=== PATIENT | male | born 1940 | race Caucasian/White ===

== ENCOUNTER 2016-04-19 12:39 | Outpatient (CLI) | payer MEDICARE, OTHER | END 2016-04-19 12:40 | disposition home or self-care (01) | DX: I51.7 Cardiomegaly (principal); R06.09 Other forms of dyspnea; Z90.2 Acquired absence of lung [part of]; Z85.118 Personal history of other malignant neoplasm of bronchus and lung; Z87.891 Personal history of nicotine dependence ==

== ENCOUNTER 2016-05-14 10:16 | Outpatient (CLI) | payer MEDICARE, OTHER | END 2016-05-14 10:17 | disposition home or self-care (01) | LOC: SC 10:16 | PROVIDERS: ATTEND Nurse Practitioner Family | DX: G47.33 Obstructive sleep apnea (adult) (pediatric) (principal) | CPT/HCPCS: 99204; G0463; 99212 ==

== ENCOUNTER 2016-06-19 13:13 | Outpatient (CLI) | payer MEDICARE, OTHER ==
[2016-06-19] MEDS ORDERED: ALBUTEROL NEB 2.5 MG/3 ML INH ONE (13:47)
== END 2016-06-19 13:14 | disposition home or self-care (01) ==
DX: R06.00 Dyspnea, unspecified (principal)
CPT/HCPCS: 94060; J7613

== ENCOUNTER 2016-06-20 09:43 | Outpatient (CLI) | payer MEDICARE, OTHER | END 2016-06-20 09:44 | disposition home or self-care (01) | DX: R06.00 Dyspnea, unspecified (principal); E78.5 Hyperlipidemia, unspecified; I10 Essential (primary) hypertension; Z87.891 Personal history of nicotine dependence ==

== ENCOUNTER 2016-06-24 13:25 | Outpatient (CLI) | payer MEDICARE, OTHER | END 2016-06-24 13:26 | disposition home or self-care (01) | DX: G47.33 Obstructive sleep apnea (adult) (pediatric) (principal) | CPT/HCPCS: 99214; G0463 ==

== ENCOUNTER 2016-08-20 11:16 | Outpatient (CLI) | payer MEDICARE, OTHER | END 2016-08-20 11:17 | disposition home or self-care (01) | DX: G47.33 Obstructive sleep apnea (adult) (pediatric) (principal) | CPT/HCPCS: 99214; G0463 ==

== ENCOUNTER 2016-09-24 12:34 | Emergency (ER) | payer MEDICARE, OTHER ==
--- NOTE | 2016-09-24 13:05 | ED Physician Documentation ---
PD HPI CHEST PAIN - Stated complaint Stated Complaint: CHEST PX - Chief complaint Chief Complaint: Cardiac - History obtained from History obtained from: Patient - Additional information Additional information: 76-year-old gentleman presents with 2 episodes of chest pain, one for 45 minutes yesterday morning, starting at rest. A second starting today around noon with exertion. Both episodes were similar, with a pressure starting in his neck and then spreading out across his anterior chest but not to the back. He had very mild sweating with it, but no increase in his chronic shortness of breath from COPD. He denies pedal edema or calf pain. He had a negative stress test 3 months ago, treadmill only, I do not see a nuclear component in the chart. Review of Systems Ten Systems: 10 systems reviewed and negative Constitutional: denies: Fever, Chills Cardiac: reports: Chest pain / pressure. denies: Palpitations, Pedal edema, Calf pain Respiratory: denies: Hemoptysis, Wheezing GI: denies: Abdominal Pain PD PAST MEDICAL HISTORY - Past Medical History Cardiovascular: High cholesterol Respiratory: Sleep apnea, CPAP use Neuro: None Endocrine/Autoimmune: None GI: None : None HEENT: Chronic hearing loss Psych: Anxiety Musculoskeletal: Osteoarthritis Derm: Psoriasis - Past Surgical History Past Surgical History: Yes General: Colonoscopy Ortho: Knee replacement Cardiovascular: Lobectomy - Present Medications Home Medications: Ambulatory Orders Medication Instructions Recorded Confirmed Simvastatin [Zocor] 20 mg PO 09/17/12 09/17/12 - Allergies Allergies/Adverse Reactions: Allergies Allergy/AdvReac Type Severity Reaction Status Date / Time No Known Drug Allergies Allergy Verified 09/17/12 19:43 - Social History Does the pt smoke?: No Smoking Status: Former smoker Does the pt drink ETOH?: Yes Does the pt have substance abuse?: No - Family History Family history: reports: Non contributory - Immunizations Immunizations are current?: No PD ED PE NORMAL - Vitals Vital signs reviewed: Yes - General General: Alert and oriented X 3, No acute distress - HEENT HEENT: PERRL, EOMI - Neck Neck: Supple, no meningeal sign, No bony TTP - Cardiac Cardiac: RRR, No murmur - Respiratory Respiratory: No respiratory distress, Clear bilaterally - Abdomen Abdomen: Normal bowel sounds, Soft, Non tender - Back Back: No CVA TTP, No spinal TTP - Derm Derm: Normal color, Warm and dry - Extremities Extremities: No edema, No calf tenderness / cord - Neuro Neuro: Alert and oriented X 3, Normal speech - Psych Psych: Normal mood, Normal affect Results - Vitals Vitals: Vital Signs - 24 hr 09/24/16 09/24/16 09/24/16 12:36 13:31 14:13 Temperature 36.0 C L Heart Rate 96 18 L 72 Respiratory 18 89 H 16 Rate Blood Pressure 175/110 H 176/118 H 178/108 H O2 Saturation 98 97 97 09/24/16 09/24/16 09/24/16 14:17 14:33 14:51 Temperature Heart Rate 69 62 56 L Respiratory 16 16 16 Rate Blood Pressure 165/96 H 161/87 H 156/91 H O2 Saturation 97 94 97 09/24/16 15:21 Temperature Heart Rate 61 Respiratory 16 Rate Blood Pressure 151/101 H O2 Saturation 97 Oxygen O2 Source Room air - EKG (time done) 1244 Rate: Rate (enter#) (87) Rhythm: NSR (with PVCs) [place]: Normal Intervals: Normal NE Ischemia: ST depression (mild V3-V5) Computer interpretation: Agree with computer - Labs Labs: Laboratory Tests 09/24/16 09/24/16 09/24/16 13:06 13:06 13:06 WBC 6.0 RBC 4.49 L Hgb 15.4 Hct 43.5 MCV 96.8 H MCH 34.3 H MCHC 35.5 RDW 13.0 Plt Count 99 L MPV 9.4 Neut # 4.2 Lymph # 1.2 L [place] # 0.5 Eos # 0.1 Baso # 0.0 Absolute Nucleated RBC 0.00 Nucleated RBCs 0.0 Sodium 133 L Potassium 4.3 Chloride 99 L Carbon Dioxide 26 Anion Gap 8.0 BUN 12 Creatinine 0.7 Estimated GFR (MDRD) 109 Glucose 108 H Calcium 9.2 Total Bilirubin 1.3 H AST 37 ALT 28 Alkaline Phosphatase 62 Total Creatine Kinase 65 CK-MB (CK-2) 5.3 Troponin I 0.26 Total Protein 7.0 Albumin 4.1 Globulin 2.9 Albumin/Globulin Ratio 1.4 Lipase 16 L - Rads (name of study) 1v chest Radiology: EMP read contemporaneously (Postoperative changes of the right lung without acute abn) PD MEDICAL DECISION MAKING - ED course ED course: 76-year-old gentleman with concerning history for unstable angina and does have an ischemic EKG although he is pain-free here. He is found to have slightly positive/indeterminate cardiac enzymes making this very likely to be unstable angina. He is started on IV and oral beta blockade, heparin, nitro paste, aspirin. , [facility] was updated by phone, . [facility] call for transfer at 155 p.m. [facility] was full as well, accepted by Dr Lorenzo Funk, to [facility]. - Critical Care Time(min): 43 Time Includes: Direct patient care, Review records, Reassess patient, Document care, Coordinate care, Medical consult, Family consult for tx dec Procedures included in critical care time: Peripheral IV Procedures excluded from critical care time: EKG Departure - Departure Disposition: 02 Transfer Acute Care Hosp Clinical Impression: Unstable angina Condition: Serious Discharge Date/Time: 09/24/16 15:49
[2016-09-24] MEDS ORDERED: ASPIRIN CHEW 81 MG TABLET PO STA (13:19)
[2016-09-24] MEDS ORDERED: ASPIRIN CHEW 81 MG TABLET ONE (13:28)
[2016-09-24 13:33] LABS: BASOPHILS % (AUTO) 0.4 %; EOSINOPHILS # (AUTO) 0.1 10^3/uL (0.0-0.7); EOSINOPHILS % (AUTO) 1.1 %; HCT - HEMATOCRIT 43.5 % (42.0-52.0); HGB - HEMOGLOBIN 15.4 g/dL (14.0-18.0); LYMPHOCYTES # (AUTO) 1.2 10^3/uL (1.5-3.5); LYMPHOCYTES % (AUTO) 19.7 %; MEAN CORPUSCULAR HEMOGLOBIN 34.3 pg (27.0-31.0); MEAN CORPUSCULAR HGB CONC 35.5 g/dL (32.0-36.0); MEAN CORPUSCULAR VOLUME 96.8 fL (80.0-94.0); MEAN PLATELET VOLUME 9.4 fL (7.4-11.4); MONOCYTES # (AUTO) 0.5 10^3/uL (0.0-1.0); NEUTROPHILS # (AUTO) 4.2 10^3/uL (1.5-6.6); NEUTROPHILS % (AUTO) 69.8 %; RED BLOOD COUNT 4.49 10^6/uL (4.70-6.10)
[2016-09-24 13:41] LABS: ALBUMIN/GLOBULIN RATIO 1.4 (1.0-2.2); BILIRUBIN,TOTAL 1.3 mg/dL (0.2-1.0); CALCIUM 9.2 mg/dL (8.5-10.3); CREATININE 0.7 mg/dL (0.6-1.2); POTASSIUM 4.3 mmol/L (3.5-5.0)
[2016-09-24 13:43] LABS: TROPONIN I 0.26 ng/mL (<0.49)
[2016-09-24 13:45] LABS: CREATINE KINASE MB 5.3 ng/mL (0.6-6.3)
[2016-09-24] MEDS ORDERED: HEPARIN 5,000 UNIT/ML VIAL IVP STA (13:52)
[2016-09-24] MEDS ORDERED: NITROGLYCERIN 2% PASTE TOP STA (13:52)
[2016-09-24] MEDS ORDERED: HEPARIN 25,000 UNITS/500 ML 500 ML IV STA (13:54)
[2016-09-24] MEDS ORDERED: METOPROLOL 5 MG/5 ML VIAL IVP STA (13:54)
[2016-09-24] MEDS ORDERED: METOPROLOL TARTRATE 50 MG TABLET PO STA (13:54)
[2016-09-24] MEDS ORDERED: HEPARIN 5,000 UNIT/ML VIAL ONE (14:05)
[2016-09-24] MEDS ORDERED: NITROGLYCERIN 2% PASTE TOP ONE (14:06)
[2016-09-24] MEDS ORDERED: METOPROLOL TARTRATE 50 MG TABLET ONE (14:06)
[2016-09-24] MEDS ORDERED: METOPROLOL 5 MG/5 ML VIAL IVP ONE (14:06)
[2016-09-24] MEDS ORDERED: HEPARIN 25,000 UNITS/500 ML 500 ML IV ONE (14:06)
--- NOTE | 2016-09-24 14:36 | XRAY Preliminary Report ---
Exam: XR Chest 1 View IMPRESSION: Postoperative changes in the right lung. No acute cardiopulmonary abnormality. [facility] SITE ID: [id number]
--- NOTE | 2016-09-24 14:38 | XRAY Report ---
EXAM: CHEST RADIOGRAPHY EXAM DATE: 09/24/2016 02:09 PM. CLINICAL HISTORY: Chest pain. History of right upper lobectomy for lung cancer in 1995. COMPARISON: 04/19/2016. 08/15/2006. TECHNIQUE: 1 view. FINDINGS: Lungs/Pleura: Chronic postoperative changes of right upper lobectomy, including right lung volume los s with associated rightwards rotation of the mediastinal structures, and right basilar pleural thicke nithya. No new focal opacity. No pleural effusion or pneumothorax. Mediastinum: Heart size is normal. The aorta is mildly tortuous, as before. Other: Right glenohumeral osteoarthritis. IMPRESSION: Postoperative changes in the right lung. No acute cardiopulmonary abnormality. [facility] Referring Provider Line: [phone] SITE ID: [id number]
[2016-09-24 15:22] VITALS: BP 151/101
== END 2016-09-24 15:49 | disposition short-term general hospital (02) ==
LOC: ED 12:34
DX: I20.0 Unstable angina (principal); E78.00 Pure hypercholesterolemia, unspecified; G47.30 Sleep apnea, unspecified; J44.9 Chronic obstructive pulmonary disease, unspecified; M19.90 Unspecified osteoarthritis, unspecified site; Z87.891 Personal history of nicotine dependence
CPT/HCPCS: 36415; 71010; 80053; 82550; 82553; 83690; 84484; 85025; 93005; 96365; 96366; 96375; 96376; 99284; 99291; A9270

== ENCOUNTER 2016-09-24 15:54 | Outpatient (CLI) | payer MEDICARE, OTHER | END 2016-09-24 15:55 | disposition critical access hospital (66) | LOC: EMS 15:54 | PROVIDERS: ATTEND Surgery | DX: R07.9 Chest pain, unspecified (principal) | CPT/HCPCS: A0170; A0425; A0426 ==

== ENCOUNTER 2016-12-13 12:08 | Outpatient (CLI) | payer MEDICARE, OTHER ==
--- NOTE | 2016-12-13 14:10 | XRAY Report ---
LEFT HIP AND PELVIS: 12/13/2016 CLINICAL INDICATION: Pain after fall. FINDINGS: Frontal view of the hips and pelvis and frogleg lateral view of the left hip demonstrate m ild osteoarthritis. There is no evidence of acute fracture. No radiopaque foreign body is seen in t he soft tissues. IMPRESSION: OSTEOARTHRITIS. NO EVIDENCE OF FRACTURE. JOB #: [id number] EXT JOB #:[id number]
== END 2016-12-13 12:09 | disposition home or self-care (01) ==
LOC: DI 12:08
PROVIDERS: ATTEND Specialist
DX: M16.12 Unilateral primary osteoarthritis, left hip (principal)

== ENCOUNTER 2017-01-26 20:58 | Outpatient (CLI) | payer MEDICARE, OTHER | END 2017-01-26 20:59 | disposition critical access hospital (66) | LOC: EMS 20:58 | PROVIDERS: ATTEND Surgery | DX: R55 Syncope and collapse (principal); R42 Dizziness and giddiness; R53.1 Weakness | CPT/HCPCS: A0425; A0427 ==

== ENCOUNTER 2017-01-26 21:13 | Emergency (ER) | payer MEDICARE, OTHER ==
[2017-01-26] MEDS ORDERED: SODIUM CHLORIDE 0.9% 1,000 ML IV ONE (21:21)
[2017-01-26 21:35] LABS: BASOPHILS % (AUTO) 0.5 %; EOSINOPHILS # (AUTO) 0.1 10^3/uL (0.0-0.7); EOSINOPHILS % (AUTO) 0.9 %; HCT - HEMATOCRIT 42.6 % (42.0-52.0); HGB - HEMOGLOBIN 14.6 g/dL (14.0-18.0); LYMPHOCYTES # (AUTO) 0.8 10^3/uL (1.5-3.5); LYMPHOCYTES % (AUTO) 10.1 %; MEAN CORPUSCULAR HEMOGLOBIN 33.3 pg (27.0-31.0); MEAN CORPUSCULAR HGB CONC 34.1 g/dL (32.0-36.0); MEAN CORPUSCULAR VOLUME 97.6 fL (80.0-94.0); MEAN PLATELET VOLUME 8.4 fL (7.4-11.4); MONOCYTES # (AUTO) 0.5 10^3/uL (0.0-1.0); MONOCYTES % (AUTO) 5.6 %; NEUTROPHILS # (AUTO) 6.8 10^3/uL (1.5-6.6); NEUTROPHILS % (AUTO) 82.9 %; RED BLOOD COUNT 4.37 10^6/uL (4.70-6.10); RED CELL DISTRIBUTION WIDTH 13.2 % (12.0-15.0); UNCORRECTED WHITE BLOOD COUNT 8.2 x10^3/uL; WHITE BLOOD COUNT 8.2 x10^3/uL (4.8-10.8)
[2017-01-26 21:46] LABS: ALBUMIN/GLOBULIN RATIO 1.6 (1.0-2.2); BILIRUBIN,TOTAL 0.8 mg/dL (0.2-1.0); CALCIUM 9.3 mg/dL (8.5-10.3); CREATININE 0.8 mg/dL (0.6-1.2); POTASSIUM 3.8 mmol/L (3.5-5.0); TOTAL PROTEIN 6.7 g/dL (6.7-8.2)
--- NOTE | 2017-01-26 21:53 | ED Physician Documentation ---
PD HPI SYNCOPE - Stated complaint Stated Complaint: GLF/DIZZINESS - History obtained from History obtained from: Patient, EMS - History of Present Illness Witnessed: Unwitnessed Timing - onset: How many hours ago (1) Associated symptoms: No: Seizure, Incontinant of urine, Headache Contributing factors: Just stood up. No: Recent med change Injury occurred: No: Fell, Head injury Similar symptoms before: Has not had sx before Recently seen: Not recently seen - Additional information Additional information: Patient is a 76 year old male who was brought in by ems for a near syncopal episode. Patient states that tonight he stood up to take his dishes to the kitchen and he got dizzy and felt like he was going to pass out. patient did not syncopize and he was able to let himself to the ground. Patient states that he had at least 2 double vodka drinks and at least 3 glasses of wine. patient denies any chest pain or trouble breathing. Review of Systems Constitutional: denies: Fever, Chills Eyes: denies: Decreased vision, Photophobia Ears: denies: Ear pain, Drainage/discharge Nose: denies: Rhinorrhea / runny nose, Congestion Throat: reports: Reviewed and negative Cardiac: denies: Chest pain / pressure, Palpitations Respiratory: denies: Cough, Wheezing GI: denies: Nausea, Vomiting : denies: Frequency Skin: denies: Rash, Lesions Musculoskeletal: denies: Extremity pain, Extremity swelling Neurologic: reports: Generalized weakness, Syncope. denies: Focal weakness, Numbness, Difficulty speaking, Headache, Head injury Immunocompromised: denies: Immunocompromised PD PAST MEDICAL HISTORY - Past Medical History Cardiovascular: High cholesterol, [place] Respiratory: Sleep apnea, CPAP use Neuro: None Endocrine/Autoimmune: None GI: None : None HEENT: Chronic hearing loss Psych: Anxiety Musculoskeletal: Osteoarthritis Derm: Psoriasis - Past Surgical History Past Surgical History: Yes General: Colonoscopy Ortho: Knee replacement Cardiovascular: Coronary stent, Lobectomy - Present Medications Home Medications: Ambulatory Orders Medication Instructions Recorded Confirmed Aspirin 01/26/17 Atorvastatin [Lipitor] 01/26/17 Metoprolol Tartrate 01/26/17 Sertraline [Zoloft] 01/26/17 Ticagrelor [Brilinta] 01/26/17 traMADol [Ultram] 01/26/17 - Allergies Allergies/Adverse Reactions: Allergies Allergy/AdvReac Type Severity Reaction Status Date / Time No Known Drug Allergies Allergy Verified 01/26/17 21:22 - Social History Does the pt smoke?: No Smoking Status: Never smoker Does the pt drink ETOH?: Yes Does the pt have substance abuse?: No - Immunizations Immunizations are current?: No - POLST Patient has POLST: No PD ED PE NORMAL - Vitals Vital signs reviewed: Yes - General General: Alert and oriented X 3, No acute distress, Well developed/nourished - HEENT HEENT: Atraumatic, PERRL, Pharynx benign - Neck Neck: Supple, no meningeal sign, No JVD - Cardiac Cardiac: RRR, No murmur - Respiratory Respiratory: No respiratory distress, Clear bilaterally - Abdomen Abdomen: Soft, Non tender, Non distended - Derm Derm: Normal color, Warm and dry - Extremities Extremities: No deformity, No calf tenderness / cord - Neuro Neuro: Alert and oriented X 3, No motor deficit, No sensory deficit, Normal speech - Psych Psych: Normal mood, Normal affect Results - Vitals Vitals: Vital Signs - 24 hr 01/26/17 01/26/17 21:14 22:24 Temperature 36.2 C L Heart Rate 81 81 Respiratory 23 18 Rate Blood Pressure 137/76 H 137/82 H O2 Saturation 94 98 Oxygen O2 Source Room air - EKG (time done) 2116 Rate: Rate (enter#) (81) Rhythm: NSR [place]: Normal Intervals: Normal [place] QRS: Normal Ischemia: Normal ST segments - Labs Labs: Laboratory Tests 01/26/17 01/26/17 01/26/17 21:20 21:20 21:20 WBC 8.2 RBC 4.37 L Hgb 14.6 Hct 42.6 MCV 97.6 H MCH 33.3 H MCHC 34.1 RDW 13.2 Plt Count 106 L MPV 8.4 Neut # 6.8 H Lymph # 0.8 L [place] # 0.5 Eos # 0.1 Baso # 0.0 Absolute Nucleated RBC 0.00 Nucleated RBC % 0.0 Sodium 131 L Potassium 3.8 Chloride 94 L Carbon Dioxide 21 Anion Gap 16.0 H BUN 14 Creatinine 0.8 Estimated GFR (MDRD) 94 Glucose 134 H Calcium 9.3 Total Bilirubin 0.8 AST 34 ALT 23 Alkaline Phosphatase 90 Troponin I < 0.04 Total Protein 6.7 Albumin 4.1 Globulin 2.6 Albumin/Globulin Ratio 1.6 Lipase 25 Ethyl Alcohol 164.1 PD MEDICAL DECISION MAKING - ED course Complexity details: reviewed old records, reviewed results, re-evaluated patient , considered differential, d/w patient, d/w family ED course: Patient was seen and examined at bedside. IV access was gained and labs were drawn. ekg was performed and was within normal limits. patient was started on fluids. patient had positive orthostatics and blood etoh was elevated and the likely cause of the symptoms. Patient's other diagnostics were within normal limits. Patient required no further work up. patient was able to ambulate without difficulty and was safe to go home with his . Departure - Departure Disposition: 01 Home, Self Care Clinical Impression: Postural dizziness with near syncope Condition: Good Instructions: ED Near Syncope Unkn Follow-Up: primary,care provider [Other] - As Needed Comments: Your diagnostics today were within normal limits. Your symptoms today are being caused by dehydration, medication and alcohol. Be careful with the amount that you drink now that you are on so many medications. You should stay well hydrated and follow up with your doctor as needed. You may return to the emergency department at any time for new, worsening or uncontrollable symptoms. Discharge Date/Time: 01/26/17 22:38
[2017-01-26 22:25] VITALS: BP 137/82
== END 2017-01-26 22:38 | disposition home or self-care (01) ==
LOC: EDUNIT# → ED 21:13
DX: R42 Dizziness and giddiness (principal); R55 Syncope and collapse; E78.00 Pure hypercholesterolemia, unspecified; I25.2 Old myocardial infarction; Z96.659 Presence of unspecified artificial knee joint; Z95.5 Presence of coronary angioplasty implant and graft; Z79.82 Long term (current) use of aspirin
CPT/HCPCS: 36415; 80053; 83690; 84484; 85025; 93005; 99284; G0480; 80320

== ENCOUNTER 2017-08-25 13:12 | Outpatient (CLI) | payer MEDICARE, OTHER | END 2017-08-25 13:13 | disposition home or self-care (01) | LOC: SC 13:12 | PROVIDERS: ATTEND Nurse Practitioner Family | DX: G47.33 Obstructive sleep apnea (adult) (pediatric) (principal) | CPT/HCPCS: 99214; G0463; 99212 ==

== ENCOUNTER 2017-10-29 13:20 | Outpatient (CLI) | payer MEDICARE, OTHER | END 2017-10-29 13:21 | disposition home or self-care (01) | LOC: SC 13:20 | PROVIDERS: ATTEND Nurse Practitioner Family | DX: G47.33 Obstructive sleep apnea (adult) (pediatric) (principal) | CPT/HCPCS: 99214; G0463; 99212 ==

== ENCOUNTER 2017-12-29 13:10 | Outpatient (CLI) | payer MEDICARE, OTHER | END 2017-12-29 13:11 | disposition home or self-care (01) | LOC: SC 13:10 | PROVIDERS: ATTEND Nurse Practitioner Family | DX: G47.33 Obstructive sleep apnea (adult) (pediatric) (principal) | CPT/HCPCS: 99214; G0463; 99212 ==

== ENCOUNTER 2018-02-06 20:10 | Outpatient (CLI) | payer MEDICARE, OTHER | END 2018-02-06 20:11 | disposition EMS.NT | LOC: EMS 20:10 | PROVIDERS: ATTEND Surgery | DX: Z03.89 Encounter for observation for other suspected diseases and conditions ruled out (principal) ==

== ENCOUNTER 2018-03-04 18:19 | Outpatient (CLI) | payer MEDICARE, OTHER | END 2018-03-04 18:20 | disposition EMS.NT | LOC: EMS 18:19 | PROVIDERS: ATTEND Surgery | DX: R53.1 Weakness (principal); W10.9XXA Fall (on) (from) unspecified stairs and steps, initial encounter; Y92.038 Other place in apartment as the place of occurrence of the external cause ==

== ENCOUNTER 2018-07-01 10:12 | Outpatient (CLI) | payer MEDICARE, OTHER | END 2018-07-01 10:13 | disposition home or self-care (01) | LOC: SC 10:12 | PROVIDERS: ATTEND Nurse Practitioner Family | DX: G47.33 Obstructive sleep apnea (adult) (pediatric) (principal) | CPT/HCPCS: 99214; G0463; 99212 ==

== ENCOUNTER 2019-11-10 12:50 | Outpatient (CLI) | payer MEDICARE, OTHER ==
[2019-11-10 13:37] VITALS: BP 138/74
--- NOTE | 2019-11-10 13:37 | SLEEP CARE CONSULTATION ---
Information from patient questionnaire entered by Akila Villasenor. I have reviewed and concur with the information entered by Akila Villasenor. This document represents the service I personally performed and the decisions made by me, Sharon Augustin, RN, MSN, [employer]. History of Present Illness Service Date and Time: 11/10/2019 1250 Previous diagnosis: Moderate, Obstructive Sleep Apnea-Hypopnea Syndrome AHI: 16.9 Reason for follow up: annual Equipment type: BiPAP Equipment obtained from: [employer] (getting supplies ok now with online ordering) Mask style: Full face Backup mask available: Yes (old mask ) Last cushion change: a few days ago Prior sleep studies: Yes Year and Where: 2010 [employer] Type of Sleep Study: Polysomnography HPI additional information: 'Has progressed from cane to walker due to leg discomfort. Seen by neurologist and back surgery indicated. CPAP Compliance Data - Data Reviewed with Patient Average duration of nightly device use: 4h 25m Compliance rate %: 60 (for 10/10/19-11/08/19; 47.2% for 05/13/19-11/08/19)) Current pressure setting (cmH2O): 13/9 Humidity settin Heated hose settin Average residual AHI: 2.2 Average large leak: 15s Subjective Missed days of use due to: reports: illness, other (surgical removal of cyst right side of neck making it difficult to use BiPAP) Patient concerns: reports: mask discomfort (at incision site - ), other (unable to fall asleep with BiPAP - has to sleep first 1-2 hours and then put on mask when sleepy). denies: aerophagia, air blowing in eyes, mask leak noise, condensation in mask/hose, nasal congestion, dry mouth, nose, throat, epistaxis Observed to snore while using device: No Current pressure setting perceived as: comfortable On therapy, patient: reports: sleeping better, more rested overall. denies: drowsiness while driving Initial [place] Sleepiness Scale score: 6 Current [place] Sleepiness Scale score: 1 Allergies and Home Medications Known drug allergies: No Home medication list reviewed: No (new list forgotten - new medication for urinary frequency. ) Review of Systems Review of systems same as previous: No (removal of right side of neck. bilateral shoulder pain affecting sleep. ) Physical Exam Blood Pressure: 138/74 Cuff size: long Heart Rate: 59 O2 Saturation: 77 Height: 6 ft Weight: 271 lb Weight change since last visit: lost 4 pounds Body Mass Index: 36.7 BMI Classification: Obese Impression and Plan 1. Obstructive Sleep Apnea-Hypopnea Syndrome, moderate, with fair treatment compliance and good apnea control. On BiPAP therapy, the patient has better sleep quality and is more rested overall. Compliance fell first due to disco mfort of mask strap due to cyst on right side of neck. Then after surgery he was not able to wear his BiPAP until incision healed. However, now it is hard to fall asleep with BiPAP and now can only wear if has fallen asleep first and then tries mask on when sleepy. This may be due to strap discomfort. To improve mask strap comfort and improve use of BiPAP, I advised mask strap covers such as [place]. Brochure given to check this or other online strap covers as discussed. I also talked about a different style of mask if this does not resolve comfort. A mask refitting prescription made. In addition, I discussed of an alarm to wake him after 20 minutes instead of 2 hours of sleep iwthout pap. Since he is planning surgery on his back, I advised him to take his BiPAP for post op use with rationale explained. Extra time taken due to patient hearing deficit and compounded by using a mask. Patient's apnea severity and rationale for treatment to reduce apnea, improve sleep quality and reduce cardiovascular and cerebrovascular events was reviewed. I also reviewed the benefit of consistent device use of CPAP for hypertension. I also discussed the importance of using BiPAP with all sleep for maximum benefit of treatment. * Continue BiPAP pressure at 13/9 cmH2O * Strap covers * CPAP alarm * Notify me if snoring with mask or feeling that the pressure is too much or too little * Attempt to lose weight * Call this office if any problems using CPAP * Return for follow up in 1-2 months , or sooner if concerns arise Visit Type: In Office Time Spent with Patient (minutes): 30 Provider Statement: I spent 100% of the Face to Face Visit with the patient with greater than 50% spent counseling the patient and coordination of care.
== END 2019-11-10 12:51 | disposition home or self-care (01) ==
LOC: SC 12:50
PROVIDERS: ATTEND Nurse Practitioner Family
DX: G47.33 Obstructive sleep apnea (adult) (pediatric) (principal); E66.9 Obesity, unspecified; Z68.36 Body mass index [BMI] 36.0-36.9, adult
CPT/HCPCS: 99214; G0463; 99212

== ENCOUNTER 2020-01-12 13:19 | Outpatient (CLI) | payer MEDICARE, OTHER | END 2020-01-12 13:20 | disposition home or self-care (01) | LOC: SC 13:19 | PROVIDERS: ATTEND Nurse Practitioner Family | DX: Z53.9 Procedure and treatment not carried out, unspecified reason (principal) ==

== ENCOUNTER 2020-04-15 17:54 | Outpatient (CLI) | payer MEDICARE, OTHER ==
--- OUTSIDE RECORDS SUMMARY | 2020-04-19 01:54 | EXTERNAL MEDICAL SUMMARY RPT | Continuity of Care Document ---
:1940 Demographics Phone Unavailable Preferred Language Unknown Marital Status Unknown Episcopalian Affiliation Unknown Race Unknown Ethnic Group Unknown Author Organization [place] Address [address] [phone] Phone Care Team Providers Name Role Phone Land Unavailable Unavailable Allergies date description facility NO KNOWN ENVIRONMENTAL ALLERGIES [facility] NO ALLERGY INFORMATION AVAILABLE [facility] NO KNOWN ALLERGIES [facility] No Known Drug Allergies [facility] NO KNOWN ENVIRONMENTAL ALLERGIES [facility] NO KNOWN ALLERG[facility] GOLD AU 198 [facility]CLINE [facility] Results Social History date description facility [id number]
== END 2020-04-15 17:55 | disposition critical access hospital (66) ==
LOC: EMS 17:54
PROVIDERS: ATTEND Surgery
DX: R10.84 Generalized abdominal pain (principal); R11.2 Nausea with vomiting, unspecified
CPT/HCPCS: A0425; A0427

== ENCOUNTER 2020-04-15 18:10 | Inpatient (IN) | payer MEDICARE, OTHER ==
[~2020-04-15 18:10] MED LIST: LACTATED RINGERS 900 ML IV ONE
[2020-04-15] MEDS ORDERED: HYDROmorphone 1 MG/ML CARPUJECT IVP STA ×3 (18:37→20:32)
[2020-04-15] MEDS ORDERED: SODIUM CHLORIDE 0.9% 1,000 ML IV STA (18:38)
[2020-04-15] MEDS ORDERED: IOVERSOL 320 100 ML VIAL IVP ONE ×2 (18:50→19:49)
[2020-04-15 18:59] LABS: BASOPHILS % (AUTO) 0.2 %; EOSINOPHILS % (AUTO) 0.1 %; HGB - HEMOGLOBIN 16.7 g/dL (14.0-18.0); LYMPHOCYTES # (AUTO) 0.4 10^3/uL (1.5-3.5); LYMPHOCYTES % (AUTO) 3.4 %; MEAN CORPUSCULAR HEMOGLOBIN 32.2 pg (27.0-31.0); MEAN CORPUSCULAR HGB CONC 34.6 g/dL (32.0-36.0); MEAN CORPUSCULAR VOLUME 93.1 fL (80.0-94.0); MEAN PLATELET VOLUME 10.5 fL (7.4-11.4); MONOCYTES # (AUTO) 0.4 10^3/uL (0.0-1.0); MONOCYTES % (AUTO) 3.6 %; NEUTROPHILS # (AUTO) 10.5 10^3/uL (1.5-6.6); NEUTROPHILS % (AUTO) 92.2 %; PLT - PLATELET COUNT 121 10^3/uL (130-450); RED BLOOD COUNT 5.19 10^6/uL (4.70-6.10); RED CELL DISTRIBUTION WIDTH 12.4 % (12.0-15.0); WHITE BLOOD COUNT 11.4 x10^3/uL (4.8-10.8)
--- NOTE | 2020-04-15 19:00 | ED Physician Documentation ---
PD HPI ABD PAIN - Stated complaint Stated Complaint: ABD PAIN, N/V - Chief complaint Chief Complaint: Abd Pain - History obtained from History obtained from: Patient - History of Present Illness Timing - onset: Today Timing - duration: Days (1) Timing - details: Gradual onset Pain level max: 7 Pain level now: 7 Quality: Aching, Pain Location: All over / everywhere Radiation: No: Chest, , Lower back, Left flank, Left shoulder, Right flank, Right shoulder, Upper back Improved by: Vomiting Worsened by: Palpation Associated symptoms: Nausea, Vomiting. No: Fever, Hematemesis, Diarrhea, Constipation, Melena, Hematochezia, Dysuria, Hematuria - Additional information Additional information: 80-year-old male states that he started develop abdominal pain this morning. Gradually worsened throughout the day. Has had nausea and vomiting. States he had a normal bowel movement earlier today. History of umbilical hernia repair in the past. No fevers. No chills. No recent antibiotics. He states that his abdomen is more swollen than usual. Review of Systems Constitutional: denies: Fever, Chills Cardiac: denies: Chest pain / pressure Respiratory: denies: Cough GI: reports: Abdominal Pain, Nausea, Vomiting Skin: denies: Rash Musculoskeletal: denies: Neck pain, Back pain Neurologic: denies: Headache PD PAST MEDICAL HISTORY - Past Medical History Past Medical History: Yes Cardiovascular: High cholesterol, [place] Respiratory: Sleep apnea, CPAP use Endocrine/Autoimmune: None GI: None : None HEENT: Chronic hearing loss Psych: Anxiety Musculoskeletal: Osteoarthritis Derm: Psoriasis - Past Surgical History Past Surgical History: Yes General: Colonoscopy Ortho: Knee replacement Cardiovascular: Coronary stent, Lobectomy - Present Medications Home Medications: Ambulatory Orders Medication Instructions Recorded Confirmed Aspirin 81 mg PO DAILY 01/26/17 04/15/20 Atorvastatin [Lipitor] 80 mg PO DAILY 01/26/17 04/15/20 Metoprolol Tartrate 25 mg PO DAILY 01/26/17 04/15/20 Sertraline [Zoloft] 100 mg PO DAILY 01/26/17 04/15/20 Albuterol Sulfate [Proair Hfa 90 mcg INH PRN PRN 04/15/20 04/15/20 Inhaler] Alpha Lipoic Acid 600 mg PO DAILY 04/15/20 04/15/20 Clobetasol 0.05% Oint [Temovate 10 mg TOP DAILY 04/15/20 04/15/20 0.05% Oint] Gabapentin [Neurontin] 300 mg PO BID 04/15/20 04/15/20 Hydrocortisone/Pramoxine 10 mg TOP DAILY 04/15/20 04/15/20 [Hydrocort-Pramoxine 2.5-1% Crm] Ipratropium [Atrovent] 42 mcg INH HS 04/15/20 04/15/20 LORazepam [Ativan] 0.5 mg PO PRN PRN 04/15/20 04/15/20 Mupirocin Calcium [Mupirocin] 15 mg TOP DAILY 04/15/20 04/15/20 Nitroglycerin [Nitrostat] 1 tab SL DAILY 04/15/20 04/15/20 Oxybutynin [Ditropan] 10 mg PO DAILY 04/15/20 04/15/20 Tamsulosin [Flomax] 0.4 mg PO DAILY 04/15/20 04/15/20 Triamcinolone 0.1% Oint [Kenalog 1 mg TOP DAILY 04/15/20 04/15/20 0.1% Oint] metroNIDAZOLE 0.75% GEL 2 gm TOP DAILY 04/15/20 04/15/20 - Allergies Allergies/Adverse Reactions: Allergies Allergy/AdvReac Type Severity Reaction Status Date / Time No Known Drug Allergies Allergy Verified 04/15/20 18:22 - Living Situation Living Arrangement: reports: At home - Social History Does the pt smoke?: No Smoking Status: Never smoker Does the pt drink ETOH?: Yes Does the pt have substance abuse?: No - Family History Family history: reports: Non contributory - Immunizations Immunizations are current?: No - POLST Patient has POLST: No PD ED PE NORMAL - Vitals Vital signs reviewed: Yes - General General: Alert and oriented X 3, No acute distress, Well developed/nourished - HEENT HEENT: PERRL, Moist mucous membranes - Neck Neck: Supple, no meningeal sign - Cardiac Cardiac: RRR - Respiratory Respiratory: No respiratory distress, Clear bilaterally - Abdomen Abdomen: Normal bowel sounds, Soft, Other (Distended abdomen, diffusely tender. No peritoneal signs. Dull to percussion on the right half of the abdomen. Tympanic to percussion on the left.) - Back Back: No CVA TTP, No spinal TTP - Derm Derm: Warm and dry - Extremities Extremities: No edema - Neuro Neuro: Alert and oriented X 3 - Psych Psych: Normal mood, Normal affect Results - Vitals Vitals: Vital Signs - 24 hr 04/15/20 04/15/20 04/15/20 18:16 18:34 20:22 Temperature 36.7 C 36.6 C 36.7 C Heart Rate 101 H 91 105 H Respiratory 18 24 21 Rate Blood Pressure 191/113 H 168/110 H 141/94 H O2 Saturation 98 99 93 Oxygen O2 Source Room air - Labs Labs: Laboratory Tests 04/15/20 04/15/20 04/15/20 18:40 18:40 19:41 WBC 11.4 H RBC 5.19 Hgb 16.7 Hct 48.3 MCV 93.1 MCH 32.2 H MCHC 34.6 RDW 12.4 Plt Count 121 L MPV 10.5 Neut # (Auto) 10.5 H Lymph # (Auto) 0.4 L [place] # (Auto) 0.4 Eos # (Auto) 0.0 Baso # (Auto) 0.0 Absolute Nucleated RBC 0.00 Nucleated RBC % 0.0 Sodium 132 L Potassium 4.1 Chloride 93 L Carbon Dioxide 22 Anion Gap 17.0 H BUN 14 Creatinine 0.9 Estimated GFR (MDRD) 81 L Glucose 205 H Lactic Acid 3.8 H* Calcium 8.6 Total Bilirubin 1.5 H AST 24 ALT 16 Alkaline Phosphatase 63 Total Protein 7.0 Albumin 4.1 Globulin 2.9 Albumin/Globulin Ratio 1.4 Lipase 13 L Nasal Adenovirus (PCR) Nasal B. parapertussis DNA (PCR) Nasal Coronavir 229E PCR Nasal Coronavir HKU1 PCR Nasal Coronavir NL63 PCR Nasal Coronavir OC43 PCR Nasal Enterovir/Rhinovir PCR Nasal Influenza B PCR Nasal Influenza A PCR Nasal Parainfluen 1 PCR Nasal Parainfluen 2 PCR Nasal Parainfluen 3 PCR Nasal Parainfluen 4 PCR Nasal RSV (PCR) Nasal B.pertussis DNA PCR Nasal C.pneumoniae (PCR) Rashaad Human Metapneumo PCR Nasal M.pneumoniae (PCR) Nasal SARS-CoV-2 (PCR) 04/15/20 20:15 WBC RBC Hgb Hct MCV MCH MCHC RDW Plt Count MPV Neut # (Auto) Lymph # (Auto) [place] # (Auto) Eos # (Auto) Baso # (Auto) Absolute Nucleated RBC Nucleated RBC % Sodium Potassium Chloride Carbon Dioxide Anion Gap BUN Creatinine Estimated GFR (MDRD) Glucose Lactic Acid Calcium Total Bilirubin AST ALT Alkaline Phosphatase Total Protein Albumin Globulin Albumin/Globulin Ratio Lipase Nasal Adenovirus (PCR) NOT DETECTED Nasal B. parapertussis DNA (PCR) NOT DETECTED Nasal Coronavir 229E PCR NOT DETECTED Nasal Coronavir HKU1 PCR NOT DETECTED Nasal Coronavir NL63 PCR NOT DETECTED Nasal Coronavir OC43 PCR NOT DETECTED Nasal Enterovir/Rhinovir PCR NOT DETECTED Nasal Influenza B PCR NOT DETECTED Nasal Influenza A PCR NOT DETECTED Nasal Parainfluen 1 PCR NOT DETECTED Nasal Parainfluen 2 PCR NOT DETECTED Nasal Parainfluen 3 PCR NOT DETECTED Nasal Parainfluen 4 PCR NOT DETECTED Nasal RSV (PCR) NOT DETECTED Nasal B.pertussis DNA PCR NOT DETECTED Nasal C.pneumoniae (PCR) NOT DETECTED Rashaad Human Metapneumo PCR NOT DETECTED Nasal M.pneumoniae (PCR) NOT DETECTED Nasal SARS-CoV-2 (PCR) NOT DETECTED - Rads (name of study) CT abdomen pelvis Radiology: Prelim report reviewed, EMP read contemporaneously PD MEDICAL DECISION MAKING - ED course Complexity details: reviewed results, re-evaluated patient, considered differential, d/w patient ED course: 80-year-old male with a small bowel obstruction secondary to incarcerated internal hernia. IV fluids given. Pain controlled. NG tube placed. Discussed the case with Dr. Williamson, general surgery on-call who will come and evaluate the patient. Contacted him at approximately 8 PM. He will plan on taking the patient to the operating room tonight. This document was made in part using voice recognition software. While efforts are made to proofread this document, sound alike and grammatical errors may occur. IMPRESSION: 1. Incarcerated small bowel-containing internal hernia within the right abdomen/pelvis, associated with severe surrounding mesenteric edema and strangulation of the herniated small bowel loops. Surgical consultation is recommended. 2. Moderate ascites. 2. Right pleural calcifications, consistent with prior hemothorax or infection. Departure - Departure Disposition: 66 [facility] DC/Xfer Clinical Impression: Obstruction concurrent with and due to internal hernia of abdomen Condition: Stable
[2020-04-15 19:10] LABS: ALBUMIN 4.1 g/dL (3.2-5.5); ALBUMIN/GLOBULIN RATIO 1.4 (1.0-2.2); BILIRUBIN,TOTAL 1.5 mg/dL (0.2-1.0); CALCIUM 8.6 mg/dL (8.5-10.3); CREATININE 0.9 mg/dL (0.6-1.2)
--- NOTE | 2020-04-15 20:13 | CT Report ---
PROCEDURE: Abdomen/Pelvis W INDICATIONS: abd pain, vomiting CONTRAST: IV CONTRAST: Optiray 320 ml: 100 PO CONTRAST: *NO PO CONTRAST TECHNIQUE: After the administration of IV contrast, 5 mm thick sections acquired from the diaphragms to the symp hysis. 5 mm thick coronal and sagittal reformats were acquired. For radiation dose reduction, the f ollowing was used: automated exposure control, adjustment of mA and/or kV according to patient size. COMPARISON: 09/17/2012 FINDINGS: Image quality: Excellent. ABDOMEN: Lung bases: Right pleural calcifications are present. Heart size is normal. Solid organs: Liver and spleen are normal in size and enhancement. Gallbladder is within normal alfaro its Biliary system is non dilated. Pancreas enhances normally. No adrenal nodules. Kidneys demons trate normal size and enhancement, without hydronephrosis. Peritoneum and bowel: Moderate gastric distention. There are multiple moderately distended small omayra l loops within the right abdomen and pelvis, which demonstrates severe surrounding mesenteric edema, as well as moderate fluid. There is an associated pinched appearance of the subtending mesentery. No pneumoperitoneum. Small amount of left abdominal pelvic fluid. Nodes and vessels: No retroperitoneal or mesenteric adenopathy by size criteria. Aorta and inferior vena cava are normal in size. Miscellaneous: No ventral hernias. PELVIS: Genitourinary: Bladder wall thickness is normal. Miscellaneous: No inguinal hernias or adenopathy. Bones: No suspicious bony lesions. No vertebral body compression fractures. IMPRESSION: 1. Incarcerated small bowel-containing internal hernia within the right abdomen/pelvis, associated wi th severe surrounding mesenteric edema and strangulation of the herniated small bowel loops. Surgica l consultation is recommended. 2. Moderate ascites. 2. Right pleural calcifications, consistent with prior hemothorax or infection. Reviewed by: Colten Nash MD on 04/15/2020 8:11 PM PST Approved by: Colten Nash MD on 04/15/2020 8:11 PM PST Station ID: [id number]
[2020-04-15 21:41] LABS: C. PNEUMONIAE- RESP PCR PANEL NOT DETECTED
--- NOTE | 2020-04-15 22:28 | SURGERY HX AND PHYSICAL(T) ---
Surgical History & Physical - Chief Complaint/HPI Chief Complaint: Abdominal pain History of Present Illness: 80-year-old male with past medical history significant for [place] status post multiple stents on baby aspirin who is notable past surgical history of umbilical hernia repair who presents with a 1 day history of abdominal pain. He reports having last eaten a banana for breakfast and thereafter suffering worsening abdominal pain, he developed nausea and vomiting. He proceeded to the emergency room and ultimately underwent CT scan which revealed internal herniation. The ER called approximately 2030 to discuss the patient. I proceeded to come in urgently for consultation. Patient denies bloody bowel movement. He denies hematemesis. He takes no systemic anticoagulation. He has had no similar episodes in the past. - PMH/PSH/Social Hx Does the pt have a hx of MRSA?: No Eyes, Ears, Nose, Throat: Chronic hearing loss Cardiovascular: High cholesterol, [place] Respiratory: Sleep apnea, CPAP use Skin: Psoriasis Endocrine/Autoimmune: None Gastrointestinal: None Urinary: None Musculoskeletal: Osteoarthritis Blood Disorders: None Psychiatric: Anxiety General: Colonoscopy Orthopedic: Knee replacement Cardiothoracic: Coronary stent, Lobectomy Smoking Status: Never smoker Does the pt drink ETOH?: Yes Frequency: Daily Does the pt have substance abuse?: No - Home Meds and Allergies Home Medications: Aspirin 81 mg PO DAILY 01/26/17 Atorvastatin [Lipitor] 80 mg PO DAILY 01/26/17 Metoprolol Tartrate 25 mg PO DAILY 01/26/17 Sertraline [Zoloft] 100 mg PO DAILY 01/26/17 Albuterol Sulfate [Proair Hfa Inhaler] 90 mcg INH PRN PRN 04/15/20 Alpha Lipoic Acid 600 mg PO DAILY 04/15/20 Clobetasol 0.05% Oint [Temovate 0.05% Oint] 10 mg TOP DAILY 04/15/20 Gabapentin [Neurontin] 300 mg PO BID 04/15/20 Hydrocortisone/Pramoxine [Hydrocort-Pramoxine 2.5-1% Crm] 10 mg TOP DAILY 04/15/20 Ipratropium [Atrovent] 42 mcg INH HS 04/15/20 LORazepam [Ativan] 0.5 mg PO PRN PRN 04/15/20 Mupirocin Calcium [Mupirocin] 15 mg TOP DAILY 04/15/20 Nitroglycerin [Nitrostat] 1 tab SL DAILY 04/15/20 Oxybutynin [Ditropan] 10 mg PO DAILY 04/15/20 Tamsulosin [Flomax] 0.4 mg PO DAILY 04/15/20 Triamcinolone 0.1% Oint [Kenalog 0.1% Oint] 1 mg TOP DAILY 04/15/20 metroNIDAZOLE 0.75% GEL 2 gm TOP DAILY 04/15/20 Allergies/Adverse Reactions: Allergies Allergy/AdvReac Type Severity Reaction Status Date / Time No Known Drug Allergies Allergy Verified 04/15/20 18:22 - Review of Systems Constitutional: Fatigue, Malaise Gastrointestinal: Nausea, Vomiting, Abdominal pain, Constipation, Other (Obstipation since onset of symptoms). No: Flatus, Diarrhea - Vital Signs Heart Rate: 105 Blood Pressure: 141/94 Temperature: 36.7 C Respiratory Rate: 21 O2 Saturation: 93 Weight (kg): 122.47 kg Height: 1.83 m - Physical Exam General Appearance: positive: Alert, Mild distress, Other (Obese elderly gentleman well-kept well-groomed) Eyes Bilatera: positive: Normal inspection, PERRL, EOMI ENT: positive: ENT inspection nml Neck: positive: Nml inspection Respiratory: positive: Chest non-tender, No respiratory distress, Breath sounds nml. negative: Wheezes, Rales, Rhonchi Cardiovascular: positive: Regular rate & rhythm, Tachycardia Peripheral Pulses: positive: 2+ Abdomen: positive: Tenderness, Guarding, Rebound, Other (Distended diffusely tender abdomen, obese, with notable rebound and guarding over the right hemiabdomen.) Back: positive: Nml inspection Extremities: positive: Non-tender, Full ROM, Nml appearance Neurologic/Psychiatric: positive: Oriented x3, CN's nml (2-12), Motor nml, Sensation nml, Mood/affect nml - Patient Review Patient Review: Problems were reviewed with the patient during this visit. Medications were reviewed with the patient during this visit. Allergies were reviewed this patient during this visit. Pertinent Tests Reviewed: All pertitent test for this patient were reviewed. - Assessment & Plan Assessment and Plan: 80-year-old male with past medical history significant for myocardial infarction status post multiple stents who is undergone umbilical hernia repair who prese nts with a 1 day history of abdominal pain and CT scan concerning for incarceration/internal hernia. Patient has leukocytosis with elevated lactate. He was advised of the indication to undergo emergent operative intervention with possibility of open abdomen, possible small bowel resection amongst others. Patient was advised of the plan operatively as follows: 1. Exploratory laparotomy 2. Possible open abdomen 3. Possible bowel resection with discontinuity 4. Remaining intubated 5. Central lines as well as hemodynamic access through arterial line 6. Necessary second look laparotomy 7. Other indicated procedures Patient was advised that the new prescription ACS surgical risk calculator revealed a risk of serious complication at 15% with a mortality of 5%. Plan is to keep the patient intubated postoperatively. Transfer the patient to the ICU. And likely return to the OR for abdominal closure following interval reexploration for second look. CT abdomen pelvis impression: 1. Incarcerated small bowel containing internal hernia within the right abdomen pelvis, associated with severe surrounding mesenteric edema and strangulation of the herniated small bowel loops. Surgical consultation is recommended. 2. Moderate ascites. 3. Right pleural calcifications consistent with prior hemothorax or infection. Lactate 3.8 White count 11.4
[2020-04-15] MEDS ORDERED: ONDANSETRON 4 MG/2 ML VIAL IVP STA (22:33)
[2020-04-15] MEDS ORDERED: BUPIVACAINE 0.5%-EPI 1:200000 PF 30 ML VIAL SUBQ ONE (22:45)
--- NOTE | 2020-04-15 23:48 | ANESTHESIA ---
Pre-Anesthesia VS, & Labs - Diagnosis incarcerated bowel - Procedure Exploratory laparotomy Vital Signs: Temp Pulse Resp BP Pulse Ox 36.7 C 105 H 21 141/94 H 93 04/15/20 22:45 04/15/20 22:45 04/15/20 22:45 04/15/20 22:45 04/15/20 22:45 Height: 6 ft Weight (kg): 122.47 kg Body Mass Index: 36.6 BMI Classification: Obese - NPO >8 hours - Lab Results Current Lab Results: Laboratory Tests 04/15/20 19:41: Lactic Acid 3.8 H* 04/15/20 18:40: Sodium 132 L, Potassium 4.1, Chloride 93 L, Carbon Dioxide 22, Anion Gap 17.0 H, BUN 14, Creatinine 0.9, Estimated GFR (MDRD) 81 L, Glucose 205 H, Calcium 8.6, Total Bilirubin 1.5 H, AST 24, ALT 16, Alkaline Phosphatase 63, Total Protein 7.0, Albumin 4.1, Globulin 2.9, Albumin/Globulin Ratio 1.4, Lipase 13 L 04/15/20 18:40: WBC 11.4 H, RBC 5.19, Hgb 16.7, Hct 48.3, MCV 93.1, MCH 32.2 H, MCHC 34.6, RDW 12.4, Plt Count 121 L, MPV 10.5, Neut # (Auto) 10.5 H, Lymph # (Auto) 0.4 L, [place] # (Auto) 0.4, Eos # (Auto) 0.0, Baso # (Auto) 0.0, Absolute Nucleated RBC 0.00, Nucleated RBC % 0.0 Lab results reviewed: Yes Fish Bones: 04/15/20 18:40 04/15/20 18:40 Home Medications and Allergies Home Medications: Ambulatory Orders Albuterol Sulfate [Proair Hfa Inhaler] 90 mcg INH PRN PRN 04/15/20 Alpha Lipoic Acid 600 mg PO DAILY 04/15/20 Clobetasol 0.05% Oint [Temovate 0.05% Oint] 10 mg TOP DAILY 04/15/20 Gabapentin [Neurontin] 300 mg PO BID 04/15/20 Hydrocortisone/Pramoxine [Hydrocort-Pramoxine 2.5-1% Crm] 10 mg TOP DAILY 04/15/20 Ipratropium [Atrovent] 42 mcg INH HS 04/15/20 LORazepam [Ativan] 0.5 mg PO PRN PRN 04/15/20 Mupirocin Calcium [Mupirocin] 15 mg TOP DAILY 04/15/20 Nitroglycerin [Nitrostat] 1 tab SL DAILY 04/15/20 Oxybutynin [Ditropan] 10 mg PO DAILY 04/15/20 Tamsulosin [Flomax] 0.4 mg PO DAILY 04/15/20 Triamcinolone 0.1% Oint [Kenalog 0.1% Oint] 1 mg TOP DAILY 04/15/20 metroNIDAZOLE 0.75% GEL 2 gm TOP DAILY 04/15/20 Aspirin 81 mg PO DAILY 01/26/17 Atorvastatin [Lipitor] 80 mg PO DAILY 01/26/17 Metoprolol Tartrate 25 mg PO DAILY 01/26/17 Sertraline [Zoloft] 100 mg PO DAILY 01/26/17 Albuterol Sulfate [Proair Hfa Inhaler] 90 mcg INH PRN PRN 04/15/20 Alpha Lipoic Acid 600 mg PO DAILY 04/15/20 Clobetasol 0.05% Oint [Temovate 0.05% Oint] 10 mg TOP DAILY 04/15/20 Gabapentin [Neurontin] 300 mg PO BID 04/15/20 Hydrocortisone/Pramoxine [Hydrocort-Pramoxine 2.5-1% Crm] 10 mg TOP DAILY 04/15/20 Ipratropium [Atrovent] 42 mcg INH HS 04/15/20 LORazepam [Ativan] 0.5 mg PO PRN PRN 04/15/20 Mupirocin Calcium [Mupirocin] 15 mg TOP DAILY 04/15/20 Nitroglycerin [Nitrostat] 1 tab SL DAILY 04/15/20 Oxybutynin [Ditropan] 10 mg PO DAILY 04/15/20 Tamsulosin [Flomax] 0.4 mg PO DAILY 04/15/20 Triamcinolone 0.1% Oint [Kenalog 0.1% Oint] 1 mg TOP DAILY 04/15/20 metroNIDAZOLE 0.75% GEL 2 gm TOP DAILY 04/15/20 Allergies/Adverse Reactions: Allergies Allergy/AdvReac Type Severity Reaction Status Date / Time No Known Drug Allergies Allergy Verified 04/15/20 18:22 Anes History & Medical History - Anesthetic History Anesthesia Complications: reports: No previous complications Family history of Anesthesia Complications: Denies Family history of Malignant Hyperthermia: Denies - Medical History Cardiovascular: reports: High cholesterol, [place] Pulmonary: reports: Sleep apnea, CPAP use Gastrointestinal: reports: None Urinary: reports: None Musculoskeletal: reports: Osteoarthritis Endocrine/Autoimmune: reports: None Blood Disorders: reports: None Skin: reports: Psoriasis Smoking Status: Never smoker - Surgical History General: Colonoscopy Cardiothoracic: Coronary stent, Lobectomy Orthopedic: Knee replacement Exam General: Alert, Oriented x3, Cooperative, Mild distress Dental: WNL Mouth Opening: Greater than 4 Fingerbreadths Neck Mobility: Reduced Mallampati classification: II Thyromental Distance: 4-6 cm Respiratory: Lungs clear, Decreased breath sounds Cardiovascular: Regular rate (tachy) Neurological: Normal speech Mental/Cognitive Status: Alert/Oriented X3, Normal for patient Plan Anesthesia Type: General (Adriana, CVL, likely intubated to ICU post-op) Consent for Procedure(s) Verified and Reviewed: Yes Code Status: Attempt Resuscitation ASA classification: 3-Severe systemic disease Is this case an emergency?: Yes
[2020-04-16] MEDS ORDERED: NALOXONE 0.4 MG/ML VIAL IVP PRN (01:20)
[2020-04-16] MEDS ORDERED: fentaNYL 100 MCG/2 ML VIAL IVP PRN (01:20)
[2020-04-16] MEDS ORDERED: METOCLOPRAMIDE 10 MG/2 ML VIAL IVP PRN (01:20)
[2020-04-16] MEDS ORDERED: ONDANSETRON 4 MG/2 ML VIAL IVP PRN (01:20)
[2020-04-16] MEDS ORDERED: ePHEDrine 50 MG/ML VIAL IVP PRN (01:20)
[2020-04-16] MEDS ORDERED: MORPHINE 2 MG/ML CARPUJECT IVP PRN (01:20)
[2020-04-16] MEDS ORDERED: HYDROmorphone 0.5 MG/0.5 ML SYRINGE IVP PRN (01:20)
[2020-04-16] MEDS ORDERED: ATROPINE ABBOJECT 1 MG/10 ML SYRINGE IVP PRN (01:20)
[2020-04-16] MEDS ORDERED: ALBUTEROL NEB 2.5 MG/3 ML INH PRN (01:56)
[2020-04-16] MEDS ORDERED: IPRATROPIUM 0.2 MG/ML NEB INH PRN (01:56)
[2020-04-16] MEDS ORDERED: LACTATED RINGERS 1,000 ML IV SCH (02:00)
[2020-04-16] MEDS ORDERED: D5NS W/20 MEQ KCL 1,000 ML IV SCH (02:00)
--- NOTE | 2020-04-16 02:15 | ANESTHESIA POST OP EVALUATION ---
Anesthesia Post Eval - Post Anesthesia Eval Vitals: Last Vital Signs Temp 96.2 C H 04/16/20 01:49 Pulse 91 04/16/20 02:05 Resp 20 04/16/20 02:05 BP 156/96 H 04/16/20 02:05 Pulse Ox 100 04/16/20 02:05 CV Function Including HR & BP: positive: Stable Pain Control: positive: Satisfactory (sedated, vss) Nausea & Vomiting: positive: Negative Mental Status: positive: Other (sedated, intubated) Respiratory Status: Airway Patent Hydration Status: Satisfactory
[2020-04-16] MEDS: PROPOFOL 500 MG/50 ML 500 MG/50 ML VIAL IV SCH ×8 (02:20→20:50)
[2020-04-16] MEDS ORDERED: PROPOFOL 500 MG/50 ML 500 MG/50 ML VIAL ONE (02:20)
--- NOTE | 2020-04-16 02:26 | OPERATIVE REPORT ---
Operative Report - General Admit Date: 04/16/20 Procedure Date: 04/16/20 Planned Procedure: 1. Exploratory laparotomy 2. Lysis of adhesions 3. Possible small bowel resection 4. Possible open abdomen 5. Other indicated procedures Pre-Op Diagnosis: Internal herniation, presumptive bowel ischemia, obesity, multiply comorbid Procedure Performed: 1. Exploratory laparotomy 2. Lysis of adhesions 3. Partial omentectomy 4. Small bowel resection with discontinuity 5. Abdominal washout 6. Wide drainage 7. Open abdomen 8. Right internal jugular triple-lumen catheter 9. Right femoral arterial line 10. Open appendectomy Post Op Diagnosis: Same, 54 inches of small bowel necrosis, abdominal adhesions, shock - Procedure Note Primary Surgeon: Teri Secondary Surgeon: Lucy Anesthesia Provider: Carlos Anesthesia Technique: Epidural Pathology: 1. 54 inches of ileum, necrotic 2. Appendix 3. Partial omentectomy Estimated Blood Loss (mL): 300 Drain/Tube Type: Martin drain, Other (1. 19 Martin x2 bilateral paracolic gutters 2. Ioban covered blue towel protecting the underlying hollow viscus structures as a nonadherent dressing 3. Kerlix x2 moistened above the Ioban covered blue towel 4. Single black sponge cut to fit atop the moistened Kerlix 5. NG tube) Indications: See EMR Findings: 1. Hypotensive requiring pressors during early portion of case making line placement challenging. 2. Proceeded with laparotomy which revealed 54 inches of bowel torsed around and within a rent in the omentum 3. Necrotic ileum measuring approximately 54 inches with no improvement after detorsion 4. Left bowel in discontinuity given patient's hypotension/shock and anticipated necessary resuscitation 5. Appendix removed 6. Partial omentectomy performed to include area of rent/internal herniation/defect 7. No other complication appreciated 8. Attempted left radial arterial line unsuccessfully secondary to inability to thread wire thus ultimately placed right femoral arterial line Complications: NONE - Other Other Information/Narrative: Full report pending.
[2020-04-16 02:39] LABS: BASOPHILS % (AUTO) 0.1 %; HGB - HEMOGLOBIN 15.6 g/dL (14.0-18.0); LYMPHOCYTES # (AUTO) 0.5 10^3/uL (1.5-3.5); LYMPHOCYTES % (AUTO) 3.9 %; MEAN CORPUSCULAR HEMOGLOBIN 32.8 pg (27.0-31.0); MEAN CORPUSCULAR VOLUME 93.7 fL (80.0-94.0); MEAN PLATELET VOLUME 10.2 fL (7.4-11.4); MONOCYTES # (AUTO) 0.7 10^3/uL (0.0-1.0); MONOCYTES % (AUTO) 6.2 %; NEUTROPHILS # (AUTO) 10.4 10^3/uL (1.5-6.6); NEUTROPHILS % (AUTO) 89.3 %; PLT - PLATELET COUNT 127 10^3/uL (130-450); RED BLOOD COUNT 4.76 10^6/uL (4.70-6.10); RED CELL DISTRIBUTION WIDTH 12.7 % (12.0-15.0); WHITE BLOOD COUNT 11.7 x10^3/uL (4.8-10.8)
--- NOTE | 2020-04-16 02:46 | OPERATIVE REPORT ---
Operative Report - General Admit Date: 04/16/20 Procedure Date: 04/16/20 Planned Procedure: 1. Ultrasound-guided venous access 2. Right internal jugular triple-lumen catheter placement Pre-Op Diagnosis: Shock, lactic acidosis, peritonitis, internal herniation, need for access Procedure Performed: 1. Ultrasound-guided venous access 2. Right internal jugular triple-lumen catheter placement Post Op Diagnosis: Same, bowel necrosis, septic shock, successful right IJ TLC placement - Procedure Note Primary Surgeon: Teri Secondary Surgeon: Carlos Anesthesia Provider: Carlos Anesthesia Technique: General ET tube Pathology: None Estimated Blood Loss (mL): 5 Indications: Hydrodynamic monitoring; reliable central venous access Findings: Successful TLC placement Complications: None - Other Other Information/Narrative: Final note pending
[2020-04-16] MEDS: PHENYLEPHRINE 20 MG in SODIUM CHLORIDE 0.9% 248 ML IV ONE ×2 (02:49→04:30)
[2020-04-16 02:51] LABS: ALBUMIN 3.3 g/dL (3.2-5.5); ALBUMIN/GLOBULIN RATIO 1.4 (1.0-2.2); BILIRUBIN,TOTAL 1.1 mg/dL (0.2-1.0); CALCIUM 7.6 mg/dL (8.5-10.3); CREATININE 0.9 mg/dL (0.6-1.2); MAGNESIUM 1.2 mg/dL (1.7-2.8); PHOSPHORUS 3.4 mg/dL (2.5-4.6); TOTAL PROTEIN 5.7 g/dL (6.7-8.2)
--- NOTE | 2020-04-16 02:52 | OPERATIVE REPORT ---
Operative Report - General Admit Date: 04/16/20 Procedure Date: 04/16/20 Planned Procedure: 1. Ultrasound-guided arterial access 2. Radial arterial line placement Pre-Op Diagnosis: Shock, internal small bowel herniation, need for pressors Procedure Performed: 1. Ultrasound-guided arterial access 2. Attempted radial arterial line placement 3. Right femoral arterial line placement, ultrasound-guided Post Op Diagnosis: SAME, ischemic bowel, septic shock, right femoral arterial wave form - Procedure Note Primary Surgeon: Teri Secondary Surgeon: michelle Anesthesia Provider: Carlos Anesthesia Technique: General ET tube Pathology: none Estimated Blood Loss (mL): 15 Indications: Hemodynamic monitoring Findings: 1. Pulsatile structure noted in the left wrist consistent with the left radial artery, arterial flash appreciated however could not pass the wire and thus deferred any further attempts given the patient's associated hypotension 2. Given the patient's hypotension after attempted left femoral arterial line which was challenging given the patient's morbid obesity we deferred further access until after exploration 3. During the final portion of this operative intervention we proceeded sterilely to access the right femoral artery which was exceedingly challenging secondary to the patient's habitus however were able to thread and modified Seldinger technique the catheter over wire into the right femoral artery with appropriate waveform and no complication. Complications: NONE - Other Other Information/Narrative: Final report pending
[2020-04-16] MEDS ORDERED: SODIUM CHLORIDE 0.9% 100ML 100 ML IV ONE (02:59)
[2020-04-16] MEDS ORDERED: PROPOFOL 1000 MG/100 ML 100 ML IV SCH (03:00)
[2020-04-16] MEDS ORDERED: VECURONIUM 100 MG in SODIUM CHLORIDE 0.9% 100ML 100 ML IVP SCH (03:00)
[2020-04-16] MEDS ORDERED: fentaNYL 2,500 MCG in SODIUM CHLORIDE 0.9% 200 ML IV SCH (03:00)
[2020-04-16] MEDS ORDERED: DEXTROSE 5%-0.9% NACL 1,000 ML IV STA (03:14)
[2020-04-16] MEDS: PIPERACILLIN/TAZOBACTAM 3.375 GM in SODIUM CHLORIDE 0.9% MINIBAG 100 ML IV SCH ×4 (03:26→21:21)
[2020-04-16] MEDS ORDERED: ROCURONIUM 50 MG/5 ML VIAL ONE (03:28)
[2020-04-16] MEDS: ROCURONIUM 500 MG in SODIUM CHLORIDE 0.9% 100ML 50 ML IV SCH ×3 (03:40→18:07)
[2020-04-16 03:45] LABS: ABG BASE EXCESS -4.2 mmol/L (-2.0-3.0); ABG HCO3 18.8 mmol/L (22.0-26.0); ABG OXYGEN SATURATION 100 % (94-98); ABG PCO2 30 mmHg (34-45); ABG PH 7.42 (7.35-7.45); ABG TCO2 19.7 MMOL/L (21.0-29.0)
[2020-04-16 03:48] LABS: ABG PO2 187 mmHg (80-100)
[2020-04-16] MEDS ORDERED: PHENYLEPHRINE 10 MG/ML VIAL ONE (04:37)
[2020-04-16 05:33] LABS: BASOPHILS % (AUTO) 0.1 %; EOSINOPHILS % (AUTO) 0.1 %; HGB - HEMOGLOBIN 14.6 g/dL (14.0-18.0); LYMPHOCYTES % (AUTO) 5.5 %; MEAN CORPUSCULAR HEMOGLOBIN 32.7 pg (27.0-31.0); MEAN CORPUSCULAR HGB CONC 34.8 g/dL (32.0-36.0); MEAN CORPUSCULAR VOLUME 93.7 fL (80.0-94.0); MONOCYTES % (AUTO) 5.2 %; NEUTROPHILS # (AUTO) 16.7 10^3/uL (1.5-6.6); NEUTROPHILS % (AUTO) 88.8 %; PLT - PLATELET COUNT 159 10^3/uL (130-450); RED BLOOD COUNT 4.47 10^6/uL (4.70-6.10); RED CELL DISTRIBUTION WIDTH 12.8 % (12.0-15.0); WHITE BLOOD COUNT 18.8 x10^3/uL (4.8-10.8)
[2020-04-16 05:46] LABS: ALBUMIN 3.3 g/dL (3.2-5.5); ALBUMIN/GLOBULIN RATIO 1.4 (1.0-2.2); CALCIUM 7.6 mg/dL (8.5-10.3); TOTAL PROTEIN 5.6 g/dL (6.7-8.2)
[2020-04-16] MEDS ORDERED: METOPROLOL 5 MG/5 ML VIAL IVP SCH (06:00)
[2020-04-16] MEDS ORDERED: CALCIUM GLUCONATE 1,000 MG in SODIUM CHLORIDE 0.9% 50 ML IV ONE (06:01)
[2020-04-16] MEDS: ACETAMINOPHEN 1,000 MG/100 ML 100 ML IV SCH ×4 (06:22→23:57)
[2020-04-16] MEDS: PANTOPRAZOLE 40 MG VIAL IVP SCH (06:22)
[2020-04-16 06:23] LABS: MAGNESIUM 1.3 mg/dL (1.7-2.8); PHOSPHORUS 1.9 mg/dL (2.5-4.6)
[2020-04-16 06:43] LABS: VBG PH 7.388 (7.31-7.41)
[2020-04-16] MEDS: INSULIN ASPART 300 UNIT/3 ML PEN SUBQ SCH ×4 (06:52→23:55)
[2020-04-16] MEDS ORDERED: SODIUM PHOSPHATE 15 MMOL in SODIUM CHLORIDE 0.9% 250 ML IV ONE (07:00)
[2020-04-16] MEDS: PHENYLEPHRINE 20 MG in SODIUM CHLORIDE 0.9% 248 ML IV SCH ×3 (08:22→15:59)
--- NOTE | 2020-04-16 08:57 | CONSULTATION NOTE ---
DATE OF SERVICE: 04/16/2020 Physician: Rhonda Alvarado MD REASON FOR CONSULTATION: Medical management and intensive care, respirator management. CONSULTATION WAS REQUESTED BY: Surgeon, Dr. Pranav Williamson. HISTORY OF PRESENT ILLNESS AND INITIAL HOSPITAL COURSE: Patient is an 80-year-old white male with past medical history of coronary artery disease, status post stent placement with history of lung cancer, status post right upper lobectomy with history of hypertension, dyslipidemia, neuropathy and sleep apnea. He is a fully functional, older gentleman who was in his usual state of health up to the evening of 04/15, at which time he developed abdominal pain. He waited several hours, and subsequently presented to the ER where he was diagnosed with acute abdomen. CT scan showing incarcerated small bowel containing internal hernia within the right abdomen/pelvis associated with severe surrounding mesenteric edema and strangulation of the herniated small bowel. Dr. Williamson was called and he took the patient urgently to the operating room. The patient had ischemic bowel. It was an extensive surgery, about 50 cm of bowel was removed and intussusception was repaired. Abdomen was left, open as the procedure was complicated, drains remained in place, patient remained ventilated and paralyzed, and the surgical plan would be to close the abdomen in 24-48 hours. Following the surgery, Dr. Williamson discussed this patient's background and current situation with me and requested that the medical service follow this patient and assist with critical care management. ER workup reviewed per electronic medical record; included laboratories. Notably, initial lactic acid was 3.8. There were minor electrolyte abnormalities including sodium 132, subsequently decreased to 129, potassium initially 4.1, increased to 5.3, blood glucose 200. Normal renal function, normal lipase and normal liver function tests. Notably, troponin was checked following the surgery and it was negative. Besides laboratories, x-rays and EKG were also reviewed PAST MEDICAL HISTORY 1. Coronary artery disease. 2. Status post stent placement. 3. Lung cancer, status post right upper lobectomy. 4. History of postural syncope and falls. 5. Osteoarthritis. 6. Benign prostatic hypertrophy. 7. Hypertension. 8. Dyslipidemia. 9. Anxiety/depression. 10. Neuropathy. 11. Obstructive sleep apnea on CPAP. 12. COPD/no history of oxygen dependence. OUTPATIENT MEDICATIONS Reviewed per electronic medical record, included 1. Zoloft 2. Metoprolol. 3. Lipitor. 4. Aspirin. 5. Nitroglycerin. 6. Lorazepam. 7. Atrovent. 8. Gabapentin. 9. Alpha lipoic acid. 10. Albuterol. 11. Calcium. 12. Metronidazole gel. 13. Flomax. 14. Oxybutynin. SOCIAL HISTORY: Patient is a functional adult. CURRENT CODE STATUS: FULL CODE. FAMILY HISTORY: Patient was sedated and mechanically ventilated when I examined him, he could not provide review. PHYSICAL EXAMINATION VITAL SIGNS: Temperature 96.2 Fahrenheit, heart rate between 80 and 90, blood pressure 120/70, respiratory rate 20 on mechanical ventilation, not overbreathing the vent as paralyzed, oxygen saturation 100%. GENERAL: Patient is a well-developed, elderly male, sedated and ventilated. LUNGS: Good air entry throughout, synchronous with the ventilator, paralyzed. No wheezes, no crackles. CARDIOVASCULAR: S1, S2. Regular. No pathologic murmur. Well perfused peripherally with pink, warm extremities. LYMPH: No lymphedema. MUSCULOSKELETAL: Atraumatic. ABDOMEN: Distended abdomen with not much bowel tone, open midline incision with surgical drains. 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 PSYCHIATRIC: Sedated. SKIN: No jaundice, no rash. ASSESSMENT AND PLAN: An 80-year-old male admitted with volvulus and ischemic bowel incarcerated internal hernia. Underwent extensive and complicated surgery after which remains intubated, critically ill, mechanically ventilated and is expected to have closure of the abdomen within 24-48 hours. Therefore, the medical service is assisting with critical care management. DIAGNOSES 1. Ischemic bowel, secondary to incarcerated internal hernia. 2. Respiratory failure requiring mechanical ventilation with an open abdomen, not extubatable. 3. Sepsis. 4. Lactic acidosis. 5. Electrolyte abnormalities including mild hyponatremia and hyperkalemia. 6. History of coronary artery disease, was on beta raymundo. 7. History of lung cancer, status post right upper lobe resection. PLAN AND ORDERS 1. Care plan was discussed with the surgical attending, Dr. Williamson. 2. Regarding mechanical ventilation, would prefer assist control and avoid higher tidal volumes. Ventilator settings were discussed with the respiratory therapist, will follow ABG and the clinical course, and adjust as needed. 3. Deep venous thrombosis prophylaxis. 4. Proton pump inhibitor. 5. Maintenance fluids. 6. Zosyn. 7. Regarding hemodynamics, patient was hemodynamically stable following the surgery. We will start perioperative beta raymundo when blood pressure stabilizes. We will try to avoid tachycardia. 8. Patient has history of lung cancer and right upper lobe resection. Therefore, we will try to avoid higher tidal volumes and will consider that when we do mechanical ventilator settings. 9. Patient has history of COPD, will continue with bronchodilator. COPD seems to be well controlled as outpatient and there was no evidence of decompensation; however, with ventilator settings, we will also try to consider patient has history of COPD and will consider that setting the I:E ratio. Thank you Dr. Williamson to invite us to participate in the care of your patient. Time spent in critical care was 50 minutes. TD: 04/16/2020 04:22 MTDD
[2020-04-16] MEDS: MAGNESIUM SULFATE 2 GRAM 2 GM/50 ML BAG IV SCH ×2 (09:05→10:04)
--- NOTE | 2020-04-16 09:23 | XRAY Report ---
PROCEDURE: Chest for Line Placement INDICATIONS: central line placed TECHNIQUE: One view of the chest was acquired. COMPARISON: CXR 04/15/2020, 09/24/2016. Lung bases on CT abdomen and pelvis 04/15/2019. FINDINGS: The patient is on the semiupright and slightly rotated. Surgical changes and devices: Endotracheal tube in the mid trachea. Right IJ central venous line with the tip at the upper one third of the SVC. Enteric tube coursing in the stomach. Surgical clips inje cting over the right mediastinum. Lungs and pleura: No pleural effusions or pneumothorax. Right lung base calcified pleural plaque is seen on recent CT. Streaky opacity at the left lung base appears new compared to prior exam. Minimal hazy opacity at the right lung base. Mediastinum: Mediastinal contours appear unchanged. Heart size is normal. Bones and chest wall: No suspicious bony lesions. Overlying soft tissues appear unremarkable. IMPRESSION: Suboptimal positioning. 1. Endotracheal tube is likely in the mid trachea. Right IJ central venous line at the upper 1/3 of t he SVC. 2. No pneumothorax seen. 3. New streaky opacity at the left lung base. Suspect mild hazy opacity at the right lung base. Favor atelectasis over pneumonia or aspiration. No significant discrepancy with the overnight preliminary interpretation. Reviewed by: Nolan Alvarado MD on 04/16/2020 8:21 AM [facility] Approved by: Nolan Alvarado MD on 04/16/2020 8:21 AM [facility] Station ID: [id number]
--- NOTE | 2020-04-16 09:32 | XRAY Report ---
PROCEDURE: Chest 1 View X-Ray INDICATIONS: chest pain TECHNIQUE: One view of the chest was acquired. COMPARISON: Lung bases on CT 04/15/2020. CXR 09/24/2016, 04/19/2016. Lung cancer screening CT 08/19/2014. FINDINGS: Surgical changes and devices: Clips overlying the right mediastinum. Lungs and pleura: No significant pleural effusions. Right lung base calcified pleural plaque. No pne umothorax. Question of mild hazy opacity at right lung base. Emphysematous change. Mediastinum: Right hilar contour is prominent. However, this may be due to patient positioning. Hear t size is normal. Bones and chest wall: No suspicious bony lesions. Overlying soft tissues appear unremarkable. IMPRESSION: Question of mild hazy opacity at right lung base. Suspect atelectasis. Right hilar contour is prominent. This could be due to the patient positioning. Adenopathy is difficu lt to exclude. No significant discrepancy with the overnight preliminary interpretation. Reviewed by: Nolan Alvarado MD on 04/16/2020 8:31 AM [facility] Approved by: Nolan Alvarado MD on 04/16/2020 8:31 AM [facility] Station ID: [id number]
[2020-04-16] MEDS: SODIUM CHLORIDE FLUSH 0.9% 10 ML SYRINGE IVP SCH ×2 (09:57→17:53)
[2020-04-16] MEDS: HEPARIN 5,000 UNIT/ML VIAL SUBQ SCH ×2 (09:57→20:52)
[2020-04-16] MEDS: CHLORHEXIDINE GLUCONATE 15 ML UDC PO SCH ×2 (09:57→20:43)
[2020-04-16] MEDS: fentaNYL 2,500 MCG/250 ML 2,500 MCG/250 ML BAG IV SCH ×2 (10:27→21:22)
[2020-04-16] MEDS: ZINC OXIDE 20% OINT 30 GM TUBE TOP PRN (11:30)
--- NOTE | 2020-04-16 12:05 | PROVIDER PROGRESS NOTE ---
Subjective - Prog Note Date Prog Note Date: 04/16/20 Prog Note Time: 12:02 - Subjective Subjective: Pt is intubated and sedated, unable to provide subjective info. Objective - Vital Signs/Intake & Output Reviewed Vital Signs: Yes Vital Signs: Vital Signs x48h Temp Pulse Pulse Resp BP BP Pulse Ox 04/16/20 11:00 66 20 90/63 98 04/16/20 10:58 66 04/16/20 10:00 68 20 95/64 99 04/16/20 09:36 71 04/16/20 09:00 70 20 88/56 L 99 04/16/20 08:00 35.8 C L 72 20 96/61 99 04/16/20 07:29 70 04/16/20 06:18 35.6 C L 79 20 91 L 04/16/20 06:00 71 20 110/60 91/74 99 04/16/20 05:50 73 04/16/20 05:00 35.6 C L 79 20 76/54 L 91 L 04/16/20 04:49 76 20 110/92 H 112/66 93 04/16/20 04:24 84 20 59/54 L 67/45 L 85 L 04/16/20 04:23 84 20 74/48 L 93/81 H 88 L 04/16/20 04:22 84 20 70/51 L 66/45 L 87 L 04/16/20 04:21 83 20 75/52 L 70/45 L 87 L 04/16/20 04:20 83 20 77/50 L 68/47 L 89 L Intake & Output: Intake & Output 04/13/20 04/14/20 04/15/20 04/16/20 23:59 23:59 23:59 23:59 Intake Total 1000 2406.197 Output Total 932 Balance 1000 1474.197 - Objective General Appearance: positive: No acute distress Eyes Bilateral: positive: Normal inspection ENT: positive: ENT inspection nml Neck: positive: Nml inspection Respiratory: positive: Breath sounds nml, Other (intubated, breathing synchronously with the vent) Cardiovascular: positive: Regular rate & rhythm Abdomen: positive: Abnml bowel sounds (hypoactive), Other (wound vac dressing in place, minimal bloody output in cannister. Additional drains with bloody output. Abdomen soft but somewhat distended.) - Lab Results Fish Bones: 04/16/20 05:20 04/16/20 05:20 Other Labs: Lab Results x24hrs 04/16/20 04/16/20 04/16/20 Range/Units 06:15 05:20 05:20 WBC (4.8-10.8) x10^3/uL RBC (4.70-6.10) 10^6/uL Hgb (14.0-18.0) g/dL Hct (42.0-52.0) % MCV (80.0-94.0) fL MCH (27.0-31.0) pg MCHC (32.0-36.0) g/dL RDW (12.0-15.0) % Plt Count (130-450) 10^3/uL MPV (7.4-11.4) fL Neut # (Auto) (1.5-6.6) 10^3/uL Lymph # (Auto) (1.5-3.5) 10^3/uL Evangeline # (Auto) (0.0-1.0) 10^3/uL Eos # (Auto) (0.0-0.7) 10^3/uL Baso # (Auto) (0.0-0.1) 10^3/uL Absolute Nucleated RBC x10^3/uL Nucleated RBC % /100WBC Bld Gas Analysis Time Sample Site ABG pH (7.35-7.45) ABG pCO2 (34-45) mmHg ABG pO2 (80-100) mmHg ABG HCO3 (22.0-26.0) mmol/L ABG Total CO2 (21.0-29.0) MMOL/L ABG O2 Saturation (94-98) % ABG Base Excess (-2.0-3.0) mmol/L Nick Test VBG pH 7.388 (7.31-7.41) Ionized Calcium 0.99 L (1.15-1.33) mmol/L Respiration Rate b/min O2 Delivery Device Vent Mode FiO2 Tidal Volume mL PEEP cmH2O Sodium (135-145) mmol/L Potassium (3.5-5.0) mmol/L Chloride (101-111) mmol/L Carbon Dioxide (21-32) mmol/L Anion Gap (6-13) BUN (6-20) mg/dL Creatinine (0.6-1.2) mg/dL Estimated GFR (MDRD) (>89) Glucose (70-100) mg/dL Lactic Acid 4.5 H* (0.5-2.2) mmol/L Calcium (8.5-10.3) mg/dL Phosphorus 1.9 L (2.5-4.6) mg/dL Magnesium 1.3 L (1.7-2.8) mg/dL Total Bilirubin (0.2-1.0) mg/dL AST (10-42) IU/L ALT (10-60) IU/L Alkaline Phosphatase (42-121) IU/L Troponin I High Sens (2.3-19.7) ng/L Total Protein (6.7-8.2) g/dL Albumin (3.2-5.5) g/dL Globulin (2.1-4.2) g/dL Albumin/Globulin Ratio (1.0-2.2) Lipase (22-51) U/L Nasal Adenovirus (PCR) Nasal B. parapertussis DNA (PCR) Nasal Coronavir 229E PCR Nasal Coronavir HKU1 PCR Nasal Coronavir NL63 PCR Nasal Coronavir OC43 PCR Nasal Enterovir/Rhinovir PCR Nasal Influenza B PCR Nasal Influenza A PCR Nasal Parainfluen 1 PCR Nasal Parainfluen 2 PCR Nasal Parainfluen 3 PCR Nasal Parainfluen 4 PCR Nasal RSV (PCR) Nasal Screen MRSA (PCR) (NEGATIVE) Nasal B.pertussis DNA PCR Nasal C.pneumoniae (PCR) Rashaad Human Metapneumo PCR Nasal M.pneumoniae (PCR) Nasal SARS-CoV-2 (PCR) 04/16/20 04/16/20 04/16/20 Range/Units 05:20 05:20 03:27 WBC 18.8 H (4.8-10.8) x10^3/uL RBC 4.47 L (4.70-6.10) 10^6/uL Hgb 14.6 (14.0-18.0) g/dL Hct 41.9 L (42.0-52.0) % MCV 93.7 (80.0-94.0) fL MCH 32.7 H (27.0-31.0) pg MCHC 34.8 (32.0-36.0) g/dL RDW 12.8 (12.0-15.0) % Plt Count 159 (130-450) 10^3/uL MPV 10.0 (7.4-11.4) fL Neut # (Auto) 16.7 H (1.5-6.6) 10^3/uL Lymph # (Auto) 1.0 L (1.5-3.5) 10^3/uL Evangeline # (Auto) 1.0 (0.0-1.0) 10^3/uL Eos # (Auto) 0.0 (0.0-0.7) 10^3/uL Baso # (Auto) 0.0 (0.0-0.1) 10^3/uL Absolute Nucleated RBC 0.00 x10^3/uL Nucleated RBC % 0.0 /100WBC Bld Gas Analysis Time 0340 Sample Site A-LINE ABG pH 7.42 (7.35-7.45) ABG pCO2 30 L (34-45) mmHg ABG pO2 187 H* (80-100) mmHg ABG HCO3 18.8 L (22.0-26.0) mmol/L ABG Total CO2 19.7 L (21.0-29.0) MMOL/L ABG O2 Saturation 100 H (94-98) % ABG Base Excess -4.2 L (-2.0-3.0) mmol/L Nick Test NOT APPLICABLE VBG pH (7.31-7.41) Ionized Calcium (1.15-1.33) mmol/L Respiration Rate 20 b/min O2 Delivery Device VENTILATOR Vent Mode SIMV FiO2 75.00 Tidal Volume 600 mL PEEP 5 cmH2O Sodium 130 L (135-145) mmol/L Potassium 4.6 (3.5-5.0) mmol/L Chloride 97 L (101-111) mmol/L Carbon Dioxide 21 (21-32) mmol/L Anion Gap 12.0 (6-13) BUN 18 (6-20) mg/dL Creatinine 1.0 (0.6-1.2) mg/dL Estimated GFR (MDRD) 72 L (>89) Glucose 237 H (70-100) mg/dL Lactic Acid (0.5-2.2) mmol/L Calcium 7.6 L (8.5-10.3) mg/dL Phosphorus (2.5-4.6) mg/dL Magnesium (1.7-2.8) mg/dL Total Bilirubin 1.0 (0.2-1.0) mg/dL AST 21 (10-42) IU/L ALT 15 (10-60) IU/L Alkaline Phosphatase 43 (42-121) IU/L Troponin I High Sens (2.3-19.7) ng/L Total Protein 5.6 L (6.7-8.2) g/dL Albumin 3.3 (3.2-5.5) g/dL Globulin 2.3 (2.1-4.2) g/dL Albumin/Globulin Ratio 1.4 (1.0-2.2) Lipase (22-51) U/L Nasal Adenovirus (PCR) Nasal B. parapertussis DNA (PCR) Nasal Coronavir 229E PCR Nasal Coronavir HKU1 PCR Nasal Coronavir NL63 PCR Nasal Coronavir OC43 PCR Nasal Enterovir/Rhinovir PCR Nasal Influenza B PCR Nasal Influenza A PCR Nasal Parainfluen 1 PCR Nasal Parainfluen 2 PCR Nasal Parainfluen 3 PCR Nasal Parainfluen 4 PCR Nasal RSV (PCR) Nasal Screen MRSA (PCR) (NEGATIVE) Nasal B.pertussis DNA PCR Nasal C.pneumoniae (PCR) Rashaad Human Metapneumo PCR Nasal M.pneumoniae (PCR) Nasal SARS-CoV-2 (PCR) 04/16/20 04/16/20 04/16/20 Range/Units 02:25 02:25 02:25 WBC 11.7 H (4.8-10.8) x10^3/uL RBC 4.76 (4.70-6.10) 10^6/uL Hgb 15.6 (14.0-18.0) g/dL Hct 44.6 (42.0-52.0) % MCV 93.7 (80.0-94.0) fL MCH 32.8 H (27.0-31.0) pg MCHC 35.0 (32.0-36.0) g/dL RDW 12.7 (12.0-15.0) % Plt Count 127 L (130-450) 10^3/uL MPV 10.2 (7.4-11.4) fL Neut # (Auto) 10.4 H (1.5-6.6) 10^3/uL Lymph # (Auto) 0.5 L (1.5-3.5) 10^3/uL Evangeline # (Auto) 0.7 (0.0-1.0) 10^3/uL Eos # (Auto) 0.0 (0.0-0.7) 10^3/uL Baso # (Auto) 0.0 (0.0-0.1) 10^3/uL Absolute Nucleated RBC 0.00 x10^3/uL Nucleated RBC % 0.0 /100WBC Bld Gas Analysis Time Sample Site ABG pH (7.35-7.45) ABG pCO2 (34-45) mmHg ABG pO2 (80-100) mmHg ABG HCO3 (22.0-26.0) mmol/L ABG Total CO2 (21.0-29.0) MMOL/L ABG O2 Saturation (94-98) % ABG Base Excess (-2.0-3.0) mmol/L Nick Test VBG pH (7.31-7.41) Ionized Calcium (1.15-1.33) mmol/L Respiration Rate b/min O2 Delivery Device Vent Mode FiO2 Tidal Volume mL PEEP cmH2O Sodium 129 L (135-145) mmol/L Potassium 5.3 H (3.5-5.0) mmol/L Chloride 97 L (101-111) mmol/L Carbon Dioxide 21 (21-32) mmol/L Anion Gap 11.0 (6-13) BUN 16 (6-20) mg/dL Creatinine 0.9 (0.6-1.2) mg/dL Estimated GFR (MDRD) 81 L (>89) Glucose 214 H (70-100) mg/dL Lactic Acid (0.5-2.2) mmol/L Calcium 7.6 L (8.5-10.3) mg/dL Phosphorus 3.4 (2.5-4.6) mg/dL Magnesium 1.2 L (1.7-2.8) mg/dL Total Bilirubin 1.1 H (0.2-1.0) mg/dL AST 20 (10-42) IU/L ALT 15 (10-60) IU/L Alkaline Phosphatase 47 (42-121) IU/L Troponin I High Sens (2.3-19.7) ng/L Total Protein 5.7 L (6.7-8.2) g/dL Albumin 3.3 (3.2-5.5) g/dL Globulin 2.4 (2.1-4.2) g/dL Albumin/Globulin Ratio 1.4 (1.0-2.2) Lipase (22-51) U/L Nasal Adenovirus (PCR) Nasal B. parapertussis DNA (PCR) Nasal Coronavir 229E PCR Nasal Coronavir HKU1 PCR Nasal Coronavir NL63 PCR Nasal Coronavir OC43 PCR Nasal Enterovir/Rhinovir PCR Nasal Influenza B PCR Nasal Influenza A PCR Nasal Parainfluen 1 PCR Nasal Parainfluen 2 PCR Nasal Parainfluen 3 PCR Nasal Parainfluen 4 PCR Nasal RSV (PCR) Nasal Screen MRSA (PCR) NEGATIVE (NEGATIVE) Nasal B.pertussis DNA PCR Nasal C.pneumoniae (PCR) Rashaad Human Metapneumo PCR Nasal M.pneumoniae (PCR) Nasal SARS-CoV-2 (PCR) 04/16/20 04/15/20 04/15/20 Range/Units 02:25 20:15 19:41 WBC (4.8-10.8) x10^3/uL RBC (4.70-6.10) 10^6/uL Hgb (14.0-18.0) g/dL Hct (42.0-52.0) % MCV (80.0-94.0) fL MCH (27.0-31.0) pg MCHC (32.0-36.0) g/dL RDW (12.0-15.0) % Plt Count (130-450) 10^3/uL MPV (7.4-11.4) fL Neut # (Auto) (1.5-6.6) 10^3/uL Lymph # (Auto) (1.5-3.5) 10^3/uL Evangeline # (Auto) (0.0-1.0) 10^3/uL Eos # (Auto) (0.0-0.7) 10^3/uL Baso # (Auto) (0.0-0.1) 10^3/uL Absolute Nucleated RBC x10^3/uL Nucleated RBC % /100WBC Bld Gas Analysis Time Sample Site ABG pH (7.35-7.45) ABG pCO2 (34-45) mmHg ABG pO2 (80-100) mmHg ABG HCO3 (22.0-26.0) mmol/L ABG Total CO2 (21.0-29.0) MMOL/L ABG O2 Saturation (94-98) % ABG Base Excess (-2.0-3.0) mmol/L Nick Test VBG pH (7.31-7.41) Ionized Calcium (1.15-1.33) mmol/L Respiration Rate b/min O2 Delivery Device Vent Mode FiO2 Tidal Volume mL PEEP cmH2O Sodium (135-145) mmol/L Potassium (3.5-5.0) mmol/L Chloride (101-111) mmol/L Carbon Dioxide (21-32) mmol/L Anion Gap (6-13) BUN (6-20) mg/dL Creatinine (0.6-1.2) mg/dL Estimated GFR (MDRD) (>89) Glucose (70-100) mg/dL Lactic Acid 3.8 H* (0.5-2.2) mmol/L Calcium (8.5-10.3) mg/dL Phosphorus (2.5-4.6) mg/dL Magnesium (1.7-2.8) mg/dL Total Bilirubin (0.2-1.0) mg/dL AST (10-42) IU/L ALT (10-60) IU/L Alkaline Phosphatase (42-121) IU/L Troponin I High Sens 13.4 (2.3-19.7) ng/L Total Protein (6.7-8.2) g/dL Albumin (3.2-5.5) g/dL Globulin (2.1-4.2) g/dL Albumin/Globulin Ratio (1.0-2.2) Lipase (22-51) U/L Nasal Adenovirus (PCR) NOT DETECTED Nasal B. parapertussis DNA (PCR) NOT DETECTED Nasal Coronavir 229E PCR NOT DETECTED Nasal Coronavir HKU1 PCR NOT DETECTED Nasal Coronavir NL63 PCR NOT DETECTED Nasal Coronavir OC43 PCR NOT DETECTED Nasal Enterovir/Rhinovir PCR NOT DETECTED Nasal Influenza B PCR NOT DETECTED Nasal Influenza A PCR NOT DETECTED Nasal Parainfluen 1 PCR NOT DETECTED Nasal Parainfluen 2 PCR NOT DETECTED Nasal Parainfluen 3 PCR NOT DETECTED Nasal Parainfluen 4 PCR NOT DETECTED Nasal RSV (PCR) NOT DETECTED Nasal Screen MRSA (PCR) (NEGATIVE) Nasal B.pertussis DNA PCR NOT DETECTED Nasal C.pneumoniae (PCR) NOT DETECTED Rashaad Human Metapneumo PCR NOT DETECTED Nasal M.pneumoniae (PCR) NOT DETECTED Nasal SARS-CoV-2 (PCR) NOT DETECTED 04/15/20 04/15/20 Range/Units 18:40 18:40 WBC 11.4 H (4.8-10.8) x10^3/uL RBC 5.19 (4.70-6.10) 10^6/uL Hgb 16.7 (14.0-18.0) g/dL Hct 48.3 (42.0-52.0) % MCV 93.1 (80.0-94.0) fL MCH 32.2 H (27.0-31.0) pg MCHC 34.6 (32.0-36.0) g/dL RDW 12.4 (12.0-15.0) % Plt Count 121 L (130-450) 10^3/uL MPV 10.5 (7.4-11.4) fL Neut # (Auto) 10.5 H (1.5-6.6) 10^3/uL Lymph # (Auto) 0.4 L (1.5-3.5) 10^3/uL Evangeline # (Auto) 0.4 (0.0-1.0) 10^3/uL Eos # (Auto) 0.0 (0.0-0.7) 10^3/uL Baso # (Auto) 0.0 (0.0-0.1) 10^3/uL Absolute Nucleated RBC 0.00 x10^3/uL Nucleated RBC % 0.0 /100WBC Bld Gas Analysis Time Sample Site ABG pH (7.35-7.45) ABG pCO2 (34-45) mmHg ABG pO2 (80-100) mmHg ABG HCO3 (22.0-26.0) mmol/L ABG Total CO2 (21.0-29.0) MMOL/L ABG O2 Saturation (94-98) % ABG Base Excess (-2.0-3.0) mmol/L Nick Test VBG pH (7.31-7.41) Ionized Calcium (1.15-1.33) mmol/L Respiration Rate b/min O2 Delivery Device Vent Mode FiO2 Tidal Volume mL PEEP cmH2O Sodium 132 L (135-145) mmol/L Potassium 4.1 (3.5-5.0) mmol/L Chloride 93 L (101-111) mmol/L Carbon Dioxide 22 (21-32) mmol/L Anion Gap 17.0 H (6-13) BUN 14 (6-20) mg/dL Creatinine 0.9 (0.6-1.2) mg/dL Estimated GFR (MDRD) 81 L (>89) Glucose 205 H (70-100) mg/dL Lactic Acid (0.5-2.2) mmol/L Calcium 8.6 (8.5-10.3) mg/dL Phosphorus (2.5-4.6) mg/dL Magnesium (1.7-2.8) mg/dL Total Bilirubin 1.5 H (0.2-1.0) mg/dL AST 24 (10-42) IU/L ALT 16 (10-60) IU/L Alkaline Phosphatase 63 (42-121) IU/L Troponin I High Sens (2.3-19.7) ng/L Total Protein 7.0 (6.7-8.2) g/dL Albumin 4.1 (3.2-5.5) g/dL Globulin 2.9 (2.1-4.2) g/dL Albumin/Globulin Ratio 1.4 (1.0-2.2) Lipase 13 L (22-51) U/L Nasal Adenovirus (PCR) Nasal B. parapertussis DNA (PCR) Nasal Coronavir 229E PCR Nasal Coronavir HKU1 PCR Nasal Coronavir NL63 PCR Nasal Coronavir OC43 PCR Nasal Enterovir/Rhinovir PCR Nasal Influenza B PCR Nasal Influenza A PCR Nasal Parainfluen 1 PCR Nasal Parainfluen 2 PCR Nasal Parainfluen 3 PCR Nasal Parainfluen 4 PCR Nasal RSV (PCR) Nasal Screen MRSA (PCR) (NEGATIVE) Nasal B.pertussis DNA PCR Nasal C.pneumoniae (PCR) Rashaad Human Metapneumo PCR Nasal M.pneumoniae (PCR) Nasal SARS-CoV-2 (PCR)
--- NOTE | 2020-04-16 12:11 | PROVIDER PROGRESS NOTE ---
Subjective - Prog Note Date Prog Note Date: 04/16/20 Prog Note Time: 12:09 - Subjective Subjective: Pt intubated and sedated, unable to provide. Objective - Vital Signs/Intake & Output Reviewed Vital Signs: Yes Vital Signs: Vital Signs Temp Pulse Pulse Resp BP Pulse Ox 04/16/20 12:00 37.2 C 66 20 85/59 L 98 04/16/20 11:00 66 20 90/63 98 04/16/20 10:58 66 04/16/20 10:00 68 20 95/64 99 04/16/20 09:36 71 04/16/20 09:00 70 20 88/56 L 99 Intake & Output: Intake & Output 04/13/20 04/14/20 04/15/20 04/16/20 23:59 23:59 23:59 23:59 Intake Total 1000 2451.169 Output Total 932 Balance 1000 1519.169 - Objective General Appearance: positive: No acute distress Eyes Bilateral: positive: Normal inspection ENT: positive: ENT inspection nml Neck: positive: Nml inspection, Other (R IJ in place) Respiratory: positive: Breath sounds nml, Other (intubated, breathing s ynchronously with the vent) Cardiovascular: positive: Regular rate & rhythm Peripheral Pulses: 2+ Dorsalis pedis (R), 2+ Dorsalis pedis (L) Abdomen: positive: Abnml bowel sounds (hypoactive), Other (abdominal surgical abthera wound vac dressing in place, minimal bloody output in canister. Bloody drainage present in jackeline drains. abdomen soft) Skin: positive: Pallor Extremities: positive: Other (bilateral upper and lower extremity edema present) Neurologic/Psychiatric: positive: Other (sedated) - Lab Results Fish Bones: 04/17/20 04:50 04/17/20 04:50 Other Labs: Lab Results x24hrs 04/16/20 04/16/20 04/16/20 Range/Units 06:15 05:20 05:20 WBC (4.8-10.8) x10^3/uL RBC (4.70-6.10) 10^6/uL Hgb (14.0-18.0) g/dL Hct (42.0-52.0) % MCV (80.0-94.0) fL MCH (27.0-31.0) pg MCHC (32.0-36.0) g/dL RDW (12.0-15.0) % Plt Count (130-450) 10^3/uL MPV (7.4-11.4) fL Neut # (Auto) (1.5-6.6) 10^3/uL Lymph # (Auto) (1.5-3.5) 10^3/uL [place] # (Auto) (0.0-1.0) 10^3/uL Eos # (Auto) (0.0-0.7) 10^3/uL Baso # (Auto) (0.0-0.1) 10^3/uL Absolute Nucleated RBC x10^3/uL Nucleated RBC % /100WBC Bld Gas Analysis Time Sample Site ABG pH (7.35-7.45) ABG pCO2 (34-45) mmHg ABG pO2 (80-100) mmHg ABG HCO3 (22.0-26.0) mmol/L ABG Total CO2 (21.0-29.0) MMOL/L ABG O2 Saturation (94-98) % ABG Base Excess (-2.0-3.0) mmol/L Nick Test VBG pH 7.388 (7.31-7.41) Ionized Calcium 0.99 L (1.15-1.33) mmol/L Respiration Rate b/min O2 Delivery Device Vent Mode FiO2 Tidal Volume mL PEEP cmH2O Sodium (135-145) mmol/L Potassium (3.5-5.0) mmol/L Chloride (101-111) mmol/L Carbon Dioxide (21-32) mmol/L Anion Gap (6-13) BUN (6-20) mg/dL Creatinine (0.6-1.2) mg/dL Estimated GFR (MDRD) (>89) Glucose (70-100) mg/dL Lactic Acid 4.5 H* (0.5-2.2) mmol/L Calcium (8.5-10.3) mg/dL Phosphorus 1.9 L (2.5-4.6) mg/dL Magnesium 1.3 L (1.7-2.8) mg/dL Total Bilirubin (0.2-1.0) mg/dL AST (10-42) IU/L ALT (10-60) IU/L Alkaline Phosphatase (42-121) IU/L Troponin I High Sens (2.3-19.7) ng/L Total Protein (6.7-8.2) g/dL Albumin (3.2-5.5) g/dL Globulin (2.1-4.2) g/dL Albumin/Globulin Ratio (1.0-2.2) Lipase (22-51) U/L Nasal Adenovirus (PCR) Nasal B. parapertussis DNA (PCR) Nasal Coronavir 229E PCR Nasal Coronavir HKU1 PCR Nasal Coronavir NL63 PCR Nasal Coronavir OC43 PCR Nasal Enterovir/Rhinovir PCR Nasal Influenza B PCR Nasal Influenza A PCR Nasal Parainfluen 1 PCR Nasal Parainfluen 2 PCR Nasal Parainfluen 3 PCR Nasal Parainfluen 4 PCR Nasal RSV (PCR) Nasal Screen MRSA (PCR) (NEGATIVE) Nasal B.pertussis DNA PCR Nasal C.pneumoniae (PCR) Rashaad Human Metapneumo PCR Nasal M.pneumoniae (PCR) Nasal SARS-CoV-2 (PCR) 04/16/20 04/16/20 04/16/20 Range/Units 05:20 05:20 03:27 WBC 18.8 H (4.8-10.8) x10^3/uL RBC 4.47 L (4.70-6.10) 10^6/uL Hgb 14.6 (14.0-18.0) g/dL Hct 41.9 L (42.0-52.0) % MCV 93.7 (80.0-94.0) fL MCH 32.7 H (27.0-31.0) pg MCHC 34.8 (32.0-36.0) g/dL RDW 12.8 (12.0-15.0) % Plt Count 159 (130-450) 10^3/uL MPV 10.0 (7.4-11.4) fL Neut # (Auto) 16.7 H (1.5-6.6) 10^3/uL Lymph # (Auto) 1.0 L (1.5-3.5) 10^3/uL [place] # (Auto) 1.0 (0.0-1.0) 10^3/uL Eos # (Auto) 0.0 (0.0-0.7) 10^3/uL Baso # (Auto) 0.0 (0.0-0.1) 10^3/uL Absolute Nucleated RBC 0.00 x10^3/uL Nucleated RBC % 0.0 /100WBC Bld Gas Analysis Time 0340 Sample Site A-LINE ABG pH 7.42 (7.35-7.45) ABG pCO2 30 L (34-45) mmHg ABG pO2 187 H* (80-100) mmHg ABG HCO3 18.8 L (22.0-26.0) mmol/L ABG Total CO2 19.7 L (21.0-29.0) MMOL/L ABG O2 Saturation 100 H (94-98) % ABG Base Excess -4.2 L (-2.0-3.0) mmol/L Nick Test NOT APPLICABLE VBG pH (7.31-7.41) Ionized Calcium (1.15-1.33) mmol/L Respiration Rate 20 b/min O2 Delivery Device VENTILATOR Vent Mode SIMV FiO2 75.00 Tidal Volume 600 mL PEEP 5 cmH2O Sodium 130 L (135-145) mmol/L Potassium 4.6 (3.5-5.0) mmol/L Chloride 97 L (101-111) mmol/L Carbon Dioxide 21 (21-32) mmol/L Anion Gap 12.0 (6-13) BUN 18 (6-20) mg/dL Creatinine 1.0 (0.6-1.2) mg/dL Estimated GFR (MDRD) 72 L (>89) Glucose 237 H (70-100) mg/dL Lactic Acid (0.5-2.2) mmol/L Calcium 7.6 L (8.5-10.3) mg/dL Phosphorus (2.5-4.6) mg/dL Magnesium (1.7-2.8) mg/dL Total Bilirubin 1.0 (0.2-1.0) mg/dL AST 21 (10-42) IU/L ALT 15 (10-60) IU/L Alkaline Phosphatase 43 (42-121) IU/L Troponin I High Sens (2.3-19.7) ng/L Total Protein 5.6 L (6.7-8.2) g/dL Albumin 3.3 (3.2-5.5) g/dL Globulin 2.3 (2.1-4.2) g/dL Albumin/Globulin Ratio 1.4 (1.0-2.2) Lipase (22-51) U/L Nasal Adenovirus (PCR) Nasal B. parapertussis DNA (PCR) Nasal Coronavir 229E PCR Nasal Coronavir HKU1 PCR Nasal Coronavir NL63 PCR Nasal Coronavir OC43 PCR Nasal Enterovir/Rhinovir PCR Nasal Influenza B PCR Nasal Influenza A PCR Nasal Parainfluen 1 PCR Nasal Parainfluen 2 PCR Nasal Parainfluen 3 PCR Nasal Parainfluen 4 PCR Nasal RSV (PCR) Nasal Screen MRSA (PCR) (NEGATIVE) Nasal B.pertussis DNA PCR Nasal C.pneumoniae (PCR) Rashaad Human Metapneumo PCR Nasal M.pneumoniae (PCR) Nasal SARS-CoV-2 (PCR) 04/16/20 04/16/20 04/16/20 Range/Units 02:25 02:25 02:25 WBC 11.7 H (4.8-10.8) x10^3/uL RBC 4.76 (4.70-6.10) 10^6/uL Hgb 15.6 (14.0-18.0) g/dL Hct 44.6 (42.0-52.0) % MCV 93.7 (80.0-94.0) fL MCH 32.8 H (27.0-31.0) pg MCHC 35.0 (32.0-36.0) g/dL RDW 12.7 (12.0-15.0) % Plt Count 127 L (130-450) 10^3/uL MPV 10.2 (7.4-11.4) fL Neut # (Auto) 10.4 H (1.5-6.6) 10^3/uL Lymph # (Auto) 0.5 L (1.5-3.5) 10^3/uL [place] # (Auto) 0.7 (0.0-1.0) 10^3/uL Eos # (Auto) 0.0 (0.0-0.7) 10^3/uL Baso # (Auto) 0.0 (0.0-0.1) 10^3/uL Absolute Nucleated RBC 0.00 x10^3/uL Nucleated RBC % 0.0 /100WBC Bld Gas Analysis Time Sample Site ABG pH (7.35-7.45) ABG pCO2 (34-45) mmHg ABG pO2 (80-100) mmHg ABG HCO3 (22.0-26.0) mmol/L ABG Total CO2 (21.0-29.0) MMOL/L ABG O2 Saturation (94-98) % ABG Base Excess (-2.0-3.0) mmol/L Nick Test VBG pH (7.31-7.41) Ionized Calcium (1.15-1.33) mmol/L Respiration Rate b/min O2 Delivery Device Vent Mode FiO2 Tidal Volume mL PEEP cmH2O Sodium 129 L (135-145) mmol/L Potassium 5.3 H (3.5-5.0) mmol/L Chloride 97 L (101-111) mmol/L Carbon Dioxide 21 (21-32) mmol/L Anion Gap 11.0 (6-13) BUN 16 (6-20) mg/dL Creatinine 0.9 (0.6-1.2) mg/dL Estimated GFR (MDRD) 81 L (>89) Glucose 214 H (70-100) mg/dL Lactic Acid (0.5-2.2) mmol/L Calcium 7.6 L (8.5-10.3) mg/dL Phosphorus 3.4 (2.5-4.6) mg/dL Magnesium 1.2 L (1.7-2.8) mg/dL Total Bilirubin 1.1 H (0.2-1.0) mg/dL AST 20 (10-42) IU/L ALT 15 (10-60) IU/L Alkaline Phosphatase 47 (42-121) IU/L Troponin I High Sens (2.3-19.7) ng/L Total Protein 5.7 L (6.7-8.2) g/dL Albumin 3.3 (3.2-5.5) g/dL Globulin 2.4 (2.1-4.2) g/dL Albumin/Globulin Ratio 1.4 (1.0-2.2) Lipase (22-51) U/L Nasal Adenovirus (PCR) Nasal B. parapertussis DNA (PCR) Nasal Coronavir 229E PCR Nasal Coronavir HKU1 PCR Nasal Coronavir NL63 PCR Nasal Coronavir OC43 PCR Nasal Enterovir/Rhinovir PCR Nasal Influenza B PCR Nasal Influenza A PCR Nasal Parainfluen 1 PCR Nasal Parainfluen 2 PCR Nasal Parainfluen 3 PCR Nasal Parainfluen 4 PCR Nasal RSV (PCR) Nasal Screen MRSA (PCR) NEGATIVE (NEGATIVE) Nasal B.pertussis DNA PCR Nasal C.pneumoniae (PCR) Rashaad Human Metapneumo PCR Nasal M.pneumoniae (PCR) Nasal SARS-CoV-2 (PCR) 04/16/20 04/15/20 04/15/20 Range/Units 02:25 20:15 19:41 WBC (4.8-10.8) x10^3/uL RBC (4.70-6.10) 10^6/uL Hgb (14.0-18.0) g/dL Hct (42.0-52.0) % MCV (80.0-94.0) fL MCH (27.0-31.0) pg MCHC (32.0-36.0) g/dL RDW (12.0-15.0) % Plt Count (130-450) 10^3/uL MPV (7.4-11.4) fL Neut # (Auto) (1.5-6.6) 10^3/uL Lymph # (Auto) (1.5-3.5) 10^3/uL [place] # (Auto) (0.0-1.0) 10^3/uL Eos # (Auto) (0.0-0.7) 10^3/uL Baso # (Auto) (0.0-0.1) 10^3/uL Absolute Nucleated RBC x10^3/uL Nucleated RBC % /100WBC Bld Gas Analysis Time Sample Site ABG pH (7.35-7.45) ABG pCO2 (34-45) mmHg ABG pO2 (80-100) mmHg ABG HCO3 (22.0-26.0) mmol/L ABG Total CO2 (21.0-29.0) MMOL/L ABG O2 Saturation (94-98) % ABG Base Excess (-2.0-3.0) mmol/L Nick Test VBG pH (7.31-7.41) Ionized Calcium (1.15-1.33) mmol/L Respiration Rate b/min O2 Delivery Device Vent Mode FiO2 Tidal Volume mL PEEP cmH2O Sodium (135-145) mmol/L Potassium (3.5-5.0) mmol/L Chloride (101-111) mmol/L Carbon Dioxide (21-32) mmol/L Anion Gap (6-13) BUN (6-20) mg/dL Creatinine (0.6-1.2) mg/dL Estimated GFR (MDRD) (>89) Glucose (70-100) mg/dL Lactic Acid 3.8 H* (0.5-2.2) mmol/L Calcium (8.5-10.3) mg/dL Phosphorus (2.5-4.6) mg/dL Magnesium (1.7-2.8) mg/dL Total Bilirubin (0.2-1.0) mg/dL AST (10-42) IU/L ALT (10-60) IU/L Alkaline Phosphatase (42-121) IU/L Troponin I High Sens 13.4 (2.3-19.7) ng/L Total Protein (6.7-8.2) g/dL Albumin (3.2-5.5) g/dL Globulin (2.1-4.2) g/dL Albumin/Globulin Ratio (1.0-2.2) Lipase (22-51) U/L Nasal Adenovirus (PCR) NOT DETECTED Nasal B. parapertussis DNA (PCR) NOT DETECTED Nasal Coronavir 229E PCR NOT DETECTED Nasal Coronavir HKU1 PCR NOT DETECTED Nasal Coronavir NL63 PCR NOT DETECTED Nasal Coronavir OC43 PCR NOT DETECTED Nasal Enterovir/Rhinovir PCR NOT DETECTED Nasal Influenza B PCR NOT DETECTED Nasal Influenza A PCR NOT DETECTED Nasal Parainfluen 1 PCR NOT DETECTED Nasal Parainfluen 2 PCR NOT DETECTED Nasal Parainfluen 3 PCR NOT DETECTED Nasal Parainfluen 4 PCR NOT DETECTED Nasal RSV (PCR) NOT DETECTED Nasal Screen MRSA (PCR) (NEGATIVE) Nasal B.pertussis DNA PCR NOT DETECTED Nasal C.pneumoniae (PCR) NOT DETECTED Rashaad Human Metapneumo PCR NOT DETECTED Nasal M.pneumoniae (PCR) NOT DETECTED Nasal SARS-CoV-2 (PCR) NOT DETECTED 04/15/20 04/15/20 Range/Units 18:40 18:40 WBC 11.4 H (4.8-10.8) x10^3/uL RBC 5.19 (4.70-6.10) 10^6/uL Hgb 16.7 (14.0-18.0) g/dL Hct 48.3 (42.0-52.0) % MCV 93.1 (80.0-94.0) fL MCH 32.2 H (27.0-31.0) pg MCHC 34.6 (32.0-36.0) g/dL RDW 12.4 (12.0-15.0) % Plt Count 121 L (130-450) 10^3/uL MPV 10.5 (7.4-11.4) fL Neut # (Auto) 10.5 H (1.5-6.6) 10^3/uL Lymph # (Auto) 0.4 L (1.5-3.5) 10^3/uL [place] # (Auto) 0.4 (0.0-1.0) 10^3/uL Eos # (Auto) 0.0 (0.0-0.7) 10^3/uL Baso # (Auto) 0.0 (0.0-0.1) 10^3/uL Absolute Nucleated RBC 0.00 x10^3/uL Nucleated RBC % 0.0 /100WBC Bld Gas Analysis Time Sample Site ABG pH (7.35-7.45) ABG pCO2 (34-45) mmHg ABG pO2 (80-100) mmHg ABG HCO3 (22.0-26.0) mmol/L ABG Total CO2 (21.0-29.0) MMOL/L ABG O2 Saturation (94-98) % ABG Base Excess (-2.0-3.0) mmol/L Nick Test VBG pH (7.31-7.41) Ionized Calcium (1.15-1.33) mmol/L Respiration Rate b/min O2 Delivery Device Vent Mode FiO2 Tidal Volume mL PEEP cmH2O Sodium 132 L (135-145) mmol/L Potassium 4.1 (3.5-5.0) mmol/L Chloride 93 L (101-111) mmol/L Carbon Dioxide 22 (21-32) mmol/L Anion Gap 17.0 H (6-13) BUN 14 (6-20) mg/dL Creatinine 0.9 (0.6-1.2) mg/dL Estimated GFR (MDRD) 81 L (>89) Glucose 205 H (70-100) mg/dL Lactic Acid (0.5-2.2) mmol/L Calcium 8.6 (8.5-10.3) mg/dL Phosphorus (2.5-4.6) mg/dL Magnesium (1.7-2.8) mg/dL Total Bilirubin 1.5 H (0.2-1.0) mg/dL AST 24 (10-42) IU/L ALT 16 (10-60) IU/L Alkaline Phosphatase 63 (42-121) IU/L Troponin I High Sens (2.3-19.7) ng/L Total Protein 7.0 (6.7-8.2) g/dL Albumin 4.1 (3.2-5.5) g/dL Globulin 2.9 (2.1-4.2) g/dL Albumin/Globulin Ratio 1.4 (1.0-2.2) Lipase 13 L (22-51) U/L Nasal Adenovirus (PCR) Nasal B. parapertussis DNA (PCR) Nasal Coronavir 229E PCR Nasal Coronavir HKU1 PCR Nasal Coronavir NL63 PCR Nasal Coronavir OC43 PCR Nasal Enterovir/Rhinovir PCR Nasal Influenza B PCR Nasal Influenza A PCR Nasal Parainfluen 1 PCR Nasal Parainfluen 2 PCR Nasal Parainfluen 3 PCR Nasal Parainfluen 4 PCR Nasal RSV (PCR) Nasal Screen MRSA (PCR) (NEGATIVE) Nasal B.pertussis DNA PCR Nasal C.pneumoniae (PCR) Rashaad Human Metapneumo PCR Nasal M.pneumoniae (PCR) Nasal SARS-CoV-2 (PCR) Sepsis Event Note (H) - Evaluation Current Stage of Sepsis: Sepsis Possible source of Sepsis: positive: GI tract/intra-abdominal Confirmed Source and Organism (if known) of Sepsis: ischemic bowel 2/2 incarcerated internal hernia/volvulus - Sepsis Criteria Sepsis Criteria: WBC count greater than 12,000 or less than 4000, Metabolic: lactate > 2 mmol/L Assessment/Plan - Problem List (1) Obstruction concurrent with and due to internal hernia of abdomen Impression: Taken to OR with Dr. Williamson overnight, 54" of ileum found to be ischemic and necrotic and removed, left in discontinuity and with open abdomen. Surgical wound vac dressing currently in place. Awaiting take back to OR for second look. Plan: -Defer to Dr. Williamson for surgical management and when to return to OR. (2) Sepsis Impression: POD 1 ex lap with lysis of adhesions, partial omentectomy, small bowel resection with discontinuity, abdomen washout, wide drainage, open abdomen, RIJ triple lumen catheter, R femoral arterial line, open appendectomy with Dr. Williamson WBC on admission of 11.4, elevated to 18 this morning post op. Also with elevated lactic acid. Source is likely the necrotic bowel. Currently receiving Zosyn. Low grade temp this afternoon and heart rate with normal rate and rhythm, however BP running on the low side. Urine is [place] with output 20-25mL/hr per nursing, creatinine and BUN appropriate. Will be returning to the OR with Dr. Williamson for further exploration 24-48 hours post op. Plan: -Continue Pip/Tazo -Continue IV fluids for hydration -Close monitoring of WBC and signs of worsening clinical picture Qualifiers: Sepsis type: sepsis due to unspecified organism Sepsis acute organ dysfunction status: without acute organ dysfunction Qualified Code(s): A41.9 - Sepsis, unspecified organism (3) Respiratory failure Impression: Requiring intubation and mechanical ventilation while with open abdomen. No plans for extubation until surgical management is optimized. With history of COPD and right upper lobe resection due to lung cancer, will need to monitor and ensure appropriate vent settings and I:E ratios. Pt is followed by Respiratory Therapy. Mild metabolic acidosis, vent settings adjusted as needed. Plan: -Assist Control settings, avoid higher tidal volumes -Monitor ABG and clinical course, adjust settings as needed -Will need to remain intubated while he has an open abdomen and until surgical plans are finalized Qualifiers: Chronicity: acute Respiratory failure complication: hypoxia Qualified Code(s): J96.01 - Acute respiratory failure with hypoxia (4) Lactic acidosis Impression: 3.8 on admission, elevated to 4.5 on morning labs. IV fluids currently running, continue antibiotics. Plan: -Continue IVF -Continue antibiotics (5) Electrolyte abnormality Impression: Initially with hyponatremia and hyperkalemia on admission. Hyponatremia very slightly improved from 129-130, hyperkalemia has resolved. Currently with hyperglycemia to the 200s, receiving insulin (Novolog) Q6H. Plan: -Continue to monitor electrolytes, replace as needed. -Consider insulin for hyperglycemia. (6) History of coronary artery disease Impression: Takes a beta raymundo at home for this, holding off for now given low/soft BPs and regular HR and rhythm. Will continue to monitor. Plan: -Continue to monitor VS. Hold beta raymundo for now. (7) History of lung cancer Impression: S/p Right upper lobe resection. Will need to take this into account with vent management/settings. Plan: Continue current settings. Monitor ABG and clinical picture, adjust as needed. (8) History of COPD Impression: Appears to be well controlled on bronchodilator outpatient. Will need to consider in I:E ratio with vent management. Plan: -Continue bronchodilator -Continue to monitor vent settings and adjust as needed
[2020-04-16] MEDS ORDERED: SODIUM CHLORIDE 0.9% 500 ML IV ONE ×2 (15:04→15:17)
--- NOTE | 2020-04-16 15:27 | PROVIDER PROGRESS NOTE ---
Progress Note Subjective 80-year-old male who presents with multiple comorbid states including CAD, SC, status post multiple cardiac stents, morbid obesity who was evaluated in the emergency room for nearly 12 hours of abdominal pain and CT findings notable for internal herniation; patient taken emergently for below listed procedure and noted for 54 inches of necrotic ileum for which damage control laparotomy was undertaken with resection, discontinuity, and open abdominal dressing. Patient was placed for multiple lines and is remained intubated in the ICU. Procedure Performed: 1. Exploratory laparotomy 2. Lysis of adhesions 3. Partial omentectomy 4. Small bowel resection with discontinuity 5. Abdominal washout 6. Wide drainage 7. Open abdomen 8. Right internal jugular triple-lumen catheter 9. Right femoral arterial line 10. Open appendectomy In the interim patient has been maintained on Daniel-Synephrine. Patient has normalized for heart rate. Continues to have lactic acidosis however this has not significantly worsened. He is remained sedated, paralyzed, no other acute events overnight. Patient spouse was made aware of operative findings and of plan going forward. Objective Afebrile hemodynamically acceptable General Appearance: positive: No acute distress Eyes Bilateral: positive: Normal inspection ENT: positive: ENT inspection nml Neck: positive: Nml inspection, Right IJ TLC in place, endotracheal tube in place Respiratory: positive: Chest non-tender, No respiratory distress, Breath sounds nml. negative: Wheezes, Rales, Rhonchi Cardiovascular: positive: Regular rate & rhythm Abdomen: positive: No distention, Other. negative: Guarding, Rebound; patient with midline wound dressing/open abdomen intact with wound VAC ABThera setting. Bilateral Martin drains with serosanguineous effluent to self suction. Extremities: positive: Right femoral arterial line with appropriate waveform, pedal pulses intact with good capillary refill, Nml appearance Impression/Plan Postoperative day #1 status above listed procedures for ischemic bowel in multiply comorbid obese patient. Remains in ICU intubated, sedated, paralyzed, with open abdomen, on pressors, however these have been weaned and patient appears improved. Plan is for reexploration in a.m. to consider hindu of bowel continuity and possible abdominal closure. Plan is as follows (1) GI - IVF, Strict n.p.o., Nutrition consult for TPN. GI ppx. (2) SURGERY - Plan operative reexploration tomorrow with second look laparotomy in the setting of damage control surgery; consider hindu of bowel continuity. We will consider abdominal closure. Continue wound VAC in ABThera setting for now. Continue drains to self suction, Martin (3) Renal/Lytes - continue IVF. Renal indices within normal limits. Continue robles catheter. Maintenance fluids pending TPN. ICU electrolyte repletion protocol. (4) Respiratory - O2 as necessary. Continue ventilatory mgmt; appreciate hospitalist service. Continue nebulizers. (5) Heme - Will continue with DVT ppx. H/H stable. (6) Cardiovascular - HD acceptable. Wean presser/daniel as tolerated; being physiologic vasopressin to that end. Fluid resuscitate. Troponin negative. (7) Neuro - continue propofol for sedation, fentanyl for pain mgmt, paralytics. (8) Immune/Infectious Disease - trend lactate, continue Zosyn, leukocytosis resolved at this time. Continue ICU level of care. 60 min spent in ICU care management.
[2020-04-16 15:42] LABS: BASOPHILS % (AUTO) 0.2 %; EOSINOPHILS # (AUTO) 0.2 10^3/uL (0.0-0.7); EOSINOPHILS % (AUTO) 1.8 %; HGB - HEMOGLOBIN 13.3 g/dL (14.0-18.0); LYMPHOCYTES # (AUTO) 1.2 10^3/uL (1.5-3.5); LYMPHOCYTES % (AUTO) 10.6 %; MEAN CORPUSCULAR HEMOGLOBIN 33.4 pg (27.0-31.0); MEAN CORPUSCULAR HGB CONC 35.8 g/dL (32.0-36.0); MEAN CORPUSCULAR VOLUME 93.5 fL (80.0-94.0); MEAN PLATELET VOLUME 10.2 fL (7.4-11.4); MONOCYTES % (AUTO) 9.4 %; NEUTROPHILS # (AUTO) 8.4 10^3/uL (1.5-6.6); NEUTROPHILS % (AUTO) 77.7 %; PLT - PLATELET COUNT 149 10^3/uL (130-450); RED BLOOD COUNT 3.98 10^6/uL (4.70-6.10); RED CELL DISTRIBUTION WIDTH 13.1 % (12.0-15.0); WHITE BLOOD COUNT 10.8 x10^3/uL (4.8-10.8)
[2020-04-16] MEDS: VASOPRESSIN 20 UNIT in DEXTROSE 5% 99 ML IV SCH ×2 (15:54→22:17)
[2020-04-16 15:56] LABS: ALBUMIN 2.9 g/dL (3.2-5.5); ALBUMIN/GLOBULIN RATIO 1.4 (1.0-2.2); BILIRUBIN,TOTAL 0.9 mg/dL (0.2-1.0); CALCIUM 7.5 mg/dL (8.5-10.3); MAGNESIUM 2.1 mg/dL (1.7-2.8); PHOSPHORUS 2.1 mg/dL (2.5-4.6)
[2020-04-16] MEDS ORDERED: ALBUMIN 25% 12.5 GM/50 ML VIAL IV ONE (16:00)
[2020-04-16] MEDS: DEXTROSE 5%-0.45% NACL 1,000 ML IV SCH (16:05)
[2020-04-16] MEDS ORDERED: ALBUMIN 25% 12.5 GM/50 ML VIAL IV STA (19:53)
[2020-04-17] MEDS: PROPOFOL 500 MG/50 ML 500 MG/50 ML VIAL IV SCH ×3 (00:19→07:36)
[2020-04-17] MEDS: DEXTROSE 5%-0.45% NACL 1,000 ML IV SCH ×3 (00:22→15:21)
[2020-04-17] MEDS: SODIUM CHLORIDE FLUSH 0.9% 10 ML SYRINGE IVP SCH ×3 (00:49→17:34)
[2020-04-17] MEDS: PHENYLEPHRINE 20 MG in SODIUM CHLORIDE 0.9% 248 ML IV SCH ×4 (00:50→21:05)
[2020-04-17] MEDS: PIPERACILLIN/TAZOBACTAM 3.375 GM in SODIUM CHLORIDE 0.9% MINIBAG 100 ML IV SCH ×4 (02:58→18:36)
[2020-04-17 05:09] LABS: BASOPHILS % (AUTO) 0.2 %; EOSINOPHILS % (AUTO) 0.1 %; HGB - HEMOGLOBIN 10.8 g/dL (14.0-18.0); LYMPHOCYTES # (AUTO) 0.6 10^3/uL (1.5-3.5); LYMPHOCYTES % (AUTO) 7.3 %; MEAN CORPUSCULAR HEMOGLOBIN 32.2 pg (27.0-31.0); MEAN CORPUSCULAR HGB CONC 33.6 g/dL (32.0-36.0); MEAN CORPUSCULAR VOLUME 95.8 fL (80.0-94.0); MEAN PLATELET VOLUME 10.6 fL (7.4-11.4); MONOCYTES # (AUTO) 0.6 10^3/uL (0.0-1.0); MONOCYTES % (AUTO) 7.1 %; NEUTROPHILS # (AUTO) 6.9 10^3/uL (1.5-6.6); NEUTROPHILS % (AUTO) 84.9 %; PLT - PLATELET COUNT 89 10^3/uL (130-450); RED BLOOD COUNT 3.35 10^6/uL (4.70-6.10); RED CELL DISTRIBUTION WIDTH 13.4 % (12.0-15.0); WHITE BLOOD COUNT 8.1 x10^3/uL (4.8-10.8)
[2020-04-17 05:19] LABS: ABG BASE EXCESS -3.4 mmol/L (-2.0-3.0); ABG HCO3 19.6 mmol/L (22.0-26.0); ABG PCO2 29 mmHg (34-45); ABG PH 7.45 (7.35-7.45); ABG PO2 100 mmHg (80-100); ABG TCO2 20.5 MMOL/L (21.0-29.0)
[2020-04-17 05:20] LABS: ABG OXYGEN SATURATION 98 % (94-98)
[2020-04-17 05:26] LABS: ALBUMIN/GLOBULIN RATIO 1.6 (1.0-2.2); BILIRUBIN,TOTAL 1.2 mg/dL (0.2-1.0); CALCIUM 7.3 mg/dL (8.5-10.3); CREATININE 0.9 mg/dL (0.6-1.2); MAGNESIUM 2.1 mg/dL (1.7-2.8); PHOSPHORUS 2.7 mg/dL (2.5-4.6); TOTAL PROTEIN 4.9 g/dL (6.7-8.2)
[2020-04-17] MEDS ORDERED: CALCIUM GLUCONATE 1,000 MG in SODIUM CHLORIDE 0.9% 50 ML IV ONE ×2 (05:50→23:31)
[2020-04-17] MEDS: ACETAMINOPHEN 1,000 MG/100 ML 100 ML IV SCH ×3 (06:14→17:47)
[2020-04-17] MEDS: PANTOPRAZOLE 40 MG VIAL IVP SCH (06:17)
[2020-04-17] MEDS: INSULIN ASPART 300 UNIT/3 ML PEN SUBQ SCH ×3 (06:17→18:02)
--- NOTE | 2020-04-17 07:35 | ANESTHESIA ---
Pre-Anesthesia VS, & Labs - Diagnosis s/p ischemic bowel, open abdominal wound - Procedure abdominal wound closure, anastomosis Vital Signs: Temp Pulse Resp BP Pulse Ox 36.9 C 64 14 102/66 97 04/17/20 04:00 04/17/20 07:00 04/17/20 07:00 04/17/20 07:00 04/17/20 07:00 Height: 6 ft Weight (kg): 129 kg Body Mass Index: 38.5 BMI Classification: Obese - NPO >8 hours - Lab Results Current Lab Results: Laboratory Tests 04/17/20 05:10: Bld Gas Analysis Time 0515, Sample Site A-LINE, ABG pH 7.45, ABG pCO2 29 L, ABG pO2 100, ABG HCO3 19.6 L, ABG Total CO2 20.5 L, ABG O2 Saturation 98, ABG Base Excess -3.4 L, Nick Test NOT APPLICABLE, Respiration Rate 16, O2 Delivery Device VENTILATOR, Vent Mode ASSIST/CONTROL, FiO2 30.00, Tidal Volume 600, PEEP 5 04/17/20 04:50: Sodium 130 L, Potassium 4.1, Chloride 102, Carbon Dioxide 20 L, Anion Gap 8.0, BUN 24 H, Creatinine 0.9, Estimated GFR (MDRD) 81 L, Glucose 207 H, Calcium 7.3 L, Phosphorus 2.7, Magnesium 2.1, Total Bilirubin 1.2 H, AST 31, ALT 17, Alkaline Phosphatase 34 L, Total Protein 4.9 L, Albumin 3.0 L, Globulin 1.9 L, Albumin/Globulin Ratio 1.6 04/17/20 04:50: WBC 8.1, RBC 3.35 L, Hgb 10.8 L, Hct 32.1 L, MCV 95.8 H, MCH 32.2 H, MCHC 33.6, RDW 13.4, Plt Count 89 L, MPV 10.6, Neut # (Auto) 6.9 H, Lymph # (Auto) 0.6 L, Irion # (Auto) 0.6, Eos # (Auto) 0.0, Baso # (Auto) 0.0, A bsolute Nucleated RBC 0.00, Nucleated RBC % 0.0 04/16/20 15:36: Lactic Acid 2.2 04/16/20 15:36: Sodium 131 L, Potassium 3.8, Chloride 100 L, Carbon Dioxide 21, Anion Gap 10.0, BUN 22 H, Creatinine 1.0, Estimated GFR (MDRD) 72 L, Glucose 168 H, Calcium 7.5 L, Phosphorus 2.1 L, Magnesium 2.1, Total Bilirubin 0.9, AST 19, ALT 15, Alkaline Phosphatase 35 L, Total Protein 5.0 L, Albumin 2.9 L, Globulin 2.1, Albumin/Globulin Ratio 1.4 04/16/20 15:36: WBC 10.8, RBC 3.98 L, Hgb 13.3 L, Hct 37.2 L, MCV 93.5, MCH 33.4 H, MCHC 35.8, RDW 13.1, Plt Count 149, MPV 10.2, Neut # (Auto) 8.4 H, Lymph # (Auto) 1.2 L, Irion # (Auto) 1.0, Eos # (Auto) 0.2, Baso # (Auto) 0.0, Absolute Nucleated RBC 0.00, Nucleated RBC % 0.0 04/16/20 13:12: Magnesium 2.3 04/16/20 06:15: VBG pH 7.388, Ionized Calcium 0.99 L 04/16/20 05:20: Phosphorus 1.9 L, Magnesium 1.3 L 04/16/20 05:20: Lactic Acid 4.5 H* 04/16/20 05:20: Sodium 130 L, Potassium 4.6, Chloride 97 L, Carbon Dioxide 21, Anion Gap 12.0, BUN 18, Creatinine 1.0, Estimated GFR (MDRD) 72 L, Glucose 237 H , Calcium 7.6 L, Total Bilirubin 1.0, AST 21, ALT 15, Alkaline Phosphatase 43, Total Protein 5.6 L, Albumin 3.3, Globulin 2.3, Albumin/Globulin Ratio 1.4 04/16/20 05:20: WBC 18.8 H, RBC 4.47 L, Hgb 14.6, Hct 41.9 L, MCV 93.7, MCH 32.7 H, MCHC 34.8, RDW 12.8, Plt Count 159, MPV 10.0, Neut # (Auto) 16.7 H, Lymph # (Auto) 1.0 L, Irion # (Auto) 1.0, Eos # (Auto) 0.0, Baso # (Auto) 0.0, Absolute Nucleated RBC 0.00, Nucleated RBC % 0.0 04/16/20 03:27: Bld Gas Analysis Time 0340, Sample Site A-LINE, ABG pH 7.42, ABG pCO2 30 L, ABG pO2 187 H*, ABG HCO3 18.8 L, ABG Total CO2 19.7 L, ABG O2 Saturation 100 H, ABG Base Excess -4.2 L, Nick Test NOT APPLICABLE, Respiration Rate 20, O2 Delivery Device VENTILATOR, Vent Mode SIMV, FiO2 75.00, Tidal Volume 600, PEEP 5 04/16/20 02:25: WBC 11.7 H, RBC 4.76, Hgb 15.6, Hct 44.6, MCV 93.7, MCH 32.8 H, MCHC 35.0, RDW 12.7, Plt Count 127 L, MPV 10.2, Neut # (Auto) 10.4 H, Lymph # (Auto) 0.5 L, Irion # (Auto) 0.7, Eos # (Auto) 0.0, Baso # (Auto) 0.0, Absolute Nucleated RBC 0.00, Nucleated RBC % 0.0 04/16/20 02:25: Sodium 129 L, Potassium 5.3 H, Chloride 97 L, Carbon Dioxide 21, Anion Gap 11.0, BUN 16, Creatinine 0.9, Estimated GFR (MDRD) 81 L, Glucose 214 H , Calcium 7.6 L, Phosphorus 3.4, Magnesium 1.2 L, Total Bilirubin 1.1 H, AST 20, ALT 15, Alkaline Phosphatase 47, Total Protein 5.7 L, Albumin 3.3, Globulin 2.4, Albumin/Globulin Ratio 1.4 04/16/20 02:25: Troponin I High Sens 13.4 04/15/20 19:41: Lactic Acid 3.8 H* 04/15/20 18:40: Sodium 132 L, Potassium 4.1, Chloride 93 L, Carbon Dioxide 22, Anion Gap 17.0 H, BUN 14, Creatinine 0.9, Estimated GFR (MDRD) 81 L, Glucose 205 H, Calcium 8.6, Total Bilirubin 1.5 H, AST 24, ALT 16, Alkaline Phosphatase 63, Total Protein 7.0, Albumin 4.1, Globulin 2.9, Albumin/Globulin Ratio 1.4, Lipase 13 L 04/15/20 18:40: WBC 11.4 H, RBC 5.19, Hgb 16.7, Hct 48.3, MCV 93.1, MCH 32.2 H, MCHC 34.6, RDW 12.4, Plt Count 121 L, MPV 10.5, Neut # (Auto) 10.5 H, Lymph # (Auto) 0.4 L, Irion # (Auto) 0.4, Eos # (Auto) 0.0, Baso # (Auto) 0.0, Absolute Nucleated RBC 0.00, Nucleated RBC % 0.0 Fish Bones: 04/17/20 04:50 04/17/20 04:50 Home Medications and Allergies Home Medications: Ambulatory Orders Albuterol Sulfate [Proair Hfa Inhaler] 90 mcg INH PRN PRN 04/15/20 Alpha Lipoic Acid 600 mg PO DAILY 04/15/20 Clobetasol 0.05% Oint [Temovate 0.05% Oint] 10 mg TOP DAILY 04/15/20 Gabapentin [Neurontin] 300 mg PO BID 04/15/20 Hydrocortisone/Pramoxine [Hydrocort-Pramoxine 2.5-1% Crm] 10 mg TOP DAILY 04/15/20 Ipratropium [Atrovent] 42 mcg INH HS 04/15/20 LORazepam [Ativan] 0.5 mg PO PRN PRN 04/15/20 Mupirocin Calcium [Mupirocin] 15 mg TOP DAILY 04/15/20 Nitroglycerin [Nitrostat] 1 tab SL DAILY 04/15/20 Oxybutynin [Ditropan] 10 mg PO DAILY 04/15/20 Tamsulosin [Flomax] 0.4 mg PO DAILY 04/15/20 Triamcinolone 0.1% Oint [Kenalog 0.1% Oint] 1 mg TOP DAILY 04/15/20 metroNIDAZOLE 0.75% GEL 2 gm TOP DAILY 04/15/20 Active Medications Albuterol (Albuterol Neb 2.5 Mg/3 Ml) 2.5 mg INH Q4HR PRN PRN Reason: Wheezing Chlorhexidine Gluconate (Chlorhexidine Gluconate 15 Ml Udc) 15 ml PO BID [facility] Last Admin: 04/16/20 20:43 Dose: 15 ml Documented by: Heparin Sodium (Porcine) (Heparin 5,000 Unit/Ml Vial) 5,000 unit SUBQ BID [facility] Last Admin: 04/16/20 20:52 Dose: 5,000 unit Documented by: Acetaminophen (Ofirmev) 100 mls @ 400 mls/hr IV Q6HR [facility] Last Infusion: 04/17/20 06:52 Dose: Infused Documented by: Piperacillin Sod/Tazobactam (Sod 3.375 gm/ Sodium Chloride) 100 mls @ 200 mls/hr IV Q6H [facility] Last Infusion: 04/17/20 03:30 Dose: Infused Documented by: Rocuronium [place] 500 mg/ (Sodium Chloride) 100 mls @ 8.818 mls/hr IV .[id number] [facility] Last Infusion: 04/16/20 20:27 Dose: 4.5 mcg/kg/min, 6.613 mls/hr Documented by: Propofol (Diprivan) 500 mg in 50 mls @ 7.348 mls/hr IV .Q6H49M [facility]; Protocol Last Admin: 04/17/20 05:09 Dose: 20 mcg/kg/min, 14.696 mls/hr Documented by: Phenylephrine HCl 20 mg/ (Sodium Chloride) 250 mls @ 75 mls/hr IV .Q3H20M [facility]; Protocol Last Admin: 04/17/20 04:26 Dose: Not Given Documented by: Fentanyl (Fentanyl) 2,500 mcg in 250 mls @ 25.2 mls/hr IV .Q9H56M [facility]; Protocol Last Admin: 04/16/20 21:22 Dose: 2 mcg/kg/hr, 25.2 mls/hr Documented by: Vasopressin 20 unit/ Dextrose 100 mls @ 6 mls/hr IV .[id number] [facility] Last Titration: 04/16/20 22:37 Dose: 0.02 unit/min, 6 mls/hr Documented by: Dextrose/Sodium Chloride (D5.45ns) 1,000 mls @ 125 mls/hr IV .Q8H [facility] Last Admin: 04/17/20 00:22 Dose: 125 mls/hr Documented by: Insulin Aspart (Insulin Aspart 300 Unit/3 Ml Pen) 1 - 5 unit SUBQ Q6H [facility]; Protocol Last Admin: 04/17/20 06:17 Dose: 2 unit Documented by: Ipratropium [place] (Ipratropium 0.2 Mg/Ml Neb) 0.5 mg INH Q6HR PRN PRN Reason: Wheezing Pantoprazole Sodium (Pantoprazole 40 Mg Vial) 40 mg IVP QDAC [facility] Last Admin: 04/17/20 06:17 Dose: 40 mg Documented by: Sodium Chloride (Sodium Chloride Flush 0.9% 10 Ml Syringe) 10 ml IVP 0100,09 00,1700 [facility] Last Admin: 04/17/20 00:49 Dose: Not Given Documented by: Sodium Chloride (Sodium Chloride Flush 0.9% 10 Ml Syringe) 10 ml IVP PRN PRN PRN Reason: NEEDED PER PROVIDER ORDERS Aspirin 81 mg PO DAILY 01/26/17 Atorvastatin [Lipitor] 80 mg PO DAILY 01/26/17 Metoprolol Tartrate 25 mg PO DAILY 01/26/17 Sertraline [Zoloft] 100 mg PO DAILY 01/26/17 Albuterol Sulfate [Proair Hfa Inhaler] 90 mcg INH PRN PRN 04/15/20 Alpha Lipoic Acid 600 mg PO DAILY 04/15/20 Clobetasol 0.05% Oint [Temovate 0.05% Oint] 10 mg TOP DAILY 04/15/20 Gabapentin [Neurontin] 300 mg PO BID 04/15/20 Hydrocortisone/Pramoxine [Hydrocort-Pramoxine 2.5-1% Crm] 10 mg TOP DAILY 04/15/20 Ipratropium [Atrovent] 42 mcg INH HS 04/15/20 LORazepam [Ativan] 0.5 mg PO PRN PRN 04/15/20 Mupirocin Calcium [Mupirocin] 15 mg TOP DAILY 04/15/20 Nitroglycerin [Nitrostat] 1 tab SL DAILY 04/15/20 Oxybutynin [Ditropan] 10 mg PO DAILY 04/15/20 Tamsulosin [Flomax] 0.4 mg PO DAILY 04/15/20 Triamcinolone 0.1% Oint [Kenalog 0.1% Oint] 1 mg TOP DAILY 04/15/20 metroNIDAZOLE 0.75% GEL 2 gm TOP DAILY 04/15/20 Allergies/Adverse Reactions: Allergies Allergy/AdvReac Type Severity Reaction Status Date / Time No Known Drug Allergies Allergy Verified 04/15/20 18:22 Anes History & Medical History - Anesthetic History Anesthesia Complications: reports: No previous complications - Medical History Cardiovascular: reports: High cholesterol, PR Pulmonary: reports: Sleep apnea, CPAP use, Other (Intubated) Gastrointestinal: reports: None Urinary: reports: None Neuro: reports: None, Other (On propofol drip for sedation) Musculoskeletal: reports: Osteoarthritis Endocrine/Autoimmune: reports: None Blood Disorders: reports: None Skin: reports: Psoriasis Smoking Status: Never smoker Psychosocial: reports: No issues indicated History of Cancer?: No - Surgical History General: Colonoscopy Cardiothoracic: Coronary stent, Lobectomy Orthopedic: Knee replacement Exam General: Other (Sedated on vent) Dental: WNL Respiratory: Other (vent) Mental/Cognitive Status: Other (sedated) Plan Anesthesia Type: General Consent for Procedure(s) Verified and Reviewed: Yes Code Status: Attempt Resuscitation ASA classification: 4-Incapacitating disease Is this case an emergency?: Yes
[2020-04-17] MEDS ORDERED: ROCURONIUM 50 MG/5 ML VIAL ONE (07:45)
[2020-04-17] MEDS ORDERED: PHENYLEPHRINE 10 MG/ML VIAL ONE (07:50)
[2020-04-17] MEDS: fentaNYL 2,500 MCG/250 ML 2,500 MCG/250 ML BAG IV SCH ×2 (07:58→18:30)
[2020-04-17] MEDS ORDERED: MIDAZOLAM 2 MG/2 ML VIAL ONE (08:07)
[2020-04-17] MEDS: HEPARIN 5,000 UNIT/ML VIAL SUBQ SCH ×2 (08:23→21:04)
--- NOTE | 2020-04-17 08:25 | PROVIDER PROGRESS NOTE ---
Progress Note 80-year-old male who presents with multiple comorbid states including CAD, AK, status post multiple cardiac stents, morbid obesity who was evaluated in the emergency room for nearly 12 hours of abdominal pain and CT findings notable for internal herniation; patient taken emergently for below listed procedure and noted for 54 inches of necrotic ileum for which damage control laparotomy was undertaken with resection, discontinuity, and open abdominal dressing. Patient was placed for multiple lines and is remained intubated in the ICU. Procedure Performed: 1. Exploratory laparotomy 2. Lysis of adhesions 3. Partial omentectomy 4. Small bowel resection with discontinuity 5. Abdominal washout 6. Wide drainage 7. Open abdomen 8. Right internal jugular triple-lumen catheter 9. Right femoral arterial line 10. Open appendectomy In the interim patient has been weaned significantly off Daniel-Synephrine. Vasopressin startedPatient has normalized for heart rate. Continues to have lactic acidosis however this has not significantly worsened. He is remained sedated, paralyzed, no other acute events overnight. Patient spouse and daughter were made aware of clinical course and of plan going forward. Operative plan going forward is as follows: 1. Reoperative exploration/laparotomy 2. Possible small bowel resection 3. Tenriism of continuity with bowel anastomosis/enteroenterostomy 4. Possible closure if not partial 5. Large ventral hernia repair 6. Wide local drainage 7. Wound VAC placement This was explained to both the spouse and daughter and we will call with updates. Please note that voice recognition software was used to transcribe this note and inadvertent errors might persist in spite of review and editing. I am obliged to you for your attention. I am thankful to you for allowing me to participate with you in this care of this patient.
[2020-04-17] MEDS ORDERED: fentaNYL 100 MCG/2 ML VIAL ONE (08:56)
[2020-04-17] MEDS ORDERED: LIDOCAINE-MPF 2% 5 ML VIAL ONE ×2 (09:13→09:14)
--- NOTE | 2020-04-17 10:25 | OPERATIVE REPORT ---
Operative Report - General Admit Date: 04/16/20 Procedure Date: 04/17/20 Planned Procedure: 1. Second look laparotomy/reexploration 2. Possible small bowel resection 3. Possible anastomosis 4. Possible open abdomen 5. Wide local drainage 6. Possible ventral hernia repair Pre-Op Diagnosis: Septic shock, small bowel necrosis, obesity, multiple comorbidities Procedure Performed: 1. Second look laparotomy/re-exploration 2. Small bowel resection 3. Small bowel anastomosis 4. Abdominal washout 5. Wide local drainage 6. Closure of mesenteric defect 7. Possible ventral hernia repair Post Op Diagnosis: Same, viable bowel, viable anastomosis, hemodynamic stability - Procedure Note Primary Surgeon: Teri Secondary Surgeon: Nam Anesthesia Provider: Marco Anesthesia Technique: General ET tube Pathology: Proximal small bowel margin Estimated Blood Loss (mL): 50 Indications: 1. Open abdomen status post damage control laparotomy with bowel resection in discontinuity 2. Hemodynamic shock/septic shock necessitating pressors and fluid resuscitation 3. Need for second look/reexploration to assess for any progression of the patient's bowel necrosis/ischemia 4. Improvement of hemodynamic parameters and inflammatory markers suggesting possible indication for closure and [place]lam of continuity Findings: 1. Proximal small bowel from ligament of Treitz through to distal resection margin viable 2 cm to 3 cm proximal margin resected to assure viability 2. Distal ileal margin with no complication; appendectomy staple line intact 3. Widely patent viable intact anastomosis [id number] functional end-to-end antiperistaltic, enterotomy closed in 2 layers with running canal and interrupted Lembert's 4. Large ventral defect closed in bidirectional fashion with loop PDS with no complication. 5. Skin left open secondary to contaminated case Complications: None - Other Other Information/Narrative: See pending report, dictated.
--- NOTE | 2020-04-17 11:01 | PROVIDER PROGRESS NOTE ---
Subjective - Prog Note Date Prog Note Date: 04/17/20 Prog Note Time: 10:59 - Subjective Subjective: intubated and sedated, unable to assess Objective - Vital Signs/Intake & Output Reviewed Vital Signs: Yes Vital Signs: Vital Signs Temp Pulse Pulse Resp BP BP BP 04/17/20 10:40 99 14 04/17/20 10:35 95 14 04/17/20 10:31 91 14 149/73 H 04/17/20 10:30 88 14 04/17/20 10:25 84 21 04/17/20 10:20 91 16 04/17/20 10:19 86 15 04/17/20 10:17 87 11 L 115/72 04/17/20 10:16 85 7 L 115/72 04/17/20 10:07 91/50 L 04/17/20 08:19 61 04/17/20 08:17 61 14 105/65 04/17/20 08:15 64 14 04/17/20 08:10 70 16 04/17/20 08:05 63 14 04/17/20 08:01 57 L 14 105/65 04/17/20 08:00 36.8 C 48 L 53 L 14 117/53 L 120/70 04/17/20 07:55 48 L 14 04/17/20 07:50 53 L 14 04/17/20 07:45 53 L 14 04/17/20 07:40 59 L 14 04/17/20 07:35 55 L 14 04/17/20 07:31 53 L 14 04/17/20 07:30 54 L 14 120/70 04/17/20 07:29 61 14 04/17/20 07:25 60 14 04/17/20 07:20 55 L 14 04/17/20 07:15 65 14 04/17/20 07:10 53 L 14 04/17/20 07:05 50 L 14 04/17/20 07:01 58 L 14 04/17/20 07:00 59 L 64 14 102/66 129/67 102/66 Pulse Ox 04/17/20 10:40 04/17/20 10:35 04/17/20 10:31 04/17/20 10:30 04/17/20 10:25 04/17/20 10:20 04/17/20 10:19 04/17/20 10:17 04/17/20 10:16 04/17/20 10:07 04/17/20 08:19 04/17/20 08:17 04/17/20 08:15 04/17/20 08:10 04/17/20 08:05 04/17/20 08:01 04/17/20 08:00 94 04/17/20 07:55 04/17/20 07:50 04/17/20 07:45 04/17/20 07:40 04/17/20 07:35 04/17/20 07:31 04/17/20 07:30 04/17/20 07:29 04/17/20 07:25 04/17/20 07:20 04/17/20 07:15 04/17/20 07:10 04/17/20 07:05 04/17/20 07:01 04/17/20 07:00 97 Intake & Output: Intake & Output 04/14/20 04/15/20 04/16/20 04/17/20 23:59 23:59 23:59 23:59 Intake Total 1000 5682.355 3012.949 Output Total 1309 639 Balance 1000 4373.355 2373.949 - Objective General Appearance: positive: No acute distress (intubated and sedated, in no apparent distress) Eyes Bilateral: positive: Normal inspection ENT: positive: ENT inspection nml Neck: positive: Nml inspection Respiratory: positive: Breath sounds nml, Other (intubated, breathing synchronously with the vent) Cardiovascular: positive: Regular rate & rhythm. negative: No murmur, No gallop Peripheral Pulses: 2+ Dorsalis pedis (R), 2+ Dorsalis pedis (L) Abdomen: positive: Abnml bowel sounds (hypoactive), Other (post op surgical dressing in place) Skin: positive: Color nml Extremities: positive: Nml appearance Neurologic/Psychiatric: positive: Other (sedated) - Lab Results Fish Bones: 04/17/20 04:50 04/17/20 04:50 Other Labs: Lab Results x24hrs 04/17/20 04/17/20 04/17/20 Range/Units 05:10 04:50 04:50 WBC 8.1 (4.8-10.8) x10^3/uL RBC 3.35 L (4.70-6.10) 10^6/uL Hgb 10.8 L (14.0-18.0) g/dL Hct 32.1 L (42.0-52.0) % MCV 95.8 H (80.0-94.0) fL MCH 32.2 H (27.0-31.0) pg MCHC 33.6 (32.0-36.0) g/dL RDW 13.4 (12.0-15.0) % Plt Count 89 L (130-450) 10^3/uL MPV 10.6 (7.4-11.4) fL Neut # (Auto) 6.9 H (1.5-6.6) 10^3/uL Lymph # (Auto) 0.6 L (1.5-3.5) 10^3/uL [place] # (Auto) 0.6 (0.0-1.0) 10^3/uL Eos # (Auto) 0.0 (0.0-0.7) 10^3/uL Baso # (Auto) 0.0 (0.0-0.1) 10^3/uL Absolute Nucleated RBC 0.00 x10^3/uL Nucleated RBC % 0.0 /100WBC Bld Gas Analysis Time 0515 Sample Site A-LINE ABG pH 7.45 (7.35-7.45) ABG pCO2 29 L (34-45) mmHg ABG pO2 100 (80-100) mmHg ABG HCO3 19.6 L (22.0-26.0) mmol/L ABG Total CO2 20.5 L (21.0-29.0) MMOL/L ABG O2 Saturation 98 (94-98) % ABG Base Excess -3.4 L (-2.0-3.0) mmol/L Nick Test NOT APPLICABLE Respiration Rate 16 b/min O2 Delivery Device VENTILATOR Vent Mode ASSIST/CONTROL FiO2 30.00 Tidal Volume 600 mL PEEP 5 cmH2O Sodium 130 L (135-145) mmol/L Potassium 4.1 (3.5-5.0) mmol/L Chloride 102 (101-111) mmol/L Carbon Dioxide 20 L (21-32) mmol/L Anion Gap 8.0 (6-13) BUN 24 H (6-20) mg/dL Creatinine 0.9 (0.6-1.2) mg/dL Estimated GFR (MDRD) 81 L (>89) Glucose 207 H (70-100) mg/dL Lactic Acid (0.5-2.2) mmol/L Calcium 7.3 L (8.5-10.3) mg/dL Phosphorus 2.7 (2.5-4.6) mg/dL Magnesium 2.1 (1.7-2.8) mg/dL Total Bilirubin 1.2 H (0.2-1.0) mg/dL AST 31 (10-42) IU/L ALT 17 (10-60) IU/L Alkaline Phosphatase 34 L (42-121) IU/L Total Protein 4.9 L (6.7-8.2) g/dL Albumin 3.0 L (3.2-5.5) g/dL Globulin 1.9 L (2.1-4.2) g/dL Albumin/Globulin Ratio 1.6 (1.0-2.2) 04/16/20 04/16/20 04/16/20 Range/Units 15:36 15:36 15:36 WBC 10.8 (4.8-10.8) x10^3/uL RBC 3.98 L (4.70-6.10) 10^6/uL Hgb 13.3 L (14.0-18.0) g/dL Hct 37.2 L (42.0-52.0) % MCV 93.5 (80.0-94.0) fL MCH 33.4 H (27.0-31.0) pg MCHC 35.8 (32.0-36.0) g/dL RDW 13.1 (12.0-15.0) % Plt Count 149 (130-450) 10^3/uL MPV 10.2 (7.4-11.4) fL Neut # (Auto) 8.4 H (1.5-6.6) 10^3/uL Lymph # (Auto) 1.2 L (1.5-3.5) 10^3/uL [place] # (Auto) 1.0 (0.0-1.0) 10^3/uL Eos # (Auto) 0.2 (0.0-0.7) 10^3/uL Baso # (Auto) 0.0 (0.0-0.1) 10^3/uL Absolute Nucleated RBC 0.00 x10^3/uL Nucleated RBC % 0.0 /100WBC Bld Gas Analysis Time Sample Site ABG pH (7.35-7.45) ABG pCO2 (34-45) mmHg ABG pO2 (80-100) mmHg ABG HCO3 (22.0-26.0) mmol/L ABG Total CO2 (21.0-29.0) MMOL/L ABG O2 Saturation (94-98) % ABG Base Excess (-2.0-3.0) mmol/L Nick Test Respiration Rate b/min O2 Delivery Device Vent Mode FiO2 Tidal Volume mL PEEP cmH2O Sodium 131 L (135-145) mmol/L Potassium 3.8 (3.5-5.0) mmol/L Chloride 100 L (101-111) mmol/L Carbon Dioxide 21 (21-32) mmol/L Anion Gap 10.0 (6-13) BUN 22 H (6-20) mg/dL Creatinine 1.0 (0.6-1.2) mg/dL Estimated GFR (MDRD) 72 L (>89) Glucose 168 H (70-100) mg/dL Lactic Acid 2.2 (0.5-2.2) mmol/L Calcium 7.5 L (8.5-10.3) mg/dL Phosphorus 2.1 L (2.5-4.6) mg/dL Magnesium 2.1 (1.7-2.8) mg/dL Total Bilirubin 0.9 (0.2-1.0) mg/dL AST 19 (10-42) IU/L ALT 15 (10-60) IU/L Alkaline Phosphatase 35 L (42-121) IU/L Total Protein 5.0 L (6.7-8.2) g/dL Albumin 2.9 L (3.2-5.5) g/dL Globulin 2.1 (2.1-4.2) g/dL Albumin/Globulin Ratio 1.4 (1.0-2.2) 04/16/20 Range/Units 13:12 WBC (4.8-10.8) x10^3/uL RBC (4.70-6.10) 10^6/uL Hgb (14.0-18.0) g/dL Hct (42.0-52.0) % MCV (80.0-94.0) fL MCH (27.0-31.0) pg MCHC (32.0-36.0) g/dL RDW (12.0-15.0) % Plt Count (130-450) 10^3/uL MPV (7.4-11.4) fL Neut # (Auto) (1.5-6.6) 10^3/uL Lymph # (Auto) (1.5-3.5) 10^3/uL [place] # (Auto) (0.0-1.0) 10^3/uL Eos # (Auto) (0.0-0.7) 10^3/uL Baso # (Auto) (0.0-0.1) 10^3/uL Absolute Nucleated RBC x10^3/uL Nucleated RBC % /100WBC Bld Gas Analysis Time Sample Site ABG pH (7.35-7.45) ABG pCO2 (34-45) mmHg ABG pO2 (80-100) mmHg ABG HCO3 (22.0-26.0) mmol/L ABG Total CO2 (21.0-29.0) MMOL/L ABG O2 Saturation (94-98) % ABG Base Excess (-2.0-3.0) mmol/L Nick Test Respiration Rate b/min O2 Delivery Device Vent Mode FiO2 Tidal Volume mL PEEP cmH2O Sodium (135-145) mmol/L Potassium (3.5-5.0) mmol/L Chloride (101-111) mmol/L Carbon Dioxide (21-32) mmol/L Anion Gap (6-13) BUN (6-20) mg/dL Creatinine (0.6-1.2) mg/dL Estimated GFR (MDRD) (>89) Glucose (70-100) mg/dL Lactic Acid (0.5-2.2) mmol/L Calcium (8.5-10.3) mg/dL Phosphorus (2.5-4.6) mg/dL Magnesium 2.3 (1.7-2.8) mg/dL Total Bilirubin (0.2-1.0) mg/dL AST (10-42) IU/L ALT (10-60) IU/L Alkaline Phosphatase (42-121) IU/L Total Protein (6.7-8.2) g/dL Albumin (3.2-5.5) g/dL Globulin (2.1-4.2) g/dL Albumin/Globulin Ratio (1.0-2.2) Sepsis Event Note (H) - Evaluation Current Stage of Sepsis: Sepsis Possible source of Sepsis: positive: GI tract/intra-abdominal - Sepsis Criteria Sepsis Criteria: WBC count greater than 12,000 or less than 4000, Metabolic: lactate > 2 mmol/L Assessment/Plan - Problem List (1) Obstruction concurrent with and due to internal hernia of abdomen Impression: POD 0 2nd look laparotomy and re-exploration, small bowel resection, small bowel anastamosis, abdominal washout, wide local drainage, closure of mesenteric defect and possible ventral hernia repair with Dr. Williamson and Dr. Browning POD 2 ex lap with lysis of adhesions, partial omentectomy, small bowel resection with discontinuity, abdominal washout, wide drainage, open abdomen, right internal jugular triple lumen central line placement, right femoral arterial line placement, and open appendectomy with Dr. Williamson and Dr. Browning Returned to the OR with Dr. Williamson today for washout and reanastamosis and closure. Post op dressing in place. Plan Surgical plan per Dr. Williamson. (2) Sepsis Impression: Improved, now with decreased pressor use. Appropriate urine output, vitals stable. Plan: Vasopressor use as per Dr. Williamson, wean as able Pip/tazo as per Dr. Williamson Continue to monitor drain output and wound as per Dr. Williamson Qualifiers: Sepsis type: sepsis due to unspecified organism Sepsis acute organ dysfunction status: without acute organ dysfunction Qualified Code(s): A41.9 - Sepsis, unspecified organism (3) Respiratory failure Impression: Has remained intubated since surgical intervention Friday. Will extubate when able, may have difficult wean given COPD and history of right upper lobe resection from lung cancer. Continues to have mild metabolic acidosis, will monitor and may need to adjust vent settings Plan: Extubate when able Qualifiers: Chronicity: acute Respiratory failure complication: hypoxia Qualified Code(s): J96.01 - Acute respiratory failure with hypoxia (4) Lactic acidosis Impression: Resolved. Initially elevated to 4.5 but has come down to 2.2. Plan: Continue to monitor (5) Electrolyte abnormality Impression: Improved. Slightly low calcium and sodium, will continue to monitor. Plan: Continue to monitor. (6) History of coronary artery disease Impression: Home regimen includes a beta raymundo. Has not taken this admission given need for vasopressors. Will resume when appropriate. Plan: Resume home dose beta raymundo when off pressors and clinically stable. (7) History of lung cancer Impression: History of right upper lobe resection. May be difficult to extubate and will need to monitor. Plan: Wean vent and extubate as able. (8) History of COPD Impression: Takes a bronchodilator at home, appears to be well controlled. May be difficult to wean from the vent and will need to closely monitor. Plan: Wean vent settings and extubate when able. Continue bronchodilator (9) At risk for malnutrition Impression: Has been NPO, will need TPN until awake and able to eat and sustain a diet again. Plan: Nutrition consult for TPN (10) Hyperglycemia Impression: Does not have a diagnosis of diabetes. Present since admission, likely related to the ischemic bowel and infection. Starting TPN today, may have further elevated blood glucose with this. Has been receiving Novolog insulin, will continue to use sliding scale and may need to add insulin to tomorrow's TPN. Plan: Continue SSI, monitor blood sugars If no improvement once weaned from TPN, may warrant an A1C check to rule out diabetes
[2020-04-17] MEDS: CHLORHEXIDINE GLUCONATE 15 ML UDC PO SCH ×2 (11:39→21:03)
--- NOTE | 2020-04-17 11:44 | OPERATIVE REPORT ---
DATE OF SERVICE: 04/16/2020 Physician: Pranav Williamson MD Please see MR. PLANNED PROCEDURE: 1. Exploratory laparotomy. 2. Lysis of adhesions. 3. Possible small-bowel resection. 4. Possible open abdomen. 5. Other indicated procedures. PROCEDURE PERFORMED 1. Exploratory laparotomy. 2. Lysis of adhesions. 3. Partial omentectomy. 4. Small-bowel resection with discontinuity. 5. Abdominal washout. 6. Wide local drainage. 7. Open abdomen. 8. Right internal jugular triple lumen catheter dictated under separate cover. 9. Right femoral arterial line dictated under separate cover. 10. Open appendectomy. PREOPERATIVE DIAGNOSES: 1. Morbid obesity. 2. Coronary artery disease, status post multiple cardiac stents. 3. Abdominal pain. 4. Internal herniation. 5. Presumptive bowel ischemia. 6. Localized peritonitis. POSTOPERATIVE DIAGNOSES: 1. Morbid obesity. 2. Coronary artery disease, status post multiple cardiac stents. 3. Abdominal pain. 4. Internal herniation. 5. Presumptive bowel ischemia. 6. Localized peritonitis. 7. Small-bowel necrosis, 54 inches. 8. Multiple abdominal adhesions. 9. Omental rent with associated adhesion and internal herniation. 10. Septic shock. 11. Necessary bowel discontinuity with damage control laparotomy. PRIMARY SURGEON: Pranav Williamson MD. SECONDARY SURGEON: None. ANESTHESIA: Gonzalez. ANESTHESIA PERFORMED: General endotracheal anesthesia. PATHOLOGY: 1. Necrotic ileum, 54 inches 2. Appendix. 3. Partial omentum. ESTIMATED BLOOD LOSS: 300 mL to include sanguineous ascites. DRAINS PLACED: 1. Martin drain x2, 19 Welsh bilateral paracolic gutters. 2. Ioban-covered blue towel, protecting the underlying hollow viscus structures as a nonadherent dressing. 3. Kerlix moistened x2 above the Ioban-covered blue towel. 4. Single black sponge cut to fit atop the moistened Kerlix and connected to wound VAC. 5. NG tube. 6. Gupta catheter. INDICATIONS: Kindly see the electronic medical record. However, in brief, this is an 80-year-old male presenting with 12 hours of abdominal pain. No significant past surgical history other than umbilical hernia repair, open. Patient was noted for lactic acidosis and CT scan concerning for internal herniation. The patient was taken urgently to the operating room and noted for localized peritonitis at bedside examination. INTRAOPERATIVE FINDINGS: 1. Hypotension requiring pressors during early portion of case, making line placement challenging both for venous access as well as arterial hemodynamic monitoring. 2. Procedure with laparotomy, revealing 54 inches of bowel torsed within a rent of omentum and internal herniation. 3. Bowel was necrotic. A portion of ileum, again 54 inches, with no improvement after area was detorsed and monitored during resuscitation. 4. Bowel was left in discontinuity given the hypotension and associated shock. 5. Appendix removed given the dense adhesions associated. 6. Partial omentectomy performed to include the area of renting and internal herniation and defect. 7. Abdomen was hemostatic with no other areas concerning on running the intestine. 8. At the conclusion of this case, performed right femoral arterial catheter placement after appropriate resuscitation for continued monitoring in the setting of ongoing pressor support. COMPLICATIONS: None. OPERATIVE REPORT: The patient was taken to the operating room and placed supine on the operating table. The patient was performed for informed consent. The patient was induced for general endotracheal anesthesia. The patient was left with both arms abducted. At this time, please see under separate cover, a right internal jugular triple lumen catheter was placed successfully with no complication. Arterial line was attempted in the left radial artery unsuccessfully, although a flash was achieved and pulsatile structure appreciated. The wire could not be passed moreover given the patient's body habitus and hypotension. Femoral artery was attempted, but deferred secondary to the ongoing shock and necessary increasing presser requirements and we deferred further arterial line placement until after abdominal procedure per below. The patient was prepped and draped in the usual sterile fashion. A timeout was called and agreed to by all in the room. A planned incision was made from a line extending from subxiphoid to the suprapubic region. This was taken down sharply and through the skin and subcutaneous fat. Ultimately, the fascia was encountered and divided. The abdomen was sharply entered and noted for a large volume of sanguineous ascites. This was aspirated. Immediately, it was appreciated necrotic bowel dilated in the right upper quadrant. An Evgeny wound ring was placed to protect the skin and subcutaneous fat. We aspirated the bloody ascites and thereafter proceeded to continue with a diagnostic laparotomy. There was a palpable area of tethering of the omentum with an associated rent, through which the small bowel appeared to have herniated. This was carefully teased, and ultimately the small bowel was detorsed and noted for a length of 54 inches of significant necrosis that, following detorsion and monitoring, had failed to show any benefit from resuscitation and had shown no associated decrease in venous congestion. A needle prick was performed with no significant bleeding in this length of bowel. There were no other signs of reperfusion, and at this time given the concerns for further complications as it relates to remnant necrotic tissue in situ we opted to proceed with a segmental resection and likely discontinuity with damage control open abdomen for a planned second look. We proceeded to perform a segmental resection as follows. A linear cutting DORY stapler was performed at the distal margin to include viable normal bowel at the terminal ileum. This was performed without any complication proximally within the normal intestine approximately 54 inches upstream from the distal area of demarcation, viable bowel was noted, and after these 2 staple lines were achieved with the Endo-DORY stapler we proceeded to resect congested mesentery using a LigaSure device handheld. This was performed carefully and with hemostasis. Once the specimen was resected, this was sent for permanent pathology. The entirety of the small bowel was again run with no other areas of skip necrosis or ischemia and was apparent viable throughout. The patient remained hypotensive with necessary pressor support at this time, and given his ongoing shock we deferred evangelical of bowel continuity given concerns for anastomotic compromise and other issues as it relates to his ongoing resuscitation. At this time, we aggressively irrigated and aspirated the abdomen clear. We further explored with no other areas of concern for intestinal compromise. We performed appendectomy given the dense adhesions, which had already been performed for adhesiolysis of the right colon towards evaluating the terminal ileum and ileocecal valve. This was performed using the Endo-DORY stapler with portion of the cecum. The mesoappendix was taken with 0 Vicryl suture tie in a clamp, clamp, cut, tie fashion. This was passed for permanent pathology. The omental defect was performed for partial omentectomy with a handheld LigaSure device. This was sent for permanent pathology as well. At this time, the patient remained on pressors, and we aggressively irrigated and aspirated clear. Two Martin drains were placed in the bilateral lower quadrants and to the paracolic gutters, and then thereafter we planned to perform open abdomen with no definitive closure for a planned second look re- exploratory laparotomy. The blue towel was made into an oval and wrapped in Ioban to assure no lint or fibers would be loose as foreign body within the abdomen. This was used as a nonadherent band overlying the hollow viscus in the usual fashion. Thereafter, once the nonadhesive barrier was placed intraabdominally, 2 moistened Kerlix was placed in the skin and subcutaneous tissues and thereafter a sponge was cut to place over the Kerlix and this was covered with Ioban. This was thereafter connected to the wound VAC system using the [employer] program and was connected to the suction button without any complication. Both Martin drains were placed to self-suction. At this time, we planned to take the patient to the ICU for continued pressor support, ventilatory management, and fluid resuscitation. An arterial line was placed at the conclusion of the case, which is dictated under separate cover. Please note that voice recognition software was used to transcribe this note and inadvertent errors might persist in spite of review and editing. I am obliged to you for your attention. I am thankful to you for allowing me to participate with you in this care of this patient. TD: 04/17/2020 11:02 KAYLEEN
[2020-04-17] MEDS: DEXMEDETOMIDINE 400 MCG/100 ML 100 ML IV PRN ×3 (12:23→21:02)
--- NOTE | 2020-04-17 12:52 | ANESTHESIA POST OP EVALUATION ---
Anesthesia Post Eval - Post Anesthesia Eval Vitals: Last Vital Signs Temp 36.7 C 04/17/20 12:00 Pulse 89 04/17/20 12:35 Resp 14 04/17/20 12:00 BP 92/58 L 04/17/20 12:00 Pulse Ox 99 04/17/20 12:00 CV Function Including HR & BP: positive: Stable Pain Control: positive: Satisfactory Nausea & Vomiting: positive: Negative Mental Status: positive: Other (sedated on vent) Respiratory Status: Other (remains on vent) Hydration Status: Satisfactory Anesthesia Complications: positive: None - Other Details/Therapies Other Details/Therapies: Pre-anesthesia Baseline unchanged
[2020-04-17 14:42] LABS: ABG HCO3 18.5 mmol/L (22.0-26.0); ABG PCO2 34 mmHg (34-45); ABG PH 7.36 (7.35-7.45); ABG PO2 112 mmHg (80-100)
[2020-04-17 14:43] LABS: ABG BASE EXCESS -6.2 mmol/L (-2.0-3.0); ABG OXYGEN SATURATION 98 % (94-98); ABG TCO2 19.5 MMOL/L (21.0-29.0)
[2020-04-17] MEDS: VASOPRESSIN 20 UNIT in DEXTROSE 5% 99 ML IV SCH (15:48)
[2020-04-17] MEDS ORDERED: FAT EMULSION 20% 250 ML IV SCH (16:00)
[2020-04-17] MEDS: FAT EMULSION 20% 250 ML IV SCH (18:23)
[2020-04-17] MEDS: TPN (CLINIMIX E 5/15) 2,000 ML with MULTIVITAMIN 10 ML, TRACE ELEMENTS V CONC 1 ML IV SCH ×3 (18:23)
[2020-04-17 21:59] LABS: BASOPHILS % (AUTO) 0.2 %; EOSINOPHILS % (AUTO) 0.2 %; HGB - HEMOGLOBIN 10.5 g/dL (14.0-18.0); LYMPHOCYTES # (AUTO) 0.5 10^3/uL (1.5-3.5); LYMPHOCYTES % (AUTO) 9.6 %; MEAN CORPUSCULAR HEMOGLOBIN 32.1 pg (27.0-31.0); MEAN CORPUSCULAR HGB CONC 33.1 g/dL (32.0-36.0); MEAN CORPUSCULAR VOLUME 96.9 fL (80.0-94.0); MEAN PLATELET VOLUME 10.3 fL (7.4-11.4); MONOCYTES # (AUTO) 0.3 10^3/uL (0.0-1.0); MONOCYTES % (AUTO) 5.3 %; NEUTROPHILS # (AUTO) 4.7 10^3/uL (1.5-6.6); NEUTROPHILS % (AUTO) 83.8 %; PLT - PLATELET COUNT 72 10^3/uL (130-450); RED BLOOD COUNT 3.27 10^6/uL (4.70-6.10); RED CELL DISTRIBUTION WIDTH 13.2 % (12.0-15.0); WHITE BLOOD COUNT 5.6 x10^3/uL (4.8-10.8)
[2020-04-17 22:14] LABS: ALBUMIN 2.6 g/dL (3.2-5.5); ALBUMIN/GLOBULIN RATIO 1.2 (1.0-2.2); BILIRUBIN,TOTAL 0.9 mg/dL (0.2-1.0); CALCIUM 7.1 mg/dL (8.5-10.3); CREATININE 0.8 mg/dL (0.6-1.2); TOTAL PROTEIN 4.8 g/dL (6.7-8.2)
[2020-04-17 23:12] LABS: VBG PH 7.393 (7.31-7.41)
[2020-04-18] MEDS: ACETAMINOPHEN 1,000 MG/100 ML 100 ML IV SCH ×4 (00:10→18:41)
[2020-04-18] MEDS: INSULIN ASPART 300 UNIT/3 ML PEN SUBQ SCH ×2 (00:16→06:09)
[2020-04-18] MEDS: DEXTROSE 5%-0.45% NACL 1,000 ML IV SCH (00:29)
[2020-04-18] MEDS: PHENYLEPHRINE 20 MG in SODIUM CHLORIDE 0.9% 248 ML IV SCH ×4 (00:31→10:50)
[2020-04-18] MEDS: SODIUM CHLORIDE FLUSH 0.9% 10 ML SYRINGE IVP SCH ×3 (00:33→17:13)
[2020-04-18] MEDS: DEXMEDETOMIDINE 400 MCG/100 ML 100 ML IV PRN ×5 (01:19→19:43)
[2020-04-18] MEDS: fentaNYL 2,500 MCG/250 ML 2,500 MCG/250 ML BAG IV SCH ×3 (01:59→18:49)
[2020-04-18] MEDS: PIPERACILLIN/TAZOBACTAM 3.375 GM in SODIUM CHLORIDE 0.9% MINIBAG 100 ML IV SCH ×3 (03:55→20:00)
[2020-04-18] MEDS: ZINC OXIDE 20% OINT 30 GM TUBE TOP PRN ×2 (04:30→14:25)
[2020-04-18 05:15] LABS: BASOPHILS % (AUTO) 0.2 %; EOSINOPHILS % (AUTO) 0.4 %; HGB - HEMOGLOBIN 10.6 g/dL (14.0-18.0); LYMPHOCYTES # (AUTO) 0.6 10^3/uL (1.5-3.5); LYMPHOCYTES % (AUTO) 11.6 %; MEAN CORPUSCULAR HEMOGLOBIN 32.7 pg (27.0-31.0); MEAN CORPUSCULAR HGB CONC 33.8 g/dL (32.0-36.0); MEAN CORPUSCULAR VOLUME 96.9 fL (80.0-94.0); MEAN PLATELET VOLUME 11.1 fL (7.4-11.4); MONOCYTES # (AUTO) 0.3 10^3/uL (0.0-1.0); NEUTROPHILS # (AUTO) 4.5 10^3/uL (1.5-6.6); NEUTROPHILS % (AUTO) 81.1 %; PLT - PLATELET COUNT 78 10^3/uL (130-450); RED BLOOD COUNT 3.24 10^6/uL (4.70-6.10); WHITE BLOOD COUNT 5.5 x10^3/uL (4.8-10.8)
[2020-04-18 05:17] LABS: VBG PH 7.361 (7.31-7.41)
[2020-04-18] MEDS ORDERED: CALCIUM GLUCONATE 1,000 MG in SODIUM CHLORIDE 0.9% 50 ML IV ONE (05:20)
[2020-04-18 05:24] LABS: ALBUMIN 2.7 g/dL (3.2-5.5); ALBUMIN/GLOBULIN RATIO 1.1 (1.0-2.2); BILIRUBIN,TOTAL 0.7 mg/dL (0.2-1.0); CALCIUM 7.3 mg/dL (8.5-10.3); CREATININE 0.8 mg/dL (0.6-1.2); MAGNESIUM 2.2 mg/dL (1.7-2.8); PHOSPHORUS 1.9 mg/dL (2.5-4.6); TOTAL PROTEIN 5.1 g/dL (6.7-8.2)
[2020-04-18 06:09] LABS: ABG BASE EXCESS -3.8 mmol/L (-2.0-3.0); ABG HCO3 20.7 mmol/L (22.0-26.0); ABG OXYGEN SATURATION 95 % (94-98); ABG PCO2 35 mmHg (34-45); ABG PH 7.39 (7.35-7.45); ABG PO2 76 mmHg (80-100); ABG TCO2 21.8 MMOL/L (21.0-29.0); ALLEN TEST POSITIVE
[2020-04-18] MEDS: PANTOPRAZOLE 40 MG VIAL IVP SCH (06:57)
[2020-04-18] MEDS ORDERED: IPRATROPIUM/ALBUTEROL 3 ML NEB INH PRN (07:35)
--- NOTE | 2020-04-18 08:30 | PROVIDER PROGRESS NOTE ---
Subjective - Prog Note Date Prog Note Date: 04/18/20 Prog Note Time: 08:30 - Subjective Subjective: Patient was resting comfortably at time of initial visit in the morning. Sedation was in the process of being decreased in anticipation of attempting weaning trial. Time the patient could attempt to intermittently follow commands With no significant consistency. When weaning trial was initiated by placing the patient on a CPAP mode he became tachypneic, his blood pressure became significantly elevated and he became more agitated. It was deemed that he failed weaning trial and he was put back on sedation. Since then he would intermittently become hypoxic requiring a brief increase of his oxygen to 100% FiO2. He also intermittently required additional Versed 2 keep him sedated. There was decreased air movement in the right lung. Objective - Vital Signs/Intake & Output Vital Signs: Vital Signs Temp Pulse Pulse Resp BP BP Pulse Ox 04/18/20 08:00 37.3 C 54 L 14 122/53 L 120/67 99 04/18/20 07:45 51 L 04/18/20 07:00 51 L 14 135/68 H 123/68 99 04/18/20 06:00 55 L 14 134/68 H 115/65 99 04/18/20 05:48 51 L 04/18/20 05:00 55 L 14 120/62 101/61 96 Intake & Output: Intake & Output 04/15/20 04/16/20 04/17/20 04/18/20 23:59 23:59 23:59 23:59 Intake Total 1000 5682.355 5036.004 3083.03 Output Total 1309 1688 1266 Balance 1000 4373.355 3348.004 1817.03 - Objective General Appearance: positive: Other (Sedated and intubated. However patient intermittently agitated.) ENT: positive: No signs of dehydration Neck: positive: No JVD, Trachea midline Respiratory: positive: Other (Creased air movement on the right side of the lung.) Cardiovascular: positive: Regular rate & rhythm, No murmur Abdomen: positive: Other (Reticulocyte appreciable. Dressing intact.) Skin: positive: Warm, Decubitus (In the gluteal area) Extremities: positive: Pedal edema Neurologic/Psychiatric: positive: Other (Sedated and intubated. Intermittent agitation) - Lab Results Fish Bones: 04/18/20 04:45 04/18/20 04:45 Other Labs: Lab Results x24hrs 04/18/20 04/18/20 04/18/20 Range/Units 06:07 05:55 04:45 WBC (4.8-10.8) x10^3/uL RBC (4.70-6.10) 10^6/uL Hgb (14.0-18.0) g/dL Hct (42.0-52.0) % MCV (80.0-94.0) fL MCH (27.0-31.0) pg MCHC (32.0-36.0) g/dL RDW (12.0-15.0) % Plt Count (130-450) 10^3/uL MPV (7.4-11.4) fL Neut # (Auto) (1.5-6.6) 10^3/uL Lymph # (Auto) (1.5-3.5) 10^3/uL [place] # (Auto) (0.0-1.0) 10^3/uL Eos # (Auto) (0.0-0.7) 10^3/uL Baso # (Auto) (0.0-0.1) 10^3/uL Absolute Nucleated RBC x10^3/uL Nucleated RBC % /100WBC Bld Gas Analysis Time 0606 Sample Site A-LINE ABG pH 7.39 (7.35-7.45) ABG pCO2 35 (34-45) mmHg ABG pO2 76 L (80-100) mmHg ABG HCO3 20.7 L (22.0-26.0) mmol/L ABG Total CO2 21.8 (21.0-29.0) MMOL/L ABG O2 Saturation 95 (94-98) % ABG Base Excess -3.8 L (-2.0-3.0) mmol/L Nick Test POSITIVE VBG pH 7.361 (7.31-7.41) Ionized Calcium 1.06 L (1.15-1.33) mmol/L Respiration Rate 14 b/min O2 Delivery Device VENTILATOR Vent Mode ASSIST/CONTROL FiO2 0.30 Tidal Volume 600 mL PEEP 5 cmH2O Sodium (135-145) mmol/L Potassium (3.5-5.0) mmol/L Chloride (101-111) mmol/L Carbon Dioxide (21-32) mmol/L Anion Gap (6-13) BUN (6-20) mg/dL Creatinine (0.6-1.2) mg/dL Estimated GFR (MDRD) (>89) Glucose (70-100) mg/dL POC Whole Bld Glucose 212 H (70 - 100) mg/dL Lactic Acid (0.5-2.2) mmol/L Calcium (8.5-10.3) mg/dL Phosphorus (2.5-4.6) mg/dL Magnesium (1.7-2.8) mg/dL Total Bilirubin (0.2-1.0) mg/dL AST (10-42) IU/L ALT (10-60) IU/L Alkaline Phosphatase (42-121) IU/L Total Protein (6.7-8.2) g/dL Albumin (3.2-5.5) g/dL Globulin (2.1-4.2) g/dL Albumin/Globulin Ratio (1.0-2.2) 04/18/20 04/18/20 04/18/20 Range/Units 04:45 04:45 00:14 WBC 5.5 (4.8-10.8) x10^3/uL RBC 3.24 L (4.70-6.10) 10^6/uL Hgb 10.6 L (14.0-18.0) g/dL Hct 31.4 L (42.0-52.0) % MCV 96.9 H (80.0-94.0) fL MCH 32.7 H (27.0-31.0) pg MCHC 33.8 (32.0-36.0) g/dL RDW 13.0 (12.0-15.0) % Plt Count 78 L (130-450) 10^3/uL MPV 11.1 (7.4-11.4) fL Neut # (Auto) 4.5 (1.5-6.6) 10^3/uL Lymph # (Auto) 0.6 L (1.5-3.5) 10^3/uL [place] # (Auto) 0.3 (0.0-1.0) 10^3/uL Eos # (Auto) 0.0 (0.0-0.7) 10^3/uL Baso # (Auto) 0.0 (0.0-0.1) 10^3/uL Absolute Nucleated RBC 0.00 x10^3/uL Nucleated RBC % 0.0 /100WBC Bld Gas Analysis Time Sample Site ABG pH (7.35-7.45) ABG pCO2 (34-45) mmHg ABG pO2 (80-100) mmHg ABG HCO3 (22.0-26.0) mmol/L ABG Total CO2 (21.0-29.0) MMOL/L ABG O2 Saturation (94-98) % ABG Base Excess (-2.0-3.0) mmol/L Nick Test VBG pH (7.31-7.41) Ionized Calcium (1.15-1.33) mmol/L Respiration Rate b/min O2 Delivery Device Vent Mode FiO2 Tidal Volume mL PEEP cmH2O Sodium 128 L (135-145) mmol/L Potassium 3.8 (3.5-5.0) mmol/L Chloride 101 (101-111) mmol/L Carbon Dioxide 21 (21-32) mmol/L Anion Gap 6.0 (6-13) BUN 16 (6-20) mg/dL Creatinine 0.8 (0.6-1.2) mg/dL Estimated GFR (MDRD) 93 (>89) Glucose 206 H (70-100) mg/dL POC Whole Bld Glucose 193 H (70 - 100) mg/dL Lactic Acid (0.5-2.2) mmol/L Calcium 7.3 L (8.5-10.3) mg/dL Phosphorus 1.9 L (2.5-4.6) mg/dL Magnesium 2.2 (1.7-2.8) mg/dL Total Bilirubin 0.7 (0.2-1.0) mg/dL AST 54 H (10-42) IU/L ALT 22 (10-60) IU/L Alkaline Phosphatase 36 L (42-121) IU/L Total Protein 5.1 L (6.7-8.2) g/dL Albumin 2.7 L (3.2-5.5) g/dL Globulin 2.4 (2.1-4.2) g/dL Albumin/Globulin Ratio 1.1 (1.0-2.2) 04/17/20 04/17/20 04/17/20 Range/Units 23:07 21:54 21:54 WBC (4.8-10.8) x10^3/uL RBC (4.70-6.10) 10^6/uL Hgb (14.0-18.0) g/dL Hct (42.0-52.0) % MCV (80.0-94.0) fL MCH (27.0-31.0) pg MCHC (32.0-36.0) g/dL RDW (12.0-15.0) % Plt Count (130-450) 10^3/uL MPV (7.4-11.4) fL Neut # (Auto) (1.5-6.6) 10^3/uL Lymph # (Auto) (1.5-3.5) 10^3/uL [place] # (Auto) (0.0-1.0) 10^3/uL Eos # (Auto) (0.0-0.7) 10^3/uL Baso # (Auto) (0.0-0.1) 10^3/uL Absolute Nucleated RBC x10^3/uL Nucleated RBC % /100WBC Bld Gas Analysis Time Sample Site ABG pH (7.35-7.45) ABG pCO2 (34-45) mmHg ABG pO2 (80-100) mmHg ABG HCO3 (22.0-26.0) mmol/L ABG Total CO2 (21.0-29.0) MMOL/L ABG O2 Saturation (94-98) % ABG Base Excess (-2.0-3.0) mmol/L Nick Test VBG pH 7.393 (7.31-7.41) Ionized Calcium 1.00 L (1.15-1.33) mmol/L Respiration Rate b/min O2 Delivery Device Vent Mode FiO2 Tidal Volume mL PEEP cmH2O Sodium 130 L (135-145) mmol/L Potassium 3.9 (3.5-5.0) mmol/L Chloride 102 (101-111) mmol/L Carbon Dioxide 21 (21-32) mmol/L Anion Gap 7.0 (6-13) BUN 19 (6-20) mg/dL Creatinine 0.8 (0.6-1.2) mg/dL Estimated GFR (MDRD) 93 (>89) Glucose 216 H (70-100) mg/dL POC Whole Bld Glucose (70 - 100) mg/dL Lactic Acid 1.4 (0.5-2.2) mmol/L Calcium 7.1 L (8.5-10.3) mg/dL Phosphorus (2.5-4.6) mg/dL Magnesium (1.7-2.8) mg/dL Total Bilirubin 0.9 (0.2-1.0) mg/dL AST 59 H (10-42) IU/L ALT 23 (10-60) IU/L Alkaline Phosphatase 34 L (42-121) IU/L Total Protein 4.8 L (6.7-8.2) g/dL Albumin 2.6 L (3.2-5.5) g/dL Globulin 2.2 (2.1-4.2) g/dL Albumin/Globulin Ratio 1.2 (1.0-2.2) 04/17/20 04/17/20 04/16/20 Range/Units 21:54 14:32 11:50 WBC 5.6 (4.8-10.8) x10^3/uL RBC 3.27 L (4.70-6.10) 10^6/uL Hgb 10.5 L (14.0-18.0) g/dL Hct 31.7 L (42.0-52.0) % MCV 96.9 H (80.0-94.0) fL MCH 32.1 H (27.0-31.0) pg MCHC 33.1 (32.0-36.0) g/dL RDW 13.2 (12.0-15.0) % Plt Count 72 L (130-450) 10^3/uL MPV 10.3 (7.4-11.4) fL Neut # (Auto) 4.7 (1.5-6.6) 10^3/uL Lymph # (Auto) 0.5 L (1.5-3.5) 10^3/uL [place] # (Auto) 0.3 (0.0-1.0) 10^3/uL Eos # (Auto) 0.0 (0.0-0.7) 10^3/uL Baso # (Auto) 0.0 (0.0-0.1) 10^3/uL Absolute Nucleated RBC 0.00 x10^3/uL Nucleated RBC % 0.0 /100WBC Bld Gas Analysis Time 1432 Sample Site A-LINE ABG pH 7.36 (7.35-7.45) ABG pCO2 34 (34-45) mmHg ABG pO2 112 H (80-100) mmHg ABG HCO3 18.5 L (22.0-26.0) mmol/L ABG Total CO2 19.5 L (21.0-29.0) MMOL/L ABG O2 Saturation 98 (94-98) % ABG Base Excess -6.2 L (-2.0-3.0) mmol/L Nick Test NOT APPLICABLE VBG pH (7.31-7.41) Ionized Calcium (1.15-1.33) mmol/L Respiration Rate 14 b/min O2 Delivery Device VENTILATOR Vent Mode ASSIST/CONTROL FiO2 30.00 Tidal Volume 600 mL PEEP 5 cmH2O Sodium (135-145) mmol/L Potassium (3.5-5.0) mmol/L Chloride (101-111) mmol/L Carbon Dioxide (21-32) mmol/L Anion Gap (6-13) BUN (6-20) mg/dL Creatinine (0.6-1.2) mg/dL Estimated GFR (MDRD) (>89) Glucose (70-100) mg/dL POC Whole Bld Glucose 148 H (70 - 100) mg/dL Lactic Acid (0.5-2.2) mmol/L Calcium (8.5-10.3) mg/dL Phosphorus (2.5-4.6) mg/dL Magnesium (1.7-2.8) mg/dL Total Bilirubin (0.2-1.0) mg/dL AST (10-42) IU/L ALT (10-60) IU/L Alkaline Phosphatase (42-121) IU/L Total Protein (6.7-8.2) g/dL Albumin (3.2-5.5) g/dL Globulin (2.1-4.2) g/dL Albumin/Globulin Ratio (1.0-2.2) Sepsis Event Note (H) - Evaluation Current Stage of Sepsis: Sepsis Possible source of Sepsis: positive: GI tract/intra-abdominal - Sepsis Criteria Sepsis Criteria: WBC count greater than 12,000 or less than 4000, Metabolic: lactate > 2 mmol/L Assessment/Plan - Problem List (1) Obstruction concurrent with and due to internal hernia of abdomen Impression: Exploratory laparotomy, Small bowel resection of 54 inches of necrotic ileum POD #2 Patient was left in discontinuity and with open abdomen. Second look laparotomy/reexploration POD#1. Dr. Williamson is managing surgical aspect. (2) Sepsis Impression: Likely multifactorial. Secondary to necrotic small bowel and pneumonia. Patient is on Zosyn. Patient appears stable. His white count normalized from 18.8 on day of admission to 5.5 today. Patient's urine output improved. He is off pressors. Lactic acid is normal at 1.4 at last check Qualifiers: Sepsis type: sepsis due to unspecified organism Sepsis acute organ dysfunction status: without acute organ dysfunction Qualified Code(s): A41.9 - Sepsis, unspecified organism (3) Respiratory failure Impression: Multifactorial. Patient appears to have pneumonia which is suspected to be secondary to aspiration. Chest x-ray done today showed bilateral basal opacities Patient also has a history of COPD and lung cancer with resection of right upper lobe And also appears volume overloaded. Patient is currently sedated with precedex, fentanyl and as needed Versed and intubated. Patient failed weaning trial today. Will attempt again tomorrow. Patient was ordered Lasix 40 mg IV twice daily x2 doses. Will reassess for continuation tomorrow. Fluids discontinued. We will monitor I's and O's. Later in the evening the patient's oxygen saturation with slowly dropped to the high 80s. As a result patient FiO2 was increased from 35 to 40%. The patient is maintained on SIMV mode. Qualifiers: Chronicity: acute Respiratory failure complication: hypoxia Qualified Code(s): J96.01 - Acute respiratory failure with hypoxia (4) Pneumonia Impression: Patient is on Zosyn. We will continue to monitor. (5) Electrolyte abnormality Impression: Patient is mildly hyponatremic with a sodium level of 128. This may be due to volume overload. Lasix 40 mg IV twice daily has been ordered. Patient was given 15mmol of potassium phosphate for a phosphorus level of 1.9. Patient was given 1 g of calcium gluconate for calcium level of 7.3. Continue to monitor electrolytes and replace accordingly. (6) Lactic acidosis Impression: Resolved. Last lactic acid level was 1.4. (7) History of COPD Impression: On DuoNeb 4 times daily as needed. (8) History of lung cancer Impression: This might confound the ability to wean patient off ventilation (9) History of coronary artery disease Impression: We will continue to hold patient's beta-raymundo for now.
--- NOTE | 2020-04-18 08:49 | PROVIDER PROGRESS NOTE ---
Progress Note Subjective 80-year-old male who presents with multiple comorbid states including CAD, UT, status post multiple cardiac stents, morbid obesity who was evaluated in the emergency room for nearly 12 hours of abdominal pain and CT findings notable for internal herniation; patient taken emergently for below listed procedure and noted for 54 inches of necrotic ileum for which damage control laparotomy was undertaken with resection, discontinuity, and open abdominal dressing. Patient was placed for multiple lines and has remained intubated in the ICU. INDEX Procedure Performed: 1. Exploratory laparotomy 2. Lysis of adhesions 3. Partial omentectomy 4. Small bowel resection with discontinuity 5. Abdominal washout 6. Wide drainage 7. Open abdomen 8. Right internal jugular triple-lumen catheter 9. Right femoral arterial line 10. Open appendectomy In the interim patient has been weaned significantly off Daniel-Synephrine. Vasopressin weaned. Patient has normalized for heart rate. Normalized lactic acidosis. Yesterday, status post: Procedure Performed: 1. Second look laparotomy/re-exploration 2. Small bowel resection 3. Small bowel anastomosis 4. Abdominal washout 5. Wide local drainage 6. Closure of mesenteric defect 7. Possible ventral hernia repair Objective Afebrile hemodynamically acceptable Patient sedated but arousable and following basic commands No acute distress resting comfortably in bed; intubated and sedated Lungs clear to auscultation bilaterally no wheezes rales or rhonchi Radial pulses palpable bilaterally with good capillary refill Abdomen soft nontender nondistended no rebound no guarding Dressing clean dry and intact. Martin drains serosanguineous. Moving all extremities with no sensorimotor deficits Cranial nerves II through XII grossly intact Assessment and plan: 80-year-old male postoperative day #1 status post second look laparotomy/damage control surgery with roman catholic of bowel continuity and abdominal closure of fa scial defect. Presented with ischemic bowel/necrotic ileum from internal herniation. Multiple comorbid states. Septic shock. Plan going forward is as follows: (1) GI - hold intravenous fluid given fluid retention, continue parenteral nutrition, anticipate prolonged ileus thus will defer trickle feeds by nasogastric tube until certain patient candidate for extubation. Will consider exchange for Dobbhoff tube once weaned from ventilator. (2) SURGERY - [Continue LYNDA.] Abdominal binder. Wound care [continue packing midline wound in several days]. (3) Renal/Lytes - continue IVF. Renal indices within normal limits. (4) Respiratory - continue ventilatory support; attempted spontaneous breathing trial however secondary to agitation deferred extubation today. Would recommend diuresis given positive fluid retention in the setting of significant resuscitation. Discussed with hospitalist. Maintain antibiotics for presumptive infiltrates. (5) Heme - Will continue with mechanical DVT ppx. [H/H stable]. Thrombocytopenia; will follow. (6) Cardiovascular - HD acceptable. Maintained off pressors. We will plan diuresis. Continue arterial line. (7) Neuro - continue sedation with Precedex; as needed anxiety lytic with Versed. Continue restraints. Continue pain management with fentanyl. (8) continue ICU level of care, continue to greatly appreciate the hospitalist input with regard to this complex patient. (9) ENDOCRINOLOGY - continue insulin sliding scale. (10) Infectious Disease - continue Zosyn for broad coverage. Leave midline wound open. Antibiotic should also cover concern for pulmonary infiltrates. Leukocytosis resolved. Inflammatory markers resolved. Continue current management.
[2020-04-18] MEDS ORDERED: POTASSIUM PHOSPHATE 15 MMOL in SODIUM CHLORIDE 0.9% 250 ML IV ONE (09:00)
[2020-04-18] MEDS: HEPARIN 5,000 UNIT/ML VIAL SUBQ SCH ×2 (09:57→20:34)
--- NOTE | 2020-04-18 10:00 | XRAY Report ---
PROCEDURE: Chest 1 View X-Ray INDICATIONS: dcreased air mov't in right lung. intubated TECHNIQUE: One view of the chest was acquired. COMPARISON: 04/16/2020 FINDINGS: Surgical changes and devices: Endotracheal tube is seen with the tip projecting approximately 6 cm ab ove the elmo. Enteric tube is also noted with the tip below the GE junction however not included on the study. Right internal jugular central venous catheter unchanged.. Lungs and pleura: No pleural effusions or pneumothorax. Unchanged blunting of the right costophrenic angle. Bibasilar patchy consolidative opacities are increased. Mediastinum: Mediastinal contours ap pear normal. Heart size is normal. Bones and chest wall: No suspicious bony lesions. Overlying soft tissues appear unremarkable. IMPRESSION: Worsening bibasilar patchy consolidative opacities compatible with aspiration versus. If there is per sistent clinical diagnostic uncertainty, recommend short interval follow-up chest radiographs after t reatment for further assessment. Reviewed by: Jt Oliva MD on 04/18/2020 9:59 AM PST Approved by: Jt Oliva MD on 04/18/2020 9:59 AM PST Station ID: [id number]
[2020-04-18] MEDS: SODIUM CHLORIDE FLUSH 0.9% 10 ML SYRINGE IVP PRN ×2 (10:33→20:14)
[2020-04-18 10:37] LABS: ABG PH 7.36 (7.35-7.45)
[2020-04-18 10:38] LABS: ABG BASE EXCESS -3.8 mmol/L (-2.0-3.0); ABG HCO3 21.4 mmol/L (22.0-26.0); ABG OXYGEN SATURATION 95 % (94-98); ABG PCO2 39 mmHg (34-45); ABG PO2 80 mmHg (80-100); ABG TCO2 22.6 MMOL/L (21.0-29.0)
[2020-04-18] MEDS: CHLORHEXIDINE GLUCONATE 15 ML UDC PO SCH ×2 (10:38→20:37)
[2020-04-18] MEDS ORDERED: SODIUM CHLORIDE INHALATION 3 ML NEB ONE (11:46)
[2020-04-18] MEDS: INSULIN REGULAR HUMAN 300 UNIT/3 ML VIAL SUBQ SCH ×2 (12:06→18:36)
[2020-04-18] MEDS ORDERED: MIDAZOLAM 2 MG/2 ML VIAL IVP STA (14:54)
[2020-04-18] MEDS: FUROSEMIDE 40 MG/4 ML VIAL IVP SCH (15:27)
--- NOTE | 2020-04-18 17:38 | OPERATIVE REPORT ---
DATE OF SERVICE: 04/17/2020 Physician: Pranav Williamson MD [place] SURGICAL PHYSICIAN/Assist: Dr. Sam Browning. CORRECTION LIEUTENANT: Marco Gonzalez. PLANNED PROCEDURE: 1. Second look laparotomy/reexploration. 2. Possible small-bowel resection. 3. Possible anastomosis. 4. Possible open abdomen. 5. Wide local drainage. 6. Possible ventral hernia repair. PROCEDURES PERFORMED: 1. Second look laparotomy/reexploration. 2. Small-bowel resection. 3. Small-bowel anastomosis. 4. Abdominal washout. 5. Wide local drainage. 6. Closure of mesenteric defects. 7. Ventral hernia repair. 8. Partial skin closure with wound packing. PREOPERATIVE DIAGNOSES: 1. Septic shock. 2. Small-bowel necrosis. 3. Obesity. 4. Multiple comorbidities. 5. Open abdomen with bowel discontinuity. 6. Chronic obstructive pulmonary disease. 7. Coronary artery disease, status post stenting. POSTOPERATIVE DIAGNOSES: 1. Septic shock. 2. Small-bowel necrosis. 3. Obesity. 4. Multiple comorbidities. 5. Open abdomen with bowel discontinuity. 6. Chronic obstructive pulmonary disease. 7. Coronary artery disease, status post stenting. 8. Viable bowel. 9. Viable anastomosis. 10. Hemodynamic stability. INDICATIONS: 1. Open abdomen, status post damage control laparotomy with bowel resection in discontinuity. 2. Hemodynamic septic shock, necessitating pressors and fluid resuscitation. 3. Need for second look reexploration to assess for any progression of the patient's bowel necrosis/ischemia. 4. Improvement of hemodynamic parameters and inflammatory markers, suggesting possible indication for closure and bahai of continuity. INTRAOPERATIVE FINDINGS: 1. Proximal small bowel from the ligament of Treitz through to distal resection margin viable, however 2-3 cm margin resected to assure viability. 2. Distal ileal margin with no complications; appendectomy staple line intact. 3. Widely patent viable intact anastomosis [id number] functional end-to-end antiperistaltic enteroenterostomy; enterotomy closed in 2 layers with running canal stitch and interrupted Lemberts with 2-0 Vicryl. 4. Large ventral hernia defect closed in bidirectional fashion with looped PDS with no complication. 5. Skin left open secondary to contaminated case and concern for infectious complication in a patient on pressors and damage control laparotomy. COMPLICATIONS: None. OPERATIVE REPORT: Patient was taken from the ICU intubated and sedated to the operating room, was placed at the top of the operating table. Patient was maintained for sedation and general anesthetic. Patient was consented through the spouse, as the patient was unable to consent for himself, both intubated, sedated, and paralyzed. The , Apurva, was obtained for informed consent, which was documented in the medical record and was notified of the patient's condition and the need to proceed with reoperative exploration in the setting of damage control laparotomy, with bowel discontinuity. The patient was removed for the top layer of his historic dressings, and thereafter with the Kerlix exposed the patient was prepped and draped in the usual sterile fashion. Please note that the Kerlix and open abdominal portion of the patient's dressing was prepped with Betadine and the rest was prepped with chlorhexidine. We also redressed the patient's right femoral arterial line. The patient was called for a timeout, which was agreed to by all in the room. At this time, we had known the counts from the previous operative intervention with 2 lengths of Kerlix removed and accounted for, the sponge having already been removed prior to prepping. At this time, also the intraabdominal blue towel covered in Ioban was also removed, as were the historic Martin drains removed from the abdomen as well. We proceeded both myself and Dr. Browning to evaluate the abdomen with wound ring in place. After evaluating the entirety of the small bowel, which was first run from the ligament of Treitz all the way to the distal resection margin, we noted approximately 2-3 cm of small bowel that appeared possibly associated with some venous congestion and was anticipated for a partial small-bowel resection. The distal resection margin was evaluated from its staple line all the way through to the ileocecal valve at the fold of Treves, which had already been resected along with the appendix at the time of patient's previous operative intervention. The bowel was viable, pink, peristaltic, and without any concern for propagating ischemia. At this time, we planned to perform a dnll-kf-ssqk functional end-to-end stapled anastomosis. The omentum was also evaluated with no rents. The abdomen was fully evaluated with no other concerns at the level of the colon, either the sigmoid, the cecum, the ascending, transverse or descending colons. We proceeded to perform the vmyy-xz-fxdt functional end-to-end anastomosis in the usual fashion as follows. The proximal staple line was cut at its antimesenteric margin and thereafter placed for an Allis clamp. The pool sucker was thereafter used to aspirate the enteric contents to decompress the bowel from its current state of obstruction in discontinuity. The bowel was entirely milked for all its contents from the ligament of Treitz all the way through to the distal staple margin without any spillage of any enteric contents. At this time, we chose to again resect several centimeters of ileum from this proximal margin performed as follows. A mesenteric window was made and a stapler was fired with Endo-DORY. The mesentery was divided with a clamp, clamp, cut tie fashion with 0 Vicryl ligature. This was passed off as the proximal margin for permanent pathology. Thereafter, we proceeded to align the 2 lengths of bowel and thereafter performed enterotomies on both of the antimesenteric margins. The staple Endo-DORY blue load was inserted, and Allis clamps were placed along the antimesenteric staple lines of both ends. These were incised and divided using curved Bull scissors. Thereafter, the limbs of the linear cutting stapler were placed through both enterotomies, and a gsab-kp-rpeo functional anastomosis was created once the staple line was fired. There was no bleeding, and after the staple was fired 2 seromuscular crotch sutures were placed in order to relieve any tension at the level of the distal anastomosis. Thereafter, the enterotomies were closed in 2 layers, first with a running canal stitch of 2-0 Vicryl and thereafter followed by interrupted Lembert stitches of 3-0 Vicryl. The anastomosis was widely patent and intact with no ischemic change or concerning features. The large mesenteric defect from the patient's lengthy segmental resection in the setting of bowel ischemia was closed with a running suture of 2-0 Vicryl without any bleeding or compromise of the small intestinal blood supply. With the anastomosis created and small-bowel mesenteric defect closed, we thereafter proceeded to reevaluate and run the bowel without any complication. The historic appendectomy staple line was evaluated and intact. The nyke-kj-lgkz functional end-to-end antiperistaltic anastomosis was evaluated and was noted to be intact, and the entirety of the bowel was without any concerns for any ischemic compromise. We irrigated the abdomen extensively with 3 to 4 liters of warm saline and thereafter replaced the omentum overlying the abdominal contents. We replaced 2 Martin drains in the paracolic gutters, both 19-Armenian, and each in the right and left lower quadrants. These were secured in place with 2-0 nylon suture. These were secured to self-suction with grenade bulbs. We thereafter after aspirating the abdomen clear checked for the placement of the NG tube, which was intact and planned for bidirectional closure of the fascia. This was performed with 2 looped PDS given the patient's large defect, and this was without need for any further relaxing incisions given the decompression of the bowel from its enteric contents and the loss of length from the patient's historic resection during the index damage control laparotomy. Also, this was a tension free closure as well. At this time, after having tied the looped PDS in the middle and having already confirmed that all counts of sponges, needles, and instruments were correct prior to abdominal closure, we opted to defer any skin closure given the concerns for infectious sequela in the setting of an open abdomen. We partially approximated the skin with interrupted deep dermals of Vicryl and thereafter placed a single length of 1 inch packing strip throughout the entirety of the wound, which was ultimately covered with a silver impregnated dressing. Once this was completed, we confirmed again all counts of sponges, needles, and instruments were correct. The patient was dressed for the 2 JPs with Biopatches, and the patient was planned to return to the ICU in stable condition. I was present for the entirety of this operative intervention. Please note that the presence of Dr. Browning, given his expertise and his long history of surgical judgment and skill, was essential to assure that we approached this complex patient with multiple comorbid states with critical surgical skill and knowledge. He was also crucial in performing the anastomosis and complex abdominal closure, for which he was an essential participant and element. TD: 04/18/2020 16:47 KAYLEEN
--- NOTE | 2020-04-18 17:59 | XRAY Report ---
PROCEDURE: Chest 1 View X-Ray INDICATIONS: hypoxia TECHNIQUE: One view of the chest was acquired. COMPARISON: Chest radiograph from earlier same day FINDINGS: Surgical changes and devices: Endotracheal tube tip projects approximately 6.2 cm above the elmo. N asogastric tube extends below the level of the diaphragm with distal tip excluded off the field-of-vi ew. Right internal jugular central venous catheter is unchanged in positioning with the distal tip pr ojecting in the mid SVC.. Lungs and pleura: No pneumothorax seen. Bilateral pleural effusions unchanged. Patchy bibasilar opaci ties not significantly changed. No new focal consolidations. Mediastinum: Mediastinal contours appear stable. Heart size is stable. Bones and chest wall: No suspicious bony lesions. Overlying soft tissues appear unremarkable. IMPRESSION: Support equipment as described above. Persistent small bilateral pleural effusions. Stable appearance of patchy bibasilar opacities which may represent atelectasis versus airspace disea se or aspiration. No significant change or new airspace disease identified. Reviewed by: Ben Rodriguez MD on 04/18/2020 4:58 PM [place] Approved by: Ben Rodriguez MD on 04/18/2020 4:58 PM [place] Station ID: [id number]
[2020-04-18] MEDS ORDERED: MIDAZOLAM 2 MG/2 ML VIAL IVP PRN (18:09)
[2020-04-18] MEDS: TPN (CLINIMIX E 5/15) 2,000 ML with MULTIVITAMIN 10 ML, TRACE ELEMENTS V CONC 1 ML IV SCH ×3 (18:24)
[2020-04-18] MEDS: FAT EMULSION 20% 250 ML IV SCH (18:25)
[2020-04-18 18:59] LABS: ABG BASE EXCESS -3.1 mmol/L (-2.0-3.0); ABG OXYGEN SATURATION 98 % (94-98); ABG PCO2 46 mmHg (34-45); ABG PH 7.32 (7.35-7.45); ABG PO2 116 mmHg (80-100); ABG TCO2 24.4 MMOL/L (21.0-29.0)
[2020-04-19] MEDS: ACETAMINOPHEN 1,000 MG/100 ML 100 ML IV SCH ×2 (00:10→06:02)
[2020-04-19] MEDS: INSULIN REGULAR HUMAN 300 UNIT/3 ML VIAL SUBQ SCH ×4 (00:14→18:10)
[2020-04-19] MEDS: DEXMEDETOMIDINE 400 MCG/100 ML 100 ML IV PRN ×7 (00:21→23:39)
[2020-04-19] MEDS: SODIUM CHLORIDE FLUSH 0.9% 10 ML SYRINGE IVP SCH ×3 (00:25→17:19)
--- OUTSIDE RECORDS SUMMARY | 2020-04-19 01:53 | EXTERNAL MEDICAL SUMMARY RPT | Continuity of Care Document ---
:1940 Demographics Phone Unavailable Preferred Language Unknown Marital Status Unknown Latter Day Affiliation Unknown Race Unknown Ethnic Group Unknown Author Organization [place] Address [address] [phone] Phone Care Team Providers Name Role Phone Land Unavailable Unavailable Allergies date description facility NO KNOWN ENVIRONMENTAL ALLERGIES [facility] NO ALLERGY INFORMATION AVAILABLE [facility] NO KNOWN ALLERGIES [facility] No Known Drug Allergies [facility] NO KNOWN ENVIRONMENTAL ALLERGIES [facility] NO KNOWN ALL[facility]GIES [facility] BL[facility]OL[facility] GOLD AU 198 [facility] DO[facility]CYCLINE [facility]IN [facility] Results Social History date description facility [id number]
--- OUTSIDE RECORDS SUMMARY | 2020-04-19 01:54 | EXTERNAL MEDICAL SUMMARY RPT | Continuity of Care Document ---
:1940 Demographics Phone Unavailable Preferred Language Unknown Marital Status Unknown Jainism Affiliation Unknown Race Unknown Ethnic Group Unknown Author Organization [place] Address [address] [phone] Phone Care Team Providers Name Role Phone Land Unavailable Unavailable Allergies date description facility NO KNOWN ENVIRONMENTAL ALLERGIES [facility] NO ALLERGY INFORMATION AVAILABLE [facility] NO KNOWN ALLERGIES [facility] No Known Drug Allergies [facility] NO KNOWN ENVIRONMENTAL ALLERGIES [facility] NO KNOWN ALLER[facility] GOLD AU 198 [facility] DOXYCYCLINE [facility] Results Social History date description facility [id number]
--- OUTSIDE RECORDS SUMMARY | 2020-04-19 01:56 | EXTERNAL MEDICAL SUMMARY RPT | Continuity of Care Document ---
:1940 Demographics Phone Unavailable Preferred Language Unknown Marital Status Unknown Synagogue Affiliation Unknown Race Unknown Ethnic Group Unknown Author Organization [place] Address [address] [phone] Phone Care Team Providers Name Role Phone Land Unavailable Unavailable Allergies date description facility NO KNOWN ENVIRONMENTAL ALLERGIES [facility] NO ALLERGY INFORMATION AVAILABLE [facility] NO KNOWN ALLERGIES [facility] No Known Drug Allergies [facility] NO KNOWN ENVIRONMENTAL ALLERGIES [facility] NO KN[facility] ALL[facility] BLUE [facility] GOLD AU 198 [facility]CLINE [facility] B[facility]IN [facility] Results Social History date description facility [id number]
[2020-04-19] MEDS: fentaNYL 2,500 MCG/250 ML 2,500 MCG/250 ML BAG IV SCH ×3 (02:00→18:33)
[2020-04-19] MEDS: PIPERACILLIN/TAZOBACTAM 3.375 GM in SODIUM CHLORIDE 0.9% MINIBAG 100 ML IV SCH ×3 (03:05→19:55)
[2020-04-19] MEDS: ZINC OXIDE 20% OINT 30 GM TUBE TOP PRN ×3 (05:00→15:54)
[2020-04-19 05:25] LABS: BASOPHILS % (AUTO) 0.4 %; EOSINOPHILS % (AUTO) 0.8 %; HGB - HEMOGLOBIN 9.8 g/dL (14.0-18.0); LYMPHOCYTES # (AUTO) 0.8 10^3/uL (1.5-3.5); LYMPHOCYTES % (AUTO) 16.3 %; MEAN CORPUSCULAR HEMOGLOBIN 32.9 pg (27.0-31.0); MEAN CORPUSCULAR HGB CONC 33.6 g/dL (32.0-36.0); MEAN PLATELET VOLUME 11.8 fL (7.4-11.4); MONOCYTES # (AUTO) 0.3 10^3/uL (0.0-1.0); MONOCYTES % (AUTO) 5.4 %; NEUTROPHILS # (AUTO) 3.8 10^3/uL (1.5-6.6); NEUTROPHILS % (AUTO) 75.9 %; PLT - PLATELET COUNT 77 10^3/uL (130-450); RED BLOOD COUNT 2.98 10^6/uL (4.70-6.10); RED CELL DISTRIBUTION WIDTH 12.9 % (12.0-15.0)
[2020-04-19 05:34] LABS: ALBUMIN 2.4 g/dL (3.2-5.5); ALBUMIN/GLOBULIN RATIO 0.9 (1.0-2.2); BILIRUBIN,TOTAL 0.6 mg/dL (0.2-1.0); CALCIUM 7.5 mg/dL (8.5-10.3); CREATININE 0.8 mg/dL (0.6-1.2); PHOSPHORUS 1.7 mg/dL (2.5-4.6); TOTAL PROTEIN 5.1 g/dL (6.7-8.2)
[2020-04-19 05:36] LABS: VBG PH 7.401 (7.31-7.41)
[2020-04-19] MEDS ORDERED: CALCIUM GLUCONATE 1,000 MG in SODIUM CHLORIDE 0.9% 50 ML IV ONE (06:00)
[2020-04-19] MEDS: PANTOPRAZOLE 40 MG VIAL IVP SCH (06:14)
[2020-04-19 06:33] LABS: ABG BASE EXCESS -3.3 mmol/L (-2.0-3.0); ABG HCO3 21.5 mmol/L (22.0-26.0); ABG OXYGEN SATURATION 92 % (94-98); ABG PCO2 37 mmHg (34-45); ABG PH 7.38 (7.35-7.45); ABG PO2 62 mmHg (80-100); ABG TCO2 22.6 MMOL/L (21.0-29.0)
[2020-04-19] MEDS: FUROSEMIDE 40 MG/4 ML VIAL IVP SCH ×2 (07:06→13:35)
[2020-04-19] MEDS ORDERED: POTASSIUM PHOSPHATE 15 MMOL in SODIUM CHLORIDE 0.9% 250 ML IV ONE ×2 (08:21→08:30)
[2020-04-19] MEDS ORDERED: CALCIUM GLUCONATE 2,000 MG in SODIUM CHLORIDE 0.9% 100ML 100 ML IV ONE (08:21)
--- NOTE | 2020-04-19 08:27 | PROVIDER PROGRESS NOTE ---
Subjective - Prog Note Date Prog Note Date: 04/19/20 Prog Note Time: 08:30 - Subjective Subjective: Patient was resting comfortably at time of visit. A weaning trial was again initiated today with weaning of sedation. The patient tolerated the CPAP mode for more than an hour Yesterday he had a total of about 5500 ml of fluid in and 3794 ml of fluid out PN was adjusted to decrease the overall amount of fluid he received on a daily basis. Objective - Vital Signs/Intake & Output Vital Signs: Vital Signs Temp Pulse Resp BP BP Pulse Ox 04/19/20 08:00 36.4 C L 54 L 14 106/50 L 106/62 100 04/19/20 07:00 49 L 14 101/52 L 94/60 97 04/19/20 06:00 51 L 14 95/59 L 04/19/20 05:00 67 21 100/48 L 109/70 100 Intake & Output: Intake & Output 04/16/20 04/17/20 04/18/20 04/19/20 23:59 23:59 23:59 23:59 Intake Total 5682.355 5036.004 5536.071 2376.267 Output Total 1309 1688 3794 888 Balance 4373.355 3348.004 1171.788 5864.267 - Lab Results Fish Bones: 04/19/20 04:20 04/19/20 04:20 Other Labs: Lab Results x24hrs 04/19/20 04/19/20 04/19/20 Range/Units 06:25 04:20 04:20 WBC (4.8-10.8) x10^3/uL RBC (4.70-6.10) 10^6/uL Hgb (14.0-18.0) g/dL Hct (42.0-52.0) % MCV (80.0-94.0) fL MCH (27.0-31.0) pg MCHC (32.0-36.0) g/dL RDW (12.0-15.0) % Plt Count (130-450) 10^3/uL MPV (7.4-11.4) fL Neut # (Auto) (1.5-6.6) 10^3/uL Lymph # (Auto) (1.5-3.5) 10^3/uL Roosevelt # (Auto) (0.0-1.0) 10^3/uL Eos # (Auto) (0.0-0.7) 10^3/uL Baso # (Auto) (0.0-0.1) 10^3/uL Absolute Nucleated RBC x10^3/uL Nucleated RBC % /100WBC Bld Gas Analysis Time 0630 Sample Site A-LINE ABG pH 7.38 (7.35-7.45) ABG pCO2 37 (34-45) mmHg ABG pO2 62 L (80-100) mmHg ABG HCO3 21.5 L (22.0-26.0) mmol/L ABG Total CO2 22.6 (21.0-29.0) MMOL/L ABG O2 Saturation 92 L (94-98) % ABG Base Excess -3.3 L (-2.0-3.0) mmol/L Nick Test NOT APPLICABLE VBG pH 7.401 (7.31-7.41) Ionized Calcium 1.05 L (1.15-1.33) mmol/L Respiration Rate 14 b/min O2 Delivery Device VENTILATOR Vent Mode SIMV FiO2 35.00 Tidal Volume 600 mL PEEP 5 cmH2O Pressure Support Vent 10 cmH2O Sodium 134 L (135-145) mmol/L Potassium 3.6 (3.5-5.0) mmol/L Chloride 103 (101-111) mmol/L Carbon Dioxide 22 (21-32) mmol/L Anion Gap 9.0 (6-13) BUN 20 (6-20) mg/dL Creatinine 0.8 (0.6-1.2) mg/dL Estimated GFR (MDRD) 93 (>89) Glucose 223 H (70-100) mg/dL POC Whole Bld Glucose (70 - 100) mg/dL Calcium 7.5 L (8.5-10.3) mg/dL Phosphorus 1.7 L (2.5-4.6) mg/dL Magnesium 2.0 (1.7-2.8) mg/dL Total Bilirubin 0.6 (0.2-1.0) mg/dL AST 34 (10-42) IU/L ALT 20 (10-60) IU/L Alkaline Phosphatase 39 L (42-121) IU/L Total Protein 5.1 L (6.7-8.2) g/dL Albumin 2.4 L (3.2-5.5) g/dL Globulin 2.7 (2.1-4.2) g/dL Albumin/Globulin Ratio 0.9 L (1.0-2.2) 04/19/20 04/19/20 04/18/20 Range/Units 04:20 00:06 18:45 WBC 5.0 (4.8-10.8) x10^3/uL RBC 2.98 L (4.70-6.10) 10^6/uL Hgb 9.8 L (14.0-18.0) g/dL Hct 29.2 L (42.0-52.0) % MCV 98.0 H (80.0-94.0) fL MCH 32.9 H (27.0-31.0) pg MCHC 33.6 (32.0-36.0) g/dL RDW 12.9 (12.0-15.0) % Plt Count 77 L (130-450) 10^3/uL MPV 11.8 H (7.4-11.4) fL Neut # (Auto) 3.8 (1.5-6.6) 10^3/uL Lymph # (Auto) 0.8 L (1.5-3.5) 10^3/uL Roosevelt # (Auto) 0.3 (0.0-1.0) 10^3/uL Eos # (Auto) 0.0 (0.0-0.7) 10^3/uL Baso # (Auto) 0.0 (0.0-0.1) 10^3/uL Absolute Nucleated RBC 0.00 x10^3/uL Nucleated RBC % 0.0 /100WBC Bld Gas Analysis Time 1856 Sample Site A-LINE ABG pH 7.32 L (7.35-7.45) ABG pCO2 46 H (34-45) mmHg ABG pO2 116 H (80-100) mmHg ABG HCO3 23.0 (22.0-26.0) mmol/L ABG Total CO2 24.4 (21.0-29.0) MMOL/L ABG O2 Saturation 98 (94-98) % ABG Base Excess -3.1 L (-2.0-3.0) mmol/L Nick Test NOT APPLICABLE VBG pH (7.31-7.41) Ionized Calcium (1.15-1.33) mmol/L Respiration Rate 14 b/min O2 Delivery Device VENTILATOR Vent Mode SIMV FiO2 35.00 Tidal Volume 600 mL PEEP 5 cmH2O Pressure Support Vent 10 cmH2O Sodium (135-145) mmol/L Potassium (3.5-5.0) mmol/L Chloride (101-111) mmol/L Carbon Dioxide (21-32) mmol/L Anion Gap (6-13) BUN (6-20) mg/dL Creatinine (0.6-1.2) mg/dL Estimated GFR (MDRD) (>89) Glucose (70-100) mg/dL POC Whole Bld Glucose 195 H (70 - 100) mg/dL Calcium (8.5-10.3) mg/dL Phosphorus (2.5-4.6) mg/dL Magnesium (1.7-2.8) mg/dL Total Bilirubin (0.2-1.0) mg/dL AST (10-42) IU/L ALT (10-60) IU/L Alkaline Phosphatase (42-121) IU/L Total Protein (6.7-8.2) g/dL Albumin (3.2-5.5) g/dL Globulin (2.1-4.2) g/dL Albumin/Globulin Ratio (1.0-2.2) 04/18/20 04/18/20 Range/Units 12:04 10:25 WBC (4.8-10.8) x10^3/uL RBC (4.70-6.10) 10^6/uL Hgb (14.0-18.0) g/dL Hct (42.0-52.0) % MCV (80.0-94.0) fL MCH (27.0-31.0) pg MCHC (32.0-36.0) g/dL RDW (12.0-15.0) % Plt Count (130-450) 10^3/uL MPV (7.4-11.4) fL Neut # (Auto) (1.5-6.6) 10^3/uL Lymph # (Auto) (1.5-3.5) 10^3/uL Roosevelt # (Auto) (0.0-1.0) 10^3/uL Eos # (Auto) (0.0-0.7) 10^3/uL Baso # (Auto) (0.0-0.1) 10^3/uL Absolute Nucleated RBC x10^3/uL Nucleated RBC % /100WBC Bld Gas Analysis Time 1030 Sample Site A-LINE ABG pH 7.36 (7.35-7.45) ABG pCO2 39 (34-45) mmHg ABG pO2 80 (80-100) mmHg ABG HCO3 21.4 L (22.0-26.0) mmol/L ABG Total CO2 22.6 (21.0-29.0) MMOL/L ABG O2 Saturation 95 (94-98) % ABG Base Excess -3.8 L (-2.0-3.0) mmol/L Nick Test NOT APPLICABLE VBG pH (7.31-7.41) Ionized Calcium (1.15-1.33) mmol/L Respiration Rate 14 b/min O2 Delivery Device VENTILATOR Vent Mode SIMV FiO2 35.00 Tidal Volume 600 mL PEEP 5 cmH2O Pressure Support Vent 10 cmH2O Sodium (135-145) mmol/L Potassium (3.5-5.0) mmol/L Chloride (101-111) mmol/L Carbon Dioxide (21-32) mmol/L Anion Gap (6-13) BUN (6-20) mg/dL Creatinine (0.6-1.2) mg/dL Estimated GFR (MDRD) (>89) Glucose (70-100) mg/dL POC Whole Bld Glucose 179 H (70 - 100) mg/dL Calcium (8.5-10.3) mg/dL Phosphorus (2.5-4.6) mg/dL Magnesium (1.7-2.8) mg/dL Total Bilirubin (0.2-1.0) mg/dL AST (10-42) IU/L ALT (10-60) IU/L Alkaline Phosphatase (42-121) IU/L Total Protein (6.7-8.2) g/dL Albumin (3.2-5.5) g/dL Globulin (2.1-4.2) g/dL Albumin/Globulin Ratio (1.0-2.2) Sepsis Event Note (H) - Evaluation Current Stage of Sepsis: Sepsis Possible source of Sepsis: positive: GI tract/intra-abdominal - Sepsis Criteria Sepsis Criteria: WBC count greater than 12,000 or less than 4000, Metabolic: lactate > 2 mmol/L Assessment/Plan - Problem List (1) Obstruction concurrent with and due to internal hernia of abdomen Impression: Exploratory laparotomy, Small bowel resection of 54 inches of necrotic ileum POD #3 Patient was left in discontinuity and with open abdomen. Second look laparotomy/reexploration POD#2. Dr. Williamson is managing surgical aspect. (2) Sepsis Impression: Likely multifactorial. Secondary to necrotic small bowel and pneumonia. Patient is on Zosyn. Will continue Patient appears stable. His white count is 5.0 today. Patient's urine output improved. He is off pressors. Qualifiers: Sepsis type: sepsis due to unspecified organism Sepsis acute organ dysfunction status: without acute organ dysfunction Qualified Code(s): A41.9 - Sepsis, unspecified organism (3) Respiratory failure Impression: 04/19/20 Patient tolerated a CPAP mode for over 1 hour today during weaning trial after sedation was discontinued. Patient's weaning trial parameters were: NIF was -27,Tidal volume 790 mils r espiration 13 1 hour after extubation the patient became agitated and required initiation of Precedex. His agitation progressed such that he required a dose of 1 mg of Versed IV x1 and soft wrist restraints. The Precedex drip was steadily titrated up to 1.1. At this time the patient became tachycardic with a heart rate in the 140s and his blood pressure was in the 150s systolic. The patient was given a dose of Lasix 40 mg IV x1 and placed on the BiPAP which cause significant relief and stabilization of his vitals. 04/18/20 Multifactorial. Patient appears to have pneumonia which is suspected to be secondary to aspiration. Chest x-ray done today showed bilateral basal opacities Patient also has a history of COPD and lung cancer with resection of right upper lobe And also appears volume overloaded. Patient is currently sedated with precedex, fentanyl and as needed Versed and intubated. Patient failed weaning trial today. Will attempt again tomorrow. Patient was ordered Lasix 40 mg IV twice daily x2 doses. Will reassess for continuation tomorrow. Fluids discontinued. We will monitor I's and O's. Later in the evening the patient's oxygen saturation with slowly dropped to the high 80s. As a result patient FiO2 was increased from 35 to 40%. The patient is maintained on SIMV mode. Qualifiers: Chronicity: acute Respiratory failure complication: hypoxia Qualified Code(s): J96.01 - Acute respiratory failure with hypoxia (4) Pneumonia Impression: Patient is on Zosyn. We will continue to monitor. (5) Electrolyte abnormality Impression: Patient is mildly hyponatremic with a sodium level of 128. This may be due to volume overload. Lasix 40 mg IV twice daily has been ordered. Patient was given 15mmol of potassium phosphate for a phosphorus level of 1.9. Patient was given 1 g of calcium gluconate for calcium level of 7.3. Continue to monitor electrolytes and replace accordingly. (6) Lactic acidosis Impression: Resolved (7) History of COPD Impression: On DuoNeb 4 times daily as needed. Currently on the BiPAP (8) History of lung cancer Impression: Currently on BiPAP (9) History of coronary artery disease Impression: Will resume patient's beta-raymundo when appropriate to do so
[2020-04-19] MEDS: CHLORHEXIDINE GLUCONATE 15 ML UDC PO SCH ×2 (08:44→21:04)
[2020-04-19] MEDS: SODIUM CHLORIDE 0.9% 500 ML IV PRN (08:50)
[2020-04-19] MEDS: HEPARIN 5,000 UNIT/ML VIAL SUBQ SCH ×2 (09:06→22:50)
--- NOTE | 2020-04-19 09:15 | XRAY Report ---
PROCEDURE: Chest 1 View X-Ray INDICATIONS: intubated, sedated, TECHNIQUE: One view of the chest was acquired. COMPARISON: Chest x-ray 04/18/2020 FINDINGS: It is noted that the patient is markedly rotated. This limits evaluation. Surgical changes and devices: Endotracheal tube, nasogastric tube and right-sided central venous cath eter unchanged. Lungs and pleura: Persistent appearance of mild effusions, right greater than left as well as patchy bibasilar opacities. Overall appearance is felt to be relatively unchanged compared to prior exam. Mediastinum: Mediastinal contours appear normal. Heart size is normal. Bones and chest wall: No suspicious bony lesions. Overlying soft tissues appear unremarkable. IMPRESSION: Relatively stable appearance of persistent bilateral effusions and bibasilar opacities. Support lines are stable. Reviewed by: Audra Beal MD on 04/19/2020 9:14 AM PST Approved by: Audra Beal MD on 04/19/2020 9:14 AM [facility] Station ID: [id number]
[2020-04-19 12:19] LABS: ABG PCO2 44 mmHg (34-45); ABG PH 7.34 (7.35-7.45); ABG PO2 109 mmHg (80-100)
[2020-04-19 12:20] LABS: ABG BASE EXCESS -2.6 mmol/L (-2.0-3.0); ABG HCO3 23.1 mmol/L (22.0-26.0); ABG OXYGEN SATURATION 98 % (94-98); ABG TCO2 24.4 MMOL/L (21.0-29.0)
[2020-04-19] MEDS: ACETAMINOPHEN 1,000 MG/100 ML 100 ML IV PRN (12:59)
[2020-04-19] MEDS ORDERED: FUROSEMIDE 40 MG/4 ML VIAL IVP STA (13:45)
[2020-04-19] MEDS ORDERED: MIDAZOLAM 2 MG/2 ML VIAL IVP ONE (13:45)
[2020-04-19] MEDS: SODIUM CHLORIDE FLUSH 0.9% 10 ML SYRINGE IVP PRN (13:55)
[2020-04-19 16:18] LABS: ABG BASE EXCESS -2.9 mmol/L (-2.0-3.0); ABG HCO3 23.3 mmol/L (22.0-26.0); ABG OXYGEN SATURATION 99 % (94-98); ABG PCO2 46 mmHg (34-45); ABG PH 7.32 (7.35-7.45); ABG PO2 140 mmHg (80-100); ABG TCO2 24.7 MMOL/L (21.0-29.0)
[2020-04-19] MEDS: TPN (CLINIMIX E 5/15) 2,000 ML with MULTIVITAMIN 10 ML, TRACE ELEMENTS V CONC 1 ML IV SCH ×3 (17:48)
[2020-04-19] MEDS: FAT EMULSION 20% 250 ML IV SCH (17:54)
[2020-04-20] MEDS: INSULIN REGULAR HUMAN 300 UNIT/3 ML VIAL SUBQ SCH ×5 (00:10→23:27)
[2020-04-20] MEDS: DEXMEDETOMIDINE 400 MCG/100 ML 100 ML IV PRN (01:49)
[2020-04-20] MEDS: SODIUM CHLORIDE FLUSH 0.9% 10 ML SYRINGE IVP SCH ×3 (02:05→17:39)
[2020-04-20] MEDS ORDERED: SODIUM CHLORIDE 0.9% 500 ML IV PRN (02:27)
[2020-04-20] MEDS: PIPERACILLIN/TAZOBACTAM 3.375 GM in SODIUM CHLORIDE 0.9% MINIBAG 100 ML IV SCH ×3 (03:32→19:56)
[2020-04-20] MEDS: fentaNYL 2,500 MCG/250 ML 2,500 MCG/250 ML BAG IV SCH ×2 (03:36→13:00)
[2020-04-20 05:06] LABS: VBG PH 7.376 (7.31-7.41)
[2020-04-20 05:18] LABS: MAGNESIUM 1.9 mg/dL (1.7-2.8)
[2020-04-20] MEDS: FUROSEMIDE 40 MG/4 ML VIAL IVP SCH ×2 (06:06→12:58)
[2020-04-20] MEDS: PANTOPRAZOLE 40 MG VIAL IVP SCH (06:30)
--- NOTE | 2020-04-20 07:52 | PROVIDER PROGRESS NOTE ---
Subjective - Prog Note Date Prog Note Date: 04/20/20 Prog Note Time: 08:00 - Subjective Pt reports feeling: Improved Subjective: Patient is doing better today. He is more awake and alert. He is able to tell me that he is in the hospital though he does not know the reason for his current hospital stay. He denies pain but is intermittently agitated. Objective - Vital Signs/Intake & Output Vital Signs: Vital Signs Temp Pulse Resp BP BP Pulse Ox 04/20/20 07:45 19 04/20/20 07:00 98.6 C H 68 16 177/77 H 155/80 H 100 04/20/20 06:00 75 26 H 166/78 H 148/76 H 100 04/20/20 05:00 72 21 162/72 H 141/80 H 100 04/20/20 04:00 72 17 140/81 H 136/76 H 100 Intake & Output: Intake & Output 04/17/20 04/18/20 04/19/20 04/20/20 23:59 23:59 23:59 23:59 Intake Total 5036.004 5536.071 5151.909 958.401 Output Total 1688 3794 4920 764 Balance 3348.004 1742.071 231.909 194.401 - Objective General Appearance: positive: Alert, Mild distress, Moderate distress Eyes Bilateral: positive: PERRL, EOMI ENT: positive: ENT inspection nml, No signs of dehydration Neck: positive: No JVD, Trachea midline Respiratory: positive: Other (Improved lung aeration today No overt wheezing or crackles noted.) Cardiovascular: positive: Regular rate & rhythm Abdomen: positive: Other (Will decrease bowel sounds. Decreased output per NG tube. Current site appreciable.) Back: positive: Nml inspection Skin: positive: Color nml, Warm, Dry Extremities: positive: Non-tender, Other (Generalized puffiness. Nonpitting edema) Neurologic/Psychiatric: positive: Other (Patient is oriented to self and place but not to reason for presentation.) - Lab Results Fish Bones: 04/19/20 04:20 04/20/20 03:45 Other Labs: Lab Results x24hrs 04/20/20 04/20/20 04/20/20 Range/Units 03:45 03:45 03:45 Bld Gas Analysis Time Sample Site ABG pH (7.35-7.45) ABG pCO2 (34-45) mmHg ABG pO2 (80-100) mmHg ABG HCO3 (22.0-26.0) mmol/L ABG Total CO2 (21.0-29.0) MMOL/L ABG O2 Saturation (94-98) % ABG Base Excess (-2.0-3.0) mmol/L Nick Test VBG pH 7.376 (7.31-7.41) Ionized Calcium 1.07 L (1.15-1.33) mmol/L O2 Delivery Device FiO2 PEEP cmH2O Pressure Support Vent cmH2O EPAP cmH2O IPAP cmH2O Potassium 3.5 (3.5-5.0) mmol/L POC Whole Bld Glucose (70 - 100) mg/dL Phosphorus 2.0 L (2.5-4.6) mg/dL Magnesium 1.9 (1.7-2.8) mg/dL 04/20/20 04/19/20 04/19/20 Range/Units 00:06 17:36 16:10 Bld Gas Analysis Time 1615 Sample Site A-LINE ABG pH 7.32 L (7.35-7.45) ABG pCO2 46 H (34-45) mmHg ABG pO2 140 H (80-100) mmHg ABG HCO3 23.3 (22.0-26.0) mmol/L ABG Total CO2 24.7 (21.0-29.0) MMOL/L ABG O2 Saturation 99 H (94-98) % ABG Base Excess -2.9 L (-2.0-3.0) mmol/L Nick Test NOT APPLICABLE VBG pH (7.31-7.41) Ionized Calcium (1.15-1.33) mmol/L O2 Delivery Device BiPAP FiO2 35.00 PEEP cmH2O Pressure Support Vent cmH2O EPAP 5 cmH2O IPAP 10 cmH2O Potassium (3.5-5.0) mmol/L POC Whole Bld Glucose 157 H 183 H (70 - 100) mg/dL Phosphorus (2.5-4.6) mg/dL Magnesium (1.7-2.8) mg/dL 04/19/20 04/19/20 Range/Units 12:12 11:25 Bld Gas Analysis Time 1212 Sample Site A-LINE ABG pH 7.34 L (7.35-7.45) ABG pCO2 44 (34-45) mmHg ABG pO2 109 H (80-100) mmHg ABG HCO3 23.1 (22.0-26.0) mmol/L ABG Total CO2 24.4 (21.0-29.0) MMOL/L ABG O2 Saturation 98 (94-98) % ABG Base Excess -2.6 L (-2.0-3.0) mmol/L Nick Test NOT APPLICABLE VBG pH (7.31-7.41) Ionized Calcium (1.15-1.33) mmol/L O2 Delivery Device VENTILATOR FiO2 35.00 PEEP 5 cmH2O Pressure Support Vent 12 cmH2O EPAP cmH2O IPAP cmH2O Potassium (3.5-5.0) mmol/L POC Whole Bld Glucose 179 H (70 - 100) mg/dL Phosphorus (2.5-4.6) mg/dL Magnesium (1.7-2.8) mg/dL Sepsis Event Note (H) - Evaluation Current Stage of Sepsis: Sepsis Possible source of Sepsis: positive: GI tract/intra-abdominal - Sepsis Criteria Sepsis Criteria: WBC count greater than 12,000 or less than 4000, Metabolic: lactate > 2 mmol/L Assessment/Plan - Problem List (1) Obstruction concurrent with and due to internal hernia of abdomen Impression: Exploratory laparotomy, Small bowel resection of 54 inches of necrotic ileum POD #4 Patient was left in discontinuity and with open abdomen. Second look laparotomy/reexploration POD#3. Dr. Williamson is managing surgical aspect. (2) Sepsis Impression: 04/20/20 Patient continues to improve daily. We will consider discontinuing IV antibiotics tomorrow after discussion with surgery. 04/19/20 Likely multifactorial. Secondary to necrotic small bowel and pneumonia. Patient is on Zosyn. Will continue Patient appears stable. His white count is 5.0 today. Patient's urine output improved. He is off pressors. Qualifiers: Sepsis type: sepsis due to unspecified organism Sepsis acute organ dysfunction status: without acute organ dysfunction Qualified Code(s): A41.9 - Sepsis, unspecified organism (3) Respiratory failure Impression: 04/20/20 Patient continues to improve daily. Precedex and fentanyl drips were discontinued today. Dilaudid 1 mg IV every 2 hours as needed for pain ordered. Ativan 0.5 mg IV every 4 hours as needed for anxiety ordered Patient was placed on BiPAP intermittently through out the day. He uses a CPAP at home and this will be initiated once his drops of his home device. We will continue the patient's Zosyn for today. We will consider discontinuing antibiotics tomorrow if cleared by surgery. 04/19/20 Patient tolerated a CPAP mode for over 1 hour today during weaning trial after sedation was discontinued. Patient's weaning trial parameters were: NIF was -27,Tidal volume 790 mils respiration 13 1 hour after extubation the patient became agitated and required initiation of Precedex. His agitation progressed such that he required a dose of 1 mg of Versed IV x1 a nd soft wrist restraints. The Precedex drip was steadily titrated up to 1.1. At this time the patient became tachycardic with a heart rate in the 140s and his blood pressure was in the 150s systolic. The patient was given a dose of Lasix 40 mg IV x1 and placed on the BiPAP which cause significant relief and stabilization of his vitals. 04/18/20 Multifactorial. Patient appears to have pneumonia which is suspected to be secondary to aspiration. Chest x-ray done today showed bilateral basal opacities Patient also has a history of COPD and lung cancer with resection of right upper lobe And also appears volume overloaded. Patient is currently sedated with precedex, fentanyl and as needed Versed and intubated. Patient failed weaning trial today. Will attempt again tomorrow. Patient was ordered Lasix 40 mg IV twice daily x2 doses. Will reassess for continuation tomorrow. Fluids discontinued. We will monitor I's and O's. Later in the evening the patient's oxygen saturation with slowly dropped to the high 80s. As a result patient FiO2 was increased from 35 to 40%. The patient is maintained on SIMV mode. Qualifiers: Chronicity: acute Respiratory failure complication: hypoxia Qualified Code(s): J96.01 - Acute respiratory failure with hypoxia (4) Pneumonia Impression: On Zosyn. Patient's respiratory status continues to do well since extubation. He is requiring intermittent BiPAP. However patient uses CPAP at home. Will resume his CPAP once the device is delivered by his . We will consider discontinuing antibiotics tomorrow. (5) Electrolyte abnormality Impression: Patient continues to improve. We will continue to monitor electrolytes and replace accordingly. (6) Lactic acidosis Impression: Resolved (7) History of COPD Impression: On DuoNeb 4 times daily as needed. On BiPAP intermittently (9) History of coronary artery disease Impression: 25mg Metoprolol succinate daily ordered (10) Hypertension Impression: Metoprolol titrate 5 mg IV every 6 hours scheduled ordered for today. Metoprolol succinate 25 mg p.o. daily ordered to start tomorrow morning. At that time the IV metoprolol will be discontinued. Hydralazine 10 mg IV every 4 hours as needed for systolic blood pressure greater than 160 ordered.
[2020-04-20] MEDS: POTASSIUM CHLOR 20 MEQ/100 ML 20 MEQ/100 ML BAG IV SCH ×2 (08:36→09:51)
[2020-04-20 08:39] LABS: PREALBUMIN 12 mg/dL (18-45)
[2020-04-20] MEDS: CHLORHEXIDINE GLUCONATE 15 ML UDC PO SCH ×2 (08:59→20:57)
[2020-04-20] MEDS ORDERED: POTASSIUM PHOSPHATE 15 MMOL in SODIUM CHLORIDE 0.9% 250 ML IV ONE (09:00)
[2020-04-20] MEDS: HEPARIN 5,000 UNIT/ML VIAL SUBQ SCH ×2 (09:01→20:57)
[2020-04-20] MEDS: ACETAMINOPHEN 1,000 MG/100 ML 100 ML IV PRN ×2 (10:40→20:41)
[2020-04-20] MEDS: SODIUM CHLORIDE FLUSH 0.9% 10 ML SYRINGE IVP PRN (11:11)
--- NOTE | 2020-04-20 13:01 | PROVIDER PROGRESS NOTE ---
Progress Note Subjective 80-year-old male who presents with multiple comorbid states including CAD, SC, status post multiple cardiac stents, morbid obesity who was evaluated in the emergency room for nearly 12 hours of abdominal pain and CT findings notable for internal herniation; patient taken emergently for below listed procedure and noted for 54 inches of necrotic ileum for which damage control laparotomy was undertaken with resection, discontinuity, and open abdominal dressing. INDEX Procedure Performed: 1. Exploratory laparotomy 2. Lysis of adhesions 3. Partial omentectomy 4. Small bowel resection with discontinuity 5. Abdominal washout 6. Wide drainage 7. Open abdomen 8. Right internal jugular triple-lumen catheter 9. Right femoral arterial line 10. Open appendectomy In the interim patient has been weaned significantly off Daniel-Synephrine. Vasopressin weaned. Patient has normalized for heart rate. Normalized lactic acidosis. Yesterday, status post: Procedure Performed: 1. Second look laparotomy/re-exploration 2. Small bowel resection 3. Small bowel anastomosis 4. Abdominal washout 5. Wide local drainage 6. Closure of mesenteric defect 7. Possible ventral hernia repair INTERIM: A. Patient had ultimately been weaned off of pressors; initially required phenylephrine which was augmented with vasopressin; ultimately these were both weaned without any complication. Next B. Patient was ultimately transitioned from propofol to Precedex in anticipation of ventilatory weaning and planned extubation. Patient was maintained on fentanyl for analgesia. C. Patient was maintained for endotracheal tube was attempted for extubation on postoperative day #1 following the patient's second operative/reoperative intervention. Secondary to agitation this was deferred. D. Patient ultimately has been extubated with no complication and is required CPAP for support which he has used at home. E. No bowel function as of yet however more awake and more alert. Had been maintained on Precedex post extubation for agitation however this has improved. F. Family has been made aware of the patient's slow progress in recovery on a daily basis. Objective Afebrile hemodynamically acceptable Patient sedated but arousable and following basic commands No acute distress resting comfortably in bed; intubated and sedated Lungs clear to auscultation bilaterally no wheezes rales or rhonchi Radial pulses palpable bilaterally with good capillary refill Abdomen soft nontender nondistended no rebound no guarding Dressing clean dry and intact. Martin drains serosanguineous. Moving all extremities with no sensorimotor deficits Cranial nerves II through XII grossly intact Assessment and plan: 80-year-old male postoperative day #3 status post second look laparotomy/damage control surgery with episcopalian of bowel continuity and abdominal closure of fascial defect. Presented with ischemic bowel/necrotic ileum from internal joni iation. Multiple comorbid states. Septic shock. Plan going forward is as follows: (1) GI - hold intravenous fluid given fluid retention, continue parenteral nutrition and fluid concentrate, anticipate prolonged ileus thus will defer trickle feeds by nasogastric tube until certain patient candidate stabilized from respiratory standpoint. Will consider exchange for Dobbhoff tube once weaned from ventilator. (2) SURGERY - Continue MARTIN X2. Abdominal binder. Wound care continue packing midline wound in several days; will perform tomorrow first packing change. (3) Renal/Lytes - continue to hold IVF and fluid restrict TPN. Renal indices within normal limits. Continue Diuresis. (4) Respiratory - S/P extubation. Would recommend continued diuresis given positive retention in the setting of significant resuscitation. Discussed with hospitalist. Maintain antibiotics for presumptive infiltrates. CPAP as necessary. (5) Heme - Will continue with mechanical DVT ppx. H/H stable. Thrombocytopenia; will follow and hold chemical ppx for the time being. (6) Cardiovascular - HD acceptable. Maintained off pressors. We will plan diuresis. We will discontinue the right femoral arterial line. (7) Neuro - Continue restraints. Continue pain management with fentanyl. Wean Precedex. (8) continue ICU level of care, continue to greatly appreciate the hospitalist input with regard to this complex patient. (9) ENDOCRINOLOGY - continue insulin sliding scale. (10) Infectious Disease - continue Zosyn for broad coverage. Leave midline wound open. Antibiotic should also cover concern for pulmonary infiltrates. Leukocytosis resolved. Inflammatory markers resolved. Continue current management. (11) we will order physical therapy and Occupational Therapy.
[2020-04-20] MEDS: METOPROLOL 5 MG/5 ML VIAL IVP SCH ×3 (13:30→23:24)
[2020-04-20 13:39] LABS: MAGNESIUM 1.5 mg/dL (1.7-2.8); PHOSPHORUS 2.7 mg/dL (2.5-4.6)
[2020-04-20] MEDS ORDERED: MAGNESIUM SULFATE 2 GRAM 2 GM/50 ML BAG IV ONE (13:43)
[2020-04-20] MEDS ORDERED: LORazepam 2 MG/ML VIAL IVP PRN (17:24)
[2020-04-20] MEDS: hydrALAZINE INJ 20 MG/ML VIAL IVP PRN (17:50)
[2020-04-20] MEDS: HYDROmorphone 1 MG/ML CARPUJECT IVP PRN ×3 (18:11→22:32)
[2020-04-20] MEDS: FAT EMULSION 20% 250 ML IV SCH (19:50)
[2020-04-20] MEDS: TPN (CLINIMIX E 5/15) 2,000 ML with MULTIVITAMIN 10 ML, TRACE ELEMENTS V CONC 1 ML IV SCH ×3 (19:50)
[2020-04-20] MEDS: ZINC OXIDE 20% OINT 30 GM TUBE TOP PRN (19:59)
[2020-04-20] MEDS: SODIUM CHLORIDE 0.9% 500 ML IV PRN (20:00)
[2020-04-21] MEDS: KETOROLAC 30 MG/ML VIAL IVP PRN ×2 (00:36→09:55)
[2020-04-21] MEDS: SODIUM CHLORIDE FLUSH 0.9% 10 ML SYRINGE IVP SCH ×3 (00:37→16:52)
[2020-04-21] MEDS: HYDROmorphone 1 MG/ML CARPUJECT IVP PRN ×5 (00:52→20:53)
[2020-04-21] MEDS: PIPERACILLIN/TAZOBACTAM 3.375 GM in SODIUM CHLORIDE 0.9% MINIBAG 100 ML IV SCH (04:09)
[2020-04-21] MEDS: SODIUM CHLORIDE FLUSH 0.9% 10 ML SYRINGE IVP PRN (04:13)
[2020-04-21 05:20] LABS: BASOPHILS % (AUTO) 0.3 %; EOSINOPHILS # (AUTO) 0.1 10^3/uL (0.0-0.7); EOSINOPHILS % (AUTO) 1.6 %; HGB - HEMOGLOBIN 10.5 g/dL (14.0-18.0); LYMPHOCYTES # (AUTO) 0.7 10^3/uL (1.5-3.5); LYMPHOCYTES % (AUTO) 9.7 %; MEAN CORPUSCULAR HEMOGLOBIN 32.8 pg (27.0-31.0); MEAN CORPUSCULAR HGB CONC 34.1 g/dL (32.0-36.0); MEAN CORPUSCULAR VOLUME 96.3 fL (80.0-94.0); MEAN PLATELET VOLUME 10.8 fL (7.4-11.4); MONOCYTES # (AUTO) 0.6 10^3/uL (0.0-1.0); MONOCYTES % (AUTO) 8.8 %; NEUTROPHILS # (AUTO) 5.3 10^3/uL (1.5-6.6); PLT - PLATELET COUNT 142 10^3/uL (130-450); RED CELL DISTRIBUTION WIDTH 12.5 % (12.0-15.0); WHITE BLOOD COUNT 6.8 x10^3/uL (4.8-10.8)
[2020-04-21 05:28] LABS: ALBUMIN 2.9 g/dL (3.2-5.5); ALBUMIN/GLOBULIN RATIO 0.9 (1.0-2.2); BILIRUBIN,TOTAL 1.1 mg/dL (0.2-1.0); CALCIUM 8.1 mg/dL (8.5-10.3); CREATININE 0.7 mg/dL (0.6-1.2); MAGNESIUM 2.2 mg/dL (1.7-2.8); PHOSPHORUS 2.3 mg/dL (2.5-4.6); TOTAL PROTEIN 6.1 g/dL (6.7-8.2)
[2020-04-21] MEDS: POTASSIUM CHLOR 20 MEQ/100 ML 20 MEQ/100 ML BAG IV SCH ×2 (05:56→06:56)
[2020-04-21] MEDS: METOPROLOL 5 MG/5 ML VIAL IVP SCH ×3 (06:01→18:50)
[2020-04-21] MEDS: INSULIN REGULAR HUMAN 300 UNIT/3 ML VIAL SUBQ SCH ×4 (06:06→23:47)
[2020-04-21] MEDS: PANTOPRAZOLE 40 MG VIAL IVP SCH (06:32)
[2020-04-21] MEDS ORDERED: POTASSIUM PHOSPHATE 15 MMOL in SODIUM CHLORIDE 0.9% 250 ML IV ONE (08:00)
--- NOTE | 2020-04-21 08:58 | PROVIDER PROGRESS NOTE ---
Assessment/Plan - Problem List (1) Obstruction concurrent with and due to internal hernia of abdomen Assessment/Plan: Exploratory laparotomy, Small bowel resection of 54 inches of necrotic ileum POD #4 Patient was left in discontinuity and with open abdomen. Second look laparotomy/reexploration POD#3. Dr. Williamson is managing surgical aspect. (2) Sepsis Qualifiers: Sepsis type: sepsis due to unspecified organism Sepsis acute organ dysfunction status: without acute organ dysfunction Qualified Code(s): A41.9 - Sepsis, unspecified organism Assessment/Plan: 04/21/20 Patient continues to do well. Antibiotics discontinued today. Tube feeds to start tomorrow. 04/20/20 Patient continues to improve daily. We will consider discontinuing IV antibiotics tomorrow after discussion with surgery. 04/19/20 Likely multifactorial. Secondary to necrotic small bowel and pneumonia. Patient is on Zosyn. Will continue Patient appears stable. His white count is 5.0 today. Patient's urine output improved. He is off pressors. (3) Respiratory failure Qualifiers: Chronicity: acute Respiratory failure complication: hypoxia Qualified Code(s): J96.01 - Acute respiratory failure with hypoxia Assessment/Plan: 04/21/2020 Patient continues to do well. He is on CPAP intermittently. We will continue to monitor 04/20/20 Patient continues to improve daily. Precedex and fentanyl drips were discontinued today. Dilaudid 1 mg IV every 2 hours as needed for pain ordered. Ativan 0.5 mg IV every 4 hours as needed for anxiety ordered Patient was placed on BiPAP intermittently through out the day. He uses a CPAP at home and this will be initiated once his drops of his home device. We will continue the patient's Zosyn for today. We will consider discontinuing antibiotics tomorrow if cleared by surgery. 04/19/20 Patient tolerated a CPAP mode for over 1 hour today during weaning trial after sedation was discontinued. Patient's weaning trial parameters were: NIF was -27,Tidal volume 790 mils respiration 13 1 hour after extubation the patient became agitated and required initiation of Precedex. His agitation progressed such that he required a dose of 1 mg of Versed IV x1 and soft wrist restraints. The Precedex drip was steadily titrated up to 1.1. At this time the patient became tachycardic with a heart rate in the 140s and his blood pressure was in the 150s systolic. The patient was given a dose of Lasix 40 mg IV x1 and placed on the BiPAP which cause significant relief and stabilization of his vitals. 04/18/20 Multifactorial. Patient appears to have pneumonia which is suspected to be secondary to aspiration. Chest x-ray done today showed bilateral basal opacities Patient also has a history of COPD and lung cancer with resection of right upper lobe And also appears volume overloaded. Patient is currently sedated with precedex, fentanyl and as needed Versed and intubated. Patient failed weaning trial today. Will attempt again tomorrow. Patient was ordered Lasix 40 mg IV twice daily x2 doses. Will reassess for continuation tomorrow. Fluids discontinued. We will monitor I's and O's. Later in the evening the patient's oxygen saturation with slowly dropped to the high 80s. As a result patient FiO2 was increased from 35 to 40%. The patient is maintained on SIMV mode. (4) Pneumonia Assessment/Plan: Resolved. Antibiotics discontinued today. Patient is on intermittent CPAP. We will continue. (5) Electrolyte abnormality Assessment/Plan: Patient continues to improve. We will continue to monitor electrolytes and replace accordingly. (6) Lactic acidosis Assessment/Plan: Resolved (7) History of COPD Assessment/Plan: On DuoNeb 4 times daily as needed. On CPAP intermittently (9) History of coronary artery disease Assessment/Plan: On metoprolol tartrate 5 mg IV every 6 hours. We will switch to 25 mg metoprolol succinate daily when patient is able to tolerate oral medication. (10) Hypertension Assessment/Plan: Patient systolic blood pressure has stayed higher than 160 most of the time. Patient is on metoprolol tartrate 5 mg IV every 6 hours scheduled. Patient's hydralazine dose was increased to 20 mg IV every 4 hours as needed for systolic blood pressure greater than 160. Patient is also receiving Lasix 40 mg IV twice daily for edema. We will continue to monitor. - Current Meds Current Meds: Current Medications Generic Name Dose Route Start Last Admin Trade Name Freq PRN Reason Stop Dose Admin Albuterol/Ipratropium 3 ml 04/18/20 07:35 04/18/20 15:20 Ipratropium/Albuterol 3 Ml Neb INH 3 ml RTQID PRN Administration Wheezing Chlorhexidine Gluconate 15 ml 04/16/20 09:00 04/20/20 20:57 Chlorhexidine Gluconate 15 Ml Udc PO Not Given BID [facility] Heparin Sodium (Porcine) 5,000 unit 04/16/20 09:00 04/20/20 20:57 Heparin 5,000 Unit/Ml Vial SUBQ Not Given BID [facility] Hydralazine HCl 10 mg 04/20/20 17:14 04/20/20 17:50 Hydralazine Inj 20 Mg/Ml Vial IVP 10 mg Q4H PRN Administration PER PHYSICIAN ORDER Hydromorphone HCl 1 mg 04/20/20 17:22 04/21/20 04:08 Hydromorphone 1 Mg/Ml Carpuject IVP 1 mg Q2HR PRN Administration PAIN Piperacillin Sod/Tazobactam 100 mls @ 25 mls/hr 04/17/20 11:32 04/21/20 04:09 Sod 3.375 gm/ Sodium Chloride IV 25 mls/hr Q8H [facility] Administration Multivitamins 10 ml/ Chromium/ 2,011 mls @ 63 mls/hr 04/17/20 19:00 04/21/20 07:00 Copper/Manganese/Seleni/Zn 1 IV 63 mls/hr ml/ Amino Ac/Electrol/Dextrose TPN/PPN [facility] Infusion /Calcium Protocol Fat Emulsion Intravenous 250 mls @ 21 mls/hr 04/17/20 19:00 04/21/20 07:45 Intralipid 20% IV Infused Q24H [facility] Infusion Sodium Chloride 500 mls @ 0 mls/hr 04/18/20 20:52 04/21/20 07:00 Normal Saline 0.9% IV 20 mls/hr Q24H PRN Infusion TKO RATE TKO Acetaminophen 100 mls @ 400 mls/hr 04/19/20 12:33 04/20/20 21:00 Ofirmev IV Infused Q6HR PRN Infusion Pain or fever Insulin Human Regular 3 - 11 unit 04/19/20 12:00 04/21/20 06:06 Insulin Regular Human 300 Unit/3 Ml Vial SUBQ 5 unit Q6HR [facility] Administration Protocol Ketorolac Tromethamine 30 mg 04/21/20 00:08 04/21/20 00:36 Ketorolac 30 Mg/Ml Vial IVP 04/26/20 00:07 30 mg Q6HR PRN Administration PAIN Lorazepam 0.5 mg 04/20/20 17:24 04/20/20 21:35 Lorazepam 2 Mg/Ml Vial IVP 0.5 mg Q4H PRN Administration Anxiety Metoprolol Tartrate 5 mg 04/20/20 13:00 04/21/20 06:01 Metoprolol 5 Mg/5 Ml Vial IVP 5 mg Q6HR [facility]I Administration Multi-Ingredient Ointment 1 applic 04/18/20 03:24 04/20/20 19:59 Zinc Oxide 20% Oint 30 Gm Tube TOP 1 applic PRN PRN Administration Skin Care Pantoprazole Sodium 40 mg 04/16/20 07:00 04/21/20 06:32 Pantoprazole 40 Mg Vial IVP 40 mg QDAC MAGI Administration Sodium Chloride 10 ml 04/16/20 09:00 04/21/20 00:37 Sodium Chloride Flush 0.9% 10 Ml Syringe IVP 10 ml 0100,0900,1700 MAGI Administration Sodium Chloride 10 ml 04/16/20 01:56 04/21/20 04:13 Sodium Chloride Flush 0.9% 10 Ml Syringe IVP 30 ml PRN PRN Administration NEEDED PER PROVIDER ORDERS - Lab Result Fish Bone Diagrams: 04/21/20 04:10 04/21/20 04:10 - Additional Planning My Orders: My Active Orders 04/20/20 13:00 Metoprolol Inj [Lopressor Inj] 5 mg IVP Q6HR 04/20/20 14:35 Initiate NonViolent Restraint [RC] .PerProtocol 04/20/20 17:14 hydrALAZINE INJ [Apresoline Inj] 10 mg IVP Q4H PRN 04/20/20 17:22 HYDROmorphone 1MG CARP [Dilaudid Inj Carp] 1 mg IVP Q2HR PRN 04/20/20 17:24 LORazepam INJ [Ativan Inj (Vial)] 0.5 mg IVP Q4H PRN Subjective - Subjective Patient Reports: Other (Continues to do well. He is alert awake oriented x3. He denies any significant pain) Objective Vital Signs: Vital Signs - 24 hr 04/20/20 04/20/20 04/20/20 09:00 10:00 11:00 Temperature 36.8 C Heart Rate Heart Rate [83] Heart Rate [ 73 83 93 Monitoring electrodes] Respiratory 19 20 21 Rate Blood Pressure Blood Pressure 168/80 H [Femoral artery ] Blood Pressure 166/66 H 172/93 H 183/87 H [Right Brachial artery] O2 Saturation 98 98 93 04/20/20 04/20/20 04/20/20 12:00 13:00 13:10 Temperature 37.0 C Heart Rate 97 Heart Rate [83] Heart Rate [ 86 99 Monitoring electrodes] Respiratory 16 22 Rate Blood Pressure Blood Pressure [Femoral artery ] Blood Pressure 160/91 H 184/97 H [Right Brachial artery] O2 Saturation 99 98 04/20/20 04/20/20 04/20/20 13:30 14:00 15:00 Temperature Heart Rate Heart Rate [83] Heart Rate [ 71 78 Monitoring electrodes] Respiratory 19 20 Rate Blood Pressure 184/97 H Blood Pressure [Femoral artery ] Blood Pressure 176/98 H 164/98 H [Right Brachial artery] O2 Saturation 98 97 04/20/20 04/20/20 04/20/20 16:00 17:00 17:50 Temperature 36.9 C Heart Rate Heart Rate [83] Heart Rate [ 85 87 Monitoring electrodes] Respiratory 19 20 Rate Blood Pressure 183/87 H Blood Pressure [Femoral artery ] Blood Pressure 168/88 H 183/87 H [Right Brachial artery] O2 Saturation 98 95 04/20/20 04/20/20 04/20/20 17:57 18:00 18:08 Temperature Heart Rate Heart Rate [83] 83 74 Heart Rate [ 83 Monitoring electrodes] Respiratory 19 20 Rate Blood Pressure 162/82 H Blood Pressure [Femoral artery ] Blood Pressure 170/92 H 162/82 H [Right Brachial artery] O2 Saturation 97 97 04/20/20 04/20/20 04/20/20 18:15 18:30 19:00 Temperature Heart Rate Heart Rate [83] 70 71 Heart Rate [ 70 Monitoring electrodes] Respiratory 16 17 16 Rate Blood Pressure 128/72 Blood Pressure [Femoral artery ] Blood Pressure 128/72 135/87 H 148/77 H [Right Brachial artery] O2 Saturation 97 97 97 04/20/20 04/20/20 04/20/20 20:00 21:00 22:00 Temperature 36.6 C Heart Rate Heart Rate [83] Heart Rate [ 72 76 69 Monitoring electrodes] Respiratory 20 20 15 Rate Blood Pressure Blood Pressure [Femoral artery ] Blood Pressure 164/86 H 159/80 H 144/71 H [Right Brachial artery] O2 Saturation 98 97 95 04/20/20 04/20/20 04/20/20 23:00 23:24 23:26 Temperature Heart Rate Heart Rate [83] Heart Rate [ 75 71 Monitoring electrodes] Respiratory 22 Rate Blood Pressure 163/83 H Blood Pressure [Femoral artery ] Blood Pressure 163/83 H 145/75 H [Right Brachial artery] O2 Saturation 94 04/20/20 04/20/20 04/20/20 23:30 23:35 23:40 Temperature Heart Rate Heart Rate [83] Heart Rate [ 65 66 68 Monitoring electrodes] Respiratory Rate Blood Pressure Blood Pressure [Femoral artery ] Blood Pressure 156/74 H 135/76 H 143/90 H [Right Brachial artery] O2 Saturation 04/20/20 04/21/20 04/21/20 23:50 00:00 00:16 Temperature 36.9 C Heart Rate Heart Rate [83] Heart Rate [ 66 64 66 Monitoring electrodes] Respiratory 17 Rate Blood Pressure Blood Pressure [Femoral artery ] Blood Pressure 145/74 H 137/76 H 140/78 H [Right Brachial artery] O2 Saturation 93 04/21/20 04/21/20 04/21/20 01:03 02:00 03:00 Temperature Heart Rate Heart Rate [83] Heart Rate [ 61 65 69 Monitoring electrodes] Respiratory 15 16 18 Rate Blood Pressure Blood Pressure [Femoral artery ] Blood Pressure 136/81 H 145/85 H 153/77 H [Right Brachial artery] O2 Saturation 95 94 92 04/21/20 04/21/20 04/21/20 04:00 05:00 06:00 Temperature 36.8 C Heart Rate Heart Rate [83] Heart Rate [ 72 66 70 Monitoring electrodes] Respiratory 18 13 16 Rate Blood Pressure Blood Pressure [Femoral artery ] Blood Pressure 156/87 H 154/80 H 167/93 H [Right Brachial artery] O2 Saturation 100 100 99 04/21/20 04/21/20 04/21/20 06:01 06:05 06:10 Temperature Heart Rate Heart Rate [83] Heart Rate [ 61 58 L Monitoring electrodes] Respiratory Rate Blood Pressure 167/93 H Blood Pressure [Femoral artery ] Blood Pressure 147/82 H 151/78 H [Right Brachial artery] O2 Saturation 04/21/20 04/21/20 04/21/20 06:15 06:20 06:30 Temperature Heart Rate Heart Rate [83] Heart Rate [ 58 L 66 62 Monitoring electrodes] Respiratory Rate Blood Pressure Blood Pressure [Femoral artery ] Blood Pressure 150/85 H 168/96 H 152/87 H [Right Brachial artery] O2 Saturation 04/21/20 04/21/20 04/21/20 06:45 07:00 08:00 Temperature 35.9 C L Heart Rate Heart Rate [83] Heart Rate [ 60 67 68 Monitoring electrodes] Respiratory 18 17 Rate Blood Pressure Blood Pressure [Femoral artery ] Blood Pressure 162/92 H 168/98 H 184/93 H [Right Brachial artery] O2 Saturation 100 100 Oxygen O2 Source Patient supplied BIPAP I&O (Last 24 Hrs): Intake and Output Totals x24h 04/19/20 04/20/20 04/21/20 23:59 23:59 23:59 Intake Total 5151.909 4159.739 1040.5 Output Total 4920 6704 610 Balance 231.909 -2544.261 430.5 General: Alert, Oriented x3, Mild distress, Moderate distress HEENT: Atraumatic, PERRLA, EOMI Neck: Supple, No JVD Neuro: Alert, Non Focal, Oriented Times 3 Cardiovascular: Regular rate Respiratory: No respiratory distress, Breath sounds nml Abdomen: Other (Slightly improved bowel sounds when compared to yesterday. Abdomen is protuberant. No guarding or rebound tenderness. Surgical site is appreciable. No drainage from site.) Extremities: Other (Generalized puffiness. Nonpitting edema.) Skin: No rashes - Results Results: Laboratory Results WBC 6.8 x10^3/uL (4.8-10.8) 04/21/20 04:10 RBC 3.20 10^6/uL (4.70-6.10) L 04/21/20 04:10 Hgb 10.5 g/dL (14.0-18.0) L 04/21/20 04:10 Hct 30.8 % (42.0-52.0) L 04/21/20 04:10 MCV 96.3 fL (80.0-94.0) H 04/21/20 04:10 MCH 32.8 pg (27.0-31.0) H 04/21/20 04:10 MCHC 34.1 g/dL (32.0-36.0) 04/21/20 04:10 RDW 12.5 % (12.0-15.0) 04/21/20 04:10 Plt Count 142 10^3/uL (130-450) 04/21/20 04:10 MPV 10.8 fL (7.4-11.4) 04/21/20 04:10 Neut # (Auto) 5.3 10^3/uL (1.5-6.6) 04/21/20 04:10 Lymph # (Auto) 0.7 10^3/uL (1.5-3.5) L 04/21/20 04:10 [place] # (Auto) 0.6 10^3/uL (0.0-1.0) 04/21/20 04:10 Eos # (Auto) 0.1 10^3/uL (0.0-0.7) 04/21/20 04:10 Baso # (Auto) 0.0 10^3/uL (0.0-0.1) 04/21/20 04:10 Absolute Nucleated RBC 0.00 x10^3/uL 04/21/20 04:10 Nucleated RBC % 0.0 /100WBC 04/21/20 04:10 Bld Gas Analysis Time 1615 04/19/20 16:10 Sample Site A-LINE 04/19/20 16:10 ABG pH 7.32 (7.35-7.45) L 04/19/20 16:10 ABG pCO2 46 mmHg (34-45) H 04/19/20 16:10 ABG pO2 140 mmHg (80-100) H 04/19/20 16:10 ABG HCO3 23.3 mmol/L (22.0-26.0) 04/19/20 16:10 ABG Total CO2 24.7 MMOL/L (21.0-29.0) 04/19/20 16:10 ABG O2 Saturation 99 % (94-98) H 04/19/20 16:10 ABG Base Excess -2.9 mmol/L (-2.0-3.0) L 04/19/20 16:10 Nick Test NOT APPLICABLE 04/19/20 16:10 VBG pH 7.376 (7.31-7.41) 04/20/20 03:45 Ionized Calcium 1.07 mmol/L (1.15-1.33) L 04/20/20 03:45 Respiration Rate 14 b/min 04/19/20 06:25 O2 Delivery Device BiPAP 04/19/20 16:10 Vent Mode SIMV 04/19/20 06:25 FiO2 35.00 04/19/20 16:10 Tidal Volume 600 mL 04/19/20 06:25 PEEP 5 cmH2O 04/19/20 12:12 Pressure Support Vent 12 cmH2O 04/19/20 12:12 EPAP 5 cmH2O 04/19/20 16:10 IPAP 10 cmH2O 04/19/20 16:10 Sodium 136 mmol/L (135-145) 04/21/20 04:10 Potassium 3.4 mmol/L (3.5-5.0) L 04/21/20 04:10 Chloride 100 mmol/L (101-111) L 04/21/20 04:10 Carbon Dioxide 29 mmol/L (21-32) 04/21/20 04:10 Anion Gap 7.0 (6-13) 04/21/20 04:10 BUN 22 mg/dL (6-20) H 04/21/20 04:10 Creatinine 0.7 mg/dL (0.6-1.2) 04/21/20 04:10 Estimated GFR (MDRD) 108 (>89) 04/21/20 04:10 Glucose 185 mg/dL (70-100) H 04/21/20 04:10 POC Whole Bld Glucose 192 mg/dL (70 - 100) H 04/21/20 06:03 Lactic Acid 1.4 mmol/L (0.5-2.2) 04/17/20 21:54 Calcium 8.1 mg/dL (8.5-10.3) L 04/21/20 04:10 Phosphorus 2.3 mg/dL (2.5-4.6) L 04/21/20 04:10 Magnesium 2.2 mg/dL (1.7-2.8) 04/21/20 04:10 Total Bilirubin 1.1 mg/dL (0.2-1.0) H 04/21/20 04:10 AST 58 IU/L (10-42) H 04/21/20 04:10 ALT 33 IU/L (10-60) 04/21/20 04:10 Alkaline Phosphatase 66 IU/L (42-121) 04/21/20 04:10 Troponin I High Sens 13.4 ng/L (2.3-19.7) 04/16/20 02:25 Total Protein 6.1 g/dL (6.7-8.2) L 04/21/20 04:10 Albumin 2.9 g/dL (3.2-5.5) L 04/21/20 04:10 Globulin 3.2 g/dL (2.1-4.2) 04/21/20 04:10 Albumin/Globulin Ratio 0.9 (1.0-2.2) L 04/21/20 04:10 Prealbumin 12 mg/dL (18-45) L 04/20/20 03:45 Triglycerides 106 mg/dL (-149) 04/20/20 03:45 Lipase 13 U/L (22-51) L 04/15/20 18:40 Vitamin B12 244 pg/mL (180-914) 04/20/20 03:45 Nasal Adenovirus (PCR) NOT DETECTED 04/15/20 20:15 Nasal B. parapertussis DNA (PCR) NOT DETECTED 04/15/20 20:15 Nasal Coronavir 229E PCR NOT DETECTED 04/15/20 20:15 Nasal Coronavir HKU1 PCR NOT DETECTED 04/15/20 20:15 Nasal Coronavir NL63 PCR NOT DETECTED 04/15/20 20:15 Nasal Coronavir OC43 PCR NOT DETECTED 04/15/20 20:15 Nasal Enterovir/Rhinovir PCR NOT DETECTED 04/15/20 20:15 Nasal Influenza B PCR NOT DETECTED 04/15/20 20:15 Nasal Influenza A PCR NOT DETECTED 04/15/20 20:15 Nasal Parainfluen 1 PCR NOT DETECTED 04/15/20 20:15 Nasal Parainfluen 2 PCR NOT DETECTED 04/15/20 20:15 Nasal Parainfluen 3 PCR NOT DETECTED 04/15/20 20:15 Nasal Parainfluen 4 PCR NOT DETECTED 04/15/20 20:15 Nasal RSV (PCR) NOT DETECTED 04/15/20 20:15 Nasal Screen MRSA (PCR) NEGATIVE (NEGATIVE) 04/16/20 02:25 Nasal B.pertussis DNA PCR NOT DETECTED 04/15/20 20:15 Nasal C.pneumoniae (PCR) NOT DETECTED 04/15/20 20:15 Rashaad Human Metapneumo PCR NOT DETECTED 04/15/20 20:15 Nasal M.pneumoniae (PCR) NOT DETECTED 04/15/20 20:15 Nasal SARS-CoV-2 (PCR) NOT DETECTED 04/15/20 20:15 - Procedures Procedures: Procedures TOTAL KNEE REPLACEMENT (11/30/12) Sepsis Event Note (H) - Evaluation Current Stage of Sepsis: Sepsis Possible source of Sepsis: positive: GI tract/intra-abdominal - Sepsis Criteria Sepsis Criteria: WBC count greater than 12,000 or less than 4000, Metabolic: lactate > 2 mmol/L ABX Reporting Has patient been on IV antibiotics over the past 48 hours?: No
[2020-04-21] MEDS ORDERED: METOPROLOL SUCCINATE 25 MG TABLET PO SCH (09:00)
[2020-04-21] MEDS: HEPARIN 5,000 UNIT/ML VIAL SUBQ SCH ×2 (09:02→20:45)
[2020-04-21] MEDS: CHLORHEXIDINE GLUCONATE 15 ML UDC PO SCH ×2 (09:21→20:45)
[2020-04-21] MEDS: FUROSEMIDE 40 MG/4 ML VIAL IVP SCH ×2 (09:21→14:02)
[2020-04-21] MEDS: hydrALAZINE INJ 20 MG/ML VIAL IVP PRN ×2 (10:03→21:05)
[2020-04-21] MEDS ORDERED: TPN (CLINIMIX E 5/15) 2,000 ML with MULTIVITAMIN 10 ML, TRACE ELEMENTS V CONC 1 ML, POT... IV SCH ×4 (14:36)
[2020-04-21] MEDS: ACETAMINOPHEN 1,000 MG/100 ML 100 ML IV PRN (15:26)
[2020-04-21] MEDS: FAT EMULSION 20% 250 ML IV SCH (19:38)
[2020-04-21] MEDS: TPN (CLINIMIX E 5/15) 2,000 ML with MULTIVITAMIN 10 ML, TRACE ELEMENTS V CONC 1 ML, POT... IV SCH ×4 (19:38)
[2020-04-21] MEDS: SODIUM CHLORIDE 0.9% 500 ML IV PRN (20:49)
[2020-04-22] MEDS: HYDROmorphone 1 MG/ML CARPUJECT IVP PRN ×5 (00:03→11:57)
[2020-04-22] MEDS: METOPROLOL 5 MG/5 ML VIAL IVP SCH ×4 (00:07→17:34)
[2020-04-22] MEDS: SODIUM CHLORIDE FLUSH 0.9% 10 ML SYRINGE IVP SCH ×3 (00:09→15:06)
[2020-04-22] MEDS: ACETAMINOPHEN 1,000 MG/100 ML 100 ML IV PRN ×2 (00:33→09:18)
[2020-04-22] MEDS: SODIUM CHLORIDE FLUSH 0.9% 10 ML SYRINGE IVP PRN ×3 (02:17→11:57)
--- NOTE | 2020-04-22 02:47 | PROVIDER PROGRESS NOTE ---
Progress Note Subjective 80-year-old male who presents with multiple comorbid states including CAD, IL, status post multiple cardiac stents, morbid obesity who was evaluated in the emergency room for nearly 12 hours of abdominal pain and CT findings notable for internal herniation; patient taken emergently for below listed procedure and noted for 54 inches of necrotic ileum for which damage control laparotomy was undertaken with resection, discontinuity, and open abdominal dressing. INDEX Procedure Performed: 1. Exploratory laparotomy 2. Lysis of adhesions 3. Partial omentectomy 4. Small bowel resection with discontinuity 5. Abdominal washout 6. Wide drainage 7. Open abdomen 8. Right internal jugular triple-lumen catheter 9. Right femoral arterial line 10. Open appendectomy In the interim patient has been weaned significantly off Daniel-Synephrine. Vasopressin weaned. Patient has normalized for heart rate. Normalized lactic acidosis. Yesterday, status post: Procedure Performed: 1. Second look laparotomy/re-exploration 2. Small bowel resection 3. Small bowel anastomosis 4. Abdominal washout 5. Wide local drainage 6. Closure of mesenteric defect 7. Possible ventral hernia repair INTERIM: A. Patient had ultimately been weaned off of pressors; initially required phenylephrine which was augmented with vasopressin; ultimately these were both weaned without any complication. Next B. Patient was ultimately transitioned from propofol to Precedex in anticipation of ventilatory weaning and planned extubation. Patient was maintained on fentanyl for analgesia. C. Patient was maintained for endotracheal tube was attempted for extubation on postoperative day #1 following the patient's second operative/reoperative intervention. Secondary to agitation this was deferred. D. Patient ultimately has been extubated with no complication and is required CPAP for support which he has used at home. E. No bowel function as of yet however more awake and more alert. Had been maintained on Precedex post extubation for agitation however this has improved. F. Family has been made aware of the patient's slow progress in recovery on a daily basis. Objective Afebrile hemodynamically acceptable Patient sedated but arousable and following basic commands No acute distress resting comfortably in bed; intubated and sedated Lungs clear to auscultation bilaterally no wheezes rales or rhonchi Radial pulses palpable bilaterally with good capillary refill Abdomen soft nontender nondistended no rebound no guarding Midline wound dressing changed, granulating well, no erythema, no induration, tolerated well. Dressing clean dry and intact. Martin drains serosanguineous. Moving all extremities with no sensorimotor deficits Cranial nerves II through XII grossly intact Assessment and plan: 80-year-old male postoperative day #5 status post second look laparotomy/damage control surgery with yazidism of bowel continuity and abdominal closure of fascial defect. Presented with ischemic bowel/necrotic ileum from internal herniation. Multiple comorbid states. Septic shock. Plan going forward is as follows: (1) GI - hold intravenous fluid given fluid retention, continue parenteral nutrition and fluid concentrate, anticipate prolonged ileus thus will begin trickle feeds by Dobbhoff placed today with gracious assistance from Nutrition, to whom we are indebted to for their management of the patient's caloric needs. (2) SURGERY - Continue MARTIN X2. Abdominal binder. Wound care continue packing midline wound in several days; will continue QOD. (3) Renal/Lytes - continue to hold IVF and fluid restrict TPN. Renal indices within normal limits. Continue Diuresis. (4) Respiratory - S/P extubation. Would recommend continued diuresis given positive retention in the setting of significant resuscitation. Discussed with hospitalist. Maintain antibiotics for presumptive infiltrates. CPAP as necessary. (5) Heme - Will continue with mechanical DVT ppx. H/H stable. Thrombocytopenia; will follow and hold chemical ppx for the time being. (6) Cardiovascular - HD acceptable. Maintained off pressors. We will plan diuresis. We will discontinue the right femoral arterial line. (7) Neuro - Continue restraints. Continue pain management with fentanyl. Wean Precedex. (8) continue ICU level of care, continue to greatly appreciate the hospitalist input with regard to this complex patient. (9) ENDOCRINOLOGY - continue insulin sliding scale. (10) Infectious Disease - continue Zosyn for broad coverage. Leave midline wound open. Antibiotic should also cover concern for pulmonary infiltrates. Leukocytosis resolved. Inflammatory markers resolved. Continue current management. (11) we will order physical therapy and Occupational Therapy.
[2020-04-22] MEDS: hydrALAZINE INJ 20 MG/ML VIAL IVP PRN ×2 (03:10→20:41)
[2020-04-22] MEDS: KETOROLAC 30 MG/ML VIAL IVP PRN (04:43)
[2020-04-22 05:25] LABS: BASOPHILS % (AUTO) 0.3 %; EOSINOPHILS # (AUTO) 0.2 10^3/uL (0.0-0.7); EOSINOPHILS % (AUTO) 2.1 %; HGB - HEMOGLOBIN 11.3 g/dL (14.0-18.0); LYMPHOCYTES # (AUTO) 0.9 10^3/uL (1.5-3.5); LYMPHOCYTES % (AUTO) 9.7 %; MEAN CORPUSCULAR HEMOGLOBIN 32.5 pg (27.0-31.0); MEAN CORPUSCULAR HGB CONC 34.2 g/dL (32.0-36.0); MEAN CORPUSCULAR VOLUME 94.8 fL (80.0-94.0); MEAN PLATELET VOLUME 10.8 fL (7.4-11.4); MONOCYTES # (AUTO) 0.7 10^3/uL (0.0-1.0); MONOCYTES % (AUTO) 7.5 %; NEUTROPHILS # (AUTO) 6.9 10^3/uL (1.5-6.6); NEUTROPHILS % (AUTO) 79.1 %; PLT - PLATELET COUNT 168 10^3/uL (130-450); RED BLOOD COUNT 3.48 10^6/uL (4.70-6.10); RED CELL DISTRIBUTION WIDTH 12.5 % (12.0-15.0); WHITE BLOOD COUNT 8.8 x10^3/uL (4.8-10.8)
[2020-04-22 05:31] LABS: ALBUMIN/GLOBULIN RATIO 0.9 (1.0-2.2); BILIRUBIN,TOTAL 1.1 mg/dL (0.2-1.0); CALCIUM 8.6 mg/dL (8.5-10.3); CREATININE 0.6 mg/dL (0.6-1.2); PHOSPHORUS 2.7 mg/dL (2.5-4.6); TOTAL PROTEIN 6.5 g/dL (6.7-8.2)
[2020-04-22] MEDS: INSULIN REGULAR HUMAN 300 UNIT/3 ML VIAL SUBQ SCH ×3 (06:24→17:30)
[2020-04-22] MEDS: FUROSEMIDE 40 MG/4 ML VIAL IVP SCH ×2 (06:32→15:05)
[2020-04-22] MEDS: PANTOPRAZOLE 40 MG VIAL IVP SCH (06:32)
--- NOTE | 2020-04-22 08:27 | PROVIDER PROGRESS NOTE ---
Assessment/Plan - Problem List (1) Obstruction concurrent with and due to internal hernia of abdomen Assessment/Plan: Exploratory laparotomy, Small bowel resection of 54 inches of necrotic ileum POD #5 Patient was left in discontinuity and with open abdomen. Second look laparotomy/reexploration POD#4. Dr. Williamson is managing surgical aspect. (2) Sepsis Qualifiers: Sepsis type: sepsis due to unspecified organism Sepsis acute organ dysfunction status: without acute organ dysfunction Qualified Code(s): A41.9 - Sepsis, unspecified organism Assessment/Plan: 04/22/20 Patient continues to do well. WBC 9.6 His wound dressing was changed today by Dr. Williamson. 04/21/20 Patient continues to do well. Antibiotics discontinued today. Tube feeds to start tomorrow. 04/20/20 Patient continues to improve daily. We will consider discontinuing IV antibiotics tomorrow after discussion with surgery. 04/19/20 Likely multifactorial. Secondary to necrotic small bowel and pneumonia. Patient is on Zosyn. Will continue Patient appears stable. His white count is 5.0 today. Patient's urine output improved. He is off pressors. (3) Respiratory failure Qualifiers: Chronicity: acute Respiratory failure complication: hypoxia Qualified Code(s): J96.01 - Acute respiratory failure with hypoxia Assessment/Plan: 04/22/20 Patient continues to do well. He is on CPAP intermittently. We will continue to monitor 04/21/2020 Patient continues to do well. He is on CPAP intermittently. We will continue to monitor 04/20/20 Patient continues to improve daily. Precedex and fentanyl drips were discontinued today. Dilaudid 1 mg IV every 2 hours as needed for pain ordered. Ativan 0.5 mg IV every 4 hours as needed for anxiety ordered Patient was placed on BiPAP intermittently through out the day. He uses a CPAP at home and this will be initiated once his drops of his home device. We will continue the patient's Zosyn for today. We will consider discontinuing antibiotics tomorrow if cleared by surgery. 04/19/20 Patient tolerated a CPAP mode for over 1 hour today during weaning trial after sedation was discontinued. Patient's weaning trial parameters were: NIF was -27,Tidal volume 790 mils respiration 13 1 hour after extubation the patient became agitated and required initiation of Precedex. His agitation progressed such that he required a dose of 1 mg of Versed IV x1 and soft wrist restraints. The Precedex drip was steadily titrated up to 1.1. At this time the patient became tachycardic with a heart rate in the 140s and his blood pressure was in the 150s systolic. The patient was given a dose of Lasix 40 mg IV x1 and placed on the BiPAP which cause significant relief and stabilization of his vitals. 04/18/20 Multifactorial. Patient appears to have pneumonia which is suspected to be secondary to aspiration. Chest x-ray done today showed bilateral basal opacities Patient also has a history of COPD and lung cancer with resection of right upper lobe And also appears volume overloaded. Patient is currently sedated with precedex, fentanyl and as needed Versed and intubated. Patient failed weaning trial today. Will attempt again tomorrow. Patient was ordered Lasix 40 mg IV twice daily x2 doses. Will reassess for continuation tomorrow. Fluids discontinued. We will monitor I's and O's. Later in the evening the patient's oxygen saturation with slowly dropped to the high 80s. As a result patient FiO2 was increased from 35 to 40%. The patient is maintained on SIMV mode. (5) Electrolyte abnormality Assessment/Plan: Within normal ranges. We will continue to monitor electrolytes and replace accordingly. (6) Lactic acidosis Assessment/Plan: Resolved (7) History of COPD Assessment/Plan: On DuoNeb 4 times daily as needed. On CPAP intermittently (9) History of coronary artery disease Assessment/Plan: On metoprolol tartrate 5 mg IV every 6 hours. We will switch to 25 mg metoprolol succinate daily when patient is able to tolerate oral medication. (10) Hypertension Assessment/Plan: Improved. We will continue hydralazine 20 mg IV every 4 hours as needed Continue metoprolol tartrate 5 mg IV every 6 hours scheduled. - Current Meds Current Meds: Current Medications Generic Name Dose Route Start Last Admin Trade Name Freq PRN Reason Stop Dose Admin Albuterol/Ipratropium 3 ml 04/18/20 07:35 04/18/20 15:20 Ipratropium/Albuterol 3 Ml Neb INH 3 ml RTQID PRN Administration Wheezing Chlorhexidine Gluconate 15 ml 04/16/20 09:00 04/21/20 20:45 Chlorhexidine Gluconate 15 Ml Udc PO 15 ml BID MAGI Administration Furosemide 40 mg 04/21/20 09:00 04/22/20 06:32 Furosemide 40 Mg/4 Ml Vial IVP 40 mg BIDDIURETIC MAGI Administration Heparin Sodium (Porcine) 5,000 unit 04/16/20 09:00 04/21/20 20:45 Heparin 5,000 Unit/Ml Vial SUBQ 5,000 unit BID MAGI Administration Hydralazine HCl 20 mg 04/21/20 15:58 04/22/20 03:10 Hydralazine Inj 20 Mg/Ml Vial IVP 20 mg Q4H PRN Administration PER PHYSICIAN ORDER Hydromorphone HCl 1 mg 04/20/20 17:22 04/22/20 03:58 Hydromorphone 1 Mg/Ml Carpuject IVP 1 mg Q2HR PRN Administration PAIN Fat Emulsion Intravenous 250 mls @ 21 mls/hr 04/17/20 19:00 04/22/20 06:49 Intralipid 20% IV Infused Q24H MAGI Infusion Sodium Chloride 500 mls @ 0 mls/hr 04/18/20 20:52 04/22/20 06:00 Normal Saline 0.9% IV 20 mls/hr Q24H PRN Infusion TKO RATE TKO Acetaminophen 100 mls @ 400 mls/hr 04/19/20 12:33 04/22/20 01:13 Ofirmev IV Infused Q6HR PRN Infusion Pain or fever Multivitamins 10 ml/ Chromium/ 2,016 mls @ 63.157 mls/hr 04/21/20 19:00 04/22/20 07:00 Copper/Manganese/Seleni/Zn 1 IV 63.1 mls/hr ml/ Potassium Phosphate 15 TPN/PPN MAGI Infusion mmol/ Amino Ac/Electrol/ Dextrose/Calcium Protocol Insulin Human Regular 3 - 11 unit 04/19/20 12:00 04/22/20 06:24 Insulin Regular Human 300 Unit/3 Ml Vial SUBQ 5 unit Q6HR MAGI Administration Protocol Ketorolac Tromethamine 30 mg 04/21/20 00:08 04/22/20 04:43 Ketorolac 30 Mg/Ml Vial IVP 04/26/20 00:07 30 mg Q6HR PRN Administration PAIN Lorazepam 0.5 mg 04/20/20 17:24 04/20/20 21:35 Lorazepam 2 Mg/Ml Vial IVP 0.5 mg Q4H PRN Administration Anxiety Metoprolol Tartrate 5 mg 04/20/20 13:00 04/22/20 06:35 Metoprolol 5 Mg/5 Ml Vial IVP 5 mg Q6HR MAIG Administration Multi-Ingredient Ointment 1 applic 04/18/20 03:24 04/20/20 19:59 Zinc Oxide 20% Oint 30 Gm Tube TOP 1 applic PRN PRN Administration Skin Care Pantoprazole Sodium 40 mg 04/16/20 07:00 04/22/20 06:32 Pantoprazole 40 Mg Vial IVP 40 mg QDAC MAGI Administration Sodium Chloride 10 ml 04/16/20 09:00 04/22/20 00:09 Sodium Chloride Flush 0.9% 10 Ml Syringe IVP 10 ml 0100,0900,1700 MAGI Administration Sodium Chloride 10 ml 04/16/20 01:56 04/22/20 04:22 Sodium Chloride Flush 0.9% 10 Ml Syringe IVP 30 ml PRN PRN Administration NEEDED PER PROVIDER ORDERS - Lab Result Fish Bone Diagrams: 04/23/20 04:30 04/23/20 04:30 - Additional Planning My Orders: My Active Orders 04/21/20 09:00 FUROSEMIDE INJ 40mg VIAL [LASIX INJ 40 mg VIAL] 40 mg IVP BIDDIURETIC 04/21/20 15:58 hydrALAZINE INJ [Apresoline Inj] 20 mg IVP Q4H PRN Subjective - Subjective Patient Reports: Other (Rojas continues to make significant improvement. He is very awake, alert and oriented today. He denies any complaints. He had a Dobbhoff tube placed today with initiation of tube feeds. He has not yet had a bowel movement.) Objective Vital Signs: Vital Signs - 24 hr 04/21/20 04/21/20 04/21/20 09:00 10:00 10:03 Temperature Heart Rate [ 68 75 Monitoring electrodes] Heart Rate [ Sitting] Heart Rate [ Supine] Respiratory 18 15 Rate Blood Pressure 182/95 H Blood Pressure 180/94 H 182/95 H [Right Brachial artery] Blood Pressure [Sitting] Blood Pressure [Supine] O2 Saturation 100 100 04/21/20 04/21/20 04/21/20 10:15 10:33 11:00 Temperature Heart Rate [ 74 67 Monitoring electrodes] Heart Rate [ Sitting] Heart Rate [ Supine] Respiratory 17 16 Rate Blood Pressure 174/84 H Blood Pressure 174/84 H 158/84 H [Right Brachial artery] Blood Pressure [Sitting] Blood Pressure [Supine] O2 Saturation 100 99 04/21/20 04/21/20 04/21/20 12:00 12:10 13:00 Temperature 36.5 C Heart Rate [ 72 87 Monitoring electrodes] Heart Rate [ 84 Sitting] Heart Rate [ 78 Supine] Respiratory 18 16 Rate Blood Pressure Blood Pressure 178/84 H 171/101 H [Right Brachial artery] Blood Pressure 179/90 H [Sitting] Blood Pressure 178/84 H [Supine] O2 Saturation 100 100 04/21/20 04/21/20 04/21/20 13:14 14:00 15:00 Temperature Heart Rate [ 68 69 Monitoring electrodes] Heart Rate [ Sitting] Heart Rate [ Supine] Respiratory 15 12 Rate Blood Pressure 171/101 H Blood Pressure 164/80 H 177/89 H [Right Brachial artery] Blood Pressure [Sitting] Blood Pressure [Supine] O2 Saturation 100 96 04/21/20 04/21/20 04/21/20 16:00 17:00 18:50 Temperature 36.8 C Heart Rate [ 68 77 Monitoring electrodes] Heart Rate [ Sitting] Heart Rate [ Supine] Respiratory 16 20 Rate Blood Pressure 165/89 H Blood Pressure 143/78 H 148/87 H [Right Brachial artery] Blood Pressure [Sitting] Blood Pressure [Supine] O2 Saturation 96 04/21/20 04/21/20 04/21/20 19:00 19:50 20:00 Temperature 36.5 C Heart Rate [ 62 60 Monitoring electrodes] Heart Rate [ Sitting] Heart Rate [ Supine] Respiratory 14 13 Rate Blood Pressure Blood Pressure 176/87 H 186/90 H [Right Brachial artery] Blood Pressure [Sitting] Blood Pressure [Supine] O2 Saturation 100 04/21/20 04/21/20 04/21/20 21:00 21:05 21:07 Temperature Heart Rate [ 67 73 Monitoring electrodes] Heart Rate [ Sitting] Heart Rate [ Supine] Respiratory 17 Rate Blood Pressure 172/97 H Blood Pressure 172/97 H 167/103 H [Right Brachial artery] Blood Pressure [Sitting] Blood Pressure [Supine] O2 Saturation 100 04/21/20 04/21/20 04/21/20 21:10 21:15 21:20 Temperature Heart Rate [ 69 64 69 Monitoring electrodes] Heart Rate [ Sitting] Heart Rate [ Supine] Respiratory Rate Blood Pressure Blood Pressure 164/87 H 151/76 H 151/77 H [Right Brachial artery] Blood Pressure [Sitting] Blood Pressure [Supine] O2 Saturation 04/21/20 04/21/20 04/21/20 21:30 21:31 21:49 Temperature Heart Rate [ 70 77 Monitoring electrodes] Heart Rate [ Sitting] Heart Rate [ Supine] Respiratory Rate Blood Pressure 136/70 H Blood Pressure 136/70 H 138/69 H [Right Brachial artery] Blood Pressure [Sitting] Blood Pressure [Supine] O2 Saturation 04/21/20 04/21/20 04/22/20 22:00 23:00 00:00 Temperature 36.8 C Heart Rate [ 72 73 85 Monitoring electrodes] Heart Rate [ Sitting] Heart Rate [ Supine] Respiratory 19 16 20 Rate Blood Pressure Blood Pressure 151/69 H 153/78 H 174/82 H [Right Brachial artery] Blood Pressure [Sitting] Blood Pressure [Supine] O2 Saturation 100 100 96 04/22/20 04/22/20 04/22/20 00:07 00:10 00:15 Temperature Heart Rate [ 72 71 Monitoring electrodes] Heart Rate [ Sitting] Heart Rate [ Supine] Respiratory Rate Blood Pressure 164/82 H Blood Pressure 155/84 H 147/83 H [Right Brachial artery] Blood Pressure [Sitting] Blood Pressure [Supine] O2 Saturation 04/22/20 04/22/20 04/22/20 00:20 00:45 01:00 Temperature Heart Rate [ 68 52 L 62 Monitoring electrodes] Heart Rate [ Sitting] Heart Rate [ Supine] Respiratory 14 Rate Blood Pressure Blood Pressure 161/73 H 152/83 H 162/88 H [Right Brachial artery] Blood Pressure [Sitting] Blood Pressure [Supine] O2 Saturation 100 04/22/20 04/22/20 04/22/20 02:00 03:00 03:10 Temperature Heart Rate [ 78 70 71 Monitoring electrodes] Heart Rate [ Sitting] Heart Rate [ Supine] Respiratory 20 16 Rate Blood Pressure Blood Pressure 183/91 H 182/91 H 184/95 H [Right Brachial artery] Blood Pressure [Sitting] Blood Pressure [Supine] O2 Saturation 100 04/22/20 04/22/20 04/22/20 03:15 03:47 04:00 Temperature 36.5 C Heart Rate [ 78 78 Monitoring electrodes] Heart Rate [ Sitting] Heart Rate [ Supine] Respiratory 18 Rate Blood Pressure 143/66 H Blood Pressure 186/98 H 143/66 H 145/64 H [Right Brachial artery] Blood Pressure [Sitting] Blood Pressure [Supine] O2 Saturation 100 04/22/20 04/22/20 04/22/20 04:16 05:00 06:00 Temperature Heart Rate [ 71 70 77 Monitoring electrodes] Heart Rate [ Sitting] Heart Rate [ Supine] Respiratory 16 19 Rate Blood Pressure Blood Pressure 135/64 H 142/69 H 143/83 H [Right Brachial artery] Blood Pressure [Sitting] Blood Pressure [Supine] O2 Saturation 100 100 04/22/20 04/22/20 04/22/20 06:33 06:35 06:37 Temperature Heart Rate [ 81 78 Monitoring electrodes] Heart Rate [ Sitting] Heart Rate [ Supine] Respiratory Rate Blood Pressure 156/77 H Blood Pressure 156/77 H 138/77 H [Right Brachial artery] Blood Pressure [Sitting] Blood Pressure [Supine] O2 Saturation 04/22/20 04/22/20 04/22/20 06:45 06:50 07:00 Temperature Heart Rate [ 69 67 71 Monitoring electrodes] Heart Rate [ Sitting] Heart Rate [ Supine] Respiratory 15 Rate Blood Pressure Blood Pressure 138/74 H 128/72 133/74 H [Right Brachial artery] Blood Pressure [Sitting] Blood Pressure [Supine] O2 Saturation 100 04/22/20 08:00 Temperature 36.7 C Heart Rate [ 63 Monitoring electrodes] Heart Rate [ Sitting] Heart Rate [ Supine] Respiratory 17 Rate Blood Pressure Blood Pressure 143/71 H [Right Brachial artery] Blood Pressure [Sitting] Blood Pressure [Supine] O2 Saturation 98 Oxygen O2 Source Room air I&O (Last 24 Hrs): Intake and Output Totals x24h 04/20/20 04/21/20 04/22/20 23:59 23:59 23:59 Intake Total 4159.739 3634.137 938.1 Output Total 6704 5185 1095 Balance -2544.261 -1550.863 -156.9 General: Alert, Oriented x3 HEENT: Atraumatic, PERRLA, EOMI Neck: Supple, No JVD Neuro: Alert, Non Focal, Oriented Times 3 Cardiovascular: Regular rate Respiratory: Chest non-tender, No respiratory distress, Breath sounds nml Abdomen: Soft, Other (Protuberant abdomen. Surgical site and wound dressing appreciable. Low but improving bowel sounds.) Extremities: No edema, Other - Results Results: Laboratory Results WBC 8.8 x10^3/uL (4.8-10.8) 04/22/20 04:43 RBC 3.48 10^6/uL (4.70-6.10) L 04/22/20 04:43 Hgb 11.3 g/dL (14.0-18.0) L 04/22/20 04:43 Hct 33.0 % (42.0-52.0) L 04/22/20 04:43 MCV 94.8 fL (80.0-94.0) H 04/22/20 04:43 MCH 32.5 pg (27.0-31.0) H 04/22/20 04:43 MCHC 34.2 g/dL (32.0-36.0) 04/22/20 04:43 RDW 12.5 % (12.0-15.0) 04/22/20 04:43 Plt Count 168 10^3/uL (130-450) 04/22/20 04:43 MPV 10.8 fL (7.4-11.4) 04/22/20 04:43 Neut # (Auto) 6.9 10^3/uL (1.5-6.6) H 04/22/20 04:43 Lymph # (Auto) 0.9 10^3/uL (1.5-3.5) L 04/22/20 04:43 Baca # (Auto) 0.7 10^3/uL (0.0-1.0) 04/22/20 04:43 Eos # (Auto) 0.2 10^3/uL (0.0-0.7) 04/22/20 04:43 Baso # (Auto) 0.0 10^3/uL (0.0-0.1) 04/22/20 04:43 Absolute Nucleated RBC 0.00 x10^3/uL 04/22/20 04:43 Nucleated RBC % 0.0 /100WBC 04/22/20 04:43 Bld Gas Analysis Time 1615 04/19/20 16:10 Sample Site A-LINE 04/19/20 16:10 ABG pH 7.32 (7.35-7.45) L 04/19/20 16:10 ABG pCO2 46 mmHg (34-45) H 04/19/20 16:10 ABG pO2 140 mmHg (80-100) H 04/19/20 16:10 ABG HCO3 23.3 mmol/L (22.0-26.0) 04/19/20 16:10 ABG Total CO2 24.7 MMOL/L (21.0-29.0) 04/19/20 16:10 ABG O2 Saturation 99 % (94-98) H 04/19/20 16:10 ABG Base Excess -2.9 mmol/L (-2.0-3.0) L 04/19/20 16:10 Nick Test NOT APPLICABLE 04/19/20 16:10 VBG pH 7.376 (7.31-7.41) 04/20/20 03:45 Ionized Calcium 1.07 mmol/L (1.15-1.33) L 04/20/20 03:45 Respiration Rate 14 b/min 04/19/20 06:25 O2 Delivery Device BiPAP 04/19/20 16:10 Vent Mode SIMV 04/19/20 06:25 FiO2 35.00 04/19/20 16:10 Tidal Volume 600 mL 04/19/20 06:25 PEEP 5 cmH2O 04/19/20 12:12 Pressure Support Vent 12 cmH2O 04/19/20 12:12 EPAP 5 cmH2O 04/19/20 16:10 IPAP 10 cmH2O 04/19/20 16:10 Sodium 133 mmol/L (135-145) L 04/22/20 04:43 Potassium 3.6 mmol/L (3.5-5.0) 04/22/20 04:43 Chloride 99 mmol/L (101-111) L 04/22/20 04:43 Carbon Dioxide 27 mmol/L (21-32) 04/22/20 04:43 Anion Gap 7.0 (6-13) 04/22/20 04:43 BUN 21 mg/dL (6-20) H 04/22/20 04:43 Creatinine 0.6 mg/dL (0.6-1.2) 04/22/20 04:43 Estimated GFR (MDRD) 129 (>89) 04/22/20 04:43 Glucose 189 mg/dL (70-100) H 04/22/20 04:43 POC Whole Bld Glucose 204 mg/dL (70 - 100) H 04/22/20 06:23 Lactic Acid 1.4 mmol/L (0.5-2.2) 04/17/20 21:54 Calcium 8.6 mg/dL (8.5-10.3) 04/22/20 04:43 Phosphorus 2.7 mg/dL (2.5-4.6) 04/22/20 04:43 Magnesium 2.0 mg/dL (1.7-2.8) 04/22/20 04:43 Total Bilirubin 1.1 mg/dL (0.2-1.0) H 04/22/20 04:43 AST 38 IU/L (10-42) 04/22/20 04:43 ALT 32 IU/L (10-60) 04/22/20 04:43 Alkaline Phosphatase 69 IU/L (42-121) 04/22/20 04:43 Troponin I High Sens 13.4 ng/L (2.3-19.7) 04/16/20 02:25 Total Protein 6.5 g/dL (6.7-8.2) L 04/22/20 04:43 Albumin 3.0 g/dL (3.2-5.5) L 04/22/20 04:43 Globulin 3.5 g/dL (2.1-4.2) 04/22/20 04:43 Albumin/Globulin Ratio 0.9 (1.0-2.2) L 04/22/20 04:43 Prealbumin 12 mg/dL (18-45) L 04/20/20 03:45 Triglycerides 106 mg/dL (-149) 04/20/20 03:45 Lipase 13 U/L (22-51) L 04/15/20 18:40 Vitamin B12 244 pg/mL (180-914) 04/20/20 03:45 Nasal Adenovirus (PCR) NOT DETECTED 04/15/20 20:15 Nasal B. parapertussis DNA (PCR) NOT DETECTED 04/15/20 20:15 Nasal Coronavir 229E PCR NOT DETECTED 04/15/20 20:15 Nasal Coronavir HKU1 PCR NOT DETECTED 04/15/20 20:15 Nasal Coronavir NL63 PCR NOT DETECTED 04/15/20 20:15 Nasal Coronavir OC43 PCR NOT DETECTED 04/15/20 20:15 Nasal Enterovir/Rhinovir PCR NOT DETECTED 04/15/20 20:15 Nasal Influenza B PCR NOT DETECTED 04/15/20 20:15 Nasal Influenza A PCR NOT DETECTED 04/15/20 20:15 Nasal Parainfluen 1 PCR NOT DETECTED 04/15/20 20:15 Nasal Parainfluen 2 PCR NOT DETECTED 04/15/20 20:15 Nasal Parainfluen 3 PCR NOT DETECTED 04/15/20 20:15 Nasal Parainfluen 4 PCR NOT DETECTED 04/15/20 20:15 Nasal RSV (PCR) NOT DETECTED 04/15/20 20:15 Nasal Screen MRSA (PCR) NEGATIVE (NEGATIVE) 04/16/20 02:25 Nasal B.pertussis DNA PCR NOT DETECTED 04/15/20 20:15 Nasal C.pneumoniae (PCR) NOT DETECTED 04/15/20 20:15 Rashaad Human Metapneumo PCR NOT DETECTED 04/15/20 20:15 Nasal M.pneumoniae (PCR) NOT DETECTED 04/15/20 20:15 Nasal SARS-CoV-2 (PCR) NOT DETECTED 04/15/20 20:15 - Procedures Procedures: Procedures TOTAL KNEE REPLACEMENT (11/30/12) Sepsis Event Note (H) - Evaluation Current Stage of Sepsis: Sepsis Possible source of Sepsis: positive: GI tract/intra-abdominal - Sepsis Criteria Sepsis Criteria: WBC count greater than 12,000 or less than 4000, Metabolic: lactate > 2 mmol/L ABX Reporting Has patient been on IV antibiotics over the past 48 hours?: No
[2020-04-22] MEDS: HEPARIN 5,000 UNIT/ML VIAL SUBQ SCH ×2 (09:07→20:31)
[2020-04-22] MEDS: CHLORHEXIDINE GLUCONATE 15 ML UDC PO SCH ×2 (09:09→20:31)
--- NOTE | 2020-04-22 11:03 | XRAY Report ---
PROCEDURE: Chest for Line Placement INDICATIONS: Line placement dobbhoff TECHNIQUE: One view of the chest was acquired. COMPARISON: Chest x-ray 04/19/2020 FINDINGS: Surgical changes and devices: Right internal jugular venous catheter is present with distal tip proje cting over the proximal SVC, unchanged. Weighted feeding tube is partially visualized. Please see x-r ay abdomen report for further details. Lungs and pleura: Chronic right basilar pleural thickening. Mediastinum: Mediastinal contours appear normal. Heart size is normal. Bones and chest wall: No suspicious bony lesions. Overlying soft tissues appear unremarkable. IMPRESSION: Partially visualized weighted feeding tube as above. Reviewed by: Audra Beal MD on 04/22/2020 11:02 AM PST Approved by: Audra Beal MD on 04/22/2020 11:02 AM PST Station ID: [id number]
--- NOTE | 2020-04-22 11:03 | XRAY Report ---
PROCEDURE: Abdomen 1 View X-Ray INDICATIONS: ileus follow up TECHNIQUE: 1 view of the abdomen were acquired. COMPARISON: Abdomen x-ray 09/18/2012, chest x-ray 04/19/2020 FINDINGS: Surgical changes and devices: Waiting feeding tube is present appearing coiled overlying the region o f the stomach. Bowel: No pneumoperitoneum. The bowel gas pattern is normal. Soft tissues: No masses; visualized solid organ contours appear normal in size. No suspicious abdom inal calcifications. Bones: No suspicious bony abnormalities. IMPRESSION: Interval placement of weighted feeding tube as above. Otherwise, unremarkable exam. The above findings are concordant with preliminary report. Reviewed by: Audra Beal MD on 04/22/2020 11:01 AM [facility] Approved by: Audra Beal MD on 04/22/2020 11:01 AM [facility] Station ID: [id number]
--- NOTE | 2020-04-22 12:34 | XRAY Report ---
PROCEDURE: Chest for Line Placement INDICATIONS: NG tube insertion TECHNIQUE: One view of the chest was acquired. COMPARISON: Prior studies on 04/22/2020 FINDINGS: Surgical changes and devices: A weighted feeding tube is again seen, with the tip overlying the fundu s of the stomach. A stable right-sided central line is also partially seen. Right mediastinal clips a re seen. Lungs and pleura: Low lung volumes can be seen, causing a crowded appearance to the lung markings. T here is blunting of the right costophrenic angle. Mediastinum: Mediastinal contours appear normal. Heart size is moderately enlarged. Bones and chest wall: No suspicious bony lesions. Age-appropriate degenerative changes are seen. Overlying soft tissues appear unremarkable. IMPRESSION: The tip of the weighted feeding tube is seen overlying the proximal stomach. Blunting of the right costophrenic angle is seen. This may be related to a small pleural effusion or atelectasis. Stable right-sided central line. Mediastinal clips are seen. Reviewed by: Efra Kessler MD on 04/22/2020 11:33 AM [facility] Approved by: Efra Kessler MD on 04/22/2020 11:33 AM [facility] Station ID: [id number]
[2020-04-22] MEDS: ZINC OXIDE 20% OINT 30 GM TUBE TOP PRN (13:28)
[2020-04-22] MEDS: FAT EMULSION 20% 250 ML IV SCH (18:51)
[2020-04-22] MEDS: TPN (CLINIMIX E 5/15) 2,000 ML with MULTIVITAMIN 10 ML, TRACE ELEMENTS V CONC 1 ML, POT... IV SCH ×4 (18:52)
[2020-04-22] MEDS: SODIUM CHLORIDE 0.9% 500 ML IV PRN (20:41)
[2020-04-23] MEDS: METOPROLOL 5 MG/5 ML VIAL IVP SCH ×4 (00:13→18:20)
[2020-04-23] MEDS: SODIUM CHLORIDE FLUSH 0.9% 10 ML SYRINGE IVP PRN ×2 (00:13→04:30)
[2020-04-23] MEDS: SODIUM CHLORIDE FLUSH 0.9% 10 ML SYRINGE IVP SCH ×3 (00:13→15:51)
[2020-04-23] MEDS: INSULIN REGULAR HUMAN 300 UNIT/3 ML VIAL SUBQ SCH ×4 (00:15→18:17)
[2020-04-23] MEDS: HYDROmorphone 1 MG/ML CARPUJECT IVP PRN (04:22)
[2020-04-23 05:27] LABS: BASOPHILS % (AUTO) 0.4 %; EOSINOPHILS # (AUTO) 0.2 10^3/uL (0.0-0.7); EOSINOPHILS % (AUTO) 2.1 %; HGB - HEMOGLOBIN 11.4 g/dL (14.0-18.0); LYMPHOCYTES % (AUTO) 10.7 %; MEAN CORPUSCULAR HEMOGLOBIN 32.3 pg (27.0-31.0); MEAN CORPUSCULAR HGB CONC 33.9 g/dL (32.0-36.0); MEAN CORPUSCULAR VOLUME 95.2 fL (80.0-94.0); MEAN PLATELET VOLUME 10.6 fL (7.4-11.4); MONOCYTES # (AUTO) 0.9 10^3/uL (0.0-1.0); MONOCYTES % (AUTO) 8.9 %; NEUTROPHILS # (AUTO) 7.3 10^3/uL (1.5-6.6); NEUTROPHILS % (AUTO) 76.4 %; PLT - PLATELET COUNT 197 10^3/uL (130-450); RED BLOOD COUNT 3.53 10^6/uL (4.70-6.10); RED CELL DISTRIBUTION WIDTH 12.6 % (12.0-15.0); WHITE BLOOD COUNT 9.6 x10^3/uL (4.8-10.8)
[2020-04-23 05:52] LABS: ALBUMIN/GLOBULIN RATIO 0.9 (1.0-2.2); BILIRUBIN,TOTAL 1.1 mg/dL (0.2-1.0); CALCIUM 8.9 mg/dL (8.5-10.3); CREATININE 0.6 mg/dL (0.6-1.2); MAGNESIUM 1.9 mg/dL (1.7-2.8); PHOSPHORUS 3.1 mg/dL (2.5-4.6); TOTAL PROTEIN 6.2 g/dL (6.7-8.2)
[2020-04-23] MEDS: FUROSEMIDE 40 MG/4 ML VIAL IVP SCH ×2 (05:56→15:51)
[2020-04-23] MEDS: PANTOPRAZOLE 40 MG VIAL IVP SCH (05:59)
--- NOTE | 2020-04-23 07:49 | PROVIDER PROGRESS NOTE ---
Assessment/Plan - Problem List (1) Obstruction concurrent with and due to internal hernia of abdomen Assessment/Plan: Exploratory laparotomy, Small bowel resection of 54 inches of necrotic ileum POD #5 Patient was left in discontinuity and with open abdomen. Second look laparotomy/reexploration POD#4. Dr. Williamson is managing surgical aspect. Overall patient is doing well. (2) Sepsis Qualifiers: Sepsis type: sepsis due to unspecified organism Sepsis acute organ dysfunction status: without acute organ dysfunction Qualified Code(s): A41.9 - Sepsis, unspecified organism Assessment/Plan: 04/23/20 Patient continues to do well. WBC 9.6 No new changes. 04/22/20 Patient continues to do well. WBC 9.6 His wound dressing was changed today by Dr. Williamson. 04/21/20 Patient continues to do well. Antibiotics discontinued today. Tube feeds to start tomorrow. 04/20/20 Patient continues to improve daily. We will consider discontinuing IV antibiotics tomorrow after discussion with surgery. 04/19/20 Likely multifactorial. Secondary to necrotic small bowel and pneumonia. Patient is on Zosyn. Will continue Patient appears stable. His white count is 5.0 today. Patient's urine output improved. He is off pressors. (3) Respiratory failure Qualifiers: Chronicity: acute Respiratory failure complication: hypoxia Qualified Code(s): J96.01 - Acute respiratory failure with hypoxia Assessment/Plan: 04/23/20 Patient continues to do well. We will continue to monitor 04/22/20 Patient continues to do well. He is on CPAP intermittently. We will continue to monitor 04/21/2020 Patient continues to do well. He is on CPAP intermittently. We will continue to monitor 04/20/20 Patient continues to improve daily. Precedex and fentanyl drips were discontinued today. Dilaudid 1 mg IV every 2 hours as needed for pain ordered. Ativan 0.5 mg IV every 4 hours as needed for anxiety ordered Patient was placed on BiPAP intermittently through out the day. He uses a CPAP at home and this will be initiated once his drops of his home device. We will continue the patient's Zosyn for today. We will consider discontinuing antibiotics tomorrow if cleared by surgery. 04/19/20 Patient tolerated a CPAP mode for over 1 hour today during weaning trial after sedation was discontinued. Patient's weaning trial parameters were: NIF was -27,Tidal volume 790 mils respiration 13 1 hour after extubation the patient became agitated and required initiation of Precedex. His agitation progressed such that he required a dose of 1 mg of Versed IV x1 and soft wrist restraints. The Precedex drip was steadily titrated up to 1.1. At this time the patient became tachycardic with a heart rate in the 140s and his blood pressure was in the 150s systolic. The patient was given a dose of Lasix 40 mg IV x1 and placed on the BiPAP which cause significant relief and stabilization of his vitals. 04/18/20 Multifactorial. Patient appears to have pneumonia which is suspected to be secondary to aspiration. Chest x-ray done today showed bilateral basal opacities Patient also has a history of COPD and lung cancer with resection of right upper lobe And also appears volume overloaded. Patient is currently sedated with precedex, fentanyl and as needed Versed and intubated. Patient failed weaning trial today. Will attempt again tomorrow. Patient was ordered Lasix 40 mg IV twice daily x2 doses. Will reassess for continuation tomorrow. Fluids discontinued. We will monitor I's and O's. Later in the evening the patient's oxygen saturation with slowly dropped to the high 80s. As a result patient FiO2 was increased from 35 to 40%. The patient is maintained on SIMV mode. (4) Pneumonia Assessment/Plan: Treatment with antibiotics Zosyn completed. Patient continues to do well on room air. (5) Electrolyte abnormality Assessment/Plan: Within normal ranges. We will continue to monitor electrolytes and replace accordingly. (6) Lactic acidosis Assessment/Plan: Resolved (7) History of COPD Assessment/Plan: On DuoNeb 4 times daily as needed. On CPAP intermittently (9) History of coronary artery disease Assessment/Plan: On metoprolol tartrate 5 mg IV every 6 hours. We will switch to 25 mg metoprolol succinate daily when patient is able to tolerate oral medication. (10) Hypertension Assessment/Plan: Improved. We will continue hydralazine 20 mg IV every 4 hours as needed Continue metoprolol tartrate 5 mg IV every 6 hours scheduled. - Current Meds Current Meds: Current Medications Generic Name Dose Route Start Last Admin Trade Name Freq PRN Reason Stop Dose Admin Albuterol/Ipratropium 3 ml 04/18/20 07:35 04/18/20 15:20 Ipratropium/Albuterol 3 Ml Neb INH 3 ml RTQID PRN Administration Wheezing Chlorhexidine Gluconate 15 ml 04/16/20 09:00 04/22/20 20:31 Chlorhexidine Gluconate 15 Ml Udc PO 15 ml BID MAGI Administration Furosemide 40 mg 04/21/20 09:00 04/23/20 05:56 Furosemide 40 Mg/4 Ml Vial IVP 40 mg BIDDIURETIC MAGI Administration Heparin Sodium (Porcine) 5,000 unit 04/16/20 09:00 04/22/20 20:31 Heparin 5,000 Unit/Ml Vial SUBQ 5,000 unit BID MAGI Administration Hydralazine HCl 20 mg 04/21/20 15:58 04/22/20 20:41 Hydralazine Inj 20 Mg/Ml Vial IVP 20 mg Q4H PRN Administration PER PHYSICIAN ORDER Hydromorphone HCl 1 mg 04/20/20 17:22 04/23/20 04:22 Hydromorphone 1 Mg/Ml Carpuject IVP 1 mg Q2HR PRN Administration PAIN Fat Emulsion Intravenous 250 mls @ 21 mls/hr 04/17/20 19:00 04/23/20 07:03 Intralipid 20% IV Infused Q24H MAGI Infusion Sodium Chloride 500 mls @ 0 mls/hr 04/18/20 20:52 04/23/20 07:00 Normal Saline 0.9% IV 20 mls/hr Q24H PRN Infusion TKO RATE TKO Acetaminophen 100 mls @ 400 mls/hr 04/19/20 12:33 04/22/20 09:33 Ofirmev IV Infused Q6HR PRN Infusion Pain or fever Multivitamins 10 ml/ Chromium/ 2,016 mls @ 63.157 mls/hr 04/21/20 19:00 04/23/20 07:00 Copper/Manganese/Seleni/Zn 1 IV 63.1 mls/hr ml/ Potassium Phosphate 15 TPN/PPN MAGI Infusion mmol/ Amino Ac/Electrol/ Dextrose/Calcium Protocol Insulin Human Regular 3 - 11 unit 04/19/20 12:00 04/23/20 05:56 Insulin Regular Human 300 Unit/3 Ml Vial SUBQ 5 unit Q6HR MAGI Administration Protocol Ketorolac Tromethamine 30 mg 04/21/20 00:08 04/22/20 04:43 Ketorolac 30 Mg/Ml Vial IVP 04/26/20 00:07 30 mg Q6HR PRN Administration PAIN Lorazepam 0.5 mg 04/20/20 17:24 04/20/20 21:35 Lorazepam 2 Mg/Ml Vial IVP 0.5 mg Q4H PRN Administration Anxiety Metoprolol Tartrate 5 mg 04/20/20 13:00 04/23/20 05:57 Metoprolol 5 Mg/5 Ml Vial IVP 5 mg Q6HR MAGI Administration Multi-Ingredient Ointment 1 applic 04/18/20 03:24 04/22/20 13:28 Zinc Oxide 20% Oint 30 Gm Tube TOP 1 applic PRN PRN Administration Skin Care Pantoprazole Sodium 40 mg 04/16/20 07:00 04/23/20 05:59 Pantoprazole 40 Mg Vial IVP 40 mg QDAC MAGI Administration Sodium Chloride 10 ml 04/16/20 09:00 04/23/20 00:13 Sodium Chloride Flush 0.9% 10 Ml Syringe IVP 10 ml 0100,0900,1700 MAGI Administration Sodium Chloride 10 ml 04/16/20 01:56 04/23/20 04:30 Sodium Chloride Flush 0.9% 10 Ml Syringe IVP 30 ml PRN PRN Administration NEEDED PER PROVIDER ORDERS - Lab Result Fish Bone Diagrams: 04/24/20 06:35 04/24/20 06:35 Objective Vital Signs: Vital Signs - 24 hr 04/22/20 04/22/20 04/22/20 08:00 09:00 10:00 Temperature 36.7 C Heart Rate [ 63 74 73 Monitoring electrodes] Respiratory 17 19 17 Rate Blood Pressure Blood Pressure 143/71 H 161/83 H 157/80 H [Right Brachial artery] O2 Saturation 98 99 99 04/22/20 04/22/20 04/22/20 11:00 12:00 13:00 Temperature 36.6 C Heart Rate [ 65 85 78 Monitoring electrodes] Respiratory 13 18 14 Rate Blood Pressure Blood Pressure 149/73 H 156/85 H 131/65 H [Right Brachial artery] O2 Saturation 98 97 96 04/22/20 04/22/20 04/22/20 13:17 14:00 15:00 Temperature Heart Rate [ 58 L 61 Monitoring electrodes] Respiratory 14 16 Rate Blood Pressure 131/65 H Blood Pressure 118/69 158/77 H [Right Brachial artery] O2 Saturation 98 99 04/22/20 04/22/20 04/22/20 16:00 17:00 17:34 Temperature 36.6 C Heart Rate [ 68 74 Monitoring electrodes] Respiratory 18 14 Rate Blood Pressure 137/82 H Blood Pressure 142/72 H 144/81 H [Right Brachial artery] O2 Saturation 98 99 04/22/20 04/22/20 04/22/20 18:00 18:58 20:00 Temperature 36.5 C Heart Rate [ 63 71 70 Monitoring electrodes] Respiratory 20 22 19 Rate Blood Pressure Blood Pressure 149/78 H 142/77 H 172/73 H [Right Brachial artery] O2 Saturation 98 99 99 04/22/20 04/22/20 04/22/20 20:41 20:42 20:45 Temperature Heart Rate [ Monitoring electrodes] Respiratory 18 16 Rate Blood Pressure 171/78 H Blood Pressure 160/88 H [Right Brachial artery] O2 Saturation 99 99 04/22/20 04/22/20 04/22/20 20:50 20:55 21:00 Temperature Heart Rate [ 89 Monitoring electrodes] Respiratory 18 18 18 Rate Blood Pressure Blood Pressure 162/76 H 171/72 H 136/70 H [Right Brachial artery] O2 Saturation 98 98 99 04/22/20 04/22/20 04/22/20 21:15 21:30 21:45 Temperature Heart Rate [ 90 78 80 Monitoring electrodes] Respiratory 16 17 17 Rate Blood Pressure 144/70 H Blood Pressure 144/70 H 133/56 H 131/57 H [Right Brachial artery] O2 Saturation 99 99 98 04/22/20 04/22/20 04/23/20 22:00 23:00 00:00 Temperature 37.3 C Heart Rate [ 82 85 89 Monitoring electrodes] Respiratory 17 15 20 Rate Blood Pressure Blood Pressure 132/61 H 135/66 H 142/69 H [Right Brachial artery] O2 Saturation 99 98 96 04/23/20 04/23/20 04/23/20 00:10 00:13 00:15 Temperature Heart Rate [ 95 85 Monitoring electrodes] Respiratory 20 19 Rate Blood Pressure 151/74 H Blood Pressure 151/74 H 141/68 H [Right Brachial artery] O2 Saturation 97 97 04/23/20 04/23/20 04/23/20 00:20 00:25 00:30 Temperature Heart Rate [ 87 75 76 Monitoring electrodes] Respiratory 20 18 21 Rate Blood Pressure Blood Pressure 135/66 H 134/68 H 135/65 H [Right Brachial artery] O2 Saturation 97 97 97 04/23/20 04/23/20 04/23/20 00:35 00:40 00:45 Temperature Heart Rate [ 73 70 72 Monitoring electrodes] Respiratory 22 18 22 Rate Blood Pressure Blood Pressure 130/63 125/71 134/64 H [Right Brachial artery] O2 Saturation 97 99 98 04/23/20 04/23/20 04/23/20 01:00 01:15 01:56 Temperature Heart Rate [ 72 81 Monitoring electrodes] Respiratory 20 19 22 Rate Blood Pressure Blood Pressure 114/65 131/78 H [Right Brachial artery] O2 Saturation 98 97 99 04/23/20 04/23/20 04/23/20 02:00 03:00 04:00 Temperature Heart Rate [ 79 77 86 Monitoring electrodes] Respiratory 20 22 20 Rate Blood Pressure Blood Pressure 133/67 H 138/65 H 144/75 H [Right Brachial artery] O2 Saturation 98 98 99 04/23/20 04/23/20 04/23/20 04:23 05:00 05:57 Temperature 36.6 C Heart Rate [ 73 Monitoring electrodes] Respiratory 19 Rate Blood Pressure 151/74 H Blood Pressure 137/74 H [Right Brachial artery] O2 Saturation 97 04/23/20 04/23/20 04/23/20 06:00 06:05 06:10 Temperature Heart Rate [ 71 62 61 Monitoring electrodes] Respiratory 18 Rate Blood Pressure Blood Pressure 140/66 H 136/75 H 136/66 H [Right Brachial artery] O2 Saturation 98 04/23/20 04/23/20 04/23/20 06:15 06:20 06:30 Temperature Heart Rate [ 61 60 62 Monitoring electrodes] Respiratory Rate Blood Pressure Blood Pressure 135/70 H 134/71 H 139/68 H [Right Brachial artery] O2 Saturation 04/23/20 04/23/20 06:45 07:00 Temperature 37.0 C Heart Rate [ 70 71 Monitoring electrodes] Respiratory 17 Rate Blood Pressure Blood Pressure 144/94 H 142/66 H [Right Brachial artery] O2 Saturation 98 Oxygen O2 Source Room air I&O (Last 24 Hrs): Intake and Output Totals x24h 04/21/20 04/22/20 04/23/20 23:59 23:59 23:59 Intake Total 3634.137 2804.850 1151.65 Output Total 5123 1152 1523 Balance -1550.863 -487.150 -371.35 - Results Results: Laboratory Results WBC 9.6 x10^3/uL (4.8-10.8) 04/23/20 04:30 RBC 3.53 10^6/uL (4.70-6.10) L 04/23/20 04:30 Hgb 11.4 g/dL (14.0-18.0) L 04/23/20 04:30 Hct 33.6 % (42.0-52.0) L 04/23/20 04:30 MCV 95.2 fL (80.0-94.0) H 04/23/20 04:30 MCH 32.3 pg (27.0-31.0) H 04/23/20 04:30 MCHC 33.9 g/dL (32.0-36.0) 04/23/20 04:30 RDW 12.6 % (12.0-15.0) 04/23/20 04:30 Plt Count 197 10^3/uL (130-450) 04/23/20 04:30 MPV 10.6 fL (7.4-11.4) 04/23/20 04:30 Neut # (Auto) 7.3 10^3/uL (1.5-6.6) H 04/23/20 04:30 Lymph # (Auto) 1.0 10^3/uL (1.5-3.5) L 04/23/20 04:30 [place] # (Auto) 0.9 10^3/uL (0.0-1.0) 04/23/20 04:30 Eos # (Auto) 0.2 10^3/uL (0.0-0.7) 04/23/20 04:30 Baso # (Auto) 0.0 10^3/uL (0.0-0.1) 04/23/20 04:30 Absolute Nucleated RBC 0.00 x10^3/uL 04/23/20 04:30 Nucleated RBC % 0.0 /100WBC 04/23/20 04:30 Bld Gas Analysis Time 1615 04/19/20 16:10 Sample Site A-LINE 04/19/20 16:10 ABG pH 7.32 (7.35-7.45) L 04/19/20 16:10 ABG pCO2 46 mmHg (34-45) H 04/19/20 16:10 ABG pO2 140 mmHg (80-100) H 04/19/20 16:10 ABG HCO3 23.3 mmol/L (22.0-26.0) 04/19/20 16:10 ABG Total CO2 24.7 MMOL/L (21.0-29.0) 04/19/20 16:10 ABG O2 Saturation 99 % (94-98) H 04/19/20 16:10 ABG Base Excess -2.9 mmol/L (-2.0-3.0) L 04/19/20 16:10 Nick Test NOT APPLICABLE 04/19/20 16:10 VBG pH 7.376 (7.31-7.41) 04/20/20 03:45 Ionized Calcium 1.07 mmol/L (1.15-1.33) L 04/20/20 03:45 Respiration Rate 14 b/min 04/19/20 06:25 O2 Delivery Device BiPAP 04/19/20 16:10 Vent Mode SIMV 04/19/20 06:25 FiO2 35.00 04/19/20 16:10 Tidal Volume 600 mL 04/19/20 06:25 PEEP 5 cmH2O 04/19/20 12:12 Pressure Support Vent 12 cmH2O 04/19/20 12:12 EPAP 5 cmH2O 04/19/20 16:10 IPAP 10 cmH2O 04/19/20 16:10 Sodium 133 mmol/L (135-145) L 04/23/20 04:30 Potassium 3.8 mmol/L (3.5-5.0) 04/23/20 04:30 Chloride 99 mmol/L (101-111) L 04/23/20 04:30 Carbon Dioxide 26 mmol/L (21-32) 04/23/20 04:30 Anion Gap 8.0 (6-13) 04/23/20 04:30 BUN 26 mg/dL (6-20) H 04/23/20 04:30 Creatinine 0.6 mg/dL (0.6-1.2) 04/23/20 04:30 Estimated GFR (MDRD) 129 (>89) 04/23/20 04:30 Glucose 192 mg/dL (70-100) H 04/23/20 04:30 POC Whole Bld Glucose 198 mg/dL (70 - 100) H 04/22/20 23:56 Lactic Acid 1.4 mmol/L (0.5-2.2) 04/17/20 21:54 Calcium 8.9 mg/dL (8.5-10.3) 04/23/20 04:30 Phosphorus 3.1 mg/dL (2.5-4.6) 04/23/20 04:30 Magnesium 1.9 mg/dL (1.7-2.8) 04/23/20 04:30 Total Bilirubin 1.1 mg/dL (0.2-1.0) H 04/23/20 04:30 AST 28 IU/L (10-42) 04/23/20 04:30 ALT 29 IU/L (10-60) 04/23/20 04:30 Alkaline Phosphatase 87 IU/L (42-121) 04/23/20 04:30 Troponin I High Sens 13.4 ng/L (2.3-19.7) 04/16/20 02:25 Total Protein 6.2 g/dL (6.7-8.2) L 04/23/20 04:30 Albumin 3.0 g/dL (3.2-5.5) L 04/23/20 04:30 Globulin 3.2 g/dL (2.1-4.2) 04/23/20 04:30 Albumin/Globulin Ratio 0.9 (1.0-2.2) L 04/23/20 04:30 Prealbumin 12 mg/dL (18-45) L 04/20/20 03:45 Triglycerides 106 mg/dL (-149) 04/20/20 03:45 Lipase 13 U/L (22-51) L 04/15/20 18:40 Vitamin B12 244 pg/mL (180-914) 04/20/20 03:45 Nasal Adenovirus (PCR) NOT DETECTED 04/15/20 20:15 Nasal B. parapertussis DNA (PCR) NOT DETECTED 04/15/20 20:15 Nasal Coronavir 229E PCR NOT DETECTED 04/15/20 20:15 Nasal Coronavir HKU1 PCR NOT DETECTED 04/15/20 20:15 Nasal Coronavir NL63 PCR NOT DETECTED 04/15/20 20:15 Nasal Coronavir OC43 PCR NOT DETECTED 04/15/20 20:15 Nasal Enterovir/Rhinovir PCR NOT DETECTED 04/15/20 20:15 Nasal Influenza B PCR NOT DETECTED 04/15/20 20:15 Nasal Influenza A PCR NOT DETECTED 04/15/20 20:15 Nasal Parainfluen 1 PCR NOT DETECTED 04/15/20 20:15 Nasal Parainfluen 2 PCR NOT DETECTED 04/15/20 20:15 Nasal Parainfluen 3 PCR NOT DETECTED 04/15/20 20:15 Nasal Parainfluen 4 PCR NOT DETECTED 04/15/20 20:15 Nasal RSV (PCR) NOT DETECTED 04/15/20 20:15 Nasal Screen MRSA (PCR) NEGATIVE (NEGATIVE) 04/16/20 02:25 Nasal B.pertussis DNA PCR NOT DETECTED 04/15/20 20:15 Nasal C.pneumoniae (PCR) NOT DETECTED 04/15/20 20:15 Rashaad Human Metapneumo PCR NOT DETECTED 04/15/20 20:15 Nasal M.pneumoniae (PCR) NOT DETECTED 04/15/20 20:15 Nasal SARS-CoV-2 (PCR) NOT DETECTED 04/15/20 20:15 - Procedures Procedures: Procedures TOTAL KNEE REPLACEMENT (11/30/12) Sepsis Event Note (H) - Evaluation Current Stage of Sepsis: Sepsis Possible source of Sepsis: positive: GI tract/intra-abdominal - Sepsis Criteria Sepsis Criteria: WBC count greater than 12,000 or less than 4000, Metabolic: lactate > 2 mmol/L ABX Reporting Has patient been on IV antibiotics over the past 48 hours?: No
[2020-04-23] MEDS: HEPARIN 5,000 UNIT/ML VIAL SUBQ SCH ×2 (08:34→21:16)
[2020-04-23] MEDS: CHLORHEXIDINE GLUCONATE 15 ML UDC PO SCH ×2 (08:34→21:16)
--- NOTE | 2020-04-23 12:07 | PROVIDER PROGRESS NOTE ---
Subjective - Prog Note Date Prog Note Date: 04/23/20 - Subjective Pt reports feeling: Improved (he is up with pt. motivated. no complaints. tolerating tube feeds.) Objective - Vital Signs/Intake & Output Reviewed Vital Signs: Yes Vital Signs: Vital Signs x48h Temp Pulse Resp BP BP Pulse Ox 04/23/20 09:00 72 21 135/76 H 99 04/23/20 08:30 138/80 H 04/23/20 08:00 36.4 C L 73 18 164/84 H 96 04/23/20 07:00 37.0 C 71 17 142/66 H 98 04/23/20 06:45 70 144/94 H 04/23/20 06:30 62 139/68 H 04/23/20 06:20 60 134/71 H 04/23/20 06:15 61 135/70 H 04/23/20 06:10 61 136/66 H 04/23/20 06:05 62 136/75 H 04/23/20 06:00 71 18 140/66 H 98 04/23/20 05:57 151/74 H 04/23/20 05:00 73 19 137/74 H 97 04/23/20 04:23 36.6 C Intake & Output: Intake & Output 04/20/20 04/21/20 04/22/20 04/23/20 23:59 23:59 23:59 23:59 Intake Total 4159.739 3634.137 2804.850 1191.65 Output Total 6704 5185 3292 2593 Balance -2544.261 -1550.863 -487.150 -1401.35 - Objective General Appearance: positive: No acute distress, Alert Eyes Bilateral: positive: Normal inspection, PERRL, EOMI Neck: positive: No JVD, Trachea midline Respiratory: positive: No respiratory distress Abdomen: positive: Non-tender, No distention, Other (jps thin serosanguinous) - Lab Results Fish Bones: 04/23/20 04:30 04/23/20 04:30 Other Labs: Lab Results x24hrs 04/23/20 04/23/20 04/23/20 Range/Units 05:45 04:30 04:30 WBC 9.6 (4.8-10.8) x10^3/uL RBC 3.53 L (4.70-6.10) 10^6/uL Hgb 11.4 L (14.0-18.0) g/dL Hct 33.6 L (42.0-52.0) % MCV 95.2 H (80.0-94.0) fL MCH 32.3 H (27.0-31.0) pg MCHC 33.9 (32.0-36.0) g/dL RDW 12.6 (12.0-15.0) % Plt Count 197 (130-450) 10^3/uL MPV 10.6 (7.4-11.4) fL Neut # (Auto) 7.3 H (1.5-6.6) 10^3/uL Lymph # (Auto) 1.0 L (1.5-3.5) 10^3/uL [place] # (Auto) 0.9 (0.0-1.0) 10^3/uL Eos # (Auto) 0.2 (0.0-0.7) 10^3/uL Baso # (Auto) 0.0 (0.0-0.1) 10^3/uL Absolute Nucleated RBC 0.00 x10^3/uL Nucleated RBC % 0.0 /100WBC Sodium 133 L (135-145) mmol/L Potassium 3.8 (3.5-5.0) mmol/L Chloride 99 L (101-111) mmol/L Carbon Dioxide 26 (21-32) mmol/L Anion Gap 8.0 (6-13) BUN 26 H (6-20) mg/dL Creatinine 0.6 (0.6-1.2) mg/dL Estimated GFR (MDRD) 129 (>89) Glucose 192 H (70-100) mg/dL POC Whole Bld Glucose 185 H (70 - 100) mg/dL Calcium 8.9 (8.5-10.3) mg/dL Phosphorus 3.1 (2.5-4.6) mg/dL Magnesium 1.9 (1.7-2.8) mg/dL Total Bilirubin 1.1 H (0.2-1.0) mg/dL AST 28 (10-42) IU/L ALT 29 (10-60) IU/L Alkaline Phosphatase 87 (42-121) IU/L Total Protein 6.2 L (6.7-8.2) g/dL Albumin 3.0 L (3.2-5.5) g/dL Globulin 3.2 (2.1-4.2) g/dL Albumin/Globulin Ratio 0.9 L (1.0-2.2) 04/22/20 04/22/20 Range/Units 23:56 17:22 WBC (4.8-10.8) x10^3/uL RBC (4.70-6.10) 10^6/uL Hgb (14.0-18.0) g/dL Hct (42.0-52.0) % MCV (80.0-94.0) fL MCH (27.0-31.0) pg MCHC (32.0-36.0) g/dL RDW (12.0-15.0) % Plt Count (130-450) 10^3/uL MPV (7.4-11.4) fL Neut # (Auto) (1.5-6.6) 10^3/uL Lymph # (Auto) (1.5-3.5) 10^3/uL [place] # (Auto) (0.0-1.0) 10^3/uL Eos # (Auto) (0.0-0.7) 10^3/uL Baso # (Auto) (0.0-0.1) 10^3/uL Absolute Nucleated RBC x10^3/uL Nucleated RBC % /100WBC Sodium (135-145) mmol/L Potassium (3.5-5.0) mmol/L Chloride (101-111) mmol/L Carbon Dioxide (21-32) mmol/L Anion Gap (6-13) BUN (6-20) mg/dL Creatinine (0.6-1.2) mg/dL Estimated GFR (MDRD) (>89) Glucose (70-100) mg/dL POC Whole Bld Glucose 198 H 186 H (70 - 100) mg/dL Calcium (8.5-10.3) mg/dL Phosphorus (2.5-4.6) mg/dL Magnesium (1.7-2.8) mg/dL Total Bilirubin (0.2-1.0) mg/dL AST (10-42) IU/L ALT (10-60) IU/L Alkaline Phosphatase (42-121) IU/L Total Protein (6.7-8.2) g/dL Albumin (3.2-5.5) g/dL Globulin (2.1-4.2) g/dL Albumin/Globulin Ratio (1.0-2.2) Sepsis Event Note (H) - Evaluation Current Stage of Sepsis: Sepsis Possible source of Sepsis: positive: GI tract/intra-abdominal - Sepsis Criteria Sepsis Criteria: WBC count greater than 12,000 or less than 4000, Metabolic: lactate > 2 mmol/L Assessment/Plan - Problem List (1) Obstruction concurrent with and due to internal hernia of abdomen Impression: Doing well after a very severe problem/ illness Appreciate medicine and nutrition care. tube feeds as tolerated diet clears as tolerated
[2020-04-23] MEDS: TPN (CLINIMIX E 5/15) 2,000 ML with MULTIVITAMIN 10 ML, TRACE ELEMENTS V CONC 1 ML, POT... IV SCH ×4 (18:56)
[2020-04-23] MEDS: FAT EMULSION 20% 250 ML IV SCH (18:56)
[2020-04-24] MEDS: INSULIN REGULAR HUMAN 300 UNIT/3 ML VIAL SUBQ SCH ×4 (00:22→17:47)
[2020-04-24] MEDS: METOPROLOL 5 MG/5 ML VIAL IVP SCH ×4 (00:25→17:39)
[2020-04-24] MEDS: KETOROLAC 30 MG/ML VIAL IVP PRN ×3 (00:38→18:59)
[2020-04-24] MEDS: SODIUM CHLORIDE FLUSH 0.9% 10 ML SYRINGE IVP PRN ×4 (00:38→06:30)
[2020-04-24] MEDS: SODIUM CHLORIDE FLUSH 0.9% 10 ML SYRINGE IVP SCH ×3 (00:38→17:40)
[2020-04-24] MEDS: FUROSEMIDE 40 MG/4 ML VIAL IVP SCH ×2 (06:15→14:02)
[2020-04-24] MEDS: PANTOPRAZOLE 40 MG VIAL IVP SCH (06:16)
[2020-04-24 07:02] LABS: ALBUMIN 2.8 g/dL (3.2-5.5); ALBUMIN/GLOBULIN RATIO 0.9 (1.0-2.2); BILIRUBIN,TOTAL 0.9 mg/dL (0.2-1.0); CALCIUM 8.8 mg/dL (8.5-10.3); CREATININE 0.8 mg/dL (0.6-1.2); MAGNESIUM 1.7 mg/dL (1.7-2.8); PHOSPHORUS 4.6 mg/dL (2.5-4.6)
[2020-04-24 07:08] LABS: BASOPHILS % (AUTO) 0.5 %; EOSINOPHILS # (AUTO) 0.2 10^3/uL (0.0-0.7); EOSINOPHILS % (AUTO) 2.8 %; HGB - HEMOGLOBIN 10.8 g/dL (14.0-18.0); LYMPHOCYTES # (AUTO) 1.1 10^3/uL (1.5-3.5); LYMPHOCYTES % (AUTO) 13.1 %; MEAN CORPUSCULAR HEMOGLOBIN 32.3 pg (27.0-31.0); MEAN CORPUSCULAR HGB CONC 34.4 g/dL (32.0-36.0); MEAN PLATELET VOLUME 10.4 fL (7.4-11.4); MONOCYTES # (AUTO) 0.6 10^3/uL (0.0-1.0); MONOCYTES % (AUTO) 7.1 %; NEUTROPHILS # (AUTO) 6.1 10^3/uL (1.5-6.6); NEUTROPHILS % (AUTO) 74.6 %; PLT - PLATELET COUNT 176 10^3/uL (130-450); RED BLOOD COUNT 3.34 10^6/uL (4.70-6.10); RED CELL DISTRIBUTION WIDTH 12.5 % (12.0-15.0); WHITE BLOOD COUNT 8.2 x10^3/uL (4.8-10.8)
--- NOTE | 2020-04-24 08:18 | PROVIDER PROGRESS NOTE ---
Assessment/Plan - Problem List (1) Obstruction concurrent with and due to internal hernia of abdomen Assessment/Plan: Exploratory laparotomy, Small bowel resection of 54 inches of necrotic ileum POD #5 Patient was left in discontinuity and with open abdomen. Second look laparotomy/reexploration POD#4. Dr. Williamson is managing surgical aspect. Overall patient is doing well. Plan is for Dr Williamson to close the patient's wound at the end of the week. Patient was seen by PT OT and SNF was recommended. Discharge planners reached out to [facility] which is agreeable to accept the patient on the condition of no NG tube. (2) Sepsis Qualifiers: Sepsis type: sepsis due to unspecified organism Sepsis acute organ dysfunction status: without acute organ dysfunction Qualified Code(s): A41.9 - Sepsis, unspecified organism Assessment/Plan: 04/24/20 Patient continues to do well. WBC 8.2 No new changes. 04/23/20 Patient continues to do well. WBC 9.6 No new changes. 04/22/20 Patient continues to do well. WBC 9.6 His wound dressing was changed today by Dr. Williamson. 04/21/20 Patient continues to do well. Antibiotics discontinued today. Tube feeds to start tomorrow. 04/20/20 Patient continues to improve daily. We will consider discontinuing IV antibiotics tomorrow after discussion with surgery. 04/19/20 Likely multifactorial. Secondary to necrotic small bowel and pneumonia. Patient is on Zosyn. Will continue Patient appears stable. His white count is 5.0 today. Patient's urine output improved. He is off pressors. (3) Respiratory failure Qualifiers: Chronicity: acute Respiratory failure complication: hypoxia Qualified Code(s): J96.01 - Acute respiratory failure with hypoxia Assessment/Plan: 04/24/20 He was treated to completion with Zosyn for pneumonia. Patient continues to do well. We will continue to monitor 04/23/20 Patient continues to do well. We will continue to monitor 04/22/20 Patient continues to do well. He is on CPAP intermittently. We will continue to monitor 04/21/2020 Patient continues to do well. He is on CPAP intermittently. We will continue to monitor 04/20/20 Patient continues to improve daily. Precedex and fentanyl drips were discontinued today. Dilaudid 1 mg IV every 2 hours as needed for pain ordered. Ativan 0.5 mg IV every 4 hours as needed for anxiety ordered Patient was placed on BiPAP intermittently through out the day. He uses a CPAP at home and this will be initiated once his drops of his home device. We will continue the patient's Zosyn for today. We will consider discontinuing antibiotics tomorrow if cleared by surgery. 04/19/20 Patient tolerated a CPAP mode for over 1 hour today during weaning trial after sedation was discontinued. Patient's weaning trial parameters were: NIF was -27,Tidal volume 790 mils respiration 13 1 hour after extubation the patient became agitated and required initiation of Precedex. His agitation progressed such that he required a dose of 1 mg of Versed IV x1 and soft wrist restraints. The Precedex drip was steadily titrated up to 1.1. At this time the patient became tachycardic with a heart rate in the 140s and his blood pressure was in the 150s systolic. The patient was given a dose of Lasix 40 mg IV x1 and placed on the BiPAP which cause significant relief and stabilization of his vitals. 04/18/20 Multifactorial. Patient appears to have pneumonia which is suspected to be secondary to aspiration. Chest x-ray done today showed bilateral basal opacities Patient also has a history of COPD and lung cancer with resection of right upper lobe And also appears volume overloaded. Patient is currently sedated with precedex, fentanyl and as needed Versed and intubated. Patient failed weaning trial today. Will attempt again tomorrow. Patient was ordered Lasix 40 mg IV twice daily x2 doses. Will reassess for continuation tomorrow. Fluids discontinued. We will monitor I's and O's. Later in the evening the patient's oxygen saturation with slowly dropped to the high 80s. As a result patient FiO2 was increased from 35 to 40%. The patient is maintained on SIMV mode. (4) Pneumonia Assessment/Plan: Treatment with antibiotics Zosyn completed. Patient continues to do well on room air. (5) Electrolyte abnormality Assessment/Plan: Within normal ranges. We will continue to monitor electrolytes and replace accordingly. (6) Lactic acidosis Assessment/Plan: Resolved (7) History of COPD Assessment/Plan: On DuoNeb 4 times daily as needed. On CPAP intermittently (9) History of coronary artery disease Assessment/Plan: On metoprolol tartrate 5 mg IV every 6 hours. We will switch to 25 mg metoprolol succinate daily when patient is able to channing erate oral medication. (10) Hypertension Assessment/Plan: Improved. We will continue hydralazine 20 mg IV every 4 hours as needed Continue metoprolol tartrate 5 mg IV every 6 hours scheduled. - Current Meds Current Meds: Current Medications Generic Name Dose Route Start Last Admin Trade Name Freq PRN Reason Stop Dose Admin Albuterol/Ipratropium 3 ml 04/18/20 07:35 04/18/20 15:20 Ipratropium/Albuterol 3 Ml Neb INH 3 ml RTQID PRN Administration Wheezing Chlorhexidine Gluconate 15 ml 04/16/20 09:00 04/23/20 21:16 Chlorhexidine Gluconate 15 Ml Udc PO 15 ml BID MAGI Administration Furosemide 40 mg 04/21/20 09:00 04/24/20 06:15 Furosemide 40 Mg/4 Ml Vial IVP 40 mg BIDDIURETIC MAGI Administration Heparin Sodium (Beef Lung) 30 - 50 unit 04/24/20 05:40 04/24/20 06:30 Heparin Flush 50 Units/5 Ml Syringe IVP 50 unit PRN PRN Administration Central Line Protocol (<24 hr) Heparin Sodium (Porcine) 5,000 unit 04/16/20 09:00 04/23/20 21:16 Heparin 5,000 Unit/Ml Vial SUBQ 5,000 unit BID MAGI Administration Hydralazine HCl 20 mg 04/21/20 15:58 04/22/20 20:41 Hydralazine Inj 20 Mg/Ml Vial IVP 20 mg Q4H PRN Administration PER PHYSICIAN ORDER Hydromorphone HCl 1 mg 04/20/20 17:22 04/23/20 04:22 Hydromorphone 1 Mg/Ml Carpuject IVP 1 mg Q2HR PRN Administration PAIN Fat Emulsion Intravenous 250 mls @ 21 mls/hr 04/17/20 19:00 04/24/20 07:16 Intralipid 20% IV Infused Q24H MAGI Infusion Sodium Chloride 500 mls @ 0 mls/hr 04/18/20 20:52 04/23/20 21:47 Normal Saline 0.9% IV Infused Q24H PRN Infusion TKO RATE TKO Acetaminophen 100 mls @ 400 mls/hr 04/19/20 12:33 04/22/20 09:33 Ofirmev IV Infused Q6HR PRN Infusion Pain or fever Multivitamins 10 ml/ Chromium/ 2,016 mls @ 63.157 mls/hr 04/21/20 19:00 04/23/20 18:56 Copper/Manganese/Seleni/Zn 1 IV 63.1 mls/hr ml/ Potassium Phosphate 15 TPN/PPN MAGI Administration mmol/ Amino Ac/Electrol/ Dextrose/Calcium Protocol Insulin Human Regular 3 - 11 unit 04/19/20 12:00 04/24/20 06:02 Insulin Regular Human 300 Unit/3 Ml Vial SUBQ 5 unit Q6HR MAGI Administration Protocol Ketorolac Tromethamine 30 mg 04/21/20 00:08 04/24/20 00:38 Ketorolac 30 Mg/Ml Vial IVP 04/26/20 00:07 30 mg Q6HR PRN Administration PAIN Lorazepam 0.5 mg 04/20/20 17:24 04/20/20 21:35 Lorazepam 2 Mg/Ml Vial IVP 0.5 mg Q4H PRN Administration Anxiety Metoprolol Tartrate 5 mg 04/20/20 13:00 04/24/20 06:27 Metoprolol 5 Mg/5 Ml Vial IVP Not Given Q6HR MAGI Multi-Ingredient Ointment 1 applic 04/18/20 03:24 04/22/20 13:28 Zinc Oxide 20% Oint 30 Gm Tube TOP 1 applic PRN PRN Administration Skin Care Pantoprazole Sodium 40 mg 04/16/20 07:00 04/24/20 06:16 Pantoprazole 40 Mg Vial IVP 40 mg QDAC MAGI Administration Sodium Chloride 10 ml 04/16/20 09:00 04/24/20 00:38 Sodium Chloride Flush 0.9% 10 Ml Syringe IVP 10 ml 0100,0900,1700 MAGI Administration Sodium Chloride 10 ml 04/16/20 01:56 04/24/20 06:30 Sodium Chloride Flush 0.9% 10 Ml Syringe IVP 10 ml PRN PRN Administration NEEDED PER PROVIDER ORDERS Sodium Chloride 20 ml 04/23/20 04:30 04/24/20 06:30 Sodium Chloride Flush 0.9% 10 Ml Syringe IVP 20 ml PRN PRN Administration After Blood Draw - Lab Result Fish Bone Diagrams: 04/24/20 06:35 04/24/20 06:35 - Additional Planning My Orders: My Active Orders 04/23/20 17:58 Telemetry- [RC] Q4HR 04/24/20 06:35 PREALBUMIN [CHEM] Routine TRIGLYCERIDES [CHEM] Routine Objective Vital Signs: Vital Signs - 24 hr 04/23/20 04/23/20 04/23/20 08:30 09:00 12:31 Temperature 36.8 C Heart Rate Heart Rate [ 72 93 Monitoring electrodes] Respiratory 21 20 Rate Blood Pressure Blood Pressure 138/80 H 135/76 H 117/70 [Right Brachial artery] O2 Saturation 99 97 04/23/20 04/23/20 04/23/20 12:45 13:13 16:00 Temperature 36.8 C Heart Rate 93 Heart Rate [ 73 Monitoring electrodes] Respiratory 21 23 Rate Blood Pressure 131/79 H Blood Pressure 146/71 H [Right Brachial artery] O2 Saturation 97 04/23/20 04/23/20 04/23/20 18:20 20:00 20:35 Temperature 36.9 C Heart Rate 69 Heart Rate [ 75 Monitoring electrodes] Respiratory 18 18 Rate Blood Pressure 132/85 H Blood Pressure 157/84 H [Right Brachial artery] O2 Saturation 96 04/23/20 04/24/20 04/24/20 23:50 00:25 04:00 Temperature 36.5 C 36.2 C L Heart Rate Heart Rate [ 74 62 Monitoring electrodes] Respiratory 18 16 Rate Blood Pressure 139/69 H Blood Pressure 150/76 H 149/62 H [Right Brachial artery] O2 Saturation 96 97 04/24/20 07:48 Temperature 36.9 C Heart Rate Heart Rate [ 65 Monitoring electrodes] Respiratory 17 Rate Blood Pressure Blood Pressure 134/66 H [Right Brachial artery] O2 Saturation 98 Oxygen O2 Source Room air I&O (Last 24 Hrs): Intake and Output Totals x24h 04/22/20 04/23/20 04/24/20 23:59 23:59 23:59 Intake Total 2804.850 2698.310 310 Output Total 3292 4544 240 Balance -487.150 -5390.690 70 - Results Results: Laboratory Results WBC 8.2 x10^3/uL (4.8-10.8) 04/24/20 06:35 RBC 3.34 10^6/uL (4.70-6.10) L 04/24/20 06:35 Hgb 10.8 g/dL (14.0-18.0) L 04/24/20 06:35 Hct 31.4 % (42.0-52.0) L 04/24/20 06:35 MCV 94.0 fL (80.0-94.0) 04/24/20 06:35 MCH 32.3 pg (27.0-31.0) H 04/24/20 06:35 MCHC 34.4 g/dL (32.0-36.0) 04/24/20 06:35 RDW 12.5 % (12.0-15.0) 04/24/20 06:35 Plt Count 176 10^3/uL (130-450) 04/24/20 06:35 MPV 10.4 fL (7.4-11.4) 04/24/20 06:35 Neut # (Auto) 6.1 10^3/uL (1.5-6.6) 04/24/20 06:35 Lymph # (Auto) 1.1 10^3/uL (1.5-3.5) L 04/24/20 06:35 [place] # (Auto) 0.6 10^3/uL (0.0-1.0) 04/24/20 06:35 Eos # (Auto) 0.2 10^3/uL (0.0-0.7) 04/24/20 06:35 Baso # (Auto) 0.0 10^3/uL (0.0-0.1) 04/24/20 06:35 Absolute Nucleated RBC 0.00 x10^3/uL 04/24/20 06:35 Nucleated RBC % 0.0 /100WBC 04/24/20 06:35 Bld Gas Analysis Time 1615 04/19/20 16:10 Sample Site A-LINE 04/19/20 16:10 ABG pH 7.32 (7.35-7.45) L 04/19/20 16:10 ABG pCO2 46 mmHg (34-45) H 04/19/20 16:10 ABG pO2 140 mmHg (80-100) H 04/19/20 16:10 ABG HCO3 23.3 mmol/L (22.0-26.0) 04/19/20 16:10 ABG Total CO2 24.7 MMOL/L (21.0-29.0) 04/19/20 16:10 ABG O2 Saturation 99 % (94-98) H 04/19/20 16:10 ABG Base Excess -2.9 mmol/L (-2.0-3.0) L 04/19/20 16:10 Nick Test NOT APPLICABLE 04/19/20 16:10 VBG pH 7.376 (7.31-7.41) 04/20/20 03:45 Ionized Calcium 1.07 mmol/L (1.15-1.33) L 04/20/20 03:45 Respiration Rate 14 b/min 04/19/20 06:25 O2 Delivery Device BiPAP 04/19/20 16:10 Vent Mode SIMV 04/19/20 06:25 FiO2 35.00 04/19/20 16:10 Tidal Volume 600 mL 04/19/20 06:25 PEEP 5 cmH2O 04/19/20 12:12 Pressure Support Vent 12 cmH2O 04/19/20 12:12 EPAP 5 cmH2O 04/19/20 16:10 IPAP 10 cmH2O 04/19/20 16:10 Sodium 133 mmol/L (135-145) L 04/24/20 06:35 Potassium 3.5 mmol/L (3.5-5.0) 04/24/20 06:35 Chloride 96 mmol/L (101-111) L 04/24/20 06:35 Carbon Dioxide 27 mmol/L (21-32) 04/24/20 06:35 Anion Gap 10.0 (6-13) 04/24/20 06:35 BUN 32 mg/dL (6-20) H 04/24/20 06:35 Creatinine 0.8 mg/dL (0.6-1.2) 04/24/20 06:35 Estimated GFR (MDRD) 93 (>89) 04/24/20 06:35 Glucose 196 mg/dL (70-100) H 04/24/20 06:35 POC Whole Bld Glucose 177 mg/dL (70 - 100) H 04/24/20 00:06 Lactic Acid 1.4 mmol/L (0.5-2.2) 04/17/20 21:54 Calcium 8.8 mg/dL (8.5-10.3) 04/24/20 06:35 Phosphorus 4.6 mg/dL (2.5-4.6) 04/24/20 06:35 Magnesium 1.7 mg/dL (1.7-2.8) 04/24/20 06:35 Total Bilirubin 0.9 mg/dL (0.2-1.0) 04/24/20 06:35 AST 30 IU/L (10-42) 04/24/20 06:35 ALT 30 IU/L (10-60) 04/24/20 06:35 Alkaline Phosphatase 88 IU/L (42-121) 04/24/20 06:35 Troponin I High Sens 13.4 ng/L (2.3-19.7) 04/16/20 02:25 Total Protein 6.0 g/dL (6.7-8.2) L 04/24/20 06:35 Albumin 2.8 g/dL (3.2-5.5) L 04/24/20 06:35 Globulin 3.2 g/dL (2.1-4.2) 04/24/20 06:35 Albumin/Globulin Ratio 0.9 (1.0-2.2) L 04/24/20 06:35 Prealbumin 12 mg/dL (18-45) L 04/20/20 03:45 Triglycerides 106 mg/dL (-149) 04/20/20 03:45 Lipase 13 U/L (22-51) L 04/15/20 18:40 Vitamin B12 244 pg/mL (180-914) 04/20/20 03:45 Nasal Adenovirus (PCR) NOT DETECTED 04/15/20 20:15 Nasal B. parapertussis DNA (PCR) NOT DETECTED 04/15/20 20:15 Nasal Coronavir 229E PCR NOT DETECTED 04/15/20 20:15 Nasal Coronavir HKU1 PCR NOT DETECTED 04/15/20 20:15 Nasal Coronavir NL63 PCR NOT DETECTED 04/15/20 20:15 Nasal Coronavir OC43 PCR NOT DETECTED 04/15/20 20:15 Nasal Enterovir/Rhinovir PCR NOT DETECTED 04/15/20 20:15 Nasal Influenza B PCR NOT DETECTED 04/15/20 20:15 Nasal Influenza A PCR NOT DETECTED 04/15/20 20:15 Nasal Parainfluen 1 PCR NOT DETECTED 04/15/20 20:15 Nasal Parainfluen 2 PCR NOT DETECTED 04/15/20 20:15 Nasal Parainfluen 3 PCR NOT DETECTED 04/15/20 20:15 Nasal Parainfluen 4 PCR NOT DETECTED 04/15/20 20:15 Nasal RSV (PCR) NOT DETECTED 04/15/20 20:15 Nasal Screen MRSA (PCR) NEGATIVE (NEGATIVE) 04/16/20 02:25 Nasal B.pertussis DNA PCR NOT DETECTED 04/15/20 20:15 Nasal C.pneumoniae (PCR) NOT DETECTED 04/15/20 20:15 Rashaad Human Metapneumo PCR NOT DETECTED 04/15/20 20:15 Nasal M.pneumoniae (PCR) NOT DETECTED 04/15/20 20:15 Nasal SARS-CoV-2 (PCR) NOT DETECTED 04/15/20 20:15 - Procedures Procedures: Procedures TOTAL KNEE REPLACEMENT (11/30/12) Sepsis Event Note (H) - Evaluation Current Stage of Sepsis: Sepsis Possible source of Sepsis: positive: GI tract/intra-abdominal - Sepsis Criteria Sepsis Criteria: WBC count greater than 12,000 or less than 4000, Metabolic: lactate > 2 mmol/L ABX Reporting Has patient been on IV antibiotics over the past 48 hours?: No
[2020-04-24 08:30] LABS: PREALBUMIN 18 mg/dL (18-45)
[2020-04-24] MEDS: HEPARIN 5,000 UNIT/ML VIAL SUBQ SCH ×2 (09:20→20:44)
[2020-04-24] MEDS: CHLORHEXIDINE GLUCONATE 15 ML UDC PO SCH (09:21)
--- NOTE | 2020-04-24 17:09 | PROVIDER PROGRESS NOTE ---
Subjective - Prog Note Date Prog Note Date: 04/24/20 - Subjective Pt reports feeling: Improved Objective - Vital Signs/Intake & Output Vital Signs: Vital Signs x48h Temp Pulse Resp BP BP Pulse Ox 04/24/20 16:00 36.5 C 71 22 134/61 H 100 04/24/20 12:42 150/75 H 04/24/20 12:00 37 C 71 20 111/65 96 Intake & Output: Intake & Output 04/21/20 04/22/20 04/23/20 04/24/20 23:59 23:59 23:59 23:59 Intake Total 3634.137 2804.850 2698.310 4687.417 Output Total 5185 8592 4544 1255 Balance -1550.863 -487.150 -0064.033 1938.417 - Objective General Appearance: positive: No acute distress, Alert Eyes Bilateral: positive: Normal inspection, PERRL ENT: positive: No signs of dehydration Neck: positive: No JVD Respiratory: positive: No respiratory distress Abdomen: positive: Non-tender, No distention Extremities: positive: No pedal edema - Lab Results Fish Bones: 04/24/20 06:35 04/24/20 06:35 Other Labs: Lab Results x24hrs 04/24/20 04/24/20 04/24/20 Range/Units 06:35 06:35 06:35 WBC 8.2 (4.8-10.8) x10^3/uL RBC 3.34 L (4.70-6.10) 10^6/uL Hgb 10.8 L (14.0-18.0) g/dL Hct 31.4 L (42.0-52.0) % MCV 94.0 (80.0-94.0) fL MCH 32.3 H (27.0-31.0) pg MCHC 34.4 (32.0-36.0) g/dL RDW 12.5 (12.0-15.0) % Plt Count 176 (130-450) 10^3/uL MPV 10.4 (7.4-11.4) fL Neut # (Auto) 6.1 (1.5-6.6) 10^3/uL Lymph # (Auto) 1.1 L (1.5-3.5) 10^3/uL [place] # (Auto) 0.6 (0.0-1.0) 10^3/uL Eos # (Auto) 0.2 (0.0-0.7) 10^3/uL Baso # (Auto) 0.0 (0.0-0.1) 10^3/uL Absolute Nucleated RBC 0.00 x10^3/uL Nucleated RBC % 0.0 /100WBC Sodium 133 L (135-145) mmol/L Potassium 3.5 (3.5-5.0) mmol/L Chloride 96 L (101-111) mmol/L Carbon Dioxide 27 (21-32) mmol/L Anion Gap 10.0 (6-13) BUN 32 H (6-20) mg/dL Creatinine 0.8 (0.6-1.2) mg/dL Estimated GFR (MDRD) 93 (>89) Glucose 196 H (70-100) mg/dL POC Whole Bld Glucose (70 - 100) mg/dL Calcium 8.8 (8.5-10.3) mg/dL Phosphorus 4.6 (2.5-4.6) mg/dL Magnesium 1.7 (1.7-2.8) mg/dL Total Bilirubin 0.9 (0.2-1.0) mg/dL AST 30 (10-42) IU/L ALT 30 (10-60) IU/L Alkaline Phosphatase 88 (42-121) IU/L Total Protein 6.0 L (6.7-8.2) g/dL Albumin 2.8 L (3.2-5.5) g/dL Globulin 3.2 (2.1-4.2) g/dL Albumin/Globulin Ratio 0.9 L (1.0-2.2) Prealbumin 18 (18-45) mg/dL Triglycerides 111 ( - 149) mg/dL 04/24/20 04/23/20 Range/Units 00:06 17:51 WBC (4.8-10.8) x10^3/uL RBC (4.70-6.10) 10^6/uL Hgb (14.0-18.0) g/dL Hct (42.0-52.0) % MCV (80.0-94.0) fL MCH (27.0-31.0) pg MCHC (32.0-36.0) g/dL RDW (12.0-15.0) % Plt Count (130-450) 10^3/uL MPV (7.4-11.4) fL Neut # (Auto) (1.5-6.6) 10^3/uL Lymph # (Auto) (1.5-3.5) 10^3/uL [place] # (Auto) (0.0-1.0) 10^3/uL Eos # (Auto) (0.0-0.7) 10^3/uL Baso # (Auto) (0.0-0.1) 10^3/uL Absolute Nucleated RBC x10^3/uL Nucleated RBC % /100WBC Sodium (135-145) mmol/L Potassium (3.5-5.0) mmol/L Chloride (101-111) mmol/L Carbon Dioxide (21-32) mmol/L Anion Gap (6-13) BUN (6-20) mg/dL Creatinine (0.6-1.2) mg/dL Estimated GFR (MDRD) (>89) Glucose (70-100) mg/dL POC Whole Bld Glucose 177 H 172 H (70 - 100) mg/dL Calcium (8.5-10.3) mg/dL Phosphorus (2.5-4.6) mg/dL Magnesium (1.7-2.8) mg/dL Total Bilirubin (0.2-1.0) mg/dL AST (10-42) IU/L ALT (10-60) IU/L Alkaline Phosphatase (42-121) IU/L Total Protein (6.7-8.2) g/dL Albumin (3.2-5.5) g/dL Globulin (2.1-4.2) g/dL Albumin/Globulin Ratio (1.0-2.2) Prealbumin (18-45) mg/dL Triglycerides ( - 149) mg/dL Sepsis Event Note (H) - Evaluation Current Stage of Sepsis: Sepsis Possible source of Sepsis: positive: GI tract/intra-abdominal - Sepsis Criteria Sepsis Criteria: WBC count greater than 12,000 or less than 4000, Metabolic: lactate > 2 mmol/L Assessment/Plan - Problem List (1) Obstruction concurrent with and due to internal hernia of abdomen Impression: continued daily improvement. continue clears for now.
[2020-04-24] MEDS: FAT EMULSION 20% 250 ML IV SCH (18:59)
[2020-04-24] MEDS ORDERED: TPN (CLINIMIX E 5/15) 2,000 ML IV SCH (19:00)
[2020-04-25] MEDS: SODIUM CHLORIDE FLUSH 0.9% 10 ML SYRINGE IVP SCH ×3 (01:58→17:55)
[2020-04-25] MEDS: INSULIN REGULAR HUMAN 300 UNIT/3 ML VIAL SUBQ SCH ×4 (02:03→17:28)
[2020-04-25] MEDS: KETOROLAC 30 MG/ML VIAL IVP PRN ×2 (02:06→17:59)
[2020-04-25] MEDS: METOPROLOL 5 MG/5 ML VIAL IVP SCH ×4 (02:10→17:53)
[2020-04-25] MEDS: FUROSEMIDE 40 MG/4 ML VIAL IVP SCH (06:38)
[2020-04-25] MEDS: PANTOPRAZOLE 40 MG VIAL IVP SCH (06:55)
[2020-04-25] MEDS: SODIUM CHLORIDE FLUSH 0.9% 10 ML SYRINGE IVP PRN (06:56)
[2020-04-25 07:14] LABS: BASOPHILS % (AUTO) 0.4 %; EOSINOPHILS # (AUTO) 0.2 10^3/uL (0.0-0.7); EOSINOPHILS % (AUTO) 2.2 %; HGB - HEMOGLOBIN 10.3 g/dL (14.0-18.0); LYMPHOCYTES # (AUTO) 0.9 10^3/uL (1.5-3.5); LYMPHOCYTES % (AUTO) 10.2 %; MEAN CORPUSCULAR HEMOGLOBIN 32.1 pg (27.0-31.0); MEAN CORPUSCULAR HGB CONC 34.1 g/dL (32.0-36.0); MEAN CORPUSCULAR VOLUME 94.1 fL (80.0-94.0); MEAN PLATELET VOLUME 10.5 fL (7.4-11.4); MONOCYTES # (AUTO) 0.5 10^3/uL (0.0-1.0); MONOCYTES % (AUTO) 5.7 %; NEUTROPHILS # (AUTO) 7.2 10^3/uL (1.5-6.6); NEUTROPHILS % (AUTO) 79.9 %; PLT - PLATELET COUNT 167 10^3/uL (130-450); RED BLOOD COUNT 3.21 10^6/uL (4.70-6.10); RED CELL DISTRIBUTION WIDTH 12.3 % (12.0-15.0)
[2020-04-25 07:34] LABS: ALBUMIN 2.8 g/dL (3.2-5.5); ALBUMIN/GLOBULIN RATIO 0.9 (1.0-2.2); BILIRUBIN,TOTAL 0.9 mg/dL (0.2-1.0); CALCIUM 8.6 mg/dL (8.5-10.3); CREATININE 0.7 mg/dL (0.6-1.2); MAGNESIUM 1.6 mg/dL (1.7-2.8); PHOSPHORUS 3.6 mg/dL (2.5-4.6)
[2020-04-25] MEDS: ACETAMINOPHEN 1,000 MG/100 ML 100 ML IV PRN (08:27)
[2020-04-25] MEDS: HEPARIN 5,000 UNIT/ML VIAL SUBQ SCH ×2 (08:28→20:53)
--- NOTE | 2020-04-25 17:22 | PROVIDER PROGRESS NOTE ---
Subjective - Prog Note Date Prog Note Date: 04/25/20 - Subjective Subjective: Reports feeling well. States his pain is controlled overall. He was able to have a bowel movement. He is passing gas. Denies nausea or vomiting. Tolerating a liquid diet. Current Medications - Current Medications Current Medications: Active Medications Albuterol/Ipratropium (Ipratropium/Albuterol 3 Ml Neb) 3 ml INH RTQID PRN PRN Reason: Wheezing Last Admin: 04/18/20 15:20 Dose: 3 ml Documented by: Heparin Sodium (Beef Lung) (Heparin Flush 50 Units/5 Ml Syringe) 30 - 50 unit IVP PRN PRN PRN Reason: Central Line Protocol (<24 hr) Last Admin: 04/24/20 06:30 Dose: 50 unit Documented by: Heparin Sodium (Porcine) (Heparin 5,000 Unit/Ml Vial) 5,000 unit SUBQ BID MAGI Last Admin: 04/25/20 08:28 Dose: 5,000 unit Documented by: Hydromorphone HCl (Hydromorphone 1 Mg/Ml Carpuject) 1 mg IVP Q2HR PRN PRN Reason: PAIN Last Admin: 04/23/20 04:22 Dose: 1 mg Documented by: Fat Emulsion Intravenous (Intralipid 20%) 250 mls @ 21 mls/hr IV Q24H [facility] [place] Stop: 04/25/20 18:59 Last Infusion: 04/25/20 07:50 Dose: Infused Documented by: Sodium Chloride (Normal Saline 0.9%) 500 mls @ 0 mls/hr IV Q24H PRN PRN Reason: TKO RATE Last Infusion: 04/23/20 21:47 Dose: Infused Documented by: Acetaminophen (Ofirmev) 100 mls @ 400 mls/hr IV Q6HR PRN PRN Reason: Pain or fever Last Infusion: 04/25/20 09:20 Dose: Infused Documented by: Sodium Chloride (Normal Saline 0.9%) 500 mls @ 0 mls/hr IV Q24H PRN PRN Reason: TKO RATE Amino Ac/Electrol/Dextrose/Calcium (Clinimix E 5%-15% Solution) 2,000 mls @ 40 mls/hr IV TPN/PPN [facility]; Protocol Stop: 04/25/20 18:59 Last Admin: 04/24/20 19:00 Dose: 63 mls/hr Documented by: Insulin Human Regular (Insulin Regular Human 300 Unit/3 Ml Vial) 3 - 11 unit SUBQ Q6HR [facility] [place]; Protocol Last Admin: 04/25/20 17:28 Dose: 3 unit Documented by: Ketorolac Tromethamine (Ketorolac 30 Mg/Ml Vial) 30 mg IVP Q6HR PRN PRN Reason: PAIN Stop: 04/26/20 00:07 Last Admin: 04/25/20 17:59 Dose: 30 mg Documented by: Lorazepam (Lorazepam 2 Mg/Ml Vial) 0.5 mg IVP Q4H PRN PRN Reason: Anxiety Last Admin: 04/20/20 21:35 Dose: 0.5 mg Documented by: Metoprolol Tartrate (Metoprolol 5 Mg/5 Ml Vial) 5 mg IVP Q6HR [facility] [place] Last Admin: 04/25/20 17:53 Dose: 5 mg Documented by: Multi-Ingredient Ointment (Zinc Oxide 20% Oint 30 Gm Tube) 1 applic TOP PRN PRN PRN Reason: Skin Care Last Admin: 04/22/20 13:28 Dose: 1 applic Documented by: Pantoprazole Sodium (Pantoprazole 40 Mg Vial) 40 mg IVP QDAC [facility] [place] Last Admin: 04/25/20 06:55 Dose: 40 mg Documented by: Sodium Chloride (Sodium Chloride Flush 0.9% 10 Ml Syringe) 10 ml IVP 0100,0900,1700 [facility] [place] Last Admin: 04/25/20 17:55 Dose: 10 ml Documented by: Sodium Chloride (Sodium Chloride Flush 0.9% 10 Ml Syringe) 10 ml IVP PRN PRN PRN Reason: NEEDED PER PROVIDER ORDERS Last Admin: 04/25/20 06:56 Dose: 80 ml Documented by: Sodium Chloride (Sodium Chloride Flush 0.9% 10 Ml Syringe) 20 ml IVP PRN PRN PRN Reason: After Blood Draw Last Admin: 04/24/20 06:30 Dose: 20 ml Documented by: Aspirin 81 mg PO DAILY 01/26/17 Atorvastatin [Lipitor] 80 mg PO DAILY 01/26/17 Metoprolol Tartrate 25 mg PO DAILY 01/26/17 Sertraline [Zoloft] 100 mg PO DAILY 01/26/17 Albuterol Sulfate [Proair Hfa Inhaler] 90 mcg INH PRN PRN 04/15/20 Alpha Lipoic Acid 600 mg PO DAILY 04/15/20 Clobetasol 0.05% Oint [Temovate 0.05% Oint] 10 mg TOP DAILY 04/15/20 Gabapentin [Neurontin] 300 mg PO BID 04/15/20 Hydrocortisone/Pramoxine [Hydrocort-Pramoxine 2.5-1% Crm] 10 mg TOP DAILY 04/15/20 Ipratropium [Atrovent] 42 mcg INH HS 04/15/20 LORazepam [Ativan] 0.5 mg PO PRN PRN 04/15/20 Mupirocin Calcium [Mupirocin] 15 mg TOP DAILY 04/15/20 Nitroglycerin [Nitrostat] 1 tab SL DAILY 04/15/20 Oxybutynin [Ditropan] 10 mg PO DAILY 04/15/20 Tamsulosin [Flomax] 0.4 mg PO DAILY 04/15/20 Triamcinolone 0.1% Oint [Kenalog 0.1% Oint] 1 mg TOP DAILY 04/15/20 metroNIDAZOLE 0.75% GEL 2 gm TOP DAILY 04/15/20 Objective - Vital Signs/Intake & Output Reviewed Vital Signs: Yes Vital Signs: Vital Signs x48h Temp Pulse Resp BP BP Pulse Ox 04/25/20 15:48 36.5 C 67 18 121/56 L 96 04/25/20 11:57 36.6 C 66 22 123/64 99 04/25/20 11:54 123/64 Intake & Output: Intake & Output 04/22/20 04/23/20 04/24/20 04/25/20 23:59 23:59 23:59 23:59 Intake Total 2804.850 2698.310 5496.000 1190 Output Total 3292 4544 2040 2800 Balance -487.150 -32762317.008 4293.000 -1610 - Objective General Appearance: positive: No acute distress, Alert Eyes Bilateral: positive: Normal inspection, Conjunctivae nml ENT: positive: ENT inspection nml, Other (Dobhoff in place.) Neck: positive: Nml inspection Respiratory: positive: No respiratory distress. negative: Wheezes, Rales Cardiovascular: positive: Regular rate & rhythm. negative: Irregularly irregular, Tachycardia Abdomen: positive: Non-tender, Nml bowel sounds, No distention, Other (Dressings in place. 2 LYNDA drains noted.). negative: Tenderness, Guarding, Rebound Skin: positive: Warm, Dry Extremities: positive: No pedal edema Neurologic/Psychiatric: negative: Disoriented to person, Disoriented to place - Lab Results Fish Bones: 04/25/20 06:51 04/25/20 06:51 Other Labs: Lab Results x24hrs 04/25/20 04/25/20 04/25/20 Range/Units 16:45 10:59 06:51 WBC (4.8-10.8) x10^3/uL RBC (4.70-6.10) 10^6/uL Hgb (14.0-18.0) g/dL Hct (42.0-52.0) % MCV (80.0-94.0) fL MCH (27.0-31.0) pg MCHC (32.0-36.0) g/dL RDW (12.0-15.0) % Plt Count (130-450) 10^3/uL MPV (7.4-11.4) fL Neut # (Auto) (1.5-6.6) 10^3/uL Lymph # (Auto) (1.5-3.5) 10^3/uL [place] # (Auto) (0.0-1.0) 10^3/uL Eos # (Auto) (0.0-0.7) 10^3/uL Baso # (Auto) (0.0-0.1) 10^3/uL Absolute Nucleated RBC x10^3/uL Nucleated RBC % /100WBC Sodium (135-145) mmol/L Potassium (3.5-5.0) mmol/L Chloride (101-111) mmol/L Carbon Dioxide (21-32) mmol/L Anion Gap (6-13) BUN (6-20) mg/dL Creatinine (0.6-1.2) mg/dL Estimated GFR (MDRD) (>89) Glucose (70-100) mg/dL POC Whole Bld Glucose 156 H 214 H (70 - 100) mg/dL Calcium (8.5-10.3) mg/dL Phosphorus (2.5-4.6) mg/dL Magnesium (1.7-2.8) mg/dL Total Bilirubin (0.2-1.0) mg/dL AST (10-42) IU/L ALT (10-60) IU/L Alkaline Phosphatase (42-121) IU/L Troponin I High Sens 14.1 (2.3-19.7) ng/L Total Protein (6.7-8.2) g/dL Albumin (3.2-5.5) g/dL Globulin (2.1-4.2) g/dL Albumin/Globulin Ratio (1.0-2.2) 04/25/20 04/25/20 04/25/20 Range/Units 06:51 06:51 05:41 WBC 9.0 (4.8-10.8) x10^3/uL RBC 3.21 L (4.70-6.10) 10^6/uL Hgb 10.3 L (14.0-18.0) g/dL Hct 30.2 L (42.0-52.0) % MCV 94.1 H (80.0-94.0) fL MCH 32.1 H (27.0-31.0) pg MCHC 34.1 (32.0-36.0) g/dL RDW 12.3 (12.0-15.0) % Plt Count 167 (130-450) 10^3/uL MPV 10.5 (7.4-11.4) fL Neut # (Auto) 7.2 H (1.5-6.6) 10^3/uL Lymph # (Auto) 0.9 L (1.5-3.5) 10^3/uL [place] # (Auto) 0.5 (0.0-1.0) 10^3/uL Eos # (Auto) 0.2 (0.0-0.7) 10^3/uL Baso # (Auto) 0.0 (0.0-0.1) 10^3/uL Absolute Nucleated RBC 0.00 x10^3/uL Nucleated RBC % 0.0 /100WBC Sodium 131 L (135-145) mmol/L Potassium 3.8 (3.5-5.0) mmol/L Chloride 96 L (101-111) mmol/L Carbon Dioxide 27 (21-32) mmol/L Anion Gap 8.0 (6-13) BUN 29 H (6-20) mg/dL Creatinine 0.7 (0.6-1.2) mg/dL Estimated GFR (MDRD) 108 (>89) Glucose 178 H (70-100) mg/dL POC Whole Bld Glucose 194 H (70 - 100) mg/dL Calcium 8.6 (8.5-10.3) mg/dL Phosphorus 3.6 (2.5-4.6) mg/dL Magnesium 1.6 L (1.7-2.8) mg/dL Total Bilirubin 0.9 (0.2-1.0) mg/dL AST 32 (10-42) IU/L ALT 33 (10-60) IU/L Alkaline Phosphatase 91 (42-121) IU/L Troponin I High Sens (2.3-19.7) ng/L Total Protein 6.0 L (6.7-8.2) g/dL Albumin 2.8 L (3.2-5.5) g/dL Globulin 3.2 (2.1-4.2) g/dL Albumin/Globulin Ratio 0.9 L (1.0-2.2) 04/24/20 04/24/20 04/24/20 Range/Units 20:35 12:00 05:21 WBC (4.8-10.8) x10^3/uL RBC (4.70-6.10) 10^6/uL Hgb (14.0-18.0) g/dL Hct (42.0-52.0) % MCV (80.0-94.0) fL MCH (27.0-31.0) pg MCHC (32.0-36.0) g/dL RDW (12.0-15.0) % Plt Count (130-450) 10^3/uL MPV (7.4-11.4) fL Neut # (Auto) (1.5-6.6) 10^3/uL Lymph # (Auto) (1.5-3.5) 10^3/uL [place] # (Auto) (0.0-1.0) 10^3/uL Eos # (Auto) (0.0-0.7) 10^3/uL Baso # (Auto) (0.0-0.1) 10^3/uL Absolute Nucleated RBC x10^3/uL Nucleated RBC % /100WBC Sodium (135-145) mmol/L Potassium (3.5-5.0) mmol/L Chloride (101-111) mmol/L Carbon Dioxide (21-32) mmol/L Anion Gap (6-13) BUN (6-20) mg/dL Creatinine (0.6-1.2) mg/dL Estimated GFR (MDRD) (>89) Glucose (70-100) mg/dL POC Whole Bld Glucose 201 H 209 H (70 - 100) mg/dL Calcium (8.5-10.3) mg/dL Phosphorus (2.5-4.6) mg/dL Magnesium (1.7-2.8) mg/dL Total Bilirubin (0.2-1.0) mg/dL AST (10-42) IU/L ALT (10-60) IU/L Alkaline Phosphatase (42-121) IU/L Troponin I High Sens 17.5 (2.3-19.7) ng/L Total Protein (6.7-8.2) g/dL Albumin (3.2-5.5) g/dL Globulin (2.1-4.2) g/dL Albumin/Globulin Ratio (1.0-2.2) Sepsis Event Note (H) - Evaluation Current Stage of Sepsis: Sepsis Possible source of Sepsis: positive: GI tract/intra-abdominal - Sepsis Criteria Sepsis Criteria: WBC count greater than 12,000 or less than 4000, Metabolic: lactate > 2 mmol/L Assessment/Plan - Problem List (1) Obstruction concurrent with and due to internal hernia of abdomen Impression: He is postop ex lap with small bowel resection of necrotic ileum. He is tolerating a diet and tube feeds. Pain is controlled. He will need a skilled nurse facility on discharge but this will be only if he does not have an NG tube or TPN per [facility]'s request. Management as per general surgery. (2) History of COPD Impression: Stable and not in exacerbation. Continue albuterol as needed. (3) History of coronary artery disease Impression: Stable. I resumed his home aspirin, beta-raymundo, statin. (4) Hypertension Impression: Hypertensive with systolic in the 140s. I resumed his home metoprolol orally to day. We will add a second antihypertensive if necessary. (5) Pneumonia Impression: There was concern for aspiration pneumonia during his hospitalization. He completed treatment with Zosyn. He is currently saturating well on room air.
--- NOTE | 2020-04-25 20:10 | PROVIDER PROGRESS NOTE ---
Progress Note Subjective 80-year-old male who presents with multiple comorbid states including CAD, FL, status post multiple cardiac stents, morbid obesity who was evaluated in the emergency room for nearly 12 hours of abdominal pain and CT findings notable for internal herniation; patient taken emergently for below listed procedure and noted for 54 inches of necrotic ileum for which damage control laparotomy was undertaken with resection, discontinuity, and open abdominal dressing. INDEX Procedure Performed: 1. Exploratory laparotomy 2. Lysis of adhesions 3. Partial omentectomy 4. Small bowel resection with discontinuity 5. Abdominal washout 6. Wide drainage 7. Open abdomen 8. Right internal jugular triple-lumen catheter 9. Right femoral arterial line 10. Open appendectomy In the interim patient has been weaned significantly off Daniel-Synephrine. Vasopressin weaned. Patient has normalized for heart rate. Normalized lactic acidosis. Yesterday, status post: Procedure Performed: 1. Second look laparotomy/re-exploration 2. Small bowel resection 3. Small bowel anastomosis 4. Abdominal washout 5. Wide local drainage 6. Closure of mesenteric defect 7. Possible ventral hernia repair INTERIM: A. Patient had ultimately been weaned off of pressors; initially required phenylephrine which was augmented with vasopressin; ultimately these were both weaned without any complication. Next B. Patient was ultimately transitioned from propofol to Precedex in anticipation of ventilatory weaning and planned extubation. Patient was maintained on fentanyl for analgesia. C. Patient was maintained for endotracheal tube was successfully extubated POD#2 following the patient's second operative/reoperative intervention. D. Transferred out of the ICU. TPN and started on trickle tube feeds per NGT (w eighted). Positive bowel function today. E. Family has been made aware of the patient's progress in recovery. Objective Afebrile hemodynamically acceptable Patient sedated but arousable and following basic commands No acute distress resting comfortably in bed; intubated and sedated Lungs clear to auscultation bilaterally no wheezes rales or rhonchi Radial pulses palpable bilaterally with good capillary refill Abdomen soft nontender nondistended no rebound no guarding Midline wound dressed. Dressing clean dry and intact. Martin drains serosanguineous. Moving all extremities with no sensorimotor deficits Cranial nerves II through XII grossly intact Assessment and plan: 80-year-old male postoperative day #8 status post second look laparotomy/damage control surgery with congregation of bowel continuity and abdominal closure of fascial defect. Presented with ischemic bowel/necrotic ileum from internal herniation. Multiple comorbid states. Septic shock now resolved. Extubated with no complications as it relates to Hx of COPD. Transferred out of the ICU. Positive resumption of bowel function. Plan going forward is as follows: (1) GI - hold intravenous fluid given fluid retention, discontinue parenteral nutrition resolving ileus thus will advance trickle feeds by Dobbhoff with gracious assistance from Nutrition, to whom we are indebted to for their management of the patient's caloric needs. Will advance diet tomorrow with full liquids. We will also consider speech and swallow evaluation. (2) SURGERY - Continue MARTIN X2. Abdominal binder. Wound care continue packing midline wound in several days; will continue QOD. We will plan delayed primary closure. (3) Renal/Lytes - Renal indices within normal limits. Continue prn Diuresis. (4) Respiratory - CPAP as necessary. Repeat chest x-ray to assess for residual infiltrates. Antibiotics for 7 to 10 days total. (5) Heme - Will continue with mechanical DVT ppx. H/H stable. Thrombocytopenia resolved; will resume chemical ppx tomorrow. (6) Cardiovascular - HD acceptable. Will need to remove TLC once peripheral IV established. (7) Neuro - prn narcotics and continue neuropathic pain regimen. (8) Continue to greatly appreciate the hospitalist input with regard to this complex patient. (9) ENDOCRINOLOGY - continue insulin sliding scale. (10) Infectious Disease - continue Zosyn for broad coverage. Leave midline wound open. Antibiotic should also cover concern for pulmonary infiltrates. 10 days total. Leukocytosis resolved. Inflammatory markers resolved. Continue current management. (11) we will continue physical therapy and Occupational Therapy.
[2020-04-25] MEDS: METOPROLOL TARTRATE 25 MG TABLET PO SCH (20:53)
[2020-04-25] MEDS: GABAPENTIN 300 MG CAPSULE PO SCH (20:53)
[2020-04-26] MEDS: SODIUM CHLORIDE FLUSH 0.9% 10 ML SYRINGE IVP SCH ×3 (00:28→17:14)
[2020-04-26] MEDS: INSULIN REGULAR HUMAN 300 UNIT/3 ML VIAL SUBQ SCH ×2 (00:28→06:18)
[2020-04-26 05:37] LABS: BASOPHILS % (AUTO) 0.4 %; EOSINOPHILS # (AUTO) 0.3 10^3/uL (0.0-0.7); EOSINOPHILS % (AUTO) 2.6 %; HGB - HEMOGLOBIN 10.6 g/dL (14.0-18.0); LYMPHOCYTES % (AUTO) 10.2 %; MEAN CORPUSCULAR HEMOGLOBIN 32.6 pg (27.0-31.0); MEAN CORPUSCULAR HGB CONC 33.5 g/dL (32.0-36.0); MEAN CORPUSCULAR VOLUME 97.2 fL (80.0-94.0); MEAN PLATELET VOLUME 10.6 fL (7.4-11.4); MONOCYTES # (AUTO) 0.6 10^3/uL (0.0-1.0); MONOCYTES % (AUTO) 5.9 %; NEUTROPHILS # (AUTO) 8.1 10^3/uL (1.5-6.6); NEUTROPHILS % (AUTO) 79.7 %; PLT - PLATELET COUNT 184 10^3/uL (130-450); RED BLOOD COUNT 3.25 10^6/uL (4.70-6.10); RED CELL DISTRIBUTION WIDTH 12.4 % (12.0-15.0); WHITE BLOOD COUNT 10.1 x10^3/uL (4.8-10.8)
[2020-04-26 05:43] LABS: BILIRUBIN,TOTAL 1.1 mg/dL (0.2-1.0); CALCIUM 8.6 mg/dL (8.5-10.3); CREATININE 0.7 mg/dL (0.6-1.2); MAGNESIUM 1.9 mg/dL (1.7-2.8); PHOSPHORUS 2.7 mg/dL (2.5-4.6)
[2020-04-26] MEDS: PANTOPRAZOLE 40 MG VIAL IVP SCH (06:18)
--- NOTE | 2020-04-26 07:34 | PROVIDER PROGRESS NOTE ---
Subjective - Prog Note Date Prog Note Date: 04/26/20 - Subjective Subjective: Reports feeling better. Tolerating a diet. Continues to have bowel movements. Denies abdominal pain. Current Medications - Current Medications Current Medications: Active Medications Acetaminophen (Acetaminophen 325 Mg Tablet) 650 mg PO Q4HR PRN PRN Reason: Pain or Fever > 38C (100.4F) Last Admin: 04/26/20 11:47 Dose: 650 mg Documented by: Albuterol/Ipratropium (Ipratropium/Albuterol 3 Ml Neb) 3 ml INH RTQID PRN PRN Reason: Wheezing Last Admin: 04/18/20 15:20 Dose: 3 ml Documented by: Aspirin (Aspirin Chew 81 Mg Tablet) 81 mg PO DAILY [facility] Last Admin: 04/26/20 09:08 Dose: 81 mg Documented by: Atorvastatin Calcium (Atorvastatin 10 Mg Tablet) 80 mg PO DAILY [facility] Last Admin: 04/26/20 09:13 Dose: 80 mg Documented by: Docusate Sodium (Docusate Sodium 100 Mg Capsule) 100 mg PO BID [facility] Gabapentin (Gabapentin 300 Mg Capsule) 300 mg PO BID [facility] Last Admin: 04/26/20 09:08 Dose: 300 mg Documented by: Heparin Sodium (Beef Lung) (Heparin Flush 50 Units/5 Ml Syringe) 30 - 50 unit IVP PRN PRN PRN Reason: Central Line Protocol (<24 hr) Last Admin: 04/24/20 06:30 Dose: 50 unit Documented by: Heparin Sodium (Porcine) (Heparin 5,000 Unit/Ml Vial) 5,000 unit SUBQ BID [facility] Last Admin: 04/26/20 09:05 Dose: 5,000 unit Documented by: Hydromorphone HCl (Hydromorphone 1 Mg/Ml Carpuject) 1 mg IVP Q2HR PRN PRN Reason: PAIN Last Admin: 04/23/20 04:22 Dose: 1 mg Documented by: Sodium Chloride (Normal Saline 0.9%) 500 mls @ 0 mls/hr IV Q24H PRN PRN Reason: TKO RATE Last Infusion: 04/23/20 21:47 Dose: Infused Documented by: Sodium Chloride (Normal Saline 0.9%) 500 mls @ 0 mls/hr IV Q24H PRN PRN Reason: TKO RATE Insulin Aspart (Insulin Aspart 300 Unit/3 Ml Pen) 3 - 11 unit SUBQ 0800,1200,1700,2100 [facility]; Protocol Last Admin: 04/26/20 17:14 Dose: 3 unit Documented by: Lorazepam (Lorazepam 2 Mg/Ml Vial) 0.5 mg IVP Q4H PRN PRN Reason: Anxiety Last Admin: 04/20/20 21:35 Dose: 0.5 mg Documented by: Metoprolol Tartrate (Metoprolol Tartrate 25 Mg Tablet) 25 mg PO BID [facility] Last Admin: 04/26/20 09:08 Dose: 25 mg Documented by: Multi-Ingredient Ointment (Zinc Oxide 20% Oint 30 Gm Tube) 1 applic TOP PRN PRN PRN Reason: Skin Care Last Admin: 04/22/20 13:28 Dose: 1 applic Documented by: Pantoprazole Sodium (Pantoprazole 40 Mg Vial) 40 mg IVP QDAC [facility] Last Admin: 04/26/20 06:18 Dose: 40 mg Documented by: Polyethylene Glycol (Polyethylene Glycol 3350 17 Gm Packet) 17 gm PO BID [facility] Sertraline HCl (Sertraline 25 Mg Tablet) 100 mg PO DAILY [facility] Last Admin: 04/26/20 09:08 Dose: 100 mg Documented by: Sodium Chloride (Sodium Chloride Flush 0.9% 10 Ml Syringe) 10 ml IVP 0100,0900,1700 [facility] Last Admin: 04/26/20 17:14 Dose: 10 ml Documented by: Sodium Chloride (Sodium Chloride Flush 0.9% 10 Ml Syringe) 10 ml IVP PRN PRN PRN Reason: NEEDED PER PROVIDER ORDERS Last Admin: 04/25/20 06:56 Dose: 80 ml Documented by: Sodium Chloride (Sodium Chloride Flush 0.9% 10 Ml Syringe) 20 ml IVP PRN PRN PRN Reason: After Blood Draw Last Admin: 04/26/20 09:13 Dose: 20 ml Documented by: Tamsulosin HCl (Tamsulosin 0.4 Mg Capsule) 0.4 mg PO DAILY [facility] Last Admin: 04/26/20 09:08 Dose: 0.4 mg Documented by: Aspirin 81 mg PO DAILY 01/26/17 Atorvastatin [Lipitor] 80 mg PO DAILY 01/26/17 Metoprolol Tartrate 25 mg PO DAILY 01/26/17 Sertraline [Zoloft] 100 mg PO DAILY 10/22/17 Albuterol Sulfate [Proair Hfa Inhaler] 90 mcg INH PRN PRN 04/15/20 Alpha Lipoic Acid 600 mg PO DAILY 04/15/20 Clobetasol 0.05% Oint [Temovate 0.05% Oint] 10 mg TOP DAILY 04/15/20 Gabapentin [Neurontin] 300 mg PO BID 04/15/20 Hydrocortisone/Pramoxine [Hydrocort-Pramoxine 2.5-1% Crm] 10 mg TOP DAILY 04/15/20 Ipratropium [Atrovent] 42 mcg INH HS 04/15/20 LORazepam [Ativan] 0.5 mg PO PRN PRN 04/15/20 Mupirocin Calcium [Mupirocin] 15 mg TOP DAILY 04/15/20 Nitroglycerin [Nitrostat] 1 tab SL DAILY 04/15/20 Oxybutynin [Ditropan] 10 mg PO DAILY 04/15/20 Tamsulosin [Flomax] 0.4 mg PO DAILY 04/15/20 Triamcinolone 0.1% Oint [Kenalog 0.1% Oint] 1 mg TOP DAILY 04/15/20 metroNIDAZOLE 0.75% GEL 2 gm TOP DAILY 04/15/20 Objective - Vital Signs/Intake & Output Reviewed Vital Signs: Yes Vital Signs: Vital Signs x48h Temp Pulse Resp BP BP Pulse Ox 04/26/20 05:18 36.7 C 70 18 141/67 H 100 04/26/20 02:09 36.4 C L 88 16 143/69 H 99 Intake & Output: Intake & Output 04/23/20 04/24/20 04/25/20 04/26/20 23:59 23:59 23:59 23:59 Intake Total 2698.310 5496.000 1370 2230 Output Total 4544 2040 3325 780 Balance -8945.646 3375.000 -1955 1450 - Objective General Appearance: positive: No acute distress, Alert Eyes Bilateral: positive: Normal inspection, Conjunctivae nml ENT: positive: ENT inspection nml, Other (Dobhoff in place.) Neck: positive: Nml inspection Respiratory: positive: No respiratory distress, Other (Diminished in bases.). negative: Wheezes, Rales Cardiovascular: positive: Regular rate & rhythm, No murmur. negative: Tachycardia Abdomen: positive: Non-tender, Nml bowel sounds, No distention, Other (Two LYNDA drains in place. Dressing is intact.). negative: Tenderness - Lab Results Fish Bones: 04/26/20 04:43 04/26/20 04:43 Other Labs: Lab Results x24hrs 04/26/20 04/26/20 04/25/20 Range/Units 04:43 04:43 16:45 WBC 10.1 (4.8-10.8) x10^3/uL RBC 3.25 L (4.70-6.10) 10^6/uL Hgb 10.6 L (14.0-18.0) g/dL Hct 31.6 L (42.0-52.0) % MCV 97.2 H (80.0-94.0) fL MCH 32.6 H (27.0-31.0) pg MCHC 33.5 (32.0-36.0) g/dL RDW 12.4 (12.0-15.0) % Plt Count 184 (130-450) 10^3/uL MPV 10.6 (7.4-11.4) fL Neut # (Auto) 8.1 H (1.5-6.6) 10^3/uL Lymph # (Auto) 1.0 L (1.5-3.5) 10^3/uL [place] # (Auto) 0.6 (0.0-1.0) 10^3/uL Eos # (Auto) 0.3 (0.0-0.7) 10^3/uL Baso # (Auto) 0.0 (0.0-0.1) 10^3/uL Absolute Nucleated RBC 0.00 x10^3/uL Nucleated RBC % 0.0 /100WBC Sodium 133 L (135-145) mmol/L Potassium 3.8 (3.5-5.0) mmol/L Chloride 99 L (101-111) mmol/L Carbon Dioxide 26 (21-32) mmol/L Anion Gap 8.0 (6-13) BUN 24 H (6-20) mg/dL Creatinine 0.7 (0.6-1.2) mg/dL Estimated GFR (MDRD) 108 (>89) Glucose 176 H (70-100) mg/dL POC Whole Bld Glucose 156 H (70 - 100) mg/dL Calcium 8.6 (8.5-10.3) mg/dL Phosphorus 2.7 (2.5-4.6) mg/dL Magnesium 1.9 (1.7-2.8) mg/dL Total Bilirubin 1.1 H (0.2-1.0) mg/dL AST 29 (10-42) IU/L ALT 30 (10-60) IU/L Alkaline Phosphatase 101 (42-121) IU/L Troponin I High Sens (2.3-19.7) ng/L Total Protein 6.0 L (6.7-8.2) g/dL Albumin 3.0 L (3.2-5.5) g/dL Globulin 3.0 (2.1-4.2) g/dL Albumin/Globulin Ratio 1.0 (1.0-2.2) 04/25/20 04/25/20 04/25/20 Range/Units 10:59 06:51 06:51 WBC (4.8-10.8) x10^3/uL RBC (4.70-6.10) 10^6/uL Hgb (14.0-18.0) g/dL Hct (42.0-52.0) % MCV (80.0-94.0) fL MCH (27.0-31.0) pg MCHC (32.0-36.0) g/dL RDW (12.0-15.0) % Plt Count (130-450) 10^3/uL MPV (7.4-11.4) fL Neut # (Auto) (1.5-6.6) 10^3/uL Lymph # (Auto) (1.5-3.5) 10^3/uL [place] # (Auto) (0.0-1.0) 10^3/uL Eos # (Auto) (0.0-0.7) 10^3/uL Baso # (Auto) (0.0-0.1) 10^3/uL Absolute Nucleated RBC x10^3/uL Nucleated RBC % /100WBC Sodium 131 L (135-145) mmol/L Potassium 3.8 (3.5-5.0) mmol/L Chloride 96 L (101-111) mmol/L Carbon Dioxide 27 (21-32) mmol/L Anion Gap 8.0 (6-13) BUN 29 H (6-20) mg/dL Creatinine 0.7 (0.6-1.2) mg/dL Estimated GFR (MDRD) 108 (>89) Glucose 178 H (70-100) mg/dL POC Whole Bld Glucose 214 H (70 - 100) mg/dL Calcium 8.6 (8.5-10.3) mg/dL Phosphorus 3.6 (2.5-4.6) mg/dL Magnesium 1.6 L (1.7-2.8) mg/dL Total Bilirubin 0.9 (0.2-1.0) mg/dL AST 32 (10-42) IU/L ALT 33 (10-60) IU/L Alkaline Phosphatase 91 (42-121) IU/L Troponin I High Sens 14.1 (2.3-19.7) ng/L Total Protein 6.0 L (6.7-8.2) g/dL Albumin 2.8 L (3.2-5.5) g/dL Globulin 3.2 (2.1-4.2) g/dL Albumin/Globulin Ratio 0.9 L (1.0-2.2) Sepsis Event Note (H) - Evaluation Current Stage of Sepsis: Sepsis Possible source of Sepsis: positive: GI tract/intra-abdominal - Sepsis Criteria Sepsis Criteria: WBC count greater than 12,000 or less than 4000, Metabolic: lactate > 2 mmol/L Assessment/Plan - Problem List (1) Obstruction concurrent with and due to internal hernia of abdomen Impression: Continues to improve. He is tolerating a diet and tube feeds. We are hopeful to discontinue his tube feeds and just continue on a diet as tolerated. His pain is controlled to continue current pain regiment. Management as per general surgery. (2) History of COPD Impression: Stable and not in exacerbation. Continue albuterol as needed. (3) History of coronary artery disease Impression: Stable. We have continued his home medications including aspirin, beta-raymundo, statin. (4) Hypertension Impression: His blood pressure is improved today. We will continue metoprolol for the time being. (5) Pneumonia Impression: This has resolved. He saturating well on room air.
[2020-04-26] MEDS: HEPARIN 5,000 UNIT/ML VIAL SUBQ SCH ×2 (09:05→21:33)
[2020-04-26] MEDS: INSULIN ASPART 300 UNIT/3 ML PEN SUBQ SCH ×4 (09:06→21:25)
[2020-04-26] MEDS: GABAPENTIN 300 MG CAPSULE PO SCH ×2 (09:08→21:29)
[2020-04-26] MEDS: ASPIRIN CHEW 81 MG TABLET PO SCH (09:08)
[2020-04-26] MEDS: TAMSULOSIN 0.4 MG CAPSULE PO SCH (09:08)
[2020-04-26] MEDS: SERTRALINE 25 MG TABLET PO SCH (09:08)
[2020-04-26] MEDS: METOPROLOL TARTRATE 25 MG TABLET PO SCH ×2 (09:08→21:25)
[2020-04-26] MEDS: ATORVASTATIN 10 MG TABLET PO SCH (09:13)
[2020-04-26] MEDS: SODIUM CHLORIDE FLUSH 0.9% 10 ML SYRINGE IVP PRN (09:13)
[2020-04-26] MEDS: ACETAMINOPHEN 325 MG TABLET PO PRN (11:47)
[2020-04-26] MEDS ORDERED: INSULIN ASPART 300 UNIT/3 ML PEN SUBQ SCH (12:00)
--- NOTE | 2020-04-26 16:03 | PROVIDER PROGRESS NOTE ---
Progress Note Subjective 80-year-old male who presents with multiple comorbid states including CAD, HI, status post multiple cardiac stents, morbid obesity who was evaluated in the emergency room for nearly 12 hours of abdominal pain and CT findings notable for internal herniation; patient taken emergently for below listed procedure and noted for 54 inches of necrotic ileum for which damage control laparotomy was undertaken with resection, discontinuity, and open abdominal dressing. INDEX Procedure Performed: 1. Exploratory laparotomy 2. Lysis of adhesions 3. Partial omentectomy 4. Small bowel resection with discontinuity 5. Abdominal washout 6. Wide drainage 7. Open abdomen 8. Right internal jugular triple-lumen catheter 9. Right femoral arterial line 10. Open appendectomy In the interim patient has been weaned significantly off Daniel-Synephrine. Vasopressin weaned. Patient has normalized for heart rate. Normalized lactic acidosis. Yesterday, status post: Procedure Performed: 1. Second look laparotomy/re-exploration 2. Small bowel resection 3. Small bowel anastomosis 4. Abdominal washout 5. Wide local drainage 6. Closure of mesenteric defect 7. Possible ventral hernia repair INTERIM: A. Patient had ultimately been weaned off of pressors; initially required phenylephrine which was augmented with vasopressin; ultimately these were both weaned without any complication. Next B. Patient was ultimately transitioned from propofol to Precedex in anticipation of ventilatory weaning and planned extubation. Patient was maintained on fentanyl for analgesia. C. Patient was maintained for endotracheal tube was successfully extubated POD#2 following the patient's second operative/reoperative intervention. D. Transferred out of the ICU. TPN and started on trickle tube feeds per NGT (w eighted). Positive bowel function today. DIET ADVANCED TO FULL LIQUIDS. E. Out of bed. Overall feels much better. Eager for discharge. F. Family has been made aware of the patient's progress in recovery. Objective Afebrile hemodynamically acceptable Patient sedated but arousable and following basic commands No acute distress resting comfortably in bed; intubated and sedated Lungs clear to auscultation bilaterally no wheezes rales or rhonchi Radial pulses palpable bilaterally with good capillary refill Abdomen soft nontender nondistended no rebound no guarding Midline wound dressed. Dressing clean dry and intact. Martin drains serosanguineous. Moving all extremities with no sensorimotor deficits Cranial nerves II through XII grossly intact Assessment and plan: 80-year-old male postoperative day #9 status post second look laparotomy/damage control surgery with zoroastrian of bowel continuity and abdominal closure of f ascial defect. Presented with ischemic bowel/necrotic ileum from internal herniation. Multiple comorbid states. Septic shock now resolved. Extubated with no complications as it relates to Hx of COPD. Transferred out of the ICU. Positive resumption of bowel function. Plan going forward is as follows: (1) GI - Wean tube feeds to off, advance diet from full liquids to soft diet as tolerated. Continue bowel regimen with Colace and MiraLAX. Significant improvement from a gastrointestinal standpoint. Continue GI prophylaxis. (2) SURGERY - We will plan delayed primary closure. Will discontinue one of the 2 drains tomorrow and likely second just prior to discharge. (3) Renal/Lytes - Renal indices within normal limits. Trial of void/DC Gupta catheter this evening. (4) Respiratory - CPAP as necessary. Repeat chest x-ray to assess for residual infiltrates. (5) Heme - Will continue with chemical DVT ppx. H/H stable. (6) Cardiovascular - HD acceptable. Will need to remove TLC once peripheral IV established. (7) Neuro - prn narcotics and continue neuropathic pain regimen. (8) Continue to greatly appreciate the hospitalist input with regard to this complex patient. (9) ENDOCRINOLOGY - continue insulin sliding scale. (10) Infectious Disease - discontinue Zosyn for broad coverage. Patient afebrile, no leukocytosis. (11) Continue Physical Therapy and Occupational Therapy. (12) DISCHARGE PLANNING: Likely discharge to rehab for physical therapy.
--- NOTE | 2020-04-26 16:48 | XRAY Report ---
PROCEDURE: Chest 1 View X-Ray INDICATIONS: F/U ASPIRATION/INFILTRATES TECHNIQUE: One view of the chest was acquired. COMPARISON: Chest x-ray 04/22/2020 FINDINGS: Surgical changes and devices: None. Lungs and pleura: Chronic interstitial changes are persistent blunting of the right costophrenic angl e.Linear opacity is present in the left base likely atelectasis. There is mild residual coarsening wi thin the right base. Mediastinum: Mediastinal contours appear normal. Heart size is normal. Bones and chest wall: No suspicious bony lesions. Overlying soft tissues appear unremarkable. IMPRESSION: Right-sided central venous catheter is unchanged. Persistent right costophrenic angle blunting sugges tive of scarring with coarsening, which could represent atelectasis versus minimal residual airspace disease related to pneumonia/aspiration. Reviewed by: Audra Beal MD on 04/26/2020 4:47 PM PST Approved by: Audra Beal MD on 04/26/2020 4:47 PM PST Station ID: [id number]
[2020-04-26] MEDS: DOCUSATE SODIUM 100 MG CAPSULE PO SCH (21:25)
[2020-04-26] MEDS: polyethylene glycoL 3350 17 GM PACKET PO SCH (21:31)
[2020-04-27] MEDS: SODIUM CHLORIDE FLUSH 0.9% 10 ML SYRINGE IVP SCH ×3 (01:26→20:39)
[2020-04-27] MEDS: SODIUM CHLORIDE FLUSH 0.9% 10 ML SYRINGE IVP PRN (01:26)
[2020-04-27 05:39] LABS: BASOPHILS % (AUTO) 0.3 %; EOSINOPHILS # (AUTO) 0.2 10^3/uL (0.0-0.7); EOSINOPHILS % (AUTO) 2.5 %; HGB - HEMOGLOBIN 9.8 g/dL (14.0-18.0); LYMPHOCYTES # (AUTO) 1.1 10^3/uL (1.5-3.5); LYMPHOCYTES % (AUTO) 11.2 %; MEAN CORPUSCULAR HEMOGLOBIN 31.7 pg (27.0-31.0); MEAN CORPUSCULAR HGB CONC 33.2 g/dL (32.0-36.0); MEAN CORPUSCULAR VOLUME 95.5 fL (80.0-94.0); MEAN PLATELET VOLUME 10.5 fL (7.4-11.4); MONOCYTES # (AUTO) 0.6 10^3/uL (0.0-1.0); MONOCYTES % (AUTO) 5.9 %; NEUTROPHILS # (AUTO) 7.7 10^3/uL (1.5-6.6); PLT - PLATELET COUNT 161 10^3/uL (130-450); RED BLOOD COUNT 3.09 10^6/uL (4.70-6.10); RED CELL DISTRIBUTION WIDTH 12.3 % (12.0-15.0); WHITE BLOOD COUNT 9.7 x10^3/uL (4.8-10.8)
[2020-04-27 05:54] LABS: BILIRUBIN,TOTAL 1.4 mg/dL (0.2-1.0); CALCIUM 8.5 mg/dL (8.5-10.3); CREATININE 0.6 mg/dL (0.6-1.2); MAGNESIUM 1.8 mg/dL (1.7-2.8); PHOSPHORUS 2.8 mg/dL (2.5-4.6); TOTAL PROTEIN 5.9 g/dL (6.7-8.2)
[2020-04-27] MEDS: PANTOPRAZOLE 40 MG VIAL IVP SCH (06:20)
[2020-04-27] MEDS ORDERED: BUFFERED LIDOCAINE 10 ML SYRINGE SUBQ STA (08:18)
--- NOTE | 2020-04-27 08:19 | PROVIDER PROGRESS NOTE ---
Progress Note Subjective 80-year-old male who presents with multiple comorbid states including CAD, [place], status post multiple cardiac stents, morbid obesity who was evaluated in the emergency room for nearly 12 hours of abdominal pain and CT findings notable for internal herniation; patient taken emergently for below listed procedure and noted for 54 inches of necrotic ileum for which damage control laparotomy was undertaken with resection, discontinuity, and open abdominal dressing. INDEX Procedure Performed: 1. Exploratory laparotomy 2. Lysis of adhesions 3. Partial omentectomy 4. Small bowel resection with discontinuity 5. Abdominal washout 6. Wide drainage 7. Open abdomen 8. Right internal jugular triple-lumen catheter 9. Right femoral arterial line 10. Open appendectomy In the interim patient has been weaned significantly off Daniel-Synephrine. Vasopressin weaned. Patient has normalized for heart rate. Normalized lactic acidosis. Yesterday, status post: Procedure Performed: 1. Second look laparotomy/re-exploration 2. Small bowel resection 3. Small bowel anastomosis 4. Abdominal washout 5. Wide local drainage 6. Closure of mesenteric defect 7. Possible ventral hernia repair INTERIM: A. Patient had ultimately been weaned off of pressors; initially required phenylephrine which was augmented with vasopressin; ultimately these were both weaned without any complication. Next B. Patient was ultimately transitioned from propofol to Precedex in anticipation of ventilatory weaning and planned extubation. Patient was maintained on fentanyl for analgesia. C. Patient was maintained for endotracheal tube was successfully extubated POD#2 following the patient's second operative/reoperative intervention. D. Transferred out of the ICU. TPN and started on trickle tube feeds per NGT (w eighted). Positive bowel function today. DIET ADVANCED TO FULL LIQUIDS. E. Out of bed. Overall feels much better. Eager for discharge. SUCCESSFUL TRIAL OF VOID. POSITIVE, CONTINUED BOWEL FUNCTION. OOB WITH PT/OT. F. Family has been made aware of the patient's progress in recovery. Objective Afebrile hemodynamically acceptable Patient sedated but arousable and following basic commands No acute distress resting comfortably in bed; intubated and sedated Lungs clear to auscultation bilaterally no wheezes rales or rhonchi Radial pulses palpable bilaterally with good capillary refill Abdomen soft nontender nondistended no rebound no guarding Midline wound dressed. SEE SEPARATE COVER FOR DELAYED PRIMARY CLOSURE. Dressing clean dry and intact. MARTIN DRAINS REMOVED. Moving all extremities with no sensorimotor deficits Cranial nerves II through XII grossly intact Assessment and plan: 80-year-old male hospital day #12/postoperative day #10 status post second look laparotomy/damage control surgery with lutheran of bowel continuity and abdominal closure of fascial defect. Presented with ischemic bowel/necrotic ileum from internal herniation. Multiple comorbid states. Septic shock now resolved. Extubated with no complications as it relates to Hx of COPD. Transferred out of the ICU. Positive resumption of bowel function. STABLE FOR A SURGICAL STANDPOINT FOR DISCHARGE. Plan going forward is as follows: (1) GI - Continue bowel regimen with Colace and MiraLAX. Significant improvement from a gastrointestinal standpoint. Continue GI prophylaxis. (2) SURGERY - S/P delayed primary closure (SEE SEPARATE PROCEDURE REPORT). Discontinued both Martin drains. (3) Renal/Lytes - Renal indices within normal limits. Voiding successfully. (4) Respiratory - CPAP as necessary. Repeat chest x-ray with no infiltrates; Hx of Right pulmonary lobectomy/wedge resection. (5) Heme - Will continue with chemical DVT ppx. H/H stable. (6) Cardiovascular - HD acceptable. Will need to remove TLC once peripheral IV established. (7) Neuro - prn narcotics and continue neuropathic pain regimen. (8) Continue to greatly appreciate the hospitalist input with regard to this complex patient. (9) ENDOCRINOLOGY - continue insulin sliding scale. (10) Infectious Disease - Pt is off abx. Patient afebrile, no leukocytosis. (11) Continue Physical Therapy and Occupational Therapy. (12) DISCHARGE PLANNING: Likely discharge to [facility] for physical therapy. STABLE FOR A SURGICAL STANDPOINT FOR DISCHARGE.
[2020-04-27] MEDS: DOCUSATE SODIUM 100 MG CAPSULE PO SCH ×2 (09:41→21:37)
[2020-04-27] MEDS: polyethylene glycoL 3350 17 GM PACKET PO SCH ×2 (09:41→21:37)
[2020-04-27] MEDS: ATORVASTATIN 10 MG TABLET PO SCH (09:41)
[2020-04-27] MEDS: SERTRALINE 25 MG TABLET PO SCH (09:41)
[2020-04-27] MEDS: METOPROLOL TARTRATE 25 MG TABLET PO SCH ×2 (09:41→21:36)
[2020-04-27] MEDS: ASPIRIN CHEW 81 MG TABLET PO SCH (09:41)
[2020-04-27] MEDS: GABAPENTIN 300 MG CAPSULE PO SCH ×2 (09:44→21:37)
[2020-04-27] MEDS: TAMSULOSIN 0.4 MG CAPSULE PO SCH (09:44)
[2020-04-27] MEDS: INSULIN ASPART 300 UNIT/3 ML PEN SUBQ SCH ×4 (09:59→21:36)
[2020-04-27] MEDS: HEPARIN 5,000 UNIT/ML VIAL SUBQ SCH ×2 (10:37→21:34)
[2020-04-27] MEDS: ACETAMINOPHEN 325 MG TABLET PO PRN ×2 (11:44→21:45)
[2020-04-28] MEDS: SODIUM CHLORIDE FLUSH 0.9% 10 ML SYRINGE IVP SCH ×2 (00:38→10:49)
[2020-04-28] MEDS: PANTOPRAZOLE 40 MG VIAL IVP SCH (06:54)
--- NOTE | 2020-04-28 07:45 | Discharge Plan ---
"Discharge Plan for SNF / [facility] - Discharge Plan And Transition Orders Problem Reviewed?: Yes Disposition: 03 SNF DC/Xfer Condition: Stable Allergies and Adverse Reactions: Allergies Allergy/AdvReac Type Severity Reaction Status Date / Time No Known Drug Allergies Allergy Verified 04/15/20 18:22 Health Concerns: This is a 80-year-old male who presented to our emergency department with abdominal pain and CT of the abdomen pelvis revealed internal herniation. He was taken to the OR immediately by general surgery and underwent a low expiratory laparotomy with a small bowel resection. He was found to have 54 inches of necrotic ileum. He later went a second look laparotomy with further small bowel resection and small bowel anastomosis. To the intensive care unit as he required vasopressors initially. He was treated for aspiration pneumonia during his hospitalization with IV Zosyn. Nutrition was initially maintained via TPN and was later transitioned to tube feeds. He has since had return of bowel function and his diet has been advanced to a clear liquid diet and now he is tolerating a soft diet. Evaluated by physical therapy and Occupational Therapy who recommended half-way facility. He is now discharged in stable condition to continue his recovery at [facility] nursing [facility]. Plan of Treatment: His pain has been controlled without any opiates and so we have not prescribed any narcotics on discharge. He will need outpatient follow-up with general surgery in two weeks. General surgery has recommended a soft diet until he is seen in clinic. Assessment: The patient expressed understanding of the treatment plan. - SNF / ASSISTED Transition Orders Admit to (Facility): [facility] Discharge Diagnosis: Small bowel obstruction due to internal hernia of abdomen - resolved. History of COPD - stable. History of coronary artery disease - stable. Hypertension - stable. Septic shock - resolved. Aspiration pneumonia - resolved. Medicare Certification Statement: I certify that [facility] Hospital half-way care is medically necessary on a continuing basis for any of the conditions for which she/he is receiving care during hospitalization. Notify PCP of admission and forward orders to primary provider for signature. Other Notification Orders: Call PCP immediately if patient develops dyspnea, chest pain/tightness or edema. Additional Bowel Program Orders: If no BM after 2 days, nurse may give M.O.M. 30ml PO PRN and/or ducolax Supp 1 NE and/or EFREM 250mg P.O., and/or senna 1-2 tabs PO. On day 3 nurse may give repeat above order until residents constipation is resolved. Medication Orders: PLEASE REFER TO THE DISCHARGE MEDICATION LIST. - Medications New Prescriptions: Docusate Sodium 100Mg Capsule [Colace 100Mg Capsule] 100 mg PO BID #60 capsule polyethylene glycoL 3350 [Miralax] 17 gm PO DAILY #14 packet Pantoprazole [Protonix] 40 mg PO DAILY #30 tablet - Diet Texture: Mech soft Liquids: Thin - Therapies | Activity Therapy: Evaluation | Treat if indicated: PT, OT Rehabilitation Potential: Return to independent living Activity: Activity as Tolerated"
--- NOTE | 2020-04-28 08:05 | OPERATIVE REPORT ---
Operative Report - General Admit Date: 04/16/20 Procedure Date: 04/27/20 Planned Procedure: 1. Abdominal wound washout 2. Delayed primary closure 3. Local analgesia with injectable anesthetic Pre-Op Diagnosis: Bowel ischemia; Hx Damage Control Lap; Open Abd Wound Procedure Performed: 1. Abdominal wound washout 2. Delayed primary closure 3. Local analgesia with injectable anesthetic Post Op Diagnosis: Same; Viable Wound; Closed without complication - Procedure Note Primary Surgeon: Teri Secondary Surgeon: Lucy Anesthesia Provider: Lucy Anesthesia Technique: Local Pathology: None Indications: Indications: 1. Open abdomen status post damage control laparotomy with bowel resection in discontinuity for 54" ischemic ileum secondary to internal herniation 2. Hemodynamic shock/septic shock necessitating pressors and fluid resuscitation 3. Need for second look/reexploration to assess for any progression of the patient's bowel necrosis/ischemia 4. Improvement of hemodynamic parameters and inflammatory markers suggesting possible indication for closure and scientology of continuity 5. Status post the below listed procedures (after initial exploration for ischemic bowel): Procedure Performed: a. Second look laparotomy/re-exploration b. Small bowel resection c. Small bowel anastomosis d. Abdominal washout e. Wide local drainage f. Closure of mesenteric defect g. Ventral hernia repair 6. Open abdominal wound packed daily in need of delayed primary closure. Findings: 1. Granulating wound without any evidence of erythema or induration. 2. Approximated easily with deep dermal stitches intact and in place; wound was explored extensively to assure there was no remnant plain packing strip as multiple individual pieces were placed during last dressing change against recommendation. 3. Stapled without any complication after localized with lidocaine. Complications: NONE - Other Other Information/Narrative: Patient was obtained for informed consent with risks and benefits discussed questions answered. Timeout was called and agreed to by all the room. Patient was prepped and draped in the usual sterile fashion. Patient was localized with lidocaine without any complication. The wound was aggressively irrigated with sterile saline and suctioned dry. There was no evidence of any infectious stigmata; no erythema, induration, purulence, or warmth. We proceeded to sterilely reapproximate the wound leaving the deep dermal sutures intact that were placed intraoperatively at the second damage control laparotomy. We used skin winsome. These were placed at appropriate distance. There was no tension on the wound patient tolerated well. The wound was dressed with dry sterile gauze. I was present for the entirety of this intervention. Please note that voice recognition software was used to transcribe this note and inadvertent errors might persist in spite of review and editing. I am obliged to you for your attention. I am thankful to you for allowing me to participate with you in this care of this patient.
--- NOTE | 2020-04-28 09:02 | DISCHARGE SUMMARY ---
"Discharge Summary Admit Date: 04/15/20 Discharge Date: 04/28/20 Discharging Provider: Davis Cho Primary Care Provider: Roland Land Code Status: Attempt Resuscitation Condition at Discharge: Stable Discharge Disposition: SNF DC/Xfer Discharge Facility Name: [facility] - DIAGNOSES Admission Diagnoses: Small bowel obstruction Incarcerated/internal hernia Discharge Diagnoses with Status of Each Condition: Small bowel obstruction due to internal hernia of abdomen - resolved. History of COPD - stable. History of coronary artery disease - stable. Hypertension - stable. Septic shock - resolved. Aspiration pneumonia - resolved. - HPI History of Present Illness: H&P per Dr. Williamson: 80-year-old male with past medical history significant for DE status post multi ple stents on baby aspirin who is notable past surgical history of umbilical hernia repair who presents with a 1 day history of abdominal pain. He reports having last eaten a banana for breakfast and thereafter suffering worsening abdominal pain, he developed nausea and vomiting. He proceeded to the emergency room and ultimately underwent CT scan which revealed internal herniation. The ER called approximately 2030 to discuss the patient. I proceeded to come in urgently for consultation. Patient denies bloody bowel movement. He denies hematemesis. He takes no systemic anticoagulation. He has had no similar episodes in the past. - CONSULTS | PROCEDURES Consultations: Medicine, PT, OT Procedures: He underwent expiratory laparotomy on April 16 with partial omentectomy, small bowel resection with discontinuity, lysis of adhesions, open appendectomy. He had a 54 inches of small bowel necrosis. He underwent a second look phlebotomy on April 17 where he had further small bowel resection and small bowel anastomosis. - HOSPITAL COURSE Hospital Course: This is a 80-year-old male who presented to our emergency department with abdominal pain and CT of the abdomen pelvis revealed internal herniation. He was taken to the OR immediately by general surgery and underwent a low expiratory laparotomy with a small bowel resection. He was found to have 54 inches of necrotic ileum. He later went a second look laparotomy with further small bowel resection and small bowel anastomosis. He was admitted to theintensive care unit as he required vasopressors initially. He was treated for aspiration pneumonia during his hospitalization with IV Zosyn. Nutrition was initially maintained via TPN and was later transitioned to tube feeds. He has since had return of bowel function and his diet has been advanced to a clear liquid diet and now he is tolerating a soft diet. Evaluated by physical therapy and Occupational Therapy who recommended nursing home facility. He is now discharged in stable condition to continue his recovery at [facility]. - ALLERGIES Allergies/Adverse Reactions: Allergies Allergy/AdvReac Type Severity Reaction Status Date / Time No Known Drug Allergies Allergy Verified 04/15/20 18:22 - MEDICATIONS Home Medications: Ambulatory Orders Medication Instructions Recorded Confirmed RX: Aspirin 81 mg PO DAILY 01/26/17 04/15/20 RX: Atorvastatin [Lipitor] 80 mg PO DAILY 01/26/17 04/15/20 RX: Metoprolol Tartrate 25 mg PO DAILY 01/26/17 04/15/20 RX: Sertraline [Zoloft] 100 mg PO DAILY 01/26/17 04/15/20 RX: Albuterol Sulfate [Proair Hfa 90 mcg INH PRN PRN 04/15/20 04/15/20 Inhaler] RX: Alpha Lipoic Acid 600 mg PO DAILY 04/15/20 04/15/20 RX: Clobetasol 0.05% Oint 10 mg TOP DAILY 04/15/20 04/15/20 [Temovate 0.05% Oint] RX: Gabapentin [Neurontin] 300 mg PO BID 04/15/20 04/15/20 RX: Hydrocortisone/Pramoxine 10 mg TOP DAILY 04/15/20 04/15/20 [Hydrocort-Pramoxine 2.5-1% Crm] RX: Ipratropium [Atrovent] 42 mcg INH HS 04/15/20 04/15/20 RX: Mupirocin Calcium [Mupirocin] 15 mg TOP DAILY 04/15/20 04/15/20 RX: Nitroglycerin [Nitrostat] 1 tab SL DAILY 04/15/20 04/15/20 RX: Oxybutynin [Ditropan] 10 mg PO DAILY 04/15/20 04/15/20 RX: Tamsulosin [Flomax] 0.4 mg PO DAILY 04/15/20 04/15/20 RX: Triamcinolone 0.1% Oint 1 mg TOP DAILY 04/15/20 04/15/20 [Kenalog 0.1% Oint] RX: metroNIDAZOLE 0.75% GEL 2 gm TOP DAILY 04/15/20 04/15/20 Pantoprazole [Protonix] 40 mg PO DAILY #30 tablet 04/28/20 RX: Docusate Sodium 100Mg Capsule 100 mg PO BID #60 capsule 04/28/20 [Colace 100Mg Capsule] RX: polyethylene glycoL 3350 17 gm PO DAILY #14 packet 04/28/20 [Miralax] - PHYSICAL EXAM AT DISCHARGE General Appearance: positive: No acute distress, Alert Eyes Bilateral: positive: Normal inspection, Conjunctivae nml ENT: positive: ENT inspection nml Neck: positive: Nml inspection Respiratory: positive: No respiratory distress. negative: Wheezes, Rales Cardiovascular: positive: Regular rate & rhythm, No murmur. negative: Extrasystoles Abdomen: positive: Non-tender, No distention, Other (Dressing in place.). negative: Tenderness, Rebound Skin: positive: Warm, Dry Extremities: positive: No pedal edema Neurologic/Psychiatric: negative: Disoriented to person, Disoriented to place Physical Exam Other/Comments: Vital Signs - 24 hr 04/27/20 04/27/20 04/27/20 15:49 19:30 21:36 Temperature 36.2 C L Heart Rate 68 Heart Rate [ 68 Monitoring electrodes] Respiratory 18 18 Rate Blood Pressure 148/73 H Blood Pressure [Left Brachial artery] Blood Pressure 123/58 L [Right Brachial artery] O2 Saturation 99 04/27/20 04/28/20 04/28/20 23:49 08:09 09:00 Temperature 37.0 C 36.5 C Heart Rate 62 Heart Rate [ 70 68 Monitoring electrodes] Respiratory 20 18 14 Rate Blood Pressure Blood Pressure 154/74 H [Left Brachial artery] Blood Pressure 134/71 H [Right Brachial artery] O2 Saturation 95 97 04/28/20 04/28/20 09:23 11:27 Temperature 36.3 C L Heart Rate Heart Rate [ 74 Monitoring electrodes] Respiratory 16 Rate Blood Pressure 125/73 Blood Pressure [Left Brachial artery] Blood Pressure 150/65 H [Right Brachial artery] O2 Saturation 100 Oxygen O2 Source Room air - LABS Result Diagrams: 04/27/20 05:15 04/27/20 05:15 - DIAGNOSTIC IMAGING Diagnostic Imaging Results: Final report reviewed - SEPSIS Current Stage of Sepsis: Resolved Possible source of Sepsis: GI tract/intra-abdominal Sepsis Criteria: WBC count greater than 12,000 or less than 4000, Metabolic: lactate > 2 mmol/L - FOLLOW UP Follow Up: He will need to follow-up with general surgery in 2 weeks. - TIME SPENT Time Spent in Discharge (Minutes): 33"
[2020-04-28] MEDS: HEPARIN 5,000 UNIT/ML VIAL SUBQ SCH (09:19)
[2020-04-28] MEDS: ASPIRIN CHEW 81 MG TABLET PO SCH (09:22)
[2020-04-28] MEDS: METOPROLOL TARTRATE 25 MG TABLET PO SCH (09:23)
[2020-04-28] MEDS: DOCUSATE SODIUM 100 MG CAPSULE PO SCH (09:23)
[2020-04-28] MEDS: TAMSULOSIN 0.4 MG CAPSULE PO SCH (09:25)
[2020-04-28] MEDS: SERTRALINE 25 MG TABLET PO SCH (09:25)
[2020-04-28] MEDS: polyethylene glycoL 3350 17 GM PACKET PO SCH (09:26)
[2020-04-28] MEDS: INSULIN ASPART 300 UNIT/3 ML PEN SUBQ SCH (09:29)
[2020-04-28] MEDS: GABAPENTIN 300 MG CAPSULE PO SCH (09:33)
[2020-04-28 10:17] LABS: C. PNEUMONIAE- RESP PCR PANEL NOT DETECTED
[2020-04-28] MEDS: ATORVASTATIN 10 MG TABLET PO SCH (10:41)
[2020-04-28 11:30] VITALS: BP 150/65
== END 2020-04-28 11:40 | DRG 329 ==
LOC: EDUNIT# → ED 18:10 → SDS 22:00 → ICU 04-16 01:56 → MS3 04-23 18:16
PROVIDERS: ADMIT Surgery; ATTEND Internal Medicine
PROC: 0DBB0ZZ Excision of Ileum, Open Approach (ICD-10-PCS; principal; 2020-04-16)
PROC: 0DTJ0ZZ Resection of Appendix, Open Approach (ICD-10-PCS; 2020-04-16)
PROC: 0DBU0ZZ Excision of Omentum, Open Approach (ICD-10-PCS; 2020-04-16)
PROC: 0DN80ZZ Release Small Intestine, Open Approach (ICD-10-PCS; 2020-04-16)
PROC: 0W9G0ZZ Drainage of Peritoneal Cavity, Open Approach (ICD-10-PCS; 2020-04-16)
PROC: 3E1M38Z Irrigation of Peritoneal Cavity using Irrigating Substance, Percutaneous Approach (ICD-10-PCS; 2020-04-16)
PROC: 04HY32Z Insertion of Monitoring Device into Lower Artery, Percutaneous Approach (ICD-10-PCS; 2020-04-16)
PROC: 02HV33Z Insertion of Infusion Device into Superior Vena Cava, Percutaneous Approach (ICD-10-PCS; 2020-04-16)
PROC: 0D180Z8 Bypass Small Intestine to Small Intestine, Open Approach (ICD-10-PCS; 2020-04-17)
PROC: 0DQV0ZZ Repair Mesentery, Open Approach (ICD-10-PCS; 2020-04-17)
PROC: 0DBB0ZZ Excision of Ileum, Open Approach (ICD-10-PCS; 2020-04-17)
PROC: 0W9G0ZZ Drainage of Peritoneal Cavity, Open Approach (ICD-10-PCS; 2020-04-17)
PROC: 0WQF0ZZ Repair Abdominal Wall, Open Approach (ICD-10-PCS; 2020-04-17)
PROC: 5A1945Z Respiratory Ventilation, 24-96 Consecutive Hours (ICD-10-PCS; 2020-04-17)
PROC: 3E1M38Z Irrigation of Peritoneal Cavity using Irrigating Substance, Percutaneous Approach (ICD-10-PCS; 2020-04-17)
PROC: 0WQFXZZ Repair Abdominal Wall, External Approach (ICD-10-PCS; 2020-04-27)
PROC: 3E1M38Z Irrigation of Peritoneal Cavity using Irrigating Substance, Percutaneous Approach (ICD-10-PCS; 2020-04-27)
DX: K46.0 Unspecified abdominal hernia with obstruction, without gangrene (principal); A41.9 Sepsis, unspecified organism; R65.21 Severe sepsis with septic shock; J96.01 Acute respiratory failure with hypoxia; J69.0 Pneumonitis due to inhalation of food and vomit; R57.1 Hypovolemic shock; K65.8 Other peritonitis; K55.029 Acute infarction of small intestine, extent unspecified; K55.8 Other vascular disorders of intestine; E87.2 Acidosis; E87.1 Hypo-osmolality and hyponatremia; R18.8 Other ascites; J44.9 Chronic obstructive pulmonary disease, unspecified; E87.5 Hyperkalemia; R73.9 Hyperglycemia, unspecified; I25.10 Atherosclerotic heart disease of native coronary artery without angina pectoris; Z95.5 Presence of coronary angioplasty implant and graft; I25.2 Old myocardial infarction; Z85.118 Personal history of other malignant neoplasm of bronchus and lung; Z90.2 Acquired absence of lung [part of]; E66.01 Morbid (severe) obesity due to excess calories; Z68.38 Body mass index [BMI] 38.0-38.9, adult; Z78.1 Physical restraint status; I10 Essential (primary) hypertension; R45.1 Restlessness and agitation; I95.9 Hypotension, unspecified; Z79.82 Long term (current) use of aspirin; K43.9 Ventral hernia without obstruction or gangrene; N40.0 Benign prostatic hyperplasia without lower urinary tract symptoms; E78.5 Hyperlipidemia, unspecified; F41.9 Anxiety disorder, unspecified; F32.9 Major depressive disorder, single episode, unspecified; G47.33 Obstructive sleep apnea (adult) (pediatric); G62.9 Polyneuropathy, unspecified
CPT/HCPCS: 36415; 71045; 74018; 74177; 80053; 82330; 82607; 82803; 83605; 83690; 83735; 84100; 84132; 84134; 84478; 84484; 85025; 87150; 87631; 92526; 92610; 93005; 93306; 94002; 94003; 94640; 94660; 96374; 96375; 96376; 97110; 97116; 97162; 97167; 97530; 99284; 99285; A9270; J0131; J1170; J1815; J2060; J3010; J3490; J7040; J7120; P9047; Q9967; U0004; 0202U; 94770

== ENCOUNTER 2020-05-08 14:20 | Outpatient (CLI) | payer MEDICARE, OTHER | END 2020-05-08 14:21 | disposition critical access hospital (66) | LOC: EMS 14:20 | PROVIDERS: ATTEND Surgery | DX: R55 Syncope and collapse (principal); R42 Dizziness and giddiness | CPT/HCPCS: A0425; A0427 ==

== ENCOUNTER 2020-05-08 14:27 | Inpatient (IN) | payer MEDICARE, OTHER ==
[2020-05-08] MEDS ORDERED: SODIUM CHLORIDE 0.9% 1,000 ML IV STA (14:37)
--- NOTE | 2020-05-08 14:39 | ED Physician Documentation ---
History of Present Illness - Stated complaint Stated Complaint: SYNCOPE - History obtained from History obtained from: Patient - Additonal information Additional information: This is an 80-year-old gentleman with history of coronary artery disease, COPD, hypertension who presented on April 15 of this month with small bowel obstruction due to an incarcerated internal hernia. He had an exploratory laparotomy on April 16 with partial lobectomy, small bowel resection, lysis of adhesions, open appendectomy. A total of 54 inches of small bowel were necrotic and removed. He was released to a nursing facility on April 28. While there he says he had some episodes of diarrhea which resolved when he stopped using a stool softener. Since then he says he is actually somewhat constipated now. While in the rehab facility he had some dizzy episodes. These dizzy episodes returned today. He was at the surgeon's office for routine postop check and had some near syncopal episodes. He was orthostatic, blood pressure went down to 77/40 going upright and his heart rate went from 60-100 or so. He says he feels fine when he is laying in bed. He does have a sore on his left buttock. No fevers. No abdominal pain. Review of Systems Ten Systems: 10 systems reviewed and negative Constitutional: denies: Fever, Chills, Myalgias Cardiac: denies: Chest pain / pressure Respiratory: denies: Dyspnea, Cough PD PAST MEDICAL HISTORY - Past Medical History Cardiovascular: High cholesterol, [place] Respiratory: Sleep apnea, CPAP use, Other (Intubated) Neuro: None, Other Endocrine/Autoimmune: None GI: None : None HEENT: Chronic hearing loss Psych: Anxiety Musculoskeletal: Osteoarthritis Derm: Psoriasis - Past Surgical History Past Surgical History: Yes General: Colonoscopy Ortho: Knee replacement Cardiovascular: Coronary stent, Lobectomy - Present Medications Home Medications: Ambulatory Orders Medication Instructions Recorded Confirmed Aspirin 81 mg PO DAILY 01/26/17 05/08/20 Atorvastatin [Lipitor] 80 mg PO DAILY 01/26/17 05/08/20 Metoprolol Tartrate 25 mg PO DAILY 01/26/17 05/08/20 Sertraline [Zoloft] 100 mg PO DAILY 01/26/17 05/08/20 Albuterol Sulfate [Proair Hfa 90 mcg INH PRN PRN 04/15/20 05/08/20 Inhaler] Alpha Lipoic Acid 600 mg PO DAILY 04/15/20 05/08/20 Clobetasol 0.05% Oint [Temovate 10 mg TOP DAILY 04/15/20 05/08/20 0.05% Oint] Gabapentin [Neurontin] 300 mg PO BID 04/15/20 05/08/20 Hydrocortisone/Pramoxine 10 mg TOP DAILY 04/15/20 05/08/20 [Hydrocort-Pramoxine 2.5-1% Crm] Ipratropium [Atrovent] 42 mcg INH HS 04/15/20 05/08/20 Mupirocin Calcium [Mupirocin] 15 mg TOP DAILY 04/15/20 05/08/20 Nitroglycerin [Nitrostat] 1 tab SL DAILY 04/15/20 05/08/20 Oxybutynin [Ditropan] 10 mg PO DAILY 04/15/20 05/08/20 Tamsulosin [Flomax] 0.4 mg PO DAILY 04/15/20 05/08/20 Triamcinolone 0.1% Oint [Kenalog 1 mg TOP DAILY 04/15/20 05/08/20 0.1% Oint] metroNIDAZOLE 0.75% GEL 2 gm TOP DAILY 04/15/20 05/08/20 polyethylene glycoL 3350 [Miralax] 17 gm PO DAILY #14 packet 04/28/20 05/08/20 LORazepam [Ativan] 0.5 mg PO PRN PRN 05/08/20 05/08/20 - Allergies Allergies/Adverse Reactions: Allergies Allergy/AdvReac Type Severity Reaction Status Date / Time No Known Drug Allergies Allergy Verified 05/08/20 14:52 - Social History Does the pt smoke?: No Smoking Status: Former smoker Does the pt drink ETOH?: Yes Does the pt have substance abuse?: No - Immunizations Immunizations are current?: No - POLST Patient has POLST: No PD ED PE NORMAL - Vitals Vital signs reviewed: Yes - General General: Alert and oriented X 3, No acute distress - HEENT HEENT: PERRL, EOMI - Neck Neck: Supple, no meningeal sign, No bony TTP - Cardiac Cardiac: RRR, No murmur - Respiratory Respiratory: No respiratory distress, Clear bilaterally - Abdomen Abdomen: Other (Midline laparotomy scar with winsome still in place, no dehiscence or signs of infection. There is granulation tissue in the right lower quadrant site that looks like probably the site of a LYNDA drain.) - Rectal Rectal: Other (Stage 2-3 sacral pressure ulcer) - Back Back: No CVA TTP, No spinal TTP - Derm Derm: Normal color, Warm and dry - Neuro Neuro: Alert and oriented X 3, No motor deficit, No sensory deficit, Normal speech Results - Vitals Vitals: Vital Signs - 24 hr 05/08/20 05/08/20 05/08/20 14:28 16:23 17:08 Temperature 36.6 C Heart Rate 67 78 81 Respiratory 19 16 20 Rate Blood Pressure 150/93 H 150/73 H 135/79 H O2 Saturation 97 100 100 05/08/20 17:13 Temperature 99.3 C H Heart Rate 82 Respiratory Rate Blood Pressure O2 Saturation Oxygen O2 Source Room air - EKG (time done) 1435 Rate: Rate (enter#) (65) Rhythm: NSR, LAE [place]: LAD Intervals: Normal NE QRS: Normal Ischemia: Non specific changes Computer interpretation: Agree with computer - Labs Labs: Laboratory Tests 05/08/20 05/08/20 05/08/20 14:54 14:54 15:45 WBC 14.8 H RBC 3.79 L Hgb 11.7 L Hct 35.4 L MCV 93.4 MCH 30.9 MCHC 33.1 RDW 12.5 Plt Count 266 MPV 9.4 Neut # (Auto) 12.8 H Lymph # (Auto) 0.8 L [place] # (Auto) 1.0 Eos # (Auto) 0.0 Baso # (Auto) 0.0 Absolute Nucleated RBC 0.00 Nucleated RBC % 0.0 Sodium 130 L Potassium 4.4 Chloride 94 L Carbon Dioxide 25 Anion Gap 11.0 BUN 12 Creatinine 0.8 Estimated GFR (MDRD) 93 Glucose 173 H Lactic Acid 1.5 Calcium 8.8 Magnesium 1.5 L Total Bilirubin 1.4 H AST 18 ALT 23 Alkaline Phosphatase 122 H Total Protein 7.1 Albumin 3.2 Globulin 3.9 Albumin/Globulin Ratio 0.8 L Lipase 27 Nasal Adenovirus (PCR) Nasal B. parapertussis DNA (PCR) Nasal Coronavir 229E PCR Nasal Coronavir HKU1 PCR Nasal Coronavir NL63 PCR Nasal Coronavir OC43 PCR Nasal Enterovir/Rhinovir PCR Nasal Influenza B PCR Nasal Influenza A PCR Nasal Parainfluen 1 PCR Nasal Parainfluen 2 PCR Nasal Parainfluen 3 PCR Nasal Parainfluen 4 PCR Nasal RSV (PCR) Nasal B.pertussis DNA PCR Nasal C.pneumoniae (PCR) Rashaad Human Metapneumo PCR Nasal M.pneumoniae (PCR) Nasal SARS-CoV-2 (PCR) 05/08/20 17:10 WBC RBC Hgb Hct MCV MCH MCHC RDW Plt Count MPV Neut # (Auto) Lymph # (Auto) [place] # (Auto) Eos # (Auto) Baso # (Auto) Absolute Nucleated RBC Nucleated RBC % Sodium Potassium Chloride Carbon Dioxide Anion Gap BUN Creatinine Estimated GFR (MDRD) Glucose Lactic Acid Calcium Magnesium Total Bilirubin AST ALT Alkaline Phosphatase Total Protein Albumin Globulin Albumin/Globulin Ratio Lipase Nasal Adenovirus (PCR) NOT DETECTED Nasal B. parapertussis DNA (PCR) NOT DETECTED Nasal Coronavir 229E PCR NOT DETECTED Nasal Coronavir HKU1 PCR NOT DETECTED Nasal Coronavir NL63 PCR NOT DETECTED Nasal Coronavir OC43 PCR NOT DETECTED Nasal Enterovir/Rhinovir PCR NOT DETECTED Nasal Influenza B PCR NOT DETECTED Nasal Influenza A PCR NOT DETECTED Nasal Parainfluen 1 PCR NOT DETECTED Nasal Parainfluen 2 PCR NOT DETECTED Nasal Parainfluen 3 PCR NOT DETECTED Nasal Parainfluen 4 PCR NOT DETECTED Nasal RSV (PCR) NOT DETECTED Nasal B.pertussis DNA PCR NOT DETECTED Nasal C.pneumoniae (PCR) NOT DETECTED Rashaad Human Metapneumo PCR NOT DETECTED Nasal M.pneumoniae (PCR) NOT DETECTED Nasal SARS-CoV-2 (PCR) NOT DETECTED PD MEDICAL DECISION MAKING - ED course ED course: 80-year-old gentleman with recent bowel resection presents from clinic with presyncope and hypotension. He is very orthostatic here. Initial concern would have been for dumping syndrome since he had a significant bowel resection last month, but he really is not having diarrhea at this point. His white count was elevated and he does have an extensive sacral pressure ulcer. A CT was done, with IV contrast, it shows: 1 left deep decubitus ulcer with cellulitis and subcutaneous emphysema 2. Suggestion of myositis involving the medial portion of the left gluteus grace with intramuscular air pockets concerning for developing necrotizing fasciitis without drainable fluid collection 3. Postsurgical changes but no acute intra-abdominal disease 4. Splenomegaly 5. Coronary and abdominal atherosclerosis 6. Bibasilar scheduling scattered scarring and atelectasis with extensive calcified pleural plaques 6 suggestive of prior as best doses. Decreased right lung volume with mediastinal shift to the right. Spoke with Dr. Williamson his surgeon who felt that he was best served by going to a larger center for this now complicated problem. He was given Zosyn, clindamycin, vancomycin, and greater than 30 mils per kilogram of fluids noting that he does fit the criteria for septic shock given his blood pressure. Spoke with Vance Simmons ([facility] [place] surgery 1720) who did not feel the patient had necrotizing fasciitis. The I spoke with . Spoke with Dr. Williamson again. He did not feel comfortable keeping the patient here and he will personally call the surgeon at [facility] to discuss. Dr. Williamson discussed the case with the the surgeon at [facility] who continued to decline the case I am told and Dr. Williamson will take him to the OR here. - Critical Care Time(min): 45 Time Includes: Direct patient care, Review records, Reassess patient, Document care, Coordinate care, Medical consult Data interpretation: Labs, Pulse ox Procedures included in critical care time: Peripheral IV Procedures excluded from critical care time: EKG - Sepsis Event Current Stage of Sepsis: Septic shock Initial Hypotension: SBP drop more than 40 mmHg from baseline, MAP less than 65 mmHg Possible source of Sepsis: Skin/soft tissue Mental/Cognitive Status: Alert/Oriented X3, Normal for patient Capillary refill: Less than 2 seconds Peripheral Pulse Strength: 2+ Slightly Diminished Peripheral Pulse Location: Radial Departure - Departure Disposition: 66 [facility] DC/Xfer Clinical Impression: Necrotizing fasciitis, Septic shock Condition: Critical
[2020-05-08] MEDS ORDERED: COD LIVER OIL/ZINC OXIDE 113 GM TUBE TOP STA (14:46)
[2020-05-08 14:59] LABS: BASOPHILS % (AUTO) 0.1 %; EOSINOPHILS % (AUTO) 0.1 %; HGB - HEMOGLOBIN 11.7 g/dL (14.0-18.0); LYMPHOCYTES # (AUTO) 0.8 10^3/uL (1.5-3.5); LYMPHOCYTES % (AUTO) 5.6 %; MEAN CORPUSCULAR HEMOGLOBIN 30.9 pg (27.0-31.0); MEAN CORPUSCULAR HGB CONC 33.1 g/dL (32.0-36.0); MEAN CORPUSCULAR VOLUME 93.4 fL (80.0-94.0); MEAN PLATELET VOLUME 9.4 fL (7.4-11.4); NEUTROPHILS # (AUTO) 12.8 10^3/uL (1.5-6.6); NEUTROPHILS % (AUTO) 86.4 %; PLT - PLATELET COUNT 266 10^3/uL (130-450); RED BLOOD COUNT 3.79 10^6/uL (4.70-6.10); RED CELL DISTRIBUTION WIDTH 12.5 % (12.0-15.0); WHITE BLOOD COUNT 14.8 x10^3/uL (4.8-10.8)
[2020-05-08 15:15] LABS: ALBUMIN 3.2 g/dL (3.2-5.5); ALBUMIN/GLOBULIN RATIO 0.8 (1.0-2.2); BILIRUBIN,TOTAL 1.4 mg/dL (0.2-1.0); CALCIUM 8.8 mg/dL (8.5-10.3); CREATININE 0.8 mg/dL (0.6-1.2); MAGNESIUM 1.5 mg/dL (1.7-2.8); TOTAL PROTEIN 7.1 g/dL (6.7-8.2)
[2020-05-08] MEDS ORDERED: LACTATED RINGERS 1,000 ML IV STA (15:38)
[2020-05-08] MEDS ORDERED: IOVERSOL 320 100 ML VIAL IVP ONE ×2 (15:50→16:10)
[2020-05-08] MEDS ORDERED: PIPERACILLIN/TAZOBACTAM 4.5 GM in SODIUM CHLORIDE 0.9% MINIBAG 100 ML IV STA (16:17)
[2020-05-08] MEDS ORDERED: CLINDAMYCIN 900 MG/50 ML 50 ML IV ONE (16:17)
[2020-05-08] MEDS ORDERED: VANCOMYCIN INJ 2 GM in SODIUM CHLORIDE 0.9% 500 ML IV STA (16:17)
--- NOTE | 2020-05-08 16:23 | CT Report ---
PROCEDURE: Abdomen/Pelvis W INDICATIONS: IV only, leukocytosis, constipation, sacral ulcer CONTRAST: IV CONTRAST: Optiray 320 ml: 100 PO CONTRAST: *NO PO CONTRAST TECHNIQUE: After the administration of IV contrast, 5 mm thick sections acquired from the diaphragms to the symp hysis. 5 mm thick coronal and sagittal reformats were acquired. For radiation dose reduction, the f ollowing was used: automated exposure control, adjustment of mA and/or kV according to patient size. COMPARISON: None. FINDINGS: Image quality: Excellent. ABDOMEN: Lung bases: Bibasilar scattered scarring/atelectasis is seen. Calcified pleural plaques at visualized right lung base is noted suggestive of prior asbestos exposure. Decreased right lung volume with med iastinal shift to the right is seen. Heart size is enlarged, no pericardial effusion. Moderate amount of atherosclerotic disease is seen.. Solid organs: Liver is normal in size and shows normal enhancement. Spleen is enlarged. No discrete splenic lesion. Gallbladder is within normal limits. Biliary system is non dilated. Pancreas enhan geoff normally. No adrenal nodules. Kidneys demonstrate normal size and enhancement, without hydronep hrosis. Peritoneum and bowel: There is no bowel obstruction. Small hiatal hernia is seen. No abnormal bowel w all thickening or mesenteric fat stranding. No free fluid of free air. There is no abscess collection . Post surgical changes are noted involving bowel loops in lower abdomen from prior bowel resection w ith grossly intact surgical anastomosis. Nodes and vessels: No retroperitoneal or mesenteric adenopathy by size criteria. Aorta and inferior vena cava are normal in size. Moderate amount of atherosclerotic disease throughout the abdominal a lakeisha is seen. Miscellaneous: No ventral hernias. Midline incisional wound with surgical winsome are seen. PELVIS: Genitourinary: Bladder wall thickness is normal. Miscellaneous: No inguinal hernias or adenopathy. Decubitus ulcer over lower sacrum/coccygeal level just to the left of midline with underlying subcutaneous emphysema is seen. There is also asymmetric ally enlarged left medial gluteus grace muscle with intramuscular air suggestive of myositis. No di screte drainable abscess collection is seen. Necrotizing fasciitis and gluteal region cannot be exclu ded. Bones: No suspicious bony lesions. No vertebral body compression fractures. No bony erosive change s are noted in lower sacrum and coccyx to suggest osteomyelitis. Degenerative disc disease throughout lower thoracic and lumbar spine is seen. IMPRESSION: 1. Left deep decubitus ulcer in the lower sacral/coccygeal region just to the left of midline with ce llulitis and underlying subcutaneous emphysema. No evidence of osteomyelitis in the adjacent sacrum a nd coccyx. 2. Suggestion of myositis involving medial portion of left gluteus grace muscle with intramuscular air pockets concerning for developing necrotizing fasciitis. No discrete drainable abscess collection is seen. 3. No peritoneal free fluid of free air. No peritoneal abscess collection. No abnormal bowel wall thi ckening. Postsurgical changes seen in lower abdomen from partial bowel resection with intact surgical anastomosis. No evidence of bowel obstruction. 4. Splenomegaly, no discrete splenic lesion. 5. Moderate amount of atherosclerotic disease throughout the coronary vessels and abdominal aorta. 6. Bibasilar scattered scarring/atelectasis. Extensive calcified pleural plaques at the right lung ba se suggestive of prior asbestos exposure. Decreased right lung volume with mediastinal shift to the r ight. Reviewed by: Sunil Bran MD on 05/08/2020 3:22 PM AKST Approved by: Sunil Bran MD on 05/08/2020 3:22 PM AKST Station ID: [id number]
[2020-05-08] MEDS ORDERED: LACTATED RINGERS 2,000 ML IV STA (16:32)
[2020-05-08 18:12] LABS: C. PNEUMONIAE- RESP PCR PANEL NOT DETECTED
--- NOTE | 2020-05-08 19:28 | ANESTHESIA ---
Pre-Anesthesia VS, & Labs - Diagnosis decubitus ulcer, necrotizing soft tissue - Procedure debridement wide local excision sacral wound Vital Signs: Temp Pulse Resp BP Pulse Ox 37.4 C 72 16 123/68 99 05/08/20 17:13 05/08/20 18:30 05/08/20 18:30 05/08/20 18:30 05/08/20 18:30 Height: 6 ft Weight (kg): 117.934 kg Body Mass Index: 35.2 BMI Classification: Obese - NPO >8 hours - Lab Results Current Lab Results: Laboratory Tests 05/08/20 15:45: Lactic Acid 1.5 05/08/20 14:54: Sodium 130 L, Potassium 4.4, Chloride 94 L, Carbon Dioxide 25, Anion Gap 11.0, BUN 12, Creatinine 0.8, Estimated GFR (MDRD) 93, Glucose 173 H, Calcium 8.8, Magnesium 1.5 L, Total Bilirubin 1.4 H, AST 18, ALT 23, Alkaline Phosphatase 122 H, Total Protein 7.1, Albumin 3.2, Globulin 3.9, Albumin/G lobulin Ratio 0.8 L, Lipase 27 05/08/20 14:54: WBC 14.8 H, RBC 3.79 L, Hgb 11.7 L, Hct 35.4 L, MCV 93.4, MCH 30.9, MCHC 33.1, RDW 12.5, Plt Count 266, MPV 9.4, Neut # (Auto) 12.8 H, Lymph # (Auto) 0.8 L, [place] # (Auto) 1.0, Eos # (Auto) 0.0, Baso # (Auto) 0.0, Absolute Nucleated RBC 0.00, Nucleated RBC % 0.0 Fish Bones: 05/08/20 14:54 05/08/20 14:54 Home Medications and Allergies Home Medications: Ambulatory Orders LORazepam [Ativan] 0.5 mg PO PRN PRN 05/08/20 Aspirin 81 mg PO DAILY 01/26/17 Atorvastatin [Lipitor] 80 mg PO DAILY 01/26/17 Metoprolol Tartrate 25 mg PO DAILY 01/26/17 Sertraline [Zoloft] 100 mg PO DAILY 01/26/17 Albuterol Sulfate [Proair Hfa Inhaler] 90 mcg INH PRN PRN 04/15/20 Alpha Lipoic Acid 600 mg PO DAILY 04/15/20 Clobetasol 0.05% Oint [Temovate 0.05% Oint] 10 mg TOP DAILY 04/15/20 Gabapentin [Neurontin] 300 mg PO BID 04/15/20 Hydrocortisone/Pramoxine [Hydrocort-Pramoxine 2.5-1% Crm] 10 mg TOP DAILY 04/15/20 Ipratropium [Atrovent] 42 mcg INH HS 04/15/20 Mupirocin Calcium [Mupirocin] 15 mg TOP DAILY 04/15/20 Nitroglycerin [Nitrostat] 1 tab SL DAILY 04/15/20 Oxybutynin [Ditropan] 10 mg PO DAILY 04/15/20 Tamsulosin [Flomax] 0.4 mg PO DAILY 04/15/20 Triamcinolone 0.1% Oint [Kenalog 0.1% Oint] 1 mg TOP DAILY 04/15/20 metroNIDAZOLE 0.75% GEL 2 gm TOP DAILY 04/15/20 LORazepam [Ativan] 0.5 mg PO PRN PRN 05/08/20 Allergies/Adverse Reactions: Allergies Allergy/AdvReac Type Severity Reaction Status Date / Time No Known Drug Allergies Allergy Verified 05/08/20 14:52 Anes History & Medical History - Anesthetic History Anesthesia Complications: reports: No previous complications - Medical History Cardiovascular: reports: High cholesterol, [place] Pulmonary: reports: Sleep apnea, CPAP use, Other (Intubated) Gastrointestinal: reports: None Urinary: reports: None Neuro: reports: None, Other Musculoskeletal: reports: Osteoarthritis Endocrine/Autoimmune: reports: None Blood Disorders: reports: None Skin: reports: Psoriasis Smoking Status: Former smoker - Surgical History General: Colonoscopy Cardiothoracic: Coronary stent, Lobectomy Orthopedic: Knee replacement Exam General: Alert Dental: WNL Mouth Opening: Greater than 4 Fingerbreadths Neck Mobility: Normal Mallampati classification: II Respiratory: Lungs clear Cardiovascular: Regular rate Mental/Cognitive Status: Alert/Oriented X3 Plan Anesthesia Type: General, MAC Consent for Procedure(s) Verified and Reviewed: Yes Code Status: Attempt Resuscitation ASA classification: 3-Severe systemic disease Is this case an emergency?: Yes
--- NOTE | 2020-05-08 19:47 | SURGERY HX AND PHYSICAL(T) ---
Surgical History & Physical - Chief Complaint/HPI Chief Complaint: Suspected necrotizing fasciitis of the sacrum History of Present Illness: 80-year-old male seen in clinic today for follow-up. Please see [facility] clinic notes signed and documented in this encounter visit. Secondary to orthostasis, near syncope, amongst others, the patient was sent to the emergency room for work-up. At that time he was noted for leukocytosis, hypotension, and was fluid resuscitated. He underwent CT scan that revealed concerns for necrotizing fasciitis. Multiple conversations were had with [facility] notably with Dr. Simmons. Initially Dr. Raines spoke to Dr. Simmons who initially refused the patient. After discussing with my partners and knowing this patient intimately fromhis recent hospitalization, I opted to call Dr. Simmons myself. The conversation was not productive and ultimately he refused the patient after I had suggested another provider potentially become involved. Given the delay in this patient's diagnosis likely during his convalescence and rehab, the significant concern of his CAT scan, and his potential further delay as it relates to transfer and timing of his operative intervention, I opted to call and the surgical team myself for operative intervention. I discussed with [facility] the possibility of transfer after initial debridement going forward. CT abdomen pelvis impression: 1. There was an asymmetrically enlarged left medial gluteal grace muscle with intramuscular air suggestive of myositis. No discrete drainable abscess collection is seen. Necrotizing fasciitis and gluteal region cannot be excluded. 2. Left deep decubitus ulcer in the lower sacrococcygeal region just left of the midline with cellulitis and underlying subcutaneous emphysema. No evidence of osteomyelitis in the adjacent sacrum and coccyx. 2. Suggestion of myositis involving the medial portion of the left gluteus grace muscle with intermuscular air pockets concerning for developing necrotizing fasciitis. No discrete drainable abscess collection is seen. 3. No peritoneal free fluid or free air no peritoneal abscess collection. No abnormal bowel wall thickening. Postsurgical changes seen in lower abdomen from partial small bowel resection with intact surgical anastomosis. No evidence of bowel obstruction. 4. Splenomegaly, no discrete splenic lesion. 5. Moderate amount of atherosclerotic disease throughout the coronary vessels and abdominal aorta. 6. Bibasilar scattered scarring atelectasis. Extensive calcified pleural plaques at the right lung base suggestive of prior asbestos exposure. Decreased right lung volume with mediastinal shift to the right. - PMH/PSH/Social Hx Does the pt have a hx of MRSA?: No Neurological History: None, Other Eyes, Ears, Nose, Throat: Chronic hearing loss Cardiovascular: High cholesterol, [place] Respiratory: Sleep apnea, CPAP use, Other (Intubated) Skin: Psoriasis Endocrine/Autoimmune: None Gastrointestinal: None Urinary: None Musculoskeletal: Osteoarthritis Blood Disorders: None Psychiatric: Anxiety General: Colonoscopy Orthopedic: Knee replacement Cardiothoracic: Coronary stent, Lobectomy Smoking Status: Former smoker Does the pt drink ETOH?: Yes Frequency: Daily Does the pt have substance abuse?: No - Home Meds and Allergies Home Medications: Aspirin 81 mg PO DAILY 01/26/17 Atorvastatin [Lipitor] 80 mg PO DAILY 01/26/17 Metoprolol Tartrate 25 mg PO DAILY 01/26/17 Sertraline [Zoloft] 100 mg PO DAILY 01/26/17 Albuterol Sulfate [Proair Hfa Inhaler] 90 mcg INH PRN PRN 04/15/20 Alpha Lipoic Acid 600 mg PO DAILY 04/15/20 Clobetasol 0.05% Oint [Temovate 0.05% Oint] 10 mg TOP DAILY 04/15/20 Gabapentin [Neurontin] 300 mg PO BID 04/15/20 Hydrocortisone/Pramoxine [Hydrocort-Pramoxine 2.5-1% Crm] 10 mg TOP DAILY 04/15/20 Ipratropium [Atrovent] 42 mcg INH HS 04/15/20 Mupirocin Calcium [Mupirocin] 15 mg TOP DAILY 04/15/20 Nitroglycerin [Nitrostat] 1 tab SL DAILY 04/15/20 Oxybutynin [Ditropan] 10 mg PO DAILY 04/15/20 Tamsulosin [Flomax] 0.4 mg PO DAILY 04/15/20 Triamcinolone 0.1% Oint [Kenalog 0.1% Oint] 1 mg TOP DAILY 04/15/20 metroNIDAZOLE 0.75% GEL 2 gm TOP DAILY 04/15/20 LORazepam [Ativan] 0.5 mg PO PRN PRN 05/08/20 Allergies/Adverse Reactions: Allergies Allergy/AdvReac Type Severity Reaction Status Date / Time No Known Drug Allergies Allergy Verified 05/08/20 14:52 - Review of Systems Constitutional: Fatigue, Fever, Chills, Malaise HEENT: Visual changes Cardiac: CAD Respiratory: Shortness of breath Gastrointestinal: Constipation Neurological: Dizziness, Syncope, Tingling, Weakness Musculoskeletal: Muscle pain - Vital Signs Heart Rate: 72 Blood Pressure: 123/68 Temperature: 37.4 C Respiratory Rate: 16 O2 Saturation: 99 Weight (kg): 117.934 kg Height: 1.83 m - Physical Exam General Appearance: positive: Moderate distress Eyes Bilatera: positive: Normal inspection, PERRL, EOMI ENT: positive: ENT inspection nml Neck: positive: Nml inspection Respiratory: positive: Chest non-tender, No respiratory distress, Breath sounds nml. negative: Wheezes, Rales, Rhonchi Cardiovascular: positive: Regular rate & rhythm Abdomen: positive: Non-tender, Other (Well-healed surgical incision with winsome intact) Rectal: positive: Other (Large sacral wound with surrounding induration and erythema) Neurologic/Psychiatric: positive: Oriented x3, CN's nml (2-12), Motor nml, Sensation nml, Mood/affect nml - Patient Review Patient Review: Problems were reviewed with the patient during this visit. Medications were reviewed with the patient during this visit. Allergies were reviewed this patient during this visit. Pertinent Tests Reviewed: All pertitent test for this patient were reviewed. - Assessment & Plan Assessment and Plan: 80-year-old male complex recent surgical history multiple comorbid states to include COPD, CAD, diabetes, peripheral neuropathy, amongst others, who presents with concerns over early necrotizing infection of the skin and soft tissue of the sacrum. Discussed possible transfer however secondary to delay in miscommunication and ultimate refusal of patient by [facility], we opted for surgery emergently for wide local debridement washout IV antibiotics towards temporizing the patient for possible transfer. Risk and benefits discussed consent obtained. Operative staff in house. We will attempt to perform this under monitored anesthesia care with local given the patient's COPD and multiple comorbid states.
[2020-05-08] MEDS ORDERED: KETAMINE 500 MG/10 ML VIAL ONE (19:55)
[2020-05-08] MEDS ORDERED: MIDAZOLAM 2 MG/2 ML VIAL ONE ×2 (19:55→20:24)
[2020-05-08] MEDS ORDERED: PROPOFOL 200 MG/20 ML VIAL IVP ONE (19:55)
[2020-05-08] MEDS ORDERED: LIDOCAINE 1% 50 ML MDV ONE (20:13)
[2020-05-08] MEDS ORDERED: BUPIVACAINE 0.5% PF 30 ML VIAL ONE (20:13)
[2020-05-08] MEDS ORDERED: LIDOCAINE 2%-EPI 1:100000 20 ML MDV ONE (20:13)
[2020-05-08] MEDS ORDERED: LIDOCAINE 1%-EPI 1:100000 30 ML MDV SUBQ ONE (20:21)
[2020-05-08] MEDS ORDERED: BUPIVACAINE 0.5% PF 30 ML VIAL INFIL ONE (20:22)
[2020-05-08] MEDS ORDERED: HYDROmorphone 1 MG/ML CARPUJECT ONE (20:39)
[2020-05-08] MEDS ORDERED: ONDANSETRON 4 MG/2 ML VIAL IVP PRN (20:56)
[2020-05-08] MEDS ORDERED: ALBUTEROL NEB 2.5 MG/3 ML INH PRN (20:56)
[2020-05-08] MEDS ORDERED: IPRATROPIUM 0.2 MG/ML NEB INH PRN (20:56)
[2020-05-08] MEDS ORDERED: HYDROmorphone PCA 20MG/100ML IV PRN (21:06)
--- NOTE | 2020-05-08 21:17 | ANESTHESIA POST OP EVALUATION ---
Anesthesia Post Eval - Post Anesthesia Eval Vitals: Last Vital Signs Temp 36.4 C L 05/08/20 21:12 Pulse 75 05/08/20 21:12 Resp 16 05/08/20 21:12 BP 103/57 L 05/08/20 21:12 Pulse Ox 96 05/08/20 21:12 CV Function Including HR & BP: positive: Stable Pain Control: positive: Satisfactory Nausea & Vomiting: positive: Negative Mental Status: positive: Patient Participates Respiratory Status: Airway Patent Hydration Status: Satisfactory
--- NOTE | 2020-05-08 21:29 | OPERATIVE REPORT ---
Operative Report - General Admit Date: 05/08/20 Procedure Date: 05/08/20 Planned Procedure: 1. Exam under anesthesia 2. Wide local excision sacral and buttock/gluteal wound 3. Incision and drainage sacral and buttock/gluteal wound Pre-Op Diagnosis: Shock; Subcu Gas; Nec Fasciitis; Mult Comorbid; Recent lap; Sacral Wound Procedure Performed: 1. Examination under anesthesia 2. Incision and drainage of necrotizing wound 3. Wide local excision of necrotizing skin and soft tissue infection 4. Washout of infected wound 5. Hemostasis by cautery and suture ligature 6. Packing of open widely excised necrotizing infectious wound Post Op Diagnosis: Necrotic fat, muscle, skin, with tracking along fascial plane - Procedure Note Primary Surgeon: Teri Secondary Surgeon: Lucy Anesthesia Provider: Felicia Anesthesia Technique: Local, MAC Pathology: 1. Skin, subcutaneous fat, soft tissue, muscle from necrotizing infection for pathology 2. Swab x2 cultures from sacral wound 3. Swab x1 from left gluteal pocket 4. Multiple tissue specimens (x2) for culture Estimated Blood Loss (mL): 50 Drain/Tube Type: Other (Wound packed with Betadine soaked Kerlix) Indications: Please see EMR. Suspected necrotizing fasciitis with subcutaneous air. In brief 80-year-old male status post recent laparotomy for necrotic small bowel prolonged hospitalization. Ultimately after prolonged ICU stay and intubation, transition to floor following damage control laparotomy and gnosticism of bowel continuity during second look. Transition to rehab and during postop visit today was noted for presyncope/near syncope and orthostasis. ER work-up concerning for necrotizing fasciitis. Discussed possible transfer to [facility] with ER physician. Initially on-call surgeon refused Dr. Bonilla request. I thereafter called myself, however unable to productively facilitate transfer. I ultimately spoke to the providers chief/chair, and after discussing the logistics especially the concern that the patient would not go to the operating room till early a.m. with already concerns over delayed diagnosis, I opted to take the patient emergently to the operating room. Findings: 1. "Dishwater" appearing fluid from the sacrum 2. Necrotic skin, subcutaneous fat, muscle, and associated fascia 3. Large defect involving the sacrum and left buttock 4. Hemostatic and packed at the conclusion of this case Complications: None - Other Other Information/Narrative: Pending final report
[2020-05-08] MEDS: D5NS W/20 MEQ KCL 1,000 ML IV SCH (21:33)
[2020-05-08] MEDS: HEPARIN 5,000 UNIT/ML VIAL SUBQ SCH (21:35)
--- NOTE | 2020-05-08 21:39 | CONSULTATION NOTE ---
Referring Provider Name of Referring Provider:: Dr. Pranav Williamson Consult Date: 05/08/20 Chief Complaint - Chief Complaint Chief Complaint: Lightheadedness History of Present Illness - Admitted From Admitted From:: [facility] - History Obtained From Records Reviewed: Yes History obtained from: Patient, General Surgeon, EMR - History of Present Illness HPI Comment/Other: This is a 80-year-old male with a past medical history significant for coronary artery disease, CPAP, LONNIE on CPAP who was recently discharged from our facility after being admitted for small bowel ischemia secondary to an internal hernia and underwent small bowel resection. He was seen today in follow-up by general surgery where he was noted to be orthostatic. The patient states that he has been doing well at rehab although he has not felt lightheaded and dizzy recently. He cannot tell me how long this has been going on for. He does not feel symptomatic at rest. Denies any syncope. He states he was having diarrhea at [facility] but this was resolved after he stopped taking the stool softeners which were previously prescribed for him. He reports no chest pain or dyspnea. Denies any abdominal pain. He reports no pain in his buttocks up until now since he has had debridement. He denies being sedentary at rehab. He reports no focal deficits and denies any numbness or tingling in his lower extremities. He reports no fevers or chills. In the emergency department, he was found to be afebrile with a normal heart rate and normotensive. Orthostatics were checked and had a systolic blood pressure drop greater than 40 mmHg. Labs revealed white count of 14,000 with a normal lactic acid. He was found to have a sacral wound and imaging with a CT was obtained which was concerning for a left deep decubitus ulcer in the lower sacral/coccygeal region and myositis of the left gluteus grace with concern for possible necrotizing fasciitis. He was given vancomycin, Zosyn, clindamycin in the emergency department. Given these findings, transfer to higher level of care was discussed but the surgeon at [facility] felt that transfer was not warranted and so he went to the OR immediately with general surgery. I did discuss goals of care with the patient and he states that he is a DNR. History - Past Medical History Cardiovascular: reports: High cholesterol, CT Respiratory: reports: COPD, Sleep apnea, CPAP use Neuro: reports: None, Other Endocrine/Autoimmune: reports: None GI: reports: None : reports: None HEENT: reports: Chronic hearing loss Psych: reports: Anxiety Musculoskeletal: reports: Osteoarthritis Derm: reports: Psoriasis MRSA Hx?: No - Past Surgical History General: reports: Colonoscopy Ortho: reports: Knee replacement Cardiovascular: reports: Coronary stent, Lobectomy - Family & Social History Family History Comment/Other: He reports no significant family history to his knowledge. Living arrangement: At home Living Situation: With spouse/s.o. Social History Notes: He is currently at [facility] for rehab after his recent small bowel obstruction due to internal hernia and ischemic bowel. He normally resides at home with his . He has not smoked for 50 years. He will have 2 to 3 glasses of wine on a daily basis. - POLST Patient has POLST: No Meds/Allgy - Home Medications Home Medications: Ambulatory Orders Medication Instructions Recorded Confirmed Aspirin 81 mg PO DAILY 01/26/17 05/08/20 Atorvastatin [Lipitor] 80 mg PO DAILY 01/26/17 05/08/20 Metoprolol Tartrate 25 mg PO DAILY 01/26/17 05/08/20 Sertraline [Zoloft] 100 mg PO DAILY 01/26/17 05/08/20 Albuterol Sulfate [Proair Hfa 90 mcg INH PRN PRN 04/15/20 05/08/20 Inhaler] Alpha Lipoic Acid 600 mg PO DAILY 04/15/20 05/08/20 Clobetasol 0.05% Oint [Temovate 10 mg TOP DAILY 04/15/20 05/08/20 0.05% Oint] Gabapentin [Neurontin] 300 mg PO BID 04/15/20 05/08/20 Hydrocortisone/Pramoxine 10 mg TOP DAILY 04/15/20 05/08/20 [Hydrocort-Pramoxine 2.5-1% Crm] Ipratropium [Atrovent] 42 mcg INH HS 04/15/20 05/08/20 Mupirocin Calcium [Mupirocin] 15 mg TOP DAILY 04/15/20 05/08/20 Nitroglycerin [Nitrostat] 1 tab SL DAILY 04/15/20 05/08/20 Oxybutynin [Ditropan] 10 mg PO DAILY 04/15/20 05/08/20 Tamsulosin [Flomax] 0.4 mg PO DAILY 04/15/20 05/08/20 Triamcinolone 0.1% Oint [Kenalog 1 mg TOP DAILY 04/15/20 05/08/20 0.1% Oint] metroNIDAZOLE 0.75% GEL 2 gm TOP DAILY 04/15/20 05/08/20 polyethylene glycoL 3350 [Miralax] 17 gm PO DAILY #14 packet 04/28/20 05/08/20 LORazepam [Ativan] 0.5 mg PO PRN PRN 05/08/20 05/08/20 - Allergies Allergies/Adverse Reactions: Allergies Allergy/AdvReac Type Severity Reaction Status Date / Time No Known Drug Allergies Allergy Verified 05/08/20 14:52 Review of Systems - Constitutional Constitutional: reports: Fatigue. denies: Fever, Chills, Malaise, Poor appetite - Cardiovascular Cariovascular: reports: Lightheadedness. denies: Chest pain, Edema, Syncope, Exertional dyspnea, Decr. exercise tolerance - Respiratory Respiratory: denies: Cough, SOB at rest, SOB with exertion - Gastrointestinal Gastrointestinal: reports: Diarrhea. denies: Abdominal pain, Constipation, Rectal bleeding, Nausea, Vomiting - Genitourinary Genitourinary: denies: Dysuria, Urgency - Musculoskeletal Musculoskeletal: denies: Muscle pain, Back pain, Muscle weakness - Integumentary Integumentary: denies: Rash - Neurological Neurological: reports: General weakness, Dizziness. denies: Focal weakness, Numbness - All Other Systems All Other Systems: reports: Reviewed and negative Exam - Vital Signs Reviewed Vital Signs: Yes Vital Signs: Vital Signs x48h Temp Pulse Resp BP Pulse Ox 05/08/20 21:12 36.4 C L 75 16 103/57 L 96 05/08/20 21:04 36.4 C L 74 16 97/56 L 96 05/08/20 20:58 36.4 C L 77 13 115/57 L 97 05/08/20 19:51 37.4 C 72 16 123/68 99 05/08/20 19:31 36.2 C L 70 16 130/78 99 05/08/20 19:01 36.5 C 73 18 133/70 H 99 05/08/20 18:30 72 16 123/68 99 02/01/21 18:00 74 18 121/73 05/08/20 17:30 80 19 126/63 99 05/08/20 17:13 37.4 C 82 05/08/20 17:08 81 20 135/79 H 100 05/08/20 16:42 75 20 144/78 H 98 05/08/20 16:34 75 19 100 05/08/20 16:23 78 16 150/73 H 100 05/08/20 15:55 151/85 H 05/08/20 15:26 74 23 115/71 99 05/08/20 15:23 71 18 144/83 H 99 05/08/20 14:28 36.6 C 67 19 150/93 H 97 - Physical Exam General Appearance: positive: No acute distress, Alert Eyes Bilateral: positive: Normal inspection, Conjunctivae nml ENT: positive: ENT inspection nml, Dry mucous membranes. negative: No signs of dehydration Neck: positive: Nml inspection Respiratory: positive: No respiratory distress. negative: Wheezes, Rales Cardiovascular: positive: Regular rate & rhythm, No murmur. negative: Tachyca rdia Abdomen: positive: Non-tender, No distention, Other (Carmencita in place over anterior aspect of abdomen. No significant erythema.). negative: Tenderness, Guarding, Rebound Rectal: positive: Other (Dressing is in place over the sacrum.) Skin: positive: Warm, Dry Extremities: positive: No pedal edema Neurologic/Psychiatric: positive: Motor nml. negative: Sensation nml, Disoriented to person, Disoriented to place Conclusion/Plan - Diagnosis Diagnosis: 1) Sepsis. 2) Necrotizing fasciitis of left gluteus grace. 3) Orthostatic hypotension. 4) Recent small bowel rescetion. 5) History of COPD. 6) History of CAD. 7) LONNIE on CPAP - Plan Plan: He has sepsis secondary to necrotizing fasciitis of the left gluteus grace. He is now status post debridement with general surgery and the findings were consistent with necrotizing fasciitis. Fortunately, he appears hemodynamically stable at this time. I agree with starting the patient on meropenem, vancomycin , clindamycin IV given the concern for necrotizing fasciitis. Check CRP this evening and trend daily. Daily CBC. We will follow up his blood cultures. Further debridement and wound care as per general surgery. The plan is likely to transfer the patient in the morning to higher level of care. With regards to his orthostatic hypotension, this is likely due to infection and hypobulimia. He has received multiple liters of IV fluids and we will continue him on maintenance IV fluids. We will check orthostatics with each shift. If he remains orthostatic, will check cortisol in the a.m. We will look to resume the rest of his home medications over next 24 to 48 hours when clinically appropriate. We will start him on duo nebs every 4 hours and albuterol as needed. - Lab Results Lab results reviewed: Yes Regulo Bones: 05/08/20 14:54 05/08/20 14:54 - Diagnostic Imaging Results Diagnostic Imaging Results: positive: Final report reviewed - EKG Results EKG Interpreted Independently: Yes EKG Findings: Sinus rhythm with nonspecific ST segment changes in the inferior leads.
[2020-05-08 21:42] LABS: BASOPHILS % (AUTO) 0.2 %; EOSINOPHILS % (AUTO) 0.2 %; HGB - HEMOGLOBIN 9.6 g/dL (14.0-18.0); LYMPHOCYTES % (AUTO) 8.8 %; MEAN CORPUSCULAR HEMOGLOBIN 31.2 pg (27.0-31.0); MEAN CORPUSCULAR HGB CONC 32.9 g/dL (32.0-36.0); MEAN CORPUSCULAR VOLUME 94.8 fL (80.0-94.0); MEAN PLATELET VOLUME 9.4 fL (7.4-11.4); MONOCYTES # (AUTO) 0.8 10^3/uL (0.0-1.0); MONOCYTES % (AUTO) 6.6 %; NEUTROPHILS # (AUTO) 9.6 10^3/uL (1.5-6.6); NEUTROPHILS % (AUTO) 83.5 %; PLT - PLATELET COUNT 213 10^3/uL (130-450); RED BLOOD COUNT 3.08 10^6/uL (4.70-6.10); RED CELL DISTRIBUTION WIDTH 12.4 % (12.0-15.0); WHITE BLOOD COUNT 11.5 x10^3/uL (4.8-10.8)
[2020-05-08 21:49] LABS: ALBUMIN 2.5 g/dL (3.2-5.5); ALBUMIN/GLOBULIN RATIO 0.9 (1.0-2.2); BILIRUBIN,TOTAL 0.9 mg/dL (0.2-1.0); CALCIUM 7.8 mg/dL (8.5-10.3); CREATININE 0.6 mg/dL (0.6-1.2); TOTAL PROTEIN 5.4 g/dL (6.7-8.2)
[2020-05-08] MEDS ORDERED: IPRATROPIUM/ALBUTEROL 3 ML NEB INH SCH (22:00)
[2020-05-08] MEDS: polyethylene glycoL 3350 17 GM PACKET PO SCH (22:00)
[2020-05-08] MEDS: MEROPENEM 1 GM in SODIUM CHLORIDE 0.9% MINIBAG 100 ML IV SCH (22:10)
--- NOTE | 2020-05-08 22:50 | OPERATIVE REPORT ---
Operative Report - General Admit Date: 05/08/20 Procedure Date: 05/08/20 Planned Procedure: 1. Left ultrasound-guided central venous access, internal jugular 2. Left internal jugular central venous catheter placement 3. Radiographic confirmation of left central venous catheter placement Pre-Op Diagnosis: Shock; Subcu Gas; Nec Fasciitis; Mult Comorbid; Recent lap; Sacral Wound Procedure Performed: 1. Left ultrasound-guided central venous access, internal jugular 2. Left internal jugular central venous catheter placement 3. Radiographic confirmation of left central venous catheter placement Post Op Diagnosis: Same; successful placement of Lt internal jugular CVC; no PTX - Procedure Note Primary Surgeon: Teri Secondary Surgeon: Lucy Anesthesia Provider: None Indications: Hemodynamic monitoring; reliable central venous access. Findings: See below Complications: NONE - Other Other Information/Narrative: INTRAOPERATIVE FINDINGS: Left internal jugular was noted ultrasonographically. It was passed for the guidewire without any complication, which was confirmed by ultrasound imaging. The catheter ultimately was placed at the junction between the SVC and the atria of the atriocaval junction without any complication as confirmed by postoperative x-ray. Again, postoperative radiography confirmed placement. Patient tolerated the procedure well for which there was no complication. The port flushed easily, it aspirated well across all 3 ports. Preoperative diagnosis: 1. Hypovolemic shock 2. Recent Laparotomy 3. Suspicion for sepsis 4. Necrotizing Fasciitis 5. Need for additional IV access Postoperative diagnosis: 1. Hypovolemic shock 2. Recent Laparotomy 3. Suspicion for sepsis 4. Necrotizing Fasciitis 5. Need for additional IV access 6. Successful placement of left internal jugular triple-lumen catheter PROCEDURAL REPORT The patient was prepped for Left neck and chest in the usual sterile fashion. Time out was called and agreed to by all in the room. Please note secondary to the urgency of the procedure verbal informed consent was obtained and witnessed by nurse attendant in room. The ultrasound probe was draped with a sterile sleeve, and internal jugular was noted. The patient was placed in Trendelenburg, and the vein was cannulated using the introducer needle without any complication. There was venous return. The wire was easily passed through the introducer needle without any complication. The wire placement was confirmed Ultrasonographically. At this time, the wire was secured after the needle was removed. Thereafter, we dilated the tract after having incise the skin to accommodate. This was achieved without any complication. The triple-lumen catheter was already flushed and once the dilator was removed over the wire, the triple-lumen catheter was placed and appropriately positioned anticipating tip at the atriocaval junction. We had easy return of blood x3 ports which flushed without any complication as well. Please note the patient was performed for postoperative x-ray which confirmed placement at the atriocaval junction. The patient tolerated the procedure well for which there was no complication. All counts for sponges, needles, instruments were correct at the conclusion of this operative intervention. Post-op XR was reviewed without any deviation.
[2020-05-08] MEDS: SODIUM CHLORIDE FLUSH 0.9% 10 ML SYRINGE IVP SCH (22:53)
[2020-05-08] MEDS: SODIUM CHLORIDE FLUSH 0.9% 10 ML SYRINGE IVP PRN (22:53)
[2020-05-08] MEDS: oxyCODONE 5 MG TABLET PO PRN (23:00)
[2020-05-08] MEDS: KETOROLAC 30 MG/ML VIAL IVP SCH (23:54)
[2020-05-08] MEDS: methocarbamoL 500 MG TABLET PO SCH (23:54)
[2020-05-08] MEDS: METOCLOPRAMIDE 10 MG/2 ML VIAL IVP SCH (23:54)
[2020-05-09] MEDS ORDERED: SODIUM CHLORIDE 0.9% 500 ML IV PRN (00:19)
[2020-05-09] MEDS: CLINDAMYCIN 600 MG/50 ML 50 ML IV SCH ×3 (00:50→16:38)
[2020-05-09] MEDS ORDERED: VANCOMYCIN INJ 1.25 GM in SODIUM CHLORIDE 0.9% 250 ML IV SCH (05:00)
[2020-05-09] MEDS: methocarbamoL 500 MG TABLET PO SCH ×4 (05:15→23:49)
[2020-05-09] MEDS: SODIUM CHLORIDE FLUSH 0.9% 10 ML SYRINGE IVP PRN ×3 (05:27→08:37)
[2020-05-09 05:33] LABS: BASOPHILS % (AUTO) 0.3 %; EOSINOPHILS % (AUTO) 0.4 %; HGB - HEMOGLOBIN 8.5 g/dL (14.0-18.0); LYMPHOCYTES # (AUTO) 0.8 10^3/uL (1.5-3.5); LYMPHOCYTES % (AUTO) 11.1 %; MEAN CORPUSCULAR HEMOGLOBIN 30.7 pg (27.0-31.0); MEAN CORPUSCULAR HGB CONC 32.9 g/dL (32.0-36.0); MEAN CORPUSCULAR VOLUME 93.1 fL (80.0-94.0); MEAN PLATELET VOLUME 9.3 fL (7.4-11.4); MONOCYTES # (AUTO) 0.5 10^3/uL (0.0-1.0); MONOCYTES % (AUTO) 7.4 %; NEUTROPHILS # (AUTO) 5.6 10^3/uL (1.5-6.6); NEUTROPHILS % (AUTO) 80.1 %; PLT - PLATELET COUNT 169 10^3/uL (130-450); RED BLOOD COUNT 2.77 10^6/uL (4.70-6.10); RED CELL DISTRIBUTION WIDTH 12.3 % (12.0-15.0)
[2020-05-09 05:58] LABS: ALBUMIN 2.2 g/dL (3.2-5.5); ALBUMIN/GLOBULIN RATIO 0.7 (1.0-2.2); BILIRUBIN,TOTAL 0.8 mg/dL (0.2-1.0); CALCIUM 7.7 mg/dL (8.5-10.3); CREATININE 0.6 mg/dL (0.6-1.2); CRP - C-REACTIVE PROTEIN 7.1 mg/dL (0-1.0); MAGNESIUM 1.3 mg/dL (1.7-2.8); PHOSPHORUS 3.3 mg/dL (2.5-4.6); TOTAL PROTEIN 5.2 g/dL (6.7-8.2)
[2020-05-09] MEDS: MEROPENEM 1 GM in SODIUM CHLORIDE 0.9% MINIBAG 100 ML IV SCH ×3 (06:11→22:03)
[2020-05-09] MEDS: METOCLOPRAMIDE 10 MG/2 ML VIAL IVP SCH ×4 (06:12→23:51)
[2020-05-09] MEDS: KETOROLAC 30 MG/ML VIAL IVP SCH ×4 (06:12→23:51)
[2020-05-09] MEDS: MAGNESIUM SULFATE 2 GRAM 2 GM/50 ML BAG IV SCH ×2 (06:42→08:18)
[2020-05-09] MEDS: IPRATROPIUM/ALBUTEROL 3 ML NEB INH SCH ×4 (07:38→18:03)
[2020-05-09] MEDS: D5NS W/20 MEQ KCL 1,000 ML IV SCH ×2 (08:18→19:07)
--- NOTE | 2020-05-09 08:18 | XRAY Report ---
PROCEDURE: Chest for Line Placement INDICATIONS: line placement TECHNIQUE: One view of the chest was acquired. COMPARISON: 04/26/2020 chest x-ray FINDINGS: Surgical changes and devices: Left internal jugular vein central venous catheter is present, tip of w hich projects over the upper SVC.. Lungs and pleura: No pleural effusions or pneumothorax. Mild right basilar atelectasis versus pneumo razia. Mediastinum: Mediastinal contours appear normal. Heart size is enlarged. Bones and chest wall: No suspicious bony lesions. Overlying soft tissues appear unremarkable. IMPRESSION: Mild right basilar atelectasis versus pneumonia. Reviewed by: Colten Nash MD on 05/09/2020 8:17 AM PST Approved by: Colten Nash MD on 05/09/2020 8:17 AM PST Station ID: [id number]
[2020-05-09] MEDS: SODIUM CHLORIDE FLUSH 0.9% 10 ML SYRINGE IVP SCH ×3 (08:24→23:51)
[2020-05-09] MEDS: polyethylene glycoL 3350 17 GM PACKET PO SCH ×2 (08:59→20:32)
[2020-05-09] MEDS: TAMSULOSIN 0.4 MG CAPSULE PO SCH (08:59)
[2020-05-09] MEDS ORDERED: IPRATROPIUM/ALBUTEROL 3 ML NEB INH SCH (09:00)
[2020-05-09] MEDS: HEPARIN 5,000 UNIT/ML VIAL SUBQ SCH ×2 (09:04→20:32)
--- NOTE | 2020-05-09 11:08 | PHARMACY PROGRESS NOTE ---
- Therapy Status Vancomycin regimen day #: 2 (Started 05/08 at 1617 (2g x1, then 1.25 g q12h)) Therapy status: Awaiting steady state Basis for treatment: Empirical Treatment indication: Necrotizing Fasciitis Trough goal: 15-20 Concurrent antibiotics: Meropenem, Clindamycin - ANDRE Risk Risk level for Acute Kidney Injury: Moderate Acute Kidney Injury risk factors: Wt >100kg or BMI >40, IV contrast within 72 hrs, Goal trough >15, Admission to ICU - Monitoring and Recommendation Clinical response to treatment: I&O Previous 24 hours 05/07/20 05/08/20 05/09/20 23:59 23:59 23:59 Intake Total 4780.00 1672.667 Output Total 650 705 Balance 4130.00 967.667 Lab Results 05/09/20 05/08/20 05/08/20 05:10 21:17 14:54 BUN 11 10 12 Creatinine 0.6 0.6 0.8 Estimated GFR (MDRD) 129 129 93 Will increase dose to 1.75 g IV q12h, given body weight, current renal function, and severity of infection. Check level prior to 5th dose 3 @1630 Monitoring plan: Daily serum creatinine, Draw trough early (Level due 05/10 @1630 prior to 5th dose)
[2020-05-09] MEDS ORDERED: VANCOMYCIN INJ 1.75 GM in SODIUM CHLORIDE 0.9% 500 ML IV SCH (11:10)
--- NOTE | 2020-05-09 15:00 | PHARMACY PROGRESS NOTE ---
- Best Possible Medication History Admit Date and Time: 05/08/20 1730 Processed by: Pharmacy Medication History completed: Yes Patient Interview: Pt unable to participate Secondary Source(s): Physician records, Pharmacy records, Insurance records Medication list reviewed by me. Attempt to interview patient made by data acquisition technician, Angel, pt was unable to answer questions regarding his medication. Med list from insurance, pharmacy fill, and MD office reviewed. Compilation of medications entered into [employer]. Duplicate steroid creams removed, Metoprolol tartrate listed on med list from MD office, insurance shows metoprolol succinate filled. As the person ultimately responsible for medication therapy, providers are able to order a medication from an existing home medication list in [employer] via the "Reconcile Routine" prior to Confirmation of that medication by retail support specialist. Such practice is discouraged except when the physician, in their clinical judgment, deems that a medical need exists for a medication without regard to previous use.
[2020-05-09] MEDS: oxyCODONE 5 MG TABLET PO PRN (16:36)
[2020-05-09] MEDS: VANCOMYCIN INJ 1.75 GM in SODIUM CHLORIDE 0.9% 500 ML IV SCH (16:41)
--- NOTE | 2020-05-09 19:09 | PROVIDER PROGRESS NOTE ---
Subjective - Prog Note Date Prog Note Date: 05/09/20 Prog Note Time: 19:06 - Subjective Pt reports feeling: Improved Subjective: He went to the operating room in the land economist hours, since that time is been seen by both Dr. Frias and Dr. Williamson (general surgery). While the wound is stable, it is still a significant large wound that they feel exceeds the ability of this facility to take care of it. Dr. Williamson has asked for transfer to [facility]. [facility] was accepted the patient but would like transfer tomorrow morning. Over the course of the day Mr. Hill did not have a fever. T-max was 37.6. His white cell count was elevated to 14.8 on admission and it is 7.0 at this time. Urine output since midnight is 1060 cc. Blood pressure is currently in the 148- 172 systolic range. His is at the bedside. Near tears as she describes the horrible roller coaster of healthcare crisis he has had over the last few weeks. She almost cannot bear it anymore. But she is trying to be strong for her . Current Medications - Current Medications Current Medications: Active Medications Albuterol (Albuterol Neb 2.5 Mg/3 Ml) 2.5 mg INH Q4HR PRN PRN Reason: Wheezing Albuterol/Ipratropium (Ipratropium/Albuterol 3 Ml Neb) 3 ml INH RTQID [facility] Last Admin: 05/09/20 18:03 Dose: 3 ml Documented by: Heparin Sodium (Porcine) (Heparin 5,000 Unit/Ml Vial) 5,000 unit SUBQ BID [facility] Last Admin: 05/09/20 09:04 Dose: 5,000 unit Documented by: Hydromorphone HCl (Hydromorphone Head Batcher 20mg/100ml) 0 mg IV PRN PRN; Protocol PRN Reason: PAIN Potassium Chloride/Dextrose/Sod Cl () 1,000 mls @ 100 mls/hr IV .Q10H [facility] Last Admin: 05/09/20 19:07 Dose: 100 mls/hr Documented by: Meropenem 1 gm/ Sodium (Chloride) 100 mls @ 200 mls/hr IV Q8H [facility] Last Infusion: 05/09/20 14:35 Dose: Infused Documented by: Clindamycin Phosphate (Cleocin 600 Mg/50 Ml) 50 mls @ 100 mls/hr IV Q8H [facility] Last Admin: 05/09/20 16:38 Dose: 100 mls/hr Documented by: Sodium Chloride (Normal Saline 0.9%) 500 mls @ 0 mls/hr IV Q24H PRN PRN Reason: TKO RATE Last Infusion: 05/09/20 07:00 Dose: 0 mls/hr Documented by: Vancomycin HCl 1.75 gm/ Sodium (Chloride) 500 mls @ 250 mls/hr IV Q12H [facility] Last Admin: 05/09/20 16:41 Dose: 250 mls/hr Documented by: Ipratropium Hart (Ipratropium 0.2 Mg/Ml Neb) 0.5 mg INH Q6HR PRN PRN Reason: Wheezing Ketorolac Tromethamine (Ketorolac 30 Mg/Ml Vial) 15 mg IVP Q6HR [facility] Stop: 05/14/20 00:00 Last Admin: 05/09/20 19:04 Dose: 15 mg Documented by: Methocarbamol (Methocarbamol 500 Mg Tablet) 500 mg PO Q6HR [facility] Last Admin: 05/09/20 19:04 Dose: 500 mg Documented by: Metoclopramide HCl (Metoclopramide 10 Mg/2 Ml Vial) 10 mg IVP Q6HR [facility] Last Admin: 05/09/20 19:06 Dose: 10 mg Documented by: Ondansetron HCl (Ondansetron 4 Mg/2 Ml Vial) 4 mg IVP Q6HR PRN PRN Reason: Nausea / Vomiting Oxycodone HCl (Oxycodone 5 Mg Tablet) 5 mg PO Q4HR PRN PRN Reason: PAIN Last Admin: 05/09/20 16:36 Dose: 5 mg Documented by: Polyethylene Glycol (Polyethylene Glycol 3350 17 Gm Packet) 17 gm PO BID [facility] Last Admin: 05/09/20 08:59 Dose: 17 gm Documented by: Sodium Chloride (Sodium Chloride Flush 0.9% 10 Ml Syringe) 10 ml IVP 0100,0900,1700 [facility] Last Admin: 05/09/20 08:24 Dose: 30 ml Documented by: Sodium Chloride (Sodium Chloride Flush 0.9% 10 Ml Syringe) 10 ml IVP PRN PRN PRN Reason: NEEDED PER PROVIDER ORDERS Last Admin: 05/09/20 08:37 Dose: 10 ml Documented by: Sodium Chloride (Sodium Chloride Flush 0.9% 10 Ml Syringe) 20 ml IVP PRN PRN PRN Reason: After Blood Draw Last Admin: 05/09/20 05:27 Dose: 20 ml Documented by: Tamsulosin HCl (Tamsulosin 0.4 Mg Capsule) 0.4 mg PO DAILY [facility] Last Admin: 05/09/20 08:59 Dose: 0.4 mg Documented by: Albuterol Sulfate [Proair Hfa Inhaler] 90 mcg INH PRN PRN 04/15/20 Alpha Lipoic Acid 600 mg PO DAILY 04/15/20 Gabapentin [Neurontin] 300 mg PO BID 04/15/20 Ipratropium [Atrovent] 42 mcg INH HS 04/15/20 Mupirocin Calcium [Mupirocin] 15 mg TOP DAILY 04/15/20 Nitroglycerin [Nitrostat] 1 tab SL DAILY 04/15/20 Tamsulosin [Flomax] 0.4 mg PO DAILY 04/15/20 Triamcinolone 0.1% Oint [Kenalog 0.1% Oint] 1 mg TOP DAILY 04/15/20 metroNIDAZOLE 0.75% GEL 2 gm TOP DAILY 04/15/20 LORazepam [Ativan] 0.5 mg PO PRN PRN 05/08/20 Aspirin EC [Ecotrin] 81 mg PO DAILY 05/09/20 Atorvastatin Calcium [Lipitor] 80 mg PO DAILY 05/09/20 Metoprolol Succinate [Toprol Xl] 25 mg PO DAILY 05/09/20 Oxybutynin Chloride [Ditropan Xl] 10 mg PO DAILY 05/09/20 Sertraline HCl [Zoloft] 100 mg PO DAILY 05/09/20 Objective - Vital Signs/Intake & Output Reviewed Vital Signs: Yes Vital Signs: Vital Signs Temp Pulse Pulse Resp BP Pulse Ox 05/09/20 18:07 84 16 05/09/20 18:00 93 16 165/76 H 97 05/09/20 17:00 88 20 172/79 H 98 05/09/20 16:00 37.6 C 85 16 148/76 H 95 05/09/20 15:17 79 14 Intake & Output: Intake & Output 05/06/20 05/07/20 05/08/20 05/09/20 23:59 23:59 23:59 23:59 Intake Total 4780.00 2771.000 Output Total 650 1060 Balance 4130.00 1711.000 - Objective General Appearance: positive: Alert (but sleepy, wakes to m voice and to ) Eyes Bilateral: positive: PERRL Neck: positive: No JVD Respiratory: positive: No respiratory distress, Other (diminshed at bases but no resp distress). negative: Wheezes, Rales, Rhonchi Cardiovascular: positive: Regular rate & rhythm. negative: Gallop/S4 Abdomen: positive: Nml bowel sounds, No distention, Abnml bowel sounds (hypoactive) Skin: positive: Warm, Dry, Pallor Extremities: positive: Full ROM Neurologic/Psychiatric: positive: CN's nml (2-12), Motor nml, Disoriented to ti me - Lab Results Fish Bones: 05/09/20 05:10 05/09/20 05:10 Other Labs: Lab Results x24hrs 05/09/20 05/09/20 05/09/20 Range/Units 18:13 12:02 05:19 WBC (4.8-10.8) x10^3/uL RBC (4.70-6.10) 10^6/uL Hgb (14.0-18.0) g/dL Hct (42.0-52.0) % MCV (80.0-94.0) fL MCH (27.0-31.0) pg MCHC (32.0-36.0) g/dL RDW (12.0-15.0) % Plt Count (130-450) 10^3/uL MPV (7.4-11.4) fL Neut # (Auto) (1.5-6.6) 10^3/uL Lymph # (Auto) (1.5-3.5) 10^3/uL [place] # (Auto) (0.0-1.0) 10^3/uL Eos # (Auto) (0.0-0.7) 10^3/uL Baso # (Auto) (0.0-0.1) 10^3/uL Absolute Nucleated RBC x10^3/uL Nucleated RBC % /100WBC Sodium (135-145) mmol/L Potassium (3.5-5.0) mmol/L Chloride (101-111) mmol/L Carbon Dioxide (21-32) mmol/L Anion Gap (6-13) BUN (6-20) mg/dL Creatinine (0.6-1.2) mg/dL Estimated GFR (MDRD) (>89) Glucose (70-100) mg/dL POC Whole Bld Glucose 150 H 158 H 150 H (70 - 100) mg/dL Lactic Acid (0.5-2.2) mmol/L Calcium (8.5-10.3) mg/dL Phosphorus (2.5-4.6) mg/dL Magnesium (1.7-2.8) mg/dL Total Bilirubin (0.2-1.0) mg/dL AST (10-42) IU/L ALT (10-60) IU/L Alkaline Phosphatase (42-121) IU/L Troponin I High Sens (2.3-19.7) ng/L C-Reactive Protein (0-1.0) mg/dL Total Protein (6.7-8.2) g/dL Albumin (3.2-5.5) g/dL Globulin (2.1-4.2) g/dL Albumin/Globulin Ratio (1.0-2.2) Nasal Screen MRSA (PCR) (NEGATIVE) 05/09/20 05/09/20 05/08/20 Range/Units 05:10 05:10 23:33 WBC 7.0 (4.8-10.8) x10^3/uL RBC 2.77 L (4.70-6.10) 10^6/uL Hgb 8.5 L (14.0-18.0) g/dL Hct 25.8 L (42.0-52.0) % MCV 93.1 (80.0-94.0) fL MCH 30.7 (27.0-31.0) pg MCHC 32.9 (32.0-36.0) g/dL RDW 12.3 (12.0-15.0) % Plt Count 169 (130-450) 10^3/uL MPV 9.3 (7.4-11.4) fL Neut # (Auto) 5.6 (1.5-6.6) 10^3/uL Lymph # (Auto) 0.8 L (1.5-3.5) 10^3/uL [place] # (Auto) 0.5 (0.0-1.0) 10^3/uL Eos # (Auto) 0.0 (0.0-0.7) 10^3/uL Baso # (Auto) 0.0 (0.0-0.1) 10^3/uL Absolute Nucleated RBC 0.00 x10^3/uL Nucleated RBC % 0.0 /100WBC Sodium 131 L (135-145) mmol/L Potassium 3.9 (3.5-5.0) mmol/L Chloride 101 (101-111) mmol/L Carbon Dioxide 24 (21-32) mmol/L Anion Gap 6.0 (6-13) BUN 11 (6-20) mg/dL Creatinine 0.6 (0.6-1.2) mg/dL Estimated GFR (MDRD) 129 (>89) Glucose 155 H (70-100) mg/dL POC Whole Bld Glucose 154 H (70 - 100) mg/dL Lactic Acid (0.5-2.2) mmol/L Calcium 7.7 L (8.5-10.3) mg/dL Phosphorus 3.3 (2.5-4.6) mg/dL Magnesium 1.3 L (1.7-2.8) mg/dL Total Bilirubin 0.8 (0.2-1.0) mg/dL AST 12 (10-42) IU/L ALT 17 (10-60) IU/L Alkaline Phosphatase 86 (42-121) IU/L Troponin I High Sens (2.3-19.7) ng/L C-Reactive Protein 7.1 H (0-1.0) mg/dL Total Protein 5.2 L (6.7-8.2) g/dL Albumin 2.2 L (3.2-5.5) g/dL Globulin 3.0 (2.1-4.2) g/dL Albumin/Globulin Ratio 0.7 L (1.0-2.2) Nasal Screen MRSA (PCR) (NEGATIVE) 05/08/20 05/08/20 05/08/20 Range/Units 21:36 21:36 21:17 WBC 11.5 H (4.8-10.8) x10^3/uL RBC 3.08 L (4.70-6.10) 10^6/uL Hgb 9.6 L (14.0-18.0) g/dL Hct 29.2 L (42.0-52.0) % MCV 94.8 H (80.0-94.0) fL MCH 31.2 H (27.0-31.0) pg MCHC 32.9 (32.0-36.0) g/dL RDW 12.4 (12.0-15.0) % Plt Count 213 (130-450) 10^3/uL MPV 9.4 (7.4-11.4) fL Neut # (Auto) 9.6 H (1.5-6.6) 10^3/uL Lymph # (Auto) 1.0 L (1.5-3.5) 10^3/uL [place] # (Auto) 0.8 (0.0-1.0) 10^3/uL Eos # (Auto) 0.0 (0.0-0.7) 10^3/uL Baso # (Auto) 0.0 (0.0-0.1) 10^3/uL Absolute Nucleated RBC 0.00 x10^3/uL Nucleated RBC % 0.0 /100WBC Sodium 130 L (135-145) mmol/L Potassium 4.1 (3.5-5.0) mmol/L Chloride 97 L (101-111) mmol/L Carbon Dioxide 25 (21-32) mmol/L Anion Gap 8.0 (6-13) BUN 10 (6-20) mg/dL Creatinine 0.6 (0.6-1.2) mg/dL Estimated GFR (MDRD) 129 (>89) Glucose 158 H (70-100) mg/dL POC Whole Bld Glucose (70 - 100) mg/dL Lactic Acid 1.1 (0.5-2.2) mmol/L Calcium 7.8 L (8.5-10.3) mg/dL Phosphorus (2.5-4.6) mg/dL Magnesium (1.7-2.8) mg/dL Total Bilirubin 0.9 (0.2-1.0) mg/dL AST 13 (10-42) IU/L ALT 19 (10-60) IU/L Alkaline Phosphatase 89 (42-121) IU/L Troponin I High Sens (2.3-19.7) ng/L C-Reactive Protein 7.0 H (0-1.0) mg/dL Total Protein 5.4 L (6.7-8.2) g/dL Albumin 2.5 L (3.2-5.5) g/dL Globulin 2.9 (2.1-4.2) g/dL Albumin/Globulin Ratio 0.9 L (1.0-2.2) Nasal Screen MRSA (PCR) (NEGATIVE) 05/08/20 05/08/20 Range/Units 21:17 21:17 WBC (4.8-10.8) x10^3/uL RBC (4.70-6.10) 10^6/uL Hgb (14.0-18.0) g/dL Hct (42.0-52.0) % MCV (80.0-94.0) fL MCH (27.0-31.0) pg MCHC (32.0-36.0) g/dL RDW (12.0-15.0) % Plt Count (130-450) 10^3/uL MPV (7.4-11.4) fL Neut # (Auto) (1.5-6.6) 10^3/uL Lymph # (Auto) (1.5-3.5) 10^3/uL [place] # (Auto) (0.0-1.0) 10^3/uL Eos # (Auto) (0.0-0.7) 10^3/uL Baso # (Auto) (0.0-0.1) 10^3/uL Absolute Nucleated RBC x10^3/uL Nucleated RBC % /100WBC Sodium (135-145) mmol/L Potassium (3.5-5.0) mmol/L Chloride (101-111) mmol/L Carbon Dioxide (21-32) mmol/L Anion Gap (6-13) BUN (6-20) mg/dL Creatinine (0.6-1.2) mg/dL Estimated GFR (MDRD) (>89) Glucose (70-100) mg/dL POC Whole Bld Glucose (70 - 100) mg/dL Lactic Acid (0.5-2.2) mmol/L Calcium (8.5-10.3) mg/dL Phosphorus (2.5-4.6) mg/dL Magnesium (1.7-2.8) mg/dL Total Bilirubin (0.2-1.0) mg/dL AST (10-42) IU/L ALT (10-60) IU/L Alkaline Phosphatase (42-121) IU/L Troponin I High Sens 7.0 (2.3-19.7) ng/L C-Reactive Protein (0-1.0) mg/dL Total Protein (6.7-8.2) g/dL Albumin (3.2-5.5) g/dL Globulin (2.1-4.2) g/dL Albumin/Globulin Ratio (1.0-2.2) Nasal Screen MRSA (PCR) NEGATIVE (NEGATIVE) Sepsis Event Note (H) - Evaluation Possible source of Sepsis: positive: Skin/soft tissue
[2020-05-10] MEDS: CLINDAMYCIN 600 MG/50 ML 50 ML IV SCH ×2 (00:59→09:14)
[2020-05-10] MEDS: oxyCODONE 5 MG TABLET PO PRN ×2 (03:02→11:03)
[2020-05-10] MEDS: VANCOMYCIN INJ 1.75 GM in SODIUM CHLORIDE 0.9% 500 ML IV SCH (04:39)
[2020-05-10] MEDS: SODIUM CHLORIDE FLUSH 0.9% 10 ML SYRINGE IVP PRN ×3 (04:52→05:43)
[2020-05-10 05:11] LABS: BASOPHILS % (AUTO) 0.2 %; EOSINOPHILS # (AUTO) 0.1 10^3/uL (0.0-0.7); HGB - HEMOGLOBIN 7.7 g/dL (14.0-18.0); LYMPHOCYTES # (AUTO) 0.6 10^3/uL (1.5-3.5); MEAN CORPUSCULAR HEMOGLOBIN 30.7 pg (27.0-31.0); MEAN CORPUSCULAR HGB CONC 32.6 g/dL (32.0-36.0); MEAN PLATELET VOLUME 9.7 fL (7.4-11.4); MONOCYTES # (AUTO) 0.4 10^3/uL (0.0-1.0); MONOCYTES % (AUTO) 7.5 %; NEUTROPHILS # (AUTO) 3.8 10^3/uL (1.5-6.6); NEUTROPHILS % (AUTO) 77.7 %; PLT - PLATELET COUNT 162 10^3/uL (130-450); RED BLOOD COUNT 2.51 10^6/uL (4.70-6.10); RED CELL DISTRIBUTION WIDTH 12.4 % (12.0-15.0); WHITE BLOOD COUNT 4.9 x10^3/uL (4.8-10.8)
[2020-05-10 05:28] LABS: ALBUMIN 2.2 g/dL (3.2-5.5); ALBUMIN/GLOBULIN RATIO 0.8 (1.0-2.2); BILIRUBIN,TOTAL 0.7 mg/dL (0.2-1.0); CALCIUM 7.5 mg/dL (8.5-10.3); CREATININE 0.6 mg/dL (0.6-1.2); PHOSPHORUS 2.8 mg/dL (2.5-4.6); TOTAL PROTEIN 5.1 g/dL (6.7-8.2)
[2020-05-10] MEDS: methocarbamoL 500 MG TABLET PO SCH ×2 (05:39→11:04)
[2020-05-10] MEDS: D5NS W/20 MEQ KCL 1,000 ML IV SCH (05:42)
[2020-05-10] MEDS: MEROPENEM 1 GM in SODIUM CHLORIDE 0.9% MINIBAG 100 ML IV SCH (05:42)
[2020-05-10] MEDS: METOCLOPRAMIDE 10 MG/2 ML VIAL IVP SCH ×2 (05:43→11:09)
[2020-05-10] MEDS: KETOROLAC 30 MG/ML VIAL IVP SCH ×2 (05:43→11:05)
[2020-05-10] MEDS: IPRATROPIUM/ALBUTEROL 3 ML NEB INH SCH (07:42)
[2020-05-10] MEDS: TAMSULOSIN 0.4 MG CAPSULE PO SCH (09:24)
[2020-05-10] MEDS: polyethylene glycoL 3350 17 GM PACKET PO SCH (09:25)
[2020-05-10] MEDS: SODIUM CHLORIDE FLUSH 0.9% 10 ML SYRINGE IVP SCH (09:26)
[2020-05-10] MEDS: HEPARIN 5,000 UNIT/ML VIAL SUBQ SCH (09:29)
[2020-05-10 11:29] VITALS: BP 152/77
--- NOTE | 2020-05-20 19:22 | DISCHARGE SUMMARY ---
"Discharge Summary Admit Date: 05/08/20 Discharge Date: 05/10/20 Discharging Provider: Teri Code Status: Attempt Resuscitation Condition at Discharge: Stable Discharge Disposition: 02 Transfer Acute Care Hosp - DIAGNOSES Admission Diagnoses: 1. Sepsis due to necrotizing fasciitis. 2. Recent bowel resection/postoperative state 3. History of COPD 4. Obstructive sleep apnea on CPAP at home. 5. History of pulmonary lobectomy 6. History of diabetes 7. History of coronary artery disease status post Stents Discharge Diagnoses with Status of Each Condition: 1. Sepsis due to necrotizing fasciitis - STABLE/TREATED 2. Recent bowel resection/postoperative state - STABLE/TREATED 3. History of COPD - STABLE/Unchanged 4. Obstructive sleep apnea on CPAP at home - STABLE/Unchanged 5. History of pulmonary lobectomy - STABLE/Unchanged 6. History of diabetes - STABLE/Unchanged 7. History of coronary artery disease status post Stents - STABLE/Unchanged 8. Septic shock - RESOLVED - HPI History of Present Illness: 80-year-old male seen in clinic today for follow-up. Please see [facility] clinic notes signed and documented in this encounter visit. Secondary to orthostasis, near syncope, amongst others, the patient was sent to the emergency room for work-up. At that time he was noted for leukocytosis, hypotension, and was fluid resuscitated. He underwent CT scan that revealed concerns for necrotizing fasciitis. Multiple conversations were had with [facility] notably with Dr. Simmons. Initially Dr. Raines spoke to Dr. Simmons who initially refused the patient. After discussing with my partners and knowing this patient intimately fromhis recent hospitalization, I opted to call Dr. Simmons myself. The conversation was not productive and ultimately he refused the patient after I had suggested another provider potentially become involved. Given the delay in this patient's diagnosis likely during his convalescence and rehab, the significant concern of his CAT scan, and his potential further delay as it relates to transfer and timing of his operative intervention, I opted to call and the surgical team myself for operative intervention. I discussed with [facility] the possibility of transfer after initial debridement going forward. CT abdomen pelvis impression: 1. There was an asymmetrically enlarged left medial gluteal grace muscle with intramuscular air suggestive of myositis. No discrete drainable abscess collection is seen. Necrotizing fasciitis and gluteal region cannot be excluded. 2. Left deep decubitus ulcer in the lower sacrococcygeal region just left of the midline with cellulitis and underlying subcutaneous emphysema. No evidence of osteomyelitis in the adjacent sacrum and coccyx. 2. Suggestion of myositis involving the medial portion of the left gluteus grace muscle with intermuscular air pockets concerning for developing necrotizing fasciitis. No discrete drainable abscess collection is seen. 3. No peritoneal free fluid or free air no peritoneal abscess collection. No abnormal bowel wall thickening. Postsurgical changes seen in lower abdomen from partial small bowel resection with intact surgical anastomosis. No evidence of bowel obstruction. 4. Splenomegaly, no discrete splenic lesion. 5. Moderate amount of atherosclerotic disease throughout the coronary vessels and abdominal aorta. 6. Bibasilar scattered scarring atelectasis. Extensive calcified pleural plaques at the right lung base suggestive of prior asbestos exposure. Decreased right lung volume with mediastinal shift to the right. - CONSULTS | PROCEDURES Consultations: Hospitalist Procedures: Pre-Op Diagnosis: Shock; Subcu Gas; Nec Fasciitis; Mult Comorbid; Recent lap; Sacral Wound Procedure Performed: 1. Examination under anesthesia 2. Incision and drainage of necrotizing wound 3. Wide local excision of necrotizing skin and soft tissue infection 4. Washout of infected wound 5. Hemostasis by cautery and suture ligature 6. Packing of open widely excised necrotizing infectious wound Post Op Diagnosis: Necrotic fat, muscle, skin, with tracking along fascial plane - HOSPITAL COURSE Hospital Course: 80-year-old male complex recent surgical history multiple comorbid states to in clude COPD, CAD, diabetes, peripheral neuropathy, amongst others, who presents with concerns over early necrotizing infection of the skin and soft tissue of the sacrum. Discussed possible transfer however secondary to delay in miscommunication and ultimate refusal of patient by [facility], we opted for surgery emergently for wide local debridement washout IV antibiotics towards temporizing the patient for possible transfer. Risk and benefits discussed consent obtained. Operative staff in house. We will attempt to perform this under monitored anesthesia care with local given the patient's COPD and multiple comorbid states. Patient was taken for above listed procedure after discussing with [facility] that he would likely not undergo necessary emergent intervention in a timely fashion upon acceptance. Thus we opted to temporize and resuscitate. Patient was followed by the hospital service as well. Patient was maintained in the ICU. Patient was placed for central line for resuscitation and broad- spectrum antibiotics. 1. Sepsis due to necrotizing fasciitis. Criteria and vital signs have improved tremendously after surgery. Postoperative day #1. Vital signs, urine output, all stable. Patient to be transferred to outside facility tomorrow per surgery recommendations. 2. Recent necrosis of the bowel with bowel resection and discharged home. Currently bowels are stable. 3. History of COPD, no wheezing, no respiratory distress and oxygen requirement stable. Continue as needed nebs. 4. Obstructive sleep apnea on CPAP at home.When he was here the last time, he was restless and did not want CPAP. We will monitor him closely here and see if we need to put him on CPAP that is our equipment. Patient was transferred to [facility] after discussing with accepting physician the patient's multiple comorbid states and presenting concerns for necrotizing fasciitis. Notable recent abdominal surgery requiring damage control laparotomy for intestinal necrosis. After having undergone emergent wide local excision and debridement, patient was monitored in the ICU overnight and transferred to [facility] for higher level of care. He was already placed for central line and started empirically on broad- spectrum antibiotics for necrotizing fasciitis. Gupta catheter was in place as well. He was transferred with ACLS directly from the ICU. Hospital service was also involved in the patient's care. - ALLERGIES Allergies/Adverse Reactions: Allergies Allergy/AdvReac Type Severity Reaction Status Date / Time No Known Drug Allergies Allergy Verified 05/08/20 14:52 - MEDICATIONS Home Medications: Ambulatory Orders Medication Instructions Recorded Confirmed Albuterol Sulfate [Proair Hfa 90 mcg INH PRN PRN 04/15/20 05/09/20 Inhaler] Alpha Lipoic Acid 600 mg PO DAILY 04/15/20 05/09/20 Gabapentin [Neurontin] 300 mg PO BID 04/15/20 05/09/20 Ipratropium [Atrovent] 42 mcg INH HS 04/15/20 05/09/20 Mupirocin Calcium [Mupirocin] 15 mg TOP DAILY 04/15/20 05/08/20 Nitroglycerin [Nitrostat] 1 tab SL DAILY 04/15/20 05/09/20 Tamsulosin [Flomax] 0.4 mg PO DAILY 04/15/20 05/09/20 Triamcinolone 0.1% Oint [Kenalog 1 mg TOP DAILY 04/15/20 05/08/20 0.1% Oint] metroNIDAZOLE 0.75% GEL [Flagyl 2 gm TOP DAILY 04/15/20 05/08/20 Gel] polyethylene glycoL 3350 [Miralax] 17 gm PO DAILY #14 packet 04/28/20 05/09/20 LORazepam [Ativan] 0.5 mg PO PRN PRN 05/08/20 05/09/20 Aspirin EC [Ecotrin] 81 mg PO DAILY 05/09/20 05/09/20 Atorvastatin Calcium [Lipitor] 80 mg PO DAILY 05/09/20 05/09/20 Metoprolol Succinate [Toprol Xl] 25 mg PO DAILY 05/09/20 05/09/20 Oxybutynin Chloride [Ditropan Xl] 10 mg PO DAILY 05/09/20 05/09/20 Sertraline HCl [Zoloft] 100 mg PO DAILY 05/09/20 05/09/20 - PHYSICAL EXAM AT DISCHARGE General Appearance: positive: No acute distress, Alert Eyes Bilateral: positive: Normal inspection, PERRL, EOMI ENT: positive: ENT inspection nml Neck: positive: Nml inspection Respiratory: positive: Chest non-tender, No respiratory distress, Breath sounds nml. negative: Wheezes, Rales, Rhonchi Cardiovascular: positive: Regular rate & rhythm Abdomen: positive: Non-tender, Other (Abdominal [place]) Skin: positive: Color nml, Other (Large sacral and left gluteal wound packed with Betadine soaked gauze) Extremities: positive: Non-tender, Full ROM, Nml appearance Neurologic/Psychiatric: positive: Oriented x3, CN's nml (2-12), Motor nml, Sensation nml, Mood/affect nml - LABS Result Diagrams: 05/10/20 04:46 05/10/20 04:46 - DIAGNOSTIC IMAGING Diagnostic Imaging Results: Final report reviewed - SEPSIS Current Stage of Sepsis: Septic shock Possible source of Sepsis: Skin/soft tissue Confirmed Source and Organism (if known) of Sepsis: Sacral wound cultures resulted - FOLLOW UP Follow Up: Patient was transferred to [facility] after discussing with accepting physician the patient's multiple comorbid states and presenting concerns for necrotizing fasciitis. Notable recent abdominal surgery requiring damage control laparotomy for intestinal necrosis. After having undergone emergent wide local excision and debridement, patient was monitored in the ICU overnight and transferred to [facility] for higher level of care. He was already placed for central line and started empirically on broad-spectrum antibiotics for necrotizing fasciitis. Gupta catheter was in place as well. He was transferred with ACLS directly from the ICU. Hospital service was also involved in the patient's care. - TIME SPENT Time Spent in Discharge (Minutes): 60"
--- NOTE | 2020-05-21 05:22 | OPERATIVE REPORT ---
DATE OF SERVICE: 05/08/2020 Physician: Pranav Williamson MD Please refer to previously dictated operative note on date of service, 05/08/2020. INDICATIONS: An 80-year-old male with recent laparotomy for necrotic small bowel, secondary to internal herniation. He underwent damage control laparotomy with open abdomen and second look, with protestant of bowel continuity on subsequent evaluation. He had a prolonged intubation and ICU stay. He was ultimately transitioned to rehab. During his postoperative visit, he was noted for near syncope and orthostasis at our outpatient clinic. He was, as a consequence, transported by EMS to our emergency room. Discussion with the ER revealed concerns for necrotizing fasciitis of a sacral wound. Secondary to his multiple comorbid states and his COPD, complicated by history of right lobectomy, which resulted in prolonged intubation and ICU stay during recent hospitalization, we attempted to transfer the patient to [facility]; however, he was refused both by the initial discussion with Dr. Ward, the ER physician, who petitioned for transfer on our behalf and directly whilst I discussed transfer with the on-call surgeon at [facility]. Ultimately, I spoke with the chair of acute care surgery division, who was willing to accept the patient. However, after an already significant delay, his likely prolonged presentation, with reports of AMS at the rehab facility and concerns for propagation, we opted to take the patient emergently to the operating room, temporize, and plan transfer thereafter. They agreed and we planned further discussion of transfer to follow. OPERATIVE REPORT: The patient was taken to the operating room after informed consent was already obtained. The patient was planned for ICU postoperatively, given his presentation with necrotizing fasciitis of the sacral wound and his multiple comorbid states which included CAD, COPD, history of lung lobectomy (right), diabetes, and recent complex abdominal operative intervention. We discussed at length the approach to this patient and, after speaking with perishable freight inspector, we opted to proceed with monitored anesthesia care, as the patient had been appropriately been n.p.o. Moreover, given his complex respiratory status, this would avoid prolonged intubation and associated complications thereof. The patient was prepped and draped in the usual sterile fashion, in right lateral decubitus position, and was already induced for monitored anesthesia care. A timeout was called and agreed to by all in the room. Please see photographs that are within the patient's medical record for his preoperative presentation. However, in essence, there was a large area of induration and associated fluctuance, extending from the sacrum down the gluteal cleft to several centimeters from the posterior anus, without any notable communication, either by imaging or ultimate exam. There was extension to involve the left buttock as well. We proceeded with installation of local for a block towards avoiding any deeper sedation in this known pulmonary cripple. On initial incision, "dishwater" appearing fluid from the sacrum was expressed. This was within the necrotic skin and subcutaneous fat that was noted at the base of the sacral wound midline. After these cultures were obtained x2, we proceeded also to swab the left gluteal pocket as well, which on imaging was noted for a large locule of air on CT scan as well. Once these cultures were obtained, we planned to do a wide local excision after having already done the incision and drainage as listed above, which was performed with sharp scalpel incision. We widely excised an area of approximately 25 cm x 20 cm to include an irregular margin of the left buttock. There was necrotic-appearing fat, which was included within the final specimen. Please note, the skin, subcutaneous fat and associated fascia/soft tissue, and muscle was sent for pathology, and multiple soft tissue specimens were also sent for culture as well. At this time, we proceeded to resect and widely excise to healthy bleeding margins and proceeded with hemostasis, which was performed with Bovie electrocautery and suture ligature. Once we were confident that there was no remnant infectious process and the fasciitis had been widely excised, we proceeded to perform pulse lavage of the wound with 3 liters of sterile saline. This went out without any complication. Several additional areas necessitated careful hemostasis in this patient, including 2-0 Vicryl ligature and aggressive electrocautery with Bovie. The area was again extensively evaluated. A digital rectal was also performed without any induration or concerns for a palpable cord or sinus tract to which an anorectal cause could be attributed. This was likely complications related to a wound that potentially developed while the patient was convalescing post discharge. We chose to pack the wound with Betadine-soaked Kerlix and planned for a central line to be placed at the conclusion of this portion of the case, given concern for postoperative hypotension and septic shock. The patient tolerated the procedure well. There were no complications. All counts of sponges, needles, and instruments were correct at the conclusion of this operative case. I was present for the entirety of this operative intervention. The patient is to be taken to the ICU for continued care. Please note that voice recognition software was used to transcribe this note and inadvertent errors might persist in spite of review and editing. I am obliged to you for your attention. I am thankful to you for allowing me to participate with you in this care of this patient. TD: 05/20/2020 19:24 MTDJuan Carlos
== END 2020-05-10 11:55 | disposition short-term general hospital (02) | DRG 853 ==
LOC: EDUNIT# → ED 14:27 → ICU 17:30 → ED 19:46
PROVIDERS: ADMIT Surgery; ATTEND Surgery
PROC: 0KBP0ZZ Excision of Left Hip Muscle, Open Approach (ICD-10-PCS; 2020-05-08)
PROC: 0J990ZZ Drainage of Buttock Subcutaneous Tissue and Fascia, Open Approach (ICD-10-PCS; 2020-05-08)
PROC: 02HV33Z Insertion of Infusion Device into Superior Vena Cava, Percutaneous Approach (ICD-10-PCS; 2020-05-08)
PROC: 0JB70ZZ Excision of Back Subcutaneous Tissue and Fascia, Open Approach (ICD-10-PCS; principal; 2020-05-08 18:15)
DX: A41.9 Sepsis, unspecified organism (principal); M72.6 Necrotizing fasciitis; R65.21 Severe sepsis with septic shock; J44.9 Chronic obstructive pulmonary disease, unspecified; I70.90 Unspecified atherosclerosis; Z20.822 Contact with and (suspected) exposure to COVID-19; G47.33 Obstructive sleep apnea (adult) (pediatric); I10 Essential (primary) hypertension; Z90.49 Acquired absence of other specified parts of digestive tract; K59.00 Constipation, unspecified; G47.30 Sleep apnea, unspecified; L89.153 Pressure ulcer of sacral region, stage 3; Z90.2 Acquired absence of lung [part of]; I25.10 Atherosclerotic heart disease of native coronary artery without angina pectoris; Z95.5 Presence of coronary angioplasty implant and graft; I95.1 Orthostatic hypotension; Z66 Do not resuscitate; M60.88 Other myositis, other site; Z87.891 Personal history of nicotine dependence; E11.42 Type 2 diabetes mellitus with diabetic polyneuropathy; Z79.82 Long term (current) use of aspirin; Z79.899 Other long term (current) drug therapy; E66.9 Obesity, unspecified; Z68.35 Body mass index [BMI] 35.0-35.9, adult
CPT/HCPCS: 36415; 71045; 74177; 80048; 80053; 81599; 83605; 83690; 83735; 84100; 84484; 85025; 86140; 87040; 87150; 87631; 93005; 94640; 96365; 96366; 96368; 99285; 99291; A9270; J1170; J2185; J2765; J3370; J7120; Q9967; 0202U; 80202

== ENCOUNTER 2020-05-10 12:00 | Outpatient (CLI) | payer MEDICARE, OTHER | END 2020-05-10 23:59 | disposition short-term general hospital (02) | LOC: EMS 12:00 | DX: M72.6 Necrotizing fasciitis (principal) | CPT/HCPCS: A0425; A0426 ==

== ENCOUNTER 2020-09-19 12:14 | Outpatient (CLI) | payer MEDICARE, OTHER ==
[2020-09-19 12:44] LABS: BASOPHILS % (AUTO) 0.3 %; EOSINOPHILS # (AUTO) 0.1 10^3/uL (0.0-0.7); EOSINOPHILS % (AUTO) 1.7 %; HCT - HEMATOCRIT 36.6 % (42.0-52.0); HGB - HEMOGLOBIN 11.6 g/dL (14.0-18.0); LYMPHOCYTES # (AUTO) 0.9 10^3/uL (1.5-3.5); LYMPHOCYTES % (AUTO) 12.8 %; MEAN CORPUSCULAR HEMOGLOBIN 26.4 pg (27.0-31.0); MEAN CORPUSCULAR HGB CONC 31.7 g/dL (32.0-36.0); MEAN CORPUSCULAR VOLUME 83.4 fL (80.0-94.0); MEAN PLATELET VOLUME 10.3 fL (7.4-11.4); MONOCYTES # (AUTO) 0.5 10^3/uL (0.0-1.0); MONOCYTES % (AUTO) 7.2 %; NEUTROPHILS # (AUTO) 5.6 10^3/uL (1.5-6.6); NEUTROPHILS % (AUTO) 77.6 %; PLT - PLATELET COUNT 144 10^3/uL (130-450); RED BLOOD COUNT 4.39 10^6/uL (4.70-6.10); RED CELL DISTRIBUTION WIDTH 16.6 % (12.0-15.0); WHITE BLOOD COUNT 7.3 x10^3/uL (4.8-10.8)
[2020-09-19 12:57] LABS: ALBUMIN 4.1 g/dL (3.2-5.5); ALBUMIN/GLOBULIN RATIO 1.4 (1.0-2.2); BILIRUBIN,TOTAL 1.2 mg/dL (0.2-1.0); CALCIUM 9.2 mg/dL (8.5-10.3); CREATININE 0.7 mg/dL (0.6-1.2); POTASSIUM 4.5 mmol/L (3.5-5.0); TOTAL PROTEIN 7.1 g/dL (6.7-8.2)
== END 2020-09-19 12:15 | disposition home or self-care (01) ==
LOC: LAB 12:14
PROVIDERS: ATTEND Surgery
DX: R10.11 Right upper quadrant pain (principal)
CPT/HCPCS: 36415; 80053; 85025

== ENCOUNTER 2020-09-26 14:14 | Emergency (ER) | payer MEDICARE, OTHER ==
[2020-09-26 14:40] LABS: BASOPHILS % (AUTO) 0.2 %; EOSINOPHILS # (AUTO) 0.1 10^3/uL (0.0-0.7); HCT - HEMATOCRIT 34.8 % (42.0-52.0); HGB - HEMOGLOBIN 11.5 g/dL (14.0-18.0); LYMPHOCYTES # (AUTO) 0.9 10^3/uL (1.5-3.5); LYMPHOCYTES % (AUTO) 10.4 %; MEAN CORPUSCULAR HEMOGLOBIN 27.1 pg (27.0-31.0); MEAN CORPUSCULAR VOLUME 81.9 fL (80.0-94.0); MEAN PLATELET VOLUME 10.2 fL (7.4-11.4); MONOCYTES # (AUTO) 0.6 10^3/uL (0.0-1.0); MONOCYTES % (AUTO) 6.7 %; NEUTROPHILS # (AUTO) 6.6 10^3/uL (1.5-6.6); NEUTROPHILS % (AUTO) 81.2 %; PLT - PLATELET COUNT 131 10^3/uL (130-450); RED BLOOD COUNT 4.25 10^6/uL (4.70-6.10); RED CELL DISTRIBUTION WIDTH 16.5 % (12.0-15.0); WHITE BLOOD COUNT 8.2 x10^3/uL (4.8-10.8)
[2020-09-26 14:56] LABS: ALBUMIN/GLOBULIN RATIO 1.3 (1.0-2.2); CALCIUM 8.8 mg/dL (8.5-10.3); CREATININE 0.7 mg/dL (0.6-1.2); POTASSIUM 4.1 mmol/L (3.5-5.0)
[2020-09-26] MEDS ORDERED: SODIUM CHLORIDE 0.9% 1,000 ML IV STA (14:57)
--- NOTE | 2020-09-26 15:00 | ED Physician Documentation ---
History of Present Illness - Stated complaint Stated Complaint: RT SIDE ABD PX - Chief complaint Chief Complaint: Abd Pain - Additonal information Additional information: 80-year-old male who has a hx of CAD, COPD. amd HTN presents to the emergency department for evaluation of intermittent but worsening right flank pain for about 2 months. However over the last 2 weeks it is gotten progressively worse. It starts in the right upper abdomen and radiates to his right groin. This patient has never had similar. denies hematuria, vomiting. Pain is worse anytime he moves This gentleman unfortunately had necrotizing fasciitis in May of this last year for which he underwent extensive resection of the infected tissue and well as abdominal surgery for intestinal necorsis previous to that in April 2020. he was ultimately transferred to [facility] in May 2020 after the initial stabilization of the necrotizing fascitis with surgical debridment in the OR here at [facility] he has had no fevers, no vomiting, no melena or hematochezia. States he is having bowel movements daily Review of Systems Constitutional: denies: Fever, Chills Eyes: reports: Reviewed and negative Nose: reports: Reviewed and negative Throat: reports: Reviewed and negative Cardiac: reports: Reviewed and negative Respiratory: reports: Reviewed and negative GI: reports: Abdominal Pain. denies: Nausea, Vomiting, Constipation, Diarrhea : denies: Dysuria, Hesitancy, Unable to Void, Hematuria Skin: denies: Rash, Lesions PD PAST MEDICAL HISTORY - Past Medical History Past Medical History: Yes Cardiovascular: High cholesterol, [place] Respiratory: COPD, Sleep apnea, CPAP use Neuro: None, Other Endocrine/Autoimmune: None GI: None : None HEENT: Chronic hearing loss Psych: Anxiety Musculoskeletal: Osteoarthritis Derm: Psoriasis - Past Surgical History Past Surgical History: Yes General: Colonoscopy Ortho: Knee replacement Cardiovascular: Coronary stent, Lobectomy - Present Medications Home Medications: Ambulatory Orders Medication Instructions Recorded Confirmed Albuterol Sulfate [Proair Hfa 90 mcg INH PRN PRN 04/15/20 09/26/20 Inhaler] Alpha Lipoic Acid 600 mg PO DAILY 04/15/20 09/26/20 Gabapentin [Neurontin] 300 mg PO BID 04/15/20 09/26/20 Ipratropium [Atrovent] 42 mcg INH HS 04/15/20 09/26/20 Mupirocin Calcium [Mupirocin] 15 mg TOP DAILY 04/15/20 09/26/20 Nitroglycerin [Nitrostat] 1 tab SL DAILY PRN 04/15/20 09/26/20 Tamsulosin [Flomax] 0.4 mg PO DAILY 04/15/20 09/26/20 Triamcinolone 0.1% Oint [Kenalog 1 mg TOP DAILY 04/15/20 05/08/20 0.1% Oint] metroNIDAZOLE 0.75% GEL [Flagyl 2 gm TOP DAILY 04/15/20 05/08/20 Gel] polyethylene glycoL 3350 [Miralax] 17 gm PO DAILY #14 packet 04/28/20 09/26/20 LORazepam [Ativan] 0.5 mg PO PRN PRN 05/08/20 09/26/20 Aspirin EC [Ecotrin] 81 mg PO DAILY 05/09/20 09/26/20 Atorvastatin Calcium [Lipitor] 80 mg PO DAILY 05/09/20 09/26/20 Metoprolol Succinate [Toprol Xl] 25 mg PO DAILY 05/09/20 09/26/20 Oxybutynin Chloride [Ditropan Xl] 10 mg PO DAILY 05/09/20 09/26/20 Sertraline HCl [Zoloft] 100 mg PO DAILY 05/09/20 09/26/20 Omeprazole [PriLOSEC] 20 mg PO DAILY 09/26/20 09/26/20 Pregabalin [Lyrica] 75 mg PO BID PRN #15 09/26/20 - Allergies Allergies/Adverse Reactions: Allergies Allergy/AdvReac Type Severity Reaction Status Date / Time No Known Drug Allergies Allergy Verified 09/26/20 14:22 - Social History Does the pt smoke?: No Smoking Status: Never smoker Does the pt drink ETOH?: Yes ETOH Use: Wine Does the pt have substance abuse?: No - Immunizations Immunizations are current?: Yes - POLST Patient has POLST: No PD ED PE EXPANDED - General General: Alert, No acute distress - Cardiac Cardiac: Regular Rate, Radial strong equal, Pedal strong equal. No: Murmur Present - Respiratory Respiratory: Clear to ausultation mady. No: Distress, Labored - Abdomen Abdomen: Normal Bowel sounds, Tender to palpation (Right flank tenderness to palpation without guarding or rebound.), Surgical scars (Well-healed midline vertical scar). No: Rebound, Guarding - Extremities Extremities: Other (Large wound right buttock covered with dressing.). No: Normal, Deformity - Neuro Neuro: Alert and Oriented X 3, CNII-XII intact - GCS Eye Opening: Spontaneous Motor: Obeys Commands Verbal: Oriented Total: 15 Results - Vitals Vitals: Vital Signs - 24 hr 09/26/20 09/26/20 09/26/20 14:18 14:39 16:31 Temperature 36.4 C L Heart Rate 59 L 56 L 63 Respiratory 18 20 16 Rate Blood Pressure 121/67 120/75 145/81 H O2 Saturation 97 97 96 09/26/20 16:48 Temperature 36.6 C Heart Rate 64 Respiratory 16 Rate Blood Pressure 145/81 H O2 Saturation 98 Oxygen O2 Source Room air - Labs Labs: Laboratory Tests 09/26/20 09/26/20 09/26/20 14:34 14:34 14:34 WBC 8.2 RBC 4.25 L Hgb 11.5 L Hct 34.8 L MCV 81.9 MCH 27.1 MCHC 33.0 RDW 16.5 H Plt Count 131 MPV 10.2 Neut # (Auto) 6.6 Lymph # (Auto) 0.9 L Mcintosh # (Auto) 0.6 Eos # (Auto) 0.1 Baso # (Auto) 0.0 Absolute Nucleated RBC 0.00 Nucleated RBC % 0.0 Sodium 130 L Potassium 4.1 Chloride 97 L Carbon Dioxide 22 Anion Gap 11.0 BUN 13 Creatinine 0.7 Estimated GFR (MDRD) 108 Glucose 118 H Lactic Acid 1.9 Calcium 8.8 Total Bilirubin 1.0 AST 16 ALT 11 Alkaline Phosphatase 92 Total Protein 7.0 Albumin 4.0 Globulin 3.0 Albumin/Globulin Ratio 1.3 Lipase 17 L Urine Color Urine Clarity Urine pH Ur Specific [place] Urine Protein Urine Glucose (UA) Urine Ketones Urine Occult Blood Urine Nitrite Urine Bilirubin Urine Urobilinogen Ur Leukocyte Esterase Ur Microscopic Review Urine Culture Comments 09/26/20 16:18 WBC RBC Hgb Hct MCV MCH MCHC RDW Plt Count MPV Neut # (Auto) Lymph # (Auto) Mcintosh # (Auto) Eos # (Auto) Baso # (Auto) Absolute Nucleated RBC Nucleated RBC % Sodium Potassium Chloride Carbon Dioxide Anion Gap BUN Creatinine Estimated GFR (MDRD) Glucose Lactic Acid Calcium Total Bilirubin AST ALT Alkaline Phosphatase Total Protein Albumin Globulin Albumin/Globulin Ratio Lipase Urine Color YELLOW Urine Clarity CLEAR Urine pH 6.0 Ur Specific [place] <=1.005 Urine Protein NEGATIVE Urine Glucose (UA) NEGATIVE Urine Ketones NEGATIVE Urine Occult Blood NEGATIVE Urine Nitrite NEGATIVE Urine Bilirubin NEGATIVE Urine Urobilinogen 0.2 (NORMAL) Ur Leukocyte Esterase NEGATIVE Ur Microscopic Review NOT INDICATED Urine Culture Comments NOT INDICATED - Rads (name of study) CT abd Radiology: Final report received (CT abdomen and pelvis without acute abnormalities. Stable postoperative changes from partial small bowel resection with multiple fluid-filled loops of small bowel possibly related enteritis. No evidence for bowel obstruction. Stable appearance of right greater than left bibasilar atelectasis. ) PD MEDICAL DECISION MAKING - ED course Complexity details: reviewed results, re-evaluated patient, d/w patient, d/w family, d/w etl consultant (Mic Williamson MD) ED course: 80-year-old male presents the emergency department for evaluation of intermittent but worsening right flank pain. This is in the setting of a small bowel resection secondary to a necrotizing infection as well as then a subsequent surgery for necrotizing fasciitis. Screening labs today do not reveal any significant worrisome abnormality. His lactate is not elevated. The CT of the abdomen suggests a possible early enteritis but no findings of bowel obstruction. This case was discussed with Dr. Williamson who did come to the bedside and evaluate the patient. This time would not recommend admission. He does request that the patient be started on Lyrica 75 mg twice daily. Close follow-up with him in office. Emergent return precautions were discussed for worsening symptoms, fevers uncontrolled vomiting or pain despite the Lyrica. Departure - Departure Disposition: 01 Home, Self Care Clinical Impression: Right sided abdominal pain Condition: Stable Record reviewed to determine appropriate education?: Yes Follow-Up: Pranav Williamson MD [Provider Admit Priv/Credential] - Prescriptions: Pregabalin [Lyrica] 75 mg PO BID PRN #15 PRN Reason: Pain Comments: Jonathan you are seen in the ER today for intermittent but worsening right-sided abdominal pain. Your screening labs do not show any worrisome abnormalities. The CT of your abdomen showed that your small intestine is somewhat filled with fluid but there is no bowel obstruction. Dr. Williamson did see you at the bedside as well. At this time we would like to discharge her with a prescription for Lyrica which is a pain medication. You may take it twice a day as needed for pain. If despite taking this medication your pain continues, or you develop fevers have vomiting or any black or bloody stools then please return immediately to the ER. Please call the surgery clinic and schedule follow-up with Dr. Williamson within the next week.
[2020-09-26] MEDS ORDERED: IOVERSOL 320 100 ML VIAL IVP ONE ×2 (15:01→15:30)
--- NOTE | 2020-09-26 16:15 | CT Report ---
PROCEDURE: Abdomen/Pelvis W INDICATIONS: right flank pain; ? urolithiasis CONTRAST: IV CONTRAST: Optiray 320 ml: 100 PO CONTRAST: *NO PO CONTRAST TECHNIQUE: After the administration of weight appropriate dose of intravenous contrast, 5 mm thick sections acqu ired from the diaphragms to the symphysis. 5 mm thick coronal and sagittal reformats were acquired. For radiation dose reduction, the following was used: automated exposure control, adjustment of mA and/or kV according to patient size. COMPARISON: 05/08/2020. FINDINGS: Image quality: Excellent. ABDOMEN: Lung bases: Bibasilar atelectasis. Calcified pleural plaques of the right lung base are again noted a nd compatible with prior asbestosis exposure. Heart size is normal. Solid organs: Persistent splenomegaly without focal splenic mass. Liver is normal in size and enhanc ement. Gallbladder is unremarkable Biliary system is non dilated. Pancreas enhances homogeneously. No peripancreatic inflammation. No peripancreatic fluid collection. No adrenal nodules. Kidneys de monstrate normal size and enhancement, without hydronephrosis. No evidence for urolithiasis on this contrasted CT. Peritoneum and bowel: Stable postsurgical changes from partial small bowel resection with anastomoti c suture line noted in the mid abdomen. There is fluid filled small bowel at the anastomosis segment demonstrating distention. However, there are no dilated loops of small bowel noted proximal to the an astomosis. Fluid-filled small bowel extends distal to the anastomosis. Visualized segments of the col on are unremarkable. No free fluid or air. Nodes and vessels: No retroperitoneal or mesenteric adenopathy by size criteria. Aorta and inferior vena cava are normal in size. Apical scarring calcifications of the abdominal aorta without aneurysm al dilatation. Miscellaneous: No ventral hernias. Postoperative changes of the midline abdomen from prior vertical incision. PELVIS: Genitourinary: Bladder wall thickness is normal. Miscellaneous: No inguinal hernias or adenopathy. Mild skin thickening and likely scarring from pre viously described decubitus ulcer in the sacrococcygeal region. Bones: No suspicious bony lesions. No acute vertebral body compression fractures. IMPRESSION: 1. CT abdomen and pelvis without acute abnormalities. 2. No evidence for urolithiasis or obstructive uropathy. However, small uroliths may be obscured by p resence of contrast enhanced renal parenchyma. 3. Stable postoperative changes from partial small bowel resection with multiple fluid-filled loops o f small bowel possibly related to enteritis. No evidence for bowel obstruction. 4. Stable appearance of right greater than left bibasilar atelectasis and calcified right pleural yoselin ques. Findings are compatible with prior diagnosis exposure. 5. Atherosclerosis. 6. Persistent splenomegaly. Reviewed by: Ben Rodriguez MD on 09/26/2020 4:13 PM PDT Approved by: Ben Rodriguez MD on 09/26/2020 4:13 PM PDT Station ID: [id number]
[2020-09-26 16:26] LABS: BILIRUBIN,URINE NEGATIVE (NEGATIVE); CLARITY,URINE CLEAR (CLEAR); GLUCOSE, URINE (UA) NEGATIVE (NEGATIVE); KETONES,URINE (UA) NEGATIVE (NEGATIVE); LEUKOCYTE ESTERASE, URINE NEGATIVE (NEGATIVE); NITRITE,URINE NEGATIVE (NEGATIVE); OCCULT BLOOD,URINE NEGATIVE (NEGATIVE); PROTEIN,URINE NEGATIVE (NEGATIVE); UROBILINOGEN,URINE 0.2 (NORMAL) E.U./dL (NORMAL)
[2020-09-26 16:31] VITALS: BP 145/81
[2020-09-26] MEDS ORDERED: HYDROmorphone 0.5 MG/0.5 ML SYRINGE IVP STA (16:48)
[2020-09-26] MEDS ORDERED: PREGABALIN 25 MG CAPSULE PO STA (17:34)
== END 2020-09-26 18:16 | disposition home or self-care (01) ==
LOC: ED 14:14
DX: R10.9 Unspecified abdominal pain (principal); I25.10 Atherosclerotic heart disease of native coronary artery without angina pectoris; I10 Essential (primary) hypertension; Z95.5 Presence of coronary angioplasty implant and graft
CPT/HCPCS: 36415; 74177; 80053; 81003; 83605; 83690; 85025; 96374; 99284; A9270; J1170; Q9967; 81001; 87086

== ENCOUNTER 2020-10-04 08:47 | Outpatient (CLI) | payer MEDICARE, OTHER ==
[2020-10-04] MEDS ORDERED: GADOBUTROL 15 MMOL/15 ML VIAL ONE (09:22)
--- NOTE | 2020-10-04 14:28 | MRI Report ---
PROCEDURE: Abdomen W/WO INDICATIONS: RUQ ABDOMINAL PAIN,CHRONIC FLANK/ABD/PELVIC PAIN CONTRAST: IV CONTRAST: Gadavist ml: 11 TECHNIQUE: Coronal ultra fast SE, axial 2D spoiled GE in- and [id number]; axial breath-hold T2 fast SE. Dynam ic axial ultra fast GE during the administration of contrast; post-contrast coronal ultra fast GE or 2D spoiled GE with fat saturation from the hepatic dome to the iliac crests. Restricted diffusion jerri ghted imaging and ADC may be performed. COMPARISON: Same day MRI pelvis. CT abdomen and pelvis 09/26/2020, 05/08/2020. FINDINGS: Image quality: Excellent. Lung bases: No basal pleural effusions. Heart size is normal. Solid organs: Liver is prominent. No focal lesion. Gallbladder is unremarkable. Biliary system is n on dilated. Pancreas is normal in morphology. Mild splenomegaly measuring 16.7 cm. No adrenal nodule s. Both kidneys demonstrate normal size and enhancement, without hydronephrosis. Nodes and vessels: No retroperitoneal or mesenteric adenopathy by size criteria. Aorta and inferior vena cava are normal in size. Bowel and peritoneum: Unenhanced bowel loops are normal in caliber. No free fluid. Bones and soft tissues: No ventral hernias. Ventral abdominal wall scar. Bone marrow is normal in o verall signal. IMPRESSION: 1. No acute inflammatory process is identified. No free fluid. 2. Small bowel anastomosis in the left abdomen. 3. Splenomegaly. Reviewed by: Nolan Alvarado MD on 10/04/2020 2:26 PM PDT Approved by: Nolan Alvarado MD on 10/04/2020 2:26 PM PDT Station ID: [id number]
--- NOTE | 2020-10-04 14:42 | MRI Report ---
PROCEDURE: Pelvis W/WO INDICATIONS: RUQ ABDOMINAL PAIN, CHRONIC FLANK/ABD/PELVIC PAIN CONTRAST: IV CONTRAST: Gadavist ml: 11 TECHNIQUE: Coronal ultra fast SE, sagittal breath-hold T2 FSE; axial T1 FSE with and without fat saturation thro ugh the pelvis. Optional long- and short-axis uterine nonbreath-hold T2 FSE through the uterus. Sag ittal or axial dynamic ultra fast GE during administration of contrast. Post-contrast axial or coron al ultra fast GE / 2-D spoiled GE with fat saturation from the iliac crests to the symphysis. COMPARISON: Same day MRI abdomen. CT abdomen and pelvis 09/26/2020, 05/08/2020. FINDINGS: Image quality: Excellent. Urinary system: Bladder is unremarkable. There is focal T2 hypointense signal in the left mid prostat e gland peripheral zone measuring 1 cm, (601/6). No restricted diffusion sequences of the pelvis were acquired. This limits evaluation of the prostate gland. Nodes and vessels: No pelvic or inguinal adenopathy by size criteria. Iliac vessels are normal in s ize. Bowel and peritoneum: No pathologic free pelvic fluid. Small bowel anastomosis in the inferior left abdomen is seen. There is persistent skin thickening and enhancement involving the left posterior paramedian subcutane ous tissues and extending into the left buttocks. On the prior CT there is soft tissue thickening whi ch was improved compared to May 2020. This could be the sequelae of prior bedsore. There is mild enhancement surrounding the coccyx. Soft tissues: No inguinal hernias. No findings of pelvic floor incompetence in the absence of provo cation. Bones: No significant abnormal signal within the coccyx. No focal lesion seen. IMPRESSION: 1. Persistent skin thickening and enhancement in the left posterior paramedian subcutaneous tissues l ikely related to prior treated decubitus ulcer. No loculated fluid collection. 2. No free fluid in the pelvis. 3. Focal T2 hypointense signal in the left prostate mid gland peripheral zone is suspicious for prost ate cancer. However, this is not well evaluated on this exam. MRI prostate exam with restricted diffu jassi sequences and small [id number] could be obtained for further characterization. Biopsy could a lso be performed if clinically indicated. Reviewed by: Nolan Alvarado MD on 10/04/2020 2:41 PM PDT Approved by: Nolan Alvarado MD on 10/04/2020 2:41 PM PDT Station ID: [id number]
[2020-10-04] MEDS ORDERED: GADOBUTROL 15 MMOL/15 ML VIAL IVP ONE (14:56)
== END 2020-10-04 08:48 | disposition home or self-care (01) ==
LOC: DI 08:47
PROVIDERS: ATTEND Surgery
DX: R10.11 Right upper quadrant pain (principal); N42.9 Disorder of prostate, unspecified; R16.1 Splenomegaly, not elsewhere classified
CPT/HCPCS: 72197; 74183; A9585

== ENCOUNTER 2020-10-26 13:07 | Outpatient (CLI) | payer MEDICARE, OTHER ==
--- NOTE | 2020-10-27 11:18 | Ultrasound Report ---
PROCEDURE: Head or Neck Soft Tissue INDICATIONS: LUMP ON RIGHT CHECK/MANDIBILAR AREA TECHNIQUE: Real time scanning was performed of the neck region of interest, with image documentation . COMPARISON: CT facial bones 10/26/2020. FINDINGS: Ultrasound evaluation in right neck in the area of palpable abnormality demonstrates the parotid glan d which appears unremarkable sonographically. No discrete subjacent solid or cystic mass identified. IMPRESSION: 1. No discrete mass identified in the area of patient's palpable abnormality. Recommend clinical foll ow-up and if clinical concern persists, further evaluation may be obtained with MRI. Reviewed by: Bal Smith MD on 10/27/2020 11:16 AM PDT Approved by: Bal Smith MD on 10/27/2020 11:16 AM PDT Station ID: [id number]
== END 2020-10-26 13:08 | disposition home or self-care (01) ==
LOC: DI 13:07
PROVIDERS: ATTEND Physician Assistant Medical
DX: R22.9 Localized swelling, mass and lump, unspecified (principal)

== ENCOUNTER 2020-10-26 14:49 | Outpatient (CLI) | payer MEDICARE, OTHER | END 2020-10-26 14:50 | disposition critical access hospital (66) | LOC: EMS 14:49 | DX: R51.9 Headache, unspecified (principal); S09.90XA Unspecified injury of head, initial encounter; R22.0 Localized swelling, mass and lump, head; W10.9XXA Fall (on) (from) unspecified stairs and steps, initial encounter; Y93.89 Activity, other specified; Y92.009 Unspecified place in unspecified non-institutional (private) residence as the place of occurrence of the external cause | CPT/HCPCS: A0425; A0429 ==

== ENCOUNTER 2020-10-26 15:08 | Emergency (ER) | payer MEDICARE, OTHER ==
--- NOTE | 2020-10-26 15:24 | ED Physician Documentation ---
PD HPI HEAD INJURY - Stated complaint Stated Complaint: GLF - History obtained from History obtained from: Patient, EMS - Additional information Additional information: 80-year-old gentleman with history of coronary disease, COPD, hypertension who in April of this year had a small bowel obstruction requiring exploratory laparotomy with small bowel resection, later that month developed necrotizing fasciitis of the buttock and was admitted here. Today reportedly was going up or down stairs with a walker and fell suffering a facial and head injury. Reportedly has become confused in route. He is not anticoagulated. Review of Systems Unable to obtain: Confused PD PAST MEDICAL HISTORY - Past Medical History Cardiovascular: High cholesterol, [place] Respiratory: COPD, Sleep apnea, CPAP use Neuro: None, Other Endocrine/Autoimmune: None GI: None : None HEENT: Chronic hearing loss Psych: Anxiety Musculoskeletal: Osteoarthritis Derm: Psoriasis - Past Surgical History Past Surgical History: Yes General: Colonoscopy Ortho: Knee replacement Cardiovascular: Coronary stent, Lobectomy - Present Medications Home Medications: Ambulatory Orders Medication Instructions Recorded Confirmed Albuterol Sulfate [Proair Hfa 90 mcg INH PRN PRN 04/15/20 09/26/20 Inhaler] Alpha Lipoic Acid 600 mg PO DAILY 04/15/20 09/26/20 Gabapentin [Neurontin] 300 mg PO BID 04/15/20 09/26/20 Ipratropium [Atrovent] 42 mcg INH HS 04/15/20 09/26/20 Mupirocin Calcium [Mupirocin] 15 mg TOP DAILY 04/15/20 09/26/20 Nitroglycerin [Nitrostat] 1 tab SL DAILY PRN 04/15/20 09/26/20 Tamsulosin [Flomax] 0.4 mg PO DAILY 04/15/20 09/26/20 Triamcinolone 0.1% Oint [Kenalog 1 mg TOP DAILY 04/15/20 05/08/20 0.1% Oint] metroNIDAZOLE 0.75% GEL [Flagyl 2 gm TOP DAILY 04/15/20 05/08/20 Gel] polyethylene glycoL 3350 [Miralax] 17 gm PO DAILY #14 packet 04/28/20 09/26/20 LORazepam [Ativan] 0.5 mg PO PRN PRN 05/08/20 09/26/20 Aspirin EC [Ecotrin] 81 mg PO DAILY 05/09/20 09/26/20 Atorvastatin Calcium [Lipitor] 80 mg PO DAILY 05/09/20 09/26/20 Metoprolol Succinate [Toprol Xl] 25 mg PO DAILY 05/09/20 09/26/20 Oxybutynin Chloride [Ditropan Xl] 10 mg PO DAILY 05/09/20 09/26/20 Sertraline HCl [Zoloft] 100 mg PO DAILY 05/09/20 09/26/20 - Allergies Allergies/Adverse Reactions: Allergies Allergy/AdvReac Type Severity Reaction Status Date / Time No Known Drug Allergies Allergy Verified 09/26/20 14:22 - Social History Does the pt smoke?: No Smoking Status: Never smoker Does the pt drink ETOH?: Yes Does the pt have substance abuse?: No - Immunizations Immunizations are current?: Yes - POLST Patient has POLST: No PD ED PE NORMAL - Vitals Vital signs reviewed: Yes - General General: Other (He is alert and oriented to person and place but not time or events) - HEENT HEENT: EOMI, Other (There is a significant right-sided periorbital hematoma, but I am able to open the lids, the globe is soft and pupil is reactive. He does have a lateral subconjunctival hemorrhage.) - Neck Neck: Supple, no meningeal sign, No bony TTP - Cardiac Cardiac: RRR, No murmur - Respiratory Respiratory: No respiratory distress, Clear bilaterally - Abdomen Abdomen: Soft, Non tender - Back Back: No CVA TTP, No spinal TTP - Derm Derm: Normal color, Warm and dry - Extremities Extremities: No deformity, No tenderness to palpate, Normal ROM s pain, No edema, No calf tenderness / cord - Neuro Neuro: No motor deficit, No sensory deficit, Normal speech Eye Opening: Spontaneous Motor: Obeys Commands Verbal: Confused GCS Score: 14 - Psych Psych: Normal mood, Normal affect Results - Vitals Vitals: Vital Signs - 24 hr 10/26/20 10/26/20 15:10 16:35 Temperature 38.2 C H Heart Rate 85 83 Respiratory 21 20 Rate Blood Pressure 153/82 H 143/81 H O2 Saturation 98 100 Oxygen O2 Source Nasal cannula - EKG (time done) 1512 Rate: Rate (enter#) (83) Rhythm: NSR, LAE [place]: Normal Intervals: Prolonged GA, Other (LAFB) Ischemia: Non specific changes. No: ST elevation c/w ischemia, ST depression Computer interpretation: Agree with computer - Labs Labs: Laboratory Tests 10/26/20 10/26/20 10/26/20 15:30 15:30 15:33 WBC 11.0 H RBC 4.52 L Hgb 12.2 L Hct 38.2 L MCV 84.5 MCH 27.0 MCHC 31.9 L RDW 15.5 H Plt Count 118 L MPV 11.0 Neut # (Auto) 9.6 H Lymph # (Auto) 0.4 L [place] # (Auto) 0.9 Eos # (Auto) 0.0 Baso # (Auto) 0.0 Absolute Nucleated RBC 0.00 Nucleated RBC % 0.0 PT INR Sodium 134 L Potassium 3.9 Chloride 97 L Carbon Dioxide 25 Anion Gap 12.0 BUN 17 Creatinine 0.8 Estimated GFR (MDRD) 93 Glucose 147 H Lactic Acid 1.9 Calcium 8.7 Total Bilirubin 1.1 H AST 20 ALT 14 Alkaline Phosphatase 90 Total Protein 7.4 Albumin 4.1 Globulin 3.3 Albumin/Globulin Ratio 1.2 10/26/20 16:06 WBC RBC Hgb Hct MCV MCH MCHC RDW Plt Count MPV Neut # (Auto) Lymph # (Auto) [place] # (Auto) Eos # (Auto) Baso # (Auto) Absolute Nucleated RBC Nucleated RBC % PT 14.7 H INR 1.3 H Sodium Potassium Chloride Carbon Dioxide Anion Gap BUN Creatinine Estimated GFR (MDRD) Glucose Lactic Acid Calcium Total Bilirubin AST ALT Alkaline Phosphatase Total Protein Albumin Globulin Albumin/Globulin Ratio - Rads (name of study) CT Head/face/CSpine Radiology: EMP read contemporaneously (Initial read as no trauma, discussed by phone with Dr Kessler and confirms L parietal subdural) 1v chest Radiology: EMP read contemporaneously (RLL pna?) PD MEDICAL DECISION MAKING - ED course ED course: 80-year-old gentleman, not anticoagulated after ground-level fall with progressive confusion. Attended to and CT of the head, neck, and facial areas done and notable for a contrecoup subdural hemorrhage noted by me at approximately 3:45 PM. This was discussed by phone with his who prefers him to go to [facility] for trauma treatment. Of note he is also febrile here so a septic work-up was done as well. [facility] was called at about 3:50 PM for transfer. We will rapidly notify the [facility] was full and could not acceptance patient. Accepted to [facility] by Dr. Shaw at 4:42 PM. Possible pneumonia on x-ray and given the fever will be cultured up and given R ocephin and Zithromax. Of note the initial CT of the head was read as negative but clarified with Dr. Kessler that the diagnosis of left parietal subdural is correct and he will addend the chart. - Critical Care Time(min): 40 Time Includes: Direct patient care, Review records, Reassess patient, Document care, Coordinate care, Medical consult, Family consult for tx dec ( at bedside) Data interpretation: Labs, Pulse ox Procedures included in critical care time: Peripheral IV Procedures excluded from critical care time: EKG Departure - Departure Disposition: 02 Transfer Acute Care Hosp Clinical Impression: Subdural hemorrhage, Fever, Pneumonia Condition: Critical
[2020-10-26 15:43] LABS: BASOPHILS % (AUTO) 0.2 %; EOSINOPHILS % (AUTO) 0.2 %; HCT - HEMATOCRIT 38.2 % (42.0-52.0); HGB - HEMOGLOBIN 12.2 g/dL (14.0-18.0); LYMPHOCYTES # (AUTO) 0.4 10^3/uL (1.5-3.5); LYMPHOCYTES % (AUTO) 3.9 %; MEAN CORPUSCULAR HGB CONC 31.9 g/dL (32.0-36.0); MEAN CORPUSCULAR VOLUME 84.5 fL (80.0-94.0); MONOCYTES # (AUTO) 0.9 10^3/uL (0.0-1.0); MONOCYTES % (AUTO) 8.2 %; NEUTROPHILS # (AUTO) 9.6 10^3/uL (1.5-6.6); NEUTROPHILS % (AUTO) 87.1 %; PLT - PLATELET COUNT 118 10^3/uL (130-450); RED BLOOD COUNT 4.52 10^6/uL (4.70-6.10); RED CELL DISTRIBUTION WIDTH 15.5 % (12.0-15.0)
--- NOTE | 2020-10-26 15:49 | XRAY Report ---
PROCEDURE: Chest 1 View X-Ray INDICATIONS: fever TECHNIQUE: One view of the chest was acquired. COMPARISON: 04/26/2020 FINDINGS: Surgical changes and devices: Right-sided central venous catheter and nasogastric feeding tube are st able. Surgical clips project on the right hilum are stable. Lungs and pleura: Small right-sided pleural effusion. Increased desiccation noted in the right lung b ase. Linear opacity noted in left lung base which likely represents atelectasis. Mediastinum: Mediastinal contours appear normal. Heart size is normal. Bones and chest wall: No suspicious bony lesions. Overlying soft tissues appear unremarkable. IMPRESSION: Increased right basilar opacification which could represent parenchymal scarring, atelectasis or pneu monia. Reviewed by: Leena Martinez MD, PhD on 10/26/2020 3:47 PM PDT Approved by: Leena Martinez MD, PhD on 10/26/2020 3:47 PM PDT Station ID: [id number]
[2020-10-26 15:53] LABS: ALBUMIN 4.1 g/dL (3.2-5.5); ALBUMIN/GLOBULIN RATIO 1.2 (1.0-2.2); BILIRUBIN,TOTAL 1.1 mg/dL (0.2-1.0); CALCIUM 8.7 mg/dL (8.5-10.3); CREATININE 0.8 mg/dL (0.6-1.2); POTASSIUM 3.9 mmol/L (3.5-5.0); TOTAL PROTEIN 7.4 g/dL (6.7-8.2)
[2020-10-26] MEDS ORDERED: ONDANSETRON 4 MG/2 ML VIAL IVP STA (15:54)
--- NOTE | 2020-10-26 16:01 | CT Report ---
PROCEDURE: CERVICAL SPINE WO INDICATIONS: head injury TECHNIQUE: Noncontrast 3 mm thick sections acquired from the skull base to the T4 level. Sagittal and coronal r eformats were then constructed. For radiation dose reduction, the following was used: automated exp osure control, adjustment of mA and/or kV according to patient size. COMPARISON: Correlation is made with the accompanying head CT and maxillofacial CT, 10/26/2020. FINDINGS: Image quality: This study is limited by quantum mottle artifact. Bones: No fractures or dislocations. Visualized superior ribs are intact. Degenerative changes are seen throughout, with moderate disc space narrowing at C4-C5, with at least moderate disc space narrowing at C5-C6, C6-C7, and C7-T1. Bridging anterior osteophytes are seen at l east C3-C7. Note is made of complete opacification of the right maxillary sinus. Soft tissues: Prevertebral soft tissues are normal in thickness. No paravertebral hematomas. No ap ical pneumothoraces. Atherosclerotic calcification is seen. IMPRESSION: No acute fractures can be seen. Relatively prominent degenerative changes can be seen throughout. Reviewed by: Efra Kessler MD on 10/26/2020 3:00 PM BONNIE Approved by: Efra Kessler MD on 10/26/2020 3:00 PM BONNIE Station ID: [id number]
--- NOTE | 2020-10-26 16:04 | CT Report ---
PROCEDURE: MAXILLOFACIAL WO INDICATIONS: head injury TECHNIQUE: Noncontrast 1.5 mm thick axial images acquired from the mandible through the frontal sinuses, with co zohaib and sagittal reformatting. For radiation dose reduction, the following was used: automated ex posure control, adjustment of mA and/or kV according to patient size. COMPARISON: Correlation is made with the accompanying head CT and cervical spine CT examinations, . FINDINGS: Image quality: Excellent. Bones and teeth: Orbital aiken are intact. Sinus aiken show no fracture or deformity. Nasal bones and septum are intact. Visualized portions of the mandible demonstrate no fractures or subluxation. Zygomatic arches are intact. Pterygoid plates are intact. Visualized portions of the skull base an d auditory canals are intact. Sinuses: There is an air blood level seen within the right maxillary sinus. Mild mucosal thickening i s seen within the ethmoid air cells and within the inferomedial right frontal sinus. Soft tissues: Prominent right paravertebral soft tissue swelling is seen. Vascular: Visualized vascular structures appear normal in the absence of contrast. Bony vascular fo ramina and canals are intact. IMPRESSION: There is prominent right periorbital soft tissue swelling seen, without an associated fracture seen. There is an air-fluid level seen within the right maxillary sinus, with milder mucosal thickening see n elsewhere within the paranasal sinuses. Reviewed by: Efra Kessler MD on 10/26/2020 3:03 PM BONNIE Approved by: Efra Kessler MD on 10/26/2020 3:03 PM BONNIE Station ID: [id number]
--- NOTE | 2020-10-26 16:06 | CT Report ---
PROCEDURE: HEAD WO INDICATIONS: head injury TECHNIQUE: Noncontrast 4.5 mm thick angled axial sections acquired from the foramen magnum to the vertex. For r adiation dose reduction, the following was used: automated exposure control, adjustment of mA and/or kV according to patient size. COMPARISON: Correlation is made with the accompanying cervical spine CT and maxillofacial CT, 021. FINDINGS: Image quality: There is streak artifact seen through the skull base. CSF spaces: Basal cisterns are patent. No extra-axial fluid collections. Ventricles are normal in size and shape. Brain: No midline shift. No intracranial masses or hemorrhage. [place]-white matter interface is norm al. Skull and face: Relatively prominent right periorbital soft tissue swelling is seen. There is also a scalp hematoma seen involving the right temporal region. Sinuses: There is an air blood level seen within the right maxillary sinus. Milder mucosal thickenin g is seen within the ethmoid air cells and within the inferomedial right frontal sinus. No significan t abnormal fluid can be seen within the mastoid air cells or within the middle ear cavities. IMPRESSION: No intracranial hemorrhage is seen. No significant intracranial abnormality is seen. There is right periorbital soft tissue swelling and a right temporal scalp hematoma seen. No underlyi ng fractures are detected. There is an air blood level seen within the right maxillary sinus. Reviewed by: Efra Kessler MD on 10/26/2020 3:05 PM BONNIE Approved by: Efra Kessler MD on 10/26/2020 3:05 PM BONNIE Station ID: [id number]
[2020-10-26 16:35] VITALS: BP 143/81
[2020-10-26 16:36] LABS: INR 1.3 (0.8-1.2); PT - PROTHROMBIN TIME 14.7 secs (9.9-12.6)
[2020-10-26] MEDS ORDERED: cefTRIAXone 1 GM in SODIUM CHLORIDE 0.9% MINIBAG 100 ML IV STA (16:36)
[2020-10-26] MEDS ORDERED: AZITHROMYCIN INJ 500 MG in SODIUM CHLORIDE 0.9% 250 ML IV STA (16:36)
[2020-10-26] MEDS ORDERED: cefTRIAXone 1 GM VIAL ONE (16:59)
[2020-10-26 17:01] LABS: BILIRUBIN,URINE NEGATIVE (NEGATIVE); GLUCOSE, URINE (UA) NEGATIVE (NEGATIVE); KETONES,URINE (UA) TRACE mg/dL (NEGATIVE); LEUKOCYTE ESTERASE, URINE NEGATIVE (NEGATIVE); NITRITE,URINE NEGATIVE (NEGATIVE); OCCULT BLOOD,URINE NEGATIVE (NEGATIVE); PROTEIN,URINE NEGATIVE (NEGATIVE); UROBILINOGEN,URINE 0.2 (NORMAL) E.U./dL (NORMAL)
[2020-10-26 17:06] LABS: BACTERIA,URINE None Seen /HPF (None Seen); CLARITY,URINE CLEAR (CLEAR); RBC,URINE 0-5 /HPF (0-5); SQUAMOUS EPITHELIAL CELL,UR RARE Squamous (<= Few); WBC,URINE 0-3 /HPF (0-3)
[2020-10-26 17:07] LABS: MUCUS,URINE Marked Strands
[2020-10-26 18:04] LABS: B. PARAPERTUSSIS- RESP PCR PAN NOT DETECTED; B. PERTUSSIS- RESP PCR PANEL NOT DETECTED; C. PNEUMONIAE- RESP PCR PANEL NOT DETECTED; CORONAVIRUS 229E-RESP PCR NOT DETECTED; CORONAVIRUS HKU1-RESP PCR NOT DETECTED; CORONAVIRUS NL63-RESP PCR NOT DETECTED; CORONAVIRUS OC43-RESP PCR NOT DETECTED; HUMAN METAPNEUMOVIRUS NOT DETECTED; INFLUENZA A- RESP PCR PANEL NOT DETECTED; INFLUENZA B - RESP PCR PANEL NOT DETECTED; M. PNEUMONIAE- RESP PCR PANEL NOT DETECTED; PARAINFLUENZA VIRUS 1 NOT DETECTED; PARAINFLUENZA VIRUS 2 NOT DETECTED; PARAINFLUENZA VIRUS 3 NOT DETECTED; PARAINFLUENZA VIRUS 4 NOT DETECTED; RHINOVIRUS/ENTEROVIRUS NOT DETECTED; RSV- RESP PCR PANEL NOT DETECTED; SARS-CoV-2 -RESP PCR PANEL NOT DETECTED
== END 2020-10-26 17:35 | disposition short-term general hospital (02) ==
LOC: EDUNIT# → ED 15:08
DX: S00.11XA Contusion of right eyelid and periocular area, initial encounter (principal); H11.30 Conjunctival hemorrhage, unspecified eye; S06.5X0A Traumatic subdural hemorrhage without loss of consciousness, initial encounter; W10.9XXA Fall (on) (from) unspecified stairs and steps, initial encounter; Y93.89 Activity, other specified; Y92.009 Unspecified place in unspecified non-institutional (private) residence as the place of occurrence of the external cause; J18.9 Pneumonia, unspecified organism; Z20.822 Contact with and (suspected) exposure to COVID-19; R22.9 Localized swelling, mass and lump, unspecified
CPT/HCPCS: 0202U; 36415; 80053; 81001; 83605; 85025; 85610; 87040; 87086; 96374; 96375; 99291

== ENCOUNTER 2020-11-10 12:06 | Outpatient (CLI) | payer MEDICARE, OTHER | END 2020-11-10 12:07 | disposition critical access hospital (66) | LOC: EMS 12:06 | DX: R47.1 Dysarthria and anarthria (principal) | CPT/HCPCS: A0425; A0429 ==

== ENCOUNTER 2020-11-10 12:22 | Emergency (ER) | payer MEDICARE, OTHER ==
--- NOTE | 2020-11-10 12:36 | ED Physician Documentation ---
PD HPI FOCAL NEURO - Stated complaint Stated Complaint: APHASIA - History obtained from History obtained from: Patient, EMS - History of Present Illness Timing - onset: How many hours ago (6) Timing - duration: Hours (6) Weakness: No: Face, Arm, Hand, Leg, Foot, Right, Left Numbness: No: Face, Arm, Hand, Leg, Foot, Right, Left Contributing factors: negative: Anticoagulated Baseline status: positive: A&OX3, ambulatory, indep - Additional information Additional information: Patient is an 80-year-old male who presents to the emergency department today with expressive aphasia. Last known normal was about 630 this morning. This was about 6 hours prior to arrival. He was recently hospitalized in [place] for a subdural hemorrhage. states that he seemed normal at 630 this morning. When she saw him again at 930 he was unable to speak. Patient is unable to give any history other than to say okay Review of Systems Unable to obtain: AMS PD PAST MEDICAL HISTORY - Past Medical History Past Medical History: Yes Cardiovascular: High cholesterol, [place] Respiratory: COPD, Sleep apnea, CPAP use Neuro: None, Other Endocrine/Autoimmune: None GI: None : None HEENT: Chronic hearing loss Psych: Anxiety Musculoskeletal: Osteoarthritis Derm: Psoriasis - Past Surgical History Past Surgical History: Yes General: Colonoscopy Ortho: Knee replacement Cardiovascular: Coronary stent, Lobectomy - Present Medications Home Medications: Ambulatory Orders Medication Instructions Recorded Confirmed Tamsulosin [Flomax] 0.4 mg PO DAILY 04/15/20 11/10/20 Aspirin EC [Ecotrin] 81 mg PO DAILY 05/09/20 11/10/20 Atorvastatin Calcium [Lipitor] 80 mg PO DAILY 05/09/20 11/10/20 Metoprolol Succinate [Toprol Xl] 25 mg PO DAILY 05/09/20 11/10/20 Oxybutynin Chloride [Ditropan Xl] 10 mg PO DAILY 05/09/20 11/10/20 Sertraline HCl [Zoloft] 150 mg PO DAILY 05/09/20 11/10/20 Pregabalin [Lyrica] 100 mg PO BID 11/10/20 11/10/20 - Allergies Allergies/Adverse Reactions: Allergies Allergy/AdvReac Type Severity Reaction Status Date / Time No Known Drug Allergies Allergy Verified 11/10/20 12:48 - Social History Does the pt smoke?: No Smoking Status: Never smoker Does the pt drink ETOH?: Yes Does the pt have substance abuse?: No - Immunizations Immunizations are current?: Yes - POLST Patient has POLST: No PD ED PE NORMAL - Vitals Vital signs reviewed: Yes - General General: No acute distress, Well developed/nourished, Other (Alert, bruising to the right side of the face) - HEENT HEENT: PERRL, EOMI, Moist mucous membranes - Neck Neck: Supple, no meningeal sign - Cardiac Cardiac: RRR, Strong equal pulses - Respiratory Respiratory: No respiratory distress, Clear bilaterally - Abdomen Abdomen: Soft, Non tender, Non distended - Back Back: No spinal TTP - Derm Derm: Warm and dry - Extremities Extremities: No edema, No calf tenderness / cord - Neuro Neuro: Other (Alert, only able to verbalize "okay") Eye Opening: Spontaneous Motor: Localizes to Pain Verbal: Inappropriate GCS Score: 12 - Psych Psych: Normal mood, Normal affect NIHSS - Time Time: 12:33 - Level of Consciousness Level of consciousness: (0) Alert, Keenly responsive LOC Questions: (2) Answers neither correct LOC Commands: (2)Performs none - Gaze Best Gaze: (0) Normal - Visual Visual: (0) No loss - Facial Palsy Facial Palsy: (0) Normal, symmetrical movement - Motor Arms (both separate) Motor Arm (right): (0) No drift Motor Arm (left): (0) No drift - Motor Legs (both separate) Motor Leg (right): (2) Some effort against gravity Motor Leg (left): (2) Some effort against gravity - Limb Ataxia Limb Ataxia: (2) Present in 2 limbs - Sensory Sensory: (0) Normal - Best Language Best Language: (2) Severe aphasia - Dysarthria Dysarthria: (0) Normal - Extinction and Inattention (formally neg Extinction and inattention: (0) No abnormality - Total Score/Results Total Score/Result: 12 Results - Vitals Vitals: Vital Signs - 24 hr 11/10/20 11/10/20 11/10/20 12:22 12:48 13:18 Temperature 36.0 C L 36.4 C L 36.5 C Heart Rate 58 L 56 L 57 L Respiratory 16 17 14 Rate Blood Pressure 157/81 H 136/85 H 149/95 H O2 Saturation 99 98 98 11/10/20 11/10/20 11/10/20 13:45 13:48 14:00 Temperature Heart Rate 66 74 Respiratory 16 13 Rate Blood Pressure 167/84 H 168/83 H O2 Saturation 86 L 96 95 11/10/20 11/10/20 11/10/20 14:30 15:00 15:30 Temperature 36.5 C 36.2 C L 36.4 C L Heart Rate 73 68 69 Respiratory 17 17 13 Rate Blood Pressure 170/109 H 174/89 H 176/94 H O2 Saturation 98 98 100 11/10/20 11/10/20 16:00 16:30 Temperature 36.4 C L 36.4 C L Heart Rate 71 73 Respiratory 18 14 Rate Blood Pressure 183/93 H 140/120 H O2 Saturation 100 95 Oxygen O2 Source Nasal cannula - Labs Labs: Laboratory Tests 11/10/20 11/10/20 11/10/20 12:41 12:41 12:41 WBC 7.0 RBC 3.97 L Hgb 10.8 L Hct 34.4 L MCV 86.6 MCH 27.2 MCHC 31.4 L RDW 15.2 H Plt Count 126 L MPV 10.3 Neut # (Auto) 5.6 Lymph # (Auto) 0.8 L [place] # (Auto) 0.3 Eos # (Auto) 0.1 Baso # (Auto) 0.0 Absolute Nucleated RBC 0.00 Nucleated RBC % 0.0 PT 14.6 H INR 1.3 H Sodium 136 Potassium 4.2 Chloride 101 Carbon Dioxide 28 Anion Gap 7.0 BUN 15 Creatinine 0.6 Estimated GFR (MDRD) 129 Glucose 127 H Calcium 9.2 Total Bilirubin 1.0 AST 16 ALT 12 Alkaline Phosphatase 100 Total Protein 6.9 Albumin 4.0 Globulin 2.9 Albumin/Globulin Ratio 1.4 Urine Color Urine Clarity Urine pH Ur Specific [place] Urine Protein Urine Glucose (UA) Urine Ketones Urine Occult Blood Urine Nitrite Urine Bilirubin Urine Urobilinogen Ur Leukocyte Esterase Ur Microscopic Review Urine Culture Comments Nasal Adenovirus (PCR) Nasal B. parapertussis DNA (PCR) Nasal Coronavir 229E PCR Nasal Coronavir HKU1 PCR Nasal Coronavir NL63 PCR Nasal Coronavir OC43 PCR Nasal Enterovir/Rhinovir PCR Nasal Influenza B PCR Nasal Influenza A PCR Nasal Parainfluen 1 PCR Nasal Parainfluen 2 PCR Nasal Parainfluen 3 PCR Nasal Parainfluen 4 PCR Nasal RSV (PCR) Nasal B.pertussis DNA PCR Nasal C.pneumoniae (PCR) Rashaad Human Metapneumo PCR Nasal M.pneumoniae (PCR) Nasal SARS-CoV-2 (PCR) 11/10/20 11/10/20 13:55 14:58 WBC RBC Hgb Hct MCV MCH MCHC RDW Plt Count MPV Neut # (Auto) Lymph # (Auto) [place] # (Auto) Eos # (Auto) Baso # (Auto) Absolute Nucleated RBC Nucleated RBC % PT INR Sodium Potassium Chloride Carbon Dioxide Anion Gap BUN Creatinine Estimated GFR (MDRD) Glucose Calcium Total Bilirubin AST ALT Alkaline Phosphatase Total Protein Albumin Globulin Albumin/Globulin Ratio Urine Color YELLOW Urine Clarity CLEAR Urine pH 6.0 Ur Specific [place] 1.015 Urine Protein NEGATIVE Urine Glucose (UA) NEGATIVE Urine Ketones NEGATIVE Urine Occult Blood NEGATIVE Urine Nitrite NEGATIVE Urine Bilirubin NEGATIVE Urine Urobilinogen 0.2 (NORMAL) Ur Leukocyte Esterase NEGATIVE Ur Microscopic Review NOT INDICATED Urine Culture Comments NOT INDICATED Nasal Adenovirus (PCR) NOT DETECTED Nasal B. parapertussis DNA (PCR) NOT DETECTED Nasal Coronavir 229E PCR NOT DETECTED Nasal Coronavir HKU1 PCR NOT DETECTED Nasal Coronavir NL63 PCR NOT DETECTED Nasal Coronavir OC43 PCR NOT DETECTED Nasal Enterovir/Rhinovir PCR NOT DETECTED Nasal Influenza B PCR NOT DETECTED Nasal Influenza A PCR NOT DETECTED Nasal Parainfluen 1 PCR NOT DETECTED Nasal Parainfluen 2 PCR NOT DETECTED Nasal Parainfluen 3 PCR NOT DETECTED Nasal Parainfluen 4 PCR NOT DETECTED Nasal RSV (PCR) NOT DETECTED Nasal B.pertussis DNA PCR NOT DETECTED Nasal C.pneumoniae (PCR) NOT DETECTED Rashaad Human Metapneumo PCR NOT DETECTED Nasal M.pneumoniae (PCR) NOT DETECTED Nasal SARS-CoV-2 (PCR) NOT DETECTED - Rads (name of study) CTA head Radiology: Final report received, EMP read contemporaneously, See rad report CTA neck Radiology: Final report received, EMP read contemporaneously, See rad report PD MEDICAL DECISION MAKING - ED course Complexity details: reviewed results, re-evaluated patient, considered differential, d/w patient ED course: Patient is an 80-year-old male who had a recent subdural hemorrhage. Presents today with symptoms consistent with stroke. Has global aphasia. No acute findings on CT head, CT angio of the neck shows 80 to 90% stenosis on both proximal internal carotid arteries. Discussed the case with Dr. Moreno, neurology who recommends transfer for higher level of care. Discussed the case with Dr. Corbett, neurosurgery [facility] who graciously acceptsin transfer COBRA forms completed. This document was made in part using voice recognition software. While efforts are made to proofread this document, sound alike and grammatical errors may occur. CTA head IMPRESSION: No significant intracranial abnormality is seen. No intracranial hemorrhage is seen. No significant intracranial arterial abnormalities are seen. Age- appropriate brain parenchymal volume loss and chronic small vessel ischemic change can be seen. CTA neck: IMPRESSION: Prominent atherosclerotic calcification and irregularity can be seen involving the proximal internal carotid arteries, with 80-90% stenosis seen on both sides. Potential ulcerative plaque can be seen involving the left proximal internal carotid artery. Vascular surgery consultation is recommended. Departure - Departure Disposition: 02 Transfer Acute Care Hosp Clinical Impression: Global aphasia, Carotid artery stenosis with cerebral infarction Cerebrovascular accident (CVA) Qualifiers: CVA mechanism: unspecified Qualified Code(s): I63.9 - Cerebral infarction, unspecified Condition: Stable
[2020-11-10 12:45] LABS: BASOPHILS % (AUTO) 0.4 %; EOSINOPHILS # (AUTO) 0.1 10^3/uL (0.0-0.7); EOSINOPHILS % (AUTO) 1.9 %; HCT - HEMATOCRIT 34.4 % (42.0-52.0); HGB - HEMOGLOBIN 10.8 g/dL (14.0-18.0); LYMPHOCYTES # (AUTO) 0.8 10^3/uL (1.5-3.5); LYMPHOCYTES % (AUTO) 11.5 %; MEAN CORPUSCULAR HEMOGLOBIN 27.2 pg (27.0-31.0); MEAN CORPUSCULAR HGB CONC 31.4 g/dL (32.0-36.0); MEAN CORPUSCULAR VOLUME 86.6 fL (80.0-94.0); MEAN PLATELET VOLUME 10.3 fL (7.4-11.4); MONOCYTES # (AUTO) 0.3 10^3/uL (0.0-1.0); MONOCYTES % (AUTO) 4.7 %; NEUTROPHILS # (AUTO) 5.6 10^3/uL (1.5-6.6); NEUTROPHILS % (AUTO) 81.1 %; PLT - PLATELET COUNT 126 10^3/uL (130-450); RED BLOOD COUNT 3.97 10^6/uL (4.70-6.10); RED CELL DISTRIBUTION WIDTH 15.2 % (12.0-15.0)
[2020-11-10] MEDS ORDERED: IOPAMIDOL-300 100 ML VIAL ONE (12:52)
[2020-11-10 12:53] LABS: INR 1.3 (0.8-1.2); PT - PROTHROMBIN TIME 14.6 secs (9.9-12.6)
[2020-11-10 12:59] LABS: ALBUMIN/GLOBULIN RATIO 1.4 (1.0-2.2); CALCIUM 9.2 mg/dL (8.5-10.3); CREATININE 0.6 mg/dL (0.6-1.2); POTASSIUM 4.2 mmol/L (3.5-5.0); TOTAL PROTEIN 6.9 g/dL (6.7-8.2)
--- NOTE | 2020-11-10 14:05 | CT Report ---
PROCEDURE: ANGIO HEAD W/WO INDICATIONS: L sided facial droop CONTRAST: IV CONTRAST: Isovue 300 ml: 80 PO CONTRAST: *NO PO CONTRAST TECHNIQUE: Precontrast 4.5 mm thick angled axial sections acquired from the foramen magnum to the vertex. Afte r the administration of intravenous contrast, 1 mm thick sections acquired through the [place] of [place]. Postcontrast 4.5 mm thick sections then re-acquired from the foramen magnum to the vertex. 3-di mensional svyaqyz-tsufyhthv-asvtcyyktk (MIP) and/or volume rendering reformats were acquired of the c entral intracranial vasculature. For radiation dose reduction, the following was used: automated ex posure control, adjustment of mA and/or kV according to patient size. COMPARISON: Correlation is made with the accompanying neck CT angiogram, 11/10/2020. FINDINGS: Image quality: Excellent. Anterior circulation: Generalized atherosclerotic irregularity and calcification can be seen involvi ng the intracranial internal carotid arteries. There is approximately 50% narrowing seen on each side . The flow within the paired anterior cerebral arteries is normal and symmetric. The flow within th e middle cerebral arteries is normal and symmetric. The anterior communicating artery is seen. No a neurysms are seen. Posterior circulation: Visualized portions of the vertebral arteries demonstrate normal caliber, and join to form a normal appearing basilar artery. Flow within the posterior cerebral arteries is norm al and symmetric. No aneurysms are seen. CSF spaces: Ventricles are normal in size and shape. Basal cisterns are patent. No extra-axial flu id collections. Brain: No midline shift. No intracranial bleeds or masses. [place]-white matter interface appears int act. Age-appropriate brain parenchymal volume loss and chronic small vessel ischemic change can be s een. In this patient with a given history of a left facial droop, scrutiny is given to the course of the l eft facial nerve, including within the left parotid gland. To the limits of this CT study, no masses or abnormal enhancement can be seen along the course of the left facial nerve. Skull and face: Calvarium and facial bones appear intact, without suspicious lesions. Sinuses: Visualized sinuses and mastoids are clear. IMPRESSION: No significant intracranial abnormality is seen. No intracranial hemorrhage is seen. No significant intracranial arterial abnormalities are seen. Age-appropriate brain parenchymal volume loss and chronic small vessel ischemic change can be seen. Reviewed by: Efra Kessler MD on 11/10/2020 1:03 PM BONNIE Approved by: Efra Kessler MD on 11/10/2020 1:03 PM BONNIE Station ID: [id number]
--- NOTE | 2020-11-10 14:09 | CT Report ---
PROCEDURE: ANGIO NECK W INDICATIONS: aphasia CONTRAST: IV CONTRAST: Isovue 300 ml: 80 PO CONTRAST: *NO PO CONTRAST TECHNIQUE: After the administration of intravenous contrast, 1.5 mm axial sections acquired from the aortic arch to the [place] of [place]. Coronal 3-D maximum intensity projection (MIP) and/or volume rendering ref ormats were then performed. For radiation dose reduction, the following was used: automated exposur e control, adjustment of mA and/or kV according to patient size. COMPARISON: Correlation is made with sacral CTs 621. FINDINGS: Image quality: Evaluation to the level of the shoulders is limited by streak artifact. Carotid system: The great vessels demonstrate a conventional anatomy as they arise from the aortic a rch. The origins of the common carotid arteries appear patent. The common carotid arteries demonstr ate normal calibers and courses. The bifurcation regions demonstrate atherosclerotic irregularity an d calcification. On the left, there is moderate to prominent mural thrombus seen, with 80-90% stenosi s. There is potential ulcerated plaque present, as on series 5 image 70. On the right, there is also 80-90% stenosis seen within the proximal internal carotid artery. The more distal internal carotid ar teries demonstrate normal caliber. Tortuosity seen of the left internal carotid artery. Posterior circulation: The origin of the left vertebral artery isn't seen. The right vertebral artery origin is within normal limits. The more superior portions of the vertebral arteries demonstrate nor mal course and caliber. Soft tissues: Visualized neck soft tissues demonstrate no suspicious abnormalities. The thyroid is normal in size and there are no incidental findings. Bones: No suspicious bony lesions. Visualized cervical spine appears normally aligned. At least m oderate cervical spine degenerative change can be seen, which is worst inferiorly. IMPRESSION: Prominent atherosclerotic calcification and irregularity can be seen involving the proximal internal carotid arteries, with 80-90% stenosis seen on both sides. Potential ulcerative plaque can be seen involving the left proximal internal carotid artery. Vascular surgery consultation is recommended. The estimate of stenosis included in the report of the imaging study was calculated using the NASCET method Reviewed by: Efra Kessler MD on 11/10/2020 1:08 PM BONNIE Approved by: Efra Kessler MD on 11/10/2020 1:08 PM BONNIE Station ID: [id number]
[2020-11-10] MEDS ORDERED: IOPAMIDOL-300 100 ML VIAL IVP ONE (14:49)
[2020-11-10 15:08] LABS: BILIRUBIN,URINE NEGATIVE (NEGATIVE); GLUCOSE, URINE (UA) NEGATIVE (NEGATIVE); KETONES,URINE (UA) NEGATIVE (NEGATIVE); LEUKOCYTE ESTERASE, URINE NEGATIVE (NEGATIVE); NITRITE,URINE NEGATIVE (NEGATIVE); OCCULT BLOOD,URINE NEGATIVE (NEGATIVE); PROTEIN,URINE NEGATIVE (NEGATIVE); UROBILINOGEN,URINE 0.2 (NORMAL) E.U./dL (NORMAL)
[2020-11-10 15:10] LABS: CLARITY,URINE CLEAR (CLEAR)
[2020-11-10 15:12] LABS: B. PARAPERTUSSIS- RESP PCR PAN NOT DETECTED; B. PERTUSSIS- RESP PCR PANEL NOT DETECTED; C. PNEUMONIAE- RESP PCR PANEL NOT DETECTED; CORONAVIRUS 229E-RESP PCR NOT DETECTED; CORONAVIRUS HKU1-RESP PCR NOT DETECTED; CORONAVIRUS NL63-RESP PCR NOT DETECTED; CORONAVIRUS OC43-RESP PCR NOT DETECTED; HUMAN METAPNEUMOVIRUS NOT DETECTED; INFLUENZA A- RESP PCR PANEL NOT DETECTED; INFLUENZA B - RESP PCR PANEL NOT DETECTED; M. PNEUMONIAE- RESP PCR PANEL NOT DETECTED; PARAINFLUENZA VIRUS 1 NOT DETECTED; PARAINFLUENZA VIRUS 2 NOT DETECTED; PARAINFLUENZA VIRUS 3 NOT DETECTED; PARAINFLUENZA VIRUS 4 NOT DETECTED; RHINOVIRUS/ENTEROVIRUS NOT DETECTED; RSV- RESP PCR PANEL NOT DETECTED; SARS-CoV-2 -RESP PCR PANEL NOT DETECTED
[2020-11-10 18:16] VITALS: BP 174/101
== END 2020-11-10 18:20 | disposition short-term general hospital (02) ==
LOC: EDUNIT# → ED 12:22
DX: I63.233 Cerebral infarction due to unspecified occlusion or stenosis of bilateral carotid arteries (principal); R47.01 Aphasia; R29.712 NIHSS score 12; Z20.822 Contact with and (suspected) exposure to COVID-19; Z86.79 Personal history of other diseases of the circulatory system
CPT/HCPCS: 36415; 70496; 70498; 80053; 81003; 85025; 85610; 87631; 93005; 99285; Q9967; 0202U; 81001; 87086

== ENCOUNTER 2020-11-10 18:22 | Outpatient (CLI) | payer MEDICARE, OTHER | END 2020-11-10 18:23 | disposition short-term general hospital (02) | LOC: EMS 18:22 | PROVIDERS: ATTEND Emergency Medicine | DX: I63.9 Cerebral infarction, unspecified (principal) | CPT/HCPCS: A0425; A0426 ==

== ENCOUNTER 2021-01-17 12:59 | Outpatient (CLI) | payer MEDICARE, OTHER ==
--- NOTE | 2021-01-17 17:14 | XRAY Report ---
PROCEDURE: Shoulder 3 View RT INDICATIONS: FROZEN SHOULDER TECHNIQUE: 3 views of the shoulder were acquired. COMPARISON: None. FINDINGS: Bones: No fractures or dislocations. No suspicious bony lesions. Visualized ribs appear intact. S evere acromioclavicular severe glenohumeral degenerative narrowing. Prominent humeral head osteophyte is present. Subchondral sclerosis is present. No visualized erosions. Soft tissues: No suspicious soft tissue calcifications. IMPRESSION: Severe acromioclavicular and glenohumeral arthritic change. Reviewed by: Audra Beal MD on 01/17/2021 5:12 PM PDT Approved by: Audra Beal MD on 01/17/2021 5:12 PM PDT Station ID: [id number]
== END 2021-01-17 13:00 | disposition home or self-care (01) ==
LOC: DI 12:59
PROVIDERS: ATTEND Internal Medicine
DX: M75.01 Adhesive capsulitis of right shoulder (principal); M19.011 Primary osteoarthritis, right shoulder

== ENCOUNTER 2021-02-23 14:34 | Outpatient (CLI) | payer MEDICARE, OTHER | END 2021-02-23 14:35 | disposition EMS.NT | LOC: EMS 14:34 | DX: Z03.89 Encounter for observation for other suspected diseases and conditions ruled out (principal) ==

== ENCOUNTER 2021-03-15 13:45 | Outpatient (CLI) | payer MEDICARE, OTHER ==
--- NOTE | 2021-03-16 10:47 | Ultrasound Report ---
PROCEDURE: Carotid Doppler Complete INDICATIONS: BILAT CARTOTID ARTERY STENOSIS TECHNIQUE: Color and pulse Doppler interrogation was performed of both carotid systems, with image documentation and velocity measurements. COMPARISON: Previous carotid ultrasound report dated 06/05/2007. FINDINGS: Bilateral calcified plaque, right greater than left Right side: Brachial blood pressure: 151/74 mm Hg. Common carotid artery peak systolic velocity: 46.0 cm/s, previously 56.3 cm/sec. Internal carotid artery peak systolic velocity: 66.4 cm/s, previously 47.4 cm/sec. Internal carotid artery end diastolic velocity: 18.1 cm/s, previously 17.3 cm/sec. External carotid artery peak systolic velocity: 50.6 cm/s, previously 49.4 ICA/CCA peak systolic ratio: 1.4, previously 0.8 . [place] scale imaging description: Calcified plaque with distal shadowing. No velocity elevations. Percent internal carotid artery stenosis: Mild, less than 50% by peak systolic velocity criteria . Vertebral artery: Flow direction is antegrade. Left side: Brachial blood pressure: 155/90 mm Hg. Common carotid artery peak systolic velocity: 49.8 cm/s, previously 83.2 cm/sec. Internal carotid artery peak systolic velocity: 26.9 cm/s, previously 70.9 cm/sec. Internal carotid artery end diastolic velocity: 7.0 cm/s, previously 27.1 cm/sec. External carotid artery peak systolic velocity: 29.2 cm/s, previously 44.9 cm/sec. ICA/CCA peak systolic ratio: 0.5, previously 0.9 . [place] scale imaging description: Calcified plaque. No significant stenosis. Percent internal carotid artery stenosis: Mild, less than 50% by peak systolic velocity criteria . Vertebral artery: Flow direction is antegrade. IMPRESSION: Bilateral calcified plaque, right greater than left. Mild bilateral internal carotid artery stenosis, less than 50% by peak systolic velocity criteria. The estimate of stenosis included in the report of the imaging study was calculated using the NASCET method Reviewed by: Morgan Estrada MD on 03/16/2021 10:46 AM PST Approved by: Morgan Estrada MD on 03/16/2021 10:46 AM PST Station ID: [id number]
== END 2021-03-15 13:46 | disposition home or self-care (01) ==
LOC: DI 13:45
PROVIDERS: ATTEND Internal Medicine Hospice and Palliative Medicine
DX: I65.23 Occlusion and stenosis of bilateral carotid arteries (principal)
CPT/HCPCS: 93880

== ENCOUNTER 2021-10-23 11:10 | Outpatient (CLI) | payer MEDICARE, OTHER ==
--- NOTE | 2021-10-23 17:37 | Ultrasound Report ---
PROCEDURE: Testicle INDICATIONS: OTHER SPECIFIED DISORDERS OF THE MALE GENITAL ORGA TECHNIQUE: Real-time scanning was performed of the scrotum and testicles, with image documentation. Color and p ulse Doppler interrogation was performed of both testicles. COMPARISON: None. FINDINGS: Right: Testicle is normal in size at 4.5 x 2.3 x 3.8 cm, and homogenous in echotexture. Epididymis is normal in overall size and morphology. No varicocele. There is a small hydrocele. Overlying scrot al skin is normal in thickness. Left: Testicle is normal in size at 4.4 x 2.3 x 3.5 cm, and homogeneous in echotexture. Epididymis is normal in overall size and morphology. There is incidentally noted epididymal appendix. There is a small left hydrocele. A left varicocele is noted. Overlying scrotal skin is normal in thickness. There is a left inguinal hernia which appears reducible and fat-containing. Doppler: Color and pulse Doppler demonstrate normal and symmetric arterial flow in both testicles. IMPRESSION: 1. Small right hydrocele. 2. Small left hydrocele. 3. Left varicocele. 4. Fat-containing reducible left inguinal hernia. Reviewed by: Jennifer Jerome MD on 10/23/2021 5:36 PM PDT Approved by: Jennifer Jerome MD on 10/23/2021 5:36 PM PDT Station ID: [id number]
== END 2021-10-23 11:11 | disposition home or self-care (01) ==
LOC: DI 11:10
PROVIDERS: ATTEND Internal Medicine
DX: N43.3 Hydrocele, unspecified (principal); I86.1 Scrotal varices; K40.90 Unilateral inguinal hernia, without obstruction or gangrene, not specified as recurrent

== ENCOUNTER 2022-03-29 13:06 | Outpatient (CLI) | payer MEDICARE, OTHER | END 2022-03-29 13:07 | disposition EMS.NT | LOC: EMS 13:06 | DX: Z03.89 Encounter for observation for other suspected diseases and conditions ruled out (principal) ==

== ENCOUNTER 2022-04-04 12:14 | Outpatient (CLI) | payer MEDICARE, OTHER ==
--- NOTE | 2022-04-04 18:06 | XRAY Report ---
PROCEDURE: Shoulder 3 View RT INDICATIONS: RIGHT SHOULDER PAIN TECHNIQUE: 3 views of the shoulder were acquired. COMPARISON: 01/17/2021. FINDINGS: Bones: No acute fractures or dislocations. Interval progression of severe osteophytic changes of the glenohumeral joint. Increased joint space loss. Increased prominence in size of marginal osteophytes . No suspicious bony lesions. Visualized ribs appear intact. Interval widening of the acromioclavic ular joint space which may represent post surgical changes versus possible ligamentous injury. The co racoclavicular interval appears to be stable. Soft tissues: No suspicious soft tissue calcifications. IMPRESSION: 1. Right shoulder without acute fracture. 2. Interval widening of the right acromioclavicular joint interval. Findings may be related to postsu rgical sequela if patient had intervention since the prior study. Otherwise, findings may represent i njury to the acromioclavicular ligaments given history of falls. 3. Interval progression of severe glenohumeral osteoarthrosis. Reviewed by: Ben Rodriguez MD on 04/04/2022 6:05 PM PST Approved by: Ben Rodriguez MD on 04/04/2022 6:05 PM PST Station ID: [id number]
== END 2022-04-04 12:15 | disposition home or self-care (01) ==
LOC: DI 12:14
PROVIDERS: ATTEND Internal Medicine
DX: M19.011 Primary osteoarthritis, right shoulder (principal)

== ENCOUNTER 2022-07-11 14:35 | Outpatient (CLI) | payer MEDICARE, OTHER | END 2022-07-11 23:59 | disposition EMS.NT | LOC: EMS 14:35 | DX: Z03.89 Encounter for observation for other suspected diseases and conditions ruled out (principal) ==

== ENCOUNTER 2022-08-02 21:59 | Outpatient (CLI) | payer MEDICARE, OTHER | END 2022-08-02 23:59 | disposition EMS.NT | LOC: EMS 21:59 | DX: Z03.89 Encounter for observation for other suspected diseases and conditions ruled out (principal) ==

== ENCOUNTER 2022-10-08 23:14 | Outpatient (CLI) | payer MEDICARE, OTHER | END 2022-10-08 23:15 | disposition left against medical advice (07) | LOC: EMS 23:14 | DX: S00.11XA Contusion of right eyelid and periocular area, initial encounter (principal); W01.198A Fall on same level from slipping, tripping and stumbling with subsequent striking against other object, initial encounter; Y92.000 Kitchen of unspecified non-institutional (private) residence as the place of occurrence of the external cause; Y99.8 Other external cause status ==

== ENCOUNTER 2022-11-21 22:00 | Outpatient (CLI) | payer MEDICARE, OTHER | END 2022-11-21 23:59 | disposition EMS.NT | LOC: EMS 22:00 | DX: Z03.89 Encounter for observation for other suspected diseases and conditions ruled out (principal) ==

== ENCOUNTER 2022-11-24 20:25 | Outpatient (CLI) | payer MEDICARE, OTHER | END 2022-11-24 20:26 | disposition EMS.NT | LOC: EMS 20:25 | DX: Z03.89 Encounter for observation for other suspected diseases and conditions ruled out (principal) ==

== ENCOUNTER 2022-12-12 20:38 | Outpatient (CLI) | payer MEDICARE, OTHER | END 2022-12-12 23:59 | disposition EMS.NT | LOC: EMS 20:38 | DX: Z03.89 Encounter for observation for other suspected diseases and conditions ruled out (principal) ==

== ENCOUNTER 2023-02-13 21:07 | Outpatient (CLI) | payer MEDICARE, OTHER | END 2023-02-13 23:59 | disposition EMS.NT | LOC: EMS 21:07 | DX: Z03.89 Encounter for observation for other suspected diseases and conditions ruled out (principal) ==

== ENCOUNTER 2023-04-26 16:30 | Outpatient (CLI) | payer MEDICARE, OTHER | END 2023-04-26 23:59 | disposition EMS.NT | LOC: EMS 16:30 | DX: Z03.89 Encounter for observation for other suspected diseases and conditions ruled out (principal) ==

== ENCOUNTER 2023-06-06 15:48 | Outpatient (CLI) | payer MEDICARE, OTHER | END 2023-06-06 23:59 | disposition EMS.NT | LOC: EMS 15:48 | DX: R50.9 Fever, unspecified (principal); R53.1 Weakness; W18.39XA Other fall on same level, initial encounter; Y92.002 Bathroom of unspecified non-institutional (private) residence as the place of occurrence of the external cause ==

== ENCOUNTER 2023-07-21 20:01 | Outpatient (CLI) | payer MEDICARE, OTHER | END 2023-07-21 20:02 | disposition critical access hospital (66) | LOC: EMS 20:01 | DX: R41.0 Disorientation, unspecified (principal); R46.4 Slowness and poor responsiveness; R29.810 Facial weakness; R47.81 Slurred speech; R53.1 Weakness | CPT/HCPCS: A0425; A0429 ==

== ENCOUNTER 2023-07-21 20:15 | Inpatient (IN) | payer MEDICARE, OTHER ==
--- NOTE | 2023-07-21 20:29 | ED Physician Documentation ---
History of Present Illness - Stated complaint Stated Complaint: CODE STROKE - History obtained from History obtained from: EMS - Additonal information Additional information: The patient is brought to the emergency department by EMS for chief complaint of "slurred speech" and altered mental status after a prolonged dental appointment. The symptoms apparently started around 1900 and the patient's dental appointment had ended an hour or 2 before. The medics state that they thought maybe there was little facial droop on the right, but that the could not remember which side the patient had had the dental work on and they are not sure if this is related to that or not. The patient has been unable to offer any information. He can speak but is confused per medics. His fingerstick glucose was normal. He has been hypertensive in route. He has not had any focal deficits but just seems generally weak in all 4 extremities. They state that the denied any recent head injuries. The patient normally is somewhat weak at home but lives at home with his and is alert and coherent. They state that the did not think the patient had gotten any narcotic pain medication in association with his dental procedure. Medics state that the patient's pupils 2 mm bilaterally. No other complaints at this time. The patient is unable to offer any information. PD PAST MEDICAL HISTORY - Past Medical History Cardiovascular: High cholesterol, [place] Respiratory: COPD, Sleep apnea, CPAP use Neuro: None, Other Endocrine/Autoimmune: None GI: None : None HEENT: Chronic hearing loss Psych: Anxiety Musculoskeletal: Osteoarthritis Derm: Psoriasis - Past Surgical History Past Surgical History: Yes General: Colonoscopy Ortho: Knee replacement Cardiovascular: Coronary stent, Lobectomy - Present Medications Home Medications: Ambulatory Orders Medication Instructions Recorded Confirmed Tamsulosin [Flomax] 0.4 mg PO DAILY PM 04/15/20 07/21/23 Aspirin EC [Ecotrin] 81 mg PO DAILY 05/09/20 07/21/23 Sertraline HCl [Zoloft] 100 mg PO DAILY 05/09/20 07/21/23 oxyBUTYnin chloride [Ditropan Xl] 10 mg PO DAILY 05/09/20 07/21/23 Omeprazole 1 tab PO DAILY 07/21/23 07/21/23 - Allergies Allergies/Adverse Reactions: Allergies Allergy/AdvReac Type Severity Reaction Status Date / Time No Known Drug Allergies Allergy Verified 07/21/23 20:33 - Social History Does the pt smoke?: No Smoking Status: Never smoker Does the pt drink ETOH?: Yes Does the pt have substance abuse?: No - Immunizations Immunizations are current?: Yes - POLST Patient has POLST: No PD ED PE NORMAL - Vitals Vital signs reviewed: Yes - General General: No acute distress, Well developed/nourished, Other (Awake, slowly makes eye contact when his name is said, cannot give any specific answers to questions.) - HEENT HEENT: Atraumatic, PERRL (2 mm, sluggishly reactive.), EOMI, Moist mucous membranes, Other (Poor dentition with multiple missing or severely decayed teeth. Unclear which tooth was worked on, even by examination.) - Neck Neck: Supple, no meningeal sign - Cardiac Cardiac: RRR, No murmur, Strong equal pulses - Respiratory Respiratory: No respiratory distress, Clear bilaterally - Abdomen Abdomen: Soft, Non tender, Non distended - Derm Derm: Normal color, Warm and dry, Other (Scabbed rash over face.) - Extremities Extremities: No deformity, Other (Trace pitting edema bilaterally.) - Neuro Neuro: Other (Moving all 4 extremities. No obvious cranial nerve deficits. Patient is awake and responds to his name being said but cannot tell us his name. Articulation intact.) - Psych Psych: Normal mood, Normal affect Results - Vitals Vitals: Vital Signs - 24 hr 07/21/23 07/21/23 07/21/23 20:27 22:03 22:30 Temperature 35.8 C L Heart Rate 87 99 94 Respiratory 20 20 20 Rate Blood Pressure 187/96 H 170/102 H 190/105 H O2 Saturation 97 93 07/21/23 07/21/23 23:00 23:30 Temperature Heart Rate 94 100 Respiratory 22 22 Rate Blood Pressure 181/113 H 179/108 H O2 Saturation 93 Oxygen O2 Source Room air - Labs Labs: Laboratory Tests 07/21/23 07/21/23 07/21/23 20:18 20:18 20:18 WBC 8.0 RBC 4.69 L Hgb 12.2 L Hct 39.0 L MCV 83.2 MCH 26.0 L MCHC 31.3 L RDW 14.6 Plt Count 119 L MPV 10.8 Neut # (Auto) 7.2 H Lymph # (Auto) 0.4 L [place] # (Auto) 0.3 Eos # (Auto) 0.0 Baso # (Auto) 0.0 Absolute Nucleated RBC 0.00 Nucleated RBC % 0.0 Sodium 127 L Potassium 4.2 Chloride 93 L Carbon Dioxide 23 Anion Gap 11.0 BUN 16 Creatinine 0.8 Estimated GFR (MDRD) 92 Glucose 164 H Calcium 9.6 Total Bilirubin 0.8 AST 17 ALT 8 L Alkaline Phosphatase 56 Ammonia Troponin I High Sens 9.6 Total Protein 7.7 Albumin 4.7 Globulin 3.0 Albumin/Globulin Ratio 1.6 Lipase < 10 L Urine Color Urine Clarity Urine pH Ur Specific [place] Urine Protein Urine Glucose (UA) Urine Ketones Urine Occult Blood Urine Nitrite Urine Bilirubin Urine Urobilinogen Ur Leukocyte Esterase Urine RBC Urine WBC Ur Squamous Epith Cells Urine Bacteria Ur Microscopic Review Urine Culture Comments Urine Opiates Screen Ur Buprenorphine Scrn Ur Oxycodone Screen Urine Methadone Screen Ur Barbiturates Screen Ur Tricyclics Screen Ur Phencyclidine Scrn Ur Amphetamine Screen U Methamphetamines Scrn U Benzodiazepines Scrn Urine Cocaine Screen U Cannabinoids Screen Ur Drug Screen Comment Ethyl Alcohol < 10.0 07/21/23 07/21/23 20:34 20:55 WBC RBC Hgb Hct MCV MCH MCHC RDW Plt Count MPV Neut # (Auto) Lymph # (Auto) [place] # (Auto) Eos # (Auto) Baso # (Auto) Absolute Nucleated RBC Nucleated RBC % Sodium Potassium Chloride Carbon Dioxide Anion Gap BUN Creatinine Estimated GFR (MDRD) Glucose Calcium Total Bilirubin AST ALT Alkaline Phosphatase Ammonia 14.4 L Troponin I High Sens Total Protein Albumin Globulin Albumin/Globulin Ratio Lipase Urine Color YELLOW Urine Clarity CLEAR Urine pH 6.5 Ur Specific [place] 1.020 Urine Protein 30 H Urine Glucose (UA) 100 H Urine Ketones 15 H Urine Occult Blood TRACE-INTA Urine Nitrite NEGATIVE Urine Bilirubin NEGATIVE Urine Urobilinogen 0.2 (NORMAL) Ur Leukocyte Esterase NEGATIVE Urine RBC 0-5 Urine WBC 0-3 Ur Squamous Epith Cells NONE SEEN Urine Bacteria None Seen Ur Microscopic Review INDICATED Urine Culture Comments NOT INDICATED Urine Opiates Screen NEGATIVE Ur Buprenorphine Scrn NEGATIVE Ur Oxycodone Screen NEGATIVE Urine Methadone Screen NEGATIVE Ur Barbiturates Screen NEGATIVE Ur Tricyclics Screen NEGATIVE Ur Phencyclidine Scrn NEGATIVE Ur Amphetamine Screen NEGATIVE U Methamphetamines Scrn NEGATIVE U Benzodiazepines Scrn NEGATIVE Urine Cocaine Screen NEGATIVE U Cannabinoids Screen NEGATIVE Ur Drug Screen Comment CUTOFF CONC BELOW: Ethyl Alcohol - Rads (name of study) head CT Relevant Findings:: Final report received, See rad report (no acute findings) CTA head/neck Relevant Findings:: Final report received, See rad report (no acute findings) PD Medical Decision Making - ED course Complexity details: reviewed results, re-evaluated patient, considered differential, d/w patient ED course: The patient was worked up with labs, EKG, urinalysis, and head CT/CTA. He was given a liter of IV fluid. CTs did not show any acute findings. Labs showed a moderate hyponatremia at 127 but otherwise, unremarkable. Urinalysis, drug screen, and EtOH level were all normal/negative. The patient really has not improved meaningfully while in the ED and I felt he would need to be admitted to the hospital for MRI tomorrow and for observation as he is completely and gravely disabled, being oriented x 0 and unable to comprehend questions at this point in time. I discussed the case with telehospitalist on-call Dr. Bhatia and she did agree to admit the patient for observation. Departure - Departure Disposition: ED Place in Observation Clinical Impression: Confusion Altered mental status Qualifiers: Altered mental status type: delirium Qualified Code(s): R41.0 - Disorientation, unspecified Condition: Serious
[2023-07-21 20:41] LABS: BASOPHILS % (AUTO) 0.2 %; EOSINOPHILS % (AUTO) 0.4 %; HGB - HEMOGLOBIN 12.2 g/dL (14.0-18.0); LYMPHOCYTES # (AUTO) 0.4 10^3/uL (1.5-3.5); LYMPHOCYTES % (AUTO) 5.5 %; MEAN CORPUSCULAR HGB CONC 31.3 g/dL (32.0-36.0); MEAN CORPUSCULAR VOLUME 83.2 fL (80.0-94.0); MEAN PLATELET VOLUME 10.8 fL (7.4-11.4); MONOCYTES # (AUTO) 0.3 10^3/uL (0.0-1.0); MONOCYTES % (AUTO) 3.1 %; NEUTROPHILS # (AUTO) 7.2 10^3/uL (1.5-6.6); NEUTROPHILS % (AUTO) 90.1 %; PLT - PLATELET COUNT 119 10^3/uL (130-450); RED BLOOD COUNT 4.69 10^6/uL (4.70-6.10); RED CELL DISTRIBUTION WIDTH 14.6 % (12.0-15.0)
[2023-07-21 20:53] LABS: ALBUMIN 4.7 g/dL (3.2-5.5); ALBUMIN/GLOBULIN RATIO 1.6 (1.0-2.2); ALKALINE PHOSPHATASE 56 IU/L (42-121); ALT ALANINE AMINOTRANSFERASE 8 IU/L (10-60); AST ASPARTATE AMINOTRANSFERASE 17 IU/L (10-42); BILIRUBIN,TOTAL 0.8 mg/dL (0.2-1.0); BUN - BLOOD UREA NITROGEN 16 mg/dL (6-20); CALCIUM 9.6 mg/dL (8.5-10.3); CARBON DIOXIDE - CO2 23 mmol/L (21-32); CHLORIDE 93 mmol/L (101-111); CREATININE 0.8 mg/dL (0.6-1.3); GFR - MDRD 92 (>89); GLUCOSE 164 mg/dL (74-104); POTASSIUM 4.2 mmol/L (3.5-4.5); SODIUM 127 mmol/L (135-145); TOTAL PROTEIN 7.7 g/dL (6.4-8.9)
[2023-07-21 20:54] LABS: ETOH - ETHANOL < 10.0 mg/dL
[2023-07-21 20:58] LABS: TROPONIN I HIGH SENSITIVITY 9.6 ng/L (2.3-19.7)
[2023-07-21 21:05] LABS: BILIRUBIN,URINE NEGATIVE (NEGATIVE); GLUCOSE, URINE (UA) 100 mg/dL (NEGATIVE); KETONES,URINE (UA) 15 mg/dL (NEGATIVE); LEUKOCYTE ESTERASE, URINE NEGATIVE (NEGATIVE); NITRITE,URINE NEGATIVE (NEGATIVE); OCCULT BLOOD,URINE TRACE-INTA (NEGATIVE); PH,URINE 6.5 PH (5.0-7.5); PROTEIN,URINE 30 mg/dL (NEGATIVE); UROBILINOGEN,URINE 0.2 (NORMAL) E.U./dL (NORMAL)
[2023-07-21 21:08] LABS: CLARITY,URINE CLEAR (CLEAR)
--- NOTE | 2023-07-21 21:09 | CT Report ---
PROCEDURE: Head WO INDICATIONS: acute ALOC, "slurred speech" vs aphasia TECHNIQUE: Noncontrast 4.5 mm thick angled axial sections acquired from the foramen magnum to the vertex. For r adiation dose reduction, the following was used: automated exposure control, adjustment of mA and/or kV according to patient size. COMPARISON: 09/26/2020. FINDINGS: Image quality: Excellent. CSF spaces: Basal cisterns are patent. No extra-axial fluid collections. Ventricles are normal in size and shape. Brain: Hypoattenuation within the left frontoparietal region. No midline shift. No intracranial mas ses or hemorrhage. Age-related global volume loss and chronic microvascular ischemic changes. Intracr anial atherosclerotic vascular calcifications. [place]-white matter interface is normal. Skull and face: Calvarium and visualized facial bones are intact, without suspicious lesions. Sinuses: Visualized sinuses and mastoids are clear. IMPRESSION: 1.No acute intracranial hemorrhage. 2.Hypoattenuation within the left frontoparietal region, likely representing encephalomalacia from pr ior infarct or other insult. Acute infarct is felt to be less likely but MRI could be obtained for fu rther evaluation as clinically indicated. Reviewed by: John Butts MD on 07/21/2023 9:07 PM PDT Approved by: John Butts MD on 07/21/2023 9:07 PM PDT Station ID: [id number]
[2023-07-21 21:26] LABS: BACTERIA,URINE None Seen /HPF (None Seen); RBC,URINE 0-5 /HPF (0-5); SQUAMOUS EPITHELIAL CELL,UR NONE SEEN (<= Few); WBC,URINE 0-3 /HPF (0-3)
[2023-07-21 21:27] LABS: AMPHETAMINE SCREEN,URINE NEGATIVE (NEGATIVE); BARBITURATE SCREEN,UR NEGATIVE (NEGATIVE); BENZODIAZEPINES SCREEN, URINE NEGATIVE (NEGATIVE); BUPRENORPHINE SCREEN, URINE NEGATIVE (NEGATIVE); COCAINE SCREEN URINE NEGATIVE (NEGATIVE); METHADONE SCREEN, URINE NEGATIVE (NEGATIVE); METHAMPHETAMINES SCREEN, URINE NEGATIVE (NEGATIVE); OPIATE SCREEN, URINE NEGATIVE (NEGATIVE); OXYCODONE SCREEN, URINE NEGATIVE (NEGATIVE); THC CANNABINOID SCREEN, URINE NEGATIVE (NEGATIVE); TRICYCLIC ANTIDEPRESSANT,URINE NEGATIVE (NEGATIVE)
[2023-07-21 21:28] LABS: LIPASE < 10 U/L (11-82)
[2023-07-21] MEDS ORDERED: iohexoL-300 100 ML VIAL ONE (21:35)
[2023-07-21] MEDS: ONDANSETRON 4 MG/2 ML VIAL IVP STA (21:58)
--- NOTE | 2023-07-21 22:23 | CT Report ---
PROCEDURE: Angio Head/Neck INDICATIONS: aphasia, aloc TECHNIQUE: After the administration of intravenous contrast, 1 mm thick sections acquired from the aortic arch t hrough the [place]. 3-dimensional hqvdbac-qdceaxyfa-fitkdmxord (MIP) and/or volume renderin g reformats were acquired of the central intracranial vasculature and neck separately. For radiation dose reduction, the following was used: automated exposure control, adjustment of mA and/or kV acco rding to patient size. CONTRAST: 80 ml [id number] COMPARISON: 11/10/2020. FINDINGS: Image quality: Motion degraded. HEAD CT: Please refer to same day CT head. HEAD CT ANGIOGRAPHY: Anterior circulation: Intracranial internal carotid arteries are normal in size and flow. The flow within the paired anterior cerebral arteries is normal and symmetric. The flow within the middle cer ebral arteries is normal and symmetric. The anterior communicating artery is seen. No aneurysms are seen. Posterior circulation: Visualized portions of the vertebral arteries demonstrate normal caliber, and join to form a normal appearing basilar artery. Flow within the posterior cerebral arteries is norm al and symmetric. No aneurysms are seen. NECK CT ANGIOGRAPHY: Carotid system: The great vessels demonstrate a conventional anatomy as they arise from the aortic a rch with atherosclerotic vascular calcifications. Dilated main pulmonary artery. The origins of the c ommon carotid arteries appear patent. The common carotid arteries demonstrate normal caliber and cou rses. Atherosclerotic vascular calcifications at the carotid bifurcations with moderate stenosis of t he right proximal ICA, approximately 50% cystic. No significant stenosis of the left proximal ICA.. The internal carotid arteries demonstrate normal calibers and courses. Posterior circulation: The origins of the vertebral arteries both appear widely patent. The more [place]ev[place] perior extracranial portions of both vertebral arteries also demonstrate normal courses and calibers. They join to form a normal appearing basilar artery. Soft tissues: Visualized neck soft tissues demonstrate no suspicious abnormalities. Bones: No suspicious bony lesions. Degenerative changes of the spine. Visualized cervical spine appe ars normally aligned. IMPRESSION: No significant intracranial arterial abnormality is seen. Moderate stenosis of the right proximal ICA, approximately 50% narrowing. Otherwise, no significant a bnormality is seen within the arteries of the neck. The estimate of stenosis included in the report of the imaging study was calculated using the NASCET method Reviewed by: John Butts MD on 07/21/2023 10:22 PM PDT Approved by: John Butts MD on 07/21/2023 10:22 PM PDT Station ID: [id number]
[2023-07-21] MEDS: iohexoL-300 100 ML VIAL IVP ONE (22:29)
[2023-07-22] MEDS: SODIUM CHLORIDE 0.9% 1,000 ML IV STA (00:12)
--- NOTE | 2023-07-22 00:30 | HISTORY & PHYSICAL EXAMINATION ---
Chief Complaint - Chief Complaint Chief Complaint: AMS History of Present Illness - Admitted From Admitted From:: ER - History Obtained From Records Reviewed: Yes History obtained from: Staff, chart Exam Limitations: Virtual exam - History of Present Illness HPI Comment/Other: H&P was conducted via video remotely, using Access Cart. [place] CLINICAL LEADER at bedside. Unable to obtain history from pt d/t pt's clinical condition. History obtained from staff, chart. 83 yo M with PMH of COPD, LONNIE on CPAP, CAD, Anxiety, Hearing loss, DJD, Psoriasis, BPH, GERD presented to the ER for c/o 2 hour h/o AMS. Pt's had reported that pt had Dental procedure: root canal that took 4 hours today. About 2 hours after returning home, his noted that he seemed confused with increased global weakness and possibly had slurred speech. Pt responds to his name when called, but does not give his name when asked. He has been mumbling in the ER, but it has been difficult to understand. Pt's had denied any head injuries. She had reported that pt is alert and coherent at baseline. No narcotic medication given for dental procedure per . Pt unable to answer questions about cough, SOB, F/C, etc. EMS reported normal glucose, high BP, no localized weakness, confusion. In the ER, BP 187/96, Hgb 12.2, MCV 26, Plt 119, Na 127-129, Glc 162, U/A neg, UDS neg, ETOH neg. CXR: large opacity R lung, small R pleural effusion CT Head: Hypoattenuation L frontoparietal region: possible prior infarct. Re commend MRI. CTA H/N: NAD, Mod stenosis R prox ICA 50% Pt was given IVF, Zofran in the ER. History - Past Medical History Cardiovascular: reports: High cholesterol, [place] Respiratory: reports: COPD, Sleep apnea, CPAP use Neuro: reports: None, Other Endocrine/Autoimmune: reports: None GI: reports: None : reports: None HEENT: reports: Chronic hearing loss Psych: reports: Anxiety Musculoskeletal: reports: Osteoarthritis Derm: reports: Psoriasis MRSA Hx?: No - Past Surgical History General: reports: Colonoscopy Ortho: reports: Knee replacement Cardiovascular: reports: Coronary stent, Lobectomy - Family & Social History Family History Comment/Other: He reports no significant family history to his knowledge. Living Situation: With spouse/s.o. Social History Notes: He normally resides at home with his . He has not smoked for 50 years. He will have 2 to 3 glasses of wine on a daily basis. - POLST Patient has POLST: No Meds/Allgy - Home Medications Home Medications: Ambulatory Orders Medication Instructions Recorded Confirmed Tamsulosin [Flomax] 0.4 mg PO DAILY PM 04/15/20 07/21/23 Aspirin EC [Ecotrin] 81 mg PO DAILY 05/09/20 07/21/23 Sertraline HCl [Zoloft] 100 mg PO DAILY 05/09/20 07/21/23 oxyBUTYnin chloride [Ditropan Xl] 10 mg PO DAILY 05/09/20 07/21/23 Omeprazole 1 tab PO DAILY 07/21/23 07/21/23 - Allergies Allergies/Adverse Reactions: Allergies Allergy/AdvReac Type Severity Reaction Status Date / Time No Known Drug Allergies Allergy Verified 07/21/23 20:33 Review of Systems - All Other Systems All Other Systems: reports: Other (Unable to obtain d/t patient's clinical condition) Exam - Vital Signs Reviewed Vital Signs: Yes Vital Signs: Vital Signs x48h Temp Pulse Resp BP Pulse Ox 07/21/23 23:30 100 22 179/108 H 93 07/21/23 23:00 94 22 181/113 H 07/21/23 22:30 94 20 190/105 H 07/21/23 22:03 99 20 170/102 H 93 07/21/23 20:27 35.8 C L 87 20 187/96 H 97 - Physical Exam General Appearance: positive: No acute distress, Alert Eyes Bilateral: positive: No scleral icterus ENT: positive: Dry mucous membranes, Other (per ER Provider: poor dentition) Respiratory: positive: Other ( Access cart stethoscope not working; per ER Provider: CTA B/L) Cardiovascular: positive: Other (Access cart stethoscope not working; per ER Provider: RRR, no murmurs) Abdomen: positive: Other (per ER Provider: non-distended, NT, Soft) Extremities: positive: Pedal edema (per ER Provider: moves all extrem, trace edema B/L LE) Neurologic/Psychiatric: positive: Disoriented to person, Disoriented to place, Disoriented to time, Other (per ER Provider: Moving all 4 extremities. No obvious cranial nerve deficits. Patient is awake and responds to his name being said but cannot tell us his name. Articulation intact.) Conclusion/Plan - Problem List (1) Altered mental status Conclusion/Plan: AMS Weakness -U/A neg, UDS neg, ETOH neg. -CT Head: Hypoattenuation L frontoparietal region: possible prior infarct. Recommend MRI. -CTA H/N: NAD, Mod stenosis R prox ICA 50% -Pt was given IVF, Zofran in the ER. -admit to Observation with tele -continue Eval for CVA -symptoms most likely d/t Pneumonia -ASA 325 mg now, then daily 81 mg ASA -permissive HTN x 48 hrs -neuro checks -bedside swallow -NPO until bedside swallow done/passed -IVF -MRI ordered, Echo ordered -PT/OT consulted -check Lipids, TSH, Hgba1c Pneumonia R lung -CXR: large opacity R lung, small R pleural effusion -s/p dental procedure; pt at high risk for aspiration PNA; will tx with Unasyn -O2 support PRN Dehydration Hyponatremia -Na 127-129 -continue IVF -check Na level q4 hrs to ensure not correcting too quickly High BP CAD -BP 187/96 -permissive HTN x 48 hrs Hyperglycemia -Glc 162 -possibly d/t infection -check Hgba1c Anemia, microcytic Thrombocytopenia -Hgb 12.2, MCV 26, Plt 119 -check iron studies COPD -Duonebs PRN LONNIE on CPAP -continue CPAP Anxiety -continue home medications: Zoloft Hearing loss -supportive care BPH -continue home medications: Flomax GERD -continue home medications: PPI VTE Prophylaxis: SCDs d/t Thrombocytopenia Code Status: unable to D/W pt d/t AMS; presumed Full Code ~Miguelina Bhatia MD Hospitalist Qualifiers: Altered mental status type: delirium Qualified Code(s): R41.0 - Disorientation, unspecified - Lab Results Fish Bones: 07/21/23 20:18 07/21/23 20:18
[2023-07-22] MEDS ORDERED: ONDANSETRON 4 MG/2 ML VIAL IVP PRN (00:41)
[2023-07-22] MEDS ORDERED: cefTRIAXone 2 GM VIAL ONE (00:45)
--- NOTE | 2023-07-22 00:46 | XRAY Report ---
PROCEDURE: Chest 1V INDICATIONS: productive cough TECHNIQUE: One view of the chest was acquired. COMPARISON: 10/26/2020. FINDINGS: Surgical changes and devices: None. Lungs and pleura: No pleural effusions or pneumothorax. Large opacity within the right lung, predomi nantly involving the mid and lower lung miller. Mediastinum: Mediastinal contours appear normal. Heart size is normal. Bones and chest wall: No suspicious bony lesions. Overlying soft tissues appear unremarkable. IMPRESSION: Large opacity in the right lung. Small right pleural effusion. Findings may represent infection. Krzysztof mmend follow-up radiographs to resolution. Reviewed by: John Butts MD on 07/22/2023 12:45 AM PDT Approved by: John Butts MD on 07/22/2023 12:45 AM PDT Station ID: [id number]
[2023-07-22] MEDS: cefTRIAXone 2 GM in SODIUM CHLORIDE 0.9% MINIBAG 100 ML IV STA (00:47)
[2023-07-22] MEDS ORDERED: HALOPERIDOL 5 MG/ML VIAL IM PRN (00:48)
[2023-07-22] MEDS: CLINDAMYCIN 900 MG/50 ML 900 MG/50 ML BAG IV ONE (00:57)
[2023-07-22] MEDS ORDERED: IPRATROPIUM/ALBUTEROL 3 ML NEB INH PRN (01:23)
[2023-07-22] MEDS: AZITHROMYCIN INJ 500 MG in SODIUM CHLORIDE 0.9% 250 ML IV STA (01:38)
[2023-07-22] MEDS: AMPICILLIN/SULBACTAM 3 GM in SODIUM CHLORIDE 0.9% MINIBAG 100 ML IV SCH (02:15)
[2023-07-22] MEDS: SODIUM CHLORIDE FLUSH 0.9% 10 ML SYRINGE IVP PRN (02:16)
[2023-07-22] MEDS: SODIUM CHLORIDE 0.9% 1,000 ML IV SCH (02:17)
[2023-07-22] MEDS: ASPIRIN CHEW 81 MG TABLET PO SCH (05:53)
[2023-07-22] MEDS: SODIUM CHLORIDE FLUSH 0.9% 10 ML SYRINGE IVP SCH (05:53)
[2023-07-22] MEDS: TAMSULOSIN 0.4 MG CAPSULE PO SCH (05:54)
[2023-07-22 06:09] LABS: BASOPHILS % (AUTO) 0.1 %; EOSINOPHILS % (AUTO) 0.1 %; HCT - HEMATOCRIT 38.4 % (42.0-52.0); HGB - HEMOGLOBIN 12.5 g/dL (14.0-18.0); LYMPHOCYTES # (AUTO) 0.5 10^3/uL (1.5-3.5); LYMPHOCYTES % (AUTO) 5.2 %; MEAN CORPUSCULAR HEMOGLOBIN 26.2 pg (27.0-31.0); MEAN CORPUSCULAR HGB CONC 32.6 g/dL (32.0-36.0); MEAN CORPUSCULAR VOLUME 80.5 fL (80.0-94.0); MEAN PLATELET VOLUME 10.7 fL (7.4-11.4); MONOCYTES # (AUTO) 0.4 10^3/uL (0.0-1.0); MONOCYTES % (AUTO) 4.3 %; NEUTROPHILS # (AUTO) 9.3 10^3/uL (1.5-6.6); NEUTROPHILS % (AUTO) 89.8 %; PLT - PLATELET COUNT 181 10^3/uL (130-450); RED BLOOD COUNT 4.77 10^6/uL (4.70-6.10); RED CELL DISTRIBUTION WIDTH 14.3 % (12.0-15.0); WHITE BLOOD COUNT 10.3 x10^3/uL (4.8-10.8)
[2023-07-22 06:19] LABS: % IRON SATURATION 9 % (20-50); CHOL/HDL RATIO 2.3 (<5.0); CHOLESTEROL 198 mg/dL; HDL CHOLESTEROL 87 mg/dL; IRON 49 ug/dL (50-212); LDL CHOLESTEROL,CALCULATED 99 mg/dL; LDL/HDL RATIO 1.1 (<3.6); TOTAL IRON BINDING CAPACITY 540 ug/dL (250-450); TRANSFERRIN 386 mg/dL (203-362); TRIGLYCERIDES 60 mg/dL (48-352); VLDL CHOLESTEROL 12 mg/dL
[2023-07-22 06:20] LABS: CALCIUM 9.4 mg/dL (8.5-10.3); CREATININE 0.7 mg/dL (0.6-1.3); POTASSIUM 3.9 mmol/L (3.5-4.5)
[2023-07-22 06:25] LABS: MAGNESIUM 0.8 mg/dL (1.7-2.3)
[2023-07-22 06:34] LABS: THYROID STIMULATING HORMONE 1.74 uIU/mL (0.34-5.60)
[2023-07-22] MEDS: MAGNESIUM SULFATE 2 GRAM 2 GM/50 ML BAG IV ONE (07:52)
[2023-07-22 10:08] LABS: ESTIMATED AVERAGE GLUCOSE 111 mg/dL (70-100); HEMOGLOBIN A1c% 5.5 % (4.27-6.07)
--- NOTE | 2023-07-22 10:09 | PHARMACY PROGRESS NOTE ---
- Best Possible Medication History Admit Date and Time: 07/22/23 0041 Processed by: Nursing Medications reviewed in ED?: Yes Medication History completed: Yes Patient Interview: Pt unable to participate Secondary Source(s): Spouse/Significant other, Insurance records As the person ultimately responsible for medication therapy, providers are able to order a medication from an existing home medication list in [facility] via the "Reconcile Routine" prior to Confirmation of that medication by product support representative. Such practice is discouraged except when the physician, in their clinical judgment, deems that a medical need exists for a medication without regard to previous use.
--- NOTE | 2023-07-22 10:31 | PROVIDER PROGRESS NOTE ---
Assessment/Plan - Problem List (1) Altered mental status Qualifiers: Altered mental status type: delirium Qualified Code(s): R41.0 - Disorientation, unspecified Assessment/Plan: --CT showing evidence of encephalomalacia. acute CVA cannot be ruled out. MRI is pending. --CTA showing no evidence of critical stenosis. --Started on aspirin 81 mg daily along with Plavix and atorvastatin. --Speech therapy, Occupational Therapy, and physical therapy ordered. (2) Pneumonia Assessment/Plan: -- There are some concern for aspiration. Continue patient on IV antibiotics with Unasyn. - Current Meds Current Meds: Current Medications Generic Name Dose Route Start Last Admin Trade Name Freq PRN Reason Stop Dose Admin Aspirin 324 mg 07/22/23 01:00 07/22/23 05:53 Aspirin Chew 81 Mg Tablet PO 07/23/23 00:59 Not Given ONCE MAGI Sodium Chloride 1,000 mls @ 100 mls/hr 07/22/23 01:00 07/22/23 06:57 Normal Saline 0.9% IV 100 mls/hr .Q10H MAGI Infusion Ampicillin Sodium/Sulbactam 100 mls @ 200 mls/hr 07/22/23 02:00 07/22/23 02:50 Sodium 3 gm/ Sodium Chloride IV Infused Q6H MAGI Infusion Sodium Chloride 10 ml 07/22/23 00:41 07/22/23 02:16 Sodium Chloride Flush 0.9% 10 Ml Syringe IVP 10 ml PRN PRN Administration NEEDED PER PROVIDER ORDERS Sodium Chloride 10 ml 07/22/23 01:00 07/22/23 05:53 Sodium Chloride Flush 0.9% 10 Ml Syringe IVP Not Given 0100,0900,1700 MAGI Tamsulosin HCl 0.4 mg 07/22/23 02:00 07/22/23 05:54 Tamsulosin 0.4 Mg Capsule PO Not Given HS MAGI - Lab Result Fish Bone Diagrams: 07/22/23 06:03 07/22/23 09:20 - Additional Planning My Orders: My Active Orders 07/22/23 Clinical Swallow Evaluation [ST] Routine 07/22/23 09:00 Clopidogrel [Plavix] 75 mg PO DAILY 07/22/23 09:24 Straight Catheter Insertion [RC] ONCE 07/22/23 09:26 LORazepam INJ [Ativan Inj (Vial)] 1 mg IVP Q2H PRN 07/22/23 10:25 Admit \ Transfer \ Status [RC] .ONCE 07/22/23 10:28 UA w/ MICROSCOPIC, CULT IF [URIN] Routine 07/22/23 21:00 Atorvastatin [Lipitor] 40 mg PO QPM Subjective - Subjective Patient Reports: Other ( Remains encephalopathic. MRI is pending. He is n.p.o. due to concern for aspiration.) Objective Vital Signs: Vital Signs - 24 hr 07/21/23 07/21/23 07/21/23 20:27 22:03 22:30 Temperature 35.8 C L Heart Rate 87 99 94 Respiratory 20 20 20 Rate Blood Pressure 187/96 H 170/102 H 190/105 H Blood Pressure [Right Brachial artery] O2 Saturation 97 93 07/21/23 07/21/23 07/22/23 23:00 23:30 00:30 Temperature Heart Rate 94 100 98 Respiratory 22 22 Rate Blood Pressure 181/113 H 179/108 H 170/94 H Blood Pressure [Right Brachial artery] O2 Saturation 93 95 07/22/23 07/22/23 07/22/23 01:00 01:30 02:32 Temperature 36.5 C 36.5 C Heart Rate 99 101 H Respiratory 22 25 H 24 Rate Blood Pressure 187/97 H 171/100 H Blood Pressure 169/91 H [Right Brachial artery] O2 Saturation 93 92 97 07/22/23 07:29 Temperature 37.1 C Heart Rate Respiratory 22 Rate Blood Pressure Blood Pressure 160/98 H [Right Brachial artery] O2 Saturation 95 Oxygen O2 Source Room air I&O (Last 24 Hrs): Intake and Output Totals x24h 07/20/23 07/21/23 07/22/23 23:59 23:59 23:59 Intake Total 966.667 Output Total 1400 Balance -433.333 Neuro: Disoriented Cardiovascular: Regular rate, Normal S1, Normal S2 Respiratory: No respiratory distress, Breath sounds nml Abdomen: Normal bowel sounds, Soft - Results Results: Laboratory Results WBC 10.3 x10^3/uL (4.8-10.8) 07/22/23 06:03 RBC 4.77 10^6/uL (4.70-6.10) 07/22/23 06:03 Hgb 12.5 g/dL (14.0-18.0) L 07/22/23 06:03 Hct 38.4 % (42.0-52.0) L 07/22/23 06:03 MCV 80.5 fL (80.0-94.0) 07/22/23 06:03 MCH 26.2 pg (27.0-31.0) L 07/22/23 06:03 MCHC 32.6 g/dL (32.0-36.0) 07/22/23 06:03 RDW 14.3 % (12.0-15.0) 07/22/23 06:03 Plt Count 181 10^3/uL (130-450) 07/22/23 06:03 MPV 10.7 fL (7.4-11.4) 07/22/23 06:03 Neut # (Auto) 9.3 10^3/uL (1.5-6.6) H 07/22/23 06:03 Lymph # (Auto) 0.5 10^3/uL (1.5-3.5) L 07/22/23 06:03 [place] # (Auto) 0.4 10^3/uL (0.0-1.0) 07/22/23 06:03 Eos # (Auto) 0.0 10^3/uL (0.0-0.7) 07/22/23 06:03 Baso # (Auto) 0.0 10^3/uL (0.0-0.1) 07/22/23 06:03 Absolute Nucleated RBC 0.00 x10^3/uL 07/22/23 06:03 Nucleated RBC % 0.0 /100WBC 07/22/23 06:03 Sodium 124 mmol/L (135-145) L 07/22/23 09:20 Potassium 3.9 mmol/L (3.5-4.5) 07/22/23 06:03 Chloride 92 mmol/L (101-111) L 07/22/23 06:03 Carbon Dioxide 22 mmol/L (21-32) 07/22/23 06:03 Anion Gap 12.0 (6-13) 07/22/23 06:03 BUN 10 mg/dL (6-20) 07/22/23 06:03 Creatinine 0.7 mg/dL (0.6-1.3) 07/22/23 06:03 Estimated GFR (MDRD) 107 (>89) 07/22/23 06:03 Glucose 147 mg/dL (74-104) H 07/22/23 06:03 Calcium 9.4 mg/dL (8.5-10.3) 07/22/23 06:03 Magnesium 0.8 mg/dL (1.7-2.3) L* 07/22/23 06:03 Iron 49 ug/dL (50-212) L 07/22/23 06:03 TIBC 540 ug/dL (250-450) H 07/22/23 06:03 % Saturation 9 % (20-50) L 07/22/23 06:03 Transferrin 386 mg/dL (203-362) H 07/22/23 06:03 Total Bilirubin 0.8 mg/dL (0.2-1.0) 07/21/23 20:18 AST 17 IU/L (10-42) 07/21/23 20:18 ALT 8 IU/L (10-60) L 07/21/23 20:18 Alkaline Phosphatase 56 IU/L (42-121) 07/21/23 20:18 Ammonia 14.4 umol/L (18-72) L 07/21/23 20:34 Troponin I High Sens 9.6 ng/L (2.3-19.7) 07/21/23 20:18 Total Protein 7.7 g/dL (6.4-8.9) 07/21/23 20:18 Albumin 4.7 g/dL (3.2-5.5) 07/21/23 20:18 Globulin 3.0 g/dL (2.1-4.2) 07/21/23 20:18 Albumin/Globulin Ratio 1.6 (1.0-2.2) 07/21/23 20:18 Triglycerides 60 mg/dL (48-352) 07/22/23 06:03 Cholesterol 198 mg/dL (-200) 07/22/23 06:03 LDL Cholesterol, Calc 99 mg/dL (-129) 07/22/23 06:03 VLDL Cholesterol 12 mg/dL 07/22/23 06:03 HDL Cholesterol 87 mg/dL (60-) 07/22/23 06:03 LDL/HDL Ratio 1.1 (<3.6) 07/22/23 06:03 Cholesterol/HDL Ratio 2.3 (<5.0) 07/22/23 06:03 Lipase < 10 U/L (11-82) L 07/21/23 20:18 TSH 1.74 uIU/mL (0.34-5.60) 07/22/23 06:03 Urine Color YELLOW 07/21/23 20:55 Urine Clarity CLEAR (CLEAR) 07/21/23 20: Urine pH 6.5 PH (5.0-7.5) 07/21/23 20:55 Ur Specific [place] 1.020 (1.002-1.030) 07/21/23 20: Urine Protein 30 mg/dL (NEGATIVE) H 07/21/23 20:55 Urine Glucose (UA) 100 mg/dL (NEGATIVE) H 07/21/23 20: Urine Ketones 15 mg/dL (NEGATIVE) H 07/21/23 20:55 Urine Occult Blood TRACE-INTA (NEGATIVE) 07/21/23 20: Urine Nitrite NEGATIVE (NEGATIVE) 07/21/23 20: Urine Bilirubin NEGATIVE (NEGATIVE) 07/21/23 20: Urine Urobilinogen 0.2 (NORMAL) E.U./dL (NORMAL) 07/21/23 20:55 Ur Leukocyte Esterase NEGATIVE (NEGATIVE) 07/21/23 20: Urine RBC 0-5 /HPF (0-5) 07/21/23 20:55 Urine WBC 0-3 /HPF (0-3) 07/21/23 20:55 Ur Squamous Epith Cells NONE SEEN (<= Few) 07/21/23 20: Urine Bacteria None Seen /HPF (None Seen) 07/21/23 20:55 Ur Microscopic Review INDICATED 07/21/23 20:55 Urine Culture Comments NOT INDICATED 07/21/23 20:55 Urine Opiates Screen NEGATIVE (NEGATIVE) 07/21/23 20: Ur Buprenorphine Scrn NEGATIVE (NEGATIVE) 07/21/23 20:55 Ur Oxycodone Screen NEGATIVE (NEGATIVE) 07/21/23 20:55 Urine Methadone Screen NEGATIVE (NEGATIVE) 07/21/23 20:55 Ur Barbiturates Screen NEGATIVE (NEGATIVE) 07/21/23 20:55 Ur Tricyclics Screen NEGATIVE (NEGATIVE) 07/21/23 20: Ur Phencyclidine Scrn NEGATIVE (NEGATIVE) 07/21/23 20:55 Ur Amphetamine Screen NEGATIVE (NEGATIVE) 07/21/23 20:55 U Methamphetamines Scrn NEGATIVE (NEGATIVE) 07/21/23 20:55 U Benzodiazepines Scrn NEGATIVE (NEGATIVE) 07/21/23 20:55 Urine Cocaine Screen NEGATIVE (NEGATIVE) 07/21/23 20:55 U Cannabinoids Screen NEGATIVE (NEGATIVE) 07/21/23 20:55 Ur Drug Screen Comment CUTOFF CONC BELOW: 07/21/23 20:55 Ethyl Alcohol < 10.0 mg/dL 07/21/23 20:18 - Procedures Procedures: Procedures (04/16/20) (04/16/20) DRAINAGE OF BUTTOCK SUBCU/FASCIA, OPEN APPROACH (05/08/20) DRAINAGE OF PERITONEAL CAVITY, OPEN APPROACH (04/16/20) EXCISION OF BACK SUBCU/FASCIA, OPEN APPROACH (05/08/20) EXCISION OF ILEUM, OPEN APPROACH (04/16/20) EXCISION OF LEFT HIP MUSCLE, OPEN APPROACH (05/08/20) INSERTION OF INFUSION DEV INTO SUP VENA CAVA, PERC APPROACH (05/08/20) INSERTION OF MONITORING DEVICE INTO LOW ART, PERC APPROACH (04/16/20) IRRIGATION OF PERITONEAL CAVITY USING IRRIGAT, PERC APPROACH (04/16/20) RELEASE SMALL INTESTINE, OPEN APPROACH (04/16/20) REPAIR ABDOMINAL WALL, EXTERNAL APPROACH (04/16/20) REPAIR ABDOMINAL WALL, OPEN APPROACH (04/16/20) REPAIR MESENTERY, OPEN APPROACH (04/16/20) RESECTION OF APPENDIX, OPEN APPROACH (04/16/20) RESPIRATORY VENTILATION, 24-96 CONSECUTIVE HOURS (04/16/20) TOTAL KNEE REPLACEMENT (11/30/12)
[2023-07-22 10:40] LABS: BILIRUBIN,URINE NEGATIVE (NEGATIVE); GLUCOSE, URINE (UA) 250 mg/dL (NEGATIVE); KETONES,URINE (UA) 15 mg/dL (NEGATIVE); LEUKOCYTE ESTERASE, URINE NEGATIVE (NEGATIVE); NITRITE,URINE NEGATIVE (NEGATIVE); OCCULT BLOOD,URINE SMALL (NEGATIVE); PH,URINE 6.5 PH (5.0-7.5); PROTEIN,URINE 100 mg/dL (NEGATIVE); UROBILINOGEN,URINE 0.2 (NORMAL) E.U./dL (NORMAL)
[2023-07-22 10:48] LABS: CLARITY,URINE CLEAR (CLEAR)
[2023-07-22 10:52] LABS: WBC,URINE 0-3 /HPF (0-3)
[2023-07-22 10:53] LABS: WBC CLUMPS,URINE PRESENT
[2023-07-22 10:54] LABS: BACTERIA,URINE Few /HPF (None Seen); SQUAMOUS EPITHELIAL CELL,UR RARE Squamous (<= Few)
[2023-07-22] MEDS: HALOPERIDOL 5 MG/ML VIAL IM ONE (11:15)
[2023-07-22] MEDS: LORazepam 2 MG/ML VIAL IVP PRN (11:34)
--- NOTE | 2023-07-22 13:08 | MRI Report ---
PROCEDURE: Brain WO INDICATIONS: AMS TECHNIQUE: Noncontrast axial T1 spin echo, axial T2 fast spin echo, sagittal and axial FLAIR, coronal T2 fast sp in echo, axial gradient echo, axial diffusion and ADC through the brain. COMPARISON: Correlation is made with CT, 07/21/2023. FINDINGS: Image quality: Motion artifact is noted. CSF Spaces: Basal cisterns are patent. No extra-axial fluid collections. Ventricles are normal in size and shape. Brain: No intracranial masses or hemorrhage. [place]/white matter interface is normal. Brainstem appe ars normal. Diffusion-weighted images demonstrate no acute ischemic insult. Normal intravascular fl ow voids are present. Age-appropriate brain parenchymal volume loss and chronic small vessel ischemi c change can be seen. There is a remote infarction seen involving the posterior aspect of the right cerebral hemisphere, with volume loss and encephalomalacia. Skull and face: Calvarium has normal marrow signal. Orbits appear normal. Incidental note is made of bilateral lens replacements. Sinuses: Sinuses and mastoids are clear. IMPRESSION: No findings of acute or subacute infarction are seen. 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 Motion limited study. Reviewed by: Efra Kessler MD on 07/22/2023 12:06 PM [facility] Approved by: Efra Kessler MD on 07/22/2023 12:06 PM [facility] Station ID: [id number]
[2023-07-22] MEDS: ASPIRIN EC 81 MG TABLET PO SCH (14:43)
[2023-07-22] MEDS: PANTOPRAZOLE 40 MG TABLET PO SCH (14:43)
[2023-07-22] MEDS: SERTRALINE 50 MG TABLET PO SCH (14:43)
[2023-07-22] MEDS: CLOPIDOGREL 75 MG TABLET PO SCH (14:43)
[2023-07-22] MEDS: SOLIFENACIN SUCCINATE 5 MG TABLET PO SCH (14:43)
[2023-07-22] MEDS: IRON DEXTRAN 1,000 MG in SODIUM CHLORIDE 0.9% 250 ML IV ONE (17:49)
[2023-07-22] MEDS: ATORVASTATIN 40 MG TABLET PO SCH (21:08)
[2023-07-22] MEDS: MUPIROCIN 2% OINT 22 GM TUBE TOP SCH (21:59)
[2023-07-23 05:14] LABS: BASOPHILS % (AUTO) 0.2 %; EOSINOPHILS % (AUTO) 0.1 %; HCT - HEMATOCRIT 37.8 % (42.0-52.0); HGB - HEMOGLOBIN 12.3 g/dL (14.0-18.0); LYMPHOCYTES # (AUTO) 0.9 10^3/uL (1.5-3.5); MEAN CORPUSCULAR HEMOGLOBIN 26.4 pg (27.0-31.0); MEAN CORPUSCULAR HGB CONC 32.5 g/dL (32.0-36.0); MEAN CORPUSCULAR VOLUME 81.1 fL (80.0-94.0); MEAN PLATELET VOLUME 10.3 fL (7.4-11.4); MONOCYTES # (AUTO) 0.8 10^3/uL (0.0-1.0); MONOCYTES % (AUTO) 6.8 %; NEUTROPHILS # (AUTO) 9.4 10^3/uL (1.5-6.6); NEUTROPHILS % (AUTO) 84.4 %; PLT - PLATELET COUNT 146 10^3/uL (130-450); RED BLOOD COUNT 4.66 10^6/uL (4.70-6.10); RED CELL DISTRIBUTION WIDTH 14.4 % (12.0-15.0); WHITE BLOOD COUNT 11.1 x10^3/uL (4.8-10.8)
[2023-07-23 05:39] LABS: CALCIUM 9.2 mg/dL (8.5-10.3); CREATININE 0.6 mg/dL (0.6-1.3); MAGNESIUM 1.3 mg/dL (1.7-2.3); POTASSIUM 3.4 mmol/L (3.5-4.5)
[2023-07-23] MEDS: POTASSIUM CHLOR 10 MEQ/100 ML 10 MEQ/100 ML BAG IV ONE (08:14)
[2023-07-23] MEDS: MAGNESIUM SULFATE 2 GRAM 2 GM/50 ML BAG IV ONE (08:15)
[2023-07-23] MEDS: amLODIPine 5 MG TABLET PO SCH (08:16)
--- NOTE | 2023-07-23 09:20 | PROVIDER PROGRESS NOTE ---
Assessment/Plan - Problem List (1) Altered mental status Qualifiers: Altered mental status type: delirium Qualified Code(s): R41.0 - Disorientation, unspecified Assessment/Plan: (1) Altered mental status Qualifiers: Altered mental status type: delirium Qualified Code(s): R41.0 - Disorientat ion, unspecified Assessment/Plan: --MRI does not show evidence of acute CVA. Will discontinue DAPT and Atorvastatin. --AMS has improved overnight. I believe underlying etiology is right sided PNA. --Repleating all electrolytes. --He did pass his nursing bedside swallow this AM. 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 Will advance him to puree diet and observe today. (2) Pneumonia Assessment/Plan: -- There are some concern for aspiration. Continue patient on IV antibiotics with Unasyn. He is responding well to antibiotics. - Current Meds Current Meds: Current Medications Generic Name Dose Route Start Last Admin Trade Name Freq PRN Reason Stop Dose Admin Amlodipine Besylate 5 mg 07/23/23 09:00 07/23/23 08:16 Amlodipine 5 Mg Tablet PO 5 mg DAILY MAGI Administration Ampicillin Sodium/Sulbactam 100 mls @ 200 mls/hr 07/22/23 02:00 07/23/23 01:51 Sodium 3 gm/ Sodium Chloride IV Infused Q6H MAGI Infusion Lorazepam 1 mg 07/22/23 09:26 07/22/23 19:49 Lorazepam 2 Mg/Ml Vial IVP 1 mg Q2H PRN Administration Anxiety Mupirocin 1 applic 07/22/23 21:00 07/23/23 08:15 Mupirocin 2% Oint 22 Gm Tube TOP 1 applic BID MAGI Administration Pantoprazole Sodium 40 mg 07/22/23 09:00 07/23/23 08:16 Pantoprazole 40 Mg Tablet PO 40 mg DAILY MAGI Administration Sertraline HCl 100 mg 07/22/23 09:00 07/23/23 08:16 Sertraline 50 Mg Tablet PO 100 mg DAILY MAGI Administration Sodium Chloride 10 ml 07/22/23 00:41 07/22/23 02:16 Sodium Chloride Flush 0.9% 10 Ml Syringe IVP 10 ml PRN PRN Administration NEEDED PER PROVIDER ORDERS Sodium Chloride 10 ml 07/22/23 01:00 07/23/23 08:16 Sodium Chloride Flush 0.9% 10 Ml Syringe IVP 10 ml 0100,0900,1700 MAGI Administration Solifenacin 10 mg 07/22/23 09:00 07/23/23 08:15 Solifenacin Succinate 5 Mg Tablet PO 10 mg DAILY MAGI Administration Tamsulosin HCl 0.4 mg 07/22/23 02:00 07/22/23 21:09 Tamsulosin 0.4 Mg Capsule PO Not Given HS MAGI - Lab Result Fish Bone Diagrams: 07/23/23 04:44 07/23/23 04:44 - Additional Planning My Orders: My Active Orders 07/22/23 09:24 Straight Catheter Insertion [RC] ONCE 07/22/23 09:26 LORazepam INJ [Ativan Inj (Vial)] 1 mg IVP Q2H PRN 07/22/23 13:12 Oxygen Desat. Study w/Exercise [RC] .ONCE 07/22/23 14:47 Gputa Insertion [RC] QSHIFT 07/22/23 14:59 Blood Culture [CULTURE, BLOOD #1] [RM] Routine 07/22/23 15:09 Blood Culture [CULTURE, BLOOD #2] [RM] Routine 07/22/23 21:00 Mupirocin 2% Oint [Bactroban 2% Oint] 1 applic TOP BID 07/23/23 07:18 Telemetry (24 Hour) [] Q4HR 07/23/23 07:56 D5ns W/20 Meq KCl 1,000 ml IV 100 mls/hr 07/23/23 09:00 amLODIPine [Norvasc] 5 mg PO DAILY 07/23/23 Lunch Dysphagia - Puree [DIET] Subjective - Subjective Patient Reports: Feeling Better, Resting Comfortably, No Complaints Objective Vital Signs: Vital Signs - 24 hr 07/22/23 07/22/23 07/22/23 11:18 13:12 14:06 Temperature 36.7 C Heart Rate 90 Heart Rate [ 78 Brachial] Heart Rate [ 63 Supine] Respiratory 22 Rate Blood Pressure 170/91 H [Right Brachial artery] Blood Pressure 131/81 H [Sitting] Blood Pressure 100/60 [Standing] Blood Pressure 162/80 H [Supine] O2 Saturation 95 O2 Saturation [ 95 Supine] 07/22/23 07/22/23 07/22/23 14:15 16:14 21:00 Temperature 37.0 C 36.6 C Heart Rate Heart Rate [ 74 73 Brachial] Heart Rate [ 63 Supine] Respiratory 22 21 Rate Blood Pressure 154/87 H 154/88 H [Right Brachial artery] Blood Pressure 131/81 H [Sitting] Blood Pressure 100/60 [Standing] Blood Pressure 162/80 H [Supine] O2 Saturation 96 95 O2 Saturation [ Supine] 07/22/23 07/22/23 07/23/23 23:35 23:57 00:04 Temperature 36.6 C Heart Rate Heart Rate [ 78 82 Brachial] Heart Rate [ Supine] Respiratory 20 Rate Blood Pressure 155/93 H 173/83 H 165/87 H [Right Brachial artery] Blood Pressure [Sitting] Blood Pressure [Standing] Blood Pressure [Supine] O2 Saturation 95 O2 Saturation [ Supine] 07/23/23 07/23/23 07/23/23 00:08 05:36 07:30 Temperature 36.5 C 36.3 C L Heart Rate Heart Rate [ 67 80 Brachial] Heart Rate [ Supine] Respiratory 20 18 Rate Blood Pressure 158/95 H 156/94 H 163/93 H [Right Brachial artery] Blood Pressure [Sitting] Blood Pressure [Standing] Blood Pressure [Supine] O2 Saturation 94 93 O2 Saturation [ Supine] Oxygen O2 Source Room air I&O (Last 24 Hrs): Intake and Output Totals x24h 07/21/23 07/22/23 07/23/23 23:59 23:59 23:59 Intake Total 3020.000 1100.000 Output Total 4400 850 Balance -1380.000 250.000 Cardiovascular: Regular rate, Normal S1, Normal S2, No murmurs Respiratory: Chest non-tender, No respiratory distress, Breath sounds nml - Results Results: Laboratory Results WBC 11.1 x10^3/uL (4.8-10.8) H 07/23/23 04:44 RBC 4.66 10^6/uL (4.70-6.10) L 07/23/23 04:44 Hgb 12.3 g/dL (14.0-18.0) L 07/23/23 04:44 Hct 37.8 % (42.0-52.0) L 07/23/23 04:44 MCV 81.1 fL (80.0-94.0) 07/23/23 04:44 MCH 26.4 pg (27.0-31.0) L 07/23/23 04:44 MCHC 32.5 g/dL (32.0-36.0) 07/23/23 04:44 RDW 14.4 % (12.0-15.0) 07/23/23 04:44 Plt Count 146 10^3/uL (130-450) 07/23/23 04:44 MPV 10.3 fL (7.4-11.4) 07/23/23 04:44 Neut # (Auto) 9.4 10^3/uL (1.5-6.6) H 07/23/23 04:44 Lymph # (Auto) 0.9 10^3/uL (1.5-3.5) L 07/23/23 04:44 [place] # (Auto) 0.8 10^3/uL (0.0-1.0) 07/23/23 04:44 Eos # (Auto) 0.0 10^3/uL (0.0-0.7) 07/23/23 04:44 Baso # (Auto) 0.0 10^3/uL (0.0-0.1) 07/23/23 04:44 Absolute Nucleated RBC 0.00 x10^3/uL 07/23/23 04:44 Nucleated RBC % 0.0 /100WBC 07/23/23 04:44 Sodium 127 mmol/L (135-145) L 07/23/23 04:44 Potassium 3.4 mmol/L (3.5-4.5) L 07/23/23 04:44 Chloride 94 mmol/L (101-111) L 07/23/23 04:44 Carbon Dioxide 25 mmol/L (21-32) 07/23/23 04:44 Anion Gap 8.0 (6-13) 07/23/23 04:44 BUN 13 mg/dL (6-20) 07/23/23 04:44 Creatinine 0.6 mg/dL (0.6-1.3) 07/23/23 04:44 Estimated GFR (MDRD) 128 (>89) 07/23/23 04:44 Glucose 113 mg/dL (74-104) H 07/23/23 04:44 Estimat Average Glucose 111 mg/dL (70-100) H 07/22/23 06:03 Hemoglobin A1c % 5.5 % (4.27-6.07) 07/22/23 06:03 Calcium 9.2 mg/dL (8.5-10.3) 07/23/23 04:44 Magnesium 1.3 mg/dL (1.7-2.3) L 07/23/23 04:44 Iron 49 ug/dL (50-212) L 07/22/23 06:03 TIBC 540 ug/dL (250-450) H 07/22/23 06:03 % Saturation 9 % (20-50) L 07/22/23 06:03 Transferrin 386 mg/dL (203-362) H 07/22/23 06:03 Total Bilirubin 0.8 mg/dL (0.2-1.0) 07/21/23 20:18 AST 17 IU/L (10-42) 07/21/23 20:18 ALT 8 IU/L (10-60) L 07/21/23 20:18 Alkaline Phosphatase 56 IU/L (42-121) 07/21/23 20:18 Ammonia 14.4 umol/L (18-72) L 07/21/23 20:34 Troponin I High Sens 9.6 ng/L (2.3-19.7) 07/21/23 20:18 Total Protein 7.7 g/dL (6.4-8.9) 07/21/23 20:18 Albumin 4.7 g/dL (3.2-5.5) 07/21/23 20:18 Globulin 3.0 g/dL (2.1-4.2) 07/21/23 20:18 Albumin/Globulin Ratio 1.6 (1.0-2.2) 07/21/23 20:18 Triglycerides 60 mg/dL (48-352) 07/22/23 06:03 Cholesterol 198 mg/dL (-200) 07/22/23 06:03 LDL Cholesterol, Calc 99 mg/dL (-129) 07/22/23 06:03 VLDL Cholesterol 12 mg/dL 07/22/23 06:03 HDL Cholesterol 87 mg/dL (60-) 07/22/23 06:03 LDL/HDL Ratio 1.1 (<3.6) 07/22/23 06:03 Cholesterol/HDL Ratio 2.3 (<5.0) 07/22/23 06:03 Lipase < 10 U/L (11-82) L 07/21/23 20:18 Vitamin B12 212 pg/mL (180-914) 07/22/23 13:19 TSH 1.74 uIU/mL (0.34-5.60) 07/22/23 06:03 Urine Color YELLOW 07/22/23 10:27 Urine Clarity CLEAR (CLEAR) 07/22/23 10:27 Urine pH 6.5 PH (5.0-7.5) 07/22/23 10:27 Ur Specific [place] 1.020 (1.002-1.030) 07/22/23 10:27 Urine Protein 100 mg/dL (NEGATIVE) H 07/22/23 10:27 Urine Glucose (UA) 250 mg/dL (NEGATIVE) H 07/22/23 10:27 Urine Ketones 15 mg/dL (NEGATIVE) H 07/22/23 10:27 Urine Occult Blood SMALL (NEGATIVE) H 07/22/23 10:27 Urine Nitrite NEGATIVE (NEGATIVE) 07/22/23 10:27 Urine Bilirubin NEGATIVE (NEGATIVE) 07/22/23 10:27 Urine Urobilinogen 0.2 (NORMAL) E.U./dL (NORMAL) 07/22/23 10:27 Ur Leukocyte Esterase NEGATIVE (NEGATIVE) 07/22/23 10:27 Urine RBC 6-10 /HPF (0-5) H 07/22/23 10:27 Urine WBC 0-3 /HPF (0-3) 07/22/23 10:27 Urine WBC Clumps PRESENT 07/22/23 10:27 Ur Squamous Epith Cells RARE Squamous (<= Few) 07/22/23 10:27 Urine Bacteria Few /HPF (None Seen) 07/22/23 10:27 Ur Microscopic Review INDICATED 07/21/23 20:55 Urine Culture Comments NOT INDICATED 07/22/23 10:27 Urine Opiates Screen NEGATIVE (NEGATIVE) 07/21/23 20:55 Ur Buprenorphine Scrn NEGATIVE (NEGATIVE) 07/21/23 20:55 Ur Oxycodone Screen NEGATIVE (NEGATIVE) 07/21/23 20:55 Urine Methadone Screen NEGATIVE (NEGATIVE) 07/21/23 20:55 Ur Barbiturates Screen NEGATIVE (NEGATIVE) 07/21/23 20:55 Ur Tricyclics Screen NEGATIVE (NEGATIVE) 04/15/24 20:55 Ur Phencyclidine Scrn NEGATIVE (NEGATIVE) 07/21/23 20:55 Ur Amphetamine Screen NEGATIVE (NEGATIVE) 07/21/23 20:55 U Methamphetamines Scrn NEGATIVE (NEGATIVE) 07/21/23 20:55 U Benzodiazepines Scrn NEGATIVE (NEGATIVE) 07/21/23 20:55 Urine Cocaine Screen NEGATIVE (NEGATIVE) 07/21/23 20:55 U Cannabinoids Screen NEGATIVE (NEGATIVE) 07/21/23 20:55 Ur Drug Screen Comment CUTOFF CONC BELOW: 07/21/23 20:55 Ethyl Alcohol < 10.0 mg/dL 07/21/23 20:18 - Procedures Procedures: Procedures (04/16/20) (04/16/20) DRAINAGE OF BUTTOCK SUBCU/FASCIA, OPEN APPROACH (05/08/20) DRAINAGE OF PERITONEAL CAVITY, OPEN APPROACH (04/16/20) EXCISION OF BACK SUBCU/FASCIA, OPEN APPROACH (05/08/20) EXCISION OF ILEUM, OPEN APPROACH (04/16/20) EXCISION OF LEFT HIP MUSCLE, OPEN APPROACH (05/08/20) INSERTION OF INFUSION DEV INTO SUP VENA CAVA, PERC APPROACH (05/08/20) INSERTION OF MONITORING DEVICE INTO LOW ART, PERC APPROACH (04/16/20) IRRIGATION OF PERITONEAL CAVITY USING IRRIGAT, PERC APPROACH (04/16/20) RELEASE SMALL INTESTINE, OPEN APPROACH (04/16/20) REPAIR ABDOMINAL WALL, EXTERNAL APPROACH (04/16/20) REPAIR ABDOMINAL WALL, OPEN APPROACH (04/16/20) REPAIR MESENTERY, OPEN APPROACH (04/16/20) RESECTION OF APPENDIX, OPEN APPROACH (04/16/20) RESPIRATORY VENTILATION, 24-96 CONSECUTIVE HOURS (04/16/20) TOTAL KNEE REPLACEMENT (11/30/12)
[2023-07-23] MEDS: D5NS W/20 MEQ KCL 1,000 ML IV STA (11:43)
[2023-07-23] MEDS: CHOLECALCIFEROL 25 MCG TABLET PO SCH (11:50)
[2023-07-23] MEDS: MULTIVITAMIN W/MINERALS TABLET PO SCH (11:50)
[2023-07-23] MEDS: CYANOCOBALAMIN 500 MCG TABLET PO SCH (11:51)
[2023-07-23] MEDS: CYANOCOBALAMIN 1,000 MCG/ML VIAL IM ONE (14:22)
[2023-07-24 05:40] LABS: BASOPHILS % (AUTO) 0.4 %; EOSINOPHILS # (AUTO) 0.1 10^3/uL (0.0-0.7); EOSINOPHILS % (AUTO) 0.9 %; HCT - HEMATOCRIT 35.4 % (42.0-52.0); HGB - HEMOGLOBIN 11.7 g/dL (14.0-18.0); LYMPHOCYTES # (AUTO) 1.1 10^3/uL (1.5-3.5); LYMPHOCYTES % (AUTO) 13.9 %; MEAN CORPUSCULAR HEMOGLOBIN 26.8 pg (27.0-31.0); MEAN CORPUSCULAR HGB CONC 33.1 g/dL (32.0-36.0); MONOCYTES # (AUTO) 0.6 10^3/uL (0.0-1.0); MONOCYTES % (AUTO) 7.2 %; NEUTROPHILS # (AUTO) 6.2 10^3/uL (1.5-6.6); NEUTROPHILS % (AUTO) 77.1 %; PLT - PLATELET COUNT 135 10^3/uL (130-450); RED BLOOD COUNT 4.37 10^6/uL (4.70-6.10); RED CELL DISTRIBUTION WIDTH 14.5 % (12.0-15.0); WHITE BLOOD COUNT 8.1 x10^3/uL (4.8-10.8)
[2023-07-24 05:49] LABS: CREATININE 0.6 mg/dL (0.6-1.3); MAGNESIUM 1.5 mg/dL (1.7-2.3); POTASSIUM 3.3 mmol/L (3.5-4.5)
--- NOTE | 2023-07-24 08:05 | PROVIDER PROGRESS NOTE ---
Assessment/Plan - Problem List (1) Altered mental status Qualifiers: Altered mental status type: delirium Qualified Code(s): R41.0 - Disorientation, unspecified Assessment/Plan: (1) Altered mental status Qualifiers: Altered mental status type: delirium Qualified Code(s): R41.0 - Disorientat ion, unspecified Assessment/Plan: --MRI does not show evidence of acute CVA. Will discontinue DAPT and Atorvastatin. --AMS has improved overnight. I believe underlying etiology is right sided PNA. --Repleating all electrolytes. --He did pass his nursing bedside swallow this AM. 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 Will advance him to puree diet and observe today. (2) Pneumonia Assessment/Plan: -- There are some concern for aspiration. Continue patient on IV antibiotics with Unasyn. He is responding well to antibiotics. Dispo: Anticipate DC in next 24-48 hours. - Current Meds Current Meds: Current Medications Generic Name Dose Route Start Last Admin Trade Name Freq PRN Reason Stop Dose Admin Amlodipine Besylate 5 mg 07/23/23 09:00 07/23/23 08:16 Amlodipine 5 Mg Tablet PO 5 mg DAILY MAGI Administration Cholecalciferol 50 mcg 07/23/23 12:00 07/23/23 11:50 Cholecalciferol 25 Mcg Tablet PO 50 mcg DAILY MAGI Administration Cyanocobalamin 500 mcg 07/23/23 12:00 07/23/23 11:51 Cyanocobalamin 500 Mcg Tablet PO 500 mcg DAILY MAGI Administration Ampicillin Sodium/Sulbactam 100 mls @ 200 mls/hr 07/22/23 02:00 07/24/23 02:21 Sodium 3 gm/ Sodium Chloride IV Infused Q6H MAGI Infusion Lorazepam 1 mg 07/22/23 09:26 07/23/23 14:22 Lorazepam 2 Mg/Ml Vial IVP 1 mg Q2H PRN Administration Anxiety Multivitamins/Minerals 1 tab 07/23/23 12:00 07/23/23 11:50 Multivitamin W/Minerals Tablet PO 1 tab DAILYWM MAGI Administration Mupirocin 1 applic 07/22/23 21:00 07/23/23 20:19 Mupirocin 2% Oint 22 Gm Tube TOP 1 applic BID MAGI Administration Pantoprazole Sodium 40 mg 07/22/23 09:00 07/23/23 08:16 Pantoprazole 40 Mg Tablet PO 40 mg DAILY MAGI Administration Sertraline HCl 100 mg 07/22/23 09:00 07/23/23 08:16 Sertraline 50 Mg Tablet PO 100 mg DAILY MAGI Administration Sodium Chloride 10 ml 07/22/23 00:41 07/22/23 02:16 Sodium Chloride Flush 0.9% 10 Ml Syringe IVP 10 ml PRN PRN Administration NEEDED PER PROVIDER ORDERS Sodium Chloride 10 ml 07/22/23 01:00 07/24/23 00:38 Sodium Chloride Flush 0.9% 10 Ml Syringe IVP 10 ml 0100,0900,1700 MAGI Administration Solifenacin 10 mg 07/22/23 09:00 07/23/23 08:15 Solifenacin Succinate 5 Mg Tablet PO 10 mg DAILY MAGI Administration Tamsulosin HCl 0.4 mg 07/22/23 02:00 07/23/23 20:19 Tamsulosin 0.4 Mg Capsule PO 0.4 mg HS MAGI Administration - Lab Result Fish Bone Diagrams: 07/24/23 04:59 07/24/23 04:59 - Additional Planning My Orders: My Active Orders 07/23/23 07:18 Telemetry (24 Hour) [RC] Q4HR 07/23/23 09:00 amLODIPine [Norvasc] 5 mg PO DAILY 07/23/23 Lunch Dysphagia - Puree [DIET] 07/23/23 12:00 Cholecalciferol [Vitamin D3] 50 mcg PO DAILY Cyanocobalamin [Vitamin B-12] 500 mcg PO DAILY Multivitamin W/Minerals [Theragran M] 1 tab PO DAILYWM 07/24/23 07:15 Magnesium Sulfate 2 Gram [Magnesium Sulfate] 2 gm in 50 ml IV ONCE 07/24/23 08:00 Magnesium Oxide [Mag Ox] 400 mg PO DAILYWM 07/24/23 09:00 Sodium Chloride [Salt Tab] 1 gm PO DAILY Subjective - Subjective Patient Reports: Feeling Better, Resting Comfortably, No Complaints Objective Vital Signs: Vital Signs - 24 hr 07/23/23 07/23/23 07/23/23 13:06 15:50 20:14 Temperature 36.2 C L 36.4 C L 36.7 C Heart Rate [ 101 H 93 88 Brachial] Respiratory 20 20 18 Rate Blood Pressure 100/63 121/83 H 146/95 H [Right Brachial artery] O2 Saturation 96 96 96 07/23/23 07/24/23 07/24/23 23:44 05:09 05:47 Temperature 36.5 C 36.6 C Heart Rate [ 84 73 Brachial] Respiratory 18 16 Rate Blood Pressure 143/88 H 159/99 H 139/90 H [Right Brachial artery] O2 Saturation 93 97 07/24/23 07:35 Temperature 36.3 C L Heart Rate [ 61 Brachial] Respiratory 18 Rate Blood Pressure 159/84 H [Right Brachial artery] O2 Saturation 96 Oxygen O2 Source Room air I&O (Last 24 Hrs): Intake and Output Totals x24h 07/22/23 07/23/23 07/24/23 23:59 23:59 23:59 Intake Total 3020.000 3731.000 200 Output Total 4400 3050 350 Balance -1380.000 681.000 -150 General: Alert, Oriented x3, Cooperative, No acute distress HEENT: Atraumatic, PERRLA, EOMI Neck: Supple, No JVD, No thyromegaly, +2 carotid pulse wo bruit, No LAD Lymphatic: no adenopathy Neuro: Alert, CN 2-12 Grossly Intact, Oriented Times 3 Cardiovascular: Regular rate, Normal S1, Normal S2, No murmurs Respiratory: Chest non-tender, No respiratory distress, Breath sounds nml Abdomen: Normal bowel sounds, Soft, No tenderness, No hepatospenomegaly, No masses Genitourinary: Normal Inspection, No Mass, No Discharge, No Meatal Blood, No Hernia Rectal: Non-Tender Extremities: No clubbing, No cyanosis, No edema, Normal pulses, No tenderness/swelling Skin: No rashes, No breakdown, No significant lesion - Results Results: Laboratory Results WBC 8.1 x10^3/uL (4.8-10.8) 07/24/23 04:59 RBC 4.37 10^6/uL (4.70-6.10) L 07/24/23 04:59 Hgb 11.7 g/dL (14.0-18.0) L 07/24/23 04:59 Hct 35.4 % (42.0-52.0) L 07/24/23 04:59 MCV 81.0 fL (80.0-94.0) 07/24/23 04:59 MCH 26.8 pg (27.0-31.0) L 07/24/23 04:59 MCHC 33.1 g/dL (32.0-36.0) 07/24/23 04:59 RDW 14.5 % (12.0-15.0) 07/24/23 04:59 Plt Count 135 10^3/uL (130-450) 07/24/23 04:59 MPV 11.0 fL (7.4-11.4) 07/24/23 04:59 Neut # (Auto) 6.2 10^3/uL (1.5-6.6) 07/24/23 04:59 Lymph # (Auto) 1.1 10^3/uL (1.5-3.5) L 07/24/23 04:59 [place] # (Auto) 0.6 10^3/uL (0.0-1.0) 07/24/23 04:59 Eos # (Auto) 0.1 10^3/uL (0.0-0.7) 07/24/23 04:59 Baso # (Auto) 0.0 10^3/uL (0.0-0.1) 07/24/23 04:59 Absolute Nucleated RBC 0.00 x10^3/uL 07/24/23 04:59 Nucleated RBC % 0.0 /100WBC 07/24/23 04:59 Sodium 127 mmol/L (135-145) L 07/24/23 04:59 Potassium 3.3 mmol/L (3.5-4.5) L 07/24/23 04:59 Chloride 95 mmol/L (101-111) L 07/24/23 04:59 Carbon Dioxide 26 mmol/L (21-32) 07/24/23 04:59 Anion Gap 6.0 (6-13) 07/24/23 04:59 BUN 16 mg/dL (6-20) 07/24/23 04:59 Creatinine 0.6 mg/dL (0.6-1.3) 07/24/23 04:59 Estimated GFR (MDRD) 128 (>89) 07/24/23 04:59 Glucose 110 mg/dL (74-104) H 07/24/23 04:59 Estimat Average Glucose 111 mg/dL (70-100) H 07/22/23 06:03 Hemoglobin A1c % 5.5 % (4.27-6.07) 07/22/23 06:03 Calcium 9.0 mg/dL (8.5-10.3) 07/24/23 04:59 Magnesium 1.5 mg/dL (1.7-2.3) L 07/24/23 04:59 Iron 49 ug/dL (50-212) L 07/22/23 06:03 TIBC 540 ug/dL (250-450) H 07/22/23 06:03 % Saturation 9 % (20-50) L 07/22/23 06:03 Transferrin 386 mg/dL (203-362) H 07/22/23 06:03 Total Bilirubin 0.8 mg/dL (0.2-1.0) 07/21/23 20:18 AST 17 IU/L (10-42) 07/21/23 20:18 ALT 8 IU/L (10-60) L 07/21/23 20:18 Alkaline Phosphatase 56 IU/L (42-121) 07/21/23 20:18 Ammonia 14.4 umol/L (18-72) L 07/21/23 20:34 Troponin I High Sens 9.6 ng/L (2.3-19.7) 07/21/23 20:18 Total Protein 7.7 g/dL (6.4-8.9) 07/21/23 20:18 Albumin 4.7 g/dL (3.2-5.5) 07/21/23 20:18 Globulin 3.0 g/dL (2.1-4.2) 07/21/23 20:18 Albumin/Globulin Ratio 1.6 (1.0-2.2) 07/21/23 20:18 Triglycerides 60 mg/dL (48-352) 07/22/23 06:03 Cholesterol 198 mg/dL (-200) 07/22/23 06:03 LDL Cholesterol, Calc 99 mg/dL (-129) 07/22/23 06:03 VLDL Cholesterol 12 mg/dL 07/22/23 06:03 HDL Cholesterol 87 mg/dL (60-) 07/22/23 06:03 LDL/HDL Ratio 1.1 (<3.6) 07/22/23 06:03 Cholesterol/HDL Ratio 2.3 (<5.0) 07/22/23 06:03 Lipase < 10 U/L (11-82) L 07/21/23 20:18 Vitamin B12 212 pg/mL (180-914) 07/22/23 13:19 TSH 3.39 uIU/mL (0.34-5.60) 07/24/23 04:59 Urine Color YELLOW 07/22/23 10:27 Urine Clarity CLEAR (CLEAR) 07/22/23 10:27 Urine pH 6.5 PH (5.0-7.5) 07/22/23 10:27 Ur Specific [place] 1.020 (1.002-1.030) 07/22/23 10:27 Urine Protein 100 mg/dL (NEGATIVE) H 07/22/23 10:27 Urine Glucose (UA) 250 mg/dL (NEGATIVE) H 07/22/23 10:27 Urine Ketones 15 mg/dL (NEGATIVE) H 07/22/23 10:27 Urine Occult Blood SMALL (NEGATIVE) H 07/22/23 10:27 Urine Nitrite NEGATIVE (NEGATIVE) 07/22/23 10:27 Urine Bilirubin NEGATIVE (NEGATIVE) 07/22/23 10:27 Urine Urobilinogen 0.2 (NORMAL) E.U./dL (NORMAL) 07/22/23 10:27 Ur Leukocyte Esterase NEGATIVE (NEGATIVE) 07/22/23 10:27 Urine RBC 6-10 /HPF (0-5) H 07/22/23 10:27 Urine WBC 0-3 /HPF (0-3) 07/22/23 10:27 Urine WBC Clumps PRESENT 07/22/23 10:27 Ur Squamous Epith Cells RARE Squamous (<= Few) 07/22/23 10:27 Urine Bacteria Few /HPF (None Seen) 07/22/23 10:27 Ur Microscopic Review INDICATED 07/21/23 20:55 Urine Culture Comments NOT INDICATED 07/22/23 10:27 Urine Opiates Screen NEGATIVE (NEGATIVE) 07/21/23 20:55 Ur Buprenorphine Scrn NEGATIVE (NEGATIVE) 07/21/23 20:55 Ur Oxycodone Screen NEGATIVE (NEGATIVE) 07/21/23 20:55 Urine Methadone Screen NEGATIVE (NEGATIVE) 07/21/23 20:55 Ur Barbiturates Screen NEGATIVE (NEGATIVE) 07/21/23 20:55 Ur Tricyclics Screen NEGATIVE (NEGATIVE) 07/21/23 20:55 Ur Phencyclidine Scrn NEGATIVE (NEGATIVE) 07/21/23 20:55 Ur Amphetamine Screen NEGATIVE (NEGATIVE) 07/21/23 20:55 U Methamphetamines Scrn NEGATIVE (NEGATIVE) 07/21/23 20:55 U Benzodiazepines Scrn NEGATIVE (NEGATIVE) 07/21/23 20:55 Urine Cocaine Screen NEGATIVE (NEGATIVE) 07/21/23 20:55 U Cannabinoids Screen NEGATIVE (NEGATIVE) 07/21/23 20:55 Ur Drug Screen Comment CUTOFF CONC BELOW: 07/21/23 20:55 Ethyl Alcohol < 10.0 mg/dL 07/21/23 20:18 - Procedures Procedures: Procedures (04/16/20) (04/16/20) DRAINAGE OF BUTTOCK SUBCU/FASCIA, OPEN APPROACH (05/08/20) DRAINAGE OF PERITONEAL CAVITY, OPEN APPROACH (04/16/20) EXCISION OF BACK SUBCU/FASCIA, OPEN APPROACH (05/08/20) EXCISION OF ILEUM, OPEN APPROACH (04/16/20) EXCISION OF LEFT HIP MUSCLE, OPEN APPROACH (05/08/20) INSERTION OF INFUSION DEV INTO SUP VENA CAVA, PERC APPROACH (05/08/20) INSERTION OF MONITORING DEVICE INTO LOW ART, PERC APPROACH (04/16/20) IRRIGATION OF PERITONEAL CAVITY USING IRRIGAT, PERC APPROACH (04/16/20) RELEASE SMALL INTESTINE, OPEN APPROACH (04/16/20) REPAIR ABDOMINAL WALL, EXTERNAL APPROACH (04/16/20) REPAIR ABDOMINAL WALL, OPEN APPROACH (04/16/20) REPAIR MESENTERY, OPEN APPROACH (04/16/20) RESECTION OF APPENDIX, OPEN APPROACH (04/16/20) RESPIRATORY VENTILATION, 24-96 CONSECUTIVE HOURS (04/16/20) TOTAL KNEE REPLACEMENT (11/30/12)
[2023-07-24] MEDS: POTASSIUM CHLORIDE 20 MEQ TABLET PO ONE (08:40)
[2023-07-24] MEDS: SODIUM CHLORIDE 1 GM TABLET PO SCH (08:40)
[2023-07-24] MEDS: MAGNESIUM SULFATE 2 GRAM 2 GM/50 ML BAG IV ONE (08:40)
[2023-07-24] MEDS: MAGNESIUM OXIDE 400 MG TABLET PO SCH (08:40)
[2023-07-24] MEDS: CHLORHEXIDINE GLUCONATE 15 ML UDC PO SCH (20:29)
[2023-07-25 05:25] LABS: HCT - HEMATOCRIT 36.7 % (42.0-52.0); HGB - HEMOGLOBIN 11.7 g/dL (14.0-18.0); MEAN CORPUSCULAR HEMOGLOBIN 26.4 pg (27.0-31.0); MEAN CORPUSCULAR HGB CONC 31.9 g/dL (32.0-36.0); MEAN CORPUSCULAR VOLUME 82.7 fL (80.0-94.0); MEAN PLATELET VOLUME 10.9 fL (7.4-11.4); RED BLOOD COUNT 4.44 10^6/uL (4.70-6.10); RED CELL DISTRIBUTION WIDTH 14.6 % (12.0-15.0)
[2023-07-25 05:40] LABS: ALBUMIN 3.8 g/dL (3.2-5.5); ALBUMIN/GLOBULIN RATIO 1.7 (1.0-2.2); CALCIUM 9.2 mg/dL (8.5-10.3); CREATININE 0.7 mg/dL (0.6-1.3); MAGNESIUM 1.5 mg/dL (1.7-2.3); POTASSIUM 3.6 mmol/L (3.5-4.5)
[2023-07-25] MEDS: MAGNESIUM SULFATE 1 GM in SODIUM CHLORIDE 0.9% 50 ML IV ONE (07:33)
[2023-07-25] MEDS: FERROUS SULFATE 325 MG TABLET PO SCH (09:05)
--- NOTE | 2023-07-25 09:21 | Discharge Plan ---
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 Notify PCP of admission and forward orders to primary provider for signature. Weight on admission and: Weekly Call PCP immediately if weight increases by: 5 kg Other Notification Orders: Call PCP immediately if patient develops dyspnea, chest pain/tightness or edema. House Bowel Program: Yes Additional Bowel Program Orders: If no BM after 2 days, nurse may give M.O.M. 30ml PO PRN and/or ducolax Supp 1 [place] and/or EFREM 250mg P.O., and/or senna 1-2 tabs PO. On day 3 nurse may give repeat above order until residents constipation is resolved. Annual Influenza Vaccine (between Dec 06 and July 05): Yes Two-step PPD per [facility] [phone] or approved exception documents: Yes Treatments & Other Orders: Please check BP daily for 5 days. Repeat CXR in 2 weeks to evaluate interval change in pneumonia. Gupta was inserted due to urinary retention, please attempt voiding trial in 3-5 days. Medication Orders: PLEASE REFER TO THE DISCHARGE MEDICATION LIST. Insulin Orders?: No - Medications New Prescriptions: Amox/Clav 875/125 [Augmentin 875/125 Tab] 1 tablet PO Q12H 5 Days #10 tablet Ferrous Sulfate [Feosol] 325 mg PO DAILYWM #30 tab amLODIPine [Norvasc] 5 mg PO DAILY #30 tab Cyanocobalamin [Vitamin B-12] 500 mcg PO DAILY #30 tab Cholecalciferol [Vitamin D3] 50 mcg PO DAILY #30 tab - Diet Type: Geriatric Texture: Mech soft Liquids: Thin Supplements: High calorie/protein 4 oz supplement daily May have monthly special meal: Yes - Therapies | Activity Therapy: Evaluation | Treat if indicated: PT, OT, Swallowing / ST Rehabilitation Potential: Maximize functional status, Return to independent living Activity: No Restrictions Weight Bearing: Full Weight Follow Up: Follow up with Dr Rye Lagunas in 3-5 days."
--- NOTE | 2023-07-25 09:27 | DISCHARGE SUMMARY ---
Discharge Summary Admit Date: 07/22/23 Discharge Date: 07/25/23 Discharging Provider: Keenan Mitchell Code Status: Attempt Resuscitation Condition at Discharge: Good Discharge Disposition: 03 SNF DC/Xfer - HPI History of Present Illness: H&P was conducted via video remotely, using Access Cart. Patient is in [place]. Physician is in [place]. ONLINE CONTENT COORDINATOR at bedside. Unable to obtain history from pt d/t pt's clinical condition. History obtained from staff, chart. 83 yo M with PMH of COPD, LONNIE on CPAP, CAD, Anxiety, Hearing loss, DJD, Psoriasis, BPH, GERD presented to the ER for c/o 2 hour h/o AMS. Pt's had reported that pt had Dental procedure: root canal that took 4 hours today. About 2 hours after returning home, his noted that he seemed confused with increased global weakness and possibly had slurred speech. Pt responds to his name when called, but does not give his name when asked. He has been mumbling in the ER, but it has been difficult to understand. Pt's had denied any head injuries. She had reported that pt is alert and coherent at baseline. No narcotic medication given for dental procedure per . Pt unable to answer questions about cough, SOB, F/C, etc. EMS reported normal glucose, high BP, no localized weakness, confusion. In the ER, BP 187/96, Hgb 12.2, MCV 26, Plt 119, Na 127-129, Glc 162, U/A neg, UDS neg, ETOH neg. CXR: large opacity R lung, small R pleural effusion CT Head: Hypoattenuation L frontoparietal region: possible prior infarct. Krzysztof mmend MRI. CTA H/N: NAD, Mod stenosis R prox ICA 50% Pt was given IVF, Zofran in the ER. - HOSPITAL COURSE Hospital Course: Patient is an 83-year-old male who presented to the ED after he had a dental procedure. Postprocedure, patient was confused with weakness and slurred speech. He was brought to the ED where chest x-ray was performed showing a large opacity in the right lung. A CT head was also performed showing hypoattenuation in the left frontoparietal region. This was followed up with an MRI which was unremarkable. A CTA was also performed which revealed right proximal ICA stenosis of 50%. Patient was admitted and started on IV Unasyn for his suspected pneumonia. 24 hours after admission his mental status improved significantly and he returned to baseline. He was eval by PT/OT who recommended SNF. He was subsequently discharged on oral Augmentin to complete 7 total days of treatment. He will need to follow-up chest x-ray to ensure resolution of his pneumonia in 2 to 4 weeks. Patient was having some dysphagia and was eval by speech therapy. His diet recommendations have been communicated to the nursing home facility. He will need continued PT/OT/speech therapy. Exact etiology of his confusion was never fully identified. It is likely he had a TIA which resulted in aspiration pneumonia. He will remain on oral aspirin therapy. Gupta catheter had to be inserted on day of discharge after a failed voiding trial. Patient was retaining 540 mL in his bladder. Can re-attempt in several days. - ALLERGIES Allergies/Adverse Reactions: Allergies Allergy/AdvReac Type Severity Reaction Status Date / Time No Known Drug Allergies Allergy Verified 07/21/23 20:33 - MEDICATIONS Home Medications: Ambulatory Orders Medication Instructions Recorded Confirmed Tamsulosin [Flomax] 0.4 mg PO DAILY PM 04/15/20 07/21/23 Aspirin EC [Ecotrin] 81 mg PO DAILY 05/09/20 07/21/23 Sertraline HCl [Zoloft] 100 mg PO DAILY 05/09/20 07/22/23 oxyBUTYnin chloride [Ditropan Xl] 10 mg PO DAILY 05/09/20 07/21/23 Omeprazole 20 mg PO DAILY 07/21/23 07/22/23 Mupirocin 2% Oint [Bactroban 2% 1 appful TOP BID 07/22/23 07/22/23 Oint] Amox/Clav 875/125 [Augmentin 1 tablet PO Q12H 5 Days #10 tablet 07/25/23 875/125 Tab] Cholecalciferol [Vitamin D3] 50 mcg PO DAILY #30 tab 07/25/23 Cyanocobalamin [Vitamin B-12] 500 mcg PO DAILY #30 tab 07/25/23 Ferrous Sulfate [Feosol] 325 mg PO DAILYWM #30 tab 07/25/23 amLODIPine [Norvasc] 5 mg PO DAILY #30 tab 07/25/23 - PHYSICAL EXAM AT DISCHARGE General Appearance: positive: No acute distress, Alert Respiratory: positive: Chest non-tender, No respiratory distress, Breath sounds nml Cardiovascular: positive: Regular rate & rhythm, No murmur, No gallop Abdomen: positive: Non-tender, No organomegaly, Nml bowel sounds Neurologic/Psychiatric: positive: Oriented x3, CN's nml (2-12) - LABS Result Diagrams: 07/25/23 05:00 07/25/23 05:00 - FOLLOW UP Follow Up: Follow up with PCP. - TIME SPENT Time Spent in Discharge (Minutes): 35
--- NOTE | 2023-07-25 10:42 | PROVIDER PROGRESS NOTE ---
Assessment/Plan - Problem List (1) Altered mental status Qualifiers: Altered mental status type: delirium Qualified Code(s): R41.0 - Disorientation, unspecified Assessment/Plan: (1) Altered mental status Qualifiers: Altered mental status type: delirium Qualified Code(s): R41.0 - Disorientat ion, unspecified Assessment/Plan: --Improving. (2) Pneumonia Assessment/Plan: -- There are some concern for aspiration. Continue patient on IV antibiotics with Unasyn. He is responding well to antibiotics. Dispo: Medically stable for discharge. Pending placement. - Current Meds Current Meds: Current Medications Generic Name Dose Route Start Last Admin Trade Name Freq PRN Reason Stop Dose Admin Amlodipine Besylate 5 mg 07/23/23 09:00 07/25/23 08:36 Amlodipine 5 Mg Tablet PO 5 mg DAILY MAGI Administration Chlorhexidine Gluconate 15 ml 07/24/23 21:00 07/25/23 08:37 Chlorhexidine Gluconate 15 Ml Udc PO 15 ml BID MAGI Administration Cholecalciferol 50 mcg 07/23/23 12:00 07/25/23 08:36 Cholecalciferol 25 Mcg Tablet PO 50 mcg DAILY MAGI Administration Cyanocobalamin 500 mcg 07/23/23 12:00 07/25/23 08:36 Cyanocobalamin 500 Mcg Tablet PO 500 mcg DAILY MAGI Administration Ferrous Sulfate 325 mg 07/25/23 09:00 07/25/23 09:05 Ferrous Sulfate 325 Mg Tablet PO 325 mg DAILYWM MAGI Administration Ampicillin Sodium/Sulbactam 100 mls @ 200 mls/hr 07/22/23 02:00 07/25/23 09:27 Sodium 3 gm/ Sodium Chloride IV Infused Q6H MAGI Infusion Lorazepam 1 mg 07/22/23 09:26 07/23/23 14:22 Lorazepam 2 Mg/Ml Vial IVP 1 mg Q2H PRN Administration Anxiety Magnesium Oxide 400 mg 07/24/23 08:00 07/25/23 08:36 Magnesium Oxide 400 Mg Tablet PO 400 mg DAILYWM MAGI Administration Multivitamins/Minerals 1 tab 07/23/23 12:00 07/25/23 08:36 Multivitamin W/Minerals Tablet PO 1 tab DAILYWM MAGI Administration Mupirocin 1 applic 07/22/23 21:00 07/25/23 08:37 Mupirocin 2% Oint 22 Gm Tube TOP 1 applic BID MAGI Administration Pantoprazole Sodium 40 mg 07/22/23 09:00 07/25/23 08:36 Pantoprazole 40 Mg Tablet PO 40 mg DAILY MAGI Administration Sertraline HCl 100 mg 07/22/23 09:00 07/25/23 08:36 Sertraline 50 Mg Tablet PO 100 mg DAILY MAGI Administration Sodium Chloride 10 ml 07/22/23 00:41 07/22/23 02:16 Sodium Chloride Flush 0.9% 10 Ml Syringe IVP 10 ml PRN PRN Administration NEEDED PER PROVIDER ORDERS Sodium Chloride 10 ml 07/22/23 01:00 07/25/23 08:37 Sodium Chloride Flush 0.9% 10 Ml Syringe IVP 10 ml 0100,0900,1700 MAGI Administration Sodium Chloride 1 gm 07/24/23 09:00 07/25/23 08:36 Sodium Chloride 1 Gm Tablet PO 1 gm DAILY MAGI Administration Solifenacin 10 mg 07/22/23 09:00 07/25/23 08:36 Solifenacin Succinate 5 Mg Tablet PO 10 mg DAILY MAGI Administration Tamsulosin HCl 0.4 mg 07/22/23 02:00 07/24/23 20:29 Tamsulosin 0.4 Mg Capsule PO 0.4 mg HS MAGI Administration - Lab Result Fish Bone Diagrams: 07/25/23 05:00 07/25/23 05:00 - Additional Planning My Orders: My Active Orders 07/24/23 Lunch Dysphagia - Soft and Bite Sized [DIET] 07/24/23 21:00 Chlorhexidine [Peridex] 15 ml PO BID 07/25/23 COVID-19 [facility] Urgent 07/25/23 09:00 Ferrous Sulfate [Feosol] 325 mg PO DAILYWM 07/25/23 10:12 Gupta Discontinuation [RC] ONCE Subjective - Subjective Patient Reports: Feeling Better, Resting Comfortably, No Complaints Objective Vital Signs: Vital Signs - 24 hr 07/24/23 07/24/23 07/25/23 11:05 15:36 00:00 Temperature 36.8 C 36.2 C L 36.6 C Heart Rate [ 61 84 71 Brachial] Respiratory 18 18 18 Rate Blood Pressure 147/82 H 114/57 L 157/80 H [Right Brachial artery] O2 Saturation 95 93 96 07/25/23 08:00 Temperature 36.3 C L Heart Rate [ 85 Brachial] Respiratory 18 Rate Blood Pressure 130/92 H [Right Brachial artery] O2 Saturation 95 Oxygen O2 Source Room air I&O (Last 24 Hrs): Intake and Output Totals x24h 07/23/23 07/24/23 07/25/23 23:59 23:59 23:59 Intake Total 3731.000 2084.0 492 Output Total 3050 900 675 Balance 666.392 9608.0 -183 General: Alert, Oriented x3, Cooperative, No acute distress Cardiovascular: Regular rate, Normal S1, Normal S2, No murmurs Respiratory: Chest non-tender, No respiratory distress, Breath sounds nml - Results Results: Laboratory Results WBC 7.0 x10^3/uL (4.8-10.8) 07/25/23 05:00 RBC 4.44 10^6/uL (4.70-6.10) L 07/25/23 05:00 Hgb 11.7 g/dL (14.0-18.0) L 07/25/23 05:00 Hct 36.7 % (42.0-52.0) L 07/25/23 05:00 MCV 82.7 fL (80.0-94.0) 07/25/23 05:00 MCH 26.4 pg (27.0-31.0) L 07/25/23 05:00 MCHC 31.9 g/dL (32.0-36.0) L 07/25/23 05:00 RDW 14.6 % (12.0-15.0) 07/25/23 05:00 Plt Count 132 10^3/uL (130-450) 07/25/23 05:00 MPV 10.9 fL (7.4-11.4) 07/25/23 05:00 Neut # (Auto) 6.2 10^3/uL (1.5-6.6) 07/24/23 04:59 Lymph # (Auto) 1.1 10^3/uL (1.5-3.5) L 07/24/23 04:59 [place] # (Auto) 0.6 10^3/uL (0.0-1.0) 07/24/23 04:59 Eos # (Auto) 0.1 10^3/uL (0.0-0.7) 07/24/23 04:59 Baso # (Auto) 0.0 10^3/uL (0.0-0.1) 07/24/23 04:59 Absolute Nucleated RBC 0.00 x10^3/uL 07/24/23 04:59 Nucleated RBC % 0.0 /100WBC 07/24/23 04:59 Sodium 129 mmol/L (135-145) L 07/25/23 05:00 Potassium 3.6 mmol/L (3.5-4.5) 07/25/23 05:00 Chloride 97 mmol/L (101-111) L 07/25/23 05:00 Carbon Dioxide 26 mmol/L (21-32) 07/25/23 05:00 Anion Gap 6.0 (6-13) 07/25/23 05:00 BUN 18 mg/dL (6-20) 07/25/23 05:00 Creatinine 0.7 mg/dL (0.6-1.3) 07/25/23 05:00 Estimated GFR (MDRD) 107 (>89) 07/25/23 05:00 Glucose 108 mg/dL (74-104) H 07/25/23 05:00 Estimat Average Glucose 111 mg/dL (70-100) H 07/22/23 06:03 Hemoglobin A1c % 5.5 % (4.27-6.07) 07/22/23 06:03 Calcium 9.2 mg/dL (8.5-10.3) 07/25/23 05:00 Magnesium 1.5 mg/dL (1.7-2.3) L 07/25/23 05:00 Iron 49 ug/dL (50-212) L 07/22/23 06:03 TIBC 540 ug/dL (250-450) H 07/22/23 06:03 % Saturation 9 % (20-50) L 07/22/23 06:03 Transferrin 386 mg/dL (203-362) H 07/22/23 06:03 Total Bilirubin 1.0 mg/dL (0.2-1.0) 07/25/23 05:00 AST 20 IU/L (10-42) 07/25/23 05:00 ALT 12 IU/L (10-60) 07/25/23 05:00 Alkaline Phosphatase 58 IU/L (42-121) 07/25/23 05:00 Ammonia 14.4 umol/L (18-72) L 07/21/23 20:34 Troponin I High Sens 9.6 ng/L (2.3-19.7) 07/21/23 20:18 Total Protein 6.0 g/dL (6.4-8.9) L 07/25/23 05:00 Albumin 3.8 g/dL (3.2-5.5) 07/25/23 05:00 Globulin 2.2 g/dL (2.1-4.2) 07/25/23 05:00 Albumin/Globulin Ratio 1.7 (1.0-2.2) 07/25/23 05:00 Triglycerides 60 mg/dL (48-352) 07/22/23 06:03 Cholesterol 198 mg/dL (-200) 07/22/23 06:03 LDL Cholesterol, Calc 99 mg/dL (-129) 07/22/23 06:03 VLDL Cholesterol 12 mg/dL 07/22/23 06:03 HDL Cholesterol 87 mg/dL (60-) 07/22/23 06:03 LDL/HDL Ratio 1.1 (<3.6) 07/22/23 06:03 Cholesterol/HDL Ratio 2.3 (<5.0) 07/22/23 06:03 Lipase < 10 U/L (11-82) L 07/21/23 20:18 Vitamin B12 212 pg/mL (180-914) 07/22/23 13:19 TSH 3.39 uIU/mL (0.34-5.60) 07/24/23 04:59 Urine Color YELLOW 07/22/23 10:27 Urine Clarity CLEAR (CLEAR) 07/22/23 10:27 Urine pH 6.5 PH (5.0-7.5) 07/22/23 10:27 Ur Specific [place] 1.020 (1.002-1.030) 07/22/23 10:27 Urine Protein 100 mg/dL (NEGATIVE) H 07/22/23 10:27 Urine Glucose (UA) 250 mg/dL (NEGATIVE) H 07/22/23 10:27 Urine Ketones 15 mg/dL (NEGATIVE) H 07/22/23 10:27 Urine Occult Blood SMALL (NEGATIVE) H 07/22/23 10:27 Urine Nitrite NEGATIVE (NEGATIVE) 07/22/23 10:27 Urine Bilirubin NEGATIVE (NEGATIVE) 07/22/23 10:27 Urine Urobilinogen 0.2 (NORMAL) E.U./dL (NORMAL) 07/22/23 10:27 Ur Leukocyte Esterase NEGATIVE (NEGATIVE) 07/22/23 10:27 Urine RBC 6-10 /HPF (0-5) H 07/22/23 10:27 Urine WBC 0-3 /HPF (0-3) 07/22/23 10:27 Urine WBC Clumps PRESENT 07/22/23 10:27 Ur Squamous Epith Cells RARE Squamous (<= Few) 07/22/23 10:27 Urine Bacteria Few /HPF (None Seen) 07/22/23 10:27 Ur Microscopic Review INDICATED 07/21/23 20:55 Urine Culture Comments NOT INDICATED 07/22/23 10:27 Urine Opiates Screen NEGATIVE (NEGATIVE) 07/21/23 20:55 Ur Buprenorphine Scrn NEGATIVE (NEGATIVE) 07/21/23 20:55 Ur Oxycodone Screen NEGATIVE (NEGATIVE) 07/21/23 20:55 Urine Methadone Screen NEGATIVE (NEGATIVE) 07/21/23 20:55 Ur Barbiturates Screen NEGATIVE (NEGATIVE) 07/21/23 20:55 Ur Tricyclics Screen NEGATIVE (NEGATIVE) 07/21/23 20:55 Ur Phencyclidine Scrn NEGATIVE (NEGATIVE) 07/21/23 20:55 Ur Amphetamine Screen NEGATIVE (NEGATIVE) 07/21/23 20:55 U Methamphetamines Scrn NEGATIVE (NEGATIVE) 07/21/23 20:55 U Benzodiazepines Scrn NEGATIVE (NEGATIVE) 07/21/23 20:55 Urine Cocaine Screen NEGATIVE (NEGATIVE) 07/21/23 20:55 U Cannabinoids Screen NEGATIVE (NEGATIVE) 07/21/23 20:55 Ur Drug Screen Comment CUTOFF CONC BELOW: 07/21/23 20:55 Ethyl Alcohol < 10.0 mg/dL 07/21/23 20:18 - Procedures Procedures: Procedures (04/16/20) (04/16/20) DRAINAGE OF BUTTOCK SUBCU/FASCIA, OPEN APPROACH (05/08/20) DRAINAGE OF PERITONEAL CAVITY, OPEN APPROACH (04/16/20) EXCISION OF BACK SUBCU/FASCIA, OPEN APPROACH (05/08/20) EXCISION OF ILEUM, OPEN APPROACH (04/16/20) EXCISION OF LEFT HIP MUSCLE, OPEN APPROACH (05/08/20) INSERTION OF INFUSION DEV INTO SUP VENA CAVA, PERC APPROACH (05/08/20) INSERTION OF MONITORING DEVICE INTO LOW ART, PERC APPROACH (04/16/20) IRRIGATION OF PERITONEAL CAVITY USING IRRIGAT, PERC APPROACH (04/16/20) RELEASE SMALL INTESTINE, OPEN APPROACH (04/16/20) REPAIR ABDOMINAL WALL, EXTERNAL APPROACH (04/16/20) REPAIR ABDOMINAL WALL, OPEN APPROACH (04/16/20) REPAIR MESENTERY, OPEN APPROACH (04/16/20) RESECTION OF APPENDIX, OPEN APPROACH (04/16/20) RESPIRATORY VENTILATION, 24-96 CONSECUTIVE HOURS (04/16/20) TOTAL KNEE REPLACEMENT (11/30/12)
[2023-07-26 11:17] VITALS: BP 143/88; O2SAT 98
== END 2023-07-26 12:45 | DRG 178 ==
LOC: EDUNIT# → ED 20:15 → MS2 07-22 00:41 → UNDOADMOB 07-22 00:41 → MS2 07-22 01:17 → UNDOADMOB 07-22 01:17 → OBSVTOIN 07-22 10:25
PROVIDERS: ADMIT Internal Medicine; ATTEND Family Medicine
PROC: 0T9B70Z Drainage of Bladder with Drainage Device, Via Natural or Artificial Opening (ICD-10-PCS; principal; 2023-07-26)
DX: J69.0 Pneumonitis due to inhalation of food and vomit (principal); E87.1 Hypo-osmolality and hyponatremia; G45.9 Transient cerebral ischemic attack, unspecified; J90 Pleural effusion, not elsewhere classified; J44.9 Chronic obstructive pulmonary disease, unspecified; R41.0 Disorientation, unspecified; R47.01 Aphasia; G47.33 Obstructive sleep apnea (adult) (pediatric); I25.10 Atherosclerotic heart disease of native coronary artery without angina pectoris; R53.1 Weakness; F41.9 Anxiety disorder, unspecified; H91.90 Unspecified hearing loss, unspecified ear; M19.90 Unspecified osteoarthritis, unspecified site; L40.9 Psoriasis, unspecified; D69.6 Thrombocytopenia, unspecified; K21.9 Gastro-esophageal reflux disease without esophagitis; I65.21 Occlusion and stenosis of right carotid artery; R47.81 Slurred speech; N40.0 Benign prostatic hyperplasia without lower urinary tract symptoms; R13.10 Dysphagia, unspecified; Z20.822 Contact with and (suspected) exposure to COVID-19; Z87.891 Personal history of nicotine dependence; N40.1 Benign prostatic hyperplasia with lower urinary tract symptoms; R33.8 Other retention of urine; R03.0 Elevated blood-pressure reading, without diagnosis of hypertension; E78.00 Pure hypercholesterolemia, unspecified; I25.2 Old myocardial infarction; E86.0 Dehydration; R73.9 Hyperglycemia, unspecified; D50.9 Iron deficiency anemia, unspecified; I35.8 Other nonrheumatic aortic valve disorders; Z79.82 Long term (current) use of aspirin; Z79.899 Other long term (current) drug therapy
CPT/HCPCS: 36415; 51701; 70450; 70496; 70498; 70551; 71045; 80048; 80053; 80061; 80306; 81001; 82140; 82607; 83036; 83540; 83690; 83735; 84295; 84443; 84466; 84484; 85025; 85027; 87040; 87635; 92526; 92610; 93005; 93307; 94761; 96365; 96367; 96368; 96375; 97162; 97166; 97530; 97535; 99284; 99285; A9270; G0378; G0480; J1750; J2060; J7040; Q9967; 81003; 82077; 83721; 87086

== ENCOUNTER 2023-08-08 23:45 | Outpatient (CLI) | payer MEDICARE, OTHER | END 2023-08-08 23:59 | disposition critical access hospital (66) | LOC: EMS 23:45 | DX: R53.1 Weakness (principal); W18.39XA Other fall on same level, initial encounter; Y93.01 Activity, walking, marching and hiking; Y92.092 Bedroom in other non-institutional residence as the place of occurrence of the external cause | CPT/HCPCS: A0425; A0429 ==

== ENCOUNTER 2023-08-08 23:51 | Emergency (ER) | payer MEDICARE, OTHER ==
--- NOTE | 2023-08-09 01:13 | CT Report ---
PROCEDURE: Head WO INDICATIONS: fall +HT no loc TECHNIQUE: Noncontrast 4.5 mm thick angled axial sections acquired from the foramen magnum to the vertex. For r adiation dose reduction, the following was used: automated exposure control, adjustment of mA and/or kV according to patient size. COMPARISON: MRI brain 11/21/2023, CT head 07/21/2023 FINDINGS: Image quality: Excellent. The ventricular system and cortical sulci demonstrate atrophy, consistent for patient's stated age. There are areas of hypodensity in the periventricular and subcortical white matter. There is no acut e intra or extra-axial fluid collection. No acute hemorrhage, mass lesion or midline shift. Brainst em is unremarkable. Left frontal parietal focus of prior infarction. Globes are symmetrical. Sinuses demonstrate scattered areas of mild mucosal thickening.. Osseous stru ctures are intact. IMPRESSION: 1. No acute intracranial process. 2. Moderate atrophy and chronic microvascular ischemic changes. Reviewed by: Audra Beal MD on 08/09/2023 1:12 AM PDT Approved by: Audra Beal MD on 08/09/2023 1:12 AM PDT Station ID: [id number]
--- NOTE | 2023-08-09 01:15 | ED Physician Documentation ---
History of Present Illness - Stated complaint Stated Complaint: GLF - Chief complaint Chief Complaint: Trauma Hd/Nk - History obtained from History obtained from: Patient - Additonal information Additional information: 83yM not on AC p/w unwitnessed Mechanical fall, hitting head with no LOC at [facility]. Patient has no complaints at this time Review of Systems Constitutional: denies: Fever, Chills Eyes: denies: Loss of vision Neurologic: reports: Head injury. denies: Generalized weakness, Focal weakness, Numbness, Headache, LOC PD PAST MEDICAL HISTORY - Past Medical History Past Medical History: Yes Cardiovascular: High cholesterol, NC Respiratory: COPD, Sleep apnea, CPAP use Neuro: CVA, Other Endocrine/Autoimmune: None GI: None : None HEENT: Chronic hearing loss Psych: Anxiety Musculoskeletal: Osteoarthritis Derm: Psoriasis - Past Surgical History Past Surgical History: Yes General: Colonoscopy Ortho: Knee replacement Cardiovascular: Coronary stent, Lobectomy - Present Medications Home Medications: Ambulatory Orders Medication Instructions Recorded Confirmed Tamsulosin [Flomax] 0.4 mg PO DAILY PM 04/15/20 07/21/23 Aspirin EC [Ecotrin] 81 mg PO DAILY 05/09/20 07/21/23 Sertraline HCl [Zoloft] 100 mg PO DAILY 05/09/20 07/22/23 oxyBUTYnin chloride [Ditropan Xl] 10 mg PO DAILY 05/09/20 07/21/23 Omeprazole 20 mg PO DAILY 07/21/23 07/22/23 Mupirocin 2% Oint [Bactroban 2% 1 appful TOP BID 07/22/23 07/22/23 Oint] Amox/Clav 875/125 [Augmentin 1 tablet PO Q12H 5 Days #10 tablet 07/25/23 875/125 Tab] Cholecalciferol [Vitamin D3] 50 mcg PO DAILY #30 tab 07/25/23 Cyanocobalamin [Vitamin B-12] 500 mcg PO DAILY #30 tab 07/25/23 Ferrous Sulfate [Feosol] 325 mg PO DAILYWM #30 tab 07/25/23 amLODIPine [Norvasc] 5 mg PO DAILY #30 tab 07/25/23 - Allergies Allergies/Adverse Reactions: Allergies Allergy/AdvReac Type Severity Reaction Status Date / Time No Known Drug Allergies Allergy Verified 08/09/23 00:01 - Social History Does the pt smoke?: No Smoking Status: Never smoker Does the pt drink ETOH?: Yes Does the pt have substance abuse?: No - Immunizations Immunizations are current?: Yes - POLST Patient has POLST: No PD ED PE NORMAL - Vitals Vital signs reviewed: Yes - General General: Alert and oriented X 3, No acute distress, Well developed/nourished - HEENT HEENT: Atraumatic, PERRL, EOMI, Moist mucous membranes, Pharynx benign - Neck Neck: No bony TTP, Other (c collar in place on arrival) - Cardiac Cardiac: RRR - Respiratory Respiratory: No respiratory distress, Clear bilaterally - Abdomen Abdomen: Non tender, Non distended - Neuro Neuro: Alert and oriented X 3, No motor deficit, No sensory deficit Eye Opening: Spontaneous Motor: Obeys Commands Verbal: Oriented GCS Score: 15 Results - Vitals Vitals: Vital Signs - 24 hr 08/08/23 08/09/23 23:51 01:39 Temperature 36.3 C L Heart Rate 81 58 L Respiratory 16 18 Rate Blood Pressure 141/84 H 150/91 H O2 Saturation 94 98 Oxygen O2 Source Room air PD Medical Decision Making - ED course ED course: 83yM p/w mechanical fall from standing with +HT no loc not on AC. benign exam and CT head and c spine are negative aside from submandibular gland enlargement. ent referral provided and d/w patient. Info provided to carla. return precautions given. Departure - Departure Disposition: 01 Home, Self Care Clinical Impression: Fall Condition: Stable Instructions: Falls Prevent Prepare What Do Follow-Up: CRISTIAN STRANGE MD [Physician No Access] - Comments: You were seen in the emergency department for evaluation after a fall. Your CTs were okay but you have enlargement of your submandibular gland and should be seen by ENT to have it biopsied. Please follow-up with ENT (referral provided) and return to the emergency department if you have any new or worsening symptoms or other concerns. Forms: PCP List
--- NOTE | 2023-08-09 01:19 | CT Report ---
PROCEDURE: Cervical Spine WO INDICATIONS: fall no midline pain TECHNIQUE: Noncontrast 3 mm thick sections acquired from the skull base to the T4 level. Sagittal and coronal r eformats were then constructed. For radiation dose reduction, the following was used: automated exp osure control, adjustment of mA and/or kV according to patient size. COMPARISON: CT head 08/09/2023, CT cervical spine 10/26/2020 FINDINGS: Image quality: Excellent. Bones: No fractures or dislocations. Visualized superior ribs are intact. Multilevel degenerative changes are present. Multilevel degenerative changes. Soft tissues: Prevertebral soft tissues are normal in thickness. No paravertebral hematomas. No ap ical pneumothoraces. The left submandibular gland demonstrates enlargement measuring 2.4 x 2.1 cm. T his is present predominantly along the inferior lateral portion of the gland series 2 image 74. This portion of the gland is more heterogeneous in appearance. No stones are identified.. Similar region i n 2020 measured 2.5 x 1.5 cm. IMPRESSION: Multilevel degenerative changes without visualized fracture. Enlargement of the left submandibular gland with heterogeneous appearance as described above compared to 202. 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 Further evaluation with ENT is r ecommended. Lesion is amenable to ultrasound FNA. Reviewed by: Audra Beal MD on 08/09/2023 1:18 AM PDT Approved by: Audra Beal MD on 08/09/2023 1:18 AM PDT Station ID: [id number]
[2023-08-09 01:48] VITALS: BP 150/91; O2SAT 98
== END 2023-08-09 02:55 | disposition home or self-care (01) ==
LOC: EDUNIT# → ED 23:51
DX: K11.1 Hypertrophy of salivary gland (principal); R41.0 Disorientation, unspecified
CPT/HCPCS: 99284

== ENCOUNTER 2023-08-09 02:55 | Outpatient (CLI) | payer MEDICARE, OTHER | END 2023-08-09 23:59 | disposition home or self-care (01) | LOC: EMS 02:55 | PROVIDERS: ATTEND Emergency Medicine | DX: R41.0 Disorientation, unspecified (principal); Z91.81 History of falling | CPT/HCPCS: A0425; A0428 ==

== ENCOUNTER 2023-09-19 21:08 | Outpatient (CLI) | payer MEDICARE, OTHER | END 2023-09-19 21:09 | disposition EMS.NT | LOC: EMS 21:08 | DX: Z03.89 Encounter for observation for other suspected diseases and conditions ruled out (principal) ==

== ENCOUNTER 2024-08-30 18:30 | Inpatient (IN) ==
[2024-08-30] MEDS ORDERED: LORazepam 2 MG/ML VIAL ONE ×2 (18:33→18:44)
[2024-08-30] MEDS ORDERED: iohexoL-300 100 ML VIAL ONE (18:37)
--- NOTE | 2024-08-30 18:41 | ED Physician Documentation ---
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 Patient's reports he was last seen normal around 3 this afternoon. He apparently went into the bathroom and was in there for multiple hours until she went to check on him again. She then found him in the ground convulsing and called EMS. He was reportedly acting normally earlier today. He does have residual right-sided weakness, which requires him to use a walker and have his help him care for himself. Upon arrival to the emergency department, he is unresponsive with possible seizure-like activity. His reports he has no proir history of seizures. His states that he does have difficulty with word finding sometimes. But his speech is normally clear and not slurred. He does have some difficulty with memory. He reportedly drinks 2 glasses of wine daily. He has gone a few weeks without drinking in the past and did not develop any withdrawal symptoms, including seizures. Meds/Allgy Home Medications Ambulatory Orders Medication Instructions Recorded Confirmed tamsulosin 0.4 mg capsule 0.4 mg PO BID 04/15/2008/31 aspirin 81 mg tablet,delayed 81 mg PO QAM 05/09/20 release omeprazole 20 mg capsule,delayed 20 mg PO QAM 08/31/24 08/31/24 release oxybutynin chloride 10 mg 10 mg PO QPM 08/31/24 tablet,extended release 24 hr sertraline 50 mg tablet 50 mg PO QAM 08/31/24 Allergies Allergies Allergy/AdvReac Type Severity Reaction Status Date / Time No Known Drug Allergies Allergy Verified 08/30/24 18:38 PFSH Active Problems All Active Problems (Updated 08/31/24 @ 17:56 by Tessa Hernandez MD) Do not resuscitate (Acute) Post-ictal confusion (Acute) Witnessed seizure-like activity (Acute) Altered mental status (Acute) Medical History Medical History (Updated 08/31/24 @ 17:56 by Tessa Hernandez MD) Normal colonoscopy Osteoarthritis Aspiration into airway had dental procedure 07/2023 with AMS 2 hours after home, CXR with large R lung opacity. Treated w abx and went to SNf for rehab GERD (gastroesophageal reflux disease) BPH loc w urin obs/LUTS Psoriasis CAD (coronary artery disease) remote hx of [place] Hearing loss LONNIE on CPAP CVA (cerebral vascular accident) Subdural hemorrhage 10/2020. 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 Transferred to [facility]. R residual. Fall since then. Surgical History Surgical History (Updated 08/31/24 @ 17:49 by Tessa Hernandez MD) Stented coronary artery Knee joint replacement status Social History Social History Smoking Status: Never smoker If you are a former smoker, when did you quit? (Date/Year): n/a Number of Years Smoked: 0 How many cigarettes a day do you smoke? (20 cigarettes=1 Pk): 0 Do you dip or chew tobacco?: No Do you vape?: No Patient requests smoking cessation consult: No Initiate information on smoking cessation: No Living arrangement: At home Living Condition: With spouse/s.o. Relationship: Spouse Level: Assisted Home Mobility Equipment: Walker Do you feel safe in your home environment?: Yes Suffered physical, verbal, emotional, or financial abuse?: No History of Abuse: No Frequency: Daily POLST Patient has POLST: No Exam Exam Vital Signs: Vital Signs x48h Pulse Pulse Resp BP BP Pulse Ox 08/31/24 15:53 76 18 182/103 H 95 08/31/24 15:30 76 182/103 H 08/31/24 14:00 70 18 179/99 H 94 08/31/24 12:00 61 18 191/103 H 99 Unresponsive. Leftward gaze preference. Rhythmic movement of the right lower extremity. Does not follow commands. Does not speak when requested. Lungs clear to auscultation bilaterally. S1 and S2 are audible. Abdomen soft and nontender. Extremities are warm and well-perfused. 2+ radial and DP pulses bilaterally. Pupils are reactive to light. No clonus in the lower extremities. He is not diaphoretic. Results Vitals Vitals: Vital Signs - 24 hr 08/30/24 19:30 08/30/24 19:45 08/30/24 20:00 Temperature 36.6 C Temperature Source Temporal Artery Scan Pulse Rate 96 100 97 Pulse Rate [Supine] Respiratory Rate 15 16 Blood Pressure 118/86 132/84 H Blood Pressure [Supine] O2 Saturation 97 90 L 97 Oxygen Delivery Method O2 Source Nasal cannula Nasal cannula Nasal cannula Oxygen Flow Rate If not protocol: Oxygen Flow, liters/minute 1 2 2 Pain Intensity 0 08/30/24 20:45 08/30/24 21:00 08/30/24 22:00 Temperature Temperature Source Pulse Rate 90 70 75 Pulse Rate [Supine] Respiratory Rate 17 18 18 Blood Pressure 126/85 138/79 H 141/85 H Blood Pressure [Supine] O2 Saturation 98 98 98 Oxygen Delivery Method O2 Source Room air Room air Nasal cannula Oxygen Flow Rate If not protocol: Oxygen Flow, liters/minute 2 Pain Intensity 0 0 0 08/30/24 22:30 08/30/24 23:00 08/31/24 00:00 Temperature Temperature Source Pulse Rate 79 80 72 Pulse Rate [Supine] Respiratory Rate 18 14 14 Blood Pressure 180/99 H 182/99 H 161/91 H Blood Pressure [Supine] O2 Saturation 97 96 94 Oxygen Delivery Method O2 Source Nasal cannula Room air Nasal cannula Oxygen Flow Rate If not protocol: Oxygen Flow, liters/minute 2 2 Pain Intensity 0 08/31/24 01:00 08/31/24 02:00 08/31/24 04:00 Temperature Temperature Source Pulse Rate 66 66 62 Pulse Rate [Supine] Respiratory Rate 15 15 15 Blood Pressure 163/89 H 178/94 H 184/96 H Blood Pressure [Supine] O2 Saturation 98 100 100 Oxygen Delivery Method O2 Source Nasal cannula Room air Nasal cannula Oxygen Flow Rate If not protocol: Oxygen Flow, liters/minute 2 2 Pain Intensity 08/31/24 06:00 08/31/24 08:15 08/31/24 08:39 Temperature 36.7 C Temperature Source Temporal Artery Scan Pulse Rate 65 65 Pulse Rate [Supine] Respiratory Rate 15 18 Blood Pressure 178/102 H 177/97 H Blood Pressure [Supine] O2 Saturation 96 100 Oxygen Delivery Method Nasal Cannula O2 Source Room air Nasal cannula Oxygen Flow Rate If not protocol: Oxygen Flow, liters/minute 2 2 Pain Intensity 0 08/31/24 09:25 08/31/24 09:31 08/31/24 10:49 Temperature 36.4 C L Temperature Source Temporal Artery Scan Pulse Rate 71 70 Pulse Rate [Supine] Respiratory Rate 16 14 Blood Pressure 178/96 H 154/91 H Blood Pressure [Supine] O2 Saturation 96 100 Oxygen Delivery Method Room Air O2 Source Room air Nasal cannula Oxygen Flow Rate If not protocol: Oxygen Flow, liters/minute 2 Pain Intensity 0 0 08/31/24 12:00 08/31/24 12:19 08/31/24 14:00 Temperature Temperature Source Pulse Rate 61 70 Pulse Rate [Supine] Respiratory Rate 18 18 Blood Pressure 191/103 H 179/99 H Blood Pressure [Supine] O2 Saturation 99 94 Oxygen Delivery Method Nasal Cannula O2 Source Room air Room air Oxygen Flow Rate 2 If not protocol: Oxygen Flow, liters/minute Pain Intensity 08/31/24 15:30 08/31/24 15:53 Temperature Temperature Source Pulse Rate 76 Pulse Rate [Supine] 76 Respiratory Rate 18 Blood Pressure 182/103 H Blood Pressure [Supine] 182/103 H O2 Saturation 95 Oxygen Delivery Method O2 Source Room air Oxygen Flow Rate If not protocol: Oxygen Flow, liters/minute Pain Intensity Oxygen O2 Source Room air Oxygen Flow Rate 2 EKG (time done) 18:38: EKG releavant findings:: EKG personally interpreted by author of this note. Relevant findings are: Rate: Tachy (111) Rhythm: Sinus tachycardia QRS: RBBB Ischemia: Normal ST segments Labs Labs: Laboratory Tests 08/30/24 08/30/24 08/30/24 18:33 19:24 22:31 WBC 8.5 RBC 4.98 Hgb 16.0 Hct 45.5 MCV 91.4 MCH 32.1 H MCHC 35.2 RDW 13.2 Plt Count 123 L MPV 10.1 Neut # (Auto) 7.6 H Lymph # (Auto) 0.5 L Weber # (Auto) 0.4 Eos # (Auto) 0.0 Baso # (Auto) 0.0 Absolute Nucleated RBC 0.00 Nucleated RBC % 0.0 PT 13.1 H INR 1.2 APTT 25.5 Sodium 133 L Potassium 3.9 Chloride 97 L Carbon Dioxide 19 L Anion Gap 17.0 H BUN 13 Creatinine 0.8 Estimated GFR (MDRD) 92 Glucose 179 H Lactic Acid 2.6 H Calcium 9.2 Magnesium 1.0 L* Total Bilirubin 1.3 H AST 13 ALT 9 L Alkaline Phosphatase 56 Total Creatine Kinase 338 H Troponin I High Sens 13.6 Total Protein 7.2 Albumin 4.5 Globulin 2.7 Albumin/Globulin Ratio 1.7 Urine Color Urine Clarity Urine pH Ur Specific [place] Urine Protein Urine Glucose (UA) Urine Ketones Urine Occult Blood Urine Nitrite Urine Bilirubin Urine Urobilinogen Ur Leukocyte Esterase Urine RBC Urine WBC Ur Squamous Epith Cells Urine Bacteria Urine Culture Comments Ethyl Alcohol < 10.0 08/30/24 08/30/24 08/31/24 22:50 23:48 04:52 WBC 7.6 RBC 4.35 L Hgb 14.2 Hct 40.3 L MCV 92.6 MCH 32.6 H MCHC 35.2 RDW 13.1 Plt Count 117 L MPV 9.9 Neut # (Auto) 5.9 Lymph # (Auto) 1.0 L Weber # (Auto) 0.6 Eos # (Auto) 0.1 Baso # (Auto) 0.0 Absolute Nucleated RBC 0.00 Nucleated RBC % 0.0 PT INR APTT Sodium 133 L Potassium 3.9 Chloride 99 L Carbon Dioxide 27 Anion Gap 7.0 BUN 12 Creatinine 0.7 Estimated GFR (MDRD) 107 Glucose 103 Lactic Acid 0.8 Calcium 8.4 L Magnesium 1.4 L Total Bilirubin AST ALT Alkaline Phosphatase Total Creatine Kinase Troponin I High Sens Total Protein Albumin Globulin Albumin/Globulin Ratio Urine Color YELLOW Urine Clarity CLEAR Urine pH 6.0 Ur Specific [place] 1.020 Urine Protein 30 H Urine Glucose (UA) NEGATIVE Urine Ketones TRACE Urine Occult Blood TRACE-INTA Urine Nitrite NEGATIVE Urine Bilirubin NEGATIVE Urine Urobilinogen 1 (NORMAL) Ur Leukocyte Esterase NEGATIVE Urine RBC 0-5 Urine WBC 0-3 Ur Squamous Epith Cells RARE Squamous Urine Bacteria Many H Urine Culture Comments NOT INDICATED Ethyl Alcohol PD Medical Decision Making ED course ED course: This patient presents unresponsive from home. It seems he was found and possibly convulsing by his . Last known well appears to possibly be 1500 today. This is a significant change from his cognitive baseline. EMS reports glucose was 100+. Upon arrival to the ER, he was protecting his airway although unresponsive. He had leftward gaze eye movements. He had rhythmic movements of his right lower extremity. There is no clonus. 2 mg IV lorazepam was given with some improvement of his rhythmic motions. He remained unresponsive. He was taken for emergenct CT/CTA head and neck to rule out a stroke. These images were without acute hemorrhage or ischemic stroke. He then had some rhythmic movements of his left lower extremity. I opted to load with 4.5 g of levetiracetam and give an additional 2 mg lorazepam. This seemed to stop these seizure-like movements. His leftward gaze appeared to resolve. His confirmed DNR/DNI code status but did want to further investigate the cause of these seizures medically. Of note, he does drink 2 glasses of wine daily for many years. She denies any history of seizures or alcohol withdrawal symptoms for him. He was not hyponatremic or hypoglycemic. He does have an elevated anion gap and lactic acid, so this being a seizure seems quite likely. Whether this is from alcohol withdrawal or an underlying seizure disorder is unknown. I don't see signs of alcohol withdrawal currently aside from tachycardia. Care was signed out to Dr. Gaona. Additional labs were ordered. Critical Care Critical Care Provided: Yes Time(min): 45 Comments: actively seizing, possible stroke, goals of care discussions Time Includes: Direct patient care, Review records, Reassess patient, Document care, Coordinate care, Family consult for tx dec and See progress note Data interpretation: Labs and Pulse ox Discharge Plan Discharge Patient Disposition: ED Place in Observation Condition: Stable Clinical Impression: Witnessed seizure-like activity Altered mental status Qualifiers: Altered mental status type: unspecified Qualified Code(s): R41.82 - Altered mental status, unspecified Interventions: ED Admission Assessment Last Done: 08/31/24 17:53
[2024-08-30 18:50] LABS: BASOPHILS % (AUTO) 0.2 %; EOSINOPHILS % (AUTO) 0.2 %; HCT - HEMATOCRIT 45.5 % (42.0-52.0); LYMPHOCYTES # (AUTO) 0.5 10^3/uL (1.5-3.5); LYMPHOCYTES % (AUTO) 5.6 %; MEAN CORPUSCULAR HEMOGLOBIN 32.1 pg (27.0-31.0); MEAN CORPUSCULAR HGB CONC 35.2 g/dL (32.0-36.0); MEAN CORPUSCULAR VOLUME 91.4 fL (80.0-94.0); MEAN PLATELET VOLUME 10.1 fL (7.4-11.4); MONOCYTES # (AUTO) 0.4 10^3/uL (0.0-1.0); MONOCYTES % (AUTO) 4.4 %; NEUTROPHILS # (AUTO) 7.6 10^3/uL (1.5-6.6); PLT - PLATELET COUNT 123 10^3/uL (130-450); RED BLOOD COUNT 4.98 10^6/uL (4.70-6.10); RED CELL DISTRIBUTION WIDTH 13.2 % (12.0-15.0); WHITE BLOOD COUNT 8.5 x10^3/uL (4.8-10.8)
--- OUTSIDE RECORDS SUMMARY | 2024-08-30 18:54 | EXTERNAL MEDICAL SUMMARY RPT | Continuity of Care Document ---
Author Organization [facility] Address [address] [place] [id number] Phone Problems date description facility 2024-08-03 09:16 Unspecified injury of head, ini tial encounter [facility] 2024-08-05 12:35 Abrasion of other part of head, initial encounter [facility] Social History date description facility
[2024-08-30 18:57] LABS: PARTIAL THROMBOPLASTIN TIME 25.5 secs (24.9-33.3)
[2024-08-30] MEDS: iohexoL-300 100 ML VIAL IVP ONE (18:57)
[2024-08-30] MEDS: LORazepam 2 MG/ML VIAL IVP STA ×2 (19:00→19:12)
[2024-08-30 19:01] LABS: INR 1.2 (0.8-1.2); PT - PROTHROMBIN TIME 13.1 secs (9.9-12.6)
--- NOTE | 2024-08-30 19:02 | CT Report ---
PROCEDURE: CT Head W/O Stroke Protocol INDICATIONS: seizure, possible stroke TECHNIQUE: Noncontrast 4.5 mm thick angled axial sections acquired from the foramen magnum to the vertex, with coronal reformats. For radiation dose reduction, the following was used: automated exposure control, adjustment of mA and/or kV according to patient size. COMPARISON: 08/09/2023 FINDINGS: Image quality: Diagnostic CSF spaces: Basal cisterns are patent. Lateral ventricles are symmetric. Volume: Vascular calcifications. Periventricular white matter disease is commonly seen with chronic microangiopathy. Volume loss is present. These findings are moderate to severe . Brain: No intracranial hemorrhage. No new loss of fitzpatrick-white differentiation Old left parietal infarct. Craniofacial structures: No significant paranasal sinus opacity. IMPRESSION: No acute intracranial hemorrhage. Called to the ED. This study fulfills neurological imaging criteria for inclusion or exclusion of acute stroke therapies based on available published neurological imaging guidelines. Reviewed by: Rodney Betancourt MD on 08/30/2024 7:00 PM PDT Approved by: Rodney Betancourt MD on 08/30/2024 7:00 PM PDT Station ID: [id number]
[2024-08-30 19:05] LABS: TROPONIN I HIGH SENSITIVITY 13.6 ng/L (2.3-19.7)
[2024-08-30 19:06] LABS: ALBUMIN 4.5 g/dL (3.2-5.5); ALBUMIN/GLOBULIN RATIO 1.7 (1.0-2.2); BILIRUBIN,TOTAL 1.3 mg/dL (0.2-1.0); CALCIUM 9.2 mg/dL (8.5-10.3); CREATININE 0.8 mg/dL (0.6-1.3); POTASSIUM 3.9 mmol/L (3.5-4.5); TOTAL PROTEIN 7.2 g/dL (6.4-8.9)
--- NOTE | 2024-08-30 19:08 | CT Report ---
PROCEDURE: CT Angio Head/Neck INDICATIONS: possible stroke, seizure CONTRAST: IV contrast TECHNIQUE: After the administration of intravenous contrast, 1 mm thick sections acquired from the aortic arch through the [place] of [place]. 3-dimensional uubyyli-wbjxnhhag-komxqjcqrt (MIP) and/or volume rendering reformats were acquired of the central intracranial vasculature and neck separately. COMPARISON: 07/21/2023 FINDINGS: Image quality: Diagnostic Head angiography Anterior circulation: ICAs: Mild to moderate cavernous and supraclinoid calcifications without high- grade stenosis ACAs: Patent MCAs: Patent AComm: no aneurysm Venous sinuses: Not well assessed on this study Posterior circulation: Dominance: equal Vertebral arteries: Mild calcifications Basilar artery: Patent PComms: no aneurysm tube tester: Patent Neck angiography Aortic arch and subclavian arteries: Mild calcifications CCAs: Mild calcifications ICA origins (by NASCET criteria): Moderate to severe right origin and proximal ICA calcifications, about 70% narrowed Mild left-sided calcifications without high-grade narrowing. There are postsurgical changes on the left. ICAs: No other areas of stenosis ECAs: origins are patent. Vertebral arteries: Patent. Mild to moderate narrowing at the origins Soft tissues: no significant mass, aneurysm, or lymphadenopathy Lung apices: No clear pneumothorax Bones: There are degenerative changes. IMPRESSION: No large vessel occlusion identified. 70% stenosis is seen in the right proximal ICA. No other areas of high-grade stenosis. If there is high concern for infarction, consider MRI. The estimate of stenosis included in the report of the imaging study was calculated using the NASCET method Reviewed by: Rodney Betancourt MD on 08/30/2024 7:07 PM PDT Approved by: Rodney Betancourt MD on 08/30/2024 7:07 PM PDT Station ID: [id number]
[2024-08-30] MEDS ORDERED: levETIRAcetam 500 MG/5 ML VIAL ONE ×2 (19:16→19:19)
[2024-08-30] MEDS: LEVETIRACETAM IV STA (19:24)
[2024-08-30] MEDS: SODIUM CHLORIDE 0.9% IV STA (19:24)
--- NOTE | 2024-08-30 19:30 | ED Physician Documentation ---
ED Addendum Addendum Addendum: I received sign-out/turnover of care on this patient from Dr. Galvez; please see his note for complete H+P. For most of my shift, the patient was obtunded, minimal response to painful stimulus (sternal rub). He is protecting his airway and exhibits spontaneous respirations. He is given IV magnesium sulfate for 1.0 magnesium level, and then a second dose of IV MgSO4 when repeat magnesium level is 1.4. Initial lactate 2.6, normal on repeat (0.8). Towards the end of my shift, the patient gradually exhibited some degree of improvement in his mental status; he was waking with less noxious stimuli, eventually would wake with gentle tactile (shoulder tap), and, at the end of my shift, even waking with verbal stimulation. However, not following any commands throughout the entirety of my overnight shift. He is making increasingly frequent eye contact towards the end of my shift on multiple reevaluations. Patient did not exhibit any seizure-like activity during my overnight shift. No beds available at [facility] on my overnight shift. Care of patient is turned over to oncoming ED physician (Dr. Hammer) at the end of my shift, plan to obtain brain MRI. Discharge Plan Discharge Prescriptions: No Action tamsulosin 0.4 MG capsule 0.4 mg PO DAILY PM oxybutynin chloride [Ditropan XL] 10 MG tablet extended release 24hr 10 mg PO DAILY Patient Comments: TAKE 1 TABLET BY MOUTH ONCE DAILY sertraline [Zoloft] 100 MG tablet 100 mg PO DAILY aspirin 81 MG tablet,delayed release (DR/EC) 81 mg PO DAILY Omeprazole 20 MG Tablet.Dr 20 mg PO DAILY mupirocin 22 APPLIC/22 GM ointment 1 appful topical BID Patient Comments: APPLY OINTMENT TOPICALLY TO AFFECTED AREAS ON FACE TWICE DAILY FOR 14 DAYS, THEN NEEDED Rx Instructions: APPLY OINTMENT TOPICALLY TO AFFECTED AREAS ON FACE TWICE DAILY FOR 14 DAYS, THEN NEEDED amlodipine 5 MG tablet 5 mg PO DAILY Qty: 30 0RF cyanocobalamin (vitamin B-12) 500 MCG tablet 500 mcg PO DAILY Qty: 30 0RF ferrous sulfate 325 MG tablet 325 mg PO DAILYWM Qty: 30 0RF amoxicillin-pot clavulanate 1 TAB tablet 1 tab PO Q12H 5 Days Qty: 10 0RF cholecalciferol (vitamin D3) 25 MCG tablet 50 mcg PO DAILY Qty: 30 0RF Print Language: Armenian Stand Alone Forms: PCP List
[2024-08-30 19:43] LABS: ETOH - ETHANOL < 10.0 mg/dL
[2024-08-30] MEDS ORDERED: THIAMINE 100 MG/1 ML 2 ML MDV ONE (19:46)
[2024-08-30] MEDS ORDERED: FOLIC ACID 5 MG/1 ML 10ML MDV ONE (19:46)
[2024-08-30] MEDS: THIAMINE INJ 100 MG, FOLIC ACID INJ 1 MG in SODIUM CHLORIDE 0.9% 1,000 ML IV STA (19:47)
[2024-08-30] MEDS: MAGNESIUM SULFATE 2 GRAM 2 GM/50 ML BAG IV ONE (19:58)
[2024-08-30 23:03] LABS: BILIRUBIN,URINE NEGATIVE (NEGATIVE); GLUCOSE, URINE (UA) NEGATIVE (NEGATIVE); KETONES,URINE (UA) TRACE mg/dL (NEGATIVE); LEUKOCYTE ESTERASE, URINE NEGATIVE (NEGATIVE); NITRITE,URINE NEGATIVE (NEGATIVE); OCCULT BLOOD,URINE TRACE-INTA (NEGATIVE); PROTEIN,URINE 30 mg/dL (NEGATIVE); UROBILINOGEN,URINE 1 (NORMAL) E.U./dL (NORMAL)
[2024-08-30 23:11] LABS: CLARITY,URINE CLEAR (CLEAR); RBC,URINE 0-5 /HPF (0-5); SQUAMOUS EPITHELIAL CELL,UR RARE Squamous (<= Few); WBC,URINE 0-3 /HPF (0-3)
[2024-08-30 23:12] LABS: BACTERIA,URINE Many /HPF (None Seen)
[2024-08-31] MEDS: MAGNESIUM SULFATE 2 GRAM 2 GM/50 ML BAG IV ONE ×2 (04:49→15:21)
[2024-08-31 04:58] LABS: BASOPHILS % (AUTO) 0.4 %; EOSINOPHILS # (AUTO) 0.1 10^3/uL (0.0-0.7); EOSINOPHILS % (AUTO) 0.7 %; HCT - HEMATOCRIT 40.3 % (42.0-52.0); HGB - HEMOGLOBIN 14.2 g/dL (14.0-18.0); LYMPHOCYTES % (AUTO) 12.6 %; MEAN CORPUSCULAR HEMOGLOBIN 32.6 pg (27.0-31.0); MEAN CORPUSCULAR HGB CONC 35.2 g/dL (32.0-36.0); MEAN CORPUSCULAR VOLUME 92.6 fL (80.0-94.0); MEAN PLATELET VOLUME 9.9 fL (7.4-11.4); MONOCYTES # (AUTO) 0.6 10^3/uL (0.0-1.0); MONOCYTES % (AUTO) 7.4 %; NEUTROPHILS # (AUTO) 5.9 10^3/uL (1.5-6.6); NEUTROPHILS % (AUTO) 78.5 %; PLT - PLATELET COUNT 117 10^3/uL (130-450); RED BLOOD COUNT 4.35 10^6/uL (4.70-6.10); RED CELL DISTRIBUTION WIDTH 13.1 % (12.0-15.0); WHITE BLOOD COUNT 7.6 x10^3/uL (4.8-10.8)
[2024-08-31 05:33] LABS: CALCIUM 8.4 mg/dL (8.5-10.3); CREATININE 0.7 mg/dL (0.6-1.3); POTASSIUM 3.9 mmol/L (3.5-4.5)
--- NOTE | 2024-08-31 11:56 | PHARMACY PROGRESS NOTE ---
Best Possible Medication History Admit Date and Time: Home Medications Medication Instructions Recorded Confirmed Type tamsulosin 0.4 mg capsule 0.4 mg PO BID 04/15/2008/31 History aspirin 81 mg tablet,delayed 81 mg PO QAM 05/09/20 History release oxybutynin chloride 10 mg 10 mg PO DAILY 05/09/2008/06 History tablet,extended release 24 hr (Ditropan XL) omeprazole 20 mg capsule,delayed 20 mg PO QAM 08/31/24 08/31/24 History release sertraline 50 mg tablet 50 mg PO QAM 08/31/24 History Processed by: Pharmacy (Medication reconciliation completed by [employer] Games ManagerSri) Medications reviewed in ED?: Yes Medication History completed: Yes Patient Interview: Completed Secondary Source(s): Spouse/Significant other and Insurance records [facility] Statement: As the person ultimately responsible for medication therapy, providers are able to order a medication from an existing home medication list in [facility] via the "Reconcile Routine" prior to Confirmation of that medication by software support representative. Such practice is discouraged except when the physician, in their clinical judgment, deems that a medical need exists for a medication without regard to previous use.
[2024-08-31] MEDS: cefTRIAXone 1 GM VIAL IVP STA (15:21)
[2024-08-31] MEDS: SODIUM CHLORIDE 0.9% 1,000 ML IV STA (15:21)
--- NOTE | 2024-08-31 15:28 | ED Physician Documentation ---
ED Addendum Addendum Addendum: The patient was passed off on change of shift with impression of likely new stroke versus new onset seizures or both. The patient reportedly had witnessed seizure unilaterally and has been fairly obtunded or poorly interactive. Seems to have weakness on both sides with a prior history of just weakness on the right from her prior stroke. His was present in the room this morning and she states he does have conversation ability of reasonable sentence structure and cognition and has been able to get around with a walker but has right weakness and some cognitive deficiency related to a prior stroke. She states his current condition is significantly altered from that acutely. He had had labs showing a low magnesium. No other obvious acute process. CTA and CT angio of the head did not show any acute stroke or structural abnormalities nor limited significant blood flow. MRI was ordered for this morning but the MRI machine is down. The patient's POLST does say comfort measures and when I talked with his , she was okay with evaluations to try to distinguish what was going on a little bit better. At this point we are unable to get the MRI right now but cognitively and without other acute process, it is reasonable to assume a central process. The patient had been loaded with Keppra reasonable dose and could be having some persistent cognitive problem from the loading dose and effect of the medicine perhaps. I did talk with the hospitalist for advice though we do not have any beds available as of yet. Suggestion was for OT PT to evaluate and try to assess on level of function and also a echocardiogram to ensure no obvious cardiac cause. At this point a hospital bed is now available and we may look at hospitalist to place the patient in the hospital for further evaluation. He is maintaining some IV fluids for hydration. Physical therapy will come to evaluate. The echocardiogram is done and I am awaiting results. Discharge Plan Discharge Prescriptions: No Action tamsulosin 0.4 MG capsule 0.4 mg PO BID aspirin 81 MG tablet,delayed release (DR/EC) 81 mg PO QAM omeprazole 20 mg capsule,delayed release(DR/EC) 20 mg PO QAM sertraline 50 mg tablet 50 mg PO QAM Patient Comments: TAKE 1 TABLET BY MOUTH ONCE DAILY oxybutynin chloride 10 mg tablet extended release 24hr 10 mg PO QPM Print Language: Maori Stand Alone Forms: PCP List
--- NOTE | 2024-08-31 16:01 | PT Plan of Care ---
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 Treated w abx and went to SNf for rehab GERD (gastroesophageal reflux disease) BPH loc w urin obs/LUTS Psoriasis CAD (coronary artery disease) remote hx of [place] Hearing loss LONNIE on CPAP CVA (cerebral vascular accident) Subdural hemorrhage 10/2020. 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 Transferred to [facility]. R residual. Fall since then. Surgical History (Updated 08/31/24 @ 17:49 by Tessa Hernandez MD) Stented coronary artery Knee joint replacement status BALANCE/FUNCTIONAL RESULTS Sitting Balance: Unable Standing Balance: Unable ASSESSMENT Assessment: Pt is an 84yo M referred for PT eval d/t AMS and recent GLF. In ED for stroke vs seizure rule out; MRI down so imaging not completed. Per chart review, pt was [place] at baseline using walker and had R sided weakness d/t h/o CVA. Lives with who assists with ADLs/IADLs as needed. Pt cleared for PT eval by referring MD. Bed level assessment only d/t hypertension (BP 182/103) and pt disoriented. Unable to visually track across midline, excess oral motor activity, unable to follow skilled multimodal cueing. Mild LUE chorea, some volitional LLE AROM after PROM and stretch reflex, rigid RUE/RLE with absent active motion and motor activation. Pt demonstrates inability to clear secretions; positioned in upright and RN provided suction. Pt is not safe for out of bed assessment at this time d/t above impairments. Will benefit from MRI or other to determine cause of symptoms. When medically stable, out of bed evaluation can be completed to determine rehab potential. PLAN Frequency: 1-2x/day Duration: TBD pending med stability DISCHARGE RECOMMENDATIONS Discharge Location: Undetermined Transport Needs at Discharge: [facility]
--- NOTE | 2024-08-31 16:22 | ED Physician Documentation ---
ED Addendum Addendum Addendum: Patient is a 84-year male that is signed out to me awaiting admission. Reportedly he is an 84-year-old male with a history of stroke, residual deficits of the right sided weakness and aphasia but is usually able to ambulate with a walker. Reportedly had multiple seizures yesterday. Given Keppra. More awake today but still having significant difficulty speaking and unable to swallow. PT saw the patient and is unable to ambulate or follow commands. Discussed the case with Dr. Hernandez, hospitalist who will review the patient. MRI not available today due to equipment failure, expected to be available tomorrow. Patient is unable to tolerate anything by mouth. Will need IV hydration. Will need assessment for ongoing hydration/nutritional needs as he cannot speak or swallow at this time. This document was made in part using voice recognition software. While efforts are made to proofread this document, sound alike and grammatical errors may occur. Discharge Plan Discharge Patient Disposition: ED Place in Observation Condition: Stable Clinical Impression: Witnessed seizure-like activity Altered mental status Qualifiers: Altered mental status type: unspecified Qualified Code(s): R41.82 - Altered mental status, unspecified Interventions: ED Admission Assessment Last Done: 08/31/24 17:53
--- NOTE | 2024-08-31 16:40 | ECHO Report ---
Version: 1 Study ID: [id number] [id number] Adult Echocardiogram Report Name: ZOYA ESPARZA Study Date: 08/31/2024, 1: 48 PM BP: 196 / 100 mmHg Patient Location: ED HR: 62 bpm : 1940 (MM/DD/YYYY) Gender: Male Height: 71 in Age: 84 Years Weight: 214.069 lb Reason For Study: CVA symptoms History: CVA symptoms Procedure: A focused 2D and Doppler study was performed. Indication: Evaluate cardiac and valve function. This study was focused secondary to limited cardiac windows. The patient was uncooperative throughout the procedure, causing significant difficulties in image acquisition. No images from left chest - all images acquired from right parasternal, right axilla, and subcostal. Very technically difficult and limited study. Interpretation Summary The left ventricle is dilated. There is mild concentric increase in the wall thickness of the left ventricle. Global left ventricular systolic function is moderately decreased at 30 to 35%. The right ventricle is dilated. The ascending aorta is mildly dilated at 4.4 cm. The aorta at the level of the sinuses of Valsalva is moderately dilated at 4.5cm. Left Ventricle: The left ventricle is dilated. There is mild concentric increase in the wall thickness of the left ventricle. Global left ventricular systolic function is moderately decreased. The visual left ventricular ejection fraction is estimated at 30 to 35%. Diastolic function could not be accurately assessed due to unobtainable data. Right Ventricle: The right ventricle is dilated. In limited views, RV function appears preserved. Aortic Valve: The aortic valve was not evaluated on this study. Mitral Valve: The mitral valve was not evaluated on this study. Tricuspid Valve: The tricuspid valve is normal in structure and function. Mild tricuspid regurgitation present. Pulmonic Valve: The pulmonic valve is normal in structure and function. Trace pulmonic valvular regurgitation is present. Left Atrium: The left atrium is not well visualized. Right Atrium: Right atrium not well visualized. The inferior vena cava is mildly dilated with mildly decreased collapse with sniff (estimated right atrial pressure 10-15mmHg). Atrial Septum: Lipomatous hypertrophy of the interatrial septum is present. Aorta: The ascending aorta is mildly dilated. The diameter of the ascending aorta is 4.4 cm. The aortic annulus measures 4.5cm in diameter. The aorta at the level of the sinuses of Valsalva is moderately dilated (4.5 to 5.0cm). Pulmonary Artery: Main PA is dilated. Pericardium/Pleural Space: There is no pericardial effusion. CPT Codes: 24251/[id number]: Color Doppler flow. [id number]: Spectral Doppler, limited. [id number]: Transthoracic Echo without spectral or color Doppler, Limited. Doppler Measurements & Calculations RAP systole: 15.0 mmHg TR max P.7 mmHg TR max charles: 272.7 cm/sec MMode/2D Measurements & Calculations Ao root diam: 4.5 cm EF (est.): 16.6 % Heart Rate: 62.0 BPM Height (metric): 180.3 cm IVSd: 1.17 cm LVIDd: 5.6 cm LVIDs: 5.0 cm LVPWd: 1.19 cm Systolic Pressure: 196.0 mmHg Other Measurements & Calculations Ao root diam: 4.5 cm BMI: 29.9 kilograms/m² BSA: 2.17 m² BSA([facility]): 2.23 m² Diastolic Pressure: 100.0 mmHg EDV(Teich): 152.7 ml EF (est.): 16.6 % EF(Teich): 22.7 % ESV(Teich): 118.0 ml FS: 10.5 % Heart Rate: 62.0 BPM Height (metric): 180.3 cm IVSd: 1.17 cm LVIDd: 5.6 cm LVIDs: 5.0 cm LVPWd: 1.19 cm RAP systole: 15.0 mmHg RVSP(TR): 44.7 mmHg Systolic Pressure: 196.0 mmHg TR max P.7 mmHg TR max charles: 272.7 cm/sec TV max P.7 mmHg Weight (metric): 97.1 kg EF(sp-el): 50.0 % MD Leeanne Velazquez 08/31/2024, 4: 40 PM Ordering Physician: Niels Hammer Performed By: Susan Ferguson RDCS
--- NOTE | 2024-08-31 17:28 | HISTORY & PHYSICAL EXAMINATION ---
Chief Complaint Chief Complaint Chief Complaint: confusion and lethargy after seizure History of Present Illness Admitted From Admitted From:: home>er since 08/30 History Obtained From Records Reviewed: [facility] History obtained from: Dr. Hammer Exam Limitations: patient is confused and sleepy History of Present Illness HPI Comment/Other: The patient presented to the emergency room August 30 with a Yareli Coma Scale of 3. He had gone to the bathroom and had been gone for a few hours with last known normal 3 PM when the decided she needed to go find him in the house. She was in another part of the house. She found him seizing and collapsed outside their bedroom. She said that she thinks that he seized about 3 times and was unresponsive. His right arm and leg were jerking and his eyes were moving [id number] in his head. He is a DO NOT RESUSCITATE DO NOT INTUBATE. She called the ambulance. Code stroke was initiated and he was brought to the emergency room by approximately 6:30 PM. The emergency room provider noted that he had a history of stroke with residual right-sided weakness and aphasia, benign prostatic hypertrophy, hypertension, and coronary artery disease. At baseline his speech is usually clear. He has problems with memory. Drinks 2 glasses of wine a day. Occasionally has word finding difficulties. In the ER, he was hypertensive. He had a leftward gaze preference, unresponsive, and continued to have rhythmic seizure-like movements of the right lower extremity. Not able to follow commands. Could not speak when requested. Pupils were reactive to light. Mildly hyponatremic at 133 but that is his baseline. Anion gap was 17. Lactic acid 2.6. Magnesium low at 1.0. CK3 38. White cell count was normal at 8.5. No anemia. His urinalysis did not have a UTI. No culture will be done. He did have many urine bacteria but squamous cells. 0-3 white cells, and 0-5 red cells. Leukocyte Estrace negative. Imaging of his head has his old stroke but no acute changes. He has an old left parietal infarct. The patient was loaded with Keppra and given empiric treatment for possible UTI. He continued to be minimally responsive, sleepy. Magnesium was supplemented IV. Follow-up lactic acid was normal at 0.8. There are no beds in the hospital so the patient could not be placed in observation. He stayed in the emergency room overnight and began waking up. He was waking with out stimuli. He would wake with gentle shake of his shoulder and having verbal replies that were appropriate. But he was not following commands. Eye contact was now present. By this afternoon he is still sleepy. Spends most of the day sleeping but will wake up when you tap her shoulder or call his name. When I saw him he smiles spontaneously when I walked in the room to introduce myself. But speech is still not normal. states that he has normal speech function with memory loss and that is not present right now. His responses were monosyllabic. Since the patient has hypertension, and the continued altered mental status with postictal presentation to the ER yesterday, I think he should be monitored for his confusional state of disorientation and difficulty following commands with the new deficit and following commands until he is to baseline. If he does not respond to just simple observation measures overnight, I will have to discuss what the family has planned. Meds/Allgy Home Medications Ambulatory Orders Medication Instructions Recorded Confirmed tamsulosin 0.4 mg capsule 0.4 mg PO BID 04/15/2008/31 aspirin 81 mg tablet,delayed 81 mg PO QAM 05/09/20 release omeprazole 20 mg capsule,delayed 20 mg PO QAM 08/31/24 08/31/24 release oxybutynin chloride 10 mg 10 mg PO QPM 08/31/24 tablet,extended release 24 hr sertraline 50 mg tablet 50 mg PO QAM 08/31/24 Allergies Allergies Allergy/AdvReac Type Severity Reaction Status Date / Time No Known Drug Allergies Allergy Verified 08/30/24 18:38 PFSH Active Problems All Active Problems (Updated 08/31/24 @ 17:56 by Tessa Hernandez MD) Do not resuscitate (Acute) Post-ictal confusion (Acute) Witnessed seizure-like activity (Acute) Altered mental status (Acute) Medical History Medical History (Updated 08/31/24 @ 17:56 by Tessa Hernandez MD) Normal colonoscopy Osteoarthritis Aspiration into airway had dental procedure 07/2023 with AMS 2 hours after home, CXR with large R lung opacity. Treated w abx and went to SNf for rehab GERD (gastroesophageal reflux disease) BPH loc w urin obs/LUTS Psoriasis CAD (coronary artery disease) remote hx of [place] Hearing loss LONNIE on CPAP CVA (cerebral vascular accident) Subdural hemorrhage 10/2020. 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 Transferred to [facility]. R residual. Fall since then. Surgical History Surgical History (Updated 08/31/24 @ 17:49 by Tessa Hernandez MD) Stented coronary artery Knee joint replacement status Social History Social History Smoking Status: Never smoker If you are a former smoker, when did you quit? (Date/Year): n/a Number of Years Smoked: 0 How many cigarettes a day do you smoke? (20 cigarettes=1 Pk): 0 Do you dip or chew tobacco?: No Do you vape?: No Patient requests smoking cessation consult: No Initiate information on smoking cessation: No Living arrangement: At home Living Condition: With spouse/s.o. Relationship: Spouse Level: Assisted Home Mobility Equipment: Walker Do you feel safe in your home environment?: Yes Suffered physical, verbal, emotional, or financial abuse?: No History of Abuse: No Frequency: Daily POLST Patient has POLST: No POLST Status: DNR Review of Systems Status of ROS: unobtainable due to medical condition Exam Exam Vital Signs: Vital Signs x48h Temp Pulse Pulse Resp BP BP Pulse Ox 08/31/24 17:50 88 18 190/104 H 98 08/31/24 15:53 76 18 182/103 H 95 08/31/24 15:30 76 182/103 H 08/31/24 14:00 70 18 179/99 H 94 08/31/24 12:00 61 18 191/103 H 99 08/31/24 10:49 36.4 C L 70 14 154/91 H 100 O2 Flow Rate 08/31/24 17:50 08/31/24 15:53 08/31/24 15:30 08/31/24 14:00 08/31/24 12:00 08/31/24 10:49 2 Constitutional normal general appearance Elderly gentleman 5 foot 11 inches tall, 97.1 kg, sitting up in bed that spontaneously smiles when I walk in the room. Eyes meet my gaze and he nods his head up and down when I say hello. He occasionally will say yes or no when I ask questions but no spontaneous speech or conversation. HENMT normocephalic and oral mucous membranes normal Unable to swallow. At one test he is drooling, had a second test he coughed as he tried to swallow water. Eyes PERRL Neck/C-Spine cervical full ROM noted Respiratory breath sounds equal bilaterally, normal respiratory effort and clear to auscultation bilaterally Cardiovascular normal heart rate noted and regular rhythm noted Gastrointestinal abdomen normal to inspection, abdomen soft to palpation, nontender to palpation and nontender to percussion Genitourinary bladder normal to palpation Back/Pelvis spine normal to inspection, no thoracic spine tenderness and no lumbar spine tenderness Extremities normal to inspection Neurology Right facial droop, right body weakness in comparison to left body. But overall disabled elderly gentleman that cannot sit up on his own. Having difficulty swallowing when I tested him with ice. He coughs. Yes or no answers but no spontaneous conversation. Psychiatry cooperative, psychomotor abnormality noted and memory abnormal Skin skin color normal and no rash Conclusion/Plan Problem List (1) Post-ictal confusion: Plan: Differential diagnosis for patient who is still confused like this would include infection or drug effect. But infection has been carefully evaluated by the ER providers, and his new medication of Keppra, while sedated, should not cause this prolonged episode of aphasia or dysphagia. I presume he may have had a small stroke leading to stroke that the CT scan is not finding, or he may have a prolonged postictal phase. We cannot do an MRI because our scanner is down. wants to emphasize DO NOT RESUSCITATE DO NOT INTUBATE status with a focus on comfort measures not aggressive measures. As such I am not seeking transfer to higher level of care for an MRI. I will place the patient in observation. Continue to monitor on telemetry to make sure that the nonsustained V. tach is not problematic. Recheck labs tomorrow morning. If still not back to baseline, I will have to have a conversation with family about what placement will be for this elderly disabled gentleman. (2) Witnessed seizure-like activity: Plan: Most likely focus is new stroke as yet and seen on CT or irritation of nidus of old scar tissue. 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 He has already been loaded with Keppra. I will start Keppra 500 mg p.o. twice daily and increase dosing as needed. (3) Do not resuscitate: Plan: I have not spoken to his and ER and social work state he is DNR. I will make contact with her to establish care plans for tomorrow. Lab Results 08/31/24 04:52 08/31/24 04:52
[2024-08-31] MEDS ORDERED: oxyCODONE 5 MG TABLET PO PRN (18:08)
[2024-08-31] MEDS ORDERED: ACETAMINOPHEN 325 MG TABLET PO PRN (18:08)
[2024-08-31] MEDS ORDERED: ONDANSETRON ODT 4 MG TABLET TL PRN (18:08)
[2024-08-31] MEDS ORDERED: ONDANSETRON 4 MG/2 ML VIAL IVP PRN (18:08)
[2024-08-31] MEDS: MORPHINE 2 MG/ML CARPUJECT IVP PRN (18:20)
[2024-08-31] MEDS: SODIUM CHLORIDE 0.9% 1,000 ML IV SCH (18:27)
[2024-08-31] MEDS: SERTRALINE 50 MG TABLET PO SCH (21:39)
[2024-08-31] MEDS: ASPIRIN EC 81 MG TABLET PO SCH (21:39)
[2024-08-31] MEDS: levETIRAcetam 250 MG TABLET PO SCH (21:40)
[2024-08-31] MEDS: TAMSULOSIN 0.4 MG CAPSULE PO SCH (21:40)
[2024-08-31] MEDS: levETIRAcetam INJ 500 MG in SODIUM CHLORIDE 0.9% 100ML 100 ML IV SCH (22:14)
[2024-09-01] MEDS: SODIUM CHLORIDE FLUSH 0.9% 10 ML SYRINGE IVP SCH (01:14)
[2024-09-01 04:36] LABS: BASOPHILS % (AUTO) 0.2 %; EOSINOPHILS % (AUTO) 0.1 %; HCT - HEMATOCRIT 44.3 % (42.0-52.0); HGB - HEMOGLOBIN 15.8 g/dL (14.0-18.0); LYMPHOCYTES # (AUTO) 0.4 10^3/uL (1.5-3.5); LYMPHOCYTES % (AUTO) 3.8 %; MEAN CORPUSCULAR HEMOGLOBIN 32.5 pg (27.0-31.0); MEAN CORPUSCULAR HGB CONC 35.7 g/dL (32.0-36.0); MEAN CORPUSCULAR VOLUME 91.2 fL (80.0-94.0); MEAN PLATELET VOLUME 9.7 fL (7.4-11.4); MONOCYTES # (AUTO) 0.7 10^3/uL (0.0-1.0); MONOCYTES % (AUTO) 5.9 %; NEUTROPHILS # (AUTO) 9.9 10^3/uL (1.5-6.6); NEUTROPHILS % (AUTO) 89.3 %; PLT - PLATELET COUNT 128 10^3/uL (130-450); RED BLOOD COUNT 4.86 10^6/uL (4.70-6.10); RED CELL DISTRIBUTION WIDTH 12.9 % (12.0-15.0); WHITE BLOOD COUNT 11.1 x10^3/uL (4.8-10.8)
[2024-09-01 04:47] LABS: CALCIUM 8.4 mg/dL (8.5-10.3); CREATININE 0.5 mg/dL (0.6-1.3); POTASSIUM 3.8 mmol/L (3.5-4.5)
[2024-09-01] MEDS: SOLIFENACIN SUCCINATE 5 MG TABLET PO SCH (09:08)
[2024-09-01] MEDS: METOPROLOL 5 MG/5 ML VIAL IVP STA (10:14)
[2024-09-01] MEDS: METOPROLOL SUCCINATE 25 MG TABLET PO SCH (11:17)
[2024-09-01] MEDS: levETIRAcetam 500 MG/5 ML VIAL IVP SCH (11:20)
--- NOTE | 2024-09-01 13:42 | OT Plan of Care ---
OT Plan of Care OT Plan of Care: Diagnosis Diagnosis AMS/GLF Diagnosis seizure vs CVA Chief Complaint confusion, limited mobility Onset of Chief Complaint [employer]BULETT[employer]IVER Surgical History (Updated 08/31/24 @ 17:49 by Tessa Hernandez MD) Stented coronary artery Knee joint replacement status Medical History (Updated 08/31/24 @ 17:56 by Tessa Hernandez MD) Normal colonoscopy Osteoarthritis Aspiration into airway had dental procedure 07/2023 with AMS 2 hours after home, CXR with large R lung opacity. Treated w abx and went to SNf for rehab GERD (gastroesophageal reflux disease) BPH loc w urin obs/LUTS Psoriasis CAD (coronary artery disease) remote hx of [place] Hearing loss LONNIE on CPAP CVA (cerebral vascular accident) Subdural hemorrhage 10/2020. 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 Transferred to [facility]. R residual. Fall since then. Assessment Assessment Pt is an 84yo M adm to ED on 08/30 d/t AMS and ? seizure activity. In ED for stroke vs seizure rule out; Head CT (-) acute cva; Awaiting MRI results. call center specialist MD clearing pt for therapy assessment. Per chart review, pt was Bijan at baseline using walker and had R sided weakness d /t h/o CVA. Hypertensive but controlled as of . Met supine in bed, eyes open to name, restless. Deconjugate gaze, resting R gaze preference Pt will cross midline to track therapist to L visual field with heavy multisensory cues. Will attend to therapist for short periods of time. Attempts of non-sensical vocalizations, however appears in responsive attempt to questions Unable to establish use of Y/N head nods to personally relevant questions. Excessive secretions which pt is unable to manage, requires consistent suction. No command following noted despite cues and increased time. L UE purposeful, automatic movement (reaching for R hand, grabbing face and gown). R UE minimal active movement in hand only. Generalized response to noxious stim in all 4 limbs. DEP rolling R<>L for brief change and bedding change. Overall presents with decreased cognition, visual perception, strength , coordination, endurance, activity tolerance and ADL status. Will benefit from cont OT services during acute stay. Rec d/c to SNF at this time. Goals - Activities of Daily Living Improve Upper Extremity Minimal Assist Dressing to: Improve Lower Extremity Minimal Assist Dressing to: Improve Grooming/Hygiene to: Minimal Assist Improve Bathing to: Minimal Assist Improve Toileting to: Minimal Assist Goals - Upper Extremity Function Goals Improve Strength to: [ Good Bilateral] Improve Dexterity/Coordination Fair to: [Bilateral] Plan Treatment Frequency 2 to 3 times/week Duration Until discharge -Discharge Recommendations Discharge Location [facility] Facility Support/Services Needed With assist Recommended Equipment Raised Toilet Seat,Commode,Grab bars,Shower/bath chair,Adaptive Self Care Devices,Other Transport Needs at Discharge [facility]
--- NOTE | 2024-09-01 15:01 | PROVIDER PROGRESS NOTE ---
Progress Note Progress Note Progress Note: September 01, 2024 2:50 PM The patient has not really woken up. He still lethargic. Gets intermittently hypertensive to over 200 systolic. I had to give him IV metoprolol as well as p.o. metoprolol and his blood pressure now 171/91. No focal deficits. But he is not swallowing. I had been thinking that this gentleman had a postictal altered mental status but it is now over 24 hours and he is still with altered mental status from his baseline. He is really unable to give me any decent history. reiterates he is able to walk with a walker, feed himself, and go to the bathroom with min assist at home. On exam blood pressure is 171/91, pulse 71, respirations 18, temperature 36.7, O2 sat 99% on room air. His speech, when he does respond, is garbled. I do not understand them. Mostly he is lethargic and does respond to noxious stimuli. He withdraws and winces when I do a sternal rub. but then he will open his eyes and smile at his family. He will use the yankauer to suction his mouth from the gurgling phlegm and can't be swallowed. Coarse upper airway breath sounds. Supple neck. Lungs have that coarse upper airway sounds from someone who is snoring but no crackles rhonchi or wheezing or tachypnea or use of accessory muscles. He has a regular rate and rhythm with a systolic ejection murmur. Abdomen is soft, nontender with normal bowel sounds are hypoactive. He has a condom catheter due to his urinary incontinence. Neurologically he is opening his eyes to stimuli. Garbled speech when I ask him questions. He does occasionally meet my gaze. He has extremity weakness on the right side of his body. Right facial droop. Is a complete assist. Cannot swallow because of dysphagia. Today's labs shows a sodium of 127. It is down from yesterday where he was 133. Chloride is still low at 93. BUN is 8, creatinine 0.5, glucose 135, calcium 8.4. White cell count has come up. In the ED was 8.5 and he is 11.1 today. Hemoglobin is 15.8. Platelets are low at 128. They have been intermittently low in the past. This is stable for him. Conclusion/Plan Problem List (1) Post-ictal confusion and probable stroke: Plan: Differential diagnosis for patient who is still confused like this would include infection or drug effect. But infection has been carefully evaluated by the ER providers, and his new medication of Keppra, while sedating, should not cause this prolonged episode of aphasia or dysphagia. I continue to conclude he may have had a small stroke leading to seizure that the CT scan is not finding with a prolonged postictal phase. We cannot do an MRI because our scanner is down. wants to emphasize DO NOT RESUSCITATE DO NOT INTUBATE status with a focus on comfort measures not aggressive measures. As such I am not seeking transfer to higher level of care for an MRI. I explained that it wouldn't change my management. Since he is NOT waking up and continues to have altered mental status, I am changing him to inpatient. So far telemetry does not show arrhythmia. I will add SL ASA since he can't swallow but cannot add statin for now. I am allowing permissive hypertension and started metoprolol IV and I tried to give po as well to bring his systolic below 180. So far it's working with the IV dose, since he was 210 this morning. PT and OT will try to work with him. They stated he is so weak, it was difficult this morning. (2) Aphasia and dysphagia I have changed him to NPO since he has aspiration risk, and I have changed his Keppra from po to IV. 45-minute conversation with his family about this current episode of care, my diagnosis, and prognosis. If he has some recovery of swallowing function, he may be able to eat in the next day or 2. If he does not, we then need to plan for a patient to his lab able to maintain his own nutrition. Both and daughter state that dad would never want to be this disabled. He probably would not want to be here. Son says he never heard that say that but he does not disagree with mom or sister. They are dubious that tube feedings would be an option. They ask what would happen if he were not to recover, could not swallow. I explained that most likely he would be discharged to either a correction with comfort measures only and no further hospitalizations or to home with hospice but she will need help with caregivers. They will wait the next 48 hours to see how he does and will make their decisions accordingly. For now, I can't give statin, citalopram, vesicare, flomax po. (3) Hypertension as above. (4) Witnessed seizure-like activity: Plan: Most likely focus is new stroke as yet and seen on CT or irritation of nidus of old scar tissue. 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 I am changing his meds to IV since can't take po. He has already been loaded with Keppra. I have started Keppra 500 mg IV twice daily and increase dosing as needed. (5) Do not resuscitate: Plan: His states those are his wishes. Current Medications Current Medications Current Medications: Current Medications Generic Name Dose Route Start Last Admin Trade Name Freq PRN Reason Stop Dose Admin Acetaminophen 650 mg 08/31/24 18:08 Acetaminophen 325 Mg Tablet PO Q4HR PRN Pain 1 to 4, or Fever Aspirin 81 mg 08/31/24 18:00 09/01/24 09:08 Aspirin Ec 81 Mg Tablet PO Not Given DAILY MAGI Sodium Chloride 1,000 mls @ 100 mls/hr 08/31/24 18:08 09/01/24 14:14 Normal Saline 0.9% IV 100 mls/hr .Q10H MAGI Administration Levetiracetam 500 mg/ Sodium 105 mls @ 400 mls/hr 08/31/24 22:00 08/31/24 22:50 Chloride IV 09/01/24 21:59 Infused ONCE MAGI Infusion Levetiracetam 500 mg 09/01/24 11:00 09/01/24 11:20 Levetiracetam 500 Mg/5 Ml Vial IVP 500 mg BID MAGI Administration Lorazepam 0.5 mg 09/01/24 13:43 Lorazepam 2 Mg/Ml Vial IVP Q2H PRN delirium Metoprolol Succinate 25 mg 09/01/24 10:00 09/01/24 11:17 Metoprolol Succinate 25 Mg Tablet PO Not Given DAILY MAGI Morphine Sulfate 2 mg 08/31/24 18:12 09/01/24 13:44 Morphine 2 Mg/Ml Carpuject IVP 2 mg Q2HR PRN Administration Severe Pain (Level 7-10) Ondansetron HCl 4 mg 08/31/24 18:08 Ondansetron Odt 4 Mg Tablet TL Q6HR PRN Nausea / Vomiting Ondansetron HCl 4 mg 08/31/24 18:08 Ondansetron 4 Mg/2 Ml Vial IVP Q6HR PRN Nausea / Vomiting Oxycodone HCl 5 mg 08/31/24 18:08 Oxycodone 5 Mg Tablet PO Q4HR PRN Pain 5 to 7 Sertraline HCl 50 mg 08/31/24 18:08 09/01/24 09:08 Sertraline 50 Mg Tablet PO Not Given DAILY [facility] Sodium Chloride 10 ml 08/31/24 18:08 Sodium Chloride Flush 0.9% 10 Ml Syringe IVP PRN PRN NEEDED PER PROVIDER ORDERS Sodium Chloride 10 ml 09/01/24 01:00 09/01/24 09:08 Sodium Chloride Flush 0.9% 10 Ml Syringe IVP Not Given 0100,0900,1700 [facility] Solifenacin 10 mg 09/01/24 09:00 09/01/24 09:08 Solifenacin Succinate 5 Mg Tablet PO Not Given DAILY [facility] Tamsulosin HCl 0.4 mg 08/31/24 21:00 09/01/24 09:09 Tamsulosin 0.4 Mg Capsule PO Not Given BID MAGI
[2024-09-02 05:45] LABS: BASOPHILS % (AUTO) 0.1 %; HCT - HEMATOCRIT 45.1 % (42.0-52.0); HGB - HEMOGLOBIN 15.6 g/dL (14.0-18.0); LYMPHOCYTES # (AUTO) 0.6 10^3/uL (1.5-3.5); LYMPHOCYTES % (AUTO) 5.2 %; MEAN CORPUSCULAR HEMOGLOBIN 32.2 pg (27.0-31.0); MEAN CORPUSCULAR HGB CONC 34.6 g/dL (32.0-36.0); MEAN CORPUSCULAR VOLUME 93.2 fL (80.0-94.0); MEAN PLATELET VOLUME 10.2 fL (7.4-11.4); MONOCYTES # (AUTO) 0.9 10^3/uL (0.0-1.0); MONOCYTES % (AUTO) 7.5 %; NEUTROPHILS # (AUTO) 10.6 10^3/uL (1.5-6.6); NEUTROPHILS % (AUTO) 86.5 %; PLT - PLATELET COUNT 131 10^3/uL (130-450); RED BLOOD COUNT 4.84 10^6/uL (4.70-6.10); RED CELL DISTRIBUTION WIDTH 13.2 % (12.0-15.0); WHITE BLOOD COUNT 12.2 x10^3/uL (4.8-10.8)
[2024-09-02 05:57] LABS: CALCIUM 8.8 mg/dL (8.5-10.3); CREATININE 0.6 mg/dL (0.6-1.3); POTASSIUM 3.6 mmol/L (3.5-4.5)
--- NOTE | 2024-09-02 16:23 | PROVIDER PROGRESS NOTE ---
Progress Note Progress Note Progress Note: September 02, 2024 3:30 PM was at the bedside. She states that he is getting so frustrated because he tries to communicate with her and he cannot. He is able to follow commands. He understands my instructions. But speech is garbled and completely uninterpretable. So I explained to her why his frustration is occurring. To try and just asked simple yes or no questions so that he can communicate more effectively because he can definitely do that. He is still not able to swallow. I have had to give him as needed Lopressor IV to control his blood pressure. And blood pressure staying below 180 systolic. Exam: Blood pressure is 175/97, pulse 84, respirations 20, temp 36.8, O2 sat 96% 5 foot 11 inch white male who is 93.5 kg. He is 84 years old and looks his stated age, right facial droop, garbled speech, and more alert than yesterday. He is able to track me with his eyes quite well. Occasionally exhibits left- sided neglect. But I can get him to look to the left side. Continues to not be able to swallow. Right side is much weaker than his left side but he is able to move his right hand. He is not able to lift his R arm off the bed but he is able to flex and extend his fingers. He cannot flex and extend at the wrist. He can wiggle his right toes but cannot lift the foot off the bed and can barely plantar and dorsiflex the foot. Not able to bend at the knee. He uses left hand to cloth picker his right hand and then lift it up and drop it on the bedsheet. He nods his head yes when I ask if he understands me. I explained he is in the hospital because he's had a stroke. Neck is supple with shotty adenopathy Lungs are clear with coarse upper airway sounds. He is accumulating phlegm at the base of his throat so he is occasionally gurgling and he tries to cough it up unsuccessfully. Regular rate and rhythm with a systolic ejection murmur. Abdomen is soft, nontender with normal bowel sounds. Continues to have a condom catheter for urinary incontinence. I reviewed his labs today and sodium is 130. Yesterday he was 127. Potassium normal at 3.6. BUN and creatinine are normal. Glucose is 123. White cell count continues to climb slightly. On admission he was 8.5. Yesterday he went to 11.1 and today he is 12.2. White cell count is 15.6. Conclusion/Plan Problem List (1) Left brain stroke with right weakness. This is a gentleman who has already had a stroke in that distribution and had residual weakness from 2020. He was found down with seizures by his . Down an unknown length of time. In our ER he had another seizure and has not had any further seizure since admission once he was started on seizure medications. On initial evaluation with CT of the head was negative for acute changes but over the last 48 hours he has become more alert, more interactive and is evident that he has a new hemiplegia. He has dysphagia and aphasia with this. Unable to swallow. As such I am stopping his p.o. meds which included sertraline, tamsulosin, Vesicare and omeprazole and aspirin. I am going to switch him to sublingual aspirin. I already have him on IV metoprolol to control heart rate and blood pressure. I was allowing permissive hypertension to systolic of 180. I cannot give him a statin. I will change Tylenol to IV Tylenol as needed. is slowly starting to make plans. She still states that she does not want him in a [facility] for permanent placement. If he were able to swallow he could probably go to [facility] for rehab. But if he cannot swallow, she is leaning toward hospice. The logistics are overwhelming since she knows she cannot take care of him by herself. I suggested that he may want to go to the [facility] to stay with his daughter and stay there for a few weeks until he passes away. She will let me know tomorrow morning. (2) Aphasia and dysphagia I have changed him to NPO since he has aspiration risk, and I have changed his Keppra from po to IV. 45-minute conversation with his family about this current episode of care, my diagnosis, and prognosis. If he has some recovery of swallowing function, he may be able to eat in the next day or 2. If he does not, we then need to plan for a patient to his lab able to maintain his own nutrition. Both and daughter state that dad would never want to be this disabled. He probably would not want to be here. Son says he never heard that say that but he does not disagree with mom or sister. They are dubious that tube feedings would be an option. They ask what would happen if he were not to recover, could not swallow. I explained that most likely he would be discharged to either a [facility] with comfort measures only and no further hospitalizations or to home with hospice but she will need help with caregivers. They will wait the next 48 hours to see how he does and will make their decisions accordingly. For now, I can't give statin, citalopram, vesicare, flomax po. (3) Hypertension as above. (4) Witnessed seizure-like activity: Plan: Most likely focus is new stroke as yet and seen on CT or irritation of nidus of old scar tissue. 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 I already changed his meds to IV since can't take po. He has already been loaded with Keppra. I have started Keppra 500 mg IV twice daily and increase dosing as needed. (5) Do not resuscitate: Plan: His states those are his wishes. (6) hyponatremia from dehydration. I will continue maintenance IVF and recheck daily. (7) New leukocytosis. He is not clearing his secretions and I fear he may be aspirating. I can hear the phlegm at the base of his pharynx and he's not able to bring it up. No antibiotics for now. He did have many bacteria with rare squamous on UA. I will recheck UA. This document was made in part using voice recognition software. While efforts are made to proofread this document, sound alike and grammatical errors may occur. Current Medications Current Medications Current Medications: Current Medications Generic Name Dose Route Start Last Admin Trade Name Elen PRN Reason Stop Dose Admin Aspirin 81 mg 08/31/24 18:00 09/02/24 10:18 Aspirin Ec 81 Mg Tablet PO Not Given DAILY MAGI Sodium Chloride 1,000 mls @ 100 mls/hr 08/31/24 18:08 09/02/24 10:49 Normal Saline 0.9% IV 100 mls/hr .Q10H MAGI Administration Levetiracetam 500 mg 09/01/24 11:00 09/02/24 08:15 Levetiracetam 500 Mg/5 Ml Vial IVP 500 mg BID MAGI Administration Lorazepam 0.5 mg 09/01/24 13:43 Lorazepam 2 Mg/Ml Vial IVP Q2H PRN delirium Metoprolol Tartrate 5 mg 09/02/24 15:45 Metoprolol 5 Mg/5 Ml Vial IVP Q6H PRN Systolic BP 180 Morphine Sulfate 2 mg 08/31/24 18:12 09/02/24 08:15 Morphine 2 Mg/Ml Carpuject IVP 2 mg Q2HR PRN Administration Severe Pain (Level 7-10) Ondansetron HCl 4 mg 08/31/24 18:08 Ondansetron Odt 4 Mg Tablet TL Q6HR PRN Nausea / Vomiting Ondansetron HCl 4 mg 08/31/24 18:08 Ondansetron 4 Mg/2 Ml Vial IVP Q6HR PRN Nausea / Vomiting Sodium Chloride 10 ml 08/31/24 18:08 Sodium Chloride Flush 0.9% 10 Ml Syringe IVP PRN PRN NEEDED PER PROVIDER ORDERS Sodium Chloride 10 ml 09/01/24 01:00 09/02/24 16:13 Sodium Chloride Flush 0.9% 10 Ml Syringe IVP 10 ml 0100,0900,1700 MAGI Administration Zinc Oxide 113 gm 09/01/24 18:34 Cod Liver Oil/Zinc Oxide 113 Gm Tube TOP PRN PRN Skin Care
[2024-09-02 18:48] LABS: BILIRUBIN,URINE NEGATIVE (NEGATIVE); GLUCOSE, URINE (UA) NEGATIVE (NEGATIVE); KETONES,URINE (UA) 15 mg/dL (NEGATIVE); LEUKOCYTE ESTERASE, URINE NEGATIVE (NEGATIVE); NITRITE,URINE NEGATIVE (NEGATIVE); OCCULT BLOOD,URINE SMALL (NEGATIVE); PROTEIN,URINE 30 mg/dL (NEGATIVE); UROBILINOGEN,URINE 0.2 (NORMAL) E.U./dL (NORMAL)
[2024-09-02 18:54] LABS: CLARITY,URINE CLEAR (CLEAR)
[2024-09-02 19:56] LABS: BACTERIA,URINE Few /HPF (None Seen); RBC,URINE 0-5 /HPF (0-5); SQUAMOUS EPITHELIAL CELL,UR FEW Squamous (<= Few)
[2024-09-02] MEDS: ACETAMINOPHEN 1,000 MG/100 ML 1,000 MG/100 ML BAG IV PRN (20:58)
[2024-09-03 05:29] LABS: BASOPHILS % (AUTO) 0.2 %; EOSINOPHILS % (AUTO) 0.5 %; HCT - HEMATOCRIT 41.7 % (42.0-52.0); HGB - HEMOGLOBIN 14.6 g/dL (14.0-18.0); LYMPHOCYTES # (AUTO) 0.7 10^3/uL (1.5-3.5); LYMPHOCYTES % (AUTO) 8.1 %; MEAN CORPUSCULAR HEMOGLOBIN 32.4 pg (27.0-31.0); MEAN CORPUSCULAR VOLUME 92.5 fL (80.0-94.0); MEAN PLATELET VOLUME 9.6 fL (7.4-11.4); MONOCYTES # (AUTO) 0.6 10^3/uL (0.0-1.0); MONOCYTES % (AUTO) 7.5 %; NEUTROPHILS % (AUTO) 83.2 %; PLT - PLATELET COUNT 118 10^3/uL (130-450); RED BLOOD COUNT 4.51 10^6/uL (4.70-6.10); RED CELL DISTRIBUTION WIDTH 13.2 % (12.0-15.0); WHITE BLOOD COUNT 8.4 x10^3/uL (4.8-10.8)
[2024-09-03 05:52] LABS: CALCIUM 8.9 mg/dL (8.5-10.3); CREATININE 0.6 mg/dL (0.6-1.3); MAGNESIUM 1.5 mg/dL (1.7-2.3); POTASSIUM 3.5 mmol/L (3.5-4.5)
--- NOTE | 2024-09-03 17:29 | PROVIDER PROGRESS NOTE ---
Progress Note Progress Note Progress Note: September 03, 2024 3 PM Subjective: Examined the patient this morning and I spoke to the this afternoon. She cannot bring herself to go into the room to see him. He gets so agitated when he sees her and he gets frustrated that it makes her cry. This morning he is so much more alert and awake for me. Continues to slightly improve every day (he was unresponsive on day 1) but he is still aphasic, unable to swallow. I simplify things by having him do yes no questions. When I ask him if he knows why he is here he nods his head yes. I asked him if it is because pneumonia, no. I asked because he broke his hip, no. I ask if it is because he had a stroke, nods yes. But he is deaf. I would lean and very closely for him to hear me. One of his hearing aids is missing. Nutrition services is understandably concerned. This gentleman probably has not eaten for 3 days. But family is not quite sure which direction they want to go. has spoken to daughter and they have had tentative conversations about him leaving here to go to the daughter's house in [place] for hospice. But at the same time he is much more alert, appears to be more interactive, and if he can have some quality time with the family they would like to have that chance. Maybe even send him to SNF. But I still have to address the issue of his not eating. If he goes to a [facility] I will have to put in a PEG tube. They do not know if they are willing to do that. states she is just overwhelmed. Tearful. Does not know what the right decision is and she wants to talk to her children today. On exam blood pressure is 165/88, pulse 67, respirations 18, temperature 36.5, O2 sat 97% on room air. When I walked in and 1 this morning he had managed to get intermediate out of bed. Legs were tossed over the bed rails, and he was laying diagonally across the bed with head on a pillow, legs coming down to the other edge of the opposite bed and legs are over the bed rail. He has very weak right extremity on upper and lower. Facial droop. Aphasia. Dysphagia. Gurgling phlegm at the base of his throat where he cannot clear secretions. Neck is supple with without JVD and he does have carotid bruits. Lungs have coarse upper rhonchi from secretions. But no tachypnea. No use of accessory muscles. He is at risk for aspiration even his own saliva. Regular rate and rhythm with a systolic ejection murmur. An abdomen is soft, nontender. Legs are thin with reduced muscle mass no edema.He is seen by PT and he is disoriented with a productive cough, unable to swallow. He appears to be anxious to them with decreased attention span. Speech is garbled. He is a moderate assist for bed mobility with 2 people needing to help. 1 person to sit him up. 2 people to stand him. And 2 people to keep him with truncal stability. They do not feel it is safe for him to progress to gait training yet because he needs so many people to help him stand or sit. PT feels that if he is going to be discharged with treatment that he would be need to discharge to a SNF for rehab. He is going to require 24/7 caregiver support and a hospital bed for home setting. I reviewed his labs: Hyponatremia to 133 but improved from yesterday's 130. Normal potassium. Normal BUN and creatinine. Glucose 111. Magnesium 1.5. White cell count is normal today. He was 12.2 yesterday 8.4 today. Hemoglobin 14.6. Platelets low at 118. Conclusion/Plan Problem List (1) Stroke Plan: I initially thought that this gentleman was postictal after [id number] seizures. But as time went on, it was clear that he is residual hemiplegia was much worse than baseline. He has had another stroke in the same distribution as his previous stroke. He is now left with dysphagia and aphasia. I cannot give him aspirin to swallow. I am ordering aspirin per rectum. He cannot take his statin. Permissive hypertension has been ongoing and his blood pressure is acceptable in the 170s and 150s. Starting tomorrow I may start giving him more medications to get him to the 140s. In the meantime he has been seen by PT and OT. He would be candidate for rehab in a limited fashion. But I need to get food in him via a PEG tube if he is to go to a half-way. He cannot go with an NG tube. The family needs to make that decision. is leaning toward hospice. Today she was very overwhelmed. Was going to go talk to kids. She is torn between hope and fatalsim. On the one hand he is more alert and interactive but on the other hand he still cannot swallow. (2) Aphasia and dysphagia Intermittent comprehension with my questioning. It does not help that he is deaf. He gets very frustrated that he cannot speak. Grunts, or nods his head or shakes his head no. I am waiting for family decision to let me know which direction they want to go. Do they want to start feeding him and then go to rehab or do they want a transition to hospice. All of his medications have been changed from p.o. to IV. I put in parameters for the IV metoprolol. Aspirin will be per rectum. I still Would not give him things like Flomax or Vesicare because it is all p.o. (3) Hypertension as above. (4) Witnessed seizure-like activity: Plan: Most likely focus is new stroke as yet not seen on CT or irritation of nidus of old scar tissue. 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 I am changing his meds to IV since can't take po. I am not ordering an MRI. He has already been loaded with Keppra. I have started Keppra 500 mg IV twice daily and increase dosing as needed. (5) Do not resuscitate: Plan: His states those are his wishes. (6) Hypomagnesemia I ordered 2 gram IV rider of mag sulfate
[2024-09-03] MEDS: MAGNESIUM SULFATE 2 GRAM 2 GM/50 ML BAG IV ONE (18:16)
[2024-09-03] MEDS: SODIUM CHLORIDE FLUSH 0.9% 10 ML SYRINGE IVP PRN (20:43)
[2024-09-03] MEDS: COD LIVER OIL/ZINC OXIDE 113 GM TUBE TOP PRN (21:34)
[2024-09-04 05:21] LABS: BASOPHILS % (AUTO) 0.2 %; EOSINOPHILS % (AUTO) 0.4 %; HCT - HEMATOCRIT 43.3 % (42.0-52.0); HGB - HEMOGLOBIN 15.4 g/dL (14.0-18.0); LYMPHOCYTES # (AUTO) 0.6 10^3/uL (1.5-3.5); LYMPHOCYTES % (AUTO) 6.1 %; MEAN CORPUSCULAR HEMOGLOBIN 32.6 pg (27.0-31.0); MEAN CORPUSCULAR HGB CONC 35.6 g/dL (32.0-36.0); MEAN CORPUSCULAR VOLUME 91.5 fL (80.0-94.0); MEAN PLATELET VOLUME 9.6 fL (7.4-11.4); MONOCYTES # (AUTO) 0.7 10^3/uL (0.0-1.0); MONOCYTES % (AUTO) 7.1 %; NEUTROPHILS # (AUTO) 8.6 10^3/uL (1.5-6.6); NEUTROPHILS % (AUTO) 85.8 %; PLT - PLATELET COUNT 128 10^3/uL (130-450); RED BLOOD COUNT 4.73 10^6/uL (4.70-6.10)
[2024-09-04 05:38] LABS: CALCIUM 8.8 mg/dL (8.5-10.3); CREATININE 0.5 mg/dL (0.6-1.3); POTASSIUM 3.2 mmol/L (3.5-4.5)
[2024-09-04] MEDS: ASPIRIN 300 MG SUPP PR SCH (09:59)
--- NOTE | 2024-09-04 15:54 | PROVIDER PROGRESS NOTE ---
Progress Note Progress Note Progress Note: September 04, 2024 3:45 PM I spoke to his . She had not come to the hospital today. Yesterday she had come to the hospital but could not bring herself to see him. Today she did not come at all. She is torn between 2 decisions. The first decision is to transition him to hospice at his daughter's home. But her daughter does not want her dad to there. The second decision is to transition to intermediate facility for rehab. But he is not able to swallow and I will have to place a feeding tube with the PEG to improve his nutritional status. Long-term prognosis for that is still poor. I do not think this gentleman will ever be able to be independent again with regards to standing, walking with a walker, feeding himself or bathing himself. And she does not have the wherewithal to be able to take care of him nor does she have the finances to place him in a intermediate facility. I think she is looking to her children to help guide her decision. The whole family will be here tomorrow in person and I can speak to them. On examination today: Blood pressure was 172/88, pulse 74, respirations 20, temp 36.4, O2 sat 98% on room air Today I find him to be the most alert I have ever seen him. He is sitting up in bed. Looking at the window. Looking at me. But unfortunately he seems more confused. Yesterday he was able to answer questions with a yes no nodding of the head or shaking of the head. Today all he can seem to do is nod his head yes a lot but I do not think his understanding what I am asking today. Note to self that this patient is deaf and only has 1 hearing aid in. He is not able to follow commands. He has deep gurgling at the base of his throat and nursing reports that he is not able to clear his secretions at all. He really is at risk for aspiration. Coarse upper airway sounds with gurgling but no tachypnea or increased respiratory effort Regular rate and rhythm with a systolic ejection murmur Abdomen is soft and nontender with normal bowel sounds Extremities are without edema Neurologically alert, disoriented, not following commands but stable. Right facial droop, right hemiplegia. Today he is wiggling his fingers and toes on the right side. Using his left hand to lift up his right hand. I reviewed today's labs: Sodium is stable at 133. He was 133 yesterday. Hypokalemic today to 3.2. Fasting glucose 105. White cell count is 10. Hemoglobin 15.4. Conclusion/Plan Problem List (1) Stroke Plan: I initially thought that this gentleman was postictal after [id number] seizures. But as time went on, it was clear that he is residual hemiplegia was much worse than baseline. He has had another stroke in the same distribution as his previous stroke. He is now left with dysphagia and aphasia. Since he cannot swallow he is on aspirin per rectum, and I am giving him as needed IV medications to control his blood pressure. Today's blood pressure is 172 systolic. I will start giving Vasotec 0.65 IV push Q8. In the meantime he has been seen by PT and OT. He would be candidate for rehab in a limited fashion. But I need to get food in him via a PEG tube if he is to go to a fdc. He cannot go with an NG tube. is still torn today. On the one hand she has identified [facility] as the agency she wants to use when he goes to hospice. But because he is alert, wonders if he could get rehab before that final decision is made. I even told her that he could go to rehab and see how well he did. If he fails rehab then he can go to hospice. But he will need a feeding tube and she cannot decide if she wants that or not. She and her son, and daughter will be here tomorrow and we will have a family conference. (2) Aphasia and dysphagia Intermittent comprehension with my questioning. It does not help that he is deaf. He gets very frustrated that he cannot speak. Grunts, or nods his head or shakes his head no. I am waiting for family decision to let me know which direction they want to go. (3) Hypertension as above. 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 I am changing his meds to IV since can't take po. I am not ordering an MRI. He has already been loaded with Keppra. I have started Keppra 500 mg IV twice daily and increase dosing as needed. (5) Do not resuscitate: Plan: His states those are his wishes. (6) Hypomagnesemia I ordered 2 gram IV rider of mag sulfate yesterday. I will recheck levels tomorrow.
[2024-09-04] MEDS: ENALAPRILAT 1.25 MG/ML VIAL IVP SCH (17:06)
[2024-09-05 05:30] LABS: BASOPHILS % (AUTO) 0.3 %; EOSINOPHILS # (AUTO) 0.1 10^3/uL (0.0-0.7); EOSINOPHILS % (AUTO) 1.6 %; HCT - HEMATOCRIT 39.8 % (42.0-52.0); HGB - HEMOGLOBIN 14.3 g/dL (14.0-18.0); LYMPHOCYTES # (AUTO) 0.6 10^3/uL (1.5-3.5); LYMPHOCYTES % (AUTO) 8.2 %; MEAN CORPUSCULAR HEMOGLOBIN 32.8 pg (27.0-31.0); MEAN CORPUSCULAR HGB CONC 35.9 g/dL (32.0-36.0); MEAN CORPUSCULAR VOLUME 91.3 fL (80.0-94.0); MEAN PLATELET VOLUME 10.2 fL (7.4-11.4); MONOCYTES # (AUTO) 0.5 10^3/uL (0.0-1.0); MONOCYTES % (AUTO) 6.7 %; NEUTROPHILS % (AUTO) 82.7 %; PLT - PLATELET COUNT 142 10^3/uL (130-450); RED BLOOD COUNT 4.36 10^6/uL (4.70-6.10); RED CELL DISTRIBUTION WIDTH 12.9 % (12.0-15.0); WHITE BLOOD COUNT 7.3 x10^3/uL (4.8-10.8)
[2024-09-05 05:59] LABS: CALCIUM 8.6 mg/dL (8.5-10.3); CREATININE 0.5 mg/dL (0.6-1.3); MAGNESIUM 1.4 mg/dL (1.7-2.3); POTASSIUM 2.9 mmol/L (3.5-4.5)
--- NOTE | 2024-09-05 16:17 | PROVIDER PROGRESS NOTE ---
Progress Note Progress Note Progress Note: September 05, 2024 4 PM finally came in today. This morning will get a phone call from her son stating that they were going to transition him to hospice. However this afternoon she came in to find him alert, trying to talk. She now has hope again if she has changed her mind. She would like him to go to a long term facility for rehab. Which means we now need to address his nutrition. Exam: Blood pressure 170/86, pulse 57, respirations 14, 99% on room air. Still has problems with clearing secretions. Lots of phlegm and lots of gurgling. Unable to swallow ice and coughs with RN. Coarse upper airway sounds. Diminished at the bases. No respiratory distress. Regular rate and rhythm with a systolic ejection murmur Abdomen is soft, nontender, nondistended Extremities without edema Neurologically this tanya man is alert, tracks with his eyes, and not following commands again today. Again not answering yes no. Desperately trying to talk. Has right hemiplegia that is 4/5+. Labs were reviewed by me: Hypokalemic again to 2.9 even though he received K riders yesterday. BUN/creatinine normal. Magnesium low at 1.4. CBC is again within normal white cell count. Normal hemoglobin. Conclusion/Plan Problem List (1) Stroke Plan: I initially thought that this gentleman was postictal after [id number] seizures. But as time went on, it was clear that he is residual hemiplegia was much worse than baseline. He has had another stroke in the same distribution as his previous stroke. He is now left with dysphagia and aphasia. Since he cannot swallow he is on aspirin per rectum, and I am giving him as needed IV medications to control his blood pressure. I started Vasotec 0.625 mg IV push Q8. Even with that his blood pressure is 170/86. In the meantime he has been seen by PT and OT. He would be candidate for rehab in a limited fashion. Family has been in the process to try and decide if they are going to transition to hospice or rehab for PT. This morning the son said hospice. This afternoon the now says SNF for PT. I will have social work tracer. (2) Aphasia and dysphagia As a consequence of a stroke. I will now place an NG feeding tube to start feeding him. I will ask general surgery to see him to put in a PEG. Nutrition services will see the patient in the morning. (3) Hypertension as above. 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 I am changing his meds to IV since can't take po. I am not ordering an MRI. He has already been loaded with Keppra. I have started Keppra 500 mg IV twice daily and increase dosing as needed. Once he is tolerating tube feeds, I will then change his medications to oral. (5) Do not resuscitate: Plan: His states those are his wishes. (6) Hypomagnesemia I ordered 2 gram IV rider of mag sulfate yesterday. I will recheck levels tomorrow. Current Medications Current Medications Current Medications: Current Medications Generic Name Dose Route Start Last Admin Trade Name Freq PRN Reason Stop Dose Admin Aspirin 81 mg 08/31/24 18:00 09/05/24 07:45 Aspirin Ec 81 Mg Tablet PO Not Given DAILY MAGI Aspirin 75 mg 09/04/24 09:00 09/05/24 09:20 Aspirin 300 Mg Supp NE 75 mg DAILY MAGI Administration Enalaprilat 0.625 mg 09/04/24 18:00 09/05/24 11:48 Enalaprilat 1.25 Mg/Ml Vial IVP 0.625 mg Q6HR MAGI Administration Sodium Chloride 1,000 mls @ 100 mls/hr 08/31/24 18:08 09/05/24 10:15 Normal Saline 0.9% IV 100 mls/hr .Q10H MAGI Administration Acetaminophen 1,000 mg in 100 mls @ 400 mls/hr 09/02/24 16:50 09/05/24 08:55 Acetaminophen IV Infused Q6HR PRN Infusion Moderate Pain (Level 4-6) Levetiracetam 500 mg 09/01/24 11:00 09/05/24 08:09 Levetiracetam 500 Mg/5 Ml Vial IVP 500 mg BID MAGI Administration Lorazepam 0.5 mg 09/01/24 13:43 Lorazepam 2 Mg/Ml Vial IVP Q2H PRN delirium Metoprolol Tartrate 5 mg 09/02/24 15:45 Metoprolol 5 Mg/5 Ml Vial IVP Q6H PRN Systolic BP 180 Morphine Sulfate 2 mg 08/31/24 18:12 09/04/24 10:12 Morphine 2 Mg/Ml Carpuject IVP 2 mg Q2HR PRN Administration Severe Pain (Level 7-10) Ondansetron HCl 4 mg 08/31/24 18:08 Ondansetron Odt 4 Mg Tablet TL Q6HR PRN Nausea / Vomiting Ondansetron HCl 4 mg 08/31/24 18:08 Ondansetron 4 Mg/2 Ml Vial IVP Q6HR PRN Nausea / Vomiting Sodium Chloride 10 ml 08/31/24 18:08 09/03/24 20:43 Sodium Chloride Flush 0.9% 10 Ml Syringe IVP 10 ml PRN PRN Administration NEEDED PER PROVIDER ORDERS Sodium Chloride 10 ml 09/01/24 01:00 09/05/24 08:09 Sodium Chloride Flush 0.9% 10 Ml Syringe IVP 10 ml 0100,0900,1700 MAGI Administration Zinc Oxide 113 gm 09/01/24 18:34 09/05/24 00:51 Cod Liver Oil/Zinc Oxide 113 Gm Tube TOP 1 applic PRN PRN Administration Skin Care
--- NOTE | 2024-09-05 17:54 | XRAY Report ---
PROCEDURE: XR Chest for Line Placement INDICATIONS: NGT placement TECHNIQUE: One view of the chest was acquired. COMPARISON: 07/21/2023. FINDINGS: Surgical changes and devices: NG tube tip is seen below the right hemidiaphragm and is in expected location of distal stomach lumen. Surgical clips are seen in right hilar region. Lungs and pleura: Small right pleural effusion is seen with right basilar infiltrate/atelectasis. No pneumothorax. Left lung is clear. Mediastinum: Mediastinal contours appear normal. Heart size is normal. Bones and chest wall: No suspicious bony lesions. Overlying soft tissues appear unremarkable. IMPRESSION: NG tube tip is in the distal stomach lumen below the right hemidiaphragm. Small right pleural effusion and right basilar infiltrate/atelectasis. No pneumothorax. Reviewed by: Sunil Vidal MD on 09/05/2024 5:53 PM PDT Approved by: Sunil Vidal MD on 09/05/2024 5:53 PM PDT Station ID: [id number]
[2024-09-05] MEDS: LORazepam 2 MG/ML VIAL IVP PRN (22:35)
[2024-09-06] MEDS: METOPROLOL 5 MG/5 ML VIAL IVP PRN (04:10)
--- NOTE | 2024-09-06 18:54 | PROVIDER PROGRESS NOTE ---
Progress Note Progress Note Progress Note: September 06, 2024 3 PM It has been a very difficult 2 to 3 days for this patient's . She is his DPOA and has not been able to make a final decision with regards to his disposition. I have given him 2 choices of going home with hospice or going to a assisted facility with rehab. She had decided on hospice and then at the last second change the plan to going with rehab which then resulted in me trying to place a feeding tube so he can at least be fed. He pulled out the feeding tube yesterday. So she wanted a PEG tube today. The asked me to please call her son to update him. So I called which at [phone]. Which is surprised by this conversation. As far as he knew, days ago, dad was supposed to go to hospice. To go to his sister's house. And passed peacefully away there. He recognized that his mom and his sister keep on changing their mind but he did not realize that I was changing my management of the patient on the basis of his mom's wishes. So I called his mom, and he is called me back and states that it is definitive. That is to be discharged to hospice. No PEG tube. To go to sisters house. I have notified social science instructor and case management. Exam: Patient's blood pressure continues to be elevated at 186/108 this after noon. Pulse 77. Respirations 20. Temperature 36.7. O2 sat 96% on room air. He is a disheveled elderly man who is unshaven, trying to speak but frustrated at his garbled delivery. Sometimes he understands enough to nod yes no to me, lately is getting less and less that he understands. But he does recognize his when she walks in the room. His right arm can move across the midline but his shoulder really hurts. So his mobility in his right arm is diminished not so much because of hemiplegia because of shoulder arthropathy. Right leg is moving better than it has last couple of days. He is strong enough that he can throw his legs over the side of the bed and try and get out of bed. Left leg is weak but not plegic. As is the left arm. He still unable to eat because of aspiration risk. Continues to have thick phlegm at the base of his throat. Lungs have coarse upper airway sounds. Gurgling. He only gets tachypnea when he is agitated and wants to get out of the bed. Otherwise, at rest, there is no increased respiratory effort. He has a regular rate and rhythm. The abdomen is soft and nontender. Hyperactive bowel sounds. Extremities are cachectic. Conclusion/Plan Problem List (1) Stroke Plan: I initially thought that this gentleman was postictal after [id number] seizures. But as time went on, it was clear that he is residual hemiplegia was much worse than baseline. He has had another stroke in the same distribution as his previous stroke. He is now left with dysphagia and aphasia. Since he cannot swallow he is on aspirin per rectum, and I am giving him as needed IV medications to control his blood pressure. I started Vasotec 0.625 mg IV push Q8. Even with that his blood pressure is 186/108. In the meantime he has been seen by PT and OT. He would be candidate for rehab in a limited fashion. Understandably so, it is been difficult for his to make a final decision. With family's decision today, the patient is to go to hospice. I have notified social work and case management. He is on IV Keppra, IV Vasotec because he cannot swallow. I will switch him over to clonidine patch. I am hoping that he will not have seizures because he will not be able to swallow Keppra. (2) Aphasia and dysphagia As a consequence of a stroke. NG feeding tube tried September 05. It was in place and I was getting ready to use it when he pulled the NG tube. I did contact general surgery today 3 different conversations. 1 was no PEG tube. Second was family changed her mind and want a PEG tube. And the third conversation was finally no PEG tube. (3) Hypertension as above. 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 I am changing his meds to IV since can't take po. I am not ordering an MRI. When he leaves here he will be on comfort medications only. He will not be able to take IV Keppra and he cannot swallow so he will not be able to take oral Keppra. (5) Do not resuscitate: Plan: His states those are his wishes. (6) Hypomagnesemia I ordered 2 gram IV rider of mag sulfate 09/04. Since he has been transition to hospice I will not supplement at this time Current Medications Current Medications Current Medications: Current Medications Generic Name Dose Route Start Last Admin Trade Name Freq PRN Reason Stop Dose Admin Aspirin 81 mg 08/31/24 18:00 09/06/24 10:46 Aspirin Ec 81 Mg Tablet PO 81 mg DAILY MAGI Administration Aspirin 75 mg 09/04/24 09:00 09/06/24 11:55 Aspirin 300 Mg Supp MI Not Given DAILY MAGI Clonidine HCl 1 patch 09/06/24 19:00 Clonidine 0.2 Mg Patch TOP Q7D MAGI Enalaprilat 0.625 mg 09/04/24 18:00 09/06/24 11:54 Enalaprilat 1.25 Mg/Ml Vial IVP 0.625 mg Q6HR MAGI Administration Sodium Chloride 1,000 mls @ 100 mls/hr 08/31/24 18:08 09/06/24 17:02 Normal Saline 0.9% IV 100 mls/hr .Q10H MAGI Administration Acetaminophen 1,000 mg in 100 mls @ 400 mls/hr 09/02/24 16:50 09/05/24 08:55 Acetaminophen IV Infused Q6HR PRN Infusion Moderate Pain (Level 4-6) Levetiracetam 500 mg 09/01/24 11:00 09/06/24 09:41 Levetiracetam 500 Mg/5 Ml Vial IVP 500 mg BID MAGI Administration Lorazepam 0.5 mg 09/01/24 13:43 09/06/24 16:54 Lorazepam 2 Mg/Ml Vial IVP 0.5 mg Q2H PRN Administration delirium Metoprolol Tartrate 5 mg 09/02/24 15:45 09/06/24 04:10 Metoprolol 5 Mg/5 Ml Vial IVP 5 mg Q6H PRN Administration Systolic BP 180 Morphine Sulfate 2 mg 08/31/24 18:12 09/06/24 14:38 Morphine 2 Mg/Ml Carpuject IVP 2 mg Q2HR PRN Administration Severe Pain (Level 7-10) Ondansetron HCl 4 mg 08/31/24 18:08 Ondansetron Odt 4 Mg Tablet TL Q6HR PRN Nausea / Vomiting Ondansetron HCl 4 mg 08/31/24 18:08 Ondansetron 4 Mg/2 Ml Vial IVP Q6HR PRN Nausea / Vomiting Sodium Chloride 10 ml 08/31/24 18:08 09/03/24 20:43 Sodium Chloride Flush 0.9% 10 Ml Syringe IVP 10 ml PRN PRN Administration NEEDED PER PROVIDER ORDERS Sodium Chloride 10 ml 09/01/24 01:00 09/06/24 17:03 Sodium Chloride Flush 0.9% 10 Ml Syringe IVP 10 ml 0100,0900,1700 MAGI Administration Zinc Oxide 113 gm 09/01/24 18:34 09/05/24 00:51 Cod Liver Oil/Zinc Oxide 113 Gm Tube TOP 1 applic PRN PRN Administration Skin Care
[2024-09-06 19:09] LABS: BASOPHILS % (AUTO) 0.4 %; EOSINOPHILS # (AUTO) 0.1 10^3/uL (0.0-0.7); EOSINOPHILS % (AUTO) 1.5 %; HCT - HEMATOCRIT 40.3 % (42.0-52.0); HGB - HEMOGLOBIN 14.5 g/dL (14.0-18.0); LYMPHOCYTES % (AUTO) 11.3 %; MEAN CORPUSCULAR HEMOGLOBIN 32.5 pg (27.0-31.0); MEAN CORPUSCULAR VOLUME 90.4 fL (80.0-94.0); MEAN PLATELET VOLUME 9.5 fL (7.4-11.4); MONOCYTES # (AUTO) 0.6 10^3/uL (0.0-1.0); MONOCYTES % (AUTO) 6.9 %; NEUTROPHILS # (AUTO) 6.7 10^3/uL (1.5-6.6); NEUTROPHILS % (AUTO) 79.3 %; PLT - PLATELET COUNT 161 10^3/uL (130-450); RED BLOOD COUNT 4.46 10^6/uL (4.70-6.10); RED CELL DISTRIBUTION WIDTH 12.8 % (12.0-15.0); WHITE BLOOD COUNT 8.4 x10^3/uL (4.8-10.8)
[2024-09-06 19:22] LABS: CALCIUM 8.5 mg/dL (8.5-10.3); CREATININE 0.5 mg/dL (0.6-1.3); POTASSIUM 2.8 mmol/L (3.5-4.5)
[2024-09-06] MEDS: cloNIDine 0.2 MG PATCH TOP SCH (22:24)
[2024-09-07] MEDS: ENALAPRILAT 1.25 MG/ML VIAL IVP SCH (04:14)
--- NOTE | 2024-09-07 10:09 | PROVIDER PROGRESS NOTE ---
Subjective Subjective Subjective: Patient responds to voice. He does not appear to be in pain or anxious. He is not able to fully make out sentences. He still unable to eat because of aspiration risk. Dr. Hernandez spoke extensively with the patient's and the son, they have opted to move forward with hospice. They would not like a PEG tube at this time. [facility] was spoken with, and they have an opening on 09/09 between 10 and 11 AM, DME will be delivered to the daughter's house, and I have sent comfort medications to the pharmacy today. We anticipate discharge on 09/09. Current Medications Current Medications Current Medications: Current Medications Generic Name Dose Route Start Last Admin Trade Name Freq PRN Reason Stop Dose Admin Aspirin 81 mg 08/31/24 18:00 09/07/24 08:56 Aspirin Ec 81 Mg Tablet PO 81 mg DAILY MAGI Administration Aspirin 75 mg 09/04/24 09:00 09/07/24 08:56 Aspirin 300 Mg Supp ME Not Given DAILY MAGI Clonidine HCl 1 patch 09/06/24 19:00 09/06/24 22:24 Clonidine 0.2 Mg Patch TOP 1 patch Q7D MAGI Administration Enalaprilat 0.625 mg 09/07/24 04:00 09/07/24 04:14 Enalaprilat 1.25 Mg/Ml Vial IVP 0.625 mg Q6H MAGI Administration Sodium Chloride 1,000 mls @ 100 mls/hr 08/31/24 18:08 09/07/24 02:23 Normal Saline 0.9% IV 100 mls/hr .Q10H MAGI Administration Acetaminophen 1,000 mg in 100 mls @ 400 mls/hr 09/02/24 16:50 09/05/24 08:55 Acetaminophen IV Infused Q6HR PRN Infusion Moderate Pain (Level 4-6) Levetiracetam 500 mg 09/01/24 11:00 09/07/24 08:56 Levetiracetam 500 Mg/5 Ml Vial IVP 500 mg BID MAGI Administration Lorazepam 0.5 mg 09/01/24 13:43 09/06/24 16:54 Lorazepam 2 Mg/Ml Vial IVP 0.5 mg Q2H PRN Administration delirium Metoprolol Tartrate 5 mg 09/02/24 15:45 09/06/24 04:10 Metoprolol 5 Mg/5 Ml Vial IVP 5 mg Q6H PRN Administration Systolic BP 180 Morphine Sulfate 2 mg 08/31/24 18:12 09/07/24 10:01 Morphine 2 Mg/Ml Carpuject IVP 2 mg Q2HR PRN Administration Severe Pain (Level 7-10) Ondansetron HCl 4 mg 08/31/24 18:08 Ondansetron Odt 4 Mg Tablet TL Q6HR PRN Nausea / Vomiting Ondansetron HCl 4 mg 08/31/24 18:08 Ondansetron 4 Mg/2 Ml Vial IVP Q6HR PRN Nausea / Vomiting Sodium Chloride 10 ml 08/31/24 18:08 09/03/24 20:43 Sodium Chloride Flush 0.9% 10 Ml Syringe IVP 10 ml PRN PRN Administration NEEDED PER PROVIDER ORDERS Sodium Chloride 10 ml 09/01/24 01:00 09/07/24 08:57 Sodium Chloride Flush 0.9% 10 Ml Syringe IVP 10 ml 0100,0900,1700 MAGI Administration Zinc Oxide 113 gm 09/01/24 18:34 09/05/24 00:51 Cod Liver Oil/Zinc Oxide 113 Gm Tube TOP 1 applic PRN PRN Administration Skin Care Objective Vital Signs/Intake & Output Reviewed Vital Signs: Yes Vital Signs: Vital Signs x48h Temp Pulse Pulse Resp BP Pulse Ox 09/07/24 07:45 97.3 F L 76 20 168/110 H 98 09/07/24 04:21 167/95 H 09/07/24 04:12 97.5 F L 73 16 166/107 H 98 Intake & Output: Intake & Output 09/04/24 09/05/24 09/06/24 09/07/24 23:59 23:59 23:59 23:59 Intake Total 3063 / 3063 2172 / 2172 1999 935 / 935 Output Total Balance 3063 / 3063 2171 / 2170 935 / 935 Weight (kg) 93 kg 92 kg 91 kg 91 kg Objective General Appearance: positive No acute distress; negative Anxious Eyes Bilateral: positive Normal inspection and PERRL ENT: positive ENT inspection nml and Pharynx nml Respiratory: positive Chest non-tender, Wheezes, Rales and Rhonchi Cardiovascular: positive Regular rate & rhythm, No murmur and No gallop; negative Tachycardia or Systolic murmur Abdomen: positive Non-tender, No organomegaly and No distention; negative Guarding or Splenomegaly Back: positive Nml inspection; negative CVA tenderness (R) or CVA tenderness (L) Skin: positive Color nml, No rash, Warm and Dry Extremities: positive Non-tender and No pedal edema Neurologic/Psychiatric: positive Other (Aphasia, unable to speak, garbled speech, L sided 4 out of 5 strength in upper and lower extremities. Right shoulder pain leading to limited movement.) Lab Results 09/06/24 19:05 09/06/24 19:05 Other Labs: Lab Results x24hrs 09/06/24 Range/Units 19:05 WBC 8.4 (4.8-10.8) x10^3/uL RBC 4.46 L (4.70-6.10) 10^6/uL Hgb 14.5 (14.0-18.0) g/dL Hct 40.3 L (42.0-52.0) % MCV 90.4 (80.0-94.0) fL MCH 32.5 H (27.0-31.0) pg MCHC 36.0 (32.0-36.0) g/dL RDW 12.8 (12.0-15.0) % Plt Count 161 (130-450) 10^3/uL MPV 9.5 (7.4-11.4) fL Neut # (Auto) 6.7 H (1.5-6.6) 10^3/uL Lymph # (Auto) 1.0 L (1.5-3.5) 10^3/uL [facility] # (Auto) 0.6 (0.0-1.0) 10^3/uL Eos # (Auto) 0.1 (0.0-0.7) 10^3/uL Baso # (Auto) 0.0 (0.0-0.1) 10^3/uL Absolute Nucleated RBC 0.00 x10^3/uL Nucleated RBC % 0.0 /100WBC Sodium 134 L (135-145) mmol/L Potassium 2.8 L (3.5-4.5) mmol/L Chloride 96 L (101-111) mmol/L Carbon Dioxide 28 (21-32) mmol/L Anion Gap 10.0 (6-13) BUN 10 (6-20) mg/dL Creatinine 0.5 L (0.6-1.3) mg/dL Estimated GFR (MDRD) 158 (>89) Glucose 91 (74-104) mg/dL Calcium 8.5 (8.5-10.3) mg/dL Magnesium 1.0 L* (1.7-2.3) mg/dL Assessment/Plan Problem List (1) CVA (cerebral vascular accident): Impression: Patient 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 However, prior to this event, his speech was usually clear. Has word finding difficulties, and memory issues. Patient presented with seizure activity, and was down for an unknown amount of time. After this postictal state, he had a new hemiplegia, as well as dysphagia and aphasia with this. Long goals of care discussion occurred with and son; plan is to make him hospice at home. PEG tube declined. [facility] will do an intake on . Patient is unable to swallow; while he is here, we can continue him on IV Keppra. I have stopped his aspirin and statin. On discharge, will give him a script for Roxanol and Ativan as needed. Will implement comfort measures only: Patient does not appear to be in pain or anxious. Qualifiers: CVA mechanism: unspecified Qualified Code(s): I63.9 - Cerebral infarction, unspecified (2) Do not resuscitate: Impression: Plan is Hospice care. Will stay in hospital until intake on 09/09.
--- NOTE | 2024-09-08 09:04 | PROVIDER PROGRESS NOTE ---
Subjective Subjective Subjective: Patient responds to voice. He does not appear to be in pain or anxious. He is not able to fully make out sentences. He still unable to eat because of aspiration risk. Dr. Hernandez spoke extensively with the patient's and the son, they have opted to move forward with hospice. They would not like a PEG tube at this time. [facility] was spoken with, and they have an opening on 09/09 between 10 and 11 AM, DME will be delivered to the daughter's house, and I have sent comfort medications to the pharmacy today. We anticipate discharge on 09/09. Current Medications Current Medications Current Medications: Current Medications Generic Name Dose Route Start Last Admin Trade Name Freq PRN Reason Stop Dose Admin Clonidine HCl 1 patch 09/06/24 19:00 09/06/24 22:24 Clonidine 0.2 Mg Patch TOP 1 patch Q7D MAGI Administration Enalaprilat 0.625 mg 09/07/24 04:00 09/08/24 04:09 Enalaprilat 1.25 Mg/Ml Vial IVP 0.625 mg Q6H MAGI Administration Acetaminophen 1,000 mg in 100 mls @ 400 mls/hr 09/02/24 16:50 09/05/24 08:55 Acetaminophen IV Infused Q6HR PRN Infusion Moderate Pain (Level 4-6) Levetiracetam 500 mg 09/01/24 11:00 09/08/24 08:08 Levetiracetam 500 Mg/5 Ml Vial IVP 500 mg BID AMGI Administration Lorazepam 0.5 mg 09/01/24 13:43 09/08/24 08:07 Lorazepam 2 Mg/Ml Vial IVP 0.5 mg Q2H PRN Administration delirium Metoprolol Tartrate 5 mg 09/02/24 15:45 09/06/24 04:10 Metoprolol 5 Mg/5 Ml Vial IVP 5 mg Q6H PRN Administration Systolic BP 180 Morphine Sulfate 2 mg 08/31/24 18:12 09/08/24 07:28 Morphine 2 Mg/Ml Carpuject IVP 2 mg Q2HR PRN Administration Severe Pain (Level 7-10) Ondansetron HCl 4 mg 08/31/24 18:08 Ondansetron 4 Mg/2 Ml Vial IVP Q6HR PRN Nausea / Vomiting Sodium Chloride 10 ml 08/31/24 18:08 09/03/24 20:43 Sodium Chloride Flush 0.9% 10 Ml Syringe IVP 10 ml PRN PRN Administration NEEDED PER PROVIDER ORDERS Sodium Chloride 10 ml 09/01/24 01:00 09/08/24 00:17 Sodium Chloride Flush 0.9% 10 Ml Syringe IVP 10 ml 0100,0900,1700 MAGI Administration Zinc Oxide 113 gm 09/01/24 18:34 09/05/24 00:51 Cod Liver Oil/Zinc Oxide 113 Gm Tube TOP 1 applic PRN PRN Administration Skin Care Objective Vital Signs/Intake & Output Reviewed Vital Signs: Yes Vital Signs: Vital Signs x48h Temp Pulse Resp BP 09/08/24 07:57 97.7 F 77 16 160/81 H 09/08/24 04:22 98 144/87 H 09/08/24 04:17 94 141/98 H 09/08/24 04:12 99 150/90 H 09/08/24 04:11 104 H 165/114 H Intake & Output: Intake & Output 09/05/24 09/06/24 09/07/24 09/08/24 23:59 23:59 23:59 23:59 Intake Total 2171 Output Total Balance 2170 Weight (kg) 92 kg 91 kg 91 kg 90 kg Objective General Appearance: positive No acute distress; negative Anxious Eyes Bilateral: positive Normal inspection and PERRL ENT: positive ENT inspection nml and Pharynx nml Respiratory: positive Chest non-tender, Wheezes, Rales and Rhonchi Cardiovascular: positive Regular rate & rhythm, No murmur and No gallop; negative Tachycardia or Systolic murmur Abdomen: positive Non-tender, No organomegaly and No distention; negative Guarding or Splenomegaly Back: positive Nml inspection; negative CVA tenderness (R) or CVA tenderness (L) Skin: positive Color nml, No rash, Warm and Dry Extremities: positive Non-tender and No pedal edema Neurologic/Psychiatric: positive Other (Aphasia, unable to speak, garbled speech, L sided 4 out of 5 strength in upper and lower extremities. Right shoulder pain leading to limited movement.) Lab Results 09/06/24 19:05 09/06/24 19:05 Other Labs: Lab Results x24hrs 09/06/24 Range/Units 19:05 WBC 8.4 (4.8-10.8) x10^3/uL RBC 4.46 L (4.70-6.10) 10^6/uL Hgb 14.5 (14.0-18.0) g/dL Hct 40.3 L (42.0-52.0) % MCV 90.4 (80.0-94.0) fL MCH 32.5 H (27.0-31.0) pg MCHC 36.0 (32.0-36.0) g/dL RDW 12.8 (12.0-15.0) % Plt Count 161 (130-450) 10^3/uL MPV 9.5 (7.4-11.4) fL Neut # (Auto) 6.7 H (1.5-6.6) 10^3/uL Lymph # (Auto) 1.0 L (1.5-3.5) 10^3/uL Piatt # (Auto) 0.6 (0.0-1.0) 10^3/uL Eos # (Auto) 0.1 (0.0-0.7) 10^3/uL Baso # (Auto) 0.0 (0.0-0.1) 10^3/uL Absolute Nucleated RBC 0.00 x10^3/uL Nucleated RBC % 0.0 /100WBC Sodium 134 L (135-145) mmol/L Potassium 2.8 L (3.5-4.5) mmol/L Chloride 96 L (101-111) mmol/L Carbon Dioxide 28 (21-32) mmol/L Anion Gap 10.0 (6-13) BUN 10 (6-20) mg/dL Creatinine 0.5 L (0.6-1.3) mg/dL Estimated GFR (MDRD) 158 (>89) Glucose 91 (74-104) mg/dL Calcium 8.5 (8.5-10.3) mg/dL Magnesium 1.0 L* (1.7-2.3) mg/dL Assessment/Plan Problem List (1) CVA (cerebral vascular accident): Impression: Patient 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 However, prior to this event, his speech was usually clear. Has word finding difficulties, and memory issues. Patient presented with seizure activity, and was down for an unknown amount of time. After this postictal state, he had a new hemiplegia, as well as dysphagia and aphasia with this. Long goals of care discussion occurred with and son; plan is to make him hospice at home. PEG tube declined. Hospice [facility] will do an intake on . Patient is unable to swallow; while he is here, we can continue him on IV Keppra. I have stopped his aspirin and statin. On discharge, will give him a script for Roxanol and Ativan as needed. Will implement comfort measures only: Patient does not appear to be in pain or anxious. Qualifiers: CVA mechanism: unspecified Qualified Code(s): I63.9 - Cerebral infarction, unspecified (2) Do not resuscitate: Impression: Plan is Hospice care. Will stay in hospital until intake on 09/09.
--- NOTE | 2024-09-08 13:12 | Discharge Summary ---
"Discharge Summary Admit Date: 08/31/24 Discharge Date: 09/08/24 Discharging Provider: Dr. Cesar Fraga Primary Care Provider: Sean Coles MD Code Status: Do Not Attempt Resuscitation Discharge Facility Name: Home, Hospice DIAGNOSES Admission Diagnoses: Post-ictal confusion Witnessed seizure-like activity Do not resuscitate Discharge Diagnoses with Status of Each Condition: CVA Patient presented with seizure activity, and was down for an unknown amount of time. After this postictal state, he had a new hemiplegia, as well as dysphagia and aphasia with this. Long goals of care discussion occurred with and son; plan is to make him hospice at home. PEG tube declined. Hospice [facility] will do an intake on . Patient is unable to swallow; while he is here, we can continue him on IV Keppra. I have stopped his aspirin and statin. On discharge, will give him a script for Roxanol and Ativan as needed. Will implement comfort measures only: Patient does not appear to be in pain or anxious. Do not resuscitate Plan is Hospice care. Will stay in hospital until intake on 09/09. HPI History of Present Illness: Per Dr. Ba: The patient presented to the emergency room August 30 with a [place] Coma Scale of 3. He had gone to the bathroom and had been gone for a few hours with last known normal 3 PM when the decided she needed to go find him in the house. She was in another part of the house. She found him seizing and collapsed outside their bedroom. She said that she thinks that he seized about 3 times and was unresponsive. His right arm and leg were jerking and his eyes were moving [id number] in his head. He is a DO NOT RESUSCITATE DO NOT INTUBATE. She called the ambulance. Code stroke was initiated and he was brought to the emergency room by approximately 6:30 PM. The emergency room provider noted that he had a history of stroke with residual right-sided weakness and aphasia, benign prostatic hypertrophy, hypertension, and coronary artery disease. At baseline his speech is usually clear. He has problems with memory. Drinks 2 glasses of wine a day. Occasionally has word finding difficulties. In the ER, he was hypertensive. He had a leftward gaze preference, unresponsive, and continued to have rhythmic seizure-like movements of the right lower extremity. Not able to follow commands. Could not speak when requested. Pupils were reactive to light. Mildly hyponatremic at 133 but that is his baseline. Anion gap was 17. Lactic acid 2.6. Magnesium low at 1.0. CK3 38. White cell count was normal at 8.5. No anemia. His urinalysis did not have a UTI. No culture will be done. He did have many urine bacteria but squamous cells. 0-3 white cells, and 0-5 red cells. Leukocyte Estrace negative. Imaging of his head has his old stroke but no acute changes. He has an old left parietal infarct. The patient was loaded with Keppra and given empiric treatment for possible UTI. He continued to be minimally responsive, sleepy. Magnesium was supplemented IV. Follow-up lactic acid was normal at 0.8. There are no beds in the hospital so the patient could not be placed in observation. He stayed in the emergency room overnight and began waking up. He was waking with out stimuli. He would wake with gentle shake of his shoulder and having verbal replies that were appropriate. But he was not following commands. Eye contact was now present. By this afternoon he is still sleepy. Spends most of the day sleeping but will wake up when you tap her shoulder or call his name. When I saw him he smiles spontaneously when I walked in the room to introduce myself. But speech is still not normal. states that he has normal speech function with memory loss and that is not present right now. His responses were monosyllabic. Since the patient has hypertension, and the continued altered mental status with postictal presentation to the ER yesterday, I think he should be monitored for his confusional state of disorientation and difficulty following commands with the new deficit and following commands until he is to baseline. If he does not respond to just simple observation measures overnight, I will have to discuss what the family has planned. CONSULTS | PROCEDURES Consultations: Hospice Procedures: Head CT, CTA, chest x-ray HOSPITAL COURSE Hospital Course: Patient is a 84-year-old male with a history of CVA who presented after witnessed seizure at home. After the postictal period, patient remained aphasic, and had difficulty swallowing. Goals of care were addressed with the patient's , as well as the patient's son and family. Initially, there were conversations about an NG tube or PEG tube to help with feeding. However, family opted for hospice. Social work, hospice were consulted. Hospice was set up at home. ALLERGIES Allergies Allergy/AdvReac Type Severity Reaction Status Date / Time No Known Drug Allergies Allergy Verified 08/30/24 18:38 MEDICATIONS Ambulatory Orders Medication Instructions Recorded Confirmed bisacodyl 10 mg rectal suppository 10 mg NM DAILY PRN Constipation #3 09/07/24 (Dulcolax (bisacodyl)) ea lorazepam 0.5 mg tablet (Ativan) 0.5 mg PO Q6H PRN Anx iety #10 tabs 09/07/24 morphine concentrate 100 mg/5 mL 5 mg (0.25 mL) PO Q4H PRN pain or 09/07/24 (20 mg/mL) oral solution breathlessness #30 mL clonidine 0.2 mg/24 hr weekly 1 patch topical Q7D #4 e a 09/08/24 transdermal patch PHYSICAL EXAM AT DISCHARGE Vital Signs: Vital Signs x48h Temp Pulse Resp BP 09/08/24 07:57 97.7 F 77 16 160/81 H General Appearance: positive No acute distress and Anxious Eyes Bilateral: positive Normal inspection and PERRL ENT: positive ENT inspection nml, Pharynx nml and No signs of dehydration Neck: positive Nml inspection, Thyroid nml and No JVD Respiratory: positive Chest non-tender, No respiratory distress and Rhonchi (diffuse, in all lung miller); negative Wheezes or Rales Cardiovascular: positive Regular rate & rhythm, No murmur and Tachycardia Peripheral Pulses: positive 2+ Abdomen: positive Non-tender; negative Rebound, Hepatomegaly or Mass Back: positive Nml inspection; negative CVA tenderness (R) or CVA tenderness (L) Skin: positive Color nml, No rash, Warm and Dry Extremities: positive Other (Aphasia, unable to speak, garbled speech, L sided 4 out of 5 strength in upper and lower extremities. Right shoulder pain leading to limited movement.) LABS 09/06/24 19:05 09/06/24 19:05 FOLLOW UP Follow Up: Follow up with Hospice care. TIME SPENT Time Spent in Discharge (Minutes): 40 Discharge Plan Discharge Patient Disposition: 50 Hospice/Home DC/Xfer Condition: Stable Prescriptions: New morphine concentrate 100 mg/5 mL (20 mg/mL) Solution 5 mg PO Q4H PRN (Reason: pain or breathlessness) Qty: 30 0RF Rx Instructions: Take 0.25 ml (equal to 5 mg) by mouth, or under the tongue, every 4 hours as needed for moderate to severe pain. lorazepam [Ativan] 0.5 mg Tablet 0.5 mg PO Q6H PRN (Reason: Anxiety) Qty: 10 0RF Rx Instructions: Take one tablet, by mouth, every 6 hours as needed for anxiety. bisacodyl [Dulcolax (bisacodyl)] 10 mg Suppository 10 mg NM DAILY PRN (Reason: Constipation) Qty: 3 0RF Rx Instructions: Unwrap and insert one suppository rectally daily, as needed for constipation. clonidine 0.2 mg/24 hr Patch Weekly 1 patch topical Q7D Qty: 4 0RF Discontinued tamsulosin 0.4 MG capsule 0.4 mg PO BID aspirin 81 MG tablet,delayed release (DR/EC) 81 mg PO QAM omeprazole 20 mg capsule,delayed release(DR/EC) 20 mg PO QAM sertraline 50 mg tablet 50 mg PO QAM Patient Comments: TAKE 1 TABLET BY MOUTH ONCE DAILY oxybutynin chloride 10 mg tablet extended release 24hr 10 mg PO QPM Activity Restrictions: Activity as Tolerated Diet: Soft Health Concerns: You came in because you had a witnessed seizure. After this event, you were confused. You were noted to have new weaknesses, difficulty swallowing, as well as difficulty speaking. We had a long conversation with family members about goals of care moving forward. They have opted for hospice care, to ensure that you are comfortable. We are glad you will be surrounded by your loved ones and that you have so much support. Print Language: Austrian Patient Instructions: What Is Hospice? Stand Alone Forms: PCP List"
[2024-09-08 15:40] VITALS: TEMP 97.9; O2SAT 98
[2024-09-08] MEDS: MORPHINE 2 MG/ML CARPUJECT IVP PRN (19:45)
[2024-09-08] MEDS: OLANZapine ODT 5 MG TABLET TL PRN (19:45)
[2024-09-08] MEDS: LORazepam 2 MG/ML VIAL IVP PRN (22:56)
[2024-09-09] VITALS: BP 143/83
== END 2024-09-09 06:15 | disposition hospice, home (50) | DRG 65 ==
LOC: ED 18:30 → MS3 18:30 → MS2 09-06 15:36
PROVIDERS: ADMIT Specialist; ATTEND Specialist
DX: I69.351 Hemiplegia and hemiparesis following cerebral infarction affecting right dominant side; E86.0 Dehydration; R29.810 Facial weakness; G81.91 Hemiplegia, unspecified affecting right dominant side; I45.10 Unspecified right bundle-branch block; R47.89 Other speech disturbances; R00.0 Tachycardia, unspecified; H91.90 Unspecified hearing loss, unspecified ear; E83.42 Hypomagnesemia; I10 Essential (primary) hypertension; I69.320 Aphasia following cerebral infarction; D72.829 Elevated white blood cell count, unspecified; R56.9 Unspecified convulsions; M19.011 Primary osteoarthritis, right shoulder; F05 Delirium due to known physiological condition; Z66 Do not resuscitate; E87.1 Hypo-osmolality and hyponatremia; I63.9 Cerebral infarction, unspecified; N40.0 Benign prostatic hyperplasia without lower urinary tract symptoms; R13.10 Dysphagia, unspecified; R47.01 Aphasia; N40.1 Benign prostatic hyperplasia with lower urinary tract symptoms; E87.6 Hypokalemia; I69.398 Other sequelae of cerebral infarction; R41.82 Altered mental status, unspecified; N39.498 Other specified urinary incontinence; R01.1 Cardiac murmur, unspecified; I25.10 Atherosclerotic heart disease of native coronary artery without angina pectoris